=== PATIENT | female | born 1945 | race Caucasian/White ===

== ENCOUNTER 2020-12-16 13:05 | Outpatient (REF) | payer MEDICARE, SELFPAY ==
--- NOTE | ~2020-12-16 | XR_ITS ---
EXAMINATION: XR RIBS, RIGHT CLINICAL INFORMATION: Pleurodynia COMPARISON: Previous chest x-ray May 2019 TECHNIQUE: 3 views of the right ribs and one view of the chest were obtained. FINDINGS: The cardiac and mediastinal contours are stable. There is a large esophageal hernia. There are bilateral pulmonary nodules that are stable. The largest measures 1 cm in the left upper lobe. The lungs are otherwise clear. There is no pleural effusion or pneumothorax. There are right second through 10th rib fractures. These do not appear acute. There are degenerative changes of the spine. There is curvature of the thoracic spine to the right. There multiple thoracic compression fractures and post vertebroplasty changes. XR/XR ribs RT min 3V w CXR1V IMPRESSION: Multiple old-appearing right-sided rib fractures. No acute fracture seen.
== END 2020-12-16 13:06 | disposition home or self-care (01) ==
LOC: HO.HMGCX 13:05
PROVIDERS: PCP Hospitalist; Visit Provider Hospitalist
DX: R07.81 Pleurodynia (principal)
CPT/HCPCS: 71101

== ENCOUNTER 2021-01-04 11:48 | Outpatient (REF) | payer MEDICARE, SELFPAY ==
--- NOTE | ~2021-01-04 | XR_ITS ---
EXAMINATION: XR RIBS, RIGHT CLINICAL INFORMATION: Pleurodynia COMPARISON: Previous chest and right rib x-rays 12/16/2020 TECHNIQUE: 3 views of the right ribs were obtained. FINDINGS: There are multiple old-appearing right rib fractures. There are acute-appearing right seventh and eighth rib fractures. There are new patchy nodular opacities seen in the right lung worrisome for pneumonia. The cardiac and mediastinal contours are stable. There is a large esophageal hernia. There are multiple left lung nodules that are stable, largest measuring 1 cm. There is no pleural effusion or pneumothorax. There is scoliosis and degenerative changes of the thoracic spine. There are multiple old thoracic vertebral body compression fractures. There are post vertebroplasty changes. XR/XR ribs RT min 3V w CXR1V IMPRESSION: Multiple old right rib fractures. Acute-appearing right seventh and eighth rib fractures. New patchy opacities in the right lung worrisome for pneumonia.
== END 2021-01-04 11:49 | disposition home or self-care (01) ==
LOC: HO.HMGCX 11:48
PROVIDERS: PCP Hospitalist; Visit Provider Nurse Practitioner Family
DX: R07.81 Pleurodynia (principal); R06.02 Shortness of breath
CPT/HCPCS: 71101

== ENCOUNTER 2021-03-03 12:06 | Outpatient (REF) | payer MEDICARE, SELFPAY ==
--- NOTE | ~2021-03-03 | XR_ITS ---
EXAMINATION: XR CHEST CLINICAL INFORMATION: Shortness of breath COMPARISON: Rib radiographs from 01/04/2021, chest radiograph from 06/02/2019 TECHNIQUE: 2 views of the chest were obtained. FINDINGS: Multiple lung nodules the largest in the left upper lobe, stable in size measuring approximately 1.0 cm. Slightly increased patchy opacities in the right mid and lower lung field. Chronic interstitial lung markings. Biapical pleural parenchymal scarring. No pneumothorax. Trachea is midline. Large hiatal hernia. Cardiomediastinal silhouette is stable. No large pleural effusions. Osteopenia. Exaggeration of the thoracic kyphosis. Multilevel thoracolumbar vertebral augmentation. Soft tissues are unremarkable. XR/XR chest 2V IMPRESSION: 1. Multiple lung nodules the largest in the left upper lobe, stable in size measuring approximately 1.0 cm. 2. Slightly increased patchy opacities in the right mid and lower lung field. Developing infiltrate not excluded. 3. Chronic interstitial lung markings. 4. Biapical pleural parenchymal scarring. 5. Large hiatal hernia.
== END 2021-03-03 12:07 | disposition home or self-care (01) ==
LOC: HO.HMGCX 12:06
PROVIDERS: PCP Hospitalist; Visit Provider Hospitalist
DX: Z13.89 Encounter for screening for other disorder (principal)
CPT/HCPCS: 71046

== ENCOUNTER 2021-03-23 10:00 | Emergency (ER) | payer MEDICARE, SELFPAY ==
--- NOTE | ~2021-03-23 | CT_ITS ---
EXAMINATION: CT ANGIOGRAM OF THE CHEST WITH AND WITHOUT CONTRAST (CT PULMONARY ANGIOGRAM FOR PE) CLINICAL INFORMATION: Reason for Exam SOB, chest pain, hx PE, right rib pain s/p fall COMPARISON: Previous chest x-rays most recent from earlier the same day TECHNIQUE: Prior to contrast administration, noncontrast localization images were obtained. Subsequently, multidetector volumetric imaging was performed from the thoracic inlet to below the diaphragms following the administration 65 mL Omnipaque 350 intravenous contrast. No contrast reaction reported Sagittal, coronal, and MIP oblique sagittal reformatted images were obtained on the CT workstation, uploaded to PACS, and reviewed. This CT examination was performed using dose optimization techniques as appropriate, variously including the following: *Automated exposure control *Adjustment of mA and/or kV according to patient size (this includes techniques or standardized protocols for targeted exams where dose is matched to indication/reason for exam; i.e. extremities or head) *Use of iterative reconstruction technique Total exam dose-length product 215 mGy-cm FINDINGS: QUALITY OF STUDY/CONTRAST BOLUS: Satisfactory. PULMONARY ARTERIES: No central or segmental pulmonary emboli. THORACIC AORTA: No aneurysm or dissection. LUNG: There is evidence of severe emphysema. There are innumerable calcified pulmonary nodules suggestive of old granulomatous disease. The largest measures 1.1 x 1.5 cm in the left upper lobe axial image 11 series 5. There several central noncalcified nodules in the right middle lobe measuring 7 mm axial image 26 series 5, 5 mm axial image 29 series 5 and 7 mm axial image 30 series 5. There are several central noncalcified right lower lobe nodules as well 29 and 30 series 5. These probably represent extension of hilar adenopathy or intrapulmonary lymph nodes. There are increased interstitial markings and increased attenuation seen in the right lower lobe questionable for pneumonia or contusion.. PLEURA: No pleural effusion or pneumothorax. MEDIASTINUM: There is a large esophageal hernia or intrathoracic stomach. Heart does not appear enlarged. The thoracic aorta is tortuous. Pulmonary arteries are normal in size. There is diffuse mediastinal and bilateral hilar lymphadenopathy. No evidence of septal bowing or right heart strain. CHEST WALL/AXILLA: No axillary or internal mammary lymphadenopathy. OSSEOUS STRUCTURES: There are acute right posterior lateral ninth and 10th rib fractures. There is increased sclerosis of the right anterior third fourth and fifth ribs suggestive of older healing fractures. There are recent appearing left anterior second through fifth rib fractures. There are old healed left posterior 11th and 12th rib fractures. There are T 9 and T12 vertebral body compression fractures and post kyphoplasty changes. There are old-appearing T8 and T11 vertebral body compression fractures. There are T4 and T6 vertebral body compression fractures that may be recent. There is increased kyphosis. UPPER ABDOMEN: Unremarkable. No reflux of contrast into the hepatic veins to suggest elevated right heart pressures. CT/CT angio chest PE protocol IMPRESSION: No evidence of pulmonary embolism. Severe emphysema. Multiple calcified pulmonary nodules. Question small pneumonia or contusion in the right lower lobe. Multiple bilateral rib fractures of varying ages. There are right posterior lateral ninth and 10th rib fractures that appear acute. Increased thoracic kyphosis and multiple compression fractures. There are T4 and T6 compression fractures that may be recent. Large esophageal hernia. Mediastinal and hilar lymphadenopathy. VTE: negative
--- NOTE | ~2021-03-23 | XR_ITS ---
EXAMINATION: XR CHEST CLINICAL INFORMATION: Fall, trauma COMPARISON: Chest radiographs 03/03/2021, 01/04/2021, 12/16/2020, 07/08/2018 TECHNIQUE: 2 views of the chest were obtained. FINDINGS: Chest appears stable from recent exam 03/03/2021. Again, there is coarsening and possible superimposed basilar infiltrate right middle and lower zone without interval change. No interval new airspace opacity or pneumothorax, pleural reaction, or effusion. The costophrenic sulci are clear. There is a chronic probable calcified nodule left upper lobe stable from 2019. There is a stable moderate to large hiatal hernia. The heart is normal in size. The vascularity is normal. The hilar contours are normal. Bony structures again show accentuated thoracic kyphosis with stable mid to lower thoracic vertebral compressions and prior vertebral augmentation 2 location lower thoracic spine and upper lumbar spine. XR/XR chest 2V IMPRESSION: No acute abnormality from recent exam 03/03/2021.
[2021-03-23 10:07] VITALS: BP 97/68; PULSE 103; RESP 28; TEMP 36.9; O2SAT 91; BMI 23.4
--- NOTE | 2021-03-23 11:35 | ECG_ITS ---
Test Reason : FALL Blood Pressure : / mmHG Vent. Rate : 086 BPM Atrial Rate : 086 BPM P-R Int : 150 ms QRS Dur : 078 ms QT Int : 374 ms P-R-T Axes : 024 -09 057 degrees QTc Int : 447 ms Normal sinus rhythm Normal ECG When compared with ECG of 02-JUN-2019 19:21, Borderline criteria for Anterolateral infarct are no longer Present Referred By: Tianna Johnson Electronically Signed By:SURJIT BEY
--- NOTE | 2021-03-23 11:44 | ED_ITS ---
HPI - Fall General Chief Complaint: Fall Stated Complaint: FALL DIFF BREATHING Time Seen by Provider: 03/23/21 11:35 Source: patient and family Mode of arrival: ambulatory Limitations: no limitations History of Present Illness HPI Narrative: 75-year-old female with a history of chronic hypoxic respiratory failure on 3L NC, rheumatoid arthritis, history of lower extremity DVT no longer on anticoagulation, multiple rib fractures on the right side due to falling who presents to the ER with left-sided rib pain and shortness of breath after she fell yesterday patient reports she was at home sitting on the couch when she stood up she immediately fell and landed on the coffee table. She did not hit her head or lose consciousness. She reports ongoing left-sided rib pain and shortness of breath since then. She has no chest pain. She ride to the ER without her oxygen, and was very short of breath. She was tachypneic to 28, with oxygen saturation of 90%. Once she was placed on oxygen she felt much better. MD complaint: fall Onset (ago): day(s) (1) Fall from: standing Fall witnessed: no Place fall occurred: home Loss of consciousness: none Prolonged down time: no Symptoms prior to fall: none Location of injury: chest Severity: moderate Severity scale (1-10): 6 Quality: aching Associated symptoms (after fall): shortness of breath Related Data Home Medications Medication Instructions Recorded Confirmed albuterol sulfate 2.5 mg INHALATION Q6H PRN 08/06/20 12/16/20 amitriptyline 25 mg tablet 25 mg PO BEDTIME 08/06/20 12/16/20 calcium carbonate 600 mg (1,500 0 tab PO 08/06/20 12/16/20 mg)-vitamin D3 200 unit tablet clonazepam 1 mg tablet 1 mg PO BEDTIME 08/06/20 12/16/20 cyanocobalamin (vitamin B-12) 1,000 mcg PO DAILY 08/06/20 12/16/20 1,000 mcg tablet docusate sodium 100 mg capsule 100 mg PO BID 08/06/20 12/16/20 folic acid 1 mg tablet 2 mg PO DAILY 08/06/20 12/16/20 linaclotide 145 mcg capsule 145 mcg PO DAILY PRN 08/06/20 12/16/20 omeprazole 40 mg capsule,delayed 40 mg PO DAILY 08/06/20 12/16/20 release albuterol sulfate 90 mcg/actuation 2 puff INHALATION Q4H PRN 12/16/20 12/16/20 aerosol inhaler ferrous gluconate 324 mg (38 mg 324 mg PO BEDTIME 12/16/20 12/16/20 iron) tablet Previous Rx's Medication Instructions Recorded gabapentin 100 mg capsule 200 mg PO BEDTIME 14 Days #28 cap 03/17/21 Allergies Allergy/AdvReac Type Severity Reaction Status Date / Time loratadine [From CLARITIN] Allergy Unknown MOUTH SORE Verified 03/23/21 10:07 Review of Systems Review of Systems: Constitutional: No Fever, No Chills ENT/Mouth: No sore throat, No Rhinorrhea, No Swallowing Difficulty Cardiovascular: No Chest Pain, + SOB, No Orthopnea, No Edema Respiratory: No Cough, No Sputum, + Wheezing,+ dyspnea Gastrointestinal: No Nausea, No Vomiting, No Diarrhea, No abdominal Pain Genitourinary: No Dysuria, No Urinary Frequency, No Hematuria Musculoskeletal: + joint pain, + Myalgias Skin: No Skin Lesions, No rash Neuro: No Weakness, No Numbness, No Dizziness, No Headache Psych: No Anxiety/Panic, No Depression Heme/Lymph: No Bruising, No Lymphadenopathy Endocrine: No Polyuria, No Polydipsia PMFSH Past Medical History Medical History Compression fracture of T9 vertebra History of diverticulitis History of treatment for tuberculosis Left rib fracture Opioid abuse Surgical History H/O colonoscopy H/O esophagogastroduodenoscopy Social History Social History Advance Directives: Yes Advance Directives Information Provided: Yes Advance Directives on File: No Physical Exam Vital Signs: Vital Signs: Last Vital Signs Temp 98.1 F 03/23/21 11:57 Pulse 97 03/23/21 11:57 Resp 24 H 03/23/21 11:57 BP 141/77 H 03/23/21 11:57 Pulse Ox 92 03/23/21 11:57 Oxygen Flow Rate 3 03/23/21 10:07 Body Mass Index 23.4 Appearance: Alert. Oriented X3. No acute distress. Eyes: Pupils equal, round and reactive to light. ENT: Pharynx normal. Neck: Normal inspection. Neck supple. CVS: Normal heart rate and rhythm. Pulses normal. Respiratory: Mild respiratory distress. Breath sounds coarse throughout. Left lateral ribs with significant tenderness, ecchymosis noted to left lateral chest and left shoulder. Abdomen: Soft and nontender. +BS x4 Skin: Skin warm and dry. Normal skin color. Normal skin turgor. No rashes. Extremities: No lower extremity edema. normal ROM of the left shoulder. Neuro: Oriented X 3. No motor deficit. No sensory deficit. Course Course Course Narrative: 75-year-old female with a history of O2 dependent COPD, history of lower extremity blood clot no longer on anticoagulation presents to the ER with left-sided rib pain and shortness of breath status post fall yesterday. Unclear events surrounding the fall, does not appear to be mechanical. Will need to rule out PE. She most likely fractured ribs on the left side. Will get a CT scan with contrast to assess for both rib fractures, possible blood clot, possible pulmonary contusion. Her respiratory status is improved with supplemental oxygen. She is currently satting 92%, respiratory rate is improved to low 20s. Reevaluation(s) Reevaluation #1: Sign Margi ESPINOZA who will assume care. Patient is here with her clinical advisor who reports she fell twice yesterday and again this morning. She is concerned about her safety at home if CTA is negative for PE and she does not require admission, will plan for physical therapy evaluation and possible placem ent to short-term rehab. MDM - Fall Medical Records Attestation: I reviewed the patient's medical records. Lab Data Attestation: I reviewed the patient's lab results. Result diagrams: 03/23/21 11:55 03/23/21 11:55 Labs: Lab Results 03/23/21 03/23/21 03/23/21 Range/Units 11:55 11:55 11:55 WBC 10.0 (4.8-10.8) X10*3/uL RBC 5.64 H (4.20-5.50) X10*6/uL Hgb 13.0 (12.0-16.0) g/dl Hct 45.1 (37-47) % MCV 80.0 (80-98) fL MCH 23.0 L (27.0-33.0) pg MCHC 28.8 L (31.0-35.0) g/dl RDW 24.2 H (11.0-16.0) % Plt Count 371 (160-400) X10*3/uL MPV 9.6 (9.4-12.3) fL Immature Gran % (Auto) 0.3 (0.0-0.4) % Neut % (Auto) 81.0 H (45-73) % Lymph % (Auto) 10.9 L (20-40) % Aurora % (Auto) 6.6 (2-11) % Eos % (Auto) 0.8 (0-4) % Baso % (Auto) 0.4 (0-2) % Lymph # (Auto) 1.1 L (1.2-4.9) X10*3/uL Aurora # (Auto) 0.7 (0.1-1.2) X10*3/uL Eos # (Auto) 0.1 (0.0-0.4) X10*3/uL Baso # (Auto) 0.0 (0.0-0.2) X10*3/uL Abs Immat Gran (auto) 0.03 (0.00-0.03) X10*3/uL Absolute Neuts (auto) 8.1 (2.0-8.3) X10*3/uL Absolute Nucleated RBC 0.000 (0.0-0.012) X10*3/uL Nucleated RBC % (auto) 0.0 (0.0-0.2) /100WBC Sodium 139 (135-145) mmol/L Potassium 4.0 (3.3-5.1) mmol/L Chloride 106 (96-108) mmol/L Carbon Dioxide 26 (22-29) mmol/L Anion Gap 11 L (12-20) BUN 9 (9-16) mg/dL Creatinine 0.74 (0.5-1.4) mg/dL Estim Creat Clear Calc 48.6 Estimated GFR > 60 Random Glucose 107 (60-115) mg/dL Calcium 10.1 (8.4-10.2) mg/dL Magnesium 2.4 (1.6-2.6) mg/dL Troponin I High Sens 7.3 (<3.5-17.0) ng/L ECG Data Attestation: I personally reviewed and interpreted this ECG as follows: ECG interpretation date: 03/23/21 Interpretation: Normal sinus rhythm, heart rate 86 beats per minute, FL interval normal 150 MS, normal QTC, no ST segment elevations or depressions. Discharge Plan Discharge Clinical Impression: Rib pain on left side Prescriptions: No Action ferrous gluconate 324 mg (38 mg iron) tablet 324 mg PO BEDTIME RF: 0 albuterol sulfate 90 mcg/actuation HFA aerosol inhaler 2 puff inhalation Q4H PRN (Reason: wheezing) RF: 0 docusate sodium 100 mg capsule 100 mg PO BID RF: 0 clonazepam 1 mg tablet 1 mg PO BEDTIME RF: 0 calcium carbonate-vitamin D3 600 mg(1,500mg) -200 unit tablet 0 tab PO RF: 0 Linzess 145 mcg capsule 145 mcg PO DAILY PRN (Reason: constipation) RF: 0 folic acid 1 mg tablet 2 mg PO DAILY RF: 0 cyanocobalamin (vitamin B-12) 1,000 mcg tablet 1,000 mcg PO DAILY RF: 0 amitriptyline 25 mg tablet 25 mg PO BEDTIME RF: 0 albuterol sulfate 2.5 mg /3 mL (0.083 %) solution for nebulization 2.5 mg inhalation Q6H PRN (Reason: wheezing) RF: 0 omeprazole 40 mg capsule,delayed release(DR/EC) 40 mg PO DAILY RF: 0 gabapentin 100 mg capsule 200 mg PO BEDTIME 14 Days Qty: 28 RF: 0
[2021-03-23 11:57] VITALS: BP 141/77; PULSE 97; RESP 24; TEMP 36.7; O2SAT 92
[2021-03-23 12:00] LABS: MANUAL DIFF FLAG NO
[2021-03-23 12:06] LABS: Basophils Percent Auto 0.4 % (0-2); Eosinophils Absolute Auto 0.1 X10*3/uL (0.0-0.4); Eosinophils Percent Auto 0.8 % (0-4); Hematocrit 45.1 % (37-47); Imm Gran Abs Auto 0.03 X10*3/uL (0.00-0.03); Imm Gran Pct Auto 0.3 % (0.0-0.4); Lymphocytes Absolute Auto 1.1 X10*3/uL (1.2-4.9); Lymphocytes Percent Auto 10.9 % (20-40); Mean Corpuscular HGB Conc 28.8 g/dl (31.0-35.0); Mean Platelet Volume 9.6 fL (9.4-12.3); Monocytes Absolute Auto 0.7 X10*3/uL (0.1-1.2); Monocytes Percent Auto 6.6 % (2-11); Neutrophils Absolute Auto 8.1 X10*3/uL (2.0-8.3); Platelet Count 371 X10*3/uL (160-400); Red Blood Count 5.64 X10*6/uL (4.20-5.50); Red Cell Distribution Width 24.2 % (11.0-16.0)
[2021-03-23 12:17] LABS: Anion Gap 11 (12-20); Blood Urea Nitrogen 9 mg/dL (9-16); Calcium 10.1 mg/dL (8.4-10.2); Carbon Dioxide 26 mmol/L (22-29); Chloride 106 mmol/L (96-108); Creatinine Clr Calc Pharmacy 48.6; Estimated Glomerular Filt Rate > 60; Glucose Random 107 mg/dL (60-115); Magnesium 2.4 mg/dL (1.6-2.6); Sodium 139 mmol/L (135-145)
[2021-03-23 12:21] LABS: Troponin-I High Sensitivity 7.3 ng/L (<3.5-17.0)
[2021-03-23] MEDS: Lidocaine 4 % Patch ADH..PATCH 1 PATCH TRANSDERMA (12:36)
[2021-03-23] MEDS: iohexoL 350 MG/ML 100 ML INFUS..BTL IV (13:14)
== END 2021-03-23 13:26 | disposition left against medical advice (07) ==
PROVIDERS: Physician Assistant; Emergency Provider Emergency Medicine; PCP Hospitalist
DX: R07.81 Pleurodynia (principal); J44.9 Chronic obstructive pulmonary disease, unspecified; J96.11 Chronic respiratory failure with hypoxia; R29.6 Repeated falls; Z86.718 Personal history of other venous thrombosis and embolism; Z99.81 Dependence on supplemental oxygen
CPT/HCPCS: 36415; 71046; 71275; 80048; 83735; 84484; 85025; 93005; 99284; 99285; Q9967

== ENCOUNTER 2021-03-30 11:04 | Outpatient (REF) | payer MEDICARE, SELFPAY ==
--- NOTE | ~2021-03-30 | US_ITS ---
EXAMINATION: US VENOUS ULTRASOUND WITH DOPPLER LOWER EXTREMITY, LEFT CLINICAL INFORMATION: Left leg pain and swelling. History of PE. COMPARISON: Previous left lower extremity venous ultrasound October 2018 TECHNIQUE: Ultrasound of the deep veins is performed from the hip to the calf with compression sonography and color and pulse Doppler assessment. Spectral analysis with color-flow imaging is performed. FINDINGS: The left common femoral, profunda and superficial femoral veins are patent. There is occlusive thrombus seen in the popliteal vein and the visualized posterior tibial and peroneal veins in the calf. US/US venous duplex LE LT IMPRESSION: Left popliteal, peroneal and posterior tibial vein DVT.
== END 2021-03-30 11:05 | disposition home or self-care (01) ==
LOC: HO.HMGCX 11:04
PROVIDERS: PCP Hospitalist; Visit Provider Physician Assistant Medical
DX: I82.432 Acute embolism and thrombosis of left popliteal vein (principal); I82.452 Acute embolism and thrombosis of left peroneal vein; I82.442 Acute embolism and thrombosis of left tibial vein
CPT/HCPCS: 93971

== ENCOUNTER 2021-03-30 23:07 | Inpatient (IN) | payer MEDICARE, SELFPAY ==
--- NOTE | ~2021-03-30 | CT_ITS ---
EXAMINATION: CT ANGIOGRAM OF THE CHEST WITH AND WITHOUT CONTRAST (CT PULMONARY ANGIOGRAM FOR PE) CLINICAL INFORMATION: Reason for Exam tachycardia, dyspnea COMPARISON: 03/23/2021 TECHNIQUE: Prior to contrast administration, noncontrast localization images were obtained. Subsequently, multidetector volumetric imaging was performed from the thoracic inlet to below the diaphragms following the administration of 65 mL Omnipaque 350 intravenous contrast. No contrast reaction reported Sagittal, coronal, and MIP oblique sagittal reformatted images were obtained on the CT workstation, uploaded to PACS, and reviewed. This CT examination was performed using dose optimization techniques as appropriate, variously including the following: *Automated exposure control *Adjustment of mA and/or kV according to patient size (this includes techniques or standardized protocols for targeted exams where dose is matched to indication/reason for exam; i.e. extremities or head) *Use of iterative reconstruction technique Total exam dose-length product 253 mGy-cm FINDINGS: QUALITY OF STUDY/CONTRAST BOLUS: Satisfactory. PULMONARY ARTERIES: No central or segmental pulmonary emboli. THORACIC AORTA: No aneurysm or dissection. LUNG: Severe emphysema. Bilateral lower lobe subsegmental atelectasis. There is mild bronchial wall thickening within the right lower lobe with some mild tree in bud nodularity, decreased in conspicuity from prior. Scattered calcified granulomata and pulmonary nodules redemonstrated. PLEURA: No pleural effusion or pneumothorax. MEDIASTINUM: Large hiatal hernia. Normal heart size. No pericardial effusion. No hilar or mediastinal lymphadenopathy. No evidence of septal bowing or right heart strain. No reflux of contrast into the hepatic veins to suggest elevated right heart pressures. CHEST WALL/AXILLA: No axillary or internal mammary lymphadenopathy. OSSEOUS STRUCTURES: Multiple compression fractures redemonstrated throughout the thoracic spine, including the T4 and T6 vertebral bodies, T8 and T11 vertebral bodies. Previous kyphoplasty is at T9 T12 and L2. Subacute fractures noted involving the right posterior ninth and 10th ribs. UPPER ABDOMEN: Unremarkable. CT/CT angio chest PE protocol IMPRESSION: * No pulmonary embolism. * No aortic aneurysm or dissection. * Severe emphysema. * Improved aeration within right lower lobe, with mild persistent bronchial wall thickening in the right lower lobe and scattered endobronchial secretions/tree in bud nodularity peripherally. * Mild lower lung subsegmental atelectasis. * Large hiatal hernia. VTE: negative
--- NOTE | ~2021-03-30 | CT_ITS ---
EXAMINATION: CT ABDOMEN AND PELVIS WITH CONTRAST CLINICAL INFORMATION: Abdominal pain COMPARISON: 10/02/2017 TECHNIQUE: Multidetector volumetric images were obtained from the superior aspect of the liver through the pubic symphysis following administration 65 mL of Omnipaque 350 intravenous contrast. Sagittal and coronal reformatted images were obtained on the technologist's workstation. Oral contrast: No This CT examination was performed using dose optimization techniques as appropriate, variously including the following: *Automated exposure control *Adjustment of mA and/or kV according to patient size (this includes techniques or standardized protocols for targeted exams where dose is matched to indication/reason for exam; i.e. extremities or head) *Use of iterative reconstruction technique DLP: 386 mGy-cm FINDINGS: LUNG BASES: Severe emphysema. Bibasilar subsegmental atelectasis. Large hiatal hernia. LIVER, GALLBLADDER, AND BILIARY TREE: The liver is normal in size, shape, and attenuation. No focal hepatic lesion or biliary ductal dilatation is present. Gallbladder unremarkable. PANCREAS: Unremarkable. SPLEEN: Unremarkable. ADRENAL GLANDS: Stable 1.4 cm nodule within the left adrenal gland is 2018. This is benign and requires no specific follow-up. Normal right adrenal gland. KIDNEYS AND URETERS: The kidneys are normal in size, shape, and attenuation. Bilateral subcentimeter renal cysts redemonstrated. These are benign and require no further follow-up. No hydronephrosis, hydroureter, or calculi seen. No perinephric stranding. BLADDER: Unremarkable. GASTROINTESTINAL TRACT: Pancolonic diverticulosis, most concentrated within the sigmoid colon. No evidence of diverticulitis. Normal appendix. No evidence of obstruction. ABDOMINAL WALL: No significant hernia is appreciated. LYMPH NODES: Normal. VASCULAR: Aorta is atherosclerotic, without aneurysmal dilatation. Mild aneurysmal dilatation of the right common iliac artery measuring 2.0 cm. 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 PELVIC VISCERA: Unremarkable. OSSEOUS STRUCTURES: No acute or suspicious osseous abnormalities. Previous kyphoplasty is redemonstrated at T12 and L2. Stable compression fracture at T11. CT/CT abdomen pelvis w con IMPRESSION: No acute findings within the abdomen or pelvis to explain the patient's symptomatology. Chronic findings as above.
[2021-03-30 23:17] VITALS: BP 106/83; BP 113/68; PULSE 115; RESP 22; TEMP 37.1; O2SAT 90; O2SAT 96; BMI 23.3
--- NOTE | 2021-03-30 23:24 | ECG_ITS ---
Test Reason : ABD PAIN Blood Pressure : / mmHG Vent. Rate : 114 BPM Atrial Rate : 114 BPM P-R Int : 152 ms QRS Dur : 076 ms QT Int : 338 ms P-R-T Axes : 051 -27 050 degrees QTc Int : 465 ms Sinus tachycardia Left axis deviation Nonspecific T wave abnormality Abnormal ECG Heart rate has increased Nonspecific T wave abnormality is new Referred By: Breann Prieto Electronically Signed By:MAUDE WARD MD
--- NOTE | 2021-03-30 23:35 | ED.GENADULT ---
HPI - General Adult General Chief complaint: General Medical Stated complaint: LEFT LEG PAIN, LEFT AMA TODAY Time Seen by Provider: 03/30/21 23:21 Source: patient, EMS and old records reviewed Mode of arrival: EMS Limitations: other (poor historian) History of Present Illness HPI narrative: 75 yo female with home O2 COPD 3L NC, DVT hx reports she was on eliquis up until a week or so ago - her DVT from today showed occlusive thrombus in popliteal, posterior, tibial vein - she reports she has too much pain now and wants treatment. Of note on 03/23 she was being worked up for a PE and left AMA prior to CTA. She did not comply with recommendations to go to ED today. MD complaint: has known left leg DVT here with increased pain Onset (ago): day(s) (3) Location: left and lower extremity Severity: moderate Quality: aching and constant Pain Consistency: constant Relieving factors: none Exacerbating factors: movement Associated symptoms: loss of appetite Treatments prior to arrival: none Related Data Home Medications Medication Instructions Recorded Confirmed calcium carbonate 600 mg (1,500 1 tab PO DAILY 03/31/21 mg)-vitamin D3 200 unit tablet clonazepam 1 mg tablet 1 mg PO BEDTIME PRN 03/31/21 03/31/21 cyanocobalamin (vitamin B-12) 1,000 mcg PO DAILY 03/31/21 03/31/21 1,000 mcg tablet docusate sodium 100 mg capsule 100 mg PO BID 03/31/21 03/31/21 ferrous sulfate 325 mg (65 mg 325 mg PO BID 03/31/21 03/31/21 iron) tablet,delayed release folic acid 1 mg tablet 1 mg PO BID 03/31/21 03/31/21 gabapentin 100 mg capsule 100 mg PO 03/31/21 ipratropium 20 mcg-albuterol 100 1 puff INHALATION Q6H 03/31/21 03/31/21 mcg/actuation mist for inhalation (Combivent Respimat) linaclotide 145 mcg capsule 145 mcg PO DAILY 03/31/21 03/31/21 (Linzess) methotrexate sodium 2.5 mg tablet 2.5 mg PO 03/31/21 omeprazole 40 mg capsule,delayed 40 mg PO DAILY 03/31/21 03/31/21 release oxycodone 5 mg tablet 5 mg PO TID PRN 03/31/21 03/31/21 umeclidinium 62.5 mcg-vilanterol 1 inh INHALATION DAILY 03/31/21 03/31/21 25 mcg/actuation powdr for inhalation (Anoro Ellipta) Allergies Allergy/AdvReac Type Severity Reaction Status Date / Time loratadine [From CLARITIN] Allergy Unknown MOUTH SORE Verified 03/30/21 10:53 Review of Systems Review of Systems: Constitutional :No Fever, No Chills, No Fatigue, pos Malaise ENT/Mouth : No sore throat, No Rhinorrhea Eyes: No Eye Pain, No Swelling, No Redness Cardiovascular : No Chest Pain, pos SOB, No Dyspnea on Exertion, No Orthopnea, pos Edema, No Palpitations Respiratory : pos Cough, No Sputum, No Wheezing Gastrointestinal : No Nausea, No Vomiting, No Diarrhea, No Constipation, No abdominal Pain, No Hematochezia, No Melena Genitourinary : No Dysuria, No Urinary Frequency, No Hematuria, Musculoskeletal : pos joint pain, No Myalgias, no Joint Swelling Skin : No Skin Lesions, No rash Neuro : No Weakness, No Numbness, No Dizziness, No Headache Psych : No Anxiety/Panic, No Depression Heme/Lymph: No Bruising, No Bleeding,No Lymphadenopathy Endocrine : No Polyuria, No Polydipsia All other systems reviewed and are negative [facility] Past Medical History Attestation statement: The following information was validated with the patient. Medical History (Updated 03/31/21 @ 01:45 by Breann Prieto DO) Compression fracture of T9 vertebra DVT (deep venous thrombosis) History of diverticulitis History of treatment for tuberculosis Left rib fracture Opioid abuse Surgical History H/O colonoscopy H/O esophagogastroduodenoscopy Social History Social History (Updated 03/30/21 @ 23:46 by Breann Prieto DO) Patient Tobacco Use Status: Current everyday Tobacco user Use of substances other than those prescribed or required for medical reasons: No Advance Directives: No Advance Directives Information Provided: No Physical Exam Vital Signs: Vital Signs: Last Vital Signs Temp 98.7 F 03/30/21 23:17 Pulse 110 H 03/31/21 01:49 Resp 26 H 03/31/21 01:40 BP 134/77 03/31/21 01:40 Pulse Ox 90 L 03/31/21 01:40 Oxygen Flow Rate 3 03/30/21 23:17 Body Mass Index 19.5 Appearance: Alert. Oriented X3. No acute distress. Eyes: Pupils equal, round and reactive to light. ENT: Pharynx normal. Neck: Normal inspection. Neck supple. CVS: tachycardic heart rate and rhythm. Pulses normal. Respiratory: No respiratory distress. Breath sounds decreased throughout Abdomen: Soft and non-tender. Skin: Skin warm and dry. Normal skin color. Normal skin turgor. Extremities: L left pitting 1+ edema, erythema to medial aspect ttp along calf good distal pulses Neuro: Oriented X 3. No motor deficit. No sensory deficit. Course Course Course Narrative: added on cultures and lactic acid for WBC count, unsure if this is also underlying COPD - will start on antibiotics troponin likely due to demand hypoxia vs strain from PE dosed with lovenox already repeat neb ordered, she notes her O2 is normally low in 80s sometimes 70s at home. She is repeatedly asking for pain medications for restless leg much improved 90% on venti Fi O2 40%, feels better, signed out pending CTA for possible PE Medical Decision Making MDM Narrative Medical decision making narrative: 75 yo female with chronic abdominal pain, O2 dependent COPD, bipolar, known DVT not on AC therapy comes in with pain and tachycardia. At this time will obtain labs, CTA for PE, EKG, anticoagulate with lovenox until CTA back - he has left AMA x 2 this month in her course and treatment of DVT/possible PE. Lab Data Result diagrams: 03/30/21 23:29 03/30/21 23:29 Labs: Lab Results 03/30/21 03/30/21 03/30/21 Range/Units 23:29 23:29 23:29 WBC 16.2 H (4.8-10.8) X10*3/uL RBC 5.25 (4.20-5.50) X10*6/uL Hgb 11.9 L (12.0-16.0) g/dl Hct 40.3 (37-47) % MCV 76.8 L (80-98) fL MCH 22.7 L (27.0-33.0) pg MCHC 29.5 L (31.0-35.0) g/dl RDW 23.1 H (11.0-16.0) % Plt Count 302 (160-400) X10*3/uL MPV 9.9 (9.4-12.3) fL Immature Gran % (Auto) 0.6 H (0.0-0.4) % Neut % (Auto) 83.3 H (45-73) % Lymph % (Auto) 5.1 L (20-40) % [place] % (Auto) 10.1 (2-11) % Eos % (Auto) 0.5 (0-4) % Baso % (Auto) 0.4 (0-2) % Lymph # (Auto) 0.8 L (1.2-4.9) X10*3/uL [place] # (Auto) 1.6 H (0.1-1.2) X10*3/uL Eos # (Auto) 0.1 (0.0-0.4) X10*3/uL Baso # (Auto) 0.1 (0.0-0.2) X10*3/uL Abs Immat Gran (auto) 0.10 H (0.00-0.03) X10*3/uL Absolute Neuts (auto) 13.5 H (2.0-8.3) X10*3/uL Absolute Nucleated RBC 0.000 (0.0-0.012) X10*3/uL Nucleated RBC % (auto) 0.0 (0.0-0.2) /100WBC Smear Tech's Comments VERIFIED PT (9.9-13.0) SEC INR (0.9-1.1) APTT (24.1-38.0) SEC VBG pH (7.32-7.43) VBG pCO2 mmHg VBG pO2 mmHg VBG HCO3 (22-26) mmol/L VBG O2 Saturation % VBG Base Excess mmol/L Sodium 137 (135-145) mmol/L Potassium 3.5 (3.3-5.1) mmol/L Chloride 102 (96-108) mmol/L Carbon Dioxide 23 (22-29) mmol/L Anion Gap 16 (12-20) BUN 9 (9-16) mg/dL Creatinine 0.70 (0.5-1.4) mg/dL Estim Creat Clear Calc 62.1 Estimated GFR > 60 Random Glucose 121 H (60-115) mg/dL Lactic Acid (0.5-2.0) mmol/L Calcium 9.7 (8.4-10.2) mg/dL Magnesium 2.0 (1.6-2.6) mg/dL Total Bilirubin 1.0 (0.0-1.0) mg/dL Direct Bilirubin 0.3 (0.0-0.5) mg/dL AST 15 (5-31) U/L ALT 9 (0-31) U/L Alkaline Phosphatase 129 H (39-117) U/L Troponin I High Sens 182.5 H* D (<3.5-17.0) ng/L B-Natriuretic Peptide 100 (<100) pg/mL Total Protein 6.6 (6.5-8.0) g/dL Albumin 3.7 (3.5-5.0) g/dL COVID-19 (LAURENT) (Negative) COVID-19 Clin Com 03/30/21 03/30/21 03/31/21 Range/Units 23:29 23:29 00:18 WBC (4.8-10.8) X10*3/uL RBC (4.20-5.50) X10*6/uL Hgb (12.0-16.0) g/dl Hct (37-47) % MCV (80-98) fL MCH (27.0-33.0) pg MCHC (31.0-35.0) g/dl RDW (11.0-16.0) % Plt Count (160-400) X10*3/uL MPV (9.4-12.3) fL Immature Gran % (Auto) (0.0-0.4) % Neut % (Auto) (45-73) % Lymph % (Auto) (20-40) % [place] % (Auto) (2-11) % Eos % (Auto) (0-4) % Baso % (Auto) (0-2) % Lymph # (Auto) (1.2-4.9) X10*3/uL [place] # (Auto) (0.1-1.2) X10*3/uL Eos # (Auto) (0.0-0.4) X10*3/uL Baso # (Auto) (0.0-0.2) X10*3/uL Abs Immat Gran (auto) (0.00-0.03) X10*3/uL Absolute Neuts (auto) (2.0-8.3) X10*3/uL Absolute Nucleated RBC (0.0-0.012) X10*3/uL Nucleated RBC % (auto) (0.0-0.2) /100WBC Smear Tech's Comments PT 15.9 H (9.9-13.0) SEC INR 1.4 H (0.9-1.1) APTT 30.2 (24.1-38.0) SEC VBG pH (7.32-7.43) VBG pCO2 mmHg VBG pO2 mmHg VBG HCO3 (22-26) mmol/L VBG O2 Saturation % VBG Base Excess mmol/L Sodium (135-145) mmol/L Potassium (3.3-5.1) mmol/L Chloride (96-108) mmol/L Carbon Dioxide (22-29) mmol/L Anion Gap (12-20) BUN (9-16) mg/dL Creatinine (0.5-1.4) mg/dL Estim Creat Clear Calc Estimated GFR Random Glucose (60-115) mg/dL Lactic Acid 1.4 (0.5-2.0) mmol/L Calcium (8.4-10.2) mg/dL Magnesium (1.6-2.6) mg/dL Total Bilirubin (0.0-1.0) mg/dL Direct Bilirubin (0.0-0.5) mg/dL AST (5-31) U/L ALT (0-31) U/L Alkaline Phosphatase (39-117) U/L Troponin I High Sens (<3.5-17.0) ng/L B-Natriuretic Peptide (<100) pg/mL Total Protein (6.5-8.0) g/dL Albumin (3.5-5.0) g/dL COVID-19 (LAURENT) Negative (Negative) COVID-19 Clin Com See Note 03/31/21 Range/Units 00:22 WBC (4.8-10.8) X10*3/uL RBC (4.20-5.50) X10*6/uL Hgb (12.0-16.0) g/dl Hct (37-47) % MCV (80-98) fL MCH (27.0-33.0) pg MCHC (31.0-35.0) g/dl RDW (11.0-16.0) % Plt Count (160-400) X10*3/uL MPV (9.4-12.3) fL Immature Gran % (Auto) (0.0-0.4) % Neut % (Auto) (45-73) % Lymph % (Auto) (20-40) % [place] % (Auto) (2-11) % Eos % (Auto) (0-4) % Baso % (Auto) (0-2) % Lymph # (Auto) (1.2-4.9) X10*3/uL [place] # (Auto) (0.1-1.2) X10*3/uL Eos # (Auto) (0.0-0.4) X10*3/uL Baso # (Auto) (0.0-0.2) X10*3/uL Abs Immat Gran (auto) (0.00-0.03) X10*3/uL Absolute Neuts (auto) (2.0-8.3) X10*3/uL Absolute Nucleated RBC (0.0-0.012) X10*3/uL Nucleated RBC % (auto) (0.0-0.2) /100WBC Smear Tech's Comments PT (9.9-13.0) SEC INR (0.9-1.1) APTT (24.1-38.0) SEC VBG pH 7.56 H (7.32-7.43) VBG pCO2 25 mmHg VBG pO2 55 mmHg VBG HCO3 22 (22-26) mmol/L VBG O2 Saturation 88.0 % VBG Base Excess 2.4 mmol/L Sodium (135-145) mmol/L Potassium (3.3-5.1) mmol/L Chloride (96-108) mmol/L Carbon Dioxide (22-29) mmol/L Anion Gap (12-20) BUN (9-16) mg/dL Creatinine (0.5-1.4) mg/dL Estim Creat Clear Calc Estimated GFR Random Glucose (60-115) mg/dL Lactic Acid (0.5-2.0) mmol/L Calcium (8.4-10.2) mg/dL Magnesium (1.6-2.6) mg/dL Total Bilirubin (0.0-1.0) mg/dL Direct Bilirubin (0.0-0.5) mg/dL AST (5-31) U/L ALT (0-31) U/L Alkaline Phosphatase (39-117) U/L Troponin I High Sens (<3.5-17.0) ng/L B-Natriuretic Peptide (<100) pg/mL Total Protein (6.5-8.0) g/dL Albumin (3.5-5.0) g/dL COVID-19 (LAURENT) (Negative) COVID-19 Clin Com ECG Data Attestation: I personally reviewed and interpreted this ECG as follows: Interpretation: Rate: 114 Rhythm: sinus tachycardia [place]: left Normal P waves. Normal DONNA. Normal QRS complex. ST T wave : nonspecific, no TAM qTC: normal prior studies: no acute ischemia The study has been interpreted contemporaneously by me. . Critical Care Time Critical Care Time Critical Care Time: Yes Total Critical Care Time: 45 Attestation: review of records, assessment of O2, repeat nebs, frequent bedside assessments I attest to this time spent taking care of the patient Discharge Plan Discharge Clinical Impression: Elevated troponin DVT (deep venous thrombosis) Qualifiers: DVT location: lower extremity Affected thrombotic vein of extremity: popliteal Chronicity: acute Laterality: left Qualified Code(s): I82.432 - Acute embolism and thrombosis of left popliteal vein COPD (chronic obstructive pulmonary disease) Qualifiers: COPD type: COPD with acute exacerbation Qualified Code(s): J44.1 - Chronic obstructive pulmonary disease with (acute) exacerbation Leukocytosis Qualifiers: Leukocytosis type: unspecified Qualified Code(s): D72.829 - Elevated white blood cell count, unspecified Prescriptions: No Action clonazepam 1 mg tablet 1 mg PO BEDTIME PRN (Reason: Insomnia) RF: 0 cyanocobalamin (vitamin B-12) 1,000 mcg tablet 1,000 mcg PO DAILY RF: 0 calcium carbonate-vitamin D3 600 mg(1,500mg) -200 unit tablet 1 tab PO DAILY RF: 0 omeprazole 40 mg capsule,delayed release(DR/EC) 40 mg PO DAILY RF: 0 methotrexate sodium 2.5 mg tablet 2.5 mg PO RF: 0 docusate sodium 100 mg capsule 100 mg PO BID RF: 0 folic acid 1 mg tablet 1 mg PO BID RF: 0 gabapentin 100 mg capsule 100 mg PO RF: 0 ferrous sulfate 325 mg (65 mg iron) tablet,delayed release (DR/EC) 325 mg PO BID RF: 0 oxycodone 5 mg tablet 5 mg PO TID PRN (Reason: Pain) RF: 0 Linzess 145 mcg capsule 145 mcg PO DAILY RF: 0 Anoro Ellipta 62.5-25 mcg/actuation Blister With Device 1 inh INHALATION DAILY RF: 0 Combivent Respimat 20-100 mcg/actuation Mist 1 puff INHALATION Q6H RF: 0
[2021-03-30] MEDS: oxyCODONE HCl Immed Release 5 MG TABLET PO (23:49)
[2021-03-30 23:58] LABS: Basophils Absolute Auto 0.1 X10*3/uL (0.0-0.2); Basophils Percent Auto 0.4 % (0-2); Eosinophils Absolute Auto 0.1 X10*3/uL (0.0-0.4); Eosinophils Percent Auto 0.5 % (0-4); Hematocrit 40.3 % (37-47); Hemoglobin 11.9 g/dl (12.0-16.0); Imm Gran Pct Auto 0.6 % (0.0-0.4); Lymphocytes Absolute Auto 0.8 X10*3/uL (1.2-4.9); Lymphocytes Percent Auto 5.1 % (20-40); MANUAL DIFF FLAG SCAN; Mean Corpuscular HGB Conc 29.5 g/dl (31.0-35.0); Mean Corpuscular Hemoglobin 22.7 pg (27.0-33.0); Mean Corpuscular Volume 76.8 fL (80-98); Mean Platelet Volume 9.9 fL (9.4-12.3); Monocytes Absolute Auto 1.6 X10*3/uL (0.1-1.2); Monocytes Percent Auto 10.1 % (2-11); Neutrophils Absolute Auto 13.5 X10*3/uL (2.0-8.3); Neutrophils Percent Auto 83.3 % (45-73); Platelet Count 302 X10*3/uL (160-400); Red Blood Count 5.25 X10*6/uL (4.20-5.50); Red Cell Distribution Width 23.1 % (11.0-16.0); SCAN SMEAR FLAG 1; White Blood Count 16.2 X10*3/uL (4.8-10.8)
[2021-03-31] VITALS (18 sets, daily range): BP systolic 97–159; BP diastolic 50–97; PULSE 87–116; RESP 16–32; TEMP 36.6–37.2; O2SAT 78–99; BMI 19.5
--- NOTE | 2021-03-31 | ECG_ITS ---
Test Reason : REPEAT Blood Pressure : / mmHG Vent. Rate : 109 BPM Atrial Rate : 109 BPM P-R Int : 150 ms QRS Dur : 082 ms QT Int : 354 ms P-R-T Axes : 061 -03 083 degrees QTc Int : 476 ms Sinus tachycardia Nonspecific T wave abnormality Lateral leads Abnormal ECG T wave amplitude has decreased in Lateral leads Referred By: Alireza Ramirez Electronically Signed By:MAUDE WARD MD
[2021-03-31] MEDS: methylPREDNISolone Sod Succ 125 MG/2 ML VIAL IVPUSH (00:05)
[2021-03-31 00:12] LABS: Alanine Aminotransferase 9 U/L (0-31); Albumin Level 3.7 g/dL (3.5-5.0); Alkaline Phosphatase 129 U/L (39-117); Anion Gap 16 (12-20); Aspartate Amino Transferase 15 U/L (5-31); Bilirubin Direct 0.3 mg/dL (0.0-0.5); Blood Urea Nitrogen 9 mg/dL (9-16); Calcium 9.7 mg/dL (8.4-10.2); Carbon Dioxide 23 mmol/L (22-29); Chloride 102 mmol/L (96-108); Creatinine Clr Calc Pharmacy 62.1; Estimated Glomerular Filt Rate > 60; Glucose Random 121 mg/dL (60-115); Potassium 3.5 mmol/L (3.3-5.1); Sodium 137 mmol/L (135-145); Total Protein 6.6 g/dL (6.5-8.0)
[2021-03-31 00:16] LABS: INTERNATIONAL NORM RATIO 1.4 (0.9-1.1); Prothrombin Time 15.9 SEC (9.9-13.0)
[2021-03-31 00:17] LABS: SLIDE REVIEW VERIFIED
[2021-03-31 00:19] LABS: Partial Thromboplastin Time 30.2 SEC (24.1-38.0)
[2021-03-31] MEDS: Albuterol Sulfate (0.083%) 2.5 MG/3 ML VIAL.NEB INHALE ×2 (00:20→01:49)
[2021-03-31] MEDS: cefTRIAXone sodium 1 GM in 0.9 % Sodium Chloride 50 ML IV (00:26)
[2021-03-31] MEDS: Enoxaparin Sodium 60 MG/0.6 ML SYRINGE 55 MG SUBCUT ×2 (00:26→09:18)
[2021-03-31 00:27] LABS: VBG Base Excess 2.4 mmol/L; VBG HCO3 22 mmol/L (22-26); VBG pCO2 25 mmHg; VBG pH 7.56 (7.32-7.43); VBG pO2 55 mmHg
[2021-03-31 00:27] LABS: Venous Blood Gas Refer to POC result
--- NOTE | 2021-03-31 00:28 | PC.NURSE ---
Pt medicated per AUG with Rocephin and Lovenox. Lovenox 55 mg ordered but not stocked within pyxis. 100 mg/ml of Lovenox pulled from pyxis, 55 mg given per AUG. Two RNs at bedside for confirmation.
[2021-03-31 00:36] LABS: Lactic Acid 1.4 mmol/L (0.5-2.0)
[2021-03-31] MEDS: oxyCODONE HCl Immed Release 5 MG TABLET PO ×3 (00:39→20:11)
[2021-03-31 00:44] LABS: B Type Natriuretic Peptide 100 pg/mL (<100); Troponin-I High Sensitivity 182.5 ng/L (<3.5-17.0)
--- NOTE | 2021-03-31 00:51 | PC.NURSE ---
PT O2 decreasing to 77% on 2 L/min. Oxygen increased to 6 L/min, O2 increased to 88%. PT able to stand and pivot to transfer self to bed side commode.
--- NOTE | 2021-03-31 01:01 | PC.NURSE ---
Med Rec completed to the best of this nurses ability given a vague list by pt and most recent refills. Pt unable to assist, unsure what medications she is/isn't taking and/or dosages.
[2021-03-31 01:05] LABS: COVID-19 Test Negative (Negative)
--- NOTE | 2021-03-31 01:08 | PC.NURSE ---
Pt thrashing in in bed, unable to get comfortable, yelling please god help me, I can't take this anymore. Pt unable to be repositioned into a POC, pt provided with pillows and warm blankets but this RN unable to assist pt into a POC. Pt initially satting @ 78% on 2 lpm, increased to 6 lpm while waiting for RT to place pt on UPD. MD at bedside for reeval, pt medicated with Oxycodone PO x 2. Plan for IV Fentanyl due to severe pain. Awaiting CT.
[2021-03-31] MEDS: fentaNYL citrate/PF 100 MCG/2 ML VIAL 50 MCG IVPUSH (01:13)
--- NOTE | 2021-03-31 01:15 | PC.NURSE ---
Pt repeatedly hitting herself in the legs, yelling you don't understand, I'm in so much pain!! Pt medicated for pain with Fentanyl per AUG.
--- NOTE | 2021-03-31 01:25 | PC.NURSE ---
Pt assisted OOB, sitting on edge of bed with legs dangling over side for comfort per request. O2 sat noted to increase to 88-90%. MD aware. Awaiting RT for additional UPD.
--- NOTE | 2021-03-31 01:39 | PC.NURSE ---
RT called for second UPD. Pt constantly desatting into low 80s. Venti mask increased to 8/40 per MD request. O2 sat 90% at this time.
--- NOTE | 2021-03-31 01:43 | PC.NURSE ---
Pt pain free at this time. RT at bedside for second UPD.
--- NOTE | 2021-03-31 02:43 | PC.NURSE ---
Pt off to CT on hospital bed.
--- NOTE | 2021-03-31 02:51 | PC.NURSE ---
Pt returns from CT at this time.
[2021-03-31] MEDS: iohexoL 350 MG/ML 100 ML INFUS..BTL 65 ML IV ×2 (02:56→05:48)
[2021-03-31 03:10] LABS: Troponin-I High Sensitivity 142.4 ng/L (<3.5-17.0)
--- NOTE | 2021-03-31 03:42 | PC.NURSE ---
MD requested that PT be switched to nasal cannula on 4 L/min instead on venturi mask on . PT O2 decreased to 86% on nasal cannula. PT switched back to venturi mask on 10-14. PT O2 is currently at 87%. made aware.
[2021-03-31 04:08] LABS: Appearance Urine CLEAR; Color Urine YELLOW; Glucose Urine UA NEG (NEG); Leukocyte Esterase Urine NEG (NEG); Nitrite Urine NEG (NEG); UACC Culture Trigger NO; Urine Blood TRACE (NEG); Urine Ketones 15 MG/DL (NEG); Urine Protein TRACE MG/DL (NEG-TRACE)
--- NOTE | 2021-03-31 04:08 | PC.NURSE ---
Venturi Mask setting increasing to 8-40. PT O2 at 89% at this time.
--- NOTE | 2021-03-31 04:09 | PC.NURSE ---
Pain is complaining of 10/10 pain in her legs due to restless legs.
[2021-03-31 04:19] LABS: Bacteria Urine 1+ /LPF; Squamous Epithelial Cell Urine 1+ /LPF
--- NOTE | 2021-03-31 05:25 | PC.NURSE ---
PT needs to to be transported to CT. PT requesting pain medication in order to tolerate the procedure. Provider made aware.
[2021-03-31] MEDS: fentaNYL citrate/PF 100 MCG/2 ML VIAL 25 MCG IVPUSH (05:41)
--- NOTE | 2021-03-31 05:50 | PC.NURSE ---
Pt found standing in room OOB, pulling venti mask off face. Pt redirected multiple times to remain in bed and on O2. Pt medicated for pain with Fentanyl, states youre killing me!!!!!!! I want to leave right now!! notified that pt is requesting discharge despite hypoxia without oxygen.
--- NOTE | 2021-03-31 06:24 | PC.NURSE ---
Pt continues requesting to leave. Pt standing in room, looking for her cell phone to call for a ride. aware. Per MD, to contact [facility] to see what her insurance covers, Eliquis or Xarelto. This RN calling [facility] on [facility] in [place] but the pharmacy was closed. This RN calling [facility] on [facility] in [place]. Per pharmacist, You need to send in a RX, then we contact the insurance for coverage. I can't just call them to see what's covered, I'm the only pharmacist here. aware.
--- NOTE | 2021-03-31 06:50 | PC.NURSE ---
Pt refusing to wear venti mask. Pt agreeable to NC @ 4 lpm. Pt immediately desatting to low 80s. O2 increased to 5 lpm, sat increased to 86%.
[2021-03-31] MEDS: oxyCODONE HCl Immed Release 5 MG TABLET 10 MG PO (09:07)
--- NOTE | 2021-03-31 09:14 | PC.NURSE ---
PT IS UNABLE TO STAY STILL, KEEPS JUMPING UP FROM THE BED TO THE FLOOR, KEEPS TAKING HER OXYGEN CANNUAL OUT FROM HER NOSE, SATING AT 89-90% ON 5L. PT IS ALERT AND ORIENTED AND INSISTS ON GOING HOME, DOES NOT WANT TO SAY TO BE ADMITTED.
--- NOTE | 2021-03-31 11:25 | PHA.MEDREC ---
Pharmacy Consult ? Medication Reconciliation Pharmacy has completed the medication reconciliation. Patient was able to verify pills however she was not sure of which inhalers she is on. She reported she has a lot. She thinks she is taking trelgy but only Anoro and Combivent are her claim history. Patient was too worried about leaving. Lakeisha Lindsey, PharmD
--- NOTE | 2021-03-31 12:50 | ED_ITS ---
HPI - General Adult General Chief complaint: General Medical Stated complaint: LEFT LEG PAIN, LEFT AMA TODAY Time Seen by Provider: 03/30/21 23:21 Source: patient, EMS and old records reviewed Mode of arrival: EMS Limitations: other (poor historian) History of Present Illness Location: left and lower extremity Quality: aching and constant Relieving factors: none Exacerbating factors: movement Associated symptoms: loss of appetite Treatments prior to arrival: none Related Data Home Medications Medication Instructions Recorded Confirmed albuterol sulfate 90 mcg/actuation 2 puff INHALATION Q4H PRN 03/31/21 03/31/21 aerosol inhaler (Ventolin HFA) calcium carbonate 600 mg (1,500 1 tab PO DAILY 03/31/21 03/31/21 mg)-vitamin D3 200 unit tablet clonazepam 1 mg tablet 1 mg PO BEDTIME PRN 03/31/21 03/31/21 cyanocobalamin (vitamin B-12) 1,000 mcg PO DAILY 03/31/21 03/31/21 1,000 mcg tablet docusate sodium 100 mg capsule 100 mg PO BID 03/31/21 03/31/21 ferrous sulfate 325 mg (65 mg 325 mg PO BID 03/31/21 03/31/21 iron) tablet,delayed release folic acid 1 mg tablet 1 mg PO BID 03/31/21 03/31/21 gabapentin 100 mg capsule 200 mg PO BEDTIME 03/31/21 03/31/21 ipratropium 20 mcg-albuterol 100 1 puff INHALATION Q6H PRN 03/31/21 03/31/21 mcg/actuation mist for inhalation (Combivent Respimat) linaclotide 145 mcg capsule 145 mcg PO DAILY 03/31/21 03/31/21 (Linzess) methotrexate sodium 2.5 mg tablet 10 mg PO SA 03/31/21 03/31/21 omeprazole 40 mg capsule,delayed 40 mg PO DAILY 03/31/21 03/31/21 release oxycodone 5 mg tablet 5 mg PO TID PRN 03/31/21 03/31/21 umeclidinium 62.5 mcg-vilanterol 1 inh INHALATION DAILY 03/31/21 03/31/21 25 mcg/actuation powdr for inhalation (Anoro Ellipta) Allergies Allergy/AdvReac Type Severity Reaction Status Date / Time loratadine [From CLARITIN] Allergy Unknown MOUTH SORE Verified 03/30/21 10:53 [facility] Past Medical History Medical History (Updated 03/31/21 @ 01:45 by Breann Prieto DO) Compression fracture of T9 vertebra DVT (deep venous thrombosis) History of diverticulitis History of treatment for tuberculosis Left rib fracture Opioid abuse Surgical History H/O colonoscopy H/O esophagogastroduodenoscopy Social History Social History (Updated 03/30/21 @ 23:46 by Breann Prieto DO) Patient Tobacco Use Status: Current everyday Tobacco user Use of substances other than those prescribed or required for medical reasons: No Advance Directives: No Advance Directives Information Provided: No Physical Exam Vital Signs: Vital Signs: Last Vital Signs Temp 97.9 F 03/31/21 02:19 Pulse 108 H 03/31/21 09:09 Resp 16 03/31/21 12:48 BP 133/50 L 03/31/21 12:48 Pulse Ox 89 L 03/31/21 09:09 Oxygen Flow Rate 3 03/30/21 23:17 Body Mass Index 19.5 Course Course Course Narrative: Please refer to previous note for full details. Adding addendum was not available. I received sign-out from Dr. Sexton. Patient's friend refuses to excelsior picker patient's medication from the pharmacy and refuses to give her a ride home. Patient accepted to be admitted to the hospital. Patient received 1 dose of Lovenox this morning. Patient also being treated for COPD exacerbation. Given ceftriaxone, Solu- Medrol, multiple doses of albuterol. Patient uses usually 3 L at home, patient is now on 5 L saturating at 88-90% It is possible that patient may try to leave against medical advice. The patient states that she is willing to stay until tomorrow. I discussed the above-mentioned with Dr. Hay. Medical Decision Making Lab Data Result diagrams: 03/30/21 23:29 03/30/21 23:29 Labs: Lab Results 03/30/21 03/30/21 03/30/21 Range/Units 23:29 23:29 23:29 WBC 16.2 H (4.8-10.8) X10*3/uL RBC 5.25 (4.20-5.50) X10*6/uL Hgb 11.9 L (12.0-16.0) g/dl Hct 40.3 (37-47) % MCV 76.8 L (80-98) fL MCH 22.7 L (27.0-33.0) pg MCHC 29.5 L (31.0-35.0) g/dl RDW 23.1 H (11.0-16.0) % Plt Count 302 (160-400) X10*3/uL MPV 9.9 (9.4-12.3) fL Immature Gran % (Auto) 0.6 H (0.0-0.4) % Neut % (Auto) 83.3 H (45-73) % Lymph % (Auto) 5.1 L (20-40) % [place] % (Auto) 10.1 (2-11) % Eos % (Auto) 0.5 (0-4) % Baso % (Auto) 0.4 (0-2) % Lymph # (Auto) 0.8 L (1.2-4.9) X10*3/uL [place] # (Auto) 1.6 H (0.1-1.2) X10*3/uL Eos # (Auto) 0.1 (0.0-0.4) X10*3/uL Baso # (Auto) 0.1 (0.0-0.2) X10*3/uL Abs Immat Gran (auto) 0.10 H (0.00-0.03) X10*3/uL Absolute Neuts (auto) 13.5 H (2.0-8.3) X10*3/uL Absolute Nucleated RBC 0.000 (0.0-0.012) X10*3/uL Nucleated RBC % (auto) 0.0 (0.0-0.2) /100WBC Smear Tech's Comments VERIFIED PT (9.9-13.0) SEC INR (0.9-1.1) APTT (24.1-38.0) SEC VBG pH (7.32-7.43) VBG pCO2 mmHg VBG pO2 mmHg VBG HCO3 (22-26) mmol/L VBG O2 Saturation % VBG Base Excess mmol/L Sodium 137 (135-145) mmol/L Potassium 3.5 (3.3-5.1) mmol/L Chloride 102 (96-108) mmol/L Carbon Dioxide 23 (22-29) mmol/L Anion Gap 16 (12-20) BUN 9 (9-16) mg/dL Creatinine 0.70 (0.5-1.4) mg/dL Estim Creat Clear Calc 62.1 Estimated GFR > 60 Random Glucose 121 H (60-115) mg/dL Lactic Acid (0.5-2.0) mmol/L Calcium 9.7 (8.4-10.2) mg/dL Magnesium 2.0 (1.6-2.6) mg/dL Total Bilirubin 1.0 (0.0-1.0) mg/dL Direct Bilirubin 0.3 (0.0-0.5) mg/dL AST 15 (5-31) U/L ALT 9 (0-31) U/L Alkaline Phosphatase 129 H (39-117) U/L Troponin I High Sens 182.5 H* D (<3.5-17.0) ng/L B-Natriuretic Peptide 100 (<100) pg/mL Total Protein 6.6 (6.5-8.0) g/dL Albumin 3.7 (3.5-5.0) g/dL Urine Color Urine Appearance Urine pH (5.0-8.0) Ur Specific [place] (1.005-1.025) Urine Protein (NEG-TRACE) MG/DL Urine Glucose (UA) (NEG) MG/DL Urine Ketones (NEG) MG/DL Urine Blood (NEG) Urine Nitrite (NEG) Ur Leukocyte Esterase (NEG) Urine RBC (0) /HPF Urine WBC (0-4) /HPF Ur Squamous Epith Cells /LPF Urine Bacteria /LPF COVID-19 ([facility]) (Negative) COVID-19 Clin Com 03/30/21 03/30/21 03/31/21 Range/Units 23:29 23:29 00:18 WBC (4.8-10.8) X10*3/uL RBC (4.20-5.50) X10*6/uL Hgb (12.0-16.0) g/dl Hct (37-47) % MCV (80-98) fL MCH (27.0-33.0) pg MCHC (31.0-35.0) g/dl RDW (11.0-16.0) % Plt Count (160-400) X10*3/uL MPV (9.4-12.3) fL Immature Gran % (Auto) (0.0-0.4) % Neut % (Auto) (45-73) % Lymph % (Auto) (20-40) % [place] % (Auto) (2-11) % Eos % (Auto) (0-4) % Baso % (Auto) (0-2) % Lymph # (Auto) (1.2-4.9) X10*3/uL [place] # (Auto) (0.1-1.2) X10*3/uL Eos # (Auto) (0.0-0.4) X10*3/uL Baso # (Auto) (0.0-0.2) X10*3/uL Abs Immat Gran (auto) (0.00-0.03) X10*3/uL Absolute Neuts (auto) (2.0-8.3) X10*3/uL Absolute Nucleated RBC (0.0-0.012) X10*3/uL Nucleated RBC % (auto) (0.0-0.2) /100WBC Smear Tech's Comments PT 15.9 H (9.9-13.0) SEC INR 1.4 H (0.9-1.1) APTT 30.2 (24.1-38.0) SEC VBG pH (7.32-7.43) VBG pCO2 mmHg VBG pO2 mmHg VBG HCO3 (22-26) mmol/L VBG O2 Saturation % VBG Base Excess mmol/L Sodium (135-145) mmol/L Potassium (3.3-5.1) mmol/L Chloride (96-108) mmol/L Carbon Dioxide (22-29) mmol/L Anion Gap (12-20) BUN (9-16) mg/dL Creatinine (0.5-1.4) mg/dL Estim Creat Clear Calc Estimated GFR Random Glucose (60-115) mg/dL Lactic Acid 1.4 (0.5-2.0) mmol/L Calcium (8.4-10.2) mg/dL Magnesium (1.6-2.6) mg/dL Total Bilirubin (0.0-1.0) mg/dL Direct Bilirubin (0.0-0.5) mg/dL AST (5-31) U/L ALT (0-31) U/L Alkaline Phosphatase (39-117) U/L Troponin I High Sens (<3.5-17.0) ng/L B-Natriuretic Peptide (<100) pg/mL Total Protein (6.5-8.0) g/dL Albumin (3.5-5.0) g/dL Urine Color Urine Appearance Urine pH (5.0-8.0) Ur Specific [place] (1.005-1.025) Urine Protein (NEG-TRACE) MG/DL Urine Glucose (UA) (NEG) MG/DL Urine Ketones (NEG) MG/DL Urine Blood (NEG) Urine Nitrite (NEG) Ur Leukocyte Esterase (NEG) Urine RBC (0) /HPF Urine WBC (0-4) /HPF Ur Squamous Epith Cells /LPF Urine Bacteria /LPF COVID-19 ([facility]) Negative (Negative) COVID-19 Clin Com See Note 03/31/21 03/31/21 03/31/21 Range/Units 00:22 02:29 04:02 WBC (4.8-10.8) X10*3/uL RBC (4.20-5.50) X10*6/uL Hgb (12.0-16.0) g/dl Hct (37-47) % MCV (80-98) fL MCH (27.0-33.0) pg MCHC (31.0-35.0) g/dl RDW (11.0-16.0) % Plt Count (160-400) X10*3/uL MPV (9.4-12.3) fL Immature Gran % (Auto) (0.0-0.4) % Neut % (Auto) (45-73) % Lymph % (Auto) (20-40) % [place] % (Auto) (2-11) % Eos % (Auto) (0-4) % Baso % (Auto) (0-2) % Lymph # (Auto) (1.2-4.9) X10*3/uL [place] # (Auto) (0.1-1.2) X10*3/uL Eos # (Auto) (0.0-0.4) X10*3/uL Baso # (Auto) (0.0-0.2) X10*3/uL Abs Immat Gran (auto) (0.00-0.03) X10*3/uL Absolute Neuts (auto) (2.0-8.3) X10*3/uL Absolute Nucleated RBC (0.0-0.012) X10*3/uL Nucleated RBC % (auto) (0.0-0.2) /100WBC Smear Tech's Comments PT (9.9-13.0) SEC INR (0.9-1.1) APTT (24.1-38.0) SEC VBG pH 7.56 H (7.32-7.43) VBG pCO2 25 mmHg VBG pO2 55 mmHg VBG HCO3 22 (22-26) mmol/L VBG O2 Saturation 88.0 % VBG Base Excess 2.4 mmol/L Sodium (135-145) mmol/L Potassium (3.3-5.1) mmol/L Chloride (96-108) mmol/L Carbon Dioxide (22-29) mmol/L Anion Gap (12-20) BUN (9-16) mg/dL Creatinine (0.5-1.4) mg/dL Estim Creat Clear Calc Estimated GFR Random Glucose (60-115) mg/dL Lactic Acid (0.5-2.0) mmol/L Calcium (8.4-10.2) mg/dL Magnesium (1.6-2.6) mg/dL Total Bilirubin (0.0-1.0) mg/dL Direct Bilirubin (0.0-0.5) mg/dL AST (5-31) U/L ALT (0-31) U/L Alkaline Phosphatase (39-117) U/L Troponin I High Sens 142.4 H* (<3.5-17.0) ng/L B-Natriuretic Peptide (<100) pg/mL Total Protein (6.5-8.0) g/dL Albumin (3.5-5.0) g/dL Urine Color YELLOW Urine Appearance CLEAR Urine pH 6.0 (5.0-8.0) Ur Specific [place] 1.010 (1.005-1.025) Urine Protein TRACE (NEG-TRACE) MG/DL Urine Glucose (UA) NEG (NEG) MG/DL Urine Ketones 15 (NEG) MG/DL Urine Blood TRACE (NEG) Urine Nitrite NEG (NEG) Ur Leukocyte Esterase NEG (NEG) Urine RBC 1-4 (0) /HPF Urine WBC 1-4 (0-4) /HPF Ur Squamous Epith Cells 1+ /LPF Urine Bacteria 1+ /LPF COVID-19 ([facility]) (Negative) COVID-19 Clin Com Discharge Plan Discharge Clinical Impression: DVT (deep venous thrombosis), COPD (chronic obstructive pulmonary disease), Leukocytosis, Elevated troponin Patient Disposition: Admitted As Inpatient Instructions: Apixaban (By mouth), Deep Vein Thrombosis (ED), COPD (Chronic Obstructive Pulmonary Disease) (ED), Deep Vein Thrombosis Prevention (ED) Additional Instructions: 1. Resume all home medications as prescribed. 2. Follow-up with your primary care provider today for re-evaluation and further outpatient management. 3. The remaining medication that you need for the clot in your left leg has been sent to the pharmacy and is already known to be approved by your insurance. You will need to follow-up with your primary care provider so that you can get the remaining course of blood thinners for the clot in your leg. Prescriptions: No Action clonazepam 1 mg tablet 1 mg PO BEDTIME PRN (Reason: Insomnia) RF: 0 cyanocobalamin (vitamin B-12) 1,000 mcg tablet 1,000 mcg PO DAILY RF: 0 calcium carbonate-vitamin D3 600 mg(1,500mg) -200 unit tablet 1 tab PO DAILY RF: 0 omeprazole 40 mg capsule,delayed release(DR/EC) 40 mg PO DAILY RF: 0 methotrexate sodium 2.5 mg tablet 10 mg PO SA RF: 0 docusate sodium 100 mg capsule 100 mg PO BID RF: 0 folic acid 1 mg tablet 1 mg PO BID RF: 0 gabapentin 100 mg capsule 200 mg PO BEDTIME RF: 0 ferrous sulfate 325 mg (65 mg iron) tablet,delayed release (DR/EC) 325 mg PO BID RF: 0 oxycodone 5 mg tablet 5 mg PO TID PRN (Reason: Pain) RF: 0 Linzess 145 mcg capsule 145 mcg PO DAILY RF: 0 Anoro Ellipta 62.5-25 mcg/actuation Blister With Device 1 inh INHALATION DAILY RF: 0 Combivent Respimat 20-100 mcg/actuation Mist 1 puff INHALATION Q6H PRN (Reason: Wheezing) RF: 0 albuterol sulfate [Ventolin HFA] 90 mcg/actuation HFA aerosol inhaler 2 puff inhalation Q4H PRN (Reason: Wheezing) RF: 0 Stand Alone Forms: Against Medical Advice
--- NOTE | 2021-03-31 12:50 | PC.NURSE ---
pt up walking around in her room, reports feeling much better, denies pain at this time pt is agreeing to stay at the hospital
--- NOTE | 2021-03-31 14:00 | PM.IMHP ---
History of Present Illness Date of Service: 03/31/21 Chief Complaint: leg pain This is a 75-year-old female with a past medical history of prior DVT on Eliquis which was discontinued about a week ago, COPD and chronic respiratory failure with hypoxia on 3 L at baseline,, chronic back pain for which she is on oxycodone who presents to the hospital for the 2nd time in the last 2 weeks. She reports that she presented to the hospital because she has ?a clot in her left leg. She reports that she was diagnosed with a DVT in the same leg earlier this year and was treated with Eliquis for several months but about 1 week prior to she was taken off the Eliquis. She also reports chronic shortness of breath and thinks maybe her breathing is slightly worse than her baseline. Patients CT chest showed RLL findings. When questioned about dysphgia, she reports that she was told in the past that she may have aspirated (by per PCP) In the ED she found to have a LLE DVT. PE was ruled out with a negative CTA but this did show severe emphysema and a right lower lobe infiltrate. She was given multiple rounds of up updrafts and systemic steroids. She was given a dose of Lovenox for her DVT she was given antibiotics for possible pneumonia. Initially the patient was going to sign out against medical advice but ultimately decided to stay for treatment. Review of Systems Review of Systems: General - denies fevers or chills, denies weakness or fatigue HEENT -denies blurred vision, denies headache, denies sore throat Cardiovascular - denies chest pain or palpitations, denies edema, Respiratory - +cough, slightly worse from baseline, SOB slightly worse from baseline Gastrointestinal - denies abdominal pain, nausea, vomiting, diarrhea - denies flank pain, denies dysuria, denies frequency or urgency Musculoskeletal - denies back pain, denies hip pain, denies knee pain, denies shoulder pain; LLE pain Neurological - denies any focal weakness or numbness; Skin, denies any bruising or redness Psychiatric - denies any suicidal ideation, hallucinations, homicidal ideation Endocrinology - denies intolerance to hot / cold temperatures [facility] Medical History (Updated 03/31/21 @ 14:32 by Alireza Ramirez MD) Chronic respiratory failure with hypoxia Compression fracture of T9 vertebra DVT (deep venous thrombosis) Hiatal hernia History of diverticulitis History of treatment for tuberculosis Left rib fracture Opioid abuse Rash Rib pain on left side Rib pain on right side Pertinent family history: Patient does not know Surgical History H/O colonoscopy H/O esophagogastroduodenoscopy Social History (Updated 03/31/21 @ 14:16 by Alireza Ramirez MD) Alcohol intake: former Year quit: 1989 Patient Tobacco Use Status: Current everyday Tobacco user Cigarettes Per Day: 2 Use of substances other than those prescribed or required for medical reasons: No Advance Directives: No Advance Directives Information Provided: No Meds Allergies Allergy/AdvReac Type Severity Reaction Status Date / Time loratadine [From CLARITIN] Allergy Unknown MOUTH SORE Verified 03/30/21 10:53 Active Medications: Current Medications Acetaminophen (Acetaminophen 325 Mg Tablet) 650 mg PO Q6H PRN PRN Reason: Pain, Mild (Pain Scale 1-3) Albuterol/Ipratropium (Albuterol/Iprat 2.5/0.5mg 3 Ml Ampul.Neb) 3 ml INHALE RQ4H WHILE AWAKE [facility] Albuterol/Ipratropium (Albuterol/Iprat 2.5/0.5mg 3 Ml Ampul.Neb) 3 ml INHALE RQ4H PRN PRN Reason: Shortness of Breath/Wheezing Apixaban (Apixaban 5 Mg Tablet) 10 mg PO BID LACEY Stop: 04/07/21 09:01 Clonazepam (Clonazepam 1 Mg Tablet) 1 mg PO BEDTIME PRN PRN Reason: Insomnia Ampicillin Sodium/Sulbactam (Sodium 1.5 gm/ Sodium Chloride) 100 mls @ 200 mls/hr IV Q6H [facility] Methylprednisolone Sodium Succinate (Methylprednisolone Sod Succ 40 Mg/Ml Vial) 40 mg IVPUSH Q12H [facility] Ondansetron HCl (Ondansetron Hcl 4 Mg/2 Ml Vial) 4 mg IVPUSH Q8H PRN PRN Reason: Nausea and Vomiting Pharmacy Consult (Consult Rx Perform Med Rec) 1 each MISCELLANE ONCE PRN PRN Reason: Consult order Sodium Chloride (0.9 % Sodium Chloride Flush 3 Ml Syringe) 3 ml IVFLUSH QSHIFT [facility] Home Medications Medication Instructions Recorded Confirmed Last Taken Type albuterol sulfate 90 mcg/actuation 2 puff INHALATION Q4H PRN 03/31/21 03/31/21 Unknown History aerosol inhaler (Ventolin HFA) calcium carbonate 600 mg (1,500 1 tab PO DAILY 03/31/21 03/31/21 03/30/21 History mg)-vitamin D3 200 unit tablet clonazepam 1 mg tablet 1 mg PO BEDTIME PRN 03/31/21 03/31/21 Unknown History cyanocobalamin (vitamin B-12) 1,000 mcg PO DAILY 03/31/21 03/31/21 03/30/21 History 1,000 mcg tablet docusate sodium 100 mg capsule 100 mg PO BID 03/31/21 03/31/21 03/30/21 History ferrous sulfate 325 mg (65 mg 325 mg PO BID 03/31/21 03/31/21 03/30/21 History iron) tablet,delayed release folic acid 1 mg tablet 1 mg PO BID 03/31/21 03/31/21 03/30/21 History gabapentin 100 mg capsule 200 mg PO BEDTIME 03/31/21 03/31/21 03/30/21 History ipratropium 20 mcg-albuterol 100 1 puff INHALATION Q6H PRN 03/31/21 03/31/21 Unknown History mcg/actuation mist for inhalation (Combivent Respimat) linaclotide 145 mcg capsule 145 mcg PO DAILY 03/31/21 03/31/21 03/30/21 History (Linzess) methotrexate sodium 2.5 mg tablet 10 mg PO SA 03/31/21 03/31/21 03/30/21 History omeprazole 40 mg capsule,delayed 40 mg PO DAILY 03/31/21 03/31/21 03/30/21 History release oxycodone 5 mg tablet 5 mg PO TID PRN 03/31/21 03/31/21 03/30/21 History umeclidinium 62.5 mcg-vilanterol 1 inh INHALATION DAILY 03/31/21 03/31/21 03/30/21 History 25 mcg/actuation powdr for inhalation (Anoro Ellipta) Physical Exam Vital Signs and Narrative: Vital Signs: Last Vital Signs Temp 97.9 F 03/31/21 02:19 Pulse 108 H 03/31/21 09:09 Resp 16 03/31/21 12:48 BP 133/50 L 03/31/21 12:48 Pulse Ox 90 L 03/31/21 12:52 Oxygen Flow Rate 3 03/30/21 23:17 Body Mass Index 19.5 Const: Other: Constitutional - Awake and Alert, In distress with minimal exertion Eyes - PERRLA, EOMI Cardiovascular - S1S2, Tachycardic around 105 Respiratory - Rales at R base, scattered rhonchi, saturations 88-90% on 5L Gastrointestinal - NT / ND; +BS; No rebound or guarding - No CVA tenderness Extremities - LLE swelling and erythema; Musculoskeletal - Normal inspection, normal ROM Skin - Warm/Dry Neurological - Alert & oriented x3, No focal deficit Psychological - Appropriate affect Results Labs CBC and Chem 7: 03/30/21 23:29 03/30/21 23:29 Labs: Laboratory Results - last 24 hr 03/30/21 03/30/21 03/30/21 23:29 23:29 23:29 MCV 76.8 L MCH 22.7 L MCHC 29.5 L RDW 23.1 H Plt Count 302 MPV 9.9 Immature Gran % (Auto) 0.6 H Neut % (Auto) 83.3 H Lymph % (Auto) 5.1 L [place] % (Auto) 10.1 Eos % (Auto) 0.5 Baso % (Auto) 0.4 Lymph # (Auto) 0.8 L [place] # (Auto) 1.6 H Eos # (Auto) 0.1 Baso # (Auto) 0.1 Abs Immat Gran (auto) 0.10 H Absolute Neuts (auto) 13.5 H Absolute Nucleated RBC 0.000 Nucleated RBC % (auto) 0.0 Smear Tech's Comments VERIFIED PT INR APTT VBG pH VBG pCO2 VBG pO2 VBG HCO3 VBG O2 Saturation VBG Base Excess Anion Gap 16 Estim Creat Clear Calc 62.1 Estimated GFR > 60 Random Glucose 121 H Lactic Acid Calcium 9.7 Magnesium 2.0 Total Bilirubin 1.0 Direct Bilirubin 0.3 AST 15 ALT 9 Alkaline Phosphatase 129 H Troponin I High Sens 182.5 H* D B-Natriuretic Peptide 100 Total Protein 6.6 Albumin 3.7 Urine Color Urine Appearance Urine pH Ur Specific [place] Urine Protein Urine Glucose (UA) Urine Ketones Urine Blood Urine Nitrite Ur Leukocyte Esterase Urine RBC Urine WBC Ur Squamous Epith Cells Urine Bacteria COVID-19 ([facility]) COVID-19 Clin Com 03/30/21 03/30/21 03/31/21 23:29 23:29 00:18 MCV MCH MCHC RDW Plt Count MPV Immature Gran % (Auto) Neut % (Auto) Lymph % (Auto) [place] % (Auto) Eos % (Auto) Baso % (Auto) Lymph # (Auto) [place] # (Auto) Eos # (Auto) Baso # (Auto) Abs Immat Gran (auto) Absolute Neuts (auto) Absolute Nucleated RBC Nucleated RBC % (auto) Smear Tech's Comments PT 15.9 H INR 1.4 H APTT 30.2 VBG pH VBG pCO2 VBG pO2 VBG HCO3 VBG O2 Saturation VBG Base Excess Anion Gap Estim Creat Clear Calc Estimated GFR Random Glucose Lactic Acid 1.4 Calcium Magnesium Total Bilirubin Direct Bilirubin AST ALT Alkaline Phosphatase Troponin I High Sens B-Natriuretic Peptide Total Protein Albumin Urine Color Urine Appearance Urine pH Ur Specific [place] Urine Protein Urine Glucose (UA) Urine Ketones Urine Blood Urine Nitrite Ur Leukocyte Esterase Urine RBC Urine WBC Ur Squamous Epith Cells Urine Bacteria COVID-19 ([facility]) Negative COVID-19 Clin Com See Note 03/31/21 03/31/21 03/31/21 00:22 02:29 04:02 MCV MCH MCHC RDW Plt Count MPV Immature Gran % (Auto) Neut % (Auto) Lymph % (Auto) [place] % (Auto) Eos % (Auto) Baso % (Auto) Lymph # (Auto) [place] # (Auto) Eos # (Auto) Baso # (Auto) Abs Immat Gran (auto) Absolute Neuts (auto) Absolute Nucleated RBC Nucleated RBC % (auto) Smear Tech's Comments PT INR APTT VBG pH 7.56 H VBG pCO2 25 VBG pO2 55 VBG HCO3 22 VBG O2 Saturation 88.0 VBG Base Excess 2.4 Anion Gap Estim Creat Clear Calc Estimated GFR Random Glucose Lactic Acid Calcium Magnesium Total Bilirubin Direct Bilirubin AST ALT Alkaline Phosphatase Troponin I High Sens 142.4 H* B-Natriuretic Peptide Total Protein Albumin Urine Color YELLOW Urine Appearance CLEAR Urine pH 6.0 Ur Specific [place] 1.010 Urine Protein TRACE Urine Glucose (UA) NEG Urine Ketones 15 Urine Blood TRACE Urine Nitrite NEG Ur Leukocyte Esterase NEG Urine RBC 1-4 Urine WBC 1-4 Ur Squamous Epith Cells 1+ Urine Bacteria 1+ COVID-19 ([facility]) COVID-19 Clin Com Imaging Radiologist's Impressions: Impressions Chest CTA 03/31/21 00:02 IMPRESSION: * No pulmonary embolism. * No aortic aneurysm or dissection. * Severe emphysema. * Improved aeration within right lower lobe, with mild persistent bronchial wall thickening in the right lower lobe and scattered endobronchial secretions/tree in bud nodularity peripherally. * Mild lower lung subsegmental atelectasis. * Large hiatal hernia. VTE: negative Abdomen/Pelvis CT 03/31/21 04:56 IMPRESSION: No acute findings within the abdomen or pelvis to explain the patient's symptomatology. Chronic findings as above. Assessment and Plan (1) Sepsis: Status: Acute This is a 75-year-old female with a past medical history of prior DVT on anticoagulation which was discontinued recently and now she presents with complaints of left lower extremity pain. She has been diagnosed with a DVT of the lower extremity. She was also found to be in respiratory distress with hypoxia on her baseline 3 L. she is negative for a PE but does have severe emphysema as well as likely right lower lobe pneumonia from aspiration. 1. Acute on chronic respiratory failure with hypoxia Multifactorial, see details below Saturations as low as 78 in the emergency room while on oxygen. Required a Ventimask but now has been transitioned to 5 L nasal cannula and is saturating 88-90. Titrate oxygen to keep saturation 88-92. Do not over oxygenate. 2. COPD exacerbation IV Solu-Medrol Scheduled+ PRN DuoNebs Patient reports he continues to smoke 1-2 cigarettes daily. She has been encouraged complete cessation. 3. Sepsis (no severe features) due to Right lower lobe pneumonia Suspected due to aspiration Will start IV Unasyn Follow cultures Meets sepsis criteria with Tachycardia, tachypnea, leukocytosis and bandemia. 4. LLE DVT, unprovked Given Lovenox ED x 2 in the ED will restart Eliquis -- will need loading again given shes been off >1 week. 10mg bid x7 days, then 5mg bid. Given second DVT -- likely needs life long anticoagulation. 5. Hiatial hernia / GERD PPI 6. Chronic back pain Continue her oxycodone / gabapentin 7. Elevated HS Trop-I downtrending likely demand ischemia from hypoxia / sepsis will repeat EKG She does not have any chest pain Full Code DVT pptx -- On Eliquis for treatment Reports her friend Vicky is HCP Quality Stroke Does the patient have a stroke diagnosis?: No VTE Prior VTE?: No VTE Risk Level:: Medical - moderate - high VTE Device Contraindication: Treatment Not Indicated VTE Drug Contraindication: Treatment Not Indicated
[2021-03-31] MEDS: Ampicillin Sodium/Sulbactam Na 1.5 GM in 0.9 % Sodium Chloride 100 ML IV ×2 (15:35→21:58)
[2021-03-31] MEDS: Albuterol/Iprat 2.5/0.5MG 3 ML AMPUL.NEB INHALE ×2 (15:42→19:38)
[2021-03-31] MEDS: 0.9 % Sodium Chloride Flush 3 ML SYRINGE IVFLUSH (15:44)
--- NOTE | 2021-03-31 18:44 | PC.NURSE ---
patient standing at side of bed c/o 10/10 leg pain. A+ox4. Asked to sit down. SpO2 6L NC t 80%. and BP 88/53. Placed on 10L nonrebreather. spO2 93%
--- NOTE | 2021-03-31 18:50 | PC.NURSE ---
patient refusing to keep nonrebreather on and is wearing 6L NC and only wants to wear that. Refusing all other o2 methods. Provider made aware.
[2021-03-31] MEDS: Apixaban 5 MG TABLET 10 MG PO (20:10)
[2021-03-31] MEDS: Gabapentin 100 MG CAPSULE 200 MG PO (20:10)
[2021-03-31] MEDS: methylPREDNISolone Sod Succ 40 MG/ML VIAL IVPUSH (20:10)
[2021-03-31] MEDS: Folic Acid 1 MG TABLET PO (20:11)
[2021-03-31] MEDS: clonazePAM 1 MG TABLET PO (20:11)
[2021-03-31] MEDS: Docusate Sodium 100 MG CAPSULE PO (20:11)
[2021-03-31] MEDS: Ferrous Sulfate 324 MG TABLET.DR PO (20:11)
[2021-04-01] VITALS (8 sets, daily range): BP systolic 88–130; BP diastolic 45–72; PULSE 77–96; RESP 19–27; TEMP 36.7; O2SAT 90–94
[2021-04-01] MEDS: Ampicillin Sodium/Sulbactam Na 1.5 GM in 0.9 % Sodium Chloride 100 ML IV ×2 (01:06→08:10)
[2021-04-01] MEDS: oxyCODONE HCl Immed Release 5 MG TABLET PO (04:57)
[2021-04-01] MEDS: methylPREDNISolone Sod Succ 40 MG/ML VIAL IVPUSH (04:57)
[2021-04-01 06:22] LABS: MANUAL DIFF FLAG NO
[2021-04-01 06:25] LABS: Basophils Percent Auto 0.3 % (0-2); Eosinophils Absolute Auto 0.1 X10*3/uL (0.0-0.4); Hematocrit 32.8 % (37-47); Hemoglobin 9.6 g/dl (12.0-16.0); Imm Gran Abs Auto 0.06 X10*3/uL (0.00-0.03); Imm Gran Pct Auto 0.5 % (0.0-0.4); Lymphocytes Absolute Auto 0.8 X10*3/uL (1.2-4.9); Lymphocytes Percent Auto 6.8 % (20-40); Mean Corpuscular HGB Conc 29.3 g/dl (31.0-35.0); Mean Corpuscular Hemoglobin 22.5 pg (27.0-33.0); Mean Platelet Volume 10.3 fL (9.4-12.3); Monocytes Absolute Auto 1.4 X10*3/uL (0.1-1.2); Neutrophils Absolute Auto 9.9 X10*3/uL (2.0-8.3); Neutrophils Percent Auto 80.4 % (45-73); Platelet Count 364 X10*3/uL (160-400); Red Blood Count 4.26 X10*6/uL (4.20-5.50); Red Cell Distribution Width 22.6 % (11.0-16.0); White Blood Count 12.4 X10*3/uL (4.8-10.8)
[2021-04-01 07:00] LABS: Anion Gap 14 (12-20); Blood Urea Nitrogen 11 mg/dL (9-16); Calcium 8.7 mg/dL (8.4-10.2); Carbon Dioxide 24 mmol/L (22-29); Chloride 106 mmol/L (96-108); Creatinine Clr Calc Pharmacy 66.6; Estimated Glomerular Filt Rate > 60; Glucose Random 70 mg/dL (60-115); Potassium 3.2 mmol/L (3.3-5.1); Sodium 141 mmol/L (135-145)
[2021-04-01] MEDS: Albuterol/Iprat 2.5/0.5MG 3 ML AMPUL.NEB INHALE ×2 (07:35→11:15)
--- NOTE | 2021-04-01 07:35 | PC.NURSE ---
Assumed care of patient. Pt is sitting up on the edge of the bed, eating breakfast and is tolerating PO intake well. Pt is on oxygen via NC at 12lpm. Respiratory is now at the bedside for scheduled neb treatment.
[2021-04-01] MEDS: Folic Acid 1 MG TABLET PO (08:11)
[2021-04-01] MEDS: Cyanocobalamin (Vitamin B-12) 1,000 MCG TABLET 1000 MCG PO (08:11)
[2021-04-01] MEDS: Ferrous Sulfate 324 MG TABLET.DR PO (08:11)
[2021-04-01] MEDS: Omeprazole 40 MG CAPSULE.DR PO (08:11)
[2021-04-01] MEDS: Docusate Sodium 100 MG CAPSULE PO (08:11)
[2021-04-01] MEDS: Apixaban 5 MG TABLET 10 MG PO (10:39)
[2021-04-01] MEDS: Potassium Chloride ER 20 MEQ TAB.ER.PRT 40 MEQ PO (10:39)
--- NOTE | 2021-04-01 12:56 | PC.NURSE ---
call placed for report, rn to call back
--- NOTE | 2021-04-01 13:25 | PC.NURSE ---
Pt states that she wants to go home and is adamant about not being admitted. Provider made aware and pt will be discharged and case management ot book ambulance ride home. Pt is on oxygen via NC at 6lpm at this time.
--- NOTE | 2021-04-01 13:28 | P.DS_ITS ---
DS: Providers Provider Date of Service: 04/01/21 <Jovanna Correa NP - Last Filed: 04/01/21 13:41> Date of admission: 03/31/21 13:38 <Jovanna Correa NP - Last Filed: 04/01/21 13:41> Primary care physician: Unknown Physician <Jovanna Correa NP - Last Filed: 04/01/21 13:41> Attending physician on discharge: Akira Mlapah <Jovanna Correa NP - Last Filed: 04/01/21 13:41> Discharging clinician: Jovanna Correa <Jovanna Correa NP - Last Filed: 04/01/21 13:41> DS: Diagnosis Discharge Diagnosis (1) Sepsis: Status: Resolved <Jovanna Correa NP - Last Filed: 04/01/21 13:41> (2) Aspiration pneumonia: Status: Acute <Jovanna Correa NP - Last Filed: 04/01/21 13:41> (3) DVT (deep venous thrombosis): Status: Acute <Jovanna Correa NP - Last Filed: 04/01/21 13:41> DS: Summary Hospital Course Hospital Course: HP as per admitting provider This is a 75-year-old female with a past medical history of prior DVT on Eliquis which was discontinued about a week ago, COPD and chronic respiratory failure with hypoxia on 3 L at baseline,, chronic back pain for which she is on oxycodone who presents to the hospital for the 2nd time in the last 2 weeks.? She reports that she presented to the hospital because she has ?a clot in her left leg.? She reports that she was diagnosed with a DVT in the same leg earlier this year and was treated with Eliquis for several months but about 1 week prior to she was taken off the Eliquis.? She also reports chronic shortness of breath and thinks maybe her breathing is slightly worse than her baseline. Patients CT chest showed RLL findings. When questioned about dysphgia, she? reports that she was told in the past that she may have aspirated (by per PCP) In the ED she found to have a LLE DVT. PE was ruled out with a negative CTA but this did show severe emphysema and a right lower lobe infiltrate.? She was given multiple rounds of up updrafts and systemic steroids.? She was given a dose of Lovenox for her DVT she was given antibiotics for possible pneumonia.? Initially the patient was going to sign out against medical advice but ultimately decided to stay for treatment . 1. Acute on chronic respiratory failure with hypoxia secondary to COPD and aspiration Saturations as low as 78 in the emergency room while on oxygen.? Required a Ventimask but now has been transitioned to 5 L nasal cannula and is saturating 88-90. Titrate oxygen to keep saturation 88-92.?She will return home with her usual home oxygen dose. 2. COPD exacerbation Treated with IV Solu-Medrol Scheduled+ PRN DuoNebs Patient reports she continues to smoke 1-2 cigarettes daily.? She has been encouraged complete cessation. Short taper of prednisone 3. Sepsis (no severe features) due to Right lower lobe pneumonia Suspected due to aspiration Treated with Unasyn while inpatient blood cx negative after 24 hours 4. LLE DVT, unprovked. Given Lovenox ED x 2 in the ED. Restarted Eliquis, will need loading again given shes been off >1 week. 10mg bid x7 days, then 5mg bid. Given second DVT -- likely needs life long anticoagulation. <Jovanna Correa NP - Last Filed: 04/01/21 13:41> Time Spent with Patient Time attestation: Total time spent providing and/or coordinating discharge services: <Jovanna Correa NP - Last Filed: 04/01/21 13:41> Discharge coordination time: Greater than 30 minutes <Jovanna Correa NP - Last Filed: 04/01/21 13:41> Quality: Stroke Does the patient have a stroke diagnosis?: No <Jovanna Correa NP - Last Filed: 04/01/21 13:41> Physical Exam Vital Signs: Vital Signs: Last Vital Signs Temp 98.1 F 04/01/21 13:19 Pulse 96 04/01/21 13:19 Resp 22 H 04/01/21 13:19 BP 130/64 04/01/21 13:19 Pulse Ox 90 L 04/01/21 13:19 Oxygen Flow Rate 3 03/30/21 23:17 Body Mass Index 19.5 <Jovanna Correa NP - Last Filed: 04/01/21 13:41> Appearing in no acute distress head is normocephalic atraumatic eyes pupils are PERRLA sclera is anicteric mouth throat mucous membranes are intact and moist neck is supple no lymphadenopathy, no JVD noted lung sounds are clear to auscultation heart regular rate rhythm, clear S1, S2 positive bowel sounds, abdomen is soft, nontender neuro patient is alert x3, no focal deficits <Jovanna Correa NP - Last Filed: 04/01/21 13:41> DS: Data Data Completed and Pending Labs on day of discharge: Laboratory Results - last 24 hr 04/01/21 04/01/21 05:48 05:48 WBC 12.4 H RBC 4.26 Hgb 9.6 L Hct 32.8 L MCV 77.0 L MCH 22.5 L MCHC 29.3 L RDW 22.6 H Plt Count 364 MPV 10.3 Immature Gran % (Auto) 0.5 H Neut % (Auto) 80.4 H Lymph % (Auto) 6.8 L [place] % (Auto) 11.0 Eos % (Auto) 1.0 Baso % (Auto) 0.3 Lymph # (Auto) 0.8 L [place] # (Auto) 1.4 H Eos # (Auto) 0.1 Baso # (Auto) 0.0 Abs Immat Gran (auto) 0.06 H Absolute Neuts (auto) 9.9 H Absolute Nucleated RBC 0.000 Nucleated RBC % (auto) 0.0 Sodium 141 Potassium 3.2 L Chloride 106 Carbon Dioxide 24 Anion Gap 14 BUN 11 Creatinine 0.63 Estim Creat Clear Calc 66.6 Estimated GFR > 60 Random Glucose 70 Calcium 8.7 D Preliminary micro results at discharge 03/31/21 00:24 Blood Culture - Preliminary Blood - Venous No growth after 24 hours. 03/31/21 00:18 Blood Culture - Preliminary Blood - Venous No growth after 24 hours. <Jovanna Correa NP - Last Filed: 04/01/21 13:41> Discharge Plan Discharge Anticipated Discharge Date/Time: 04/01/21 13:15 <Jovanna Correa NP - Last Filed: 04/01/21 13:41> Patient Disposition: Left Against Medical Advice <Jovanna Correa NP - Last Filed: 04/01/21 13:41> Discharge Diagnosis: Aspiration pneumonia DVT <Jovanna Correa NP - Last Filed: 04/01/21 13:41> Aspiration pneumonia DVT <Akira James MD - Last Filed: 04/10/21 16:07> Referrals: Carlos Alberto Rodriges [Primary Care Provider] - 1 Week <Jovanna Correa NP - Last Filed: 04/01/21 13:41> Discharge Medications: New amoxicillin-pot clavulanate [Augmentin] 875-125 mg tablet 1 tab PO Q12H Qty: 16 RF: 0 prednisone 10 mg tablet 40 mg PO DAILY Qty: 16 RF: 0 Eliquis 5 mg Tablet 5 mg PO BID Qty: 72 RF: 0 Continued clonazepam 1 mg tablet 1 mg PO BEDTIME PRN (Reason: Insomnia) RF: 0 cyanocobalamin (vitamin B-12) 1,000 mcg tablet 1,000 mcg PO DAILY RF: 0 calcium carbonate-vitamin D3 600 mg(1,500mg) -200 unit tablet 1 tab PO DAILY RF: 0 omeprazole 40 mg capsule,delayed release(DR/EC) 40 mg PO DAILY RF: 0 methotrexate sodium 2.5 mg tablet 10 mg PO SA RF: 0 docusate sodium 100 mg capsule 100 mg PO BID RF: 0 folic acid 1 mg tablet 1 mg PO BID RF: 0 gabapentin 100 mg capsule 200 mg PO BEDTIME RF: 0 ferrous sulfate 325 mg (65 mg iron) tablet,delayed release (DR/EC) 325 mg PO BID RF: 0 oxycodone 5 mg tablet 5 mg PO TID PRN (Reason: Pain) RF: 0 Linzess 145 mcg capsule 145 mcg PO DAILY RF: 0 Anoro Ellipta 62.5-25 mcg/actuation Blister With Device 1 inh INHALATION DAILY RF: 0 Combivent Respimat 20-100 mcg/actuation Mist 1 puff INHALATION Q6H PRN (Reason: Wheezing) RF: 0 albuterol sulfate [Ventolin HFA] 90 mcg/actuation HFA aerosol inhaler 2 puff inhalation Q4H PRN (Reason: Wheezing) RF: 0 <Jovanna Correa NP - Last Filed: 04/01/21 13:41> Discharge Orders: Discharge Order (Routine); Ordered 04/01/21 Ordered By: Jovanna Correa <Jovanna Correa NP - Last Filed: 04/01/21 13:41> Diet: advance to usual diet <Jovanna Correa NP - Last Filed: 04/01/21 13:41> advance to usual diet <Akira James MD - Last Filed: 04/10/21 16:07> Activity on Discharge: As tolerated <Jovanna Correa NP - Last Filed: 04/01/21 13:41> As tolerated <Akira James MD - Last Filed: 04/10/21 16:07> Stand Alone Forms: Patient Portal Discharge page, Against Medical Advice <Jovanna Correa NP - Last Filed: 04/01/21 13:41> Care Plan Goals: Take medications as prescribed <Jovanna Correa NP - Last Filed: 04/01/21 13:41> Health Concerns: Aspiration pneumonia DVT <Jovanna Correa NP - Last Filed: 04/01/21 13:41> Plan of Treatment: 1. Resume all home medications as prescribed. 2. Follow-up with your primary care provider today for re-evaluation and further outpatient management. 3. The remaining medication that you need for the clot in your left leg has been sent to the pharmacy and is already known to be approved by your insurance. You will need to follow-up with your primary care provider so that you can get the remaining course of blood thinners for the clot in your leg. <Jovanna Correa NP - Last Filed: 04/01/21 13:41> Assessment: See discharge summary I saw and examine patient and discussed physical finding, labs, medication and studies with MARKET DEVELOPMENT DIRECTOR and I agree with plan and disposition as above. --Gena James MD <Jovanna Correa NP - Last Filed: 04/01/21 13:41> Patient Instructions: Apixaban (By mouth), Deep Vein Thrombosis (ED), COPD (Chronic Obstructive Pulmonary Disease) (ED), Deep Vein Thrombosis Prevention (ED) <Jovanna Correa NP - Last Filed: 04/01/21 13:41> Discharge Date/Time: 04/01/21 15:07 <Jovanna Correa NP - Last Filed: 04/01/21 13:41>
--- NOTE | 2021-04-01 13:47 | MHC.CM.PN ---
Met with patient in regardes to d/c planning. Patient lives alone, ambulates with a cane, has a [employer] through [facility] and has oxygen. Patient does not know the name of her oxygen company. Patient's PCP is Dr Rodriges. Patient received 2 Covid vaccines. IMM explained and signed. Patient has a HCP and will attempt to obtain a copy. [facility] with oxygen will be needed when patient is medically stable. Continue to monitor for d/c needs.
== END 2021-04-01 15:07 | disposition left against medical advice (07) | DRG 871 ==
LOC: HO.ED 03-31 12:55 → HO.EDOVER 03-31 14:04 → HO.IMC 04-01 12:34 → HO.EDOVER 04-01 13:21
PROVIDERS: Emergency Medicine; Student in an Organized Health Care Education/Training Program; Admitting Provider Family Medicine; Emergency Provider Emergency Medicine; PCP Hospitalist; Visit Provider Nurse Practitioner Acute Care
DX: A41.9 Sepsis, unspecified organism (principal); J96.21 Acute and chronic respiratory failure with hypoxia; J69.0 Pneumonitis due to inhalation of food and vomit; I82.432 Acute embolism and thrombosis of left popliteal vein; J44.1 Chronic obstructive pulmonary disease with (acute) exacerbation; G89.29 Other chronic pain; F17.210 Nicotine dependence, cigarettes, uncomplicated; K21.9 Gastro-esophageal reflux disease without esophagitis; K44.9 Diaphragmatic hernia without obstruction or gangrene; D72.829 Elevated white blood cell count, unspecified; Z71.6 Tobacco abuse counseling; Z20.822 Contact with and (suspected) exposure to COVID-19; Z79.01 Long term (current) use of anticoagulants; Z79.891 Long term (current) use of opiate analgesic; Z79.899 Other long term (current) drug therapy
CPT/HCPCS: 36415; 71275; 74177; 80048; 80076; 81001; 82803; 83605; 83735; 83880; 84484; 85025; 85610; 85730; 87040; 87635; 93005; 94640; 99285; J0295; J0696; J1650; J2920; J2930; J3010; Q9967

== ENCOUNTER → 2021-04-11 14:29 | Outpatient (BNVA) | payer MEDICARE, SELFPAY | PROVIDERS: PCP Hospitalist; Referring Provider Hospitalist; Visit Provider Nurse Practitioner | DX: K59.04 Chronic idiopathic constipation (principal) | CPT/HCPCS: 99202 ==

== ENCOUNTER → 2021-05-05 14:43 | Outpatient (BNVA) | payer MEDICARE, SELFPAY | PROVIDERS: PCP Hospitalist; Referring Provider Hospitalist; Visit Provider Nurse Practitioner | DX: K59.04 Chronic idiopathic constipation (principal); K62.3 Rectal prolapse | CPT/HCPCS: 99212 ==

== ENCOUNTER 2021-05-18 06:59 | Inpatient (IN) | payer MEDICARE, SELFPAY ==
[2021-05-18] VITALS (11 sets, daily range): BP systolic 105–134; BP diastolic 60–102; PULSE 65–104; RESP 14–22; TEMP 36.8; O2SAT 76–100; BMI 25.4; BMI 24.5
--- NOTE | ~2021-05-18 | XR_ITS ---
EXAMINATION: XR CHEST CLINICAL INFORMATION: COPD/pneumonia/hypoxia COMPARISON: Chest radiograph 05/18/2021 TECHNIQUE: Frontal view of the chest was obtained. FINDINGS: There are increasing bibasilar airspace opacities, right greater than left, and probable small amount of pleural fluid on the right. Calcified nodules and interstitial prominence are similar to the prior study with regions of probable airways inflammation bilaterally. The cardiomediastinal contours are similar to the prior and note is again made of a large hiatal hernia. Structures of the chest wall are unchanged. XR/XR chest 1V IMPRESSION: Increasing bibasilar opacities, right greater than left, with probable small amount of pleural fluid, and regions of bilateral airways inflammation.
--- NOTE | ~2021-05-18 | XR_ITS ---
EXAMINATION: XR CHEST CLINICAL INFORMATION: SOB COMPARISON: CT a chest 03/31/2021 TECHNIQUE: Frontal view of the chest was obtained. FINDINGS: There is centrilobular emphysema with a calcified nodule left upper lobe. There are several calcified nodules as well as the left upper lobe. Increased interstitial markings are seen in both lung bases and right middle lobe. There is moderate to large hiatal hernia. Pulmonary vascularity is normal. There are acute compression fractures T4 and T6 vertebra with loss of superior endplate height by 20%. There are old compression fractures with cement augmentation T9, T12 and L2 vertebra. Old deformities of T8 and T11 vertebra are stable. XR/XR chest 1V IMPRESSION: Calcified nodule left upper lobe with smaller nodular calcifications in the left upper lobe. Increased reticular interstitial changes in both lower lobes and right midlung. There is a moderate to large hiatal hernia. Acute compression fractures T4 and T6 vertebra. Further treatment with kyphoplasty can be performed if clinically deemed necessary. There are old compression fractures T8, T9 T11, T12 and L2 vertebra with cement augmentation at T9, T12 and L2 vertebra.
[2021-05-18] MEDS: Albuterol/Iprat 2.5/0.5MG 3 ML AMPUL.NEB INHALE ×4 (07:18→20:10)
--- NOTE | 2021-05-18 07:28 | ECG_ITS ---
Test Reason : DYSPNEA Blood Pressure : / mmHG Vent. Rate : 090 BPM Atrial Rate : 090 BPM P-R Int : 154 ms QRS Dur : 074 ms QT Int : 372 ms P-R-T Axes : 059 -07 043 degrees QTc Int : 455 ms Artifact in tracing Normal sinus rhythm Normal ECG When compared with ECG of 31-MAR-2021 18:56, No significant changes seen Referred By: Simone Serrato Electronically Signed By:TITUS CERVANTES
--- NOTE | 2021-05-18 07:32 | ED_ITS ---
HPI - SOB/Dyspnea General Chief Complaint: Dyspnea Stated Complaint: sob Time Seen by Provider: 05/18/21 07:12 Source: patient and EMS Mode of arrival: EMS Limitations: no limitations History of Present Illness HPI Narrative: 76-year-old female history of COPD currently smoker use supplemental oxygen 3 L at home patient also with history of DVT on Eliquis. Patient's symptoms started this morning on EMS arrival patient initially was hypoxic in the 70s oxygen went up with supplemental oxygen. Related Data Home Medications Medication Instructions Recorded Confirmed calcium carbonate 600 mg (1,500 1 tab PO DAILY 03/31/21 05/18/21 mg)-vitamin D3 200 unit tablet clonazepam 1 mg tablet 1 mg PO BEDTIME PRN 03/31/21 05/18/21 cyanocobalamin (vitamin B-12) 1,000 mcg PO BEDTIME 03/31/21 05/18/21 1,000 mcg tablet docusate sodium 100 mg capsule 100 mg PO BID 03/31/21 05/18/21 folic acid 1 mg tablet 1 mg PO BID 03/31/21 05/18/21 gabapentin 100 mg capsule 200 mg PO BEDTIME 03/31/21 05/18/21 ipratropium 20 mcg-albuterol 100 1 puff INHALATION Q6H PRN 03/31/21 05/18/21 mcg/actuation mist for inhalation (Combivent Respimat) methotrexate sodium 2.5 mg tablet 10 mg PO SA 03/31/21 05/18/21 omeprazole 40 mg capsule,delayed 40 mg PO DAILY 03/31/21 05/18/21 release oxycodone 5 mg tablet 5 mg PO TID PRN 03/31/21 05/18/21 umeclidinium 62.5 mcg-vilanterol 1 inh INHALATION DAILY 03/31/21 05/18/21 25 mcg/actuation powdr for inhalation (Anoro Ellipta) linaclotide 290 mcg capsule 290 mcg PO BEDTIME 05/18/21 05/18/21 (Linzess) pregabalin 150 mg capsule 1 cap PO BID 05/18/21 05/18/21 risedronate 150 mg tablet 1 tab PO QMONTH 05/18/21 05/18/21 zolpidem 5 mg tablet 1 tab PO BEDTIME PRN 05/18/21 05/18/21 Previous Rx's Medication Instructions Recorded apixaban 5 mg tablet (Eliquis) 5 mg PO BID #72 tab 04/01/21 bisacodyl 5 mg tablet,delayed 10 mg PO BEDTIME 30 Days #60 tab 05/15/21 release (Dulcolax (bisacodyl)) Allergies Allergy/AdvReac Type Severity Reaction Status Date / Time loratadine [From CLARITIN] Allergy Unknown MOUTH SORE Verified 05/18/21 07:14 Review of Systems Review of Systems: All other systems are reviewed and are negative Constitutional: Reports as per HPI and Reports no additional constitutional complaints Eyes: Reports as per HPI and Reports no additional eye complaints Reports system reviewed and no additional complaints, except as documented Cardiovascular: Reports as per HPI and Reports no additional cardiovascular complaints Respiratory: Reports as per HPI and Reports no additional respiratory complaints Gastrointestinal: Reports as per HPI and Reports no additional gastrointestinal complaints Genitourinary: Reports no additional female genitourinary complaints Musculoskeletal: Reports no additional musculoskeletal complaints Skin/Breast: Reports system reviewed and no additional complaints, except as docu Psychiatric: Reports no additional psychiatric complaints Endocrine: Reports no additional endocrine complaints Hematologic/Lymphatic: Reports no additional hematologic/lymphatic complaints Allergic/Immunologic: Reports no additional allergic/immunologic complaints Reports system reviewed and no additional complaints, except as documented and Reports Abnormal speech present [facility] Past Medical History Medical History Chronic respiratory failure with hypoxia Compression fracture of T9 vertebra COPD (chronic obstructive pulmonary disease) DVT (deep venous thrombosis) Hiatal hernia History of diverticulitis History of treatment for tuberculosis Left rib fracture Opioid abuse Rash Rib pain on left side Rib pain on right side Surgical History H/O colonoscopy H/O esophagogastroduodenoscopy Social History Social History Alcohol intake: never Patient Tobacco Use Status: Current everyday Tobacco user Cigarettes Per Day: 2 Use of substances other than those prescribed or required for medical reasons: No Advance Directives: No Advance Directives Information Provided: Yes service: No Current occupational status: retired Physical Exam Vital Signs: Vital Signs: Last Vital Signs Temp 98.3 F 05/18/21 07:14 Pulse 96 05/18/21 09:22 Resp 20 12/02/21 09:22 BP 134/102 H 05/18/21 09:22 Pulse Ox 83 L 05/18/21 09:22 Oxygen Flow Rate 3 05/18/21 07:14 BMI result Body Mass Index 25.4 Vital signs have been reviewed as appeared to be correct. Blood pressure normal. Heart rate normal. Respiration rate elevated. Temperature normal. Oxygen saturation low Appearance: Alert. Cachectic Head: Normal external exam. Normocephalic. Atraumatic. No Valle signs noted. No raccoon eyes noted Eyes: PERRLA. EOMI. Conjunctiva and sclera normal. Eyelids normal. ENT: TM's Normal. Pharynx normal. Uvula midline. Moist mucous membranes. No trismus noted. No drooling noted. No muffled voice noted. Neck: Normal inspection. Neck supple. FROM. No adenopathy. Thyroid Normal. No meningeal signs. No neck mass noted. CVS: Normal heart rate and rhythm. Heart sound normal. No murmurs noted. Pulses normal throughout. Respiratory: No respiratory distress. Painless inspiration. Breath sounds normal. Diffuse expiratory wheezing with prolonged expiration diminished air movement bilaterally, Chest nontender. No accessory muscle usage noted. Abdomen: Soft and nontender. Bowel sounds normal in all 4 quadrants. No distention noted. No organomegaly noted. No visible injury noted. Back: No CVA tenderness. Full range of motion noted. Skin: Skin warm and dry. Normal skin color. Normal skin turgor. No ra shes/lesions/lacerations noted. Extremities: No lower extremity edema. Extremities exhibit normal range of motion. Extremities nontender. Neuro: Oriented X 3. Cranial nerve exam: II-XII are grossly intact No motor deficit. No sensory deficit. Reflexes normal. Course Course Course Narrative: Assessment and plan. 76-year-old female actively smoker history of COPD on 3 L of supplemental oxygen at home, came in with COPD exacerbation with hypoxia, patient was given DuoNeb with Solu-Medrol with magnesium feels better with improvement of her hypoxia. Multiple vertebral compression fracture patient has no back pain at the moment. Chronic left lower extremity pain that improved with 1 oxycodone. Patient is already on Eliquis. MDM - SOB/Dyspnea Medical Records Attestation: I reviewed the patient's medical records. Lab Data Attestation: I reviewed the patient's lab results. Result diagrams: 05/18/21 08:20 05/18/21 08:20 Labs: Lab Results 05/18/21 05/18/21 05/18/21 Range/Units 08:10 08:20 08:20 WBC 11.4 H (4.8-10.8) X10*3/uL RBC 4.26 (4.20-5.50) X10*6/uL Hgb 8.4 L (12.0-16.0) g/dl Hct 30.3 L (37.0-47.0) % MCV 71.1 L (80.0-98.0) fL MCH 19.7 L (27.0-33.0) pg MCHC 27.7 L (31.0-35.0) g/dl RDW 22.8 H (11.0-16.0) % Plt Count 610 H (160-400) X10*3/uL MPV 9.6 (9.4-12.3) fL Immature Gran % (Auto) 0.4 (0.0-0.4) % Neut % (Auto) 76.4 H (45-73) % Lymph % (Auto) 11.5 L (20-40) % [place] % (Auto) 11.0 (2-11) % Eos % (Auto) 0.4 (0-4) % Baso % (Auto) 0.3 (0-2) % Lymph # (Auto) 1.3 (1.2-4.9) X10*3/uL [place] # (Auto) 1.3 H (0.1-1.2) X10*3/uL Eos # (Auto) 0.0 (0.0-0.4) X10*3/uL Baso # (Auto) 0.0 (0.0-0.2) X10*3/uL Abs Immat Gran (auto) 0.05 H (0.00-0.03) X10*3/uL Absolute Neuts (auto) 8.7 H (2.0-8.3) x10*3/uL Absolute Nucleated RBC 0.000 (0.0-0.012) X10*3/uL Nucleated RBC % (auto) 0.0 (0.0-0.2) /100WBC O2 Saturation 84.0 % ABG pH at Pt Temp 7.44 (7.35-7.45) ABG pH (Temp Correct) 7.44 (7.35-7.45) ABG pCO2 at Pt Temp 40 (32-45) mmHg ABG pCO2 (Temp Corrct 40 (32-45) mmHg ABG pO2 at Pt Temp 57 L (83-108) mmHg ABG pO2 (Temp Correct 56 L (83-108) ABG HCO3 28 H (22-26) mmol/L ABG Base Excess (Actual) 3.7 mmol/L Sodium 141 (135-145) mmol/L Potassium 3.7 (3.3-5.1) mmol/L Chloride 107 (96-108) mmol/L Carbon Dioxide 28 (22-29) mmol/L Anion Gap 10 L (12-20) BUN 10 (9-16) mg/dL Creatinine 0.68 (0.5-1.4) mg/dL Estim Creat Clear Calc 58.2 Estimated GFR > 60 Random Glucose 108 (60-115) mg/dL Lactic Acid (0.5-2.0) mmol/L Calcium 9.4 D (8.4-10.2) mg/dL Total Bilirubin 0.6 (0.0-1.0) mg/dL Direct Bilirubin 0.3 (0.0-0.5) mg/dL AST 14 (5-31) U/L ALT 10 (0-31) U/L Alkaline Phosphatase 125 H (39-117) U/L Troponin I High Sens (<3.5-17.0) ng/L B-Natriuretic Peptide (<100) pg/mL Total Protein 6.6 (6.5-8.0) g/dL Albumin 3.5 (3.5-5.0) g/dL Lipase 11 (8-78) U/L Urine Color Urine Appearance Urine pH (5.0-8.0) Ur Specific [place] (1.005-1.025) Urine Protein (NEG-TRACE) MG/DL Urine Glucose (UA) (NEG) MG/DL Urine Ketones (NEG) MG/DL Urine Blood (NEG) Urine Nitrite (NEG) Ur Leukocyte Esterase (NEG) Urine RBC (0) /HPF Urine WBC (0-4) /HPF Ur Squamous Epith Cells /LPF Urine Bacteria /LPF Influenza Type A (PCR) (Negative) Influenza Type B (PCR) (Negative) RSV RNA Qual (PCR) (Negative) SARS-CoV-2 RNA (RT-PCR) (Negative) 05/18/21 05/18/21 05/18/21 Range/Units 08:20 08:20 08:20 WBC (4.8-10.8) X10*3/uL RBC (4.20-5.50) X10*6/uL Hgb (12.0-16.0) g/dl Hct (37.0-47.0) % MCV (80.0-98.0) fL MCH (27.0-33.0) pg MCHC (31.0-35.0) g/dl RDW (11.0-16.0) % Plt Count (160-400) X10*3/uL MPV (9.4-12.3) fL Immature Gran % (Auto) (0.0-0.4) % Neut % (Auto) (45-73) % Lymph % (Auto) (20-40) % [place] % (Auto) (2-11) % Eos % (Auto) (0-4) % Baso % (Auto) (0-2) % Lymph # (Auto) (1.2-4.9) X10*3/uL [place] # (Auto) (0.1-1.2) X10*3/uL Eos # (Auto) (0.0-0.4) X10*3/uL Baso # (Auto) (0.0-0.2) X10*3/uL Abs Immat Gran (auto) (0.00-0.03) X10*3/uL Absolute Neuts (auto) (2.0-8.3) x10*3/uL Absolute Nucleated RBC (0.0-0.012) X10*3/uL Nucleated RBC % (auto) (0.0-0.2) /100WBC O2 Saturation % ABG pH at Pt Temp (7.35-7.45) ABG pH (Temp Correct) (7.35-7.45) ABG pCO2 at Pt Temp (32-45) mmHg ABG pCO2 (Temp Corrct (32-45) mmHg ABG pO2 at Pt Temp (83-108) mmHg ABG pO2 (Temp Correct (83-108) ABG HCO3 (22-26) mmol/L ABG Base Excess (Actual) mmol/L Sodium (135-145) mmol/L Potassium (3.3-5.1) mmol/L Chloride (96-108) mmol/L Carbon Dioxide (22-29) mmol/L Anion Gap (12-20) BUN (9-16) mg/dL Creatinine (0.5-1.4) mg/dL Estim Creat Clear Calc Estimated GFR Random Glucose (60-115) mg/dL Lactic Acid 1.5 (0.5-2.0) mmol/L Calcium (8.4-10.2) mg/dL Total Bilirubin (0.0-1.0) mg/dL Direct Bilirubin (0.0-0.5) mg/dL AST (5-31) U/L ALT (0-31) U/L Alkaline Phosphatase (39-117) U/L Troponin I High Sens 7.0 (<3.5-17.0) ng/L B-Natriuretic Peptide 182 H (<100) pg/mL Total Protein (6.5-8.0) g/dL Albumin (3.5-5.0) g/dL Lipase (8-78) U/L Urine Color Urine Appearance Urine pH (5.0-8.0) Ur Specific [place] (1.005-1.025) Urine Protein (NEG-TRACE) MG/DL Urine Glucose (UA) (NEG) MG/DL Urine Ketones (NEG) MG/DL Urine Blood (NEG) Urine Nitrite (NEG) Ur Leukocyte Esterase (NEG) Urine RBC (0) /HPF Urine WBC (0-4) /HPF Ur Squamous Epith Cells /LPF Urine Bacteria /LPF Influenza Type A (PCR) NEGATIVE (Negative) Influenza Type B (PCR) NEGATIVE (Negative) RSV RNA Qual (PCR) NEGATIVE (Negative) SARS-CoV-2 RNA (RT-PCR) NEGATIVE (Negative) 05/18/21 Range/Units 08:20 WBC (4.8-10.8) X10*3/uL RBC (4.20-5.50) X10*6/uL Hgb (12.0-16.0) g/dl Hct (37.0-47.0) % MCV (80.0-98.0) fL MCH (27.0-33.0) pg MCHC (31.0-35.0) g/dl RDW (11.0-16.0) % Plt Count (160-400) X10*3/uL MPV (9.4-12.3) fL Immature Gran % (Auto) (0.0-0.4) % Neut % (Auto) (45-73) % Lymph % (Auto) (20-40) % [place] % (Auto) (2-11) % Eos % (Auto) (0-4) % Baso % (Auto) (0-2) % Lymph # (Auto) (1.2-4.9) X10*3/uL [place] # (Auto) (0.1-1.2) X10*3/uL Eos # (Auto) (0.0-0.4) X10*3/uL Baso # (Auto) (0.0-0.2) X10*3/uL Abs Immat Gran (auto) (0.00-0.03) X10*3/uL Absolute Neuts (auto) (2.0-8.3) x10*3/uL Absolute Nucleated RBC (0.0-0.012) X10*3/uL Nucleated RBC % (auto) (0.0-0.2) /100WBC O2 Saturation % ABG pH at Pt Temp (7.35-7.45) ABG pH (Temp Correct) (7.35-7.45) ABG pCO2 at Pt Temp (32-45) mmHg ABG pCO2 (Temp Corrct (32-45) mmHg ABG pO2 at Pt Temp (83-108) mmHg ABG pO2 (Temp Correct (83-108) ABG HCO3 (22-26) mmol/L ABG Base Excess (Actual) mmol/L Sodium (135-145) mmol/L Potassium (3.3-5.1) mmol/L Chloride (96-108) mmol/L Carbon Dioxide (22-29) mmol/L Anion Gap (12-20) BUN (9-16) mg/dL Creatinine (0.5-1.4) mg/dL Estim Creat Clear Calc Estimated GFR Random Glucose (60-115) mg/dL Lactic Acid (0.5-2.0) mmol/L Calcium (8.4-10.2) mg/dL Total Bilirubin (0.0-1.0) mg/dL Direct Bilirubin (0.0-0.5) mg/dL AST (5-31) U/L ALT (0-31) U/L Alkaline Phosphatase (39-117) U/L Troponin I High Sens (<3.5-17.0) ng/L B-Natriuretic Peptide (<100) pg/mL Total Protein (6.5-8.0) g/dL Albumin (3.5-5.0) g/dL Lipase (8-78) U/L Urine Color YELLOW Urine Appearance CLEAR Urine pH 6.5 (5.0-8.0) Ur Specific [place] <= 1.005 (1.005-1.025) Urine Protein NEG (NEG-TRACE) MG/DL Urine Glucose (UA) NEG (NEG) MG/DL Urine Ketones NEG (NEG) MG/DL Urine Blood NEG (NEG) Urine Nitrite NEG (NEG) Ur Leukocyte Esterase 3+ H (NEG) Urine RBC 0 (0) /HPF Urine WBC 5-9 H (0-4) /HPF Ur Squamous Epith Cells TRACE /LPF Urine Bacteria TRACE /LPF Influenza Type A (PCR) (Negative) Influenza Type B (PCR) (Negative) RSV RNA Qual (PCR) (Negative) SARS-CoV-2 RNA (RT-PCR) (Negative) Imaging Data Chest x-ray: Radiologist's impression: Calcified nodule left upper lobe with smaller nodular calcifications in the left upper lobe. Increased reticular interstitial changes in both lower lobes and right midlung. There is a moderate to large hiatal hernia. ? Acute compression fractures T4 and T6 vertebra. Further treatment with kyphoplasty can be performed if clinically deemed necessary. There are old compression fractures T8, T9 T11, T12 and L2 vertebra with cement augmentation at T9, T12 and L2 vertebra. ? ECG Data Interpretation: Normal sinus rhythm at 90 beats per minute, normal intervals, J point elevation just in V2. Discharge Plan Discharge Clinical Impression: COPD exacerbation Patient Disposition: Admitted As Inpatient
[2021-05-18] MEDS: oxyCODONE HCl Immed Release 5 MG TABLET 10 MG PO (08:08)
[2021-05-18 08:18] LABS: ABG Base Excess 3.7 mmol/L; ABG HCO3 28 mmol/L (22-26); ABG pCO2 40 mmHg (32-45); ABG pCO2 TC 40 mmHg (32-45); ABG pH 7.44 (7.35-7.45); ABG pH TC 7.44 (7.35-7.45); ABG pO2 57 mmHg (83-108); ABG pO2 TC 56 (83-108)
[2021-05-18] MEDS: methylPREDNISolone Sod Succ 125 MG/2 ML VIAL IVPUSH (08:22)
[2021-05-18] MEDS: Magnesium Sulfate/H2O 2 GM/50 ML PIGGYBACK IV (08:22)
[2021-05-18 08:29] LABS: MANUAL DIFF FLAG NO
[2021-05-18 08:30] LABS: Basophils Percent Auto 0.3 % (0-2); Eosinophils Percent Auto 0.4 % (0-4); Hematocrit 30.3 % (37.0-47.0); Hemoglobin 8.4 g/dl (12.0-16.0); Imm Gran Abs Auto 0.05 X10*3/uL (0.00-0.03); Imm Gran Pct Auto 0.4 % (0.0-0.4); Lymphocytes Absolute Auto 1.3 X10*3/uL (1.2-4.9); Lymphocytes Percent Auto 11.5 % (20-40); Mean Corpuscular HGB Conc 27.7 g/dl (31.0-35.0); Mean Corpuscular Hemoglobin 19.7 pg (27.0-33.0); Mean Corpuscular Volume 71.1 fL (80.0-98.0); Mean Platelet Volume 9.6 fL (9.4-12.3); Monocytes Absolute Auto 1.3 X10*3/uL (0.1-1.2); Neutrophils Absolute Auto 8.7 x10*3/uL (2.0-8.3); Neutrophils Percent Auto 76.4 % (45-73); Platelet Count 610 X10*3/uL (160-400); Red Blood Count 4.26 X10*6/uL (4.20-5.50); Red Cell Distribution Width 22.8 % (11.0-16.0); White Blood Count 11.4 X10*3/uL (4.8-10.8)
[2021-05-18 08:33] LABS: Appearance Urine CLEAR; Color Urine YELLOW; Glucose Urine UA NEG (NEG); Leukocyte Esterase Urine 3+ (NEG); Nitrite Urine NEG (NEG); PH 6.5 (5.0-8.0); Specific Gravity - Urine <= 1.005 (1.005-1.025); UACC Culture Trigger YES; Urine Blood NEG (NEG); Urine Ketones NEG (NEG); Urine Protein NEG (NEG-TRACE)
--- NOTE | 2021-05-18 08:40 | PHA.MEDREC ---
Pharmacy Consult ? Medication Reconciliation Pharmacy has completed the medication reconciliation. Patient has an outdated list with her. Patient reports taking clonezapam every night, but per PDMP patient has not filled it since 2020. She also has no filled Combivent in [place]. Lakeisha Lindsey, PharmD
[2021-05-18 08:42] LABS: Lactic Acid 1.5 mmol/L (0.5-2.0)
[2021-05-18 08:48] LABS: Alanine Aminotransferase 10 U/L (0-31); Albumin Level 3.5 g/dL (3.5-5.0); Alkaline Phosphatase 125 U/L (39-117); Anion Gap 10 (12-20); Aspartate Amino Transferase 14 U/L (5-31); Bilirubin Direct 0.3 mg/dL (0.0-0.5); Bilirubin Total 0.6 mg/dL (0.0-1.0); Blood Urea Nitrogen 10 mg/dL (9-16); Calcium 9.4 mg/dL (8.4-10.2); Carbon Dioxide 28 mmol/L (22-29); Chloride 107 mmol/L (96-108); Creatinine Clr Calc Pharmacy 58.2; Estimated Glomerular Filt Rate > 60; Glucose Random 108 mg/dL (60-115); Lipase 11 U/L (8-78); Potassium 3.7 mmol/L (3.3-5.1); Sodium 141 mmol/L (135-145); Total Protein 6.6 g/dL (6.5-8.0)
[2021-05-18 08:50] LABS: B Type Natriuretic Peptide 182 pg/mL (<100)
[2021-05-18 08:52] LABS: Bacteria Urine TRACE /LPF; RBC Urine 0 /HPF (0); Squamous Epithelial Cell Urine TRACE /LPF
[2021-05-18 09:12] LABS: Influenza A PCR NEGATIVE (Negative); Influenza B PCR NEGATIVE (Negative); Resp Syncy Virus RNA Qual PCR NEGATIVE (Negative); SARS COV2 PCR INHOUSE NEGATIVE (Negative)
--- NOTE | 2021-05-18 11:45 | PC.NURSE ---
Pt sleeping at this time. skin pwd. caregiver and patient aware of plan for admission.
[2021-05-18 12:01] LABS: ABG Refer to POC result
--- NOTE | 2021-05-18 13:11 | P.HPHOSP_ITS ---
History of Present Illness Date of Service: 05/18/21 Attending physician on admission: Tu Henderson Chief Complaint: Shortness of breath 76-year-old female patient with past medical history significant for COPD and chronic respiratory failure on 3 L of oxygen at baseline, history of left lower extremity DVT on Eliquis, chronic back pain due to multiple vertebral fractures presented to [facility] due to acute onset of shortness of breath without associated fever, chills, in the emergency room patient was noticed to have significant hypoxia with finger oximetry in low 80s , chest x-ray showed worsening bilateral reticular interstitial changes in both lower lobes and right mid lung, WBC mildly elevated, ABGs showed normal CO2 and hypoxia, chest x-ray also showed acute T4 and T6 vertebral fractures, in the emergency room patient treated with IV steroids, updraft treatment and 10 mg of oxycodone since then she became somnolent, arousable but falls back to sleep, complaining of fall couple weeks ago with coccyx pain, denies chest pain, denies recent travel or sick contacts, admits that she lives alone, smokes few cigarettes,take 2 puffs only. Patient is being admitted to [facility] to acute on chronic hypoxic respiratory failure, COPD exacerbation and fall. Review of Systems Review of Systems: General no headache, no dizziness, no fever chills. CVS no chest pain, no palpitation. Respiratory shortness of breath, cough Gastrointestinal no nausea , no vomiting, no abdominal pain Musculoskeletal coccyx pain Yes all other systems are reviewed and are negative PMFSH Medical History Chronic respiratory failure with hypoxia Compression fracture of T9 vertebra COPD (chronic obstructive pulmonary disease) DVT (deep venous thrombosis) Hiatal hernia History of diverticulitis History of treatment for tuberculosis Left rib fracture Opioid abuse Rash Rib pain on left side Rib pain on right side Pertinent family history: Patient somnolent unable to provide family history Surgical History H/O colonoscopy H/O esophagogastroduodenoscopy Social History Alcohol intake: never Patient Tobacco Use Status: Current everyday Tobacco user Cigarettes Per Day: 2 Use of substances other than those prescribed or required for medical reasons: No Advance Directives: No Advance Directives Information Provided: Yes service: No Current occupational status: retired Meds Allergies Allergy/AdvReac Type Severity Reaction Status Date / Time loratadine [From CLARITIN] Allergy Unknown MOUTH SORE Verified 05/18/21 07:14 Active Medications: Current Medications Acetaminophen (Acetaminophen 325 Mg Tablet) 650 mg PO Q6H PRN PRN Reason: Pain, Mild (Pain Scale 1-3) Albuterol/Ipratropium (Albuterol/Iprat 2.5/0.5mg 3 Ml Ampul.Neb) 3 ml INHALE QID LACEY Albuterol/Ipratropium (Albuterol/Iprat 2.5/0.5mg 3 Ml Ampul.Neb) 3 ml INHALE Q2H PRN PRN Reason: sob Apixaban (Apixaban 5 Mg Tablet) 5 mg PO BID LACEY Bisacodyl (Bisacodyl 5 Mg Tablet.) 10 mg PO BEDTIME LACEY Calcium Carbonate/Cholecalciferol (Calcium + Vitamin D 250 Mg Tablet) 500 mg PO DAILY LACEY Clonazepam (Clonazepam 0.5 Mg Tablet) 0.5 mg PO BEDTIME PRN PRN Reason: insomnia Cyanocobalamin (Cyanocobalamin (Vitamin B-12) 1,000 Mcg Tablet) 1,000 mcg PO BEDTIME LACEY Docusate Sodium (Docusate Sodium 100 Mg Capsule) 100 mg PO BID LACEY Folic Acid (Folic Acid 1 Mg Tablet) 1 mg PO DAILY LACEY Furosemide (Furosemide 20 Mg/2 Ml Vial) 20 mg IVPUSH ONCE ONE; Protocol Stop: 05/18/21 13:08 Gabapentin (Gabapentin 100 Mg Capsule) 200 mg PO BEDTIME LACEY Methylprednisolone Sodium Succinate (Methylprednisolone Sod Succ 40 Mg/Ml Vial) 40 mg IVPUSH BID ONE Stop: 05/18/21 13:01 Non-Formulary Medication (Umeclidinium-Vilanterol [Anoro Ellipta]) 1 inhalation INHALE DAILY LACEY Omeprazole (Omeprazole 40 Mg Capsule.) 40 mg PO DAILY LACEY Ondansetron HCl (Ondansetron Hcl 4 Mg/2 Ml Vial) 4 mg IVPUSH Q8H PRN PRN Reason: Nausea and Vomiting Oxycodone HCl (Oxycodone Hcl Immed Release 5 Mg Tablet) 5 mg PO Q6H PRN PRN Reason: Pain, Severe (Pain Scale 7-10) Pharmacy Consult (Consult Rx Perform Med Rec) 1 each MISCELLANE ONCE PRN PRN Reason: Consult order Pregabalin (Pregabalin 150 Mg Capsule) 150 mg PO BID LACEY Sodium Chloride (0.9 % Sodium Chloride Flush 3 Ml Syringe) 3 ml IVFLUSH QSHIFT LACEY Zolpidem Tartrate (Zolpidem Tartrate 5 Mg Tablet) 5 mg PO BEDTIME PRN PRN Reason: Insomnia Home Medications Medication Instructions Recorded Confirmed Last Taken Type calcium carbonate 600 mg (1,500 1 tab PO DAILY 03/31/21 05/18/21 05/17/21 History mg)-vitamin D3 200 unit tablet clonazepam 1 mg tablet 1 mg PO BEDTIME PRN 03/31/21 05/18/21 05/17/21 History cyanocobalamin (vitamin B-12) 1,000 mcg PO BEDTIME 03/31/21 05/18/21 05/17/21 History 1,000 mcg tablet docusate sodium 100 mg capsule 100 mg PO BID 03/31/21 05/18/21 05/17/21 History folic acid 1 mg tablet 1 mg PO BID 03/31/21 05/18/21 05/17/21 History gabapentin 100 mg capsule 200 mg PO BEDTIME 03/31/21 05/18/21 05/17/21 History ipratropium 20 mcg-albuterol 100 1 puff INHALATION Q6H PRN 03/31/21 05/18/21 Unknown History mcg/actuation mist for inhalation (Combivent Respimat) methotrexate sodium 2.5 mg tablet 10 mg PO SA 03/31/21 05/18/21 05/13/21 History omeprazole 40 mg capsule,delayed 40 mg PO DAILY 03/31/21 05/18/21 05/17/21 History release oxycodone 5 mg tablet 5 mg PO TID PRN 03/31/21 05/18/21 03/30/21 History umeclidinium 62.5 mcg-vilanterol 1 inh INHALATION DAILY 03/31/21 05/18/21 05/17/21 History 25 mcg/actuation powdr for inhalation (Anoro Ellipta) linaclotide 290 mcg capsule 290 mcg PO BEDTIME 05/18/21 05/18/21 05/17/21 History (Linzess) pregabalin 150 mg capsule 1 cap PO BID 05/18/21 05/18/21 05/17/21 History risedronate 150 mg tablet 1 tab PO QMONTH 05/18/21 05/18/21 05/15/21 History zolpidem 5 mg tablet 1 tab PO BEDTIME PRN 05/18/21 05/18/21 Unknown History Physical Exam Vital Signs and Narrative: Vital Signs: Last Vital Signs Temp 98.3 F 05/18/21 07:14 Pulse 87 05/18/21 11:47 Resp 14 05/18/21 11:47 BP 126/62 05/18/21 11:47 Pulse Ox 100 05/18/21 11:47 Oxygen Flow Rate 3 05/18/21 07:14 BMI result Body Mass Index 25.4 General somnolent but arousable, no acute distress, answers question approp riately Neck supple no JVD. CVS regular rate rhythm, Respiratory lungs bilateral rhonchi, no respiratory distress, no use of accessory muscles Gastrointestinal abdomen soft, nontender, bowel sounds audible Extremities no edema. Neuro somnolent but arousable moving all 4 extremity speech clear Skin multiple dry lesions at back, few bruises upper extremity Musculoskeletal no deformity Results Labs CBC and Chem 7: 05/18/21 08:20 05/18/21 08:20 Labs: Laboratory Results - last 24 hr 05/18/21 05/18/21 05/18/21 08:10 08:20 08:20 MCV 71.1 L MCH 19.7 L MCHC 27.7 L RDW 22.8 H Plt Count 610 H MPV 9.6 Immature Gran % (Auto) 0.4 Neut % (Auto) 76.4 H Lymph % (Auto) 11.5 L [place] % (Auto) 11.0 Eos % (Auto) 0.4 Baso % (Auto) 0.3 Lymph # (Auto) 1.3 [place] # (Auto) 1.3 H Eos # (Auto) 0.0 Baso # (Auto) 0.0 Abs Immat Gran (auto) 0.05 H Absolute Neuts (auto) 8.7 H Absolute Nucleated RBC 0.000 Nucleated RBC % (auto) 0.0 O2 Saturation 84.0 ABG pH at Pt Temp 7.44 ABG pH (Temp Correct) 7.44 ABG pCO2 at Pt Temp 40 ABG pCO2 (Temp Corrct 40 ABG pO2 at Pt Temp 57 L ABG pO2 (Temp Correct 56 L ABG HCO3 28 H ABG Base Excess (Actual) 3.7 Anion Gap 10 L Estim Creat Clear Calc 58.2 Estimated GFR > 60 Random Glucose 108 Lactic Acid Calcium 9.4 D Total Bilirubin 0.6 Direct Bilirubin 0.3 AST 14 ALT 10 Alkaline Phosphatase 125 H Troponin I High Sens B-Natriuretic Peptide Total Protein 6.6 Albumin 3.5 Lipase 11 Urine Color Urine Appearance Urine pH Ur Specific [place] Urine Protein Urine Glucose (UA) Urine Ketones Urine Blood Urine Nitrite Ur Leukocyte Esterase Urine RBC Urine WBC Ur Squamous Epith Cells Urine Bacteria Influenza Type A (PCR) Influenza Type B (PCR) RSV RNA Qual (PCR) SARS-CoV-2 RNA (RT-PCR) 05/18/21 05/18/21 05/18/21 08:20 08:20 08:20 MCV MCH MCHC RDW Plt Count MPV Immature Gran % (Auto) Neut % (Auto) Lymph % (Auto) [place] % (Auto) Eos % (Auto) Baso % (Auto) Lymph # (Auto) [place] # (Auto) Eos # (Auto) Baso # (Auto) Abs Immat Gran (auto) Absolute Neuts (auto) Absolute Nucleated RBC Nucleated RBC % (auto) O2 Saturation ABG pH at Pt Temp ABG pH (Temp Correct) ABG pCO2 at Pt Temp ABG pCO2 (Temp Corrct ABG pO2 at Pt Temp ABG pO2 (Temp Correct ABG HCO3 ABG Base Excess (Actual) Anion Gap Estim Creat Clear Calc Estimated GFR Random Glucose Lactic Acid 1.5 Calcium Total Bilirubin Direct Bilirubin AST ALT Alkaline Phosphatase Troponin I High Sens 7.0 B-Natriuretic Peptide 182 H Total Protein Albumin Lipase Urine Color Urine Appearance Urine pH Ur Specific [place] Urine Protein Urine Glucose (UA) Urine Ketones Urine Blood Urine Nitrite Ur Leukocyte Esterase Urine RBC Urine WBC Ur Squamous Epith Cells Urine Bacteria Influenza Type A (PCR) NEGATIVE Influenza Type B (PCR) NEGATIVE RSV RNA Qual (PCR) NEGATIVE SARS-CoV-2 RNA (RT-PCR) NEGATIVE 05/18/21 08:20 MCV MCH MCHC RDW Plt Count MPV Immature Gran % (Auto) Neut % (Auto) Lymph % (Auto) [place] % (Auto) Eos % (Auto) Baso % (Auto) Lymph # (Auto) [place] # (Auto) Eos # (Auto) Baso # (Auto) Abs Immat Gran (auto) Absolute Neuts (auto) Absolute Nucleated RBC Nucleated RBC % (auto) O2 Saturation ABG pH at Pt Temp ABG pH (Temp Correct) ABG pCO2 at Pt Temp ABG pCO2 (Temp Corrct ABG pO2 at Pt Temp ABG pO2 (Temp Correct ABG HCO3 ABG Base Excess (Actual) Anion Gap Estim Creat Clear Calc Estimated GFR Random Glucose Lactic Acid Calcium Total Bilirubin Direct Bilirubin AST ALT Alkaline Phosphatase Troponin I High Sens B-Natriuretic Peptide Total Protein Albumin Lipase Urine Color YELLOW Urine Appearance CLEAR Urine pH 6.5 Ur Specific [place] <= 1.005 Urine Protein NEG Urine Glucose (UA) NEG Urine Ketones NEG Urine Blood NEG Urine Nitrite NEG Ur Leukocyte Esterase 3+ H Urine RBC 0 Urine WBC 5-9 H Ur Squamous Epith Cells TRACE Urine Bacteria TRACE Influenza Type A (PCR) Influenza Type B (PCR) RSV RNA Qual (PCR) SARS-CoV-2 RNA (RT-PCR) Imaging Radiologist's Impressions: Impressions Chest X-Ray 05/18/21 09:04 IMPRESSION: Calcified nodule left upper lobe with smaller nodular calcifications in the left upper lobe. Increased reticular interstitial changes in both lower lobes and right midlung. There is a moderate to large hiatal hernia. Acute compression fractures T4 and T6 vertebra. Further treatment with kyphoplasty can be performed if clinically deemed necessary. There are old compression fractures T8, T9 T11, T12 and L2 vertebra with cement augmentation at T9, T12 and L2 vertebra. Assessment and Plan (1) COPD exacerbation: Status: Acute (2) Chronic idiopathic constipation: Status: Acute (3) DVT (deep venous thrombosis): Qualifiers: Affected thrombotic vein of extremity: popliteal Chronicity: acute DVT location: lower extremity Laterality: left Qualified Code(s): I82.432 - Acute embolism and thrombosis of left popliteal vein Status: Acute (4) Rheumatoid arthritis: Status: Acute (5) Bipolar disorder: Status: Acute 75-year-old female with a past medical history of prior DVT on anticoagulation, history of chronic respiratory failure on 3 L of oxygen p resented to [place] [facility] with acute onset of shortness of breath and noted to be in on chronic respiratory failure and COPD exacerbation , chest x-ray showed acute T4 and T6 vertebral fracture and increase in reticular interstitial changes in both lower lobes. Acute on chronic respiratory failure with hypoxia Multifactorial, due to COPD exacerbation and pneumonitis Saturations in low 80s in the emergency room while on oxygen.? Now improved to 89-90 % on 6L Continue oxygen support, treat with IV steroids, scheduled and as needed updraft treatment, cough medication, and IV antibiotic Somnolence resolved no acute encephalopathy was likely related to oxycodone patient later became more awake. Tobacco use disorder Patient reports he continues to smoke 2 cigarettes daily.? She has been encour aged complete cessation. Elevated BNP likely due to COPD No history of prior CHF, will give IV Lasix due to leg edema, follow clinical course Acute on chronic anemia Low MCV iron studies consistent with iron deficiency anemia check stool guaiac since on Eliquis, will consult Gastroenterology Chronic LLE DVT Continue Eliquis, significant left lower extremity edema, keep leg elevated Acute on Chronic back pain Status post fall 2 weeks ago now with acute coccyx pain Chronic pain due to multiple vertebral fractures s/p vertebroplasty T9-T12 and L2, now with acute T4 and T6 fractures Will add Miacalcin, continue Tylenol, Neurontin, pregabalin and oxycodone Will obtain PT eval once more stable Hiatial hernia / GERD continue PPI History of rheumatoid arthritis with Raynaud's disease will hold methotrexate Full Code DVT pptx -- On Eliquis Quality Stroke Does the patient have a stroke diagnosis?: No VTE Prior VTE?: No VTE Risk Level:: Medical - moderate - high VTE Device Contraindication: N/A - Device Ordered VTE Drug Contraindication: N/A - Med Ordered
[2021-05-18 14:02] LABS: Iron 12 mcg/dL (30-160); Percent Iron Saturation 3 % (15-50); Total Iron Binding Capacity 431 mcg/dL (228-428); Unsaturated Iron Binding 419 ug/dL
[2021-05-18] MEDS: Furosemide 20 MG/2 ML VIAL IVPUSH (14:19)
--- NOTE | 2021-05-18 14:20 | PC.NURSE ---
for last hour or two patient has been sleeping. at this time pt was difficult to arouse from sleep, requiriing sternal rub. did wake then falls asleep quickly. pupils 4-5mm and equal. doc kj aware. pt states, once awake, i sleep all the time .
--- NOTE | 2021-05-18 14:46 | PC.NURSE ---
up to br, skin pwd. no confusion. natural void for 500ml
[2021-05-18] MEDS: guaiFENesin DM 200/20/10 ML 10 ML SYRUP PO ×2 (15:45→20:57)
[2021-05-18] MEDS: Calcitonin,Salmon,Synth Nasal 3.7 ML BOTTLE 1 SPRAY NOSTRILALT (15:45)
[2021-05-18] MEDS: methylPREDNISolone Sod Succ 40 MG/ML VIAL IVPUSH (17:35)
--- NOTE | 2021-05-18 17:36 | PC.NURSE ---
continues to complain of leg pain. aware that oxycodone is now 5mg not 10mg.
[2021-05-18] MEDS: oxyCODONE HCl Immed Release 5 MG TABLET PO ×2 (17:41→23:12)
--- NOTE | 2021-05-18 19:20 | PC.NURSE ---
PT satting at 80% on 4 L/min of O2 with pulse oximeter reader on the left ear. Pulse ox switched to forehead monitor and PT is resting comfortably in bed. PT is currently satting at 86% on 4 L/min. PT denies any CP or SOB. This nurse to call RT to administer updraft due at 20:00.
[2021-05-18] MEDS: Gabapentin 100 MG CAPSULE 200 MG PO (20:57)
[2021-05-18] MEDS: Pregabalin 150 MG CAPSULE PO (20:57)
[2021-05-18] MEDS: bisacodyL 5 MG TABLET.DR 10 MG PO (20:58)
[2021-05-18] MEDS: Apixaban 5 MG TABLET PO (20:58)
[2021-05-18] MEDS: Docusate Sodium 100 MG CAPSULE PO (20:58)
[2021-05-18] MEDS: Cyanocobalamin (Vitamin B-12) 1,000 MCG TABLET 1000 MCG PO (20:58)
[2021-05-18] MEDS: Doxycycline Hyclate 100 MG in 0.9 % Sodium Chloride 250 ML 166.67 MG IV (21:00)
--- NOTE | 2021-05-18 21:39 | MHC.CM.PN ---
CM met with admitted pt. A&Ox3. Pt looks older than her stated age. IMM reviewed and signed per protocol 05/18/21@[id number]. No HCP on file. Declines to complete one at this time. States her [employer], Mely ([phone]) is her HCP. Pt does not seem to understand HCP vs [employer]. States Mely provides 8 hours/week of [employer]. States employed by [employer]. Uses [employer]. Had MOW in past, but states she cooks herself and keeps losing the [employer] telephone number. Pt states she feels safe at home. Pt lives alone. Uses a cane and home oxygen. Pt unsure of oxygen company. Pt is refusing STR. Pt will consider home PT. Pt is fully vaccinated for Covid with [employer]. D/C plan is home with existing services. States [employer] Mely will provide transportation home. CM to follow for d/c needs.
--- NOTE | 2021-05-18 21:46 | PC.NURSE ---
PT increased to 12 L/min via NC with [place] humidifier. PT is satting between 86-90% with O2, drops down to 70% when she dislodges NC while moving around in bed. PT continues to occlude IV catheter infusion. This RN has to continuously check on the PT and IV pump, reminding PT to keep her arm straight so antibiotics will infuse.
[2021-05-18] MEDS: Zolpidem Tartrate 5 MG TABLET PO (23:12)
--- NOTE | 2021-05-18 23:22 | PC.NURSE ---
PT report given to RN on med surg floor.
[2021-05-19] VITALS (9 sets, daily range): BP systolic 105–134; BP diastolic 59–83; PULSE 68–110; RESP 16–22; TEMP 36.1–36.6; O2SAT 68–99
[2021-05-19] MEDS: 0.9 % Sodium Chloride Flush 3 ML SYRINGE IVFLUSH ×3 (00:36→21:28)
[2021-05-19] MEDS: methylPREDNISolone Sod Succ 40 MG/ML VIAL IVPUSH ×3 (00:37→16:00)
[2021-05-19 05:48] LABS: Hematocrit 27.6 % (37.0-47.0); Hemoglobin 7.7 g/dl (12.0-16.0); Mean Corpuscular HGB Conc 27.9 g/dl (31.0-35.0); Mean Corpuscular Hemoglobin 19.6 pg (27.0-33.0); Mean Corpuscular Volume 70.4 fL (80.0-98.0); Mean Platelet Volume 9.8 fL (9.4-12.3); NRBC Pct Auto 0.2 /100WBC (0.0-0.2); Platelet Count 513 X10*3/uL (160-400); Red Blood Count 3.92 X10*6/uL (4.20-5.50); Red Cell Distribution Width 22.4 % (11.0-16.0); White Blood Count 10.6 X10*3/uL (4.8-10.8)
[2021-05-19 06:04] LABS: Anion Gap 9 (12-20); Blood Urea Nitrogen 13 mg/dL (9-16); Calcium 9.1 mg/dL (8.4-10.2); Carbon Dioxide 29 mmol/L (22-29); Chloride 107 mmol/L (96-108); Creatinine Clr Calc Pharmacy 59.9; Estimated Glomerular Filt Rate > 60; Glucose Random 168 mg/dL (60-115); Potassium 4.4 mmol/L (3.3-5.1); Sodium 141 mmol/L (135-145)
--- NOTE | 2021-05-19 07:40 | P.CNGI_ITS ---
History of Present Illness Data of Consult Service Date: 05/19/21 Requesting physician: Tu Henderson Primary Care Provider: Carlos Alberto Rodriges HPI Reason for consult: anemia, GIB 76 YF with COPD and chronic respiratory failure on 3 L of oxygen at baseline, history of left lower extremity DVT on Eliquis, chronic back pain due to multiple vertebral fractures presented to [facility] ED on 05/18/21 with acute onset of shortness of breath without associated fever, chills: Patient is followed in the GI clinic by Malena Pina NP. HPI Narrative: 76-year-old female history of COPD currently smoker use supp lemental oxygen 3 L at home patient also with history of DVT on Eliquis.? Patient's symptoms started this morning on EMS arrival patient initially was hypoxic in the 70s oxygen went up with supplemental oxygen . Pt noted to have significant hypoxia with 02 saturations in the low 80s , WBC mildly elevated, ABGs showed normal CO2 and hypoxia. In the ED, Pt was treated with IV steroids, updraft treatment and 10 mg of oxycodone since then she became somnolent, arousable but falls back to sleep, complaining of fall couple weeks ago with coccyx pain, denies chest pain, denies recent travel or sick contacts, admits that she lives alone, smokes few cigarettes,take 2 puffs only.? Pt admitted to [facility] with acute on chronic hypoxic respiratory failure, COPD exacerbation and fall. Labs revealed H &H of 8.4 & 30.3 (decreased from 9.6 & 32.8 in 04/06) Repeat H &H 7.7 & 27.6 today Patient denies symptoms of heartburn, dysphagia, nausea, vomiting, change in appetite or weight. Denies recent change in bowel habits, constipation, diarrhea, black stools or rectal bleeding. Has a BM once a week. 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 Patient denies known family history of colon polyps, colon cancer or other GI malignancies. IMAGING STUDIES: chest x-ray showed worsening bilateral reticular interstitial changes in both lower lobes and right mid lung and acute T4 and T6 vertebral fractures, 09/[address] SCAN SHOWED: Large hiatal hernia with relatively small intra-abdominal stomach. Diverticulosis throughout the large bowel most prominent in the descending and sigmoid colon. 1.4 cms suspected left adrenal adenoma ENDOSCOPIC STUDIES: 03/2006 EGD AND COLONOSCOPY WERE PERFORMED BY DR SAUNDERS: EGD showed moderate sized hiatal hernia and irregular Z line Esophgeal biopsies showed chronic GERD and no Perry's Colonoscopy showed sigmoid diverticulosis and a 2 mm flat polyp was removed - bx showed normal colon mucosa. Review of Systems Cardiovascular: Cardiovascular: Reports dyspnea and Reports dyspnea on exertion Respiratory: Respiratory: Reports dyspnea and Reports dyspnea on exertion [facility] Past Medical History Medical History Chronic respiratory failure with hypoxia Compression fracture of T9 vertebra COPD (chronic obstructive pulmonary disease) DVT (deep venous thrombosis) Hiatal hernia History of diverticulitis History of treatment for tuberculosis Left rib fracture Opioid abuse Rash Rib pain on left side Rib pain on right side Surgical History Surgical History H/O colonoscopy H/O esophagogastroduodenoscopy Social History Social History Household Members: None Housing: House Do you presently have visiting nurse or other home services: No (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 If so, by whom?: No Do you feel safe in your current relationship?: No Current Relationship Is there a partner from a previous relationship who is making you feel unsafe n ow?: No Are you made to feel afraid or neglected: No Advance Directives: No Advance Directives Information Provided: Yes Do you have thoughts of harming others: None Do you have a plan to hurt others: No Plan Recently lost weight without trying: No How much weight loss: 14-23 pounds Eating poorly because of decreased appetite: No Nutrition screen score: 2 Nutrition Risks: No Nutritional Risk Patient : No : No Poor oral hygiene: No service: No Current occupational status: retired Meds Allergies Allergy/AdvReac Type Severity Reaction Status Date / Time loratadine [From CLARITIN] Allergy Unknown MOUTH SORE Verified 05/18/21 07:14 Active Medications: Current Medications Acetaminophen (Acetaminophen 325 Mg Tablet) 650 mg PO Q6H PRN PRN Reason: Pain, Mild (Pain Scale 1-3) Albuterol/Ipratropium (Albuterol/Iprat 2.5/0.5mg 3 Ml Ampul.Neb) 3 ml INHALE Q2H PRN PRN Reason: sob Albuterol/Ipratropium (Albuterol/Iprat 2.5/0.5mg 3 Ml Ampul.Neb) 3 ml INHALE RQ4H WHILE AWAKE [facility] Last Admin: 05/18/21 20:10 Dose: 3 ml Documented by: Apixaban (Apixaban 5 Mg Tablet) 5 mg PO BID [facility] Last Admin: 05/18/21 20:58 Dose: 5 mg Documented by: Bisacodyl (Bisacodyl 5 Mg Tablet.Dr) 10 mg PO BEDTIME [facility] Last Admin: 05/18/21 20:58 Dose: 10 mg Documented by: Calcitonin [place] (Calcitonin,[place],Synth Nasal 3.7 Ml Bottle) 1 spray NOSTR ILALT DAILY [facility] Last Admin: 05/18/21 15:45 Dose: 1 spray Documented by: Calcium Carbonate/Cholecalciferol (Calcium + Vitamin D 250 Mg Tablet) 500 mg PO DAILY [facility] Clonazepam (Clonazepam 0.5 Mg Tablet) 0.5 mg PO BEDTIME PRN PRN Reason: insomnia Cyanocobalamin (Cyanocobalamin (Vitamin B-12) 1,000 Mcg Tablet) 1,000 mcg PO BEDTIME [facility] Last Admin: 05/18/21 20:58 Dose: 1,000 mcg Documented by: Docusate Sodium (Docusate Sodium 100 Mg Capsule) 100 mg PO BID [facility] Last Admin: 05/18/21 20:58 Dose: 100 mg Documented by: Folic Acid (Folic Acid 1 Mg Tablet) 1 mg PO DAILY LACEY Gabapentin (Gabapentin 100 Mg Capsule) 200 mg PO BEDTIME [facility] Last Admin: 05/18/21 20:57 Dose: 200 mg Documented by: Guaifenesin/Dextromethorphan (Guaifenesin Dm 200/20/10 Ml 10 Ml Syrup) 10 ml PO TID [facility] Last Admin: 05/18/21 20:57 Dose: 10 ml Documented by: Doxycycline Hyclate 100 mg/ (Sodium Chloride) 250 mls @ 166.67 mls/hr IV BID [facility] Last Infusion: 05/19/21 00:38 Dose: Infused Documented by: Methylprednisolone Sodium Succinate (Methylprednisolone Sod Succ 40 Mg/Ml Vial) 40 mg IVPUSH Q8H [facility] Last Admin: 05/19/21 00:37 Dose: 40 mg Documented by: Non-Formulary Medication (Umeclidinium-Vilanterol [Anoro Ellipta]) 1 inhalation INHALE DAILY [facility] Omeprazole (Omeprazole 40 Mg Capsule.Dr) 40 mg PO DAILY [facility] Ondansetron HCl (Ondansetron Hcl 4 Mg/2 Ml Vial) 4 mg IVPUSH Q8H PRN PRN Reason: Nausea and Vomiting Oxycodone HCl (Oxycodone Hcl Immed Release 5 Mg Tablet) 5 mg PO Q6H PRN PRN Reason: Pain, Severe (Pain Scale 7-10) Last Admin: 05/18/21 23:12 Dose: 5 mg Documented by: Pharmacy Consult (Consult Rx Perform Med Rec) 1 each MISCELLANE ONCE PRN PRN Reason: Consult order Pregabalin (Pregabalin 150 Mg Capsule) 150 mg PO BID [facility] Last Admin: 05/18/21 20:57 Dose: 150 mg Documented by: Sodium Chloride (0.9 % Sodium Chloride Flush 3 Ml Syringe) 3 ml IVFLUSH QSHIFT [facility] Last Admin: 05/19/21 00:36 Dose: 3 ml Documented by: Zolpidem Tartrate (Zolpidem Tartrate 5 Mg Tablet) 5 mg PO BEDTIME PRN PRN Reason: Insomnia Last Admin: 05/18/21 23:12 Dose: 5 mg Documented by: Home Medications Medication Instructions Recorded Confirmed Last Taken Type calcium carbonate 600 mg (1,500 1 tab PO DAILY 03/31/21 05/18/21 05/17/21 History mg)-vitamin D3 200 unit tablet clonazepam 1 mg tablet 1 mg PO BEDTIME PRN 03/31/21 05/18/21 05/17/21 History cyanocobalamin (vitamin B-12) 1,000 mcg PO BEDTIME 03/31/21 05/18/21 05/17/21 History 1,000 mcg tablet docusate sodium 100 mg capsule 100 mg PO BID 03/31/21 05/18/21 05/17/21 History folic acid 1 mg tablet 1 mg PO BID 03/31/21 05/18/21 05/17/21 History gabapentin 100 mg capsule 200 mg PO BEDTIME 03/31/21 05/18/21 05/17/21 History ipratropium 20 mcg-albuterol 100 1 puff INHALATION Q6H PRN 03/31/21 05/18/21 Unknown History mcg/actuation mist for inhalation (Combivent Respimat) methotrexate sodium 2.5 mg tablet 10 mg PO SA 03/31/21 05/18/21 05/13/21 History omeprazole 40 mg capsule,delayed 40 mg PO DAILY 03/31/21 05/18/21 05/17/21 History release oxycodone 5 mg tablet 5 mg PO TID PRN 03/31/21 05/18/21 03/30/21 History umeclidinium 62.5 mcg-vilanterol 1 inh INHALATION DAILY 03/31/21 05/18/21 05/17/21 History 25 mcg/actuation powdr for inhalation (Anoro Ellipta) linaclotide 290 mcg capsule 290 mcg PO BEDTIME 05/18/21 05/18/21 05/17/21 History (Linzess) pregabalin 150 mg capsule 1 cap PO BID 05/18/21 05/18/21 05/17/21 History risedronate 150 mg tablet 1 tab PO QMONTH 05/18/21 05/18/21 05/15/21 History zolpidem 5 mg tablet 1 tab PO BEDTIME PRN 05/18/21 05/18/21 Unknown History Physical Exam Vital Signs: Vital Signs: Last Vital Signs Temp 96.9 F 05/19/21 04:00 Pulse 74 05/19/21 04:00 Resp 16 05/19/21 04:00 BP 133/63 05/19/21 04:00 Pulse Ox 99 05/19/21 04:00 Oxygen Flow Rate 3 05/18/21 07:14 BMI result Body Mass Index 24.5 Const: General: no acute distress and ill appearing Nutritional Appearance: average body habitus Orientation/consciousness: patient oriented x3 Limitations: no limitations HENMT: Head: Yes normal to inspection Ears: hearing grossly normal bilaterally Mouth: Normal oral and palatal mucosa present Eyes: Sclerae: sclerae normal Pupils: Equal, round and reactive pupils present Neck: Neck: Yes normal visual inspection Chest: Chest palpation & inspection: normal inspection of the chest Resp: Effort & Inspection: normal respiratory effort and labored Auscultation: rhonchi (bilateral) Cardio: Palpation: normal PMI Rate: regular rate Rhythm: regular rhythm Heart sounds: S1 normal heart sound present, S2 normal heart sound present and no murmurs GI: Palpation (GI): Soft to palpation, nontender and No hepatosplenomegaly present Auscultation: normal bowel sounds Rectal Exam - Female: deferred Skin: General skin exam: no rashes or lesions noted and other (Skin multiple dry lesions at back, few bruises upper extremity) Neuro: General: patient oriented x3, gait normal and moves all extremities Cranial nerves: Yes Equal, round and reactive pupils present Psych: Appearance: grossly normal Mental Status: mental status grossly normal Results Labs CBC & Chem 7: 05/19/21 05:26 05/19/21 05:26 Labs: Short CBC 05/18/21 05/19/21 Range/Units 08:20 05:26 WBC 11.4 H 10.6 (4.8-10.8) X10*3/uL Hgb 8.4 L 7.7 L (12.0-16.0) g/dl Hct 30.3 L 27.6 L (37.0-47.0) % Plt Count 610 H 513 H (160-400) X10*3/uL [facility] 05/18/21 05/19/21 08:20 05:26 Sodium 141 141 Potassium 3.7 4.4 Chloride 107 107 Carbon Dioxide 28 29 BUN 10 13 Creatinine 0.68 0.65 Calcium 9.4 D 9.1 Liver Function 05/18/21 Range/Units 08:20 Total Bilirubin 0.6 (0.0-1.0) mg/dL Direct Bilirubin 0.3 (0.0-0.5) mg/dL AST 14 (5-31) U/L ALT 10 (0-31) U/L Alkaline Phosphatase 125 H (39-117) U/L Albumin 3.5 (3.5-5.0) g/dL Urine 12/02/21 Range/Units 08:20 Urine Color YELLOW Urine Appearance CLEAR Urine pH 6.5 (5.0-8.0) Ur Specific Ronda <= 1.005 (1.005-1.025) Urine Protein NEG (NEG-TRACE) MG/DL Urine Glucose (UA) NEG (NEG) MG/DL Assessment and Plan (1) Chronic idiopathic constipation: Status: Acute (2) Iron deficiency anemia: Status: Acute (3) Hiatal hernia: Status: Acute 76 YF with COPD and chronic respiratory failure on 3 L of oxygen at baseline, history of left lower extremity DVT on Eliquis, chronic back pain due to multiple vertebral fractures presented to [facility] ED on 05/18/21 with acute onset of shortness of breath without associated fever, chills. Pt noted to have microcytic hypochromic anemia with elevated RDW, studies cw [facility] [address] scan showed a large hiatal hernia with relatively small intra- abdominal stomach and east diverticulosis. Anemia is most likely related to occult UGI blood loss from erosive esophagitis/Gab's ulcers associated with large hiatal hernia. Other possibilities include peptic ulcer disease or less likely a lower GI source. RECOMMENDATIONS: 1. Follow CBC daily 2. UGI to evaluate for GERD and FU on hiatal hernia oncerespiratory status is more stable. 3. Patient is not a candidate for endoscopic studies given advanced COPD. 4. IV iron infusion for anemia and discharge on oral iron - ferrous sulfate once daily. 5. Pt also needs Miralax 1-2 times daily for chronic constipation (likely to get worse with oral iron). Pt has a FU appt in the GI clinic on 06/02/21 with Malena Pina NP Procedures Date of Service Date of Service: 05/19/21
[2021-05-19] MEDS: oxyCODONE HCl Immed Release 5 MG TABLET PO ×3 (07:47→18:15)
[2021-05-19] MEDS: Calcium + Vitamin D 250 MG TABLET 500 MG PO ×2 (07:48→07:49)
[2021-05-19] MEDS: guaiFENesin DM 200/20/10 ML 10 ML SYRUP PO ×3 (07:48→21:27)
[2021-05-19] MEDS: Folic Acid 1 MG TABLET PO (07:48)
[2021-05-19] MEDS: Omeprazole 40 MG CAPSULE.DR PO (07:48)
[2021-05-19] MEDS: Pregabalin 150 MG CAPSULE PO ×2 (07:48→21:27)
[2021-05-19] MEDS: Apixaban 5 MG TABLET PO ×2 (07:48→21:27)
[2021-05-19] MEDS: Docusate Sodium 100 MG CAPSULE PO ×2 (07:49→21:27)
[2021-05-19] MEDS: Albuterol/Iprat 2.5/0.5MG 3 ML AMPUL.NEB INHALE ×2 (08:04→15:08)
[2021-05-19] MEDS: Doxycycline Hyclate 100 MG in 0.9 % Sodium Chloride 250 ML 166.67 MG IV ×2 (08:50→21:29)
--- NOTE | 2021-05-19 10:35 | P.CDIC_ITS ---
CDI Concurrent Query Documentation Clarification: PHYSICIAN'S DOCUMENTATION REQUEST Date of Query: 05/19/21 1036 Patient Name: Elmira Bingham Admit Date: 05/18/21 Dear Doctor, A review of the medical record indicates additional documentation may be needed. Please review below and update the documentation accordingly. Clinical Indicators: Documentation in the record indicates the patient was admitted with a fracture. Risk Factors/Clinical Indicators/Treatments Acute on chronic back pain, fell a couple of weeks ago, coccyx pain. Rheumatoid Arthritis. Old compression fractures T8, T9, T11, T12, L2 vertebra. CXR - acute T4 - T6 vertebral fractures. Neurontin, Pregabalint, Oxycodone, Mi[place], Yylenol Please provide the following additional clarification regarding the fracture: FRACTURE: compression Etiology: * Traumatic * Non-traumatic * Pathologic fracture * Pathologic due to osteoporosis * Pathologic due to other disease: * Unable to determine Encounter: * Initial encounter * Subsequent encounter for routine healing * Subsequent encounter for delayed healing * Subsequent encounter for sequela * Other complication (please specify) * Unable to determine Use of terms such as suspected, likely, concern for, or probable (associated with a specific diagnosis that is being evaluated, monitored, or treated as if it exists) are acceptable and can be coded in the inpatient setting, when documented at the time of discharge. Thank you, Iqra Smith [facility], CDIS Extension: [phone] Please use your independent medical judgment in providing your response. THIS QUERY IS PART OF THE PERMANENT MEDICAL RECORD Provider Response: Other Other Diagnosis: acute and chronic compression fractures, etiology unknonw
--- NOTE | 2021-05-19 11:24 | PC.NURSE ---
Skin assessment completed today. Patient has blanchable redness to bilateral buttocks. Scabs to bilateral arms and legs. No other skin issues or open areas noted at this time.
--- NOTE | 2021-05-19 11:33 | MHC.CLN ---
NUTRITION CONSULT CONSULT FOR RECENT WEIGHT LOSS. PATIENT REPORTED THAT WAS AT REHAB FACILITY AND WEIGHT WAS 109# ONE MONTH AGO. REVIEW OF WEIGHT HX SHOWS TWO WEIGHTS TAKEN 05/18 WITH AVERAGE=57.93 KG. WEIGHTS ON 03/30 AND 03/31 SHOW 10 KG DIFFERENCE AND UNABLE TO VERIFY WEIGHT. OVERALL WEIGHT LOSS X 10 MONTHS=7.9%. WEIGHT LOSS DOES NOT APPEAR SIGNIFICANT. NO KNOWN CAUSAL OF WEIGHT LOSS. PATIENT APPEARED ANXIOUS AT VISIT. ASKED FOR SANDWICH AND ALERTED AID. STATED, I USUALLY EAT A LOT . DOES NOT WANT ENSURE SUPPLEMENT. DIET=REGULAR. PROVIDE FOOD PREFERENCES ABLE. NO ADDITIONAL NUTRITION INTERVENTIONS AT THIS TIME.
--- NOTE | 2021-05-19 12:00 | CA_ITS ---
Transthoracic Echocardiogram Patient (Last, First, Middle): Elmira Bingham A Gender: Female Date of : 1945 Age: 76 Procedure Date: 05/19/2021 Procedure Type: Transthoracic Echocardiogram Location: S3E Height: 152.4 cm Weight: 56.7 kg BSA: 1.53 m2 Heart Rate: bpm BP: 134 / 62 mmHg Pill Coater: Referring MD: Anselmo Hay MD Symptoms: edeam /ro hf Study Quality: Good ECG Rhythm: Sinus Conclusions: - The left ventricular systolic function is normal. The calculated ejection fraction is 56% by biplane method. - The left atrium is severely dilated. - There is moderate tricuspid valve regurgitation. - Moderate pulmonary hypertension is present. Findings Left Ventricle Normal left ventricular cavity size. There is normal left ventricular wall thickness. The left ventricular systolic function is normal. The calculated ejection fraction is 56% by biplane method. There is no evidence of regional wall motion abnormalities. E/E prime ratio is between 8 and 15 consistent with indeterminate filling pressures. Evidence suggests grade I (mild) diastolic dysfunction. Right Ventricle Mildly increased right ventricular cavity size. There is normal right ventricular systolic function. Atria The left atrium is severely dilated. The right atrium is normal in size. Aortic Valve There is a normal trileaflet aortic valve. There is no aortic valve stenosis. There is no aortic valve regurgitation. Mitral Valve The mitral valve appears normal. There is trace mitral valve regurgitation. There is no mitral valve stenosis. Pulmonic Valve The pulmonic valve was not well visualized. Tricuspid Valve Normal tricuspid valve structure. There is moderate tricuspid valve regurgitation. The right ventricular systolic pressure is 54 mmHg. Moderate pulmonary hypertension is present. Great Vessels The aortic annulus and asc aorta are normal in size. Venous The inferior vena cava is normal in size and collapses greater than 50% with inspiration. Pericardium/Pleural There is no evidence of pericardial effusion. Measurements 2D Linear Measurements IVSd: 0.84 0.6-0.9/0.6-1.0 cm LVIDd: 4.75 3.9-5.3/4.2-5.9 cm LVIDd Index: 3.10 2.4-3.2/2.2-3.1 cm/m2 LVIDs: 3.32 2.0-3.6 cm LVPWd: 0.88 0.7-1.1 cm Ao Root: 3.00 2.1-3.5 cm LA Diam: 3.90 2.7-3.8/3.0-4.0 cm LAIDs Index: 2.55 1.5-2.3 cm/m2 LV Mass: 170.48 67-162/88-224 g LV Mass Index: 111.42 43-95/49-115 g/m2 LVOT Diam: 2.20 3.0+(-)1.3 cm 2D Systolic Function EF 4C: 54.10 >55% EF 2C: 62.10 >55% EF BiP: 56.40 >55% Mitral Valve MV Pk E: 0.88 MV PK A: 1.15 MV Decel Time: 222.00 E/A: 0.80 E'Lateral: 9.57 E'Medial: 6.85 E/E' Med: 12.80 E/E' Lat: 9.20 PHT: 65.00 MVA PHT: 3.38 Decel Buchanan: 3.96 Aortic Valve AoV Pk Rashad: 1.64 AoV Mn Rashad: 0.99 AoV VTI: 0.41 AoV Pk Grad: 11.00 Aov Mn Grad: 5.00 TESSIE Cont.VTI: 2.14 LVOT LVOT Pk Rashad: 1.01 LVOT Mn Rashad: 0.66 LVOT VTI: 0.23 LVOT Pk Grad: 4.00 LVOT Mn Grad: 2.00 LVOT Diam: 2.20 LVOT Area: 3.80 Diastolic Function MV Pk E: 0.88 MV Pk A: 1.15 E/A: 0.80 E'Medial: 6.85 E/E' Med: 12.80 E' Laterial: 9.57 E/E' Lat: 9.20 Right Ventricle TAPSE (mm): 24.00 Tricuspid Valve TR Pk Rashad: 3.56 TR Pk Grad: 51.00 RA Press: 3.00 RVSP: 54.00 Great Vessels Aorta Ao Root-2D: 3.00 2.0-3.7 cm Ao Asc: 3.30 2.1-3.4 cm Pulmonary Valve PV Pk Rashad: 1.03 Peak PV Grad: 4.00 Updated in Other Vendor System with Status of Final iTn Jacome MD electronically signed on 05/19/2021 1:57:38 PM with status of Final
--- NOTE | 2021-05-19 15:13 | HO.PM.IMPN ---
Subjective Subjective Date of Service: 05/19/21 Interval History: Hypoxic overnight; placed on NRB Dyspneic; no sputum production; no fever Most of back pain is in tailbone Review of Systems Review of Systems: Yes all other systems are reviewed and are negative Physical Exam Vital Signs: Vital Signs: Last Vital Signs Temp 97.6 F 05/19/21 12:00 Pulse 77 05/19/21 12:00 Resp 16 05/19/21 12:00 BP 126/68 05/19/21 12:00 Pulse Ox 96 05/19/21 12:00 Oxygen Flow Rate 3 05/18/21 07:14 BMI result Body Mass Index 24.5 Gen: dyspneic HEENT: sclera anicteric, moist mucus membranes Neck: supple Lungs: diminished bilaterally Heart: regular rate and rhythm, no murmurs Abd: soft, non-tender, non-distended Ext: no edema Skin: warm/well-perfused Neuro: alert and oriented x3, no focal findings Psych: appropriate affect Objective Data Active Medications Acetaminophen (Acetaminophen 325 Mg Tablet) 650 mg PO Q6H PRN PRN Reason: Pain, Mild (Pain Scale 1-3) Albuterol/Ipratropium (Albuterol/Iprat 2.5/0.5mg 3 Ml Ampul.Neb) 3 ml INHALE Q2H PRN PRN Reason: sob Albuterol/Ipratropium (Albuterol/Iprat 2.5/0.5mg 3 Ml Ampul.Neb) 3 ml INHALE RQ4H WHILE AWAKE [facility] Last Admin: 05/19/21 15:08 Dose: 3 ml Documented by: ALEXANDER Apixaban (Apixaban 5 Mg Tablet) 5 mg PO BID [facility] Last Admin: 05/19/21 07:48 Dose: 5 mg Documented by: NELLY Bisacodyl (Bisacodyl 5 Mg Tablet.) 10 mg PO BEDTIME [facility] Last Admin: 05/18/21 20:58 Dose: 10 mg Documented by: FRANCISCA Calcitonin [place] (Calcitonin,[place],Synth Nasal 3.7 Ml Bottle) 1 spray NOSTRILALT DAILY [facility] Last Admin: 05/19/21 09:56 Dose: Not Given Documented by: ELIZABET Non-Admin Reason: Patient Refused Calcium Carbonate/Cholecalciferol (Calcium + Vitamin D 250 Mg Tablet) 500 mg PO DAILY [facility] Last Admin: 05/19/21 07:49 Dose: 500 mg Documented by: NELLY Clonazepam (Clonazepam 0.5 Mg Tablet) 0.5 mg PO BEDTIME PRN PRN Reason: insomnia Cyanocobalamin (Cyanocobalamin (Vitamin B-12) 1,000 Mcg Tablet) 1,000 mcg PO BEDTIME [facility] Last Admin: 05/18/21 20:58 Dose: 1,000 mcg Documented by: FRANCISCA Docusate Sodium (Docusate Sodium 100 Mg Capsule) 100 mg PO BID [facility] Last Admin: 05/19/21 07:49 Dose: 100 mg Documented by: NELLY Folic Acid (Folic Acid 1 Mg Tablet) 1 mg PO DAILY [facility] Last Admin: 05/19/21 07:48 Dose: 1 mg Documented by: NELLY Gabapentin (Gabapentin 100 Mg Capsule) 200 mg PO BEDTIME [facility] Last Admin: 05/18/21 20:57 Dose: 200 mg Documented by: FRANCISCA Guaifenesin/Dextromethorphan (Guaifenesin Dm 200/20/10 Ml 10 Ml Syrup) 10 ml PO TID [facility] Last Admin: 05/19/21 14:00 Dose: 10 ml Documented by: NELLY Doxycycline Hyclate 100 mg/ (Sodium Chloride) 250 mls @ 166.67 mls/hr IV BID [facility] Last Infusion: 05/19/21 11:50 Dose: 0 mls/hr Documented by: ELIZABET Methylprednisolone Sodium Succinate (Methylprednisolone Sod Succ 40 Mg/Ml Vial) 40 mg IVPUSH Q8H [facility] Last Admin: 05/19/21 07:47 Dose: 40 mg Documented by: NELLY Non-Formulary Medication (Umeclidinium-Vilanterol [Anoro Ellipta]) 1 inhalation INHALE DAILY [facility] Ondansetron HCl (Ondansetron Hcl 4 Mg/2 Ml Vial) 4 mg IVPUSH Q8H PRN PRN Reason: Nausea and Vomiting Oxycodone HCl (Oxycodone Hcl Immed Release 5 Mg Tablet) 5 mg PO Q6H PRN PRN Reason: Pain, Severe (Pain Scale 7-10) Last Admin: 05/19/21 14:01 Dose: 5 mg Documented by: NELLY Pantoprazole Sodium (Pantoprazole Sodium 40 Mg/10 Ml Vial) 40 mg IVPUSH BID@0630,1630 [facility] Pharmacy Consult (Consult Rx Perform Med Rec) 1 each MISCELLANE ONCE PRN PRN Reason: Consult order Pregabalin (Pregabalin 150 Mg Capsule) 150 mg PO BID [facility] Last Admin: 05/19/21 07:48 Dose: 150 mg Documented by: NELLY Sodium Chloride (0.9 % Sodium Chloride Flush 3 Ml Syringe) 3 ml IVFLUSH QSHIFT [facility] Last Admin: 05/19/21 07:49 Dose: Not Given Documented by: NELLY Non-Admin Reason: IV Running Zolpidem Tartrate (Zolpidem Tartrate 5 Mg Tablet) 5 mg PO BEDTIME PRN PRN Reason: Insomnia Last Admin: 05/18/21 23:12 Dose: 5 mg Documented by: FRANCISCA Labs CBC & Chem 7: 05/19/21 05:26 05/19/21 05:26 Labs: Laboratory Results - last 24 hr 05/19/21 05/19/21 05:26 05:26 MCV 70.4 L MCH 19.6 L MCHC 27.9 L RDW 22.4 H Plt Count 513 H MPV 9.8 Absolute Nucleated RBC 0.020 H Nucleated RBC % (auto) 0.2 Anion Gap 9 L Estim Creat Clear Calc 59.9 Estimated GFR > 60 Random Glucose 168 H Calcium 9.1 Microbiology Microbiology Results: Microbiology 05/18/21 Unknown Urine Culture - Preliminary Urine clean catch - Urine castaneda top Gram negative kely 05/18/21 08:50 Blood Culture - Preliminary Blood - Venous No growth after 24 hours. 05/18/21 08:20 Blood Culture - Preliminary Blood - Venous No growth after 24 hours. Assessment and Plan (1) COPD exacerbation: Status: Acute Assessment and Plan: hospital d#2 76yo F with COPD, chronic hypoxic respiratory failure on 3L hO2, prior DVT on apixaban presented with acute dyspnea, admitted for acute/chronic hypoxia + COPD exacerbation also found to have iron deficiency anemia, UTI, and acute T4 + T6 vertebral compression fractures # acute/chronic hypoxic respiratory failure # COPD exacerbation - O2 support- try HFNC, Pulmonology consultation, IV glucocorticoids, scheduled/prn nebulizers, doxycycline d#2 - respiratory virus panel ordered # elevated BNP - TTE pending, got 1 dose furosemide in ED for leg edema [resolved] # UTI - UCx growing GNRs, start ceftriaxone d#1 # iron deficiency anemia - T+S, transfuse if Hb <7 - FOBT ordered - GI consulted. not currently stable for EGD. hx large hiatal hernia. will change to IV PPI, give IV iron, obtain upper GI on 05/22, consult GENERAL PARTNER # acute T4+T6 vertebral compression fractures - complicated by chronic pain due to multiple vertebral fractures s/p vertebroplasty T9-T12 and L2 - calcitonin, APAP, pregabalin, oxycodone 5 mg # somnolence - related to oxycodone 10mg given in ED, resolved. also d/c gabapentin since she is on pregabalin [therapeutic duplication] # chronic LLE DVT - continue apixaban # tobacco abuse - smoking cessation encouraged # rheumatoid arthritis - MTX # VTE ppx - apixaban Quality Stroke Does the patient have a stroke diagnosis?: No VTE Prior VTE?: No VTE Risk Level:: Medical - moderate - high VTE Device Contraindication: N/A - Device Ordered VTE Drug Contraindication: N/A - Med Ordered
--- NOTE | 2021-05-19 15:42 | MHC.CM.PN ---
case management nurse electronic medical record reviewed along with case discussed with jayne nurse and on multiple disciplinary rounds declines to complete health care proxy, lives alone and uses a cane for ambulation and on home oxygen discharge plan 1. [facility] provides 8 hours /week of home health aide hours employed by [facility] uses [facility] declines any short term rehab facility
[2021-05-19 16:00] LABS: Procalcitonin 0.04 ng/mL
[2021-05-19] MEDS: Pantoprazole Sodium 40 MG/10 ML VIAL IVPUSH (16:00)
[2021-05-19] MEDS: cefTRIAXone sodium 1 GM in 0.9 % Sodium Chloride 50 ML IV (16:00)
--- NOTE | 2021-05-19 18:31 | MHC.SL.SWA ---
Speech Pathologist Impression: Risk of Aspiration Oralpharyngeal Dysphagia Risk of Aspiration Due to: History of Pneumonia Dysphasia Diet Status: Downgrade Liquid Consistency and Strategies for Safe Swallow: Liquid Intake Recommendation: Honey Thick Liquid Intake Strategies: Small Sips No Straws Solid Food Consistency: Dietary Recommendations: Pureed (NDD1) Additional Modifications to Solid Foods: Recommend PUREED (NDD1) solids and HONEY THICK liquids, with pills WHOLE or CRUSHED in PUREE. Patient is able to feed herself, but is recommended total 1:1 supervision during PO intake to monitor tolerance and to provide cues/reminders for aspiration precautions. WOOD BARREL RECONDITIONER will continue to follow. Oral Medication Intake: Whole with Puree Compensatory Strategies and Precautions to be Taken for Safe Swallow: Sitting Upright (90 deg) No Straw Small Bites and Sips Rate of Ingestion Change Supervision While Eating and Drinking for Safe Swallow: Total Supervision (1:1) Swallowing Recommended Treatments: Compens. Strategy Educat. Recommendation for Speech: Inpatient Speech Therapy Painter Mirror Clinican/Clinical Fellow: No Supervisory Statement: I have reviewed and agree with the student/clinical fellow's documentation: N/A Speech Language Pathologist: Anna Silver M.A., CCC-WOOD BARREL RECONDITIONER
[2021-05-19] MEDS: Acetaminophen 325 MG TABLET 650 MG PO (21:26)
[2021-05-19] MEDS: bisacodyL 5 MG TABLET.DR 10 MG PO (21:27)
[2021-05-19] MEDS: Cyanocobalamin (Vitamin B-12) 1,000 MCG TABLET 1000 MCG PO (21:27)
[2021-05-19] MEDS: Zolpidem Tartrate 5 MG TABLET PO (21:34)
[2021-05-20] VITALS (16 sets, daily range): BP systolic 101–163; BP diastolic 64–90; PULSE 69–103; RESP 18–24; TEMP 36.1–37.1; O2SAT 83–100
[2021-05-20] MEDS: methylPREDNISolone Sod Succ 40 MG/ML VIAL IVPUSH ×4 (01:37→23:01)
[2021-05-20] MEDS: oxyCODONE HCl Immed Release 5 MG TABLET PO ×4 (04:20→20:32)
--- NOTE | 2021-05-20 04:49 | PC.NURSE ---
Addendum entered by Brooke Pringle RN 05/20/21 04:50: no effect from the oxycodone as of 0450. MD notified that pain continues and is becoming agitated. Due to her agitation she isn't breathing through her nose. Currently on 15L [place] and satting 85-89%. Continuously redirected to breathe through nose. MD ordered morphine for pain. Original Note: pt c/o 8/10 pain to her middle back. Given 5mg prn oxycodone at 0420. Pt complaining of pain in her back and in her leg and will continuously switch between the two when asked where the pain is.
[2021-05-20] MEDS: Pantoprazole Sodium 40 MG/10 ML VIAL IVPUSH ×2 (05:04→16:28)
[2021-05-20] MEDS: Morphine Sulfate 4 MG/ML CARTRIDGE IVPUSH (05:04)
--- NOTE | 2021-05-20 05:43 | PC.NURSE ---
pt satting 80% on 15L [facility]. Respiratory notified and on their way to the bedside. Placed on NRB, o2 sat came up to 100% but did not tolerate mask - became very anxious and teary eyed. Placed back on 15L. Respiratory placing on high flow o2. Pt is very anxious - hyperfocusing on her leg pain, then her back, then demanding ice chips all in the same breath. Morphine and oxycodone to no effect yet. notified.
[2021-05-20] MEDS: clonazePAM 0.5 MG TABLET PO ×2 (06:05→20:33)
--- NOTE | 2021-05-20 06:16 | PC.NURSE ---
pt continuing to be anxious and attempting to jump out of bed multiple times. notified - told this RN to give Klonopin now regardless of it being ordered for insomnia. Pending effect currently. Nursing property supervisor notified - will need 1:1 sitter during the day.
[2021-05-20 07:48] LABS: Hematocrit 27.4 % (37.0-47.0); Hemoglobin 7.6 g/dl (12.0-16.0); Mean Corpuscular HGB Conc 27.7 g/dl (31.0-35.0); Mean Corpuscular Hemoglobin 19.9 pg (27.0-33.0); Mean Corpuscular Volume 71.9 fL (80.0-98.0); Mean Platelet Volume 9.7 fL (9.4-12.3); Platelet Count 490 X10*3/uL (160-400); Red Blood Count 3.81 X10*6/uL (4.20-5.50); Red Cell Distribution Width 22.5 % (11.0-16.0)
[2021-05-20] MEDS: Albuterol/Iprat 2.5/0.5MG 3 ML AMPUL.NEB INHALE ×4 (07:48→20:34)
[2021-05-20 07:49] LABS: VBG Base Excess 7.9 mmol/L; VBG HCO3 34 mmol/L (22-26); VBG pCO2 56 mmHg; VBG pH 7.39 (7.32-7.43); VBG pO2 82 mmHg
[2021-05-20 08:00] LABS: Anion Gap 10 (12-20); Blood Urea Nitrogen 17 mg/dL (9-16); Carbon Dioxide 29 mmol/L (22-29); Chloride 107 mmol/L (96-108); Creatinine Clr Calc Pharmacy 59.9; Estimated Glomerular Filt Rate > 60; Glucose Random 128 mg/dL (60-115); Potassium 4.5 mmol/L (3.3-5.1); Sodium 141 mmol/L (135-145)
[2021-05-20 08:05] LABS: Venous Blood Gas Refer to POC result
[2021-05-20 08:23] LABS: B Type Natriuretic Peptide 343 pg/mL (<100)
[2021-05-20] MEDS: Doxycycline Hyclate 100 MG in 0.9 % Sodium Chloride 250 ML 166.67 MG IV (08:27)
[2021-05-20] MEDS: 0.9 % Sodium Chloride Flush 3 ML SYRINGE IVFLUSH ×3 (08:32→20:33)
[2021-05-20] MEDS: metHOTREXate sodium 2.5 MG TABLET 10 MG PO (10:09)
[2021-05-20] MEDS: Apixaban 5 MG TABLET PO ×2 (10:09→20:32)
[2021-05-20] MEDS: Calcitonin,Salmon,Synth Nasal 3.7 ML BOTTLE 1 SPRAY NOSTRILALT (10:09)
[2021-05-20] MEDS: Calcium + Vitamin D 250 MG TABLET 500 MG PO (10:09)
[2021-05-20] MEDS: Docusate Sodium 100 MG CAPSULE PO ×2 (10:09→20:32)
[2021-05-20] MEDS: Folic Acid 1 MG TABLET PO (10:10)
[2021-05-20] MEDS: guaiFENesin DM 200/20/10 ML 10 ML SYRUP PO ×2 (10:10→20:33)
[2021-05-20] MEDS: polyethylene glycoL 3350 17 GM POWD.PACK PO (10:10)
[2021-05-20] MEDS: Pregabalin 150 MG CAPSULE PO ×2 (10:10→20:32)
--- NOTE | 2021-05-20 10:20 | P.CONPL_ITS ---
History of Present Illness History of Present Illness Consult date: 05/20/21 Requesting physician: Anselmo Hay Reason for consult: dyspnea, cough and hypoxemia Chief complaint: SOB Narrative: I saw this patient this morning for pulmonary consultation. She has been hospitalized since yesterday with a few days history of increased shortness of breath and cough. No fever chills or chest pain. Patient has O2 3 L/minute at home but still get ting short of breath. This patient is known case of bipolar disorder, with chronic pain due to compr ession fractures of the spine and is on narcotic meds. She is not very conversant, so most of the information I have collected from the medical records. Apparently recently she has been admitted it at [facility] then placed at the rehab place, and then discharged home. While at [facility] and in the rehab facility there were events of difficulty in swallowing . A honey thickened diet recommended but at home patient started eating a regular diet. Her modified barium swallow has been abnormal. Patient also smokes a few cigarettes per day. She uses O2 3 L/minute at home. She is mostly in the chair or bed at home denies any recent falls. Past medical history, reviewed from the medical records, and includes the problem of advanced chronic obstructive pulmonary disease, chronic compression fractures of the spine with chronic back pain, peripheral vascular disease and also history of DVT in left lower extremity, now on chronic anticoagulation. Patient also has peripheral neuropathy with impaired gait. Multiple other comorbidities. Review of Systems Review of Systems: Yes Unobtainable due to mental condition (Patient is not very conversant) COUNTS INCLUDE 234 BEDS AT THE [facility] Past Medical History Medical History (Updated 05/20/21 @ 10:33 by Crys Camp MD) Chronic respiratory failure with hypoxia Compression fracture of T9 vertebra COPD (chronic obstructive pulmonary disease) DVT (deep venous thrombosis) Hiatal hernia History of diverticulitis History of treatment for tuberculosis Interstitial lung disease Left rib fracture Opioid abuse Rash Rib pain on left side Rib pain on right side Surgical History Surgical History H/O colonoscopy H/O esophagogastroduodenoscopy Social History Social History Household Members: None Housing: House Do you presently have visiting nurse or other home services: No (blending coordinator daily) Alcohol intake: never Patient Tobacco Use Status: Current everyday Tobacco user Tobacco use type: Cigarette Cigarettes Per Day: 2 Use of substances other than those prescribed or required for medical reasons: No Currently Displaying Signs/Symptoms of Drug Intoxication Withdrawal: No Have you been hit, kicked, punched, or otherwise hurt by someone within the past year? If so, by whom?: No Do you feel safe in your current relationship?: No Current Relationship Is there a partner from a previous relationship who is making you feel unsafe now?: No Are you made to feel afraid or neglected: No Advance Directives: No Advance Directives Information Provided: Yes Do you have thoughts of harming others: None Do you have a plan to hurt others: No Plan Recently lost weight without trying: No How much weight loss: 14-23 pounds Eating poorly because of decreased appetite: No Nutrition screen score: 2 Nutrition Risks: No Nutritional Risk Patient : No : No Poor oral hygiene: No service: No Current occupational status: retired [employer] Allergies Allergy/AdvReac Type Severity Reaction Status Date / Time loratadine [From CLARITIN] Allergy Unknown MOUTH SORE Verified 05/18/21 07:14 Active Medications: Current Medications Acetaminophen (Acetaminophen 325 Mg Tablet) 650 mg PO Q6H PRN PRN Reason: Pain, Mild (Pain Scale 1-3) Last Admin: 05/19/21 21:26 Dose: 650 mg Documented by: Albuterol/Ipratropium (Albuterol/Iprat 2.5/0.5mg 3 Ml Ampul.Neb) 3 ml INHALE Q2H PRN PRN Reason: sob Albuterol/Ipratropium (Albuterol/Iprat 2.5/0.5mg 3 Ml Ampul.Neb) 3 ml INHALE RQ4H WHILE AWAKE [facility] Last Admin: 05/20/21 07:48 Dose: 3 ml Documented by: Apixaban (Apixaban 5 Mg Tablet) 5 mg PO BID [facility] Last Admin: 05/19/21 21:27 Dose: 5 mg Documented by: Bisacodyl (Bisacodyl 5 Mg Tablet.) 10 mg PO BEDTIME [facility] Last Admin: 05/19/21 21:27 Dose: 10 mg Documented by: Calcitonin [place] (Calcitonin,[place],Synth Nasal 3.7 Ml Bottle) 1 spray NOSTRILALT DAILY [facility] Last Admin: 05/19/21 09:56 Dose: Not Given Documented by: Calcium Carbonate/Cholecalciferol (Calcium + Vitamin D 250 Mg Tablet) 500 mg PO DAILY [facility] Last Admin: 05/19/21 07:49 Dose: 500 mg Documented by: Clonazepam (Clonazepam 0.5 Mg Tablet) 0.5 mg PO BEDTIME PRN PRN Reason: insomnia Last Admin: 05/20/21 06:05 Dose: 0.5 mg Documented by: Cyanocobalamin (Cyanocobalamin (Vitamin B-12) 1,000 Mcg Tablet) 1,000 mcg PO BEDTIME [facility] Last Admin: 05/19/21 21:27 Dose: 1,000 mcg Documented by: Docusate Sodium (Docusate Sodium 100 Mg Capsule) 100 mg PO BID [facility] Last Admin: 05/19/21 21:27 Dose: 100 mg Documented by: Folic Acid (Folic Acid 1 Mg Tablet) 1 mg PO DAILY [facility] Last Admin: 05/19/21 07:48 Dose: 1 mg Documented by: Guaifenesin/Dextromethorphan (Guaifenesin Dm 200/20/10 Ml 10 Ml Syrup) 10 ml PO TID [facility] Last Admin: 05/19/21 21:27 Dose: 10 ml Documented by: Doxycycline Hyclate 100 mg/ (Sodium Chloride) 250 mls @ 166.67 mls/hr IV BID [facility] Last Admin: 05/20/21 08:27 Dose: 166.67 mls/hr Documented by: Ferric Sodium Gluconate Complex 125 mg/ Sodium Chloride 110 mls @ 100 mls/hr IV DAILY [facility] Stop: 05/22/21 10:05 Ceftriaxone Sodium 1 gm/ (Sodium Chloride) 50 mls @ 100 mls/hr IV Q24H [facility] Last Infusion: 05/19/21 17:05 Dose: Infused Documented by: Methotrexate (Methotrexate Sodium 2.5 Mg Tablet) 10 mg PO Sa@0900 [facility] Methylprednisolone Sodium Succinate (Methylprednisolone Sod Succ 40 Mg/Ml Vial) 40 mg IVPUSH Q8H [facility] Last Admin: 05/20/21 08:27 Dose: 40 mg Documented by: Non-Formulary Medication (Umeclidinium-Vilanterol [Anoro Ellipta]) 1 inhalation INHALE DAILY [facility] Ondansetron HCl (Ondansetron Hcl 4 Mg/2 Ml Vial) 4 mg IVPUSH Q8H PRN PRN Reason: Nausea and Vomiting Oxycodone HCl (Oxycodone Hcl Immed Release 5 Mg Tablet) 5 mg PO Q6H PRN PRN Reason: Pain, Severe (Pain Scale 7-10) Last Admin: 05/20/21 04:20 Dose: 5 mg Documented by: Pantoprazole Sodium (Pantoprazole Sodium 40 Mg/10 Ml Vial) 40 mg IVPUSH BID@0 630,1630 [facility] Last Admin: 05/20/21 05:04 Dose: 40 mg Documented by: Pharmacy Consult (Consult Rx Perform Med Rec) 1 each MISCELLANE ONCE PRN PRN Reason: Consult order Polyethylene Glycol (Polyethylene Glycol 3350 17 Gm Powd.Pack) 17 gm PO DAILY [facility] Pregabalin (Pregabalin 150 Mg Capsule) 150 mg PO BID [facility] Last Admin: 05/19/21 21:27 Dose: 150 mg Documented by: Sodium Chloride (0.9 % Sodium Chloride Flush 3 Ml Syringe) 3 ml IVFLUSH [facility] Last Admin: 05/20/21 08:32 Dose: 3 ml Documented by: Zolpidem Tartrate (Zolpidem Tartrate 5 Mg Tablet) 5 mg PO BEDTIME PRN PRN Reason: Insomnia Last Admin: 05/19/21 21:34 Dose: 5 mg Documented by: Home Medications Medication Instructions Recorded Confirmed Last Taken Type calcium carbonate 600 mg (1,500 1 tab PO DAILY 03/31/21 05/18/21 05/17/21 History mg)-vitamin D3 200 unit tablet clonazepam 1 mg tablet 1 mg PO BEDTIME PRN 03/31/21 05/18/21 05/17/21 History cyanocobalamin (vitamin B-12) 1,000 mcg PO BEDTIME 03/31/21 05/18/21 05/17/21 History 1,000 mcg tablet docusate sodium 100 mg capsule 100 mg PO BID 03/31/21 05/18/21 05/17/21 History folic acid 1 mg tablet 1 mg PO BID 03/31/21 05/18/21 05/17/21 History gabapentin 100 mg capsule 200 mg PO BEDTIME 03/31/21 05/18/21 05/17/21 History ipratropium 20 mcg-albuterol 100 1 puff INHALATION Q6H PRN 03/31/21 05/18/21 Unknown History mcg/actuation mist for inhalation (Combivent Respimat) methotrexate sodium 2.5 mg tablet 10 mg PO SA 03/31/21 05/18/21 05/13/21 History omeprazole 40 mg capsule,delayed 40 mg PO DAILY 03/31/21 05/18/21 05/17/21 History release oxycodone 5 mg tablet 5 mg PO TID PRN 03/31/21 05/18/21 03/30/21 History umeclidinium 62.5 mcg-vilanterol 1 inh INHALATION DAILY 03/31/21 05/18/21 05/17/21 History 25 mcg/actuation powdr for inhalation (Anoro Ellipta) linaclotide 290 mcg capsule 290 mcg PO BEDTIME 05/18/21 05/18/21 05/17/21 History (Linzess) pregabalin 150 mg capsule 1 cap PO BID 05/18/21 05/18/21 05/17/21 History risedronate 150 mg tablet 1 tab PO QMONTH 05/18/21 05/18/21 05/15/21 History zolpidem 5 mg tablet 1 tab PO BEDTIME PRN 05/18/21 05/18/21 Unknown History Physical Exam Vital Signs: Vital Signs: Last Vital Signs Temp 97.0 F 05/20/21 07:46 Pulse 69 05/20/21 07:46 Resp 18 05/20/21 07:48 BP 136/76 05/20/21 07:46 Pulse Ox 97 05/20/21 07:46 Oxygen Flow Rate 3 05/18/21 07:14 BMI result Body Mass Index 24.5 Patient is currently on high-flow oxygen, does not seem to be in any acute distress Const: General: comfortable, no acute distress, alert and awake HENMT: Head: Yes normal to inspection General nose exam: No nasal polyps present and No nasal discharge present Face and sinus: Yes sinuses nontender Mouth: oropharynx normal Throat: Yes posterior oropharynx normal Eyes: General: appearance normal, both eyes and all related structures Neck: Neck: Yes normal visual inspection, Yes no lymphadenopathy, Yes trachea midline and Yes no JVD Thyroid: Thyroid normal Chest: Chest palpation & inspection: normal inspection of the chest, normal palpation of entire chest wall and no tenderness Resp: Other: Breath sounds distant with prolonged expiratory phase. Inspiratory crackles heard on both sides especially over the lower lobe areas. No wheezing. Cardio: Palpation: normal PMI Rate: regular rate Rhythm: regular rhythm Heart sounds: no gallops and no murmurs GI: Palpation (GI): Soft to palpation, nontender, No hepatosplenomegaly present and no masses Auscultation: normal bowel sounds Back/Spine/Pelvis: Other: [place] lumbar spine, somewhat stiff, range of motion cannot be determined. There is a superficial also her over the thoraco lumbar area. Neuro: Other: Could not be assessed Extrem: General: Yes normal to inspection, Yes no clubbing, cyanosis or edema and Yes no calf tenderness Psych: Other: Patient id is alert but does not converse much at this time Appearance: grossly normal Results Laboratory Findings CBC and BMP: 05/20/21 07:24 05/20/21 07:24 Abnormal lab findings: Abnormal Labs 05/18/21 05/18/21 05/18/21 08:10 08:20 08:20 WBC 11.4 H RBC Hgb 8.4 L Hct 30.3 L MCV 71.1 L MCH 19.7 L MCHC 27.7 L RDW 22.8 H Plt Count 610 H Neut % (Auto) 76.4 H Lymph % (Auto) 11.5 L [place] # (Auto) 1.3 H Abs Immat Gran (auto) 0.05 H Absolute Neuts (auto) 8.7 H Absolute Nucleated RBC ABG pO2 at Pt Temp 57 L ABG pO2 (Temp Correct 56 L ABG HCO3 28 H VBG HCO3 Anion Gap 10 L BUN Random Glucose Iron 12 L TIBC 431 H % Saturation 3 L Alkaline Phosphatase 125 H B-Natriuretic Peptide Ur Leukocyte Esterase Urine WBC 05/18/21 05/18/21 05/19/21 08:20 08:20 05:26 WBC RBC 3.92 L Hgb 7.7 L Hct 27.6 L MCV 70.4 L MCH 19.6 L MCHC 27.9 L RDW 22.4 H Plt Count 513 H Neut % (Auto) Lymph % (Auto) [place] # (Auto) Abs Immat Gran (auto) Absolute Neuts (auto) Absolute Nucleated RBC 0.020 H ABG pO2 at Pt Temp ABG pO2 (Temp Correct ABG HCO3 VBG HCO3 Anion Gap BUN Random Glucose Iron TIBC % Saturation Alkaline Phosphatase B-Natriuretic Peptide 182 H Ur Leukocyte Esterase 3+ H Urine WBC 5-9 H 05/19/21 05/20/21 05/20/21 05:26 07:24 07:24 WBC 14.0 H RBC 3.81 L Hgb 7.6 L Hct 27.4 L MCV 71.9 L MCH 19.9 L MCHC 27.7 L RDW 22.5 H Plt Count 490 H Neut % (Auto) Lymph % (Auto) [place] # (Auto) Abs Immat Gran (auto) Absolute Neuts (auto) Absolute Nucleated RBC ABG pO2 at Pt Temp ABG pO2 (Temp Correct ABG HCO3 VBG HCO3 Anion Gap 9 L 10 L BUN 17 H Random Glucose 168 H 128 H Iron TIBC % Saturation Alkaline Phosphatase B-Natriuretic Peptide Ur Leukocyte Esterase Urine WBC 05/20/21 05/20/21 07:24 07:42 WBC RBC Hgb Hct MCV MCH MCHC RDW Plt Count Neut % (Auto) Lymph % (Auto) [place] # (Auto) Abs Immat Gran (auto) Absolute Neuts (auto) Absolute Nucleated RBC ABG pO2 at Pt Temp ABG pO2 (Temp Correct ABG HCO3 VBG HCO3 34 H Anion Gap BUN Random Glucose Iron TIBC % Saturation Alkaline Phosphatase B-Natriuretic Peptide 343 H Ur Leukocyte Esterase Urine WBC Microbiology: Microbiology 05/18/21 Unknown Urine clean catch - Urine castaneda top Urine Culture - Final Pseudomonas aeruginosa 05/18/21 08:50 Blood - Venous Blood Culture - Preliminary No growth after 24 hours. 05/18/21 08:20 Blood - Venous Blood Culture - Preliminary No growth after 24 hours. Diagnostic Findings Chest x-ray: report reviewed and image reviewed CT scan - chest: report reviewed and image reviewed Assessment and Plan (1) COPD exacerbation: Status: Acute This patient to has been a long-time smoker, with chronic hypoxemia, clinically does have advanced chronic obstructive pulmonary disease. At present she has an acute exacerbation, may be due to acute pneumonia . TX: Agree with the current treatment, with IV Solu-Medrol for a few days then change to oral prednisone, DuoNeb updraft Q is 4-6 hours while awake and p.r.n.. O2 by high-flow and then downgrade to Ventimask or nasal cannula , as tolerated. (2) Aspiration pneumonia: Status: Acute Patient does have documented diagnosis of impaired swallowing. She is a high risk case for pulmonary aspirations. Current increased interstitial disease may be due to recent pulmonary aspiration. Treatment with IV steroids, DuoNeb updrafts, oxygen and course of doxycycline plus ceftriaxone is fine. Aspiration precautions to be continued. (3) Interstitial lung disease: Status: Acute Patient has picture of chronic reticulo-nodular pulmonary disease, in left upper lobe and right mid and lower lobes. Radiologic picture is somewhat worsened in the right lower lobe and right middle lung. Again this is probably due to recurrent micro aspirations, and long-time smoking. Current treatment with IV Solu-Medrol followed by E a short course of oral prednisone will be fine. Procedures Date of Service Date of Service: 05/20/21
[2021-05-20] MEDS: Sodium Ferric Gluconat/Sucrose 125 MG in 0.9 % Sodium Chloride 100 ML 100 MG IV (10:31)
[2021-05-20 10:38] LABS: Adenovirus PCR Not Detected (Not Detect.); Bordetella parapertussis PCR Not Detected (Not Detect.); Bordetella pertussis PCR Not Detected (Not Detect.); Chlamydia pneumoniae PCR Not Detected (Not Detect.); Coronavirus 229E PCR Not Detected (Not Detect.); Coronavirus HKU1 PCR Not Detected (Not Detect.); Coronavirus NL63 PCR Not Detected (Not Detect.); Coronavirus OC43 PCR Not Detected (Not Detect.); Human metapneumovirus PCR Not Detected (Not Detect.); Influenza A PCR Not Detected (Not Detect.); Influenza B PCR Not Detected (Not Detect.); Mycoplasma pneumoniae PCR Not Detected (Not Detect.); Parainfluenza 1 PCR Not Detected (Not Detect.); Parainfluenza 2 PCR Not Detected (Not Detect.); Parainfluenza 3 PCR Not Detected (Not Detect.); Parainfluenza 4 PCR Not Detected (Not Detect.); RSV PCR Not Detected (Not Detect.); Rhino/Enterovirus PCR Not Detected (Not Detect.); SARS-CoV-2 PCR Not Detected (Not Detect.)
--- NOTE | 2021-05-20 11:21 | HO.PM.IMPN ---
Subjective Subjective Date of Service: 05/20/21 Interval History: stepped up [place] [facility] [place] dyspnea improved non-adherent with aspiration precautions per [employer]OM [employer] no fever no chest pain Review of Systems Review of Systems: Yes all other systems are reviewed and are negative Physical Exam Vital Signs: Vital Signs: Last Vital Signs Temp 97.0 F 05/20/21 07:46 Pulse 69 05/20/21 07:46 Resp 24 H 05/20/21 11:08 BP 136/76 05/20/21 07:46 Pulse Ox 97 05/20/21 07:46 Oxygen Flow Rate 3 05/18/21 07:14 BMI result Body Mass Index 24.5 Gen: NAD, on HFNC at 50Lpm 68% fiO2 HEENT: sclera anicteric, moist mucus membranes Neck: supple Lungs: diminished bilaterally, scattered expiratory wheezes and inspiratory crackles Heart: regular rate and rhythm, no murmurs Abd: soft, non-tender, non-distended Ext: no edema Skin: warm/well-perfused Neuro: alert and oriented x3, no focal findings Psych: appropriate affect Objective Data Active Medications Acetaminophen (Acetaminophen 325 Mg Tablet) 650 mg PO Q6H PRN PRN Reason: Pain, Mild (Pain Scale 1-3) Last Admin: 05/19/21 21:26 Dose: 650 mg Documented by: JACKY Albuterol/Ipratropium (Albuterol/Iprat 2.5/0.5mg 3 Ml Ampul.Neb) 3 ml INHALE Q2H PRN PRN Reason: sob Albuterol/Ipratropium (Albuterol/Iprat 2.5/0.5mg 3 Ml Ampul.Neb) 3 ml INHALE RQ4H WHILE AWAKE [facility] Last Admin: 05/20/21 11:07 Dose: 3 ml Documented by: HEATHER Apixaban (Apixaban 5 Mg Tablet) 5 mg PO BID [facility] Last Admin: 05/20/21 10:09 Dose: 5 mg Documented by: DONTE Bisacodyl (Bisacodyl 5 Mg Tablet.) 10 mg PO BEDTIME [facility] Last Admin: 05/19/21 21:27 Dose: 10 mg Documented by: JACKY Calcitonin [place] (Calcitonin,[place],Synth Nasal 3.7 Ml Bottle) 1 spray NOSTRILALT DAILY [facility] Last Admin: 05/20/21 10:09 Dose: 1 spray Documented by: DONTE Calcium Carbonate/Cholecalciferol (Calcium + Vitamin D 250 Mg Tablet) 500 mg PO DAILY [facility] Last Admin: 05/20/21 10:09 Dose: 500 mg Documented by: DONTE Clonazepam (Clonazepam 0.5 Mg Tablet) 0.5 mg PO BEDTIME PRN PRN Reason: insomnia Last Admin: 05/20/21 06:05 Dose: 0.5 mg Documented by: JACKY Cyanocobalamin (Cyanocobalamin (Vitamin B-12) 1,000 Mcg Tablet) 1,000 mcg PO BEDTIME [facility] Last Admin: 05/19/21 21:27 Dose: 1,000 mcg Documented by: JACKY Docusate Sodium (Docusate Sodium 100 Mg Capsule) 100 mg PO BID [facility] Last Admin: 05/20/21 10:09 Dose: 100 mg Documented by: DONTE Folic Acid (Folic Acid 1 Mg Tablet) 1 mg PO DAILY [facility] Last Admin: 05/20/21 10:10 Dose: 1 mg Documented by: DONTE Guaifenesin/Dextromethorphan (Guaifenesin Dm 200/20/10 Ml 10 Ml Syrup) 10 ml PO TID [facility] Last Admin: 05/20/21 10:10 Dose: 10 ml Documented by: DONTE Doxycycline Hyclate 100 mg/ (Sodium Chloride) 250 mls @ 166.67 mls/hr IV BID [facility] Last Infusion: 05/20/21 10:37 Dose: 0 mls/hr Documented by: DONTE Ferric Sodium Gluconate Complex 125 mg/ Sodium Chloride 110 mls @ 100 mls/hr IV DAILY [facility] Stop: 05/22/21 10:05 Last Admin: 05/20/21 10:31 Dose: 100 mls/hr Documented by: DONTE Ceftriaxone Sodium 1 gm/ (Sodium Chloride) 50 mls @ 100 mls/hr IV Q24H [facility] Last Infusion: 05/19/21 17:05 Dose: 0 mls/hr Documented by: ELIZABET Methotrexate (Methotrexate Sodium 2.5 Mg Tablet) 10 mg PO Sa@0900 [facility] Last Admin: 05/20/21 10:09 Dose: 10 mg Documented by: DONTE Methylprednisolone Sodium Succinate (Methylprednisolone Sod Succ 40 Mg/Ml Vial) 40 mg IVPUSH Q8H [facility] Last Admin: 05/20/21 08:27 Dose: 40 mg Documented by: DONTE Non-Formulary Medication (Umeclidinium-Vilanterol [Anoro Ellipta]) 1 inhalation INHALE DAILY [facility] Ondansetron HCl (Ondansetron Hcl 4 Mg/2 Ml Vial) 4 mg IVPUSH Q8H PRN PRN Reason: Nausea and Vomiting Oxycodone HCl (Oxycodone Hcl Immed Release 5 Mg Tablet) 5 mg PO Q6H PRN PRN Reason: Pain, Severe (Pain Scale 7-10) Last Admin: 05/20/21 10:25 Dose: 5 mg Documented by: DONTE Pantoprazole Sodium (Pantoprazole Sodium 40 Mg/10 Ml Vial) 40 mg IVPUSH BID@0630,1630 [facility] Last Admin: 05/20/21 05:04 Dose: 40 mg Documented by: AJCKY Pharmacy Consult (Consult Rx Perform Med Rec) 1 each MISCELLANE ONCE PRN PRN Reason: Consult order Polyethylene Glycol (Polyethylene Glycol 3350 17 Gm Powd.Pack) 17 gm PO DAILY [facility] Last Admin: 05/20/21 10:10 Dose: 17 gm Documented by: DONTE Pregabalin (Pregabalin 150 Mg Capsule) 150 mg PO BID [facility] Last Admin: 05/20/21 10:10 Dose: 150 mg Documented by: DONTE Sodium Chloride (0.9 % Sodium Chloride Flush 3 Ml Syringe) 3 ml IVFLUSH QSHIFT [facility] Last Admin: 05/20/21 08:32 Dose: 3 ml Documented by: DONTE Zolpidem Tartrate (Zolpidem Tartrate 5 Mg Tablet) 5 mg PO BEDTIME PRN PRN Reason: Insomnia Last Admin: 05/19/21 21:34 Dose: 5 mg Documented by: JACKY Labs CBC & Chem 7: 05/20/21 07:24 05/20/21 07:24 Labs: Laboratory Results - last 24 hr 05/19/21 05/20/21 05/20/21 05:43 07:24 07:24 MCV 71.9 L MCH 19.9 L MCHC 27.7 L RDW 22.5 H Plt Count 490 H MPV 9.7 Absolute Nucleated RBC 0.000 Nucleated RBC % (auto) 0.0 VBG pH VBG pCO2 VBG pO2 VBG HCO3 VBG O2 Saturation VBG Base Excess Anion Gap 10 L Estim Creat Clear Calc 59.9 Estimated GFR > 60 Random Glucose 128 H Calcium 9.0 B-Natriuretic Peptide Procalcitonin 0.04 Blood Type Antibody Screen 05/20/21 05/20/21 05/20/21 07:24 07:24 07:42 MCV MCH MCHC RDW Plt Count MPV Absolute Nucleated RBC Nucleated RBC % (auto) VBG pH 7.39 VBG pCO2 56 VBG pO2 82 VBG HCO3 34 H VBG O2 Saturation 96.0 VBG Base Excess 7.9 Anion Gap Estim Creat Clear Calc Estimated GFR Random Glucose Calcium B-Natriuretic Peptide 343 H Procalcitonin Blood Type A Positive Antibody Screen NEGATIVE Microbiology Microbiology Results: Microbiology 05/18/21 08:50 Blood Culture - Preliminary Blood - Venous No growth after 48 hours. 05/18/21 08:20 Blood Culture - Preliminary Blood - Venous No growth after 48 hours. 05/18/21 Unknown Urine Culture - Final Urine clean catch - Urine castaneda top Pseudomonas aeruginosa Assessment and Plan (1) COPD exacerbation: Status: Acute Assessment and Plan: hospital d#3 76yo F with COPD, chronic hypoxic respiratory failure on 3L hO2, prior DVT on apixaban presented with acute dyspnea, admitted for acute/chronic hypoxia + COPD exacerbation also found to have iron deficiency anemia, UTI, and acute T4 + T6 vertebral compression fractures # acute/chronic hypoxic respiratory failure # COPD exacerbation # ILD - Pulmonology consultated, wean off HFNC as tolerated, continue IV glucocorticoids, scheduled/prn nebulizers, doxycycline d#3 -> change to levofloxacin for UTI treatment - likely recurrent microaspiration; see below - respiratory virus panel ordered # elevated BNP - TTE pending, got 1 dose furosemide in ED for leg edema [resolved] # UTI - UCx growing Pseudomonas aeruginosa, change ceftriaxone d#2 to levofloxacin # iron deficiency anemia - T+S, transfuse if Hb <7 - FOBT ordered- pending - GI consulted. not stable for EGD. hx large hiatal hernia. continue IV PPI, IV iron, obtain upper GI on 05/22 # chronic aspiration - per [employer]OM [employer]ER: Per MD note, patient has history of PNA and dysphagia. She had MBSS at [facility] February 2021 which showed aspiration with thin liquid, deep penetration with nectar thick liquid, no aspiration or penetration with honey thick liquid, flash penetration with applesauce/pudding. Patient was placed on a pureed diet, which patient had continued at rehab facility after discharge. Per MD note, patient resumed consumption of regular solids and liquids after discharge from rehab despite recc for pureed food. She was therefore referred for outpatient services here with us but did not show up and is now hospitalized here. Patient is telling me, I only choked because the chicken was dry at that place. Patient denies difficulty swallowing, but acknowledges that she was previously on thickened liquids, stating, I hate this stuff. Patient seems to display an aversion to thickened liquids and limited insight to her dysphagia. I explained the observations made from MBSS 02/2021 at [facility]. Patient then stated several times that she understood. However, compliance to these recommendations is very questionable going forward, as patient has not been compliant after her discharge from rehab. Recommend she continue recommendations made after her MBSS. PUREED (NDD1) solids and HONEY THICK liquids, with pills WHOLE or CRUSHED in PUREE. Patient is able to feed herself, but is recommended total 1:1 supervision during PO intake to monitor tolerance and to provide cues/reminders for aspiration precautions. [employer]ER will continue to follow. # acute T4+T6 vertebral compression fractures - complicated by chronic pain due to multiple vertebral fractures s/p vertebroplasty T9-T12 and L2 - calcitonin, APAP, pregabalin, oxycodone 5 mg # somnolence - related to oxycodone 10mg given in ED, resolved. also d/c gabapentin since she is on pregabalin [therapeutic duplication] # chronic LLE DVT - continue apixaban # tobacco abuse - smoking cessation encouraged # rheumatoid arthritis - MTX # VTE ppx - apixaban # dispo -PT eval Quality Stroke Does the patient have a stroke diagnosis?: No VTE Prior VTE?: No VTE Risk Level:: Medical - moderate - high VTE Device Contraindication: N/A - Device Ordered VTE Drug Contraindication: N/A - Med Ordered
[2021-05-20] MEDS: bisacodyL 5 MG TABLET.DR 10 MG PO (20:32)
[2021-05-20] MEDS: Cyanocobalamin (Vitamin B-12) 1,000 MCG TABLET 1000 MCG PO (20:33)
[2021-05-20] MEDS: Zolpidem Tartrate 5 MG TABLET PO (23:01)
[2021-05-21] VITALS (13 sets, daily range): BP systolic 106–147; BP diastolic 53–89; PULSE 71–100; RESP 18–22; TEMP 36.1–37.2; O2SAT 81–99
[2021-05-21] MEDS: oxyCODONE HCl Immed Release 5 MG TABLET PO ×3 (04:46→20:10)
[2021-05-21] MEDS: Pantoprazole Sodium 40 MG/10 ML VIAL IVPUSH ×2 (04:46→16:56)
[2021-05-21 06:47] LABS: Hematocrit 28.5 % (37.0-47.0); Hemoglobin 7.9 g/dl (12.0-16.0); Mean Corpuscular HGB Conc 27.7 g/dl (31.0-35.0); Mean Corpuscular Hemoglobin 19.4 pg (27.0-33.0); Mean Platelet Volume 9.8 fL (9.4-12.3); NRBC Pct Auto 0.2 /100WBC (0.0-0.2); Platelet Count 482 X10*3/uL (160-400); Red Blood Count 4.07 X10*6/uL (4.20-5.50); Red Cell Distribution Width 22.5 % (11.0-16.0); Venous Blood Gas Refer to POC result; White Blood Count 19.1 X10*3/uL (4.8-10.8)
[2021-05-21 06:48] LABS: VBG Base Excess 7.7 mmol/L; VBG HCO3 31 mmol/L (22-26); VBG pCO2 42 mmHg; VBG pH 7.48 (7.32-7.43); VBG pO2 188 mmHg
[2021-05-21 07:07] LABS: Anion Gap 10 (12-20); Blood Urea Nitrogen 14 mg/dL (9-16); Calcium 9.3 mg/dL (8.4-10.2); Carbon Dioxide 29 mmol/L (22-29); Chloride 106 mmol/L (96-108); Creatinine Clr Calc Pharmacy 69.6; Estimated Glomerular Filt Rate > 60; Glucose Random 88 mg/dL (60-115); Potassium 4.5 mmol/L (3.3-5.1); Sodium 140 mmol/L (135-145)
[2021-05-21 07:51] LABS: Procalcitonin 0.03 ng/mL
[2021-05-21] MEDS: Albuterol/Iprat 2.5/0.5MG 3 ML AMPUL.NEB INHALE ×4 (08:01→18:58)
[2021-05-21] MEDS: levoFLOXacin/D5W 750 MG/150 ML PIGGYBACK 100 MG IV (08:30)
[2021-05-21] MEDS: guaiFENesin DM 200/20/10 ML 10 ML SYRUP PO ×2 (08:33→22:33)
[2021-05-21] MEDS: Acetaminophen 325 MG TABLET 650 MG PO (08:33)
[2021-05-21] MEDS: Docusate Sodium 100 MG CAPSULE PO ×2 (08:33→22:32)
[2021-05-21] MEDS: Folic Acid 1 MG TABLET PO (08:33)
[2021-05-21] MEDS: Calcium + Vitamin D 250 MG TABLET 500 MG PO (08:33)
[2021-05-21] MEDS: Pregabalin 150 MG CAPSULE PO ×2 (08:33→22:32)
[2021-05-21] MEDS: Apixaban 5 MG TABLET PO ×2 (08:33→22:32)
[2021-05-21] MEDS: methylPREDNISolone Sod Succ 40 MG/ML VIAL IVPUSH ×2 (08:34→16:56)
[2021-05-21] MEDS: 0.9 % Sodium Chloride Flush 3 ML SYRINGE IVFLUSH ×2 (08:34→16:57)
[2021-05-21] MEDS: polyethylene glycoL 3350 17 GM POWD.PACK PO (08:34)
[2021-05-21] MEDS: Calcitonin,Salmon,Synth Nasal 3.7 ML BOTTLE 1 SPRAY NOSTRILALT (11:28)
[2021-05-21] MEDS: Sodium Ferric Gluconat/Sucrose 125 MG in 0.9 % Sodium Chloride 100 ML 100 MG IV (11:53)
--- NOTE | 2021-05-21 14:14 | P.PNIM_ITS ---
Subjective Subjective Date of Service: 05/21/21 Interval History: C/o rib pain Cough improved but still short of breath No fever Review of Systems Review of Systems: Yes all other systems are reviewed and are negative Physical Exam Vital Signs: Vital Signs: Last Vital Signs Temp 98.2 F 05/21/21 12:00 Pulse 92 05/21/21 12:00 Resp 22 H 05/21/21 12:00 BP 122/66 05/21/21 12:00 Pulse Ox 91 L 05/21/21 12:00 Oxygen Flow Rate 3 05/18/21 07:14 BMI result Body Mass Index 24.5 Gen: mildly tachypneic, on HFNC at 50Lpm 70% fiO2 HEENT: sclera anicteric, moist mucus membranes Neck: supple Lungs: diminished bilaterally, scattered expiratory wheezes and inspiratory crackles Heart: regular rate and rhythm, no murmurs Abd: soft, non-tender, non-distended Ext: no edema Skin: warm/well-perfused Neuro: alert and oriented x3, no focal findings Psych: appropriate affect Objective Data Active Medications Acetaminophen (Acetaminophen 325 Mg Tablet) 650 mg PO Q6H PRN PRN Reason: Pain, Mild (Pain Scale 1-3) Last Admin: 05/21/21 08:33 Dose: 650 mg Documented by: MICKEY Albuterol/Ipratropium (Albuterol/Iprat 2.5/0.5mg 3 Ml Ampul.Neb) 3 ml INHALE Q2H PRN PRN Reason: sob Albuterol/Ipratropium (Albuterol/Iprat 2.5/0.5mg 3 Ml Ampul.Neb) 3 ml INHALE RQ4H WHILE AWAKE [facility] Last Admin: 05/21/21 11:32 Dose: 3 ml Documented by: JOSE Apixaban (Apixaban 5 Mg Tablet) 5 mg PO BID [facility] Last Admin: 05/21/21 08:33 Dose: 5 mg Documented by: MICKEY Bisacodyl (Bisacodyl 5 Mg Tablet.) 10 mg PO BEDTIME [facility] Last Admin: 05/20/21 20:32 Dose: 10 mg Documented by: RONALD Calcitonin [place] (Calcitonin,[place],Synth Nasal 3.7 Ml Bottle) 1 spray NOSTRILALT DAILY [facility] Last Admin: 05/21/21 11:28 Dose: 1 spray Documented by: MICKEY Calcium Carbonate/Cholecalciferol (Calcium + Vitamin D 250 Mg Tablet) 500 mg PO DAILY [facility] Last Admin: 05/21/21 08:33 Dose: 500 mg Documented by: MICKEY Clonazepam (Clonazepam 0.5 Mg Tablet) 0.5 mg PO BEDTIME PRN PRN Reason: insomnia Last Admin: 05/20/21 20:33 Dose: 0.5 mg Documented by: ANTTONY Cyanocobalamin (Cyanocobalamin (Vitamin B-12) 1,000 Mcg Tablet) 1,000 mcg PO BEDTIME [facility] Last Admin: 05/20/21 20:33 Dose: 1,000 mcg Documented by: ANTTONY Docusate Sodium (Docusate Sodium 100 Mg Capsule) 100 mg PO BID [facility] Last Admin: 05/21/21 08:33 Dose: 100 mg Documented by: MICKEY Ferrous Sulfate (Ferrous Sulfate 324 Mg Tablet.Dr) 324 mg PO BIDWM [facility] Folic Acid (Folic Acid 1 Mg Tablet) 1 mg PO DAILY [facility] Last Admin: 05/21/21 08:33 Dose: 1 mg Documented by: MICKEY Guaifenesin/Dextromethorphan (Guaifenesin Dm 200/20/10 Ml 10 Ml Syrup) 10 ml PO TID [facility] Last Admin: 05/21/21 08:33 Dose: 10 ml Documented by: MICKEY Ferric Sodium Gluconate Complex 125 mg/ Sodium Chloride 110 mls @ 100 mls/hr IV DAILY [facility] Stop: 05/22/21 10:05 Last Infusion: 05/21/21 13:04 Dose: 0 mls/hr Documented by: MICKEY Levofloxacin (Levaquin) 750 mg in 150 mls @ 100 mls/hr IV Q24H [facility] Last Infusion: 05/21/21 11:30 Dose: 0 mls/hr Documented by: MICKEY Methotrexate (Methotrexate Sodium 2.5 Mg Tablet) 10 mg PO Sa@0900 [facility] Last Admin: 05/20/21 10:09 Dose: 10 mg Documented by: DONTE Methylprednisolone Sodium Succinate (Methylprednisolone Sod Succ 40 Mg/Ml Vial) 40 mg IVPUSH Q8H [facility] Last Admin: 05/21/21 08:34 Dose: 40 mg Documented by: MICKEY Morphine Sulfate (Morphine Sulfate 2 Mg/Ml Cartridge) 2 mg IVPUSH Q4H PRN; Protocol PRN Reason: Pain, Severe (Pain Scale 7-10) Non-Formulary Medication (Umeclidinium-Vilanterol [Anoro Ellipta]) 1 inhalation INHALE DAILY [facility] Ondansetron HCl (Ondansetron Hcl 4 Mg/2 Ml Vial) 4 mg IVPUSH Q8H PRN PRN Reason: Nausea and Vomiting Oxycodone HCl (Oxycodone Hcl Immed Release 5 Mg Tablet) 5 mg PO Q6H PRN PRN Reason: Pain, Severe (Pain Scale 7-10) Last Admin: 05/21/21 11:25 Dose: 5 mg Documented by: MICKEY Pantoprazole Sodium (Pantoprazole Sodium 40 Mg/10 Ml Vial) 40 mg IVPUSH BID@0630,1630 [facility] Last Admin: 05/21/21 04:46 Dose: 40 mg Documented by: RONALD Pharmacy Consult (Consult Rx Perform Med Rec) 1 each MISCELLANE ONCE PRN PRN Reason: Consult order Polyethylene Glycol (Polyethylene Glycol 3350 17 Gm Powd.Pack) 17 gm PO DAILY [facility] Last Admin: 05/21/21 08:34 Dose: 17 gm Documented by: MICKEY Pregabalin (Pregabalin 150 Mg Capsule) 150 mg PO BID [facility] Last Admin: 05/21/21 08:33 Dose: 150 mg Documented by: MICKEY Sodium Chloride (0.9 % Sodium Chloride Flush 3 Ml Syringe) 3 ml IVFLUSH QSHIFT [facility] Last Admin: 05/21/21 08:34 Dose: 3 ml Documented by: MICKEY Zolpidem Tartrate (Zolpidem Tartrate 5 Mg Tablet) 5 mg PO BEDTIME PRN PRN Reason: Insomnia Last Admin: 05/20/21 23:01 Dose: 5 mg Documented by: RONALD Labs CBC & Chem 7: 05/21/21 06:30 05/21/21 06:30 Labs: Laboratory Results - last 24 hr 05/21/21 05/21/21 05/21/21 06:30 06:30 06:30 MCV 70.0 L MCH 19.4 L MCHC 27.7 L RDW 22.5 H Plt Count 482 H MPV 9.8 Absolute Nucleated RBC 0.030 H Nucleated RBC % (auto) 0.2 VBG pH VBG pCO2 VBG pO2 VBG HCO3 VBG O2 Saturation VBG Base Excess Anion Gap 10 L Estim Creat Clear Calc 69.6 Estimated GFR > 60 Random Glucose 88 Calcium 9.3 Procalcitonin 0.03 05/21/21 06:41 MCV MCH MCHC RDW Plt Count MPV Absolute Nucleated RBC Nucleated RBC % (auto) VBG pH 7.48 H VBG pCO2 42 VBG pO2 188 VBG HCO3 31 H VBG O2 Saturation 99.0 VBG Base Excess 7.7 Anion Gap Estim Creat Clear Calc Estimated GFR Random Glucose Calcium Procalcitonin Impressions Chest X-Ray 05/21/21 08:50 IMPRESSION: Increasing bibasilar opacities, right greater than left, with probable small amount of pleural fluid, and regions of bilateral airways inflammation. Microbiology Microbiology Results: Microbiology 05/18/21 08:50 Blood Culture - Preliminary Blood - Venous No growth after 48 hours. 05/18/21 08:20 Blood Culture - Preliminary Blood - Venous No growth after 48 hours. Echocardiogram Echocardiogram Results: TTE 05/19/21 - The left ventricular systolic function is normal.? The ? calculated ejection fraction is 56% by biplane method. ? - The left atrium is severely dilated. ? - There is moderate tricuspid valve regurgitation. ? - Moderate pulmonary hypertension is present.? Assessment and Plan (1) COPD exacerbation: Status: Acute Assessment and Plan: hospital d#4 76yo F with COPD, chronic hypoxic respiratory failure on 3L hO2, prior DVT on apixaban presented with acute dyspnea, admitted for acute/chronic hypoxia + COPD exacerbation also found to have iron deficiency anemia, UTI, and acute T4 + T6 vertebral compression fractures # acute/chronic hypoxic respiratory failure # COPD exacerbation # ILD # PNA - Pulmonology consulted, wean off HFNC as tolerated, continue IV glucocorticoids, scheduled/prn nebulizers, levofloxacin d#1 [was on doxycycline x3d] - likely recurrent microaspiration; see below - respiratory virus panel negative - PCT low, BCx negative at 48 hr - check Legionella + pneumococcal UAGs - ID consult for worsening PNA # acute/chronic HFpEF - got 1 dose of furosemide in ED. recheck BNP in am but does not appear overtly fluid overloaded # UTI - UCx growing Pseudomonas aeruginosa, levofloxacin d#1 # iron deficiency anemia - T+S, transfuse if Hb <7 - FOBT ordered- pending - GI consulted. not stable for EGD. hx large hiatal hernia. continue IV PPI, IV iron, obtain upper GI on 05/22 # chronic aspiration - per [employer]: Per MD note, patient has history of PNA and dysphagia. She had MBSS at [facility] February 2021 which showed aspiration with thin liquid, deep penetration with nectar thick liquid, no aspiration or penetration with honey thick liquid, flash penetration with applesauce/pudding. Patient was placed on a pureed diet, which patient had continued at rehab facility after discharge. Per MD note, patient resumed consumption of regular solids and liquids after discharge from rehab despite recc for pureed food. She was therefore referred for outpatient services here with us but did not show up and is now hospitalized here. Patient is telling me, I only choked because the chicken was dry at that place. Patient denies difficulty swallowing, but acknowledges that she was previously on thickened liquids, stating, I hate this stuff. Patient seems to display an aversion to thickened liquids and limited insight to her dysphagia. I explained the observations made from MBSS 02/2021 at [facility]. Patient then stat ed several times that she understood. However, compliance to these recommendations is very questionable going forward, as patient has not been compliant after her discharge from rehab. Recommend she continue recommendations made after her MBSS. PUREED (NDD1) solids and HONEY THICK liquids, with pills WHOLE or CRUSHED in PUREE. Patient is able to feed herself, but is recommended total 1:1 supervision during PO intake to monitor tolerance and to provide cues/reminders for aspiration precautions. [employer] will continue to follow. # acute T4+T6 vertebral compression fractures - complicated by chronic pain due to multiple vertebral fractures s/p vertebroplasty T9-T12 and L2 - calcitonin, APAP, pregabalin, oxycodone, prn morphine # somnolence - related to oxycodone 10mg given in ED, resolved. also d/c gabapentin since she is on pregabalin [therapeutic duplication] # chronic LLE DVT - continue apixaban # tobacco abuse - smoking cessation encouraged # rheumatoid arthritis - MTX # VTE ppx - apixaban # dispo -PT eval Quality Stroke Does the patient have a stroke diagnosis?: No VTE Prior VTE?: No VTE Risk Level:: Medical - moderate - high VTE Device Contraindication: N/A - Device Ordered VTE Drug Contraindication: N/A - Med Ordered
[2021-05-21] MEDS: Morphine Sulfate 2 MG/ML CARTRIDGE IVPUSH (16:56)
[2021-05-21] MEDS: Cyanocobalamin (Vitamin B-12) 1,000 MCG TABLET 1000 MCG PO (22:32)
[2021-05-21] MEDS: clonazePAM 0.5 MG TABLET PO (22:32)
[2021-05-21] MEDS: Zolpidem Tartrate 5 MG TABLET PO (22:32)
[2021-05-21] MEDS: bisacodyL 5 MG TABLET.DR 10 MG PO (22:32)
[2021-05-22] VITALS (19 sets, daily range): BP systolic 104–145; BP diastolic 51–72; PULSE 73–94; RESP 18–20; TEMP 36.3–37.2; O2SAT 90–100
[2021-05-22] MEDS: methylPREDNISolone Sod Succ 40 MG/ML VIAL IVPUSH ×2 (02:05→08:54)
[2021-05-22] MEDS: 0.9 % Sodium Chloride Flush 3 ML SYRINGE IVFLUSH ×4 (02:05→22:45)
[2021-05-22] MEDS: Morphine Sulfate 2 MG/ML CARTRIDGE IVPUSH ×3 (02:13→16:15)
[2021-05-22] MEDS: oxyCODONE HCl Immed Release 5 MG TABLET PO ×3 (03:38→22:39)
[2021-05-22 05:38] LABS: Hematocrit 28.5 % (37.0-47.0); Mean Corpuscular HGB Conc 28.1 g/dl (31.0-35.0); Mean Corpuscular Hemoglobin 19.4 pg (27.0-33.0); Mean Platelet Volume 10.2 fL (9.4-12.3); NRBC Pct Auto 0.1 /100WBC (0.0-0.2); Platelet Count 449 X10*3/uL (160-400); Red Blood Count 4.13 X10*6/uL (4.20-5.50); White Blood Count 20.4 X10*3/uL (4.8-10.8)
[2021-05-22 05:54] LABS: Anion Gap 10 (12-20); Blood Urea Nitrogen 12 mg/dL (9-16); Calcium 9.5 mg/dL (8.4-10.2); Carbon Dioxide 31 mmol/L (22-29); Chloride 104 mmol/L (96-108); Creatinine Clr Calc Pharmacy 70.9; Estimated Glomerular Filt Rate > 60; Glucose Random 116 mg/dL (60-115); Potassium 4.6 mmol/L (3.3-5.1); Sodium 140 mmol/L (135-145)
[2021-05-22 05:57] LABS: B Type Natriuretic Peptide 154 pg/mL (<100)
[2021-05-22] MEDS: Pantoprazole Sodium 40 MG/10 ML VIAL IVPUSH ×2 (06:33→15:27)
[2021-05-22] MEDS: Albuterol/Iprat 2.5/0.5MG 3 ML AMPUL.NEB INHALE ×4 (08:42→19:41)
[2021-05-22] MEDS: Apixaban 5 MG TABLET PO ×2 (08:54→22:45)
[2021-05-22] MEDS: Docusate Sodium 100 MG CAPSULE PO ×2 (08:54→22:44)
[2021-05-22] MEDS: Folic Acid 1 MG TABLET PO (08:54)
[2021-05-22] MEDS: Pregabalin 150 MG CAPSULE PO ×2 (08:54→22:44)
[2021-05-22] MEDS: guaiFENesin DM 200/20/10 ML 10 ML SYRUP PO ×3 (08:54→22:43)
[2021-05-22] MEDS: Calcium + Vitamin D 250 MG TABLET 500 MG PO (08:54)
[2021-05-22] MEDS: levoFLOXacin/D5W 750 MG/150 ML PIGGYBACK 100 MG IV (08:55)
[2021-05-22] MEDS: Sodium Ferric Gluconat/Sucrose 125 MG in 0.9 % Sodium Chloride 100 ML 100 MG IV (10:46)
--- NOTE | 2021-05-22 11:03 | PC.NURSE ---
Skin/wound assessment completed. Patient has scattrered scabs and scratch abbott on arms and legs. Also has blanchable redness to buttocks. 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
--- NOTE | 2021-05-22 13:50 | MHC.CM.PN ---
per rounds pt has increased pain no dc date planned at this time
--- NOTE | 2021-05-22 16:10 | HO.PM.IMPN ---
Subjective Subjective Date of Service: 05/23/21 Interval History: Complaining of right-sided mid back pain, uncomfortable in sitting position received IV morphine and oxycodone still complaining of pain, denies fever, chills, denies shortness of breath. Review of Systems General no headache, no dizziness, no fever chills.? CVS no chest pain, no palpitation.? Respiratory no shortness of breath,mild cough Gastrointestinal no nausea , no vomiting, no abdominal pain Yes all other systems are reviewed and are negative Physical Exam Vital Signs: Vital Signs: Last Vital Signs Temp 97.8 F 05/22/21 15:02 Pulse 77 05/22/21 15:20 Resp 18 05/22/21 15:21 BP 104/51 L 05/22/21 15:02 Pulse Ox 90 L 05/22/21 15:02 Oxygen Flow Rate 3 05/18/21 07:14 BMI result Body Mass Index 24.5 General: In mild distress due to pain,on HFNC at 50Lpm 70% fiO2 Neck: supple, no JVD Lungs: diminished bilaterally, scattered expiratory wheezes and inspiratory crackles Heart: regular rate and rhythm, no murmurs Abd: soft, non-tender, non-distended Ext: no edema Skin: warm/well-perfused Neuro: alert and oriented x3, no focal findings Psych: appropriate affect Objective Data Active Medications Acetaminophen (Acetaminophen 325 Mg Tablet) 650 mg PO Q6H PRN PRN Reason: Pain, Mild (Pain Scale 1-3) Last Admin: 05/21/21 08:33 Dose: 650 mg Documented by: MICKEY Albuterol/Ipratropium (Albuterol/Iprat 2.5/0.5mg 3 Ml Ampul.Neb) 3 ml INHALE Q2H PRN PRN Reason: sob Albuterol/Ipratropium (Albuterol/Iprat 2.5/0.5mg 3 Ml Ampul.Neb) 3 ml INHALE RQ4H WHILE AWAKE [facility] Last Admin: 05/22/21 15:20 Dose: 3 ml Documented by: ALEXANDER Apixaban (Apixaban 5 Mg Tablet) 5 mg PO BID [facility] Last Admin: 05/22/21 08:54 Dose: 5 mg Documented by: CRISTIANA Bisacodyl (Bisacodyl 5 Mg Tablet.) 10 mg PO BEDTIME [facility] Last Admin: 05/21/21 22:32 Dose: 10 mg Documented by: ANTHONY Calcitonin [place] (Calcitonin,[place],Synth Nasal 3.7 Ml Bottle) 1 spray NOSTRILALT DAILY [facility] Last Admin: 05/22/21 09:03 Dose: Not Given Documented by: CRISTIANA Non-Admin Reason: Patient Refused Calcium Carbonate/Cholecalciferol (Calcium + Vitamin D 250 Mg Tablet) 500 mg PO DAILY [facility] Last Admin: 05/22/21 08:54 Dose: 500 mg Documented by: CRISTIANA Clonazepam (Clonazepam 0.5 Mg Tablet) 0.5 mg PO BEDTIME PRN PRN Reason: insomnia Last Admin: 05/21/21 22:32 Dose: 0.5 mg Documented by: ANTHONY Cyanocobalamin (Cyanocobalamin (Vitamin B-12) 1,000 Mcg Tablet) 1,000 mcg PO BEDTIME [facility] Last Admin: 05/21/21 22:32 Dose: 1,000 mcg Documented by: ANTHONY Docusate Sodium (Docusate Sodium 100 Mg Capsule) 100 mg PO BID [facility] Last Admin: 05/22/21 08:54 Dose: 100 mg Documented by: CRISTIANA Ferrous Sulfate (Ferrous Sulfate 324 Mg Tablet.) 324 mg PO BIDWM [facility] Folic Acid (Folic Acid 1 Mg Tablet) 1 mg PO DAILY [facility] Last Admin: 05/22/21 08:54 Dose: 1 mg Documented by: CRISTIANA Guaifenesin/Dextromethorphan (Guaifenesin Dm 200/20/10 Ml 10 Ml Syrup) 10 ml PO TID [facility] Last Admin: 05/22/21 15:26 Dose: 10 ml Documented by: VJ Levofloxacin (Levaquin) 750 mg in 150 mls @ 100 mls/hr IV Q24H [facility] Last Infusion: 05/22/21 10:30 Dose: 0 mls/hr Documented by: CRISTIANA Lidocaine (Lidocaine 4 % Patch Adh..Patch) 1 patch TRANSDERMA DAILY [facility]; Protocol Methotrexate (Methotrexate Sodium 2.5 Mg Tablet) 10 mg PO Sa@0900 [facility] Last Admin: 05/20/21 10:09 Dose: 10 mg Documented by: HO.IGLESM Methylprednisolone Sodium Succinate (Methylprednisolone Sod Succ 40 Mg/Ml Vial) 40 mg IVPUSH Q8H [facility] Last Admin: 05/22/21 08:54 Dose: 40 mg Documented by: CRISTIANA Morphine Sulfate (Morphine Sulfate 2 Mg/Ml Cartridge) 2 mg IVPUSH Q4H PRN; Protocol PRN Reason: Pain, Severe (Pain Scale 7-10) Last Admin: 05/22/21 08:01 Dose: 2 mg Documented by: CRISTIANA Non-Formulary Medication (Umeclidinium-Vilanterol [Anoro Ellipta]) 1 inhalation INHALE DAILY [facility] Ondansetron HCl (Ondansetron Hcl 4 Mg/2 Ml Vial) 4 mg IVPUSH Q8H PRN PRN Reason: Nausea and Vomiting Oxycodone HCl (Oxycodone Hcl Immed Release 5 Mg Tablet) 5 mg PO Q6H PRN PRN Reason: Pain, Severe (Pain Scale 7-10) Last Admin: 05/22/21 09:38 Dose: 5 mg Documented by: NELLY Pantoprazole Sodium (Pantoprazole Sodium 40 Mg/10 Ml Vial) 40 mg IVPUSH BID@0630,1630 [facility] Last Admin: 05/22/21 15:27 Dose: 40 mg Documented by: VJ Pharmacy Consult (Consult Rx Perform Med Rec) 1 each MISCELLANE ONCE PRN PRN Reason: Consult order Polyethylene Glycol (Polyethylene Glycol 3350 17 Gm Powd.Pack) 17 gm PO DAILY [facility] Last Admin: 05/22/21 09:12 Dose: Not Given Documented by: CRISTIANA Non-Admin Reason: Patient Refused Pregabalin (Pregabalin 150 Mg Capsule) 150 mg PO BID [facility] Last Admin: 05/22/21 08:54 Dose: 150 mg Documented by: CRISTIANA Sodium Chloride (0.9 % Sodium Chloride Flush 3 Ml Syringe) 3 ml IVFLUSH QSHIFT [facility] Last Admin: 05/22/21 15:32 Dose: 3 ml Documented by: VJ Zolpidem Tartrate (Zolpidem Tartrate 5 Mg Tablet) 5 mg PO BEDTIME PRN PRN Reason: Insomnia Last Admin: 05/21/21 22:32 Dose: 5 mg Documented by: ANTHONY Labs CBC & Chem 7: 05/22/21 05:10 05/22/21 05:10 Labs: Laboratory Results - last 24 hr 05/22/21 05/22/21 05/22/21 05:10 05:10 05:10 MCV 69.0 L MCH 19.4 L MCHC 28.1 L RDW 23.0 H Plt Count 449 H MPV 10.2 Absolute Nucleated RBC 0.020 H Nucleated RBC % (auto) 0.1 Anion Gap 10 L Estim Creat Clear Calc 70.9 Estimated GFR > 60 Random Glucose 116 H Calcium 9.5 B-Natriuretic Peptide 154 H Assessment and Plan (1) Interstitial lung disease: Status: Acute (2) Hiatal hernia: Status: Acute (3) Iron deficiency anemia: Status: Acute (4) COPD exacerbation: Status: Acute (5) Chronic idiopathic constipation: Status: Acute Assessment and Plan: 76yo F with COPD, chronic hypoxic respiratory failure on 3L hO2, prior DVT on apixaban presented with acute dyspnea, admitted for acute/chronic hypoxia + COPD exacerbation,also found to have iron deficiency anemia, UTI, and acute T4 + T6 vertebral compression fractures #acute/chronic hypoxic respiratory failure due to COPD exacerbation, ILD and PNA Persistent hypoxia, patient restless due to back pain but denies shortness of breath On HFNC will wean gradually,continue IV glucocorticoids, scheduled/prn nebulizers, levofloxacin d#2 [was on doxycycline x3d] - likely recurrent microaspiration since does not follow aspiration precaution - respiratory virus panel negative - PCT low, BCx negative at 48 hr - urine Legionella pending, pneumococcal UAGs not detected - seen by ID she recommend to treat with Levaquin for total 10 days for left base pneumonia. # acute/chronic HFpEF - appears euvolemic, got 1 dose of furosemide in ED.? BNP improved from 343 to 154 # UTI - UCx growing Pseudomonas aeruginosa, levofloxacin d#2 # Iron deficiency anemia - hematocrit stable around 28 , will transfuse if Hb <7 - FOBT ordered - seen by GI,not stable for EGD.? hx large hiatal hernia, since on high-flow oxygen cannot undergo upper GI series, will change to by mouth PPI, on IV iron, follow clinical course # chronic aspiration - being followed by speech therapy they continue to recommend pureed solids and honey thick liquids with close supervision and aspiration precautions # acute T4+T6 vertebral compression fractures - complicated by chronic pain due to multiple vertebral fractures s/p vertebroplasty T9-T12 and L2 - continue calcitonin, APAP, pregabalin, oxycodone, prn morphine will add lidocaine patch # somnolence - related to oxycodone 10mg given in ED, resolved.? gabapentin discontinued, since she is on pregabalin [therapeutic duplication] # chronic LLE DVT - continue apixaban # tobacco abuse - smoking cessation encouraged # rheumatoid arthritis - MTX # VTE ppx - apixaban # dispo -PT eval Quality Stroke Does the patient have a stroke diagnosis?: No VTE Prior VTE?: No VTE Risk Level:: Medical - moderate - high VTE Device Contraindication: N/A - Device Ordered VTE Drug Contraindication: N/A - Med Ordered
--- NOTE | 2021-05-22 17:32 | MHC.SL.SWA ---
Speech Pathologist Impression: Risk of Aspiration Oralpharyngeal Dysphagia Risk of Aspiration Due to: History of Pneumonia Dysphasia Diet Status: No Change Liquid Consistency and Strategies for Safe Swallow: Liquid Intake Recommendation: Honey Thick Liquid Intake Strategies: No Straws Solid Food Consistency: Dietary Recommendations: Pureed (NDD1) Patient has poor compliance to recommendations for diet modification. RN reports that patient was more motivated to eat modified textures this morning, and reported to RN that she had made a deal that she may have ice chips if she agrees to eat the food and liquid on her tray (pureed/honey thick). When LAN/WAN ENGINEER arrived, patient expressed these same wishes, and stated, Look I ate all the food on my tray. Patient stated that she is very upset that her ice chips were taken away, and appeared very distraught, in tears. LAN/WAN ENGINEER provided extensive education to patient and her friend, who is reported to be caring for her. LAN/WAN ENGINEER explained results of MBSS from [facility], risks of aspiration, rationale for recommended pureed/honey thick diet. Patient stated that she now understands and wishes someone had explained this to her before taking things away from her. Patient describes a significant aversion to the modified consistencies, but stated that she would eat pureed food and honey thick liquid (juices & other drinks) only if she is able to have her ice chips. Patient had eaten >75% of food and drink items on her tray. Her orange juice appeared to be pudding thick consistency. Patient stated, I am not able to drink this. LAN/WAN ENGINEER explained that liquids are prepared correctly as ordered in the kitchen. However, thickened liquids will continue to thicken over time as food is transported to the patient's room and throughout the meal. LAN/WAN ENGINEER mixed thickener packet with juice and demonstrated that the teaspoon should remain upright in cup when liquid is honey thick, and liquid should not create viscous bolus on teaspoon, but rather slip off spoon like honey. Patient tolerated small bites of pudding and drank honey thick liquid by cup with no overt s/s of aspiration. She stated, This is much better...I can drink this. LAN/WAN ENGINEER typically recommends having cup of water at bedside to mix with juice as it thickens to achieve desired honey thick consistency. Recommend patient have 1:1 assistance and supervision with this accommodation. Recommend ice chips by request with TOTAL SUPERVISION and strict oral care beforehand. LAN/WAN ENGINEER reiterated to patient that she will likely aspirate on water from ice. Patient verbalized understanding. When asked what might happen when patient has ice chips, she stated, I know I will aspirate. She stated that she was willing to take the risk of aspiration. To reduce risk of pneumonia, recommend oral care before presentation of ice chips each time that they are requested. Patient's friend located patient's mouthwash, toothbrush, and swabs. MD and RN notified. Additional Modifications to Solid Foods: LAN/WAN ENGINEER continues to provide extensive education RE: results of MBSS from [facility], risks of aspiration, and rationale for recommended PUREED (NDD1) solids and HONEY THICK liquids (crushed pills). Patient describes aversion to recommended consistencies, but will agree to modified meals as long as she can have ice chips. Ice chips by request. Patient must have proper oral care prior to presentation of ice chips and total supervision with all PO intake, including ice chips. Oral Medication Intake: Whole or Crushed with Puree Compensatory Strategies and Precautions to be Taken for Safe Swallow: Sitting Upright (90 deg) No Straw Small Bites and Sips Rate of Ingestion Change Supervision While Eating and Drinking for Safe Swallow: Total Supervision (1:1) Swallowing Recommended Treatments: Compens. Strategy Educat. Recommendation for Speech: Inpatient Speech Therapy Comment: Patient is admitted for COPD exacerbation with hypoxia also found to have iron deficiency anemia, UTI, and acute T4 and T6 vertebral compression fractures. Patient's history is significant for COPD, DVT, chronic respiratory failure with hypoxia, compression fracture of T9 vertebra, hiatal hernia, diverticulitis, tx for tuberculosis, left rib fracture, opioid abuse, rash, rib pain. LAN/WAN ENGINEER reviewed documentation [facility]. Per MD note, patient has history of PNA and dysphagia. She had MBSS at [facility] February 2021 which showed aspiration with thin liquid, deep penetration with nectar thick liquid, no aspiration or penetration with honey thick liquid, flash penetration with applesauce/pudding. Patient was placed on a pureed diet, which patient had continued at rehab facility after discharge. Per MD note, patient resumed consumption of regular solids and liquids after discharge from rehab. She was therefore referred for outpatient services here at [facility] Patient was scheduled for outpatient [facility] this [facility], but did not show up due to this hospitalization. Club Former Clinican/Clinical Fellow: No Supervisory Statement: I have reviewed and agree with the student/clinical fellow's documentation: N/A Speech Language Pathologist: Anna Silver M.A., CCC-LAN/WAN ENGINEER
--- NOTE | 2021-05-22 21:54 | W.PM.IDCN ---
History of Present Illness Data of Consult Service Date: 05/22/21 Requesting physician: Tu Henderson Primary Care Provider: Carlos Alberto PINON Reason for consult: shortness of breath She presents with shortness of breath and cough. She has COPD and on 3 liters oxygen She is on high flow oximizer. She is on honey thick diet Review of Systems Review of Systems: Yes all other systems are reviewed and are negative PMFSH Past Medical History Medical History Chronic respiratory failure with hypoxia Compression fracture of T9 vertebra COPD (chronic obstructive pulmonary disease) DVT (deep venous thrombosis) Hiatal hernia History of diverticulitis History of treatment for tuberculosis Interstitial lung disease Left rib fracture Opioid abuse Rash Rib pain on left side Rib pain on right side Surgical History Surgical History H/O colonoscopy H/O esophagogastroduodenoscopy Social History Social History Household Members: None Housing: House Do you presently have visiting nurse or other home services: No (belt changer daily) Alcohol intake: never Patient Tobacco Use Status: Current everyday Tobacco user Tobacco use type: Cigarette Cigarettes Per Day: 2 Use of substances other than those prescribed or required for medical reasons: No Currently Displaying Signs/Symptoms of Drug Intoxication Withdrawal: No Have you been hit, kicked, punched, or otherwise hurt by someone within the past year? If so, by whom?: No Do you feel safe in your current relationship?: No Current Relationship Is there a partner from a previous relationship who is making you feel unsafe now?: No Are you made to feel afraid or neglected: No Advance Directives: No Advance Directives Information Provided: Yes Do you have thoughts of harming others: None Do you have a plan to hurt others: No Plan Recently lost weight without trying: No How much weight loss: 14-23 pounds Eating poorly because of decreased appetite: No Nutrition screen score: 2 Nutrition Risks: No Nutritional Risk Patient : No : No Poor oral hygiene: No service: No Current occupational status: retired Meds Allergies Allergy/AdvReac Type Severity Reaction Status Date / Time loratadine [From CLARITIN] Allergy Unknown MOUTH SORE Verified 05/18/21 07:14 Active Medications: Current Medications Acetaminophen (Acetaminophen 325 Mg Tablet) 650 mg PO Q6H PRN PRN Reason: Pain, Mild (Pain Scale 1-3) Last Admin: 05/21/21 08:33 Dose: 650 mg Documented by: Albuterol/Ipratropium (Albuterol/Iprat 2.5/0.5mg 3 Ml Ampul.Neb) 3 ml INHALE Q2H PRN PRN Reason: sob Albuterol/Ipratropium (Albuterol/Iprat 2.5/0.5mg 3 Ml Ampul.Neb) 3 ml INHALE RQ4H WHILE [facility]WAKE [facility] Last Admin: 05/22/21 19:41 Dose: 3 ml Documented by: Apixaban (Apixaban 5 Mg Tablet) 5 mg PO BID [facility] Last Admin: 05/22/21 08:54 Dose: 5 mg Documented by: Bisacodyl (Bisacodyl 5 Mg Tablet.) 10 mg PO BEDTIME [facility] Last Admin: 05/21/21 22:32 Dose: 10 mg Documented by: Calcitonin [place] (Calcitonin,[place],Synth Nasal 3.7 Ml Bottle) 1 spray NOSTRILALT DAILY [facility] Last Admin: 05/22/21 09:03 Dose: Not Given Documented by: Calcium Carbonate/Cholecalciferol (Calcium + Vitamin D 250 Mg Tablet) 500 mg PO DAILY [facility] Last Admin: 05/22/21 08:54 Dose: 500 mg Documented by: Clonazepam (Clonazepam 0.5 Mg Tablet) 0.5 mg PO BEDTIME PRN PRN Reason: insomnia Last Admin: 05/21/21 22:32 Dose: 0.5 mg Documented by: Cyanocobalamin (Cyanocobalamin (Vitamin B-12) 1,000 Mcg Tablet) 1,000 mcg PO BEDTIME [facility] Last Admin: 05/21/21 22:32 Dose: 1,000 mcg Documented by: Docusate Sodium (Docusate Sodium 100 Mg Capsule) 100 mg PO BID [facility] Last Admin: 05/22/21 08:54 Dose: 100 mg Documented by: Ferrous Sulfate (Ferrous Sulfate 324 Mg Tablet.) 324 mg PO BIDWM [facility] Folic Acid (Folic Acid 1 Mg Tablet) 1 mg PO DAILY [facility] Last Admin: 05/22/21 08:54 Dose: 1 mg Documented by: Gabapentin (Gabapentin 100 Mg Capsule) 200 mg PO BEDTIME [facility] Guaifenesin/Dextromethorphan (Guaifenesin Dm 200/20/10 Ml 10 Ml Syrup) 10 ml PO TID [facility] Last Admin: 05/22/21 15:26 Dose: 10 ml Documented by: Levofloxacin (Levaquin) 750 mg in 150 mls @ 100 mls/hr IV Q24H [facility] Last Infusion: 05/22/21 10:30 Dose: Infused Documented by: Lidocaine (Lidocaine 4 % Patch Adh..Patch) 1 patch TRANSDERMA DAILY [facility]; Protocol Methotrexate (Methotrexate Sodium 2.5 Mg Tablet) 10 mg PO Sa@0900 [facility] Last Admin: 05/20/21 10:09 Dose: 10 mg Documented by: Morphine Sulfate (Morphine Sulfate 2 Mg/Ml Cartridge) 2 mg IVPUSH Q4H PRN; Protocol PRN Reason: Pain, Severe (Pain Scale 7-10) Last Admin: 05/22/21 16:15 Dose: 2 mg Documented by: Non-Formulary Medication (Umeclidinium-Vilanterol [Anoro Ellipta]) 1 inhalation INHALE DAILY [facility] Omeprazole (Omeprazole 20 Mg Capsule.Dr) 20 mg PO BID@0630,1630 [facility] Ondansetron HCl (Ondansetron Hcl 4 Mg/2 Ml Vial) 4 mg IVPUSH Q8H PRN PRN Reason: Nausea and Vomiting Oxycodone HCl (Oxycodone Hcl Immed Release 5 Mg Tablet) 5 mg PO Q6H PRN PRN Reason: Pain, Severe (Pain Scale 7-10) Last Admin: 05/22/21 09:38 Dose: 5 mg Documented by: Pharmacy Consult (Consult Rx Perform Med Rec) 1 each MISCELLANE ONCE PRN PRN Reason: Consult order Polyethylene Glycol (Polyethylene Glycol 3350 17 Gm Powd.Pack) 17 gm PO DAILY [facility] Last Admin: 05/22/21 09:12 Dose: Not Given Documented by: Prednisone (Prednisone 5 Mg Tablet) 15 mg PO DAILY [facility] Pregabalin (Pregabalin 150 Mg Capsule) 150 mg PO BID [facility] Last Admin: 05/22/21 08:54 Dose: 150 mg Documented by: Sodium Chloride (0.9 % Sodium Chloride Flush 3 Ml Syringe) 3 ml IVFLUSH QSHIFT [facility] Last Admin: 05/22/21 15:32 Dose: 3 ml Documented by: Sucralfate (Sucralfate Oral Suspension 1 Gm/10 Ml Oral.Susp) 1 gm PO QIDACHS [facility] Zolpidem Tartrate (Zolpidem Tartrate 5 Mg Tablet) 5 mg PO BEDTIME PRN PRN Reason: Insomnia Last Admin: 05/21/21 22:32 Dose: 5 mg Documented by: Home Medications Medication Instructions Recorded Confirmed Last Taken Type calcium carbonate 600 mg (1,500 1 tab PO DAILY 03/31/21 05/18/21 05/17/21 History mg)-vitamin D3 200 unit tablet clonazepam 1 mg tablet 1 mg PO BEDTIME PRN 03/31/21 05/18/21 05/17/21 History cyanocobalamin (vitamin B-12) 1,000 mcg PO BEDTIME 03/31/21 05/18/21 05/17/21 History 1,000 mcg tablet docusate sodium 100 mg capsule 100 mg PO BID 03/31/21 05/18/21 05/17/21 History folic acid 1 mg tablet 1 mg PO BID 03/31/21 05/18/21 05/17/21 History gabapentin 100 mg capsule 200 mg PO BEDTIME 03/31/21 05/18/21 05/17/21 History ipratropium 20 mcg-albuterol 100 1 puff INHALATION Q6H PRN 03/31/21 05/18/21 Unknown History mcg/actuation mist for inhalation (Combivent Respimat) methotrexate sodium 2.5 mg tablet 10 mg PO SA 03/31/21 05/18/21 05/13/21 History omeprazole 40 mg capsule,delayed 40 mg PO DAILY 03/31/21 05/18/21 05/17/21 History release oxycodone 5 mg tablet 5 mg PO TID PRN 03/31/21 05/18/21 03/30/21 History umeclidinium 62.5 mcg-vilanterol 1 inh INHALATION DAILY 03/31/21 05/18/21 05/17/21 History 25 mcg/actuation powdr for inhalation (Anoro Ellipta) linaclotide 290 mcg capsule 290 mcg PO BEDTIME 05/18/21 05/18/21 05/17/21 History (Linzess) pregabalin 150 mg capsule 1 cap PO BID 05/18/21 05/18/21 05/17/21 History risedronate 150 mg tablet 1 tab PO QMONTH 05/18/21 05/18/21 05/15/21 History zolpidem 5 mg tablet 1 tab PO BEDTIME PRN 05/18/21 05/18/21 Unknown History Physical Exam Vital Signs: Vital Signs: Last Vital Signs Temp 98.5 F 05/22/21 19:02 Pulse 77 05/22/21 19:40 Resp 18 05/22/21 19:38 BP 109/72 05/22/21 19:02 Pulse Ox 95 05/22/21 19:02 Oxygen Flow Rate 3 05/18/21 07:14 BMI result Body Mass Index 24.5 Const: General: cooperative Eyes: General: appearance normal, both eyes and all related structures Resp: Effort & Inspection: decreased respiratory effort Cardio: Rate: regular rate Rhythm: regular rhythm GI: Palpation (GI): Soft to palpation and nontender Skin: General skin exam: no rashes or lesions noted Extrem: General: Yes normal to inspection Results Labs CBC & Chem 7: 05/22/21 05:10 05/22/21 05:10 Labs: Short CBC 05/22/21 Range/Units 05:10 WBC 20.4 H (4.8-10.8) X10*3/uL Hgb 8.0 L (12.0-16.0) g/dl Hct 28.5 L (37.0-47.0) % Plt Count 449 H (160-400) X10*3/uL BMP 05/22/21 05:10 Sodium 140 Potassium 4.6 Chloride 104 Carbon Dioxide 31 H BUN 12 Creatinine 0.55 Calcium 9.5 Microbiology Microbiology Results: Microbiology 05/18/21 08:50 Blood - Venous Blood Culture - Preliminary No growth after 48 hours. 05/18/21 08:20 Blood - Venous Blood Culture - Preliminary No growth after 48 hours. 05/18/21 Unknown Urine clean catch - Urine castaneda top Urine Culture - Final Pseudomonas aeruginosa Assessment and Plan (1) Interstitial lung disease: Status: Acute (2) COPD exacerbation: Status: Acute She has some left pneumonia She wants to leave Change to Levaquin for 10 d total outpatient. Minimize aspiration
[2021-05-22] MEDS: bisacodyL 5 MG TABLET.DR 10 MG PO (22:40)
[2021-05-22] MEDS: Cyanocobalamin (Vitamin B-12) 1,000 MCG TABLET 1000 MCG PO (22:41)
[2021-05-22] MEDS: clonazePAM 0.5 MG TABLET PO (22:41)
[2021-05-22] MEDS: Zolpidem Tartrate 5 MG TABLET PO (22:42)
[2021-05-22] MEDS: Gabapentin 100 MG CAPSULE 200 MG PO (22:44)
[2021-05-23] VITALS (14 sets, daily range): BP systolic 98–131; BP diastolic 53–70; PULSE 73–118; RESP 16–22; TEMP 35.9–37.7; O2SAT 88–97
[2021-05-23] MEDS: Morphine Sulfate 2 MG/ML CARTRIDGE IVPUSH ×2 (01:56→08:01)
[2021-05-23] MEDS: oxyCODONE HCl Immed Release 5 MG TABLET PO ×3 (04:38→22:43)
[2021-05-23] MEDS: Omeprazole 20 MG CAPSULE.DR PO ×2 (05:12→15:35)
--- NOTE | 2021-05-23 07:01 | HE.PHANOTE ---
Shamir Mckeon RN to ask the patients family to bring in the non-form inhaler. Will follow up.
[2021-05-23] MEDS: Lidocaine 4 % Patch ADH..PATCH 1 PATCH TRANSDERMA (08:01)
[2021-05-23] MEDS: guaiFENesin DM 200/20/10 ML 10 ML SYRUP PO ×3 (08:01→22:44)
[2021-05-23] MEDS: Sucralfate Oral Suspension 1 GM/10 ML ORAL.SUSP PO ×3 (08:01→22:44)
[2021-05-23] MEDS: 0.9 % Sodium Chloride Flush 3 ML SYRINGE IVFLUSH ×3 (08:02→22:44)
[2021-05-23] MEDS: Calcium + Vitamin D 250 MG TABLET 500 MG PO (08:02)
[2021-05-23] MEDS: Docusate Sodium 100 MG CAPSULE PO ×2 (08:02→22:44)
[2021-05-23] MEDS: levoFLOXacin/D5W 750 MG/150 ML PIGGYBACK 100 MG IV (08:02)
[2021-05-23] MEDS: predniSONE 5 MG TABLET 15 MG PO (08:02)
[2021-05-23] MEDS: Pregabalin 150 MG CAPSULE PO ×2 (08:03→22:43)
[2021-05-23] MEDS: Apixaban 5 MG TABLET PO ×2 (08:03→22:44)
[2021-05-23] MEDS: Folic Acid 1 MG TABLET PO (08:03)
[2021-05-23] MEDS: Ferrous Sulfate 324 MG TABLET.DR PO ×2 (08:03→15:35)
[2021-05-23] MEDS: Albuterol/Iprat 2.5/0.5MG 3 ML AMPUL.NEB INHALE ×4 (08:05→20:24)
--- NOTE | 2021-05-23 12:37 | MHC.SL.SWA ---
Speech Pathologist Impression: Risk of Aspiration Oralpharyngeal Dysphagia Risk of Aspiration Due to: History of Pneumonia Dysphasia Diet Status: Downgrade Liquid Consistency and Strategies for Safe Swallow: Liquid Intake Recommendation: Honey Thick Liquid Intake Strategies: Small Sips No Straws Solid Food Consistency: Dietary Recommendations: Pureed (NDD1) Additional Modifications to Solid Foods: Recommend PUREED (NDD1) solids and HONEY THICK liquids, with pills WHOLE or CRUSHED in PUREE. Patient is able to feed herself, but is recommended total 1:1 supervision during PO intake to monitor tolerance and to provide cues/reminders for aspiration precautions. PARA PROFESSIONAL will continue to follow. Oral Medication Intake: Whole with Puree Compensatory Strategies and Precautions to be Taken for Safe Swallow: Sitting Upright (90 deg) No Straw Small Bites and Sips Rate of Ingestion Change Supervision While Eating and Drinking for Safe Swallow: Total Supervision (1:1) Foods to Avoid: Swallowing Recommended Treatments: Compens. Strategy Educat. Recommendation for Speech: Inpatient Speech Therapy Comment: Objective: Pt was agitated this morning, complaining of pain, asking for pain medication, c/o mistreatment by an Aid, though clear this is a perseverative thought and may not be accurate, asking to be discharged. Pt c/o breakfast, ate very little, disliked things in cups. Did recall education given by PARA PROFESSIONAL yesterday, re: Honey thick liquid, her aspiration risks. Pt currently on high flow cannula. Treatment: Pt took small amounts of honey thick liquid and puree by spoon. On both consistencies, she has a mild delay of swallow and reduced laryngeal elevation on swallow w/ no s/s aspiration observed. Pt asked for ice chips. Pt was given oral care, followed by small amounts of ice chips by spoon. No s/s of aspiration noted on small amounts of ice chips given. However, Pt repeatedly asked for the cup, and wanting more ice. Cup was removed at the end of the session. Pt required continued reminders and education about her aspiration risk and need for diet consistencies, along with clear limitations and close monitoring for not accessing inappropriate foods. Frequency/Duration: Date Range for Service Req: Timeline to reassess: Accounting Machine Mechanic Clinican/Clinical Fellow: No Supervisory Statement: I have reviewed and agree with the student/clinical fellow's documentation: N/A Speech Language Pathologist: Carisa Irizarry M.A., CCC-PARA PROFESSIONAL
--- NOTE | 2021-05-23 15:25 | P.PNIM_ITS ---
Subjective Subjective Date of Service: 05/23/21 Interval History: Being followed for back pain and pneumonia, no acute overnight issues still requiring high-flow oxygen, back and right-sided chest pain has improved, denies shortness of breath, no fevers, no chills Able to sit up better in bed. Review of Systems General no headache, no dizziness, no fever chills. CVS no chest pain, no palpitation. Respiratory no cough, no sob Gastrointestinal no nausea, no vomiting, no abdominal pain Review of Systems: Yes all other systems are reviewed and are negative Physical Exam Vital Signs: Vital Signs: Last Vital Signs Temp 96.7 F L 05/23/21 15:16 Pulse 89 05/23/21 15:16 Resp 20 05/23/21 15:16 BP 100/53 L 05/23/21 15:16 Pulse Ox 90 L 05/23/21 15:16 Oxygen Flow Rate 3 05/18/21 07:14 BMI result Body Mass Index 24.5 General:? No acute distress, awake alert, HFNC at 45L pm 70% fiO2 Neck: supple, no JVD Lungs: diminished bilaterally, no wheezes ,no crackles Heart: regular rate and rhythm, no murmurs Abd: soft, non-tender, non-distended Ext: no edema Skin: warm/well-perfused chronic depigmentation upper back Neuro: alert and oriented x3, no focal findings Psych: appropriate affect Objective Data Active Medications Acetaminophen (Acetaminophen 325 Mg Tablet) 650 mg PO Q6H PRN PRN Reason: Pain, Mild (Pain Scale 1-3) Last Admin: 05/21/21 08:33 Dose: 650 mg Documented by: MICKEY Albuterol/Ipratropium (Albuterol/Iprat 2.5/0.5mg 3 Ml Ampul.Neb) 3 ml INHALE Q2H PRN PRN Reason: sob Albuterol/Ipratropium (Albuterol/Iprat 2.5/0.5mg 3 Ml Ampul.Neb) 3 ml INHALE RQ4H WHILE AWAKE [facility] Last Admin: 05/23/21 15:16 Dose: 3 ml Documented by: HUMPHREY Apixaban (Apixaban 5 Mg Tablet) 5 mg PO BID [facility] Last Admin: 05/23/21 08:03 Dose: 5 mg Documented by: CRISTIANA Bisacodyl (Bisacodyl 5 Mg Tablet.) 10 mg PO BEDTIME [facility] Last Admin: 05/22/21 22:40 Dose: 10 mg Documented by: ANTHONY Calcitonin [place] (Calcitonin,[place],Synth Nasal 3.7 Ml Bottle) 1 spray NOSTRILALT DAILY [facility] Last Admin: 05/23/21 08:16 Dose: Not Given Documented by: CRISTIANA Non-Admin Reason: Patient Refused Calcium Carbonate/Cholecalciferol (Calcium + Vitamin D 250 Mg Tablet) 500 mg PO DAILY [facility] Last Admin: 05/23/21 08:02 Dose: 500 mg Documented by: CRISTIANA Clonazepam (Clonazepam 0.5 Mg Tablet) 0.5 mg PO BEDTIME PRN PRN Reason: insomnia Last Admin: 05/22/21 22:41 Dose: 0.5 mg Documented by: ANTHONY Cyanocobalamin (Cyanocobalamin (Vitamin B-12) 1,000 Mcg Tablet) 1,000 mcg PO BEDTIME [facility] Last Admin: 05/22/21 22:41 Dose: 1,000 mcg Documented by: ANTHONY Docusate Sodium (Docusate Sodium 100 Mg Capsule) 100 mg PO BID [facility] Last Admin: 05/23/21 08:02 Dose: 100 mg Documented by: CRISTIANA Ferrous Sulfate (Ferrous Sulfate 324 Mg Tablet.) 324 mg PO BIDWM [facility] Last Admin: 05/23/21 08:03 Dose: 324 mg Documented by: CRISTIANA Folic Acid (Folic Acid 1 Mg Tablet) 1 mg PO DAILY [facility] Last Admin: 05/23/21 08:03 Dose: 1 mg Documented by: CRISTIANA Gabapentin (Gabapentin 100 Mg Capsule) 200 mg PO BEDTIME [facility] Last Admin: 05/22/21 22:44 Dose: 200 mg Documented by: ANTHONY Guaifenesin/Dextromethorphan (Guaifenesin Dm 200/20/10 Ml 10 Ml Syrup) 10 ml PO TID [facility] Last Admin: 05/23/21 08:01 Dose: 10 ml Documented by: CRISTIANA Levofloxacin (Levaquin) 750 mg in 150 mls @ 100 mls/hr IV Q24H [facility] Last Infusion: 05/23/21 09:50 Dose: 0 mls/hr Documented by: CRISTIANA Lidocaine (Lidocaine 4 % Patch Adh..Patch) 1 patch TRANSDERMA DAILY [facility]; Protocol Last Admin: 05/23/21 08:01 Dose: 1 patch Documented by: CRISTIANA Methotrexate (Methotrexate Sodium 2.5 Mg Tablet) 10 mg PO Sa@0900 [facility] Last Admin: 05/20/21 10:09 Dose: 10 mg Documented by: BRODYESLucho Morphine Sulfate (Morphine Sulfate 2 Mg/Ml Cartridge) 2 mg IVPUSH Q4H PRN; Protocol PRN Reason: Pain, Severe (Pain Scale 7-10) Last Admin: 05/23/21 08:01 Dose: 2 mg Documented by: CRISTIANA Non-Formulary Medication (Umeclidinium-Vilanterol [Anoro Ellipta]) 1 inhalation INHALE DAILY [facility] Omeprazole (Omeprazole 20 Mg Capsule.Dr) 20 mg PO BID@0630,1630 [facility] Last Admin: 05/23/21 05:12 Dose: 20 mg Documented by: ANTHONY Ondansetron HCl (Ondansetron Hcl 4 Mg/2 Ml Vial) 4 mg IVPUSH Q8H PRN PRN Reason: Nausea and Vomiting Oxycodone HCl (Oxycodone Hcl Immed Release 5 Mg Tablet) 5 mg PO Q6H PRN PRN Reason: Pain, Severe (Pain Scale 7-10) Last Admin: 05/23/21 04:38 Dose: 5 mg Documented by: ANTHONY Pharmacy Consult (Consult Rx Perform Med Rec) 1 each MISCELLANE ONCE PRN PRN Reason: Consult order Polyethylene Glycol (Polyethylene Glycol 3350 17 Gm Powd.Pack) 17 gm PO DAILY [facility] Last Admin: 05/23/21 08:17 Dose: Not Given Documented by: CRISTIANA Non-Admin Reason: Patient Refused Prednisone (Prednisone 5 Mg Tablet) 15 mg PO DAILY [facility] Last Admin: 05/23/21 08:02 Dose: 15 mg Documented by: CRISTIANA Pregabalin (Pregabalin 150 Mg Capsule) 150 mg PO BID [facility] Last Admin: 05/23/21 08:03 Dose: 150 mg Documented by: CRISTIANA Sodium Chloride (0.9 % Sodium Chloride Flush 3 Ml Syringe) 3 ml IVFLUSH QSHIFT [facility] Last Admin: 05/23/21 08:02 Dose: 3 ml Documented by: CRISTIANA Sucralfate (Sucralfate Oral Suspension 1 Gm/10 Ml Oral.Susp) 1 gm PO QIDACHS [facility] Last Admin: 05/23/21 15:02 Dose: Not Given Documented by: CRISTIANA Non-Admin Reason: Patient Refused Zolpidem Tartrate (Zolpidem Tartrate 5 Mg Tablet) 5 mg PO BEDTIME PRN PRN Reason: Insomnia Last Admin: 05/22/21 22:42 Dose: 5 mg Documented by: ANTHONY Labs CBC & Chem 7: 05/22/21 05:10 05/22/21 05:10 Microbiology Microbiology Results: Microbiology 05/18/21 08:50 Blood Culture - Final Blood - Venous No growth after 5 days. 05/18/21 08:20 Blood Culture - Final Blood - Venous No growth after 5 days. Assessment and Plan (1) Interstitial lung disease: Status: Acute (2) Hiatal hernia: Status: Acute (3) Iron deficiency anemia: Status: Acute (4) COPD exacerbation: Status: Acute (5) Peripheral neuropathy: Status: Acute Assessment and Plan: 76yo F with COPD, chronic hypoxic respiratory failure on 3L hO2, prior DVT on apixaban presented with acute dyspnea, admitted for acute/chronic hypoxia + COPD exacerbation,also found to have iron deficiency anemia, UTI, and acute T4 + T6 vertebral compression fractures #acute/chronic hypoxic respiratory failure due to COPD exacerbation, ILD and PNA Clinically seems better, talking in full sentences, no respiratory distress ? Persistent hypoxia, On HFNC will wean gradually,continue IV glucocorticoids, scheduled/prn nebulizers, levofloxacin d#3 [was on doxycycline x3d] - likely recurrent microaspiration since does not follow aspiration precaution Repeat chest x-ray 05/21 showed increased bibasilar opacities, right greater than left with probable small amount of pleural fluid - respiratory virus panel negative - PCT low, BCx negative at 48 hr - urine Legionella pending, pneumococcal UAGs not detected - seen by ID she recommend to treat with Levaquin for total 10 days for left base pneumonia. # acute/chronic HFpEF - appears euvolemic, got 1 dose of furosemide in ED.? BNP improved from 343 to 154 # UTI - UCx growing Pseudomonas aeruginosa, levofloxacin d#3 # Iron deficiency anemia - hematocrit stable around 28 , will transfuse if Hb <7 - seen by GI,not stable for EGD.? hx large hiatal hernia, since on high-flow oxygen cannot undergo imaging studies, cont. by mouth PPI, s/p IV iron, follow clinical course # chronic aspiration - being followed by speech therapy they continue to recommend pureed solids and honey thick liquids with close supervision and aspiration precautions # acute T4+T6 vertebral compression fractures - complicated by chronic pain due to multiple vertebral fractures s/p vertebroplasty T9-T12 and L2 - continue calcitonin, APAP, pregabalin, oxycodone, prn morphine and lidocaine patch, will resume gabapentin since patient is insisting, explained it is Therapeutic duplication since already on pregabalin ? # somnolence - related to oxycodone 10mg given in ED, resolved.? # chronic LLE DVT - continue apixaban # tobacco abuse - smoking cessation encouraged # rheumatoid arthritis - MTX # VTE ppx - apixaban # dispo being followed by PT Quality Stroke Does the patient have a stroke diagnosis?: No VTE Prior VTE?: No VTE Risk Level:: Medical - moderate - high VTE Device Contraindication: N/A - Device Ordered VTE Drug Contraindication: N/A - Med Ordered
[2021-05-23] MEDS: Gabapentin 100 MG CAPSULE 200 MG PO (22:43)
[2021-05-23] MEDS: bisacodyL 5 MG TABLET.DR 10 MG PO (22:44)
[2021-05-23] MEDS: Cyanocobalamin (Vitamin B-12) 1,000 MCG TABLET 1000 MCG PO (22:44)
[2021-05-24] VITALS (16 sets, daily range): BP systolic 98–128; BP diastolic 54–74; PULSE 61–112; RESP 15–88; TEMP 36.4–37.2; O2SAT 55–96
[2021-05-24] MEDS: oxyCODONE HCl Immed Release 5 MG TABLET PO ×3 (05:35→22:25)
[2021-05-24] MEDS: Omeprazole 20 MG CAPSULE.DR PO ×2 (05:35→17:05)
[2021-05-24] MEDS: Albuterol/Iprat 2.5/0.5MG 3 ML AMPUL.NEB INHALE ×4 (08:06→19:45)
[2021-05-24] MEDS: Lidocaine 4 % Patch ADH..PATCH 1 PATCH TRANSDERMA (09:59)
[2021-05-24] MEDS: levoFLOXacin/D5W 750 MG/150 ML PIGGYBACK 100 MG IV (10:07)
[2021-05-24] MEDS: Calcitonin,Salmon,Synth Nasal 3.7 ML BOTTLE 1 SPRAY NOSTRILALT (10:10)
[2021-05-24] MEDS: Folic Acid 1 MG TABLET PO (10:11)
[2021-05-24] MEDS: Calcium + Vitamin D 250 MG TABLET 500 MG PO (10:11)
[2021-05-24] MEDS: Ferrous Sulfate 324 MG TABLET.DR PO ×2 (10:11→17:05)
[2021-05-24] MEDS: guaiFENesin DM 200/20/10 ML 10 ML SYRUP PO ×2 (10:11→22:24)
[2021-05-24] MEDS: Docusate Sodium 100 MG CAPSULE PO ×2 (10:11→22:24)
[2021-05-24] MEDS: predniSONE 5 MG TABLET 15 MG PO (10:11)
[2021-05-24] MEDS: Apixaban 5 MG TABLET PO ×2 (10:11→22:25)
[2021-05-24] MEDS: Pregabalin 150 MG CAPSULE PO ×2 (10:11→22:24)
[2021-05-24] MEDS: Morphine Sulfate 2 MG/ML CARTRIDGE IVPUSH (10:22)
[2021-05-24] MEDS: polyethylene glycoL 3350 17 GM POWD.PACK PO (10:23)
[2021-05-24] MEDS: 0.9 % Sodium Chloride Flush 3 ML SYRINGE IVFLUSH ×3 (10:23→22:25)
--- NOTE | 2021-05-24 10:47 | MHC.SL.SWA ---
Speech Pathologist Impression: Risk of Aspiration Oralpharyngeal Dysphagia Risk of Aspiration Due to: History of Pneumonia Dysphasia Diet Status: NO CHANGE Liquid Consistency and Strategies for Safe Swallow: Liquid Intake Recommendation: Honey Thick Liquid Intake Strategies: Small Sips No Straws Solid Food Consistency: Dietary Recommendations: Pureed (NDD1) Additional Modifications to Solid Foods: Recommend PUREED (NDD1) solids and HONEY THICK liquids, with pills WHOLE or CRUSHED in PUREE. Ice chips ok by request only and with proper oral care before presentation of ice chips. Patient is able to feed herself, but is recommended assistance with tray set up/ food preparation, and total 1:1 supervision during PO intake to monitor tolerance and to provide cues/reminders for aspiration precautions. DIVERSIONAL THERAPIST will continue to follow. Oral Medication Intake: Whole with Puree Compensatory Strategies and Precautions to be Taken for Safe Swallow: Sitting Upright (90 deg) No Straw Small Bites and Sips Rate of Ingestion Change Supervision While Eating and Drinking for Safe Swallow: Total Supervision (1:1) Swallowing Recommended Treatments: Compens. Strategy Educat. Recommendation for Speech: Inpatient Speech Therapy Comment: Patient is admitted for COPD exacerbation with hypoxia also found to have iron deficiency anemia, UTI, and acute T4 and T6 vertebral compression fractures. Patient's history is significant for COPD, DVT, chronic respiratory failure with hypoxia, compression fracture of T9 vertebra, hiatal hernia, diverticulitis, tx for tuberculosis, left rib fracture, opioid abuse, rash, rib pain. DIVERSIONAL THERAPIST reviewed documentation from [facility]. Per MD note, patient has history of PNA and dysphagia. She had MBSS at [facility] February 2021 which showed aspiration with thin liquid, deep penetration with nectar thick liquid, no aspiration or penetration with honey thick liquid, flash penetration with applesauce/pudding. Patient was placed on a pureed diet, which patient had continued at rehab facility after discharge. Per MD note, patient resumed consumption of regular solids and liquids after discharge from rehab. She was therefore referred for outpatient services here at [facility]. Patient was scheduled for outpatient [facility] evaluation [facility] this [facility], but did not show up due to this hospitalization. Lead Tank Mechanic Clinican/Clinical Fellow: No Supervisory Statement: I have reviewed and agree with the student/clinical fellow's documentation: N/A Speech Language Pathologist: Anna Silver M.A., [facility]-DIVERSIONAL THERAPIST
[2021-05-24] MEDS: Sucralfate Oral Suspension 1 GM/10 ML ORAL.SUSP PO ×3 (12:21→22:24)
--- NOTE | 2021-05-24 14:39 | HO.PM.IMPN ---
Subjective Subjective Date of Service: 05/24/21 Interval History: Feeling better this morning denies shortness of breath wants to go home, able to get up in bed and feed herself, able to talk in full sentences, outpatient care provider at bedside. Review of Systems General no headache, no dizziness, no fever chills.? CVS no chest pain, no palpitation.? Respiratory no cough, no sob Gastrointestinal no nausea, no vomiting, no abdominal pain Review of Systems: Yes all other systems are reviewed and are negative Physical Exam Vital Signs: Vital Signs: Last Vital Signs Temp 97.9 F 05/24/21 11:13 Pulse 97 05/24/21 11:32 Resp 88 H 05/24/21 11:32 BP 100/58 L 05/24/21 11:13 Pulse Ox 90 L 05/24/21 11:13 Oxygen Flow Rate 3 05/18/21 07:14 BMI result Body Mass Index 24.5 General:? No acute distress, awake alert,? HFNC at 41L pm finger oximetry 90% Neck: supple, no JVD Lungs: diminished bilaterally, no wheezes ,no crackles Heart: regular rate and rhythm, no murmurs Abd: soft, non-tender, non-distended, bowel sounds audible Significant kyphosis Ext: no edema Skin: warm/well-perfused chronic depigmentation upper back Neuro: alert and oriented x3, no focal findings Psych: appropriate affect Objective Data Active Medications Acetaminophen (Acetaminophen 325 Mg Tablet) 650 mg PO Q6H PRN PRN Reason: Pain, Mild (Pain Scale 1-3) Last Admin: 05/21/21 08:33 Dose: 650 mg Documented by: MICKEY Albuterol/Ipratropium (Albuterol/Iprat 2.5/0.5mg 3 Ml Ampul.Neb) 3 ml INHALE Q2H PRN PRN Reason: sob Albuterol/Ipratropium (Albuterol/Iprat 2.5/0.5mg 3 Ml Ampul.Neb) 3 ml INHALE RQ4H WHILE AWAKE [facility] Last Admin: 05/24/21 11:32 Dose: 3 ml Documented by: HEATHER Apixaban (Apixaban 5 Mg Tablet) 5 mg PO BID [facility] Last Admin: 05/24/21 10:11 Dose: 5 mg Documented by: WES Bisacodyl (Bisacodyl 5 Mg Tablet.) 10 mg PO BEDTIME [facility] Last Admin: 05/23/21 22:44 Dose: 10 mg Documented by: RONALD Calcitonin [place] (Calcitonin,[place],Synth Nasal 3.7 Ml Bottle) 1 spray NOSTRILALT DAILY [facility] Last Admin: 05/24/21 10:10 Dose: 1 spray Documented by: WES Calcium Carbonate/Cholecalciferol (Calcium + Vitamin D 250 Mg Tablet) 500 mg PO DAILY [facility] Last Admin: 05/24/21 10:11 Dose: 500 mg Documented by: WES Clonazepam (Clonazepam 0.5 Mg Tablet) 0.5 mg PO BEDTIME PRN PRN Reason: insomnia Last Admin: 05/22/21 22:41 Dose: 0.5 mg Documented by: ANTHONY Cyanocobalamin (Cyanocobalamin (Vitamin B-12) 1,000 Mcg Tablet) 1,000 mcg PO BEDTIME [facility] Last Admin: 05/23/21 22:44 Dose: 1,000 mcg Documented by: RONALD Docusate Sodium (Docusate Sodium 100 Mg Capsule) 100 mg PO BID [facility] Last Admin: 05/24/21 10:11 Dose: 100 mg Documented by: WES Ferrous Sulfate (Ferrous Sulfate 324 Mg Tablet.) 324 mg PO BIDWM [facility] Last Admin: 05/24/21 10:11 Dose: 324 mg Documented by: WES Folic Acid (Folic Acid 1 Mg Tablet) 1 mg PO DAILY [facility] Last Admin: 05/24/21 10:11 Dose: 1 mg Documented by: WES Gabapentin (Gabapentin 100 Mg Capsule) 200 mg PO BEDTIME [facility] Last Admin: 05/23/21 22:43 Dose: 200 mg Documented by: RONALD Guaifenesin/Dextromethorphan (Guaifenesin Dm 200/20/10 Ml 10 Ml Syrup) 10 ml PO TID [facility] Last Admin: 05/24/21 10:11 Dose: 10 ml Documented by: WES Levofloxacin (Levaquin) 750 mg in 150 mls @ 100 mls/hr IV Q24H [facility] Last Infusion: 05/24/21 13:01 Dose: 0 mls/hr Documented by: WES Lidocaine (Lidocaine 4 % Patch Adh..Patch) 1 patch TRANSDERMA DAILY [facility]; Protocol Last Admin: 05/24/21 09:59 Dose: 1 patch Documented by: WES Methotrexate (Methotrexate Sodium 2.5 Mg Tablet) 10 mg PO Sa@0900 [facility] Last Admin: 05/20/21 10:09 Dose: 10 mg Documented by: IGLESLucho Morphine Sulfate (Morphine Sulfate 2 Mg/Ml Cartridge) 2 mg IVPUSH Q4H PRN; Protocol PRN Reason: Pain, Severe (Pain Scale 7-10) Last Admin: 05/24/21 10:22 Dose: 2 mg Documented by: WES Omeprazole (Omeprazole 20 Mg Capsule.) 20 mg PO BID@0630,1630 [facility] Last Admin: 05/24/21 05:35 Dose: 20 mg Documented by: RONALD Ondansetron HCl (Ondansetron Hcl 4 Mg/2 Ml Vial) 4 mg IVPUSH Q8H PRN PRN Reason: Nausea and Vomiting Oxycodone HCl (Oxycodone Hcl Immed Release 5 Mg Tablet) 5 mg PO Q6H PRN PRN Reason: Pain, Severe (Pain Scale 7-10) Last Admin: 05/24/21 05:35 Dose: 5 mg Documented by: RONALD Pharmacy Consult (Consult Rx Perform Med Rec) 1 each MISCELLANE ONCE PRN PRN Reason: Consult order Polyethylene Glycol (Polyethylene Glycol 3350 17 Gm Powd.Pack) 17 gm PO DAILY [facility] Last Admin: 05/24/21 10:23 Dose: 17 gm Documented by: WES Prednisone (Prednisone 5 Mg Tablet) 15 mg PO DAILY [facility] Last Admin: 05/24/21 10:11 Dose: 15 mg Documented by: WES Pregabalin (Pregabalin 150 Mg Capsule) 150 mg PO BID [facility] Last Admin: 05/24/21 10:11 Dose: 150 mg Documented by: WES Sodium Chloride (0.9 % Sodium Chloride Flush 3 Ml Syringe) 3 ml IVFLUSH QSHIFT [facility] Last Admin: 05/24/21 10:23 Dose: 3 ml Documented by: WES Sucralfate (Sucralfate Oral Suspension 1 Gm/10 Ml Oral.Susp) 1 gm PO QIDACHS [facility] Last Admin: 05/24/21 12:21 Dose: 1 gm Documented by: JUN Zolpidem Tartrate (Zolpidem Tartrate 5 Mg Tablet) 5 mg PO BEDTIME PRN PRN Reason: Insomnia Last Admin: 05/22/21 22:42 Dose: 5 mg Documented by: ANTHONY Labs CBC & Chem 7: 05/22/21 05:10 05/22/21 05:10 Microbiology Microbiology Results: Microbiology 05/18/21 08:50 Blood Culture - Final Blood - Venous No growth after 5 days. 05/18/21 08:20 Blood Culture - Final Blood - Venous No growth after 5 days. Assessment and Plan (1) Interstitial lung disease: Status: Acute (2) Hiatal hernia: Status: Acute (3) Iron deficiency anemia: Status: Acute (4) COPD exacerbation: Status: Acute (5) Aspiration pneumonia: Status: Acute (6) DVT (deep venous thrombosis): Status: Acute (7) Peripheral neuropathy: Status: Acute Assessment and Plan: 76yo F with COPD, chronic hypoxic respiratory failure on 3L hO2, prior DVT on apixaban presented with acute dyspnea, admitted for acute/chronic hypoxia + COPD exacerbation,also found to have iron deficiency anemia, UTI, and acute T4 + T6 vertebral compression fractures #acute/chronic hypoxic respiratory failure due to COPD exacerbation, ILD and PNA ? Feels better, no respiratory distress ? Persistent hypoxia, On HFNC slowly wean since oxygenation dropped to 70, when patient take off nasal cannula Transition to by mouth steroid, continue scheduled/prn nebulizers, levofloxacin d# 4 [was on doxycycline x3d] likely recurrent microaspiration since does not follow aspiration precaution ? Repeat chest x-ray 05/21 showed increased bibasilar opacities, right greater than left with probable small amount of pleural fluid - respiratory virus panel negative - PCT low, BCx negative at 48 hr - urine Legionella remains pending, pneumococcal UAGs not detected - seen by ID she recommend to treat with Levaquin for total 10 days for left base pneumonia. Will add IV Zosyn due to persistent hypoxia and worsening chest x-ray. # acute/chronic HFpEF - appears euvolemic, got 1 dose of furosemide in ED.? BNP improved from 343 to 154 # UTI - UCx growing Pseudomonas aeruginosa, levofloxacin d#4 # leukocytosis likely due to steroids and infection will follow CBC # Iron deficiency anemia - hematocrit stable around 28 , will transfuse if Hb <7 - seen by GI,not stable for EGD.? hx large hiatal hernia, since on high-flow oxygen cannot undergo imaging studies, cont. by mouth PPI, s/p IV iron, follow clinical course # chronic aspiration - being followed by speech therapy they continue to recommend pureed solids and honey thick liquids with close supervision and aspiration precautions # acute T4+T6 vertebral compression fractures - complicated by chronic pain due to multiple vertebral fractures s/p vertebroplasty T9-T12 and L2 - continue calcitonin, APAP, pregabalin, oxycodone, gabapentin, prn morphine and lidocaine patch ? # chronic LLE DVT - continue apixaban # tobacco abuse - smoking cessation encouraged # rheumatoid arthritis - MTX # VTE ppx - apixaban # dispo to be determined by PT Quality Stroke Does the patient have a stroke diagnosis?: No VTE Prior VTE?: No VTE Risk Level:: Medical - moderate - high VTE Device Contraindication: N/A - Device Ordered VTE Drug Contraindication: N/A - Med Ordered
[2021-05-24] MEDS: Piperacillin Sodium/Tazobactam 3.375 GM in 0.9 % Sodium Chloride 50 ML IV ×2 (15:51→22:25)
[2021-05-24] MEDS: bisacodyL 5 MG TABLET.DR 10 MG PO (22:24)
[2021-05-24] MEDS: Gabapentin 100 MG CAPSULE 200 MG PO (22:24)
[2021-05-24] MEDS: clonazePAM 0.5 MG TABLET PO (22:25)
[2021-05-24] MEDS: Cyanocobalamin (Vitamin B-12) 1,000 MCG TABLET 1000 MCG PO (22:25)
[2021-05-25] MEDS: Piperacillin Sodium/Tazobactam 3.375 GM in 0.9 % Sodium Chloride 50 ML IV ×2 (03:09→10:50)
[2021-05-25 03:58] VITALS: BP 102/62; PULSE 88; RESP 19; TEMP 37; O2SAT 89
[2021-05-25] MEDS: Omeprazole 20 MG CAPSULE.DR PO (06:05)
[2021-05-25 06:20] LABS: MANUAL DIFF FLAG NO
[2021-05-25 06:26] LABS: Basophils Percent Auto 0.1 % (0-2); Eosinophils Absolute Auto 0.3 X10*3/uL (0.0-0.4); Eosinophils Percent Auto 2.2 % (0-4); Hematocrit 29.3 % (37.0-47.0); Hemoglobin 8.1 g/dl (12.0-16.0); Imm Gran Abs Auto 0.12 X10*3/uL (0.00-0.03); Imm Gran Pct Auto 0.8 % (0.0-0.4); Lymphocytes Absolute Auto 1.1 X10*3/uL (1.2-4.9); Lymphocytes Percent Auto 7.4 % (20-40); Mean Corpuscular HGB Conc 27.6 g/dl (31.0-35.0); Mean Corpuscular Hemoglobin 19.4 pg (27.0-33.0); Mean Corpuscular Volume 70.3 fL (80.0-98.0); Mean Platelet Volume 10.2 fL (9.4-12.3); Monocytes Absolute Auto 1.4 X10*3/uL (0.1-1.2); Monocytes Percent Auto 9.6 % (2-11); NRBC Pct Auto 0.2 /100WBC (0.0-0.2); Neutrophils Absolute Auto 11.3 x10*3/uL (2.0-8.3); Neutrophils Percent Auto 79.9 % (45-73); Platelet Count 425 X10*3/uL (160-400); Red Blood Count 4.17 X10*6/uL (4.20-5.50); Red Cell Distribution Width 24.1 % (11.0-16.0); White Blood Count 14.1 X10*3/uL (4.8-10.8)
[2021-05-25 06:47] LABS: Anion Gap 8 (12-20); Blood Urea Nitrogen 13 mg/dL (9-16); Calcium 9.4 mg/dL (8.4-10.2); Carbon Dioxide 32 mmol/L (22-29); Chloride 103 mmol/L (96-108); Creatinine Clr Calc Pharmacy 59.9; Estimated Glomerular Filt Rate > 60; Glucose Random 144 mg/dL (60-115); Potassium 4.3 mmol/L (3.3-5.1); Sodium 139 mmol/L (135-145)
[2021-05-25 07:49] VITALS: BP 150/67; PULSE 97; RESP 18; TEMP 36.2; O2SAT 90
[2021-05-25] MEDS: levoFLOXacin/D5W 750 MG/150 ML PIGGYBACK 100 MG IV (08:10)
[2021-05-25] MEDS: Sucralfate Oral Suspension 1 GM/10 ML ORAL.SUSP PO ×2 (08:17→12:09)
[2021-05-25] MEDS: guaiFENesin DM 200/20/10 ML 10 ML SYRUP PO (08:17)
[2021-05-25] MEDS: Ferrous Sulfate 324 MG TABLET.DR PO (08:20)
[2021-05-25] MEDS: Pregabalin 150 MG CAPSULE PO (08:20)
[2021-05-25] MEDS: Docusate Sodium 100 MG CAPSULE PO (08:20)
[2021-05-25] MEDS: oxyCODONE HCl Immed Release 5 MG TABLET PO (08:20)
[2021-05-25] MEDS: Folic Acid 1 MG TABLET PO (08:20)
[2021-05-25] MEDS: Lidocaine 4 % Patch ADH..PATCH 1 PATCH TRANSDERMA (08:20)
[2021-05-25] MEDS: predniSONE 5 MG TABLET 15 MG PO (08:20)
[2021-05-25] MEDS: Apixaban 5 MG TABLET PO (08:20)
[2021-05-25] MEDS: 0.9 % Sodium Chloride Flush 3 ML SYRINGE IVFLUSH (08:30)
[2021-05-25] MEDS: Calcitonin,Salmon,Synth Nasal 3.7 ML BOTTLE 1 SPRAY NOSTRILALT (08:30)
--- NOTE | 2021-05-25 10:28 | MHC.CLN ---
RE: WT LOSS FROM NURSING ADMISSION ASSESSMENT PT'S PREVIOUS WT HX REVEALS 56.8KG (12/16/20) CURRENT WT 56.9KG PT WITHOUT SIGNIFICANT WT LOSS AT THIS TIME CONTINUE CURRENT CARE PLAN
[2021-05-25 10:46] VITALS: O2SAT 84
[2021-05-25 10:47] VITALS: O2SAT 87
[2021-05-25 11:08] VITALS: RESP 18; O2SAT 92
[2021-05-25] MEDS: Albuterol/Iprat 2.5/0.5MG 3 ML AMPUL.NEB INHALE ×2 (11:08→14:54)
--- NOTE | 2021-05-25 11:29 | MHC.SL.SWA ---
Speech Pathologist Impression: Risk of Aspiration Oralpharyngeal Dysphagia Risk of Aspiration Due to: History of Pneumonia Dysphasia Diet Status: Downgrade Liquid Consistency and Strategies for Safe Swallow: Liquid Intake Recommendation: Honey Thick Liquid Intake Strategies: Small Sips No Straws Solid Food Consistency: Dietary Recommendations: Pureed (NDD1) Additional Modifications to Solid Foods: Recommend PUREED (NDD1) solids and HONEY THICK liquids, with pills WHOLE or CRUSHED in PUREE. Patient is able to feed herself, but is recommended total 1:1 supervision during PO intake to monitor tolerance and to provide cues/reminders for aspiration precautions. PARTS PERSON will continue to follow. Oral Medication Intake: Whole with Puree Compensatory Strategies and Precautions to be Taken for Safe Swallow: Sitting Upright (90 deg) No Straw Small Bites and Sips Rate of Ingestion Change Supervision While Eating and Drinking for Safe Swallow: Total Supervision (1:1) Foods to Avoid: Swallowing Recommended Treatments: Compens. Strategy Educat. Recommendation for Speech: Inpatient Speech Therapy Comment: Patient is admitted for COPD exacerbation with hypoxia also found to have iron deficiency anemia, UTI, and acute T4 and T6 vertebral compression fractures. Patient's history is significant for COPD, DVT, chronic respiratory failure with hypoxia, compression fracture of T9 vertebra, hiatal hernia, diverticulitis, tx for tuberculosis, left rib fracture, opioid abuse, rash, rib pain. PARTS PERSON reviewed documentation from [facility]. Per MD note, patient has history of PNA and dysphagia. She had MBSS at [facility] February 2021 which showed aspiration with thin liquid, deep penetration with nectar thick liquid, no aspiration or penetration with honey thick liquid, flash penetration with applesauce/pudding. Patient was placed on a pureed diet, which patient had continued at rehab facility after discharge. Per MD note, patient resumed consumption of regular solids and liquids after discharge from rehab. She was therefore referred for outpatient services here at [facility]. Patient was scheduled for outpatient [facility] evaluation [facility] this [facility], but did not show up due to this hospitalization. During this hospital stay, Pt has repeatedly been given education regarding safe diet consistencies and her aspiration risk, which was again emphasized today during treatment (05/25). Pt is tolerating diet of HONEY THICK liquid and PUREED (NDD1) well, but continues to protest at times about having thick liquids, and express a plan to eat like I normally do when she returns home. Level of insight regarding her aspiration risk continues to be a challenge. Frequency/Duration: Date Range for Service Req: Timeline to reassess: Business Analyst Project Manager Clinican/Clinical Fellow: No Supervisory Statement: I have reviewed and agree with the student/clinical fellow's documentation: N/A Speech Language Pathologist: Carisa Irizarry M.A., CCC-PARTS PERSON
[2021-05-25 12:00] VITALS: BP 110/62; PULSE 80; RESP 18; TEMP 36.4; O2SAT 90
--- NOTE | 2021-05-25 13:09 | HO.PM.IMPN ---
Subjective Subjective Date of Service: 05/25/21 Interval History: Requesting to be discharged home, lives alone, does laundry cooking and has a cat, denies chest pain, denies shortness of breath, denies cough, no other acute issues overnight, no complain of pain. Review of Systems General no headache, no dizziness, no fever chills.? CVS no chest pain, no palpitation.? Respiratory no cough, no sob Gastrointestinal no nausea, no vomiting, no abdominal pain Review of Systems: Yes all other systems are reviewed and are negative Physical Exam Vital Signs: Vital Signs: Last Vital Signs Temp 97.6 F 05/25/21 12:00 Pulse 80 05/25/21 12:00 Resp 18 05/25/21 12:00 BP 110/62 05/25/21 12:00 Pulse Ox 90 L 05/25/21 12:00 Oxygen Flow Rate 3 05/18/21 07:14 BMI result Body Mass Index 24.5 General:? No acute distress, awake alert,? HFNC at 41L pm finger oximetry 90% Neck: supple, no JVD Lungs: diminished bilaterally, no wheezes ,no crackles Heart: regular rate and rhythm, no murmurs Abd: soft, non-tender, non-distended, bowel sounds audible Significant kyphosis Ext: no edema Skin: warm/well-perfused chronic depigmentation upper back Neuro: alert and oriented x3, no focal findings Psych: appropriate affect Objective Data Active Medications Acetaminophen (Acetaminophen 325 Mg Tablet) 650 mg PO Q6H PRN PRN Reason: Pain, Mild (Pain Scale 1-3) Last Admin: 05/21/21 08:33 Dose: 650 mg Documented by: MICKEY Albuterol/Ipratropium (Albuterol/Iprat 2.5/0.5mg 3 Ml Ampul.Neb) 3 ml INHALE RQ4H WHILE AWAKE [facility] Last Admin: 05/25/21 11:08 Dose: 3 ml Documented by: HEATHER Apixaban (Apixaban 5 Mg Tablet) 5 mg PO BID [facility] Last Admin: 05/25/21 08:20 Dose: 5 mg Documented by: WES Bisacodyl (Bisacodyl 5 Mg Tablet.) 10 mg PO BEDTIME [facility] Last Admin: 05/24/21 22:24 Dose: 10 mg Documented by: RONALD Calcitonin [place] (Calcitonin,[place],Synth Nasal 3.7 Ml Bottle) 1 spray NOSTRILALT DAILY [facility] Last Admin: 05/25/21 08:30 Dose: 1 spray Documented by: WES Calcium Carbonate/Cholecalciferol (Calcium + Vitamin D 250 Mg Tablet) 500 mg PO DAILY [facility] Last Admin: 05/24/21 10:11 Dose: 500 mg Documented by: WES Clonazepam (Clonazepam 0.5 Mg Tablet) 0.5 mg PO BEDTIME PRN PRN Reason: insomnia Last Admin: 05/24/21 22:25 Dose: 0.5 mg Documented by: RONALD Cyanocobalamin (Cyanocobalamin (Vitamin B-12) 1,000 Mcg Tablet) 1,000 mcg PO BEDTIME [facility] Last Admin: 05/24/21 22:25 Dose: 1,000 mcg Documented by: RONLAD Docusate Sodium (Docusate Sodium 100 Mg Capsule) 100 mg PO BID [facility] Last Admin: 05/25/21 08:20 Dose: 100 mg Documented by: WES Ferrous Sulfate (Ferrous Sulfate 324 Mg Tablet.Dr) 324 mg PO BIDWM [facility] Last Admin: 05/25/21 08:20 Dose: 324 mg Documented by: WES Folic Acid (Folic Acid 1 Mg Tablet) 1 mg PO DAILY [facility] Last Admin: 05/25/21 08:20 Dose: 1 mg Documented by: WES Gabapentin (Gabapentin 100 Mg Capsule) 200 mg PO BEDTIME [facility] Last Admin: 05/24/21 22:24 Dose: 200 mg Documented by: RONALD Guaifenesin/Dextromethorphan (Guaifenesin Dm 200/20/10 Ml 10 Ml Syrup) 10 ml PO TID [facility] Last Admin: 05/25/21 08:17 Dose: 10 ml Documented by: WES Levofloxacin (Levaquin) 750 mg in 150 mls @ 100 mls/hr IV Q24H [facility] Last Infusion: 05/25/21 11:16 Dose: 0 mls/hr Documented by: WES Piperacillin Sod/Tazobactam (Sod 3.375 gm/ Sodium Chloride) 50 mls @ 100 mls/hr IV Q6H [facility] Last Infusion: 05/25/21 11:53 Dose: 0 mls/hr Documented by: WES Lidocaine (Lidocaine 4 % Patch Adh..Patch) 1 patch TRANSDERMA DAILY [facility]; Protocol Last Admin: 05/25/21 08:20 Dose: 1 patch Documented by: WES Methotrexate (Methotrexate Sodium 2.5 Mg Tablet) 10 mg PO Sa@0900 [facility] Last Admin: 05/20/21 10:09 Dose: 10 mg Documented by: IGLESM Morphine Sulfate (Morphine Sulfate 2 Mg/Ml Cartridge) 2 mg IVPUSH Q4H PRN; Protocol PRN Reason: Pain, Severe (Pain Scale 7-10) Last Admin: 05/24/21 10:22 Dose: 2 mg Documented by: WES Omeprazole (Omeprazole 20 Mg Capsule.Dr) 20 mg PO BID@0630,1630 [facility] Last Admin: 05/25/21 06:05 Dose: 20 mg Documented by: ANTTONY Ondansetron HCl (Ondansetron Hcl 4 Mg/2 Ml Vial) 4 mg IVPUSH Q8H PRN PRN Reason: Nausea and Vomiting Oxycodone HCl (Oxycodone Hcl Immed Release 5 Mg Tablet) 5 mg PO Q6H PRN PRN Reason: Pain, Severe (Pain Scale 7-10) Last Admin: 05/25/21 08:20 Dose: 5 mg Documented by: WES Pharmacy Consult (Consult Rx Perform Med Rec) 1 each MISCELLANE ONCE PRN PRN Reason: Consult order Polyethylene Glycol (Polyethylene Glycol 3350 17 Gm Powd.Pack) 17 gm PO DAILY [facility] Last Admin: 05/25/21 10:57 Dose: Not Given Documented by: WES Non-Admin Reason: Patient Refused Prednisone (Prednisone 5 Mg Tablet) 15 mg PO DAILY [facility] Last Admin: 05/25/21 08:20 Dose: 15 mg Documented by: WES Pregabalin (Pregabalin 150 Mg Capsule) 150 mg PO BID [facility] Last Admin: 05/25/21 08:20 Dose: 150 mg Documented by: WES Sodium Chloride (0.9 % Sodium Chloride Flush 3 Ml Syringe) 3 ml IVFLUSH QSHIFT [facility] Last Admin: 05/25/21 08:30 Dose: 3 ml Documented by: WES Sucralfate (Sucralfate Oral Suspension 1 Gm/10 Ml Oral.Susp) 1 gm PO QIDACHS LACEY Last Admin: 05/25/21 12:09 Dose: 1 gm Documented by: WES Zolpidem Tartrate (Zolpidem Tartrate 5 Mg Tablet) 5 mg PO BEDTIME PRN PRN Reason: Insomnia Last Admin: 05/22/21 22:42 Dose: 5 mg Documented by: ANTHONY Labs CBC & Chem 7: 05/25/21 05:58 05/25/21 05:58 Labs: Laboratory Results - last 24 hr 05/25/21 05/25/21 05:58 05:58 MCV 70.3 L MCH 19.4 L MCHC 27.6 L RDW 24.1 H Plt Count 425 H MPV 10.2 Immature Gran % (Auto) 0.8 H Neut % (Auto) 79.9 H Lymph % (Auto) 7.4 L [place] % (Auto) 9.6 Eos % (Auto) 2.2 Baso % (Auto) 0.1 Lymph # (Auto) 1.1 L [place] # (Auto) 1.4 H Eos # (Auto) 0.3 Baso # (Auto) 0.0 Abs Immat Gran (auto) 0.12 H Absolute Neuts (auto) 11.3 H Absolute Nucleated RBC 0.030 H Nucleated RBC % (auto) 0.2 Anion Gap 8 L Estim Creat Clear Calc 59.9 Estimated GFR > 60 Random Glucose 144 H Calcium 9.4 Assessment and Plan (1) Interstitial lung disease: Status: Acute (2) Hiatal hernia: Status: Acute (3) Iron deficiency anemia: Status: Acute (4) COPD exacerbation: Status: Acute (5) Chronic idiopathic constipation: Status: Acute (6) Aspiration pneumonia: Status: Acute Assessment and Plan: 76yo F with COPD, chronic hypoxic respiratory failure on 3L hO2, prior DVT on apixaban presented with acute dyspnea, admitted for acute/chronic hypoxia + COPD exacerbation,also found to have iron deficiency anemia, UTI, and acute T4 + T6 vertebral compression fractures #acute/chronic hypoxic respiratory failure due to COPD exacerbation, ILD and PNA ? Feels better, no respiratory distress ? hypoxia, improved now on 5 L of nasal cannula, requesting to be discharged home ? Continue by mouth prednisone day 2,continue scheduled/prn nebulizers, continue levofloxacin d# 5/IV Zosyn day 2 [was on doxycycline x3d] ? likely recurrent microaspiration since does not follow aspiration precaution ? Repeat chest x-ray 05/21 showed increased bibasilar opacities, right greater than left with probable small amount of pleural fluid - respiratory virus panel negative - PCT low, BCx negative at 48 hr - urine Legionella remains pending, pneumococcal UAGs not detected # acute/chronic HFpEF - appears euvolemic, got 1 dose of furosemide in ED.? BNP improved from 343 to 154 # UTI - UCx growing Pseudomonas aeruginosa, levofloxacin d#5 # leukocytosis likely due to steroids and infection , stable # Iron deficiency anemia - hematocrit stable around 28 , will transfuse if Hb <7 - seen by GI,not stable for EGD.? hx large hiatal hernia, since on high-flow oxygen cannot undergo imaging studies, cont. by mouth PPI, s/p IV iron, follow clinical course # chronic aspiration - being followed by speech therapy they continue to recommend pureed solids and honey thick liquids with close supervision and aspiration precautions # acute T4+T6 vertebral compression fractures - complicated by chronic pain due to multiple vertebral fractures s/p vertebroplasty T9-T12 and L2 - good pain control continue calcitonin, APAP, pregabalin, oxycodone, gabapentin, and lidocaine patch, DC IV morphine ? # chronic LLE DVT - continue apixaban # tobacco abuse - smoking cessation encouraged # rheumatoid arthritis - MTX # VTE ppx - apixaban # dispo seen by Physical therapy and they are recommending pulmonary rehab since oxygenation dropped to 70s on 4 L Quality Stroke Does the patient have a stroke diagnosis?: No VTE Prior VTE?: No VTE Risk Level:: Medical - moderate - high VTE Device Contraindication: N/A - Device Ordered VTE Drug Contraindication: N/A - Med Ordered
--- NOTE | 2021-05-25 15:25 | MHC.CM.PN ---
CM INFORMED PT STATING SHE WANTS TO LEAVE. SHE REPORTS BEING AWARE THE MD IS NOT GOING TO DC HER SHE IS UNSAFE TO GO HOME ALONE. SHE REPORTS SHE IS LEAVING ON HER OWN AND REQUESTS ASSISTANCE CALLING HER NEPHEW. SHE WAS PROVIDED WITH A WORKING TELEPHONE. INFORMED BY PTS NURSE.
--- NOTE | 2021-05-25 16:10 | P.DS_ITS ---
DS: Providers Provider Date of Service: 05/25/21 Date of admission: 05/18/21 12:50 Primary care physician: Carlos Alberto Rodriges Consults: 05/18/21 16:54 Consult to Gastroenterology Routine Consulting Provider: Pérez Banda Reason for consultation: iron deficiency anemia on eliquis Has provider been notified: No 05/19/21 15:11 Consult to Pulmonology Routine Consulting Provider: [facility] Reason for consultation: copd 05/21/21 14:16 Consult to Infectious Diseases Routine Consulting Provider: Marina Goodson Reason for consultation: worsening pna DS: Diagnosis Discharge Diagnosis (1) Interstitial lung disease: Status: Acute (2) Hiatal hernia: Status: Acute (3) Iron deficiency anemia: Status: Acute (4) COPD exacerbation: Status: Acute (5) Chronic idiopathic constipation: Status: Acute (6) Aspiration pneumonia: Status: Acute DS: Summary Hospital Course Hospital Course: Chief Complaint: Shortness of breath 76-year-old female patient with past medical history significant for COPD and chronic respiratory failure on 3 L of oxygen at baseline, history of left lower extremity DVT on Eliquis, chronic back pain due to multiple vertebral fractures presented to [facility] due to acute onset of shortness of breath without associated fever, chills, in the emergency room patient was noticed to have significant hypoxia with finger oximetry in low 80s , chest x-ray showed worsening bilateral reticular interstitial changes in both lower lobes and right mid lung, WBC mildly elevated, ABGs showed normal CO2 and hypoxia, chest x-ray also showed acute T4 and T6 vertebral fractures, in the emergency room patient treated with IV steroids, updraft treatment and 10 mg of oxycodone since then she became somnolent, arousable but falls back to sleep, complaining of fall couple weeks ago with coccyx pain, denies chest pain, denies recent travel or sick contacts, admits that she lives alone, smokes few cigarettes,take 2 puffs only.? Patient is being admitted to [facility] to acute on chronic hypoxic respiratory failure, COPD exacerbation and fall. Hospital course 76yo F with COPD, chronic hypoxic respiratory failure on 3L hO2, prior DVT on apixaban presented with acute dyspnea, admitted for acute/chronic hypoxia + COPD exacerbation,also found to have iron deficiency anemia, UTI, and acute T4 + T6 vertebral compression fractures #acute/chronic hypoxic respiratory failure due to COPD exacerbation, ILD and PNA patient treated with high-flow oxygen, IV steroids and IV antibiotic she is gradually improving currently on 4-6 L of oxygen but oxygenation dropped significantly with ambulation, repeat chest x-ray was showing worsening bibasilar opacities right greater than left with probable small amount of pleural fluid felt to be related to microaspiration since patient does not follow aspiration precaution, patient seen by Physical therapy and was recommended pulmonary rehab but patient is adamant that she wants to be discharged home, patient awake alert and understand the consequences of going home with significant hypoxia, patient is on 2 L of home oxygen recommended to use 4 L of oxygen will discharge her on by mouth Levaquin and Augmentin respiratory virus panel negative, procalcitonin low, BCx negative at 48 hr, urine Legionella remains pending, pneumococcal UAGs not detected. # acute/chronic HFpEF, appears euvolemic, got 1 dose of furosemide in ED, BNP improved from 343 to 154 # UTI UCx grew Pseudomonas aeruginosa, will discharge on Levaquin for total 10 days as per ID recommendation # leukocytosis likely due to steroids and infection , stable # Iron deficiency anemia hematocrit stable around 28 , seen by GI,not stable for EGD.? hx large hiatal hernia, did not undergo imaging studies, due to ongoing hypoxia recommend to continue PPI and by mouth iron Received iron infusion # chronic aspiration seen by speech therapy and recommended to continue pureed solids and honey thick liquid # acute T4+T6 vertebral compression fractures, back pain significantly improved continue home medication # chronic LLE DVT continue apixaban # tobacco abuse smoking cessation encouraged, patient declined nicotine replacement # rheumatoid arthritis continue methotrexate Time Spent with Patient Time attestation: Total time spent providing and/or coordinating discharge services: Discharge coordination time: Greater than 30 minutes Quality: Stroke Does the patient have a stroke diagnosis?: No Physical Exam Vital Signs: Vital Signs: Last Vital Signs Temp 97.6 F 05/25/21 12:00 Pulse 80 05/25/21 12:00 Resp 18 05/25/21 12:00 BP 110/62 05/25/21 12:00 Pulse Ox 90 L 05/25/21 12:00 Oxygen Flow Rate 3 05/18/21 07:14 BMI result Body Mass Index 24.5 General:awake alert, talking in full sentences Neck: supple, no JVD Lungs: diminished bilaterally, no wheezes ,no crackles Heart: regular rate and rhythm, no murmurs Abd: soft, non-tender, non-distended, bowel sounds audible Significant kyphosis Ext: no edema Skin: warm/well-perfused chronic depigmentation upper back Neuro: alert and oriented x3, no focal findings Psych: appropriate affect DS: Data Data Completed and Pending Labs on day of discharge: Laboratory Results - last 24 hr 05/25/21 05/25/21 05:58 05:58 WBC 14.1 H RBC 4.17 L Hgb 8.1 L Hct 29.3 L MCV 70.3 L MCH 19.4 L MCHC 27.6 L RDW 24.1 H Plt Count 425 H MPV 10.2 Immature Gran % (Auto) 0.8 H Neut % (Auto) 79.9 H Lymph % (Auto) 7.4 L [place] % (Auto) 9.6 Eos % (Auto) 2.2 Baso % (Auto) 0.1 Lymph # (Auto) 1.1 L [place] # (Auto) 1.4 H Eos # (Auto) 0.3 Baso # (Auto) 0.0 Abs Immat Gran (auto) 0.12 H Absolute Neuts (auto) 11.3 H Absolute Nucleated RBC 0.030 H Nucleated RBC % (auto) 0.2 Sodium 139 Potassium 4.3 Chloride 103 Carbon Dioxide 32 H Anion Gap 8 L BUN 13 Creatinine 0.65 Estim Creat Clear Calc 59.9 Estimated GFR > 60 Random Glucose 144 H Calcium 9.4 Discharge Plan Discharge Patient Disposition: Left Against Medical Advice Discharge Diagnosis: Acute on chronic hypoxic respiratory failure Aspiration pneumonia Iron deficiency anemia Hiatal hernia Referrals: Carlos Alberto Rodriges [Primary Care Provider] - 1 Week Discharge Medications: New levofloxacin 500 mg tablet 500 mg PO DAILY 5 Days Qty: 5 RF: 0 amoxicillin-pot clavulanate [Augmentin] 875-125 mg tablet 1 tab PO BID Qty: 10 RF: 0 prednisone 20 mg tablet 20 mg PO DAILY Qty: 5 RF: 0 Continued bisacodyl [Dulcolax (bisacodyl)] 5 mg tablet,delayed release (DR/EC) 10 mg PO BEDTIME 30 Days Qty: 60 RF: 3 zolpidem 5 mg tablet 1 tab PO BEDTIME PRN (Reason: Insomnia) RF: 0 pregabalin 150 mg capsule 1 cap PO BID RF: 0 risedronate 150 mg tablet 1 tab PO QMONTH RF: 0 Linzess 290 mcg capsule 290 mcg PO BEDTIME RF: 0 clonazepam 1 mg tablet 1 mg PO BEDTIME PRN (Reason: Insomnia) RF: 0 cyanocobalamin (vitamin B-12) 1,000 mcg tablet 1,000 mcg PO BEDTIME RF: 0 calcium carbonate-vitamin D3 600 mg(1,500mg) -200 unit tablet 1 tab PO DAILY RF: 0 omeprazole 40 mg capsule,delayed release(DR/EC) 40 mg PO DAILY RF: 0 methotrexate sodium 2.5 mg tablet 10 mg PO SA RF: 0 docusate sodium 100 mg capsule 100 mg PO BID RF: 0 folic acid 1 mg tablet 1 mg PO BID RF: 0 gabapentin 100 mg capsule 200 mg PO BEDTIME RF: 0 oxycodone 5 mg tablet 5 mg PO TID PRN (Reason: Pain) RF: 0 Anoro Ellipta 62.5-25 mcg/actuation Blister With Device 1 inh INHALATION DAILY RF: 0 Combivent Respimat 20-100 mcg/actuation Mist 1 puff INHALATION Q6H PRN (Reason: Wheezing) RF: 0 Eliquis 5 mg Tablet 5 mg PO BID Qty: 72 RF: 0 Discharge Orders: Discharge Order (Routine); Ordered 05/25/21 Ordered By: Tu Henderson Diet: low fat, low cholesterol Activity on Discharge: As tolerated Care Plan Goals: Acute on chronic hypoxic respiratory failure persistent hypoxia worse with ambulation patient recommended to be discharged to pulmonary rehab however she is adamant to leave Hospital against medical advice patient is aware of risk of profound hypoxia syncope and , informed patient to return to check with any worsening symptoms of shortness of breath lightheadedness dizziness. Health Concerns: Take on above medications as before strongly recommend to abstain from smoking continue oxygen 4 L at home Plan of Treatment: Follow-up with primary care physician in next 5-7 days. Out patient follow-up with gastroenterology and pulmonology in next 1-2 weeks Assessment: As above
[2021-05-25 20:11] LABS: Legionella Ag Urine Not Detected (Not Detected)
[2021-05-29 00:26] LABS: Strep Pneumo Ag urine Not Detected (Not Detected)
== END 2021-05-25 16:47 | disposition left against medical advice (07) | DRG 177 ==
LOC: HO.ED 10:39 → HO.EDOVER 20:26 → HO.S3 23:01 → HO.IMC 05-19 18:28
PROVIDERS: Family Medicine; Admitting Provider Hospitalist; Emergency Provider Emergency Medicine; PCP Hospitalist; Visit Provider Hospitalist
DX: J69.0 Pneumonitis due to inhalation of food and vomit (principal); J96.21 Acute and chronic respiratory failure with hypoxia; I50.33 Acute on chronic diastolic (congestive) heart failure; J44.1 Chronic obstructive pulmonary disease with (acute) exacerbation; N39.0 Urinary tract infection, site not specified; I82.502 Chronic embolism and thrombosis of unspecified deep veins of left lower extremity; M48.54XA Collapsed vertebra, not elsewhere classified, thoracic region, initial encounter for fracture; K59.04 Chronic idiopathic constipation; Z20.822 Contact with and (suspected) exposure to COVID-19; M06.9 Rheumatoid arthritis, unspecified; F31.9 Bipolar disorder, unspecified; G89.29 Other chronic pain; I73.00 Raynaud's syndrome without gangrene; D50.9 Iron deficiency anemia, unspecified; K21.9 Gastro-esophageal reflux disease without esophagitis; B96.5 Pseudomonas (aeruginosa) (mallei) (pseudomallei) as the cause of diseases classified elsewhere; D72.829 Elevated white blood cell count, unspecified; G62.9 Polyneuropathy, unspecified; K44.9 Diaphragmatic hernia without obstruction or gangrene; F17.210 Nicotine dependence, cigarettes, uncomplicated; Z91.19 Patient's noncompliance with other medical treatment and regimen; Z71.6 Tobacco abuse counseling; Z99.81 Dependence on supplemental oxygen; Z79.01 Long term (current) use of anticoagulants; Z79.899 Other long term (current) drug therapy
CPT/HCPCS: 0241U; 36415; 71045; 80048; 80076; 81001; 82803; 83540; 83605; 83690; 83880; 84145; 84484; 85025; 85027; 86850; 86900; 86901; 87040; 87086; 87088; 87186; 87449; 87633; 87899; 92610; 93005; 93306; 94640; 96365; 96366; 96375; 97116; 97163; 97530; 99285; J0696; J1940; J1956; J2270; J2543; J2916; J2920; J2930; J3475

== ENCOUNTER 2021-06-01 12:44 | Emergency (ER) | payer MEDICARE, SELFPAY ==
--- NOTE | ~2021-06-01 | XR_ITS ---
EXAMINATION: XR CHEST CLINICAL INFORMATION: Shortness of breath COMPARISON: Chest radiographs 05/21/2021, 05/18/2021, CTA chest 03/31/2021 TECHNIQUE: Sitting AP and lateral views of the chest are obtained. FINDINGS: There are chronic changes again seen with coarsening interstitial markings and lobulated calcified nodule left apex. The bibasilar airspace opacities and small effusions are decreased from prior exam 05/21/2021. Suspect scattered new groundglass opacities mid right lung zone. No lobar or segmental airspace consolidation. The heart is normal in size. The vascularity is normal. There is no pneumothorax. Large hiatal hernia is again seen. No acute bony abnormality. Multilevel degenerative changes with accentuated thoracic kyphosis and prior vertebral augmentation lower thoracic and lumbar spine again noted. XR/XR chest 2V IMPRESSION: 1. Scattered new groundglass opacities right mid lung zone since 05/21/2021. 2. Bibasilar airspace opacities and small effusions decreased.
[2021-06-01 12:55] VITALS: BP 106/67; BP 114/82; PULSE 82; RESP 18; TEMP 36.6; O2SAT 97; O2SAT 98; BMI 21.6
--- NOTE | 2021-06-01 12:59 | ECG_ITS ---
Test Reason : DYSPNEA Blood Pressure : / mmHG Vent. Rate : 087 BPM Atrial Rate : 087 BPM P-R Int : 144 ms QRS Dur : 078 ms QT Int : 360 ms P-R-T Axes : 033 -22 035 degrees QTc Int : 433 ms Normal sinus rhythm Normal ECG When compared with ECG of 18-MAY-2021 07:51, No significant change was found Referred By: Ankita Munoz Electronically Signed By:YESSY JUNG MD
--- NOTE | 2021-06-01 13:14 | ED_ITS ---
HPI - SOB/Dyspnea General Chief Complaint: Dyspnea Stated Complaint: SOB [facility], ON HOME O2 Time Seen by Provider: 06/01/21 12:55 Source: patient Mode of arrival: ambulatory Limitations: no limitations History of Present Illness HPI Narrative: 76-year-old female patient with past medical history significant for COPD and chronic respiratory failure on 3 L of oxygen at baseline, history of left lower extremity DVT on Eliquis, chronic back pain due to multiple vertebral fractures your with reports of shortness of breath. Per report from EMS the patient without a doctor's appointment when she was noted to be short of breath by her EXECUTIVE [employer] and the ambulance was called. The patient tells me that her breathing is at baseline. She has not had any increasing oxygen requirements. She denies any associated cough, fevers, chills, chest pain, lower extremity swelling, weight gain. No vomiting or diarrhea or abdominal pain. She does have chronic back pain. Patient tells me she was admitted to this facility and discharged on May 25 for aspiration pneumonia discharged on Levaquin and Augmentin, COPD exacerbation, acute on chronic heart failure, UTI, acute T4 and T6 vertebral compression fractures. Patient tells me she has been doing well at home and taking her medications as prescribed Related Data Home Medications Medication Instructions Recorded Confirmed calcium carbonate 600 mg-vitamin 1 tab PO DAILY 03/31/21 05/18/21 D3 5 mcg (200 unit) tablet clonazepam 1 mg tablet 1 mg PO BEDTIME PRN 03/31/21 05/18/21 cyanocobalamin (vitamin B-12) 1,000 mcg PO BEDTIME 03/31/21 05/18/21 1,000 mcg tablet docusate sodium 100 mg capsule 100 mg PO BID 03/31/21 05/18/21 folic acid 1 mg tablet 1 mg PO BID 03/31/21 05/18/21 gabapentin 100 mg capsule 200 mg PO BEDTIME 03/31/21 05/18/21 ipratropium 20 mcg-albuterol 100 1 puff INHALATION Q6H PRN 03/31/21 05/18/21 mcg/actuation mist for inhalation (Combivent Respimat) methotrexate sodium 2.5 mg tablet 10 mg PO SA 03/31/21 05/18/21 omeprazole 40 mg capsule,delayed 40 mg PO DAILY 03/31/21 05/18/21 release oxycodone 5 mg tablet 5 mg PO TID PRN 03/31/21 05/18/21 umeclidinium 62.5 mcg-vilanterol 1 inh INHALATION DAILY 03/31/21 05/18/21 25 mcg/actuation powdr for inhalation (Anoro Ellipta) linaclotide 290 mcg capsule 290 mcg PO BEDTIME 05/18/21 05/18/21 (Linzess) pregabalin 150 mg capsule 1 cap PO BID 05/18/21 05/18/21 risedronate 150 mg tablet 1 tab PO QMONTH 05/18/21 05/18/21 zolpidem 5 mg tablet 1 tab PO BEDTIME PRN 05/18/21 05/18/21 Previous Rx's Medication Instructions Recorded apixaban 5 mg tablet (Eliquis) 5 mg PO BID #72 tab 04/01/21 bisacodyl 5 mg tablet,delayed 10 mg PO BEDTIME 30 Days #60 tab 05/15/21 release (Dulcolax (bisacodyl)) amoxicillin 875 mg-potassium 1 tab PO BID #10 tab 05/25/21 clavulanate 125 mg tablet (Augmentin) levofloxacin 500 mg tablet 500 mg PO DAILY 5 Days #5 tab 05/25/21 prednisone 20 mg tablet 20 mg PO DAILY #5 tab 05/25/21 amoxicillin 875 mg-potassium 1 tab PO BID #14 tab 06/01/21 clavulanate 125 mg tablet (Augmentin) Allergies Allergy/AdvReac Type Severity Reaction Status Date / Time loratadine [From CLARITIN] Allergy Unknown MOUTH SORE Verified 05/18/21 07:14 Review of Systems Review of Systems: Yes all other systems are reviewed and are negative Constitutional: Constitutional: Reports no additional constitutional complaints, Denies body ache(s), Denies chills, Denies fever(s), Denies headache(s) and Denies weakness Eyes: Eyes: Reports no additional eye complaints and Denies change in vision ENT: Reports system reviewed and no additional complaints, except as documented, Denies dizziness, Denies headache(s), Denies nasal congestion, Denies nasal discharge and Denies neck pain Cardiovascular: Cardiovascular: Reports no additional cardiovascular complaints, Denies chest pain, Denies leg edema and Reports dyspnea Respiratory: Respiratory: Reports no additional respiratory complaints, Denies cough and Reports dyspnea Gastrointestinal: Gastrointestinal: Reports no additional gastrointestinal complaints, Denies abdominal pain, Denies diarrhea, Denies nausea and Denies vomiting Genitourinary: Genitourinary: Reports no additional female genitourinary complaints and Denies urinary incontinence Musculoskeletal: Musculoskeletal: Reports no additional musculoskeletal complaints, Denies back pain, Denies arthralgias, Denies joint swelling, Denies neck pain, Denies numbness and Denies tingling Integumentary/Breasts: Skin/Breast: Reports system reviewed and no additional complaints, except as docu and Denies rash Neurologic: Reports system reviewed and no additional complaints, except as documented, Denies Abnormal speech present, Denies dizziness, Denies headache(s), Denies numbness, Denies tingling and Denies weakness PMFSH Past Medical History Attestation statement: The following information was validated with the patient. Source: old records reviewed and nursing notes reviewed Medical History Chronic respiratory failure with hypoxia Compression fracture of T9 vertebra COPD (chronic obstructive pulmonary disease) DVT (deep venous thrombosis) Hiatal hernia History of diverticulitis History of treatment for tuberculosis Interstitial lung disease Left rib fracture Opioid abuse Rash Rib pain on left side Rib pain on right side Surgical History H/O colonoscopy H/O esophagogastroduodenoscopy Social History Social History Household Members: None Housing: House Do you presently have visiting nurse or other home services: No (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) Alcohol intake: unknown Patient Tobacco Use Status: Current everyday Tobacco user Tobacco use type: Cigarette Cigarettes Per Day: 2 Use of substances other than those prescribed or required for medical reasons: Unknown Advance Directives: No Advance Directives Information Provided: No service: No Current occupational status: retired Physical Exam Vital Signs: Vital Signs: Last Vital Signs Temp 97.8 F 06/01/21 15:58 Pulse 85 06/01/21 15:58 Resp 18 06/01/21 15:58 BP 118/74 06/01/21 15:58 Pulse Ox 88 L 06/01/21 15:58 Oxygen Flow Rate 3 12/16/21 12:55 BMI result Body Mass Index 21.6 Const: Other: Disheveled General: cooperative and alert Orientation/consciousness: patient oriented x3 Limitations: no limitations HENMT: Head: Yes normal to inspection Ears: hearing grossly normal bilaterally General nose exam: Normal external nose present Face and sinus: Yes normal facial exam Mouth: Normal oral and palatal mucosa present Throat: Yes posterior oropharynx normal Eyes: General: appearance normal, both eyes and all related structures Pupils: Equal, round and reactive pupils present Neck: Neck: Yes normal visual inspection Chest: Chest palpation & inspection: normal inspection of the chest Resp: Effort & Inspection: normal respiratory effort Auscultation: clear to auscultation bilaterally Cardio: Rate: regular rate Rhythm: regular rhythm Peripheral pulses: Peripheral pulses 2+ throughout GI: Inspection: Yes normal to inspection Palpation (GI): Soft to palpation and nontender Auscultation: normal bowel sounds Back/Spine/Pelvis: Other: Tenderness over the vertebral spine with no step-of fs or deformities. Thoracic/Lumbar Spine: thoracic and lumbar spine normal to inspection Skin: General skin exam: no rashes or lesions noted Neuro: General: patient oriented x3, no focal motor deficits and normal sensation to monofilament Cranial nerves: Yes Equal, round and reactive pupils present Cognition (Neuro): normal cognition Speech: No Abnormal speech present Gait exam (Neuro): Normal gait present Motor exam (neuro): 5/5 motor strength present throughout Extrem: General: Yes normal to inspection, Yes no pedal edema and Yes no calf tenderness Course Course Course Narrative: 76-year-old female here with reports of shortness of breath. Patient was at doctor's office for follow-up when she was noted to be short of breath by staff and an ambulance was called. Patient denies any shortness of breath. She tells me that she always has some mild shortness of breath secondary to underlying COPD but has had no increase increase in oxygen requirements, no chest pain, no fevers, no cough. She is currently being treated for aspiration pneumonia on Augmentin and Levaquin after leaving AMA from this hospital 05/25. She tells me she has been compliant with his ar dications. On arrival the patient appears well. There is no tachypnea. Her vitals are stable. She does have some mid back pain over the vertebral spine has known compression fractures. No new injury or trauma. Will check labs, COVID screen, EKG and chest x-ray. Patient wants to go home so anticipate dispo home 1745-chest x-ray shows persistent pneumonia. The patient is still hypoxic 88% o n her home oxygen of 3 L. She denies any tachypnea and she feels well. Her labs are all unremarkable. Her EKG shows no new changes. I recommend the patient be admitted due to her persistent pneumonia and hypoxia despite her home oxygen. However she is refusing to stay. She is aware that she may continue to decline at home. She did complete her antibiotics and so I will start a new course of 7 days of Augmentin. Recommended patient return at any time for admission. MDM - SOB/Dyspnea Medical Records Attestation: I reviewed the patient's medical records. Lab Data Attestation: I reviewed the patient's lab results. Result diagrams: 06/01/21 17:07 06/01/21 17:06 Labs: Lab Results 06/01/21 06/01/21 06/01/21 Range/Units 17:06 17:06 17:07 WBC 16.2 H (4.8-10.8) X10*3/uL RBC 5.01 D (4.20-5.50) X10*6/uL Hgb 10.2 L D (12.0-16.0) g/dl Hct 35.8 L D (37.0-47.0) % MCV 71.5 L (80.0-98.0) fL MCH 20.4 L (27.0-33.0) pg MCHC 28.5 L (31.0-35.0) g/dl RDW 27.7 H (11.0-16.0) % Plt Count 451 H (160-400) X10*3/uL MPV 9.8 (9.4-12.3) fL Immature Gran % (Auto) 0.5 H (0.0-0.4) % Neut % (Auto) 88.3 H (45-73) % Lymph % (Auto) 5.9 L (20-40) % [place] % (Auto) 4.9 (2-11) % Eos % (Auto) 0.3 (0-4) % Baso % (Auto) 0.1 (0-2) % Lymph # (Auto) 1.0 L (1.2-4.9) X10*3/uL [place] # (Auto) 0.8 (0.1-1.2) X10*3/uL Eos # (Auto) 0.1 (0.0-0.4) X10*3/uL Baso # (Auto) 0.0 (0.0-0.2) X10*3/uL Abs Immat Gran (auto) 0.08 H (0.00-0.03) X10*3/uL Absolute Neuts (auto) 14.3 H (2.0-8.3) x10*3/uL Absolute Nucleated RBC 0.000 (0.0-0.012) X10*3/uL Nucleated RBC % (auto) 0.0 (0.0-0.2) /100WBC Sodium 141 (135-145) mmol/L Potassium 3.9 (3.3-5.1) mmol/L Chloride 108 (96-108) mmol/L Carbon Dioxide 27 (22-29) mmol/L Anion Gap 10 L (12-20) BUN 8 L (9-16) mg/dL Creatinine 0.74 (0.5-1.4) mg/dL Estim Creat Clear Calc 60.0 Estimated GFR > 60 Random Glucose 171 H (60-115) mg/dL Calcium 9.6 (8.4-10.2) mg/dL Total Bilirubin 0.7 (0.0-1.0) mg/dL Direct Bilirubin 0.3 (0.0-0.5) mg/dL AST 12 (5-31) U/L ALT 15 (0-31) U/L Alkaline Phosphatase 116 (39-117) U/L Troponin I High Sens < 3.5 D (<3.5-17.0) ng/L B-Natriuretic Peptide 92 (<100) pg/mL Total Protein 6.0 L (6.5-8.0) g/dL Albumin 3.4 L (3.5-5.0) g/dL COVID-19 ([facility]) (Negative) COVID-19 Clin Com 06/01/21 Range/Units 17:07 WBC (4.8-10.8) X10*3/uL RBC (4.20-5.50) X10*6/uL Hgb (12.0-16.0) g/dl Hct (37.0-47.0) % MCV (80.0-98.0) fL MCH (27.0-33.0) pg MCHC (31.0-35.0) g/dl RDW (11.0-16.0) % Plt Count (160-400) X10*3/uL MPV (9.4-12.3) fL Immature Gran % (Auto) (0.0-0.4) % Neut % (Auto) (45-73) % Lymph % (Auto) (20-40) % [place] % (Auto) (2-11) % Eos % (Auto) (0-4) % Baso % (Auto) (0-2) % Lymph # (Auto) (1.2-4.9) X10*3/uL [place] # (Auto) (0.1-1.2) X10*3/uL Eos # (Auto) (0.0-0.4) X10*3/uL Baso # (Auto) (0.0-0.2) X10*3/uL Abs Immat Gran (auto) (0.00-0.03) X10*3/uL Absolute Neuts (auto) (2.0-8.3) x10*3/uL Absolute Nucleated RBC (0.0-0.012) X10*3/uL Nucleated RBC % (auto) (0.0-0.2) /100WBC Sodium (135-145) mmol/L Potassium (3.3-5.1) mmol/L Chloride (96-108) mmol/L Carbon Dioxide (22-29) mmol/L Anion Gap (12-20) BUN (9-16) mg/dL Creatinine (0.5-1.4) mg/dL Estim Creat Clear Calc Estimated GFR Random Glucose (60-115) mg/dL Calcium (8.4-10.2) mg/dL Total Bilirubin (0.0-1.0) mg/dL Direct Bilirubin (0.0-0.5) mg/dL AST (5-31) U/L ALT (0-31) U/L Alkaline Phosphatase (39-117) U/L Troponin I High Sens (<3.5-17.0) ng/L B-Natriuretic Peptide (<100) pg/mL Total Protein (6.5-8.0) g/dL Albumin (3.5-5.0) g/dL COVID-19 ([facility]) Negative (Negative) COVID-19 Clin Com See Note Imaging Data Chest x-ray: Attestation: I personally reviewed and interpreted this imaging study as amanda nelson: Radiologist's impression: FINDINGS: There are chronic changes again seen with coarsening interstitial markings and lobulated calcified nodule left apex. The bibasilar airspace opacities and small effusions are decreased from prior exam 05/21/2021. Suspect scattered new groundglass opacities mid right lung zone. No lobar or segmental airspace consolidation. The heart is normal in size. The vascularity is normal. There is no pneumothorax. Large hiatal hernia is again seen. No acute bony abnormality. Multilevel degenerative changes with accentuated thoracic kyphosis and prior vertebral augmentation lower thoracic and lumbar spine again noted. XR/XR chest 2V IMPRESSION: ? 1. Scattered new groundglass opacities right mid lung zone since 05/21/2021. 2. Bibasilar airspace opacities and small effusions decreased. ? ECG Data Attestation: I personally reviewed and interpreted this ECG as follows: ECG interpretation date: 06/01/21 ECG interpretation time: 15:26 Interpretation: Normal sinus rhythm with a rate 87, normal RI, normal QRS, normal QT. ST changes in V1 and V2 which are not new when compared to previous EKG Discharge Plan Discharge Clinical Impression: Pneumonia Patient Disposition: Left Against Medical Advice Instructions: Aspiration Pneumonia (DC), Against Medical Advice (ED) Additional Instructions: It was recommended that you be admitted to the hospital due to your oxygen levels and your pneumonia which is still showing up on x-ray even though you took your course of antibiotics. However you declined this. You are welcome to return at any time Prescriptions: New amoxicillin-pot clavulanate [Augmentin] 875-125 mg tablet 1 tab PO BID Qty: 14 RF: 0 No Action bisacodyl [Dulcolax (bisacodyl)] 5 mg tablet,delayed release (DR/EC) 10 mg PO BEDTIME 30 Days Qty: 60 RF: 3 zolpidem 5 mg tablet 1 tab PO BEDTIME PRN (Reason: Insomnia) RF: 0 pregabalin 150 mg capsule 1 cap PO BID RF: 0 risedronate 150 mg tablet 1 tab PO QMONTH RF: 0 Linzess 290 mcg capsule 290 mcg PO BEDTIME RF: 0 levofloxacin 500 mg tablet 500 mg PO DAILY 5 Days Qty: 5 RF: 0 amoxicillin-pot clavulanate [Augmentin] 875-125 mg tablet 1 tab PO BID Qty: 10 RF: 0 prednisone 20 mg tablet 20 mg PO DAILY Qty: 5 RF: 0 clonazepam 1 mg tablet 1 mg PO BEDTIME PRN (Reason: Insomnia) RF: 0 cyanocobalamin (vitamin B-12) 1,000 mcg tablet 1,000 mcg PO BEDTIME RF: 0 calcium carbonate-vitamin D3 600 mg(1,500mg) -200 unit tablet 1 tab PO DAILY RF: 0 omeprazole 40 mg capsule,delayed release(DR/EC) 40 mg PO DAILY RF: 0 methotrexate sodium 2.5 mg tablet 10 mg PO SA RF: 0 docusate sodium 100 mg capsule 100 mg PO BID RF: 0 folic acid 1 mg tablet 1 mg PO BID RF: 0 gabapentin 100 mg capsule 200 mg PO BEDTIME RF: 0 oxycodone 5 mg tablet 5 mg PO TID PRN (Reason: Pain) RF: 0 Anoro Ellipta 62.5-25 mcg/actuation Blister With Device 1 inh INHALATION DAILY RF: 0 Combivent Respimat 20-100 mcg/actuation Mist 1 puff INHALATION Q6H PRN (Reason: Wheezing) RF: 0 Eliquis 5 mg Tablet 5 mg PO BID Qty: 72 RF: 0 Referrals: Carlos Alberto Rodriges [Primary Care Provider] - 2 days Stand Alone Forms: Against Medical Advice
--- NOTE | 2021-06-01 15:14 | PC.NURSE ---
pt is a difficult stick
[2021-06-01 15:58] VITALS: BP 118/74; PULSE 85; RESP 18; TEMP 36.6; O2SAT 88
--- NOTE | 2021-06-01 15:59 | PC.NURSE ---
pt can't explain exactly why she is here, states i think it's cause of my back . awaits phlebotomy.
[2021-06-01 17:12] LABS: MANUAL DIFF FLAG NO
[2021-06-01 17:14] LABS: Basophils Percent Auto 0.1 % (0-2); Eosinophils Absolute Auto 0.1 X10*3/uL (0.0-0.4); Eosinophils Percent Auto 0.3 % (0-4); Hematocrit 35.8 % (37.0-47.0); Hemoglobin 10.2 g/dl (12.0-16.0); Imm Gran Abs Auto 0.08 X10*3/uL (0.00-0.03); Imm Gran Pct Auto 0.5 % (0.0-0.4); Lymphocytes Percent Auto 5.9 % (20-40); Mean Corpuscular HGB Conc 28.5 g/dl (31.0-35.0); Mean Corpuscular Hemoglobin 20.4 pg (27.0-33.0); Mean Corpuscular Volume 71.5 fL (80.0-98.0); Mean Platelet Volume 9.8 fL (9.4-12.3); Monocytes Absolute Auto 0.8 X10*3/uL (0.1-1.2); Monocytes Percent Auto 4.9 % (2-11); Neutrophils Absolute Auto 14.3 x10*3/uL (2.0-8.3); Neutrophils Percent Auto 88.3 % (45-73); Platelet Count 451 X10*3/uL (160-400); Red Blood Count 5.01 X10*6/uL (4.20-5.50); Red Cell Distribution Width 27.7 % (11.0-16.0); White Blood Count 16.2 X10*3/uL (4.8-10.8)
[2021-06-01 17:33] LABS: COVID-19 Test Negative (Negative)
[2021-06-01 17:33] LABS: Alanine Aminotransferase 15 U/L (0-31); Albumin Level 3.4 g/dL (3.5-5.0); Alkaline Phosphatase 116 U/L (39-117); Anion Gap 10 (12-20); Aspartate Amino Transferase 12 U/L (5-31); Bilirubin Direct 0.3 mg/dL (0.0-0.5); Bilirubin Total 0.7 mg/dL (0.0-1.0); Blood Urea Nitrogen 8 mg/dL (9-16); Calcium 9.6 mg/dL (8.4-10.2); Carbon Dioxide 27 mmol/L (22-29); Chloride 108 mmol/L (96-108); Estimated Glomerular Filt Rate > 60; Glucose Random 171 mg/dL (60-115); Potassium 3.9 mmol/L (3.3-5.1); Sodium 141 mmol/L (135-145)
[2021-06-01 17:39] LABS: B Type Natriuretic Peptide 92 pg/mL (<100); Troponin-I High Sensitivity < 3.5 ng/L (<3.5-17.0)
== END 2021-06-01 18:20 | disposition left against medical advice (07) ==
PROVIDERS: Nurse Practitioner Family; Emergency Provider Emergency Medicine; PCP Hospitalist
DX: J18.9 Pneumonia, unspecified organism (principal); R06.02 Shortness of breath; Z20.822 Contact with and (suspected) exposure to COVID-19; J44.9 Chronic obstructive pulmonary disease, unspecified; F17.200 Nicotine dependence, unspecified, uncomplicated; Z86.718 Personal history of other venous thrombosis and embolism; Z99.81 Dependence on supplemental oxygen; Z79.01 Long term (current) use of anticoagulants
CPT/HCPCS: 36415; 71046; 80048; 80076; 83880; 84484; 85025; 87635; 93005; 99283; 99284

== ENCOUNTER 2021-06-10 17:53 | Inpatient (IN) | payer MEDICARE, SELFPAY ==
--- NOTE | ~2021-06-10 | CT_ITS ---
EXAMINATION: CT ANGIOGRAM OF THE CHEST WITH AND WITHOUT CONTRAST (CT PULMONARY ANGIOGRAM FOR PE) CLINICAL INFORMATION: Reason for Exam PE? Pneumonia? SOB COMPARISON: CT angiogram chest 03/31/2021 TECHNIQUE: Prior to contrast administration, noncontrast localization images were obtained. Subsequently, multidetector volumetric imaging was performed from the thoracic inlet to below the diaphragms following the administration of 60 mL Omnipaque 350 intravenous contrast. No contrast reaction reported Sagittal, coronal, and MIP oblique sagittal reformatted images were obtained on the CT workstation, uploaded to PACS, and reviewed. This CT examination was performed using dose optimization techniques as appropriate, variously including the following: *Automated exposure control *Adjustment of mA and/or kV according to patient size (this includes techniques or standardized protocols for targeted exams where dose is matched to indication/reason for exam; i.e. extremities or head) *Use of iterative reconstruction technique Total exam dose-length product 197 mGy-cm FINDINGS: QUALITY OF STUDY/CONTRAST BOLUS: Satisfactory. PULMONARY ARTERIES: No central or segmental pulmonary emboli. THORACIC AORTA: No aneurysm or dissection. Of note, a stenosis was present of the proximal left subclavian artery previously which appears slightly progressed and now there is acute thrombus present within the left subclavian artery beginning 1 cm after its origin from the thoracic aorta. It is free floating measuring 4 mm in diameter and nearly 2 cm in length. The proximal portion is adherent to the wall at the site of the stenosis. No other thrombi or great vessel emboli are seen. LUNG: Again seen are changes of severe emphysema throughout the lungs. Calcified granulomas noted in the left upper lobe. Bronchial wall thickening is again noted in the right lower lobe. There is new atelectasis/collapse/consolidation in the right middle lobe and left lower lobe abutting the major fissures. PLEURA: No pleural effusion or pneumothorax. MEDIASTINUM: Normal heart size. No pericardial effusion. No hilar or mediastinal lymphadenopathy. No evidence of septal bowing or right heart strain. CHEST WALL/AXILLA: No axillary or internal mammary lymphadenopathy. OSSEOUS STRUCTURES: Marked kyphosis with multiple compression fractures along with kyphoplasty changes similar to the study from 03/31/2021 UPPER ABDOMEN: A large hiatal hernia is again seen there is partial visualization of a mildly dilated abdominal aorta 2.7 cm with eccentric plaque. No reflux of contrast into the hepatic veins to suggest elevated right heart pressures. CT/CT angio chest PE protocol IMPRESSION: 1. No evidence of pulmonary emboli 2. Interval development of new free-floating thrombus in the left subclavian artery with a single attachment to the wall inferiorly. 3. New right middle lobe and left lower lobe atelectasis/consolidation. 4. Other incidental findings as described above VTE: negative This critical result was discussed with SURENDRA De Leon at 10:15 PM on the day of the exam and it was ascertained that the content and urgency of the report was understood at the time of direct communication.
--- NOTE | ~2021-06-10 | XR_ITS ---
EXAMINATION: XR CHEST CLINICAL INFORMATION: Pneumonia COMPARISON: 06/01/2021 as well as the oldest chest x-rays which date back to 07/08/2018, just under 2 years ago TECHNIQUE: Frontal view of the chest was obtained. FINDINGS: Heart size normal. Pulmonary vascularity is normal and there is no evidence of CHF. Again seen is a large hiatal hernia and vertebroplasty changes. Calcified granulomas are present in the left upper lobe. Compared with the prior study, has been improvement in appearances of the groundglass opacities predominantly in the right middle lobe, but considerable abnormality still persists. There is probably some interval improvement in findings that may have been present at the left lung base as well. When one compares the current study with the old this exam, it is apparent that some of the changes are chronic in nature. XR/XR chest 1V IMPRESSION: Some improvement in appearances of groundglass opacities but considerable abnormality still persists, some of which is chronic.
--- NOTE | ~2021-06-10 | XR_ITS ---
EXAMINATION: XR CHEST CLINICAL INFORMATION: COPD exacerbation. COMPARISON: CTA of the chest dated from 06/10/2021. Chest radiograph dated from 06/10/2025. TECHNIQUE: AP view of the chest was obtained. FINDINGS: Multifocal airspace opacities predominantly within the right middle lobe and left lower lobe are not significantly changed. A large calcified granuloma in the left upper lobe is redemonstrated. Unchanged prominence of the cardiomediastinal silhouette with a large hiatal hernia. Kyphoplasty changes similar to prior. XR/XR chest 1V IMPRESSION: No significantly changed since 06/10/2021.
[2021-06-10 18:03] VITALS: BP 125/69; PULSE 120; O2SAT 90
--- NOTE | 2021-06-10 18:19 | ECG_ITS ---
Test Reason : SOB Blood Pressure : / mmHG Vent. Rate : 109 BPM Atrial Rate : 109 BPM P-R Int : 140 ms QRS Dur : 074 ms QT Int : 360 ms P-R-T Axes : 055 -23 038 degrees QTc Int : 484 ms Sinus tachycardia Otherwise normal ECG When compared with ECG of 01-JUN-2021 15:26, QT has lengthened Referred By: Marcin Melo Electronically Signed By:Cruzito Dozier
[2021-06-10 18:25] VITALS: PULSE 119; PULSE 120; RESP 24; RESP 31; O2SAT 88; O2SAT 90; BMI 21.2
[2021-06-10] MEDS: Albuterol/Iprat 2.5/0.5MG 3 ML AMPUL.NEB INHALE (18:25)
--- NOTE | 2021-06-10 18:26 | ED.FALL ---
HPI - Fall General Chief Complaint: Upper Respiratory Symptoms Stated Complaint: SOB Time Seen by Provider: 06/10/21 18:04 Source: patient Mode of arrival: ambulatory Limitations: no limitations History of Present Illness HPI Narrative: 76-year-old with past medical history of COPD presents to the ED for shortness of breath for the past 2 days. Patient recently admitted for pneumonia. Patient denies any leg swelling, calf pain, coughing up blood. Patient also complains of chronic back pain exacerbation Related Data Home Medications Medication Instructions Recorded Confirmed calcium carbonate 600 mg-vitamin 1 tab PO DAILY 03/31/21 06/11/21 D3 5 mcg (200 unit) tablet cyanocobalamin (vitamin B-12) 1,000 mcg PO BEDTIME 03/31/21 05/18/21 1,000 mcg tablet docusate sodium 100 mg capsule 100 mg PO BID 03/31/21 05/18/21 folic acid 1 mg tablet 1 mg PO BID 03/31/21 05/18/21 methotrexate sodium 2.5 mg tablet 10 mg PO SA 03/31/21 05/18/21 omeprazole 40 mg capsule,delayed 40 mg PO DAILY 03/31/21 06/11/21 release oxycodone 5 mg tablet 5 mg PO TID PRN 03/31/21 06/11/21 umeclidinium 62.5 mcg-vilanterol 1 inh INHALATION DAILY 03/31/21 06/11/21 25 mcg/actuation powdr for inhalation (Anoro Ellipta) linaclotide 290 mcg capsule 290 mcg PO BEDTIME 05/18/21 06/11/21 (Linzess) pregabalin 150 mg capsule 1 cap PO BID 05/18/21 05/18/21 risedronate 150 mg tablet 1 tab PO QMONTH 05/18/21 06/11/21 zolpidem 5 mg tablet 1 tab PO BEDTIME PRN 05/18/21 06/11/21 prednisone 20 mg tablet 10 mg PO DAILY 06/11/21 06/11/21 Previous Rx's Medication Instructions Recorded apixaban 5 mg tablet (Eliquis) 5 mg PO BID #72 tab 04/01/21 bisacodyl 5 mg tablet,delayed 10 mg PO BEDTIME 30 Days #60 tab 05/15/21 release (Dulcolax (bisacodyl)) Allergies Allergy/AdvReac Type Severity Reaction Status Date / Time loratadine [From CLARITIN] Allergy Unknown MOUTH SORE Verified 05/18/21 07:14 Review of Systems Review of Systems: Yes all other systems are reviewed and are negative Constitutional: Constitutional: Reports as per HPI and Reports no additional constitutional complaints Eyes: Eyes: Reports as per HPI and Reports no additional eye complaints ENT: Reports system reviewed and no additional complaints, except as documented and Reports as per HPI Cardiovascular: Cardiovascular: Reports as per HPI, Reports no additional cardiovascular complaints and Reports dyspnea Respiratory: Respiratory: Reports as per HPI, Reports no additional respiratory complaints, Reports dyspnea and Reports wheezing Gastrointestinal: Gastrointestinal: Reports as per HPI and Reports no additional gastrointestinal complaints Genitourinary: Genitourinary: Reports no additional female genitourinary complaints and Reports as per HPI Musculoskeletal: Musculoskeletal: Reports no additional musculoskeletal complaints, Reports as per HPI and Reports back pain Integumentary/Breasts: Skin/Breast: Reports system reviewed and no additional complaints, except as docu and Reports as per HPI Neurologic: Reports system reviewed and no additional complaints, except as documented and Reports as per HPI Psychiatric: Psychiatric: Reports no additional psychiatric complaints and Reports as per HPI Allergic/Immunologic: Allergic/Immunologic: Reports wheezing PMFSH Past Medical History Medical History Chronic respiratory failure with hypoxia Compression fracture of T9 vertebra COPD (chronic obstructive pulmonary disease) DVT (deep venous thrombosis) Hiatal hernia History of diverticulitis History of treatment for tuberculosis Interstitial lung disease Left rib fracture Opioid abuse Rash Rib pain on left side Rib pain on right side Surgical History H/O colonoscopy H/O esophagogastroduodenoscopy Social History Social History Household Members: None Housing: House Do you presently have visiting nurse or other home services: No (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) Alcohol intake: unknown Patient Tobacco Use Status: Current everyday Tobacco user Tobacco use type: Cigarette Cigarettes Per Day: 2 Advance Directives: No Advance Directives Information Provided: Yes service: No Current occupational status: retired Physical Exam Vital Signs: Vital Signs: Last Vital Signs Temp 98.5 F 06/10/21 23:21 Pulse 109 H 06/10/21 23:21 Resp 16 06/10/21 23:21 BP 122/74 06/10/21 23:21 Pulse Ox 93 06/10/21 23:21 Oxygen Flow Rate 3 06/10/21 18:25 BMI result Body Mass Index 21.2 Const: General: cooperative, healthy appearing, comfortable, no acute distress, well developed, alert, awake and Physically active Orientation/consciousness: patient oriented x3 HENMT: Head: Yes normal to inspection, Yes No palpable skull fracture present, Yes normocephalic, Yes atraumatic and No abrasion Eyes: General: appearance normal, both eyes and all related structures Neck: Neck: Yes normal visual inspection, Yes full ROM, Yes no lymphadenopathy, Yes no meningeal signs, Yes trachea midline, Yes supple, No anterior neck swelling and No tender Chest: Chest palpation & inspection: normal inspection of the chest and normal palpation of entire chest wall Resp: Effort & Inspection: normal respiratory effort and able to speak in complete sentences Auscultation: clear to auscultation bilaterally and wheezes (Tight) expiratory wheezes GI: Inspection: Yes normal to inspection and No abdominal wall ecchymosis Palpation (GI): Soft to palpation, not firm, nontender, no guarding and not rigid Back/Spine/Pelvis: Other: Extreme kyphosis Skin: General skin exam: no rashes or lesions noted and elasticity normal Neuro: General: patient oriented x3, gait normal, no meningeal signs and CN's II-XI intact bilaterally Cranial nerves: Yes CN's II-XII intact bilaterally Extrem: Other: Lower extremities negative for swelling, pitting edema, or calf tenderness General: Yes normal to inspection and Yes full ROM Psych: Appearance: grossly normal, well kempt and not disheveled Course Course Course Narrative: Recent pneumonia. Will do repeat labs including EKG troponin BNP. Will do chest x-ray. Will give albuterol, steroid, and magnesium. Reevaluation(s) Reevaluation #1: After pain medication O2 saturation 94% 9 L perwhile receiving treatment. Time: 19:08 Reevaluation #2: Oxygen on 4 L which is her baseline and now O2 saturation 91%. Because patient tachycardic so she was was sent for chest CT to rule out PE although very unlikely. Patient already received Levaquin antibiotic for pneumonia on x-ray. Lactate 2.3 COPD exacerbation. Time: 21:32 Reevaluation #3: Case Discussed with Dr. Ibrahim of vascular surgery and he was informed of patient's history physical exam and chest CT reading of left subclavian thrombus artery. Recommended transfer of patient for endovascular intervention. [facility] and [facility] refuse transfer. Spoke With [facility] vascular surgeon Dr. Varghese and he was informed of patient's history, physical exam and CT reading. He states since patient has good pulses in the extremity and is warm patient could be admitted at [facility] with IV heparin. He was aware of patien being on eliquis and he stated patient can still be given heparin. Patient has not taken eliquis since saturday He states if patient's extremity become ischemic and [place] should be called back for transfer. Supervising Attendant Dr. Serrato spoke with Dr. Ibrahim who than agreed patient could be admitted at [facility]. Patient to be admitted for COPD exacerbation and subclavian thrombus. Left upper extremity normal temperature with palpable pulses. Left upper extremity motor/neuro/vascular exam intact Time: 00:17 MDM - Fall MDM Narrative Medical decision making narrative: COPD pneumonia. Thrombus is subclavian artery Lab Data Result diagrams: 06/10/21 20:08 06/10/21 20:08 Labs: Lab Results 06/10/21 06/10/21 06/10/21 Range/Units 19:37 20:04 20:08 WBC 12.4 H (4.8-10.8) X10*3/uL RBC 5.63 H (4.20-5.50) X10*6/uL Hgb 11.6 L (12.0-16.0) g/dl Hct 41.0 (37.0-47.0) % MCV 72.8 L (80.0-98.0) fL MCH 20.6 L (27.0-33.0) pg MCHC 28.3 L (31.0-35.0) g/dl RDW 28.8 H (11.0-16.0) % Plt Count 425 H (160-400) X10*3/uL MPV 10.1 (9.4-12.3) fL Immature Gran % (Auto) 0.6 H (0.0-0.4) % Neut % (Auto) 92.1 H (45-73) % Lymph % (Auto) 3.5 L (20-40) % [place] % (Auto) 3.6 (2-11) % Eos % (Auto) 0.0 (0-4) % Baso % (Auto) 0.2 (0-2) % Lymph # (Auto) 0.4 L (1.2-4.9) X10*3/uL [place] # (Auto) 0.4 (0.1-1.2) X10*3/uL Eos # (Auto) 0.0 (0.0-0.4) X10*3/uL Baso # (Auto) 0.0 (0.0-0.2) X10*3/uL Abs Immat Gran (auto) 0.07 H (0.00-0.03) X10*3/uL Absolute Neuts (auto) 11.4 H (2.0-8.3) x10*3/uL Absolute Nucleated RBC 0.000 (0.0-0.012) X10*3/uL Nucleated RBC % (auto) 0.0 (0.0-0.2) /100WBC Smear Tech's Comments VERIFIED PT (9.9-13.0) SEC INR (0.9-1.1) APTT (24.1-38.0) SEC VBG pH 7.47 H (7.32-7.43) VBG pCO2 28 mmHg VBG pO2 61 mmHg VBG HCO3 21 L (22-26) mmol/L VBG O2 Saturation 88.0 % VBG Base Excess -0.8 mmol/L Sodium (135-145) mmol/L Potassium (3.3-5.1) mmol/L Chloride (96-108) mmol/L Carbon Dioxide (22-29) mmol/L Anion Gap (12-20) BUN (9-16) mg/dL Creatinine (0.5-1.4) mg/dL Estim Creat Clear Calc Estimated GFR Random Glucose (60-115) mg/dL Lactic Acid (0.5-2.0) mmol/L Lactic Acid F/U @ 2Hr (0.5-2.0) mmol/L Calcium (8.4-10.2) mg/dL Total Bilirubin (0.0-1.0) mg/dL AST (5-31) U/L ALT (0-31) U/L Alkaline Phosphatase (39-117) U/L Troponin I High Sens (<3.5-17.0) ng/L B-Natriuretic Peptide (<100) pg/mL Total Protein (6.5-8.0) g/dL Albumin (3.5-5.0) g/dL Influenza Type A (PCR) NEGATIVE (Negative) Influenza Type B (PCR) NEGATIVE (Negative) RSV RNA Qual (PCR) NEGATIVE (Negative) SARS-CoV-2 RNA (RT-PCR) NEGATIVE (Negative) 06/10/21 06/10/21 06/10/21 Range/Units 20:08 20:08 20:08 WBC (4.8-10.8) X10*3/uL RBC (4.20-5.50) X10*6/uL Hgb (12.0-16.0) g/dl Hct (37.0-47.0) % MCV (80.0-98.0) fL MCH (27.0-33.0) pg MCHC (31.0-35.0) g/dl RDW (11.0-16.0) % Plt Count (160-400) X10*3/uL MPV (9.4-12.3) fL Immature Gran % (Auto) (0.0-0.4) % Neut % (Auto) (45-73) % Lymph % (Auto) (20-40) % [place] % (Auto) (2-11) % Eos % (Auto) (0-4) % Baso % (Auto) (0-2) % Lymph # (Auto) (1.2-4.9) X10*3/uL [place] # (Auto) (0.1-1.2) X10*3/uL Eos # (Auto) (0.0-0.4) X10*3/uL Baso # (Auto) (0.0-0.2) X10*3/uL Abs Immat Gran (auto) (0.00-0.03) X10*3/uL Absolute Neuts (auto) (2.0-8.3) x10*3/uL Absolute Nucleated RBC (0.0-0.012) X10*3/uL Nucleated RBC % (auto) (0.0-0.2) /100WBC Smear Tech's Comments PT 13.5 H (9.9-13.0) SEC INR 1.2 H (0.9-1.1) APTT 28.0 (24.1-38.0) SEC VBG pH (7.32-7.43) VBG pCO2 mmHg VBG pO2 mmHg VBG HCO3 (22-26) mmol/L VBG O2 Saturation % VBG Base Excess mmol/L Sodium 141 (135-145) mmol/L Potassium 4.1 (3.3-5.1) mmol/L Chloride 107 (96-108) mmol/L Carbon Dioxide 20 L (22-29) mmol/L Anion Gap 18 (12-20) BUN 11 (9-16) mg/dL Creatinine 0.72 (0.5-1.4) mg/dL Estim Creat Clear Calc 49.2 Estimated GFR > 60 Random Glucose 115 (60-115) mg/dL Lactic Acid (0.5-2.0) mmol/L Lactic Acid F/U @ 2Hr (0.5-2.0) mmol/L Calcium 9.3 (8.4-10.2) mg/dL Total Bilirubin 1.0 (0.0-1.0) mg/dL AST 19 D (5-31) U/L ALT 16 (0-31) U/L Alkaline Phosphatase 131 H (39-117) U/L Troponin I High Sens 7.3 D (<3.5-17.0) ng/L B-Natriuretic Peptide 26 (<100) pg/mL Total Protein 6.3 L (6.5-8.0) g/dL Albumin 3.6 (3.5-5.0) g/dL Influenza Type A (PCR) (Negative) Influenza Type B (PCR) (Negative) RSV RNA Qual (PCR) (Negative) SARS-CoV-2 RNA (RT-PCR) (Negative) 06/10/21 06/11/21 Range/Units 20:08 00:28 WBC (4.8-10.8) X10*3/uL RBC (4.20-5.50) X10*6/uL Hgb (12.0-16.0) g/dl Hct (37.0-47.0) % MCV (80.0-98.0) fL MCH (27.0-33.0) pg MCHC (31.0-35.0) g/dl RDW (11.0-16.0) % Plt Count (160-400) X10*3/uL MPV (9.4-12.3) fL Immature Gran % (Auto) (0.0-0.4) % Neut % (Auto) (45-73) % Lymph % (Auto) (20-40) % [place] % (Auto) (2-11) % Eos % (Auto) (0-4) % Baso % (Auto) (0-2) % Lymph # (Auto) (1.2-4.9) X10*3/uL [place] # (Auto) (0.1-1.2) X10*3/uL Eos # (Auto) (0.0-0.4) X10*3/uL Baso # (Auto) (0.0-0.2) X10*3/uL Abs Immat Gran (auto) (0.00-0.03) X10*3/uL Absolute Neuts (auto) (2.0-8.3) x10*3/uL Absolute Nucleated RBC (0.0-0.012) X10*3/uL Nucleated RBC % (auto) (0.0-0.2) /100WBC Smear Tech's Comments PT (9.9-13.0) SEC INR (0.9-1.1) APTT (24.1-38.0) SEC VBG pH (7.32-7.43) VBG pCO2 mmHg VBG pO2 mmHg VBG HCO3 (22-26) mmol/L VBG O2 Saturation % VBG Base Excess mmol/L Sodium (135-145) mmol/L Potassium (3.3-5.1) mmol/L Chloride (96-108) mmol/L Carbon Dioxide (22-29) mmol/L Anion Gap (12-20) BUN (9-16) mg/dL Creatinine (0.5-1.4) mg/dL Estim Creat Clear Calc Estimated GFR Random Glucose (60-115) mg/dL Lactic Acid 2.3 H* (0.5-2.0) mmol/L Lactic Acid F/U @ 2Hr 2.2 H* (0.5-2.0) mmol/L Calcium (8.4-10.2) mg/dL Total Bilirubin (0.0-1.0) mg/dL AST (5-31) U/L ALT (0-31) U/L Alkaline Phosphatase (39-117) U/L Troponin I High Sens (<3.5-17.0) ng/L B-Natriuretic Peptide (<100) pg/mL Total Protein (6.5-8.0) g/dL Albumin (3.5-5.0) g/dL Influenza Type A (PCR) (Negative) Influenza Type B (PCR) (Negative) RSV RNA Qual (PCR) (Negative) SARS-CoV-2 RNA (RT-PCR) (Negative) ECG Data Interpretation: Sinus tachycardia. Ventricular rate 109. Pred-G 140. Care is 74 per QTC 484. Negative STEMI Discharge Plan Discharge Clinical Impression: COPD exacerbation, Pneumonia, Acute thrombosis of subclavian vein Patient Disposition: Admitted As Inpatient
[2021-06-10] MEDS: methylPREDNISolone Sod Succ 125 MG/2 ML VIAL IVPUSH (18:35)
[2021-06-10] MEDS: Magnesium Sulfate/H2O 2 GM/50 ML PIGGYBACK IV (18:36)
[2021-06-10 18:57] VITALS: RESP 16
[2021-06-10] MEDS: Morphine Sulfate 2 MG/ML CARTRIDGE IVPUSH (18:57)
[2021-06-10 20:15] LABS: Basophils Percent Auto 0.2 % (0-2); Hemoglobin 11.6 g/dl (12.0-16.0); Imm Gran Abs Auto 0.07 X10*3/uL (0.00-0.03); Imm Gran Pct Auto 0.6 % (0.0-0.4); Lymphocytes Absolute Auto 0.4 X10*3/uL (1.2-4.9); Lymphocytes Percent Auto 3.5 % (20-40); MANUAL DIFF FLAG SCAN; Mean Corpuscular HGB Conc 28.3 g/dl (31.0-35.0); Mean Corpuscular Hemoglobin 20.6 pg (27.0-33.0); Mean Corpuscular Volume 72.8 fL (80.0-98.0); Mean Platelet Volume 10.1 fL (9.4-12.3); Monocytes Absolute Auto 0.4 X10*3/uL (0.1-1.2); Monocytes Percent Auto 3.6 % (2-11); Neutrophils Absolute Auto 11.4 x10*3/uL (2.0-8.3); Neutrophils Percent Auto 92.1 % (45-73); Platelet Count 425 X10*3/uL (160-400); Red Blood Count 5.63 X10*6/uL (4.20-5.50); Red Cell Distribution Width 28.8 % (11.0-16.0); SCAN SMEAR FLAG 1; White Blood Count 12.4 X10*3/uL (4.8-10.8)
[2021-06-10 20:19] LABS: Influenza A PCR NEGATIVE (Negative); Influenza B PCR NEGATIVE (Negative); Resp Syncy Virus RNA Qual PCR NEGATIVE (Negative); SARS COV2 PCR INHOUSE NEGATIVE (Negative)
[2021-06-10 20:23] VITALS: RESP 16
[2021-06-10] MEDS: Morphine Sulfate 4 MG/ML CARTRIDGE IVPUSH (20:23)
[2021-06-10] MEDS: levoFLOXacin/D5W 750 MG/150 ML PIGGYBACK 100 MG IV (20:27)
[2021-06-10 20:28] LABS: VBG Base Excess -0.8 mmol/L; VBG HCO3 21 mmol/L (22-26); VBG pCO2 28 mmHg; VBG pH 7.47 (7.32-7.43); VBG pO2 61 mmHg
[2021-06-10 20:34] LABS: Lactic Acid 2.3 mmol/L (0.5-2.0)
[2021-06-10 20:37] LABS: Venous Blood Gas Refer to POC result
[2021-06-10 20:38] LABS: B Type Natriuretic Peptide 26 pg/mL (<100); Troponin-I High Sensitivity 7.3 ng/L (<3.5-17.0)
[2021-06-10 20:42] LABS: Alanine Aminotransferase 16 U/L (0-31); Albumin Level 3.6 g/dL (3.5-5.0); Alkaline Phosphatase 131 U/L (39-117); Anion Gap 18 (12-20); Aspartate Amino Transferase 19 U/L (5-31); Blood Urea Nitrogen 11 mg/dL (9-16); Calcium 9.3 mg/dL (8.4-10.2); Carbon Dioxide 20 mmol/L (22-29); Chloride 107 mmol/L (96-108); Creatinine Clr Calc Pharmacy 49.2; Estimated Glomerular Filt Rate > 60; Glucose Random 115 mg/dL (60-115); Potassium 4.1 mmol/L (3.3-5.1); Sodium 141 mmol/L (135-145); Total Protein 6.3 g/dL (6.5-8.0)
[2021-06-10 20:49] LABS: SLIDE REVIEW VERIFIED
[2021-06-10 21:19] LABS: INTERNATIONAL NORM RATIO 1.2 (0.9-1.1); Prothrombin Time 13.5 SEC (9.9-13.0)
[2021-06-10] MEDS: iohexoL 350 MG/ML 100 ML INFUS..BTL IV (21:22)
[2021-06-10 22:11] LABS: Reflex Lactate? Lactic Acid Added
--- NOTE | 2021-06-10 22:47 | P.HPHOSP_ITS ---
History of Present Illness Date of Service: 06/10/21 Chief Complaint: SOB [facility] Medical History Chronic respiratory failure with hypoxia Compression fracture of T9 vertebra COPD (chronic obstructive pulmonary disease) DVT (deep venous thrombosis) Hiatal hernia History of diverticulitis History of treatment for tuberculosis Interstitial lung disease Left rib fracture Opioid abuse Rash Rib pain on left side Rib pain on right side Pertinent family history: as above Surgical History H/O colonoscopy H/O esophagogastroduodenoscopy Social History Household Members: None Housing: House Do you presently have visiting nurse or other home services: No (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083%) 2.5 Mg/3 Ml Vial.Neb) 2.5 mg INHALE Q2H PRN PRN Reason: Shortness of Breath/Wheezing Albuterol/Ipratropium (Albuterol/Iprat 2.5/0.5mg 3 Ml Ampul.Neb) 3 ml INHALE RQ4H WHILE AWAKE [facility] Vancomycin HCl 1,000 mg/ (Sodium Chloride) 270 mls @ 270 mls/hr IV Q12H [facility] Piperacillin Sod/Tazobactam (Sod 3.375 gm/ Sodium Chloride) 50 mls @ 100 mls/hr IV Q6H [facility] Melatonin (Melatonin 3 Mg Tablet) 6 mg PO BEDTIME PRN PRN Reason: Insomnia Methylprednisolone Sodium Succinate (Methylprednisolone Sod Succ 40 Mg/Ml Vial) 40 mg IVPUSH Q6H [facility] Pharmacy Consult (Consult Rx Vancomycin Dosing) 1 each MISCELLANE DAILY PRN PRN Reason: Consult order Senna (Sennosides 8.6 Mg Tablet) 17.2 mg PO BEDTIME PRN PRN Reason: Constipation Sodium Chloride (0.9 % Sodium Chloride Flush 3 Ml Syringe) 3 ml IVFLUSH QSHIFT [facility] Home Medications Medication Instructions Recorded Confirmed Last Taken Type calcium carbonate 600 mg-vitamin 1 tab PO DAILY 03/31/21 05/18/21 05/17/21 History D3 5 mcg (200 unit) tablet clonazepam 1 mg tablet 1 mg PO BEDTIME PRN 03/31/21 05/18/21 05/17/21 History cyanocobalamin (vitamin B-12) 1,000 mcg PO BEDTIME 03/31/21 05/18/21 05/17/21 History 1,000 mcg tablet docusate sodium 100 mg capsule 100 mg PO BID 03/31/21 05/18/21 05/17/21 History folic acid 1 mg tablet 1 mg PO BID 03/31/21 05/18/21 05/17/21 History gabapentin 100 mg capsule 200 mg PO BEDTIME 03/31/21 05/18/21 05/17/21 History ipratropium 20 mcg-albuterol 100 1 puff INHALATION Q6H PRN 03/31/21 05/18/21 Unknown History mcg/actuation mist for inhalation (Combivent Respimat) methotrexate sodium 2.5 mg tablet 10 mg PO SA 03/31/21 05/18/21 05/13/21 History omeprazole 40 mg capsule,delayed 40 mg PO DAILY 03/31/21 05/18/21 05/17/21 History release oxycodone 5 mg tablet 5 mg PO TID PRN 03/31/21 05/18/21 03/30/21 History umeclidinium 62.5 mcg-vilanterol 1 inh INHALATION DAILY 03/31/21 05/18/21 05/17/21 History 25 mcg/actuation powdr for inhalation (Anoro Ellipta) linaclotide 290 mcg capsule 290 mcg PO BEDTIME 05/18/21 05/18/21 05/17/21 History (Linzess) pregabalin 150 mg capsule 1 cap PO BID 05/18/21 05/18/21 05/17/21 History risedronate 150 mg tablet 1 tab PO QMONTH 05/18/21 05/18/21 05/15/21 History zolpidem 5 mg tablet 1 tab PO BEDTIME PRN 05/18/21 05/18/21 Unknown History Physical Exam Vital Signs and Narrative: Vital Signs: Last Vital Signs Pulse 120 H 06/10/21 18:25 Resp 16 06/10/21 20:23 Pulse Ox 88 L 06/10/21 18:25 Oxygen Flow Rate 3 06/10/21 18:25 BMI result Body Mass Index 21.2 Gen: Appears be in no acute distress. On supplemental oxygen. Speaks in full sentences HEENT: NCAT, Moist mucosa. Pulmonary: Coarse breath sounds, bilateral wheezing present, rales at the bases CVS: Normal S1-S2 Abdomen: BS+, Soft, Nontender Extremities: Warm well perfused Neuro: Alert and awake. Results Labs CBC and Chem 7: 06/10/21 20:08 06/10/21 20:08 Labs: Laboratory Results - last 24 hr 06/10/21 06/10/21 06/10/21 19:37 20:04 20:08 MCV 72.8 L MCH 20.6 L MCHC 28.3 L RDW 28.8 H Plt Count 425 H MPV 10.1 Immature Gran % (Auto) 0.6 H Neut % (Auto) 92.1 H Lymph % (Auto) 3.5 L [place] % (Auto) 3.6 Eos % (Auto) 0.0 Baso % (Auto) 0.2 Lymph # (Auto) 0.4 L [place] # (Auto) 0.4 Eos # (Auto) 0.0 Baso # (Auto) 0.0 Abs Immat Gran (auto) 0.07 H Absolute Neuts (auto) 11.4 H Absolute Nucleated RBC 0.000 Nucleated RBC % (auto) 0.0 Smear Tech's Comments VERIFIED PT INR APTT VBG pH 7.47 H VBG pCO2 28 VBG pO2 61 VBG HCO3 21 L VBG O2 Saturation 88.0 VBG Base Excess -0.8 Anion Gap Estim Creat Clear Calc Estimated GFR Random Glucose Lactic Acid Calcium Total Bilirubin AST ALT Alkaline Phosphatase Troponin I High Sens B-Natriuretic Peptide Total Protein Albumin Influenza Type A (PCR) NEGATIVE Influenza Type B (PCR) NEGATIVE RSV RNA Qual (PCR) NEGATIVE SARS-CoV-2 RNA (RT-PCR) NEGATIVE 06/10/21 06/10/21 06/10/21 20:08 20:08 20:08 MCV MCH MCHC RDW Plt Count MPV Immature Gran % (Auto) Neut % (Auto) Lymph % (Auto) [place] % (Auto) Eos % (Auto) Baso % (Auto) Lymph # (Auto) [place] # (Auto) Eos # (Auto) Baso # (Auto) Abs Immat Gran (auto) Absolute Neuts (auto) Absolute Nucleated RBC Nucleated RBC % (auto) Smear Tech's Comments PT 13.5 H INR 1.2 H APTT 28.0 VBG pH VBG pCO2 VBG pO2 VBG HCO3 VBG O2 Saturation VBG Base Excess Anion Gap 18 Estim Creat Clear Calc 49.2 Estimated GFR > 60 Random Glucose 115 Lactic Acid Calcium 9.3 Total Bilirubin 1.0 AST 19 D ALT 16 Alkaline Phosphatase 131 H Troponin I High Sens 7.3 D B-Natriuretic Peptide 26 Total Protein 6.3 L Albumin 3.6 Influenza Type A (PCR) Influenza Type B (PCR) RSV RNA Qual (PCR) SARS-CoV-2 RNA (RT-PCR) 06/10/21 20:08 MCV MCH MCHC RDW Plt Count MPV Immature Gran % (Auto) Neut % (Auto) Lymph % (Auto) [place] % (Auto) Eos % (Auto) Baso % (Auto) Lymph # (Auto) [place] # (Auto) Eos # (Auto) Baso # (Auto) Abs Immat Gran (auto) Absolute Neuts (auto) Absolute Nucleated RBC Nucleated RBC % (auto) Smear Tech's Comments PT INR APTT VBG pH VBG pCO2 VBG pO2 VBG HCO3 VBG O2 Saturation VBG Base Excess Anion Gap Estim Creat Clear Calc Estimated GFR Random Glucose Lactic Acid 2.3 H* Calcium Total Bilirubin AST ALT Alkaline Phosphatase Troponin I High Sens B-Natriuretic Peptide Total Protein Albumin Influenza Type A (PCR) Influenza Type B (PCR) RSV RNA Qual (PCR) SARS-CoV-2 RNA (RT-PCR) Imaging Radiologist's Impressions: Impressions Chest X-Ray 06/10/21 18:36 IMPRESSION: Some improvement in appearances of groundglass opacities but considerable abnormality still persists, some of which is chronic. Chest CTA 06/10/21 21:30 IMPRESSION: 1. No evidence of pulmonary emboli 2. Interval development of new free-floating thrombus in the left subclavian artery with a single attachment to the wall inferiorly. 3. New right middle lobe and left lower lobe atelectasis/consolidation. 4. Other incidental findings as described above VTE: negative This critical result was discussed with SURENDRA De Leon at 10:15 PM on the day of the exam and it was ascertained that the content and urgency of the report was understood at the time of direct communication. Assessment and Plan (1) COPD exacerbation: Status: Acute (2) Aspiration pneumonia: Status: Acute (3) Subclavian artery thrombosis: Status: Acute Quality Stroke Does the patient have a stroke diagnosis?: No VTE Prior VTE?: No VTE Risk Level:: Medical - moderate - high VTE Device Contraindication: Treatment Not Indicated VTE Drug Contraindication: N/A - Med Ordered
[2021-06-10 23:21] VITALS: BP 122/74; PULSE 109; RESP 16; TEMP 36.9; O2SAT 93
[2021-06-10] MEDS: methylPREDNISolone Sod Succ 40 MG/ML VIAL IVPUSH (23:28)
[2021-06-10] MEDS: Piperacillin Sodium/Tazobactam 3.375 GM in 0.9 % Sodium Chloride 50 ML IV (23:30)
[2021-06-10] MEDS: fentaNYL citrate/PF 100 MCG/2 ML VIAL 25 MCG IVPUSH (23:40)
[2021-06-11] VITALS (11 sets, daily range): BP systolic 95–142; BP diastolic 54–79; PULSE 91–105; RESP 16–24; TEMP 36.1–36.8; O2SAT 89–93
[2021-06-11] MEDS: vancomycin HCL 1,000 MG in 0.9 % Sodium Chloride 250 ML 270 MG IV
[2021-06-11 00:53] LABS: ~Lactic Acid-LAB USE ONLY 2.2 mmol/L (0.5-2.0)
[2021-06-11] MEDS: Morphine Sulfate 2 MG/ML CARTRIDGE 1 MG IVPUSH ×4 (01:34→21:46)
[2021-06-11 02:31] LABS: Reflex Lactate? 2 Y
--- NOTE | 2021-06-11 03:40 | P.HPHOSP_ITS ---
History of Present Illness Date of Service: 06/10/21 Chief Complaint: SOB 76-year-old female with a past medical history of rheumatoid arthritis, tobacco dependence, vertebral compression fracture, chronic back pain, iron deficiency anemia, history of recurrent UTIs, history of diastolic heart failure, COPD, ILD, chronic respiratory failure on 4 L of home oxygen, history of left lower extremity DVT on Eliquis; presented to the hospital with a chief complaint of shortness of breath. Patient reported that over the past 3-4 days she has been having shortness of breath more on exertion; assist with dry cough; denies any fevers. Denies any nausea vomiting abdominal pain, urinary symptoms. Denies any chest pain or palpitations. Patient mentioned that she has been complaint with her home medications inc luding Eliquis-mentions she last took Eliquis on Saturday. Review of all other systems is negative except mentioned above ER course: Per ER team patient on presentation noted to be wheezing; patient has been continued on supplemental oxygen; noted to be saturating in high 80s-low 90s. Not in respiratory distress. Speaks in full sentences. Given nebulizers and steroids; imaging noted to have possible aspiration pneumonia. Given Levaquin. CT chest showed no evidence of pulmonary embolism; but noted to have free- floating subclavian artery thrombus. ER team discussed with Dr. Ibrahim-who suggested transfer to the tertiary center for endovascular evaluation; patient was started on the heparin drip. ER team mentioned that he try to transfer the patient to the [facility], [facility]-unsuccessful, declined/unable to take the transfer. ER team followed by spoke to Dr. Ibrahim-> who suggested admission to the [facility] and to continue heparin drip to be re-evaluated in the morning. ER team also mentioned that [facility] mention that they will consider to take the patient if the patient develops any symptoms-limb ischemia/decreased pulses. Currently patient is asymptomatic. Extremities abdominal perfused. Pulses palpable. 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) Alcohol intake: unknown Patient Tobacco Use Status: Current everyday Tobacco user Tobacco use type: Cigarette Cigarettes Per Day: 2 Advance Directives: No Advance Directives Information Provided: Yes service: No Current occupational status: retired Meds Allergies Allergy/AdvReac Type Severity Reaction Status Date / Time loratadine [From CLARITIN] Allergy Unknown MOUTH SORE Verified 05/18/21 07:14 Active Medications: Current Medications Acetaminophen (Acetaminophen 325 Mg Tablet) 650 mg PO Q6H PRN PRN Reason: Pain, Mild (Pain Scale 1-3) Albuterol Sulfate (Albuterol Sulfate (0.083%) 2.5 Mg/3 Ml Vial.Neb) 2.5 mg INHALE Q2H PRN PRN Reason: Shortness of Breath/Wheezing Albuterol/Ipratropium (Albuterol/Iprat 2.5/0.5mg 3 Ml Ampul.Neb) 3 ml INHALE RQ4H WHILE AWAKE LACEY Apixaban (Apixaban 5 Mg Tablet) 5 mg PO BID LACEY Bisacodyl (Bisacodyl 5 Mg Tablet.Dr) 10 mg PO BEDTIME [facility]ACEY Cyanocobalamin (Cyanocobalamin (Vitamin B-12) 1,000 Mcg Tablet) 1,000 mcg PO BEDTIME LACEY Docusate Sodium (Docusate Sodium 100 Mg Capsule) 100 mg PO BID LACEY Folic Acid (Folic Acid 1 Mg Tablet) 1 mg PO BID LACEY Vancomycin HCl 1,000 mg/ (Sodium Chloride) 270 mls @ 270 mls/hr IV Q24H [facility]ACEY Last Infusion: 06/11/21 01:00 Dose: Infused Documented by: Piperacillin Sod/Tazobactam (Sod 3.375 gm/ Sodium Chloride) 50 mls @ 100 mls/hr IV Q6H LACEY Last Infusion: 06/11/21 00:00 Dose: Infused Documented by: Heparin Sodium/Sodium Chloride () 25,000 unit in 250 mls @ 0 mls/hr IVCONT .Q0M [facility]; Protocol Melatonin (Melatonin 3 Mg Tablet) 6 mg PO BEDTIME PRN PRN Reason: Insomnia Methotrexate (Methotrexate Sodium 2.5 Mg Tablet) 10 mg PO SA [facility] Methylprednisolone Sodium Succinate (Methylprednisolone Sod Succ 40 Mg/Ml Vial) 40 mg IVPUSH Q6H [facility] Last Admin: 06/10/21 23:28 Dose: 40 mg Documented by: Non-Formulary Medication (Calcium Carbonate-Vitamin D3) 1 tab PO DAILY [facility] Non-Formulary Medication (Linaclotide [Linzess]) 290 mcg PO BEDTIME [facility] Non-Formulary Medication (Risedronate) 1 tab PO QMONTH [facility] Non-Formulary Medication (Umeclidinium-Vilanterol [Anoro Ellipta]) 1 inhalation INHALE DAILY [facility] Omeprazole (Omeprazole 40 Mg Capsule.Dr) 40 mg PO DAILY [facility] Pharmacy Consult (Consult Rx Vancomycin Dosing) 1 each MISCELLANE DAILY PRN PRN Reason: Consult order Pregabalin (Pregabalin 150 Mg Capsule) 150 mg PO BID [facility] Senna (Sennosides 8.6 Mg Tablet) 17.2 mg PO BEDTIME PRN PRN Reason: Constipation Sodium Chloride (0.9 % Sodium Chloride Flush 3 Ml Syringe) 3 ml IVFLUSH [facility] Last Admin: 06/11/21 00:00 Dose: Not Given Documented by: Sodium Chloride (0.9 % Sodium Chloride Flush 3 Ml Syringe) 3 ml IVFLUSH [facility] Zolpidem Tartrate (Zolpidem Tartrate 5 Mg Tablet) 5 mg PO BEDTIME PRN PRN Reason: Insomnia Home Medications Medication Instructions Recorded Confirmed Last Taken Type calcium carbonate 600 mg-vitamin 1 tab PO DAILY 03/31/21 06/11/21 05/17/21 History D3 5 mcg (200 unit) tablet cyanocobalamin (vitamin B-12) 1,000 mcg PO BEDTIME 03/31/21 06/11/21 05/17/21 History 1,000 mcg tablet docusate sodium 100 mg capsule 100 mg PO BID 03/31/21 06/11/21 05/17/21 History folic acid 1 mg tablet 1 mg PO BID 03/31/21 06/11/21 05/17/21 History methotrexate sodium 2.5 mg tablet 10 mg PO SA 03/31/21 06/11/21 05/13/21 History omeprazole 40 mg capsule,delayed 40 mg PO DAILY 03/31/21 06/11/21 05/17/21 History release oxycodone 5 mg tablet 5 mg PO TID PRN 03/31/21 06/11/21 03/30/21 History umeclidinium 62.5 mcg-vilanterol 1 inh INHALATION DAILY 03/31/21 06/11/21 1 07/18/20 History 25 mcg/actuation powdr for inhalation (Anoro Ellipta) linaclotide 290 mcg capsule 290 mcg PO BEDTIME 05/18/21 06/11/21 05/17/21 History (Linzess) pregabalin 150 mg capsule 1 cap PO BID 05/18/21 06/11/21 05/17/21 History risedronate 150 mg tablet 1 tab PO QMONTH 05/18/21 06/11/21 05/15/21 History zolpidem 5 mg tablet 1 tab PO BEDTIME PRN 05/18/21 06/11/21 Unknown History prednisone 20 mg tablet 10 mg PO DAILY 06/11/21 06/11/21 Unknown History Physical Exam Vital Signs and Narrative: Vital Signs: Last Vital Signs Temp 98.5 F 06/10/21 23:21 Pulse 94 06/11/21 03:23 Resp 16 06/11/21 03:23 BP 104/54 L 06/11/21 03:23 Pulse Ox 93 06/11/21 03:23 Oxygen Flow Rate 3 06/10/21 18:25 BMI result Body Mass Index 21.2 Gen: Appears be in no acute distress . Speaks in full sentences. On supplemental oxygen. HEENT: NCAT, Moist mucosa. Pulmonary: Bilateral expiratory wheezing CVS: Normal S1-S2 Abdomen: BS+, Soft, Nontender Extremities: Warm well perfused Neuro: Alert and awake. Moves all extremities equally. Results Labs CBC and Chem 7: 06/10/21 20:08 06/10/21 20:08 Labs: Laboratory Results - last 24 hr 06/10/21 06/10/21 06/10/21 19:37 20:04 20:08 MCV 72.8 L MCH 20.6 L MCHC 28.3 L RDW 28.8 H Plt Count 425 H MPV 10.1 Immature Gran % (Auto) 0.6 H Neut % (Auto) 92.1 H Lymph % (Auto) 3.5 L Hand % (Auto) 3.6 Eos % (Auto) 0.0 Baso % (Auto) 0.2 Lymph # (Auto) 0.4 L Hand # (Auto) 0.4 Eos # (Auto) 0.0 Baso # (Auto) 0.0 Abs Immat Gran (auto) 0.07 H Absolute Neuts (auto) 11.4 H Absolute Nucleated RBC 0.000 Nucleated RBC % (auto) 0.0 Smear Tech's Comments VERIFIED PT INR APTT VBG pH 7.47 H VBG pCO2 28 VBG pO2 61 VBG HCO3 21 L VBG O2 Saturation 88.0 VBG Base Excess -0.8 Anion Gap Estim Creat Clear Calc Estimated GFR Random Glucose Lactic Acid Lactic Acid F/U @ 2Hr Calcium Total Bilirubin AST ALT Alkaline Phosphatase Troponin I High Sens B-Natriuretic Peptide Total Protein Albumin Influenza Type A (PCR) NEGATIVE Influenza Type B (PCR) NEGATIVE RSV RNA Qual (PCR) NEGATIVE SARS-CoV-2 RNA (RT-PCR) NEGATIVE 06/10/21 06/10/21 06/10/21 20:08 20:08 20:08 MCV MCH MCHC RDW Plt Count MPV Immature Gran % (Auto) Neut % (Auto) Lymph % (Auto) Hand % (Auto) Eos % (Auto) Baso % (Auto) Lymph # (Auto) Hand # (Auto) Eos # (Auto) Baso # (Auto) Abs Immat Gran (auto) Absolute Neuts (auto) Absolute Nucleated RBC Nucleated RBC % (auto) Smear Tech's Comments PT 13.5 H INR 1.2 H APTT 28.0 VBG pH VBG pCO2 VBG pO2 VBG HCO3 VBG O2 Saturation VBG Base Excess Anion Gap 18 Estim Creat Clear Calc 49.2 Estimated GFR > 60 Random Glucose 115 Lactic Acid Lactic Acid F/U @ 2Hr Calcium 9.3 Total Bilirubin 1.0 AST 19 D ALT 16 Alkaline Phosphatase 131 H Troponin I High Sens 7.3 D B-Natriuretic Peptide 26 Total Protein 6.3 L Albumin 3.6 Influenza Type A (PCR) Influenza Type B (PCR) RSV RNA Qual (PCR) SARS-CoV-2 RNA (RT-PCR) 06/10/21 06/11/21 20:08 00:28 MCV MCH MCHC RDW Plt Count MPV Immature Gran % (Auto) Neut % (Auto) Lymph % (Auto) Hand % (Auto) Eos % (Auto) Baso % (Auto) Lymph # (Auto) Hand # (Auto) Eos # (Auto) Baso # (Auto) Abs Immat Gran (auto) Absolute Neuts (auto) Absolute Nucleated RBC Nucleated RBC % (auto) Smear Tech's Comments PT INR APTT VBG pH VBG pCO2 VBG pO2 VBG HCO3 VBG O2 Saturation VBG Base Excess Anion Gap Estim Creat Clear Calc Estimated GFR Random Glucose Lactic Acid 2.3 H* Lactic Acid F/U @ 2Hr 2.2 H* Calcium Total Bilirubin AST ALT Alkaline Phosphatase Troponin I High Sens B-Natriuretic Peptide Total Protein Albumin Influenza Type A (PCR) Influenza Type B (PCR) RSV RNA Qual (PCR) SARS-CoV-2 RNA (RT-PCR) Imaging Radiologist's Impressions: Impressions Chest X-Ray 06/10/21 18:36 IMPRESSION: Some improvement in appearances of groundglass opacities but considerable abnormality still persists, some of which is chronic. Chest CTA 06/10/21 21:30 IMPRESSION: 1. No evidence of pulmonary emboli 2. Interval development of new free-floating thrombus in the left subclavian artery with a single attachment to the wall inferiorly. 3. New right middle lobe and left lower lobe atelectasis/consolidation. 4. Other incidental findings as described above VTE: negative This critical result was discussed with SURENDRA De Leon at 10:15 PM on the day of the exam and it was ascertained that the content and urgency of the report was understood at the time of direct communication. Assessment and Plan (1) Subclavian artery thrombosis: Status: Acute (2) COPD exacerbation: Status: Acute (3) Aspiration pneumonia: Status: Acute 76-year-old female with a past medical history of rheumatoid arthritis, tobacco dependence, vertebral compression fracture, chronic back pain, iron deficiency anemia, history of recurrent UTIs, history of diastolic heart failure, COPD, ILD, chronic respiratory failure on 4 L of home oxygen, history of left lower extremity DVT on Eliquis; presented to the hospital with a chief complaint of shortness of breath. Acute hypoxic respiratory failure: In the setting of COPD exacerbation /aspiration pneumonia. Patient on supplemental oxygen at 4-6 L. Not in respiratory distress currently. Aspiration pneumonia: CT chest showed New right middle lobe and left lower lobe atelectasis/consolidation. Continue IV vanc and Zosyn. COPD exacerbation: Continue nebulizations standing and p.r.n.. Solu-Medrol. Hold home prednisone. Left Subclavian artery thrombus: Currently left upper extremities warm well- perfused, pulses palpable CT chest showed Interval development of new free-floating thrombus in the left subclavian artery with a single attachment to the wall inferiorly. Patient continued on heparin drip. Dr. Ibrahim aware of the patient Will also consult Hematology for further inputs History of rheumatoid arthritis: Continue home medications. History of chronic back pain/vertebral compression fractures: Pain control. History of DVT: Patient currently on heparin drip. Home Eliquis held. History of dysphagia: Patient was on pureed diet. Will consult speech and swallow. Code status: Full code Quality Stroke Does the patient have a stroke diagnosis?: No VTE Prior VTE?: Yes VTE Risk Level:: Medical - moderate - high VTE Device Contraindication: Treatment Not Indicated VTE Drug Contraindication: N/A - Med Ordered
[2021-06-11] MEDS: Zolpidem Tartrate 5 MG TABLET PO (04:16)
[2021-06-11] MEDS: Heparin Sodium,Porcine/1/2NS 25,000 UNIT/250 ML IV.SOLN 6.92 UNIT IVCONT (04:17)
[2021-06-11 04:31] LABS: ~Lactic Acid-LAB USE ONLY 3.1 mmol/L (0.5-2.0)
[2021-06-11 04:35] LABS: Hemoglobin 10.8 g/dl (12.0-16.0); Mean Platelet Volume 10.2 fL (9.4-12.3); Neutrophils Percent Auto 93.3 % (45-73); PLT ABN DIST 1; SCAN SMEAR FLAG 1
[2021-06-11 04:37] LABS: Basophils Percent Auto 0.1 % (0-2); Hematocrit 38.9 % (37.0-47.0); Imm Gran Abs Auto 0.03 X10*3/uL (0.00-0.03); Imm Gran Pct Auto 0.4 % (0.0-0.4); Lymphocytes Absolute Auto 0.3 X10*3/uL (1.2-4.9); Lymphocytes Percent Auto 4.6 % (20-40); MANUAL DIFF FLAG SCAN; Mean Corpuscular HGB Conc 27.8 g/dl (31.0-35.0); Mean Corpuscular Hemoglobin 20.3 pg (27.0-33.0); Mean Corpuscular Volume 73.3 fL (80.0-98.0); Monocytes Absolute Auto 0.1 X10*3/uL (0.1-1.2); Monocytes Percent Auto 1.6 % (2-11); Neutrophils Absolute Auto 6.2 x10*3/uL (2.0-8.3); Platelet Count 380 X10*3/uL (160-400); Red Blood Count 5.31 X10*6/uL (4.20-5.50); Red Cell Distribution Width 28.3 % (11.0-16.0); White Blood Count 6.7 X10*3/uL (4.8-10.8)
[2021-06-11 04:53] LABS: Anion Gap 14 (12-20); Blood Urea Nitrogen 11 mg/dL (9-16); Calcium 8.8 mg/dL (8.4-10.2); Carbon Dioxide 22 mmol/L (22-29); Chloride 105 mmol/L (96-108); Creatinine Clr Calc Pharmacy 47.9; Estimated Glomerular Filt Rate > 60; Glucose Random 202 mg/dL (60-115); Potassium 4.4 mmol/L (3.3-5.1); Sodium 137 mmol/L (135-145)
[2021-06-11] MEDS: methylPREDNISolone Sod Succ 40 MG/ML VIAL IVPUSH ×3 (05:56→21:46)
[2021-06-11] MEDS: Piperacillin Sodium/Tazobactam 3.375 GM in 0.9 % Sodium Chloride 50 ML IV ×4 (05:59→23:57)
[2021-06-11] MEDS: Albuterol/Iprat 2.5/0.5MG 3 ML AMPUL.NEB INHALE ×4 (08:57→20:16)
--- NOTE | 2021-06-11 09:12 | PHA.MEDREC ---
Addendum entered by Naa Pike [facility] 06/11/21 09:58: Patient takes her risendrontate on the 30 of each month. Hailee Larson will be bringing in her linzess, risendronate and anoro ellipta. Original Note: Pharmacy Consult ? Medication Reconciliation Pharmacy has completed the medication reconciliation. Spoke with patient in ED who had a list of medications with her. She is unsure when she last took her medication
[2021-06-11] MEDS: Omeprazole 40 MG CAPSULE.DR PO (10:27)
[2021-06-11] MEDS: Docusate Sodium 100 MG CAPSULE PO ×2 (10:28→19:50)
[2021-06-11] MEDS: Folic Acid 1 MG TABLET PO ×2 (10:28→19:50)
[2021-06-11] MEDS: Pregabalin 150 MG CAPSULE PO ×2 (10:28→19:50)
[2021-06-11] MEDS: Calcium + Vitamin D 250 MG TABLET 500 MG PO (10:28)
--- NOTE | 2021-06-11 12:10 | P.CNHO_ITS ---
Subjective - Subjective Chief complaint: arterial thrombosis Patient: new to practice Consult date: 06/11/21 Primary Care Provider: Carlos Alberto Rodriges HPI - Consult Narrative Reason for consult: arterial thrombosis Narrative: Elmira Bingham is a 76 year old female patient of Dr. Rodriges who presents with dyspnea. She is on apixaban for multiple DVT's. A CT-angiogram of the chest showed no pulmonary emboli bud did reveal a stenosis in the left subclavian artery with a new free-floating thrombus. Her apixaban was stopped and she is appropriately on infusional heparin. Review of Systems - Constitutional Reports weakness - Cardiovascular Reports fast heart rate, Reports shortness of breath - Respiratory Reports dyspnea on exertion - Gastrointestinal Reports other - Genitourinary Reports absent period - Musculoskeletal Reports joint pain - Integumentary/Breasts Skin/Breast: Reports other - Neurologic Reports system reviewed and no additional complaints, except as documented PMFSH Medical History: Medical History (Last Reviewed 06/01/21 @ 13:16 by Ankita Munoz NP) Bipolar disorder Chronic idiopathic constipation Chronic respiratory failure with hypoxia Compression fracture of T9 vertebra COPD (chronic obstructive pulmonary disease) DVT (deep venous thrombosis) DVT (deep venous thrombosis) Hiatal hernia Hiatal hernia History of diverticulitis History of treatment for tuberculosis Interstitial lung disease Iron deficiency anemia Left rib fracture Opioid abuse Peripheral neuropathy Rash Rheumatoid arthritis Rib pain on left side Rib pain on right side Surgical History: Surgical History (Last Reviewed 06/01/21 @ 13:16 by Ankita Munoz NP) H/O colonoscopy H/O esophagogastroduodenoscopy Social History: Social History (Last Reviewed 06/01/21 @ 13:16 by Ankita Munoz NP) Living Situation History: Household Members: None Housing: House Do you presently have visiting nurse or other home services: No Do you presently have visiting nurse or other home services comment: 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 Alcohol History: Alcohol intake: unknown Alcohol History Quit Date: Year quit: 1989 Alcohol History Details: Alcohol intake frequency: does not drink Tobacco History: Patient Tobacco Use Status: Current everyday Tobacco Tobacco use type: Cigarette Cigarettes Per Day: 2 Advance Directives: Advance Directives: No Advance Directives Information Provided: Yes Occupation Assessmet: service: No Current occupational status: retired Home Medications and Allergies Current Medications: Current Medications Acetaminophen (Acetaminophen 325 Mg Tablet) 650 mg PO Q6H PRN PRN Reason: Pain, Mild (Pain Scale 1-3) Albuterol Sulfate (Albuterol Sulfate (0.083%) 2.5 Mg/3 Ml Vial.Neb) 2.5 mg INHALE Q2H PRN PRN Reason: Shortness of Breath/Wheezing Albuterol/Ipratropium (Albuterol/Iprat 2.5/0.5mg 3 Ml Ampul.Neb) 3 ml INHALE RQ4H WHILE AWAKE [facility] Last Admin: 06/11/21 08:57 Dose: 3 ml Documented by: Bisacodyl (Bisacodyl 5 Mg Tablet.Dr) 10 mg PO BEDTIME [facility] Calcium Carbonate/Cholecalciferol (Calcium + Vitamin D 250 Mg Tablet) 500 mg PO DAILY [facility] Last Admin: 06/11/21 10:28 Dose: 500 mg Documented by: Cyanocobalamin (Cyanocobalamin (Vitamin B-12) 1,000 Mcg Tablet) 1,000 mcg PO BEDTIME [facility] Docusate Sodium (Docusate Sodium 100 Mg Capsule) 100 mg PO BID [facility] Last Admin: 06/11/21 10:28 Dose: 100 mg Documented by: Folic Acid (Folic Acid 1 Mg Tablet) 1 mg PO BID [facility] Last Admin: 06/11/21 10:28 Dose: 1 mg Documented by: Vancomycin HCl 1,000 mg/ (Sodium Chloride) 270 mls @ 270 mls/hr IV Q24H [facility] Last Infusion: 06/11/21 01:00 Dose: Infused Documented by: Piperacillin Sod/Tazobactam (Sod 3.375 gm/ Sodium Chloride) 50 mls @ 100 mls/hr IV Q6H [facility] Last Admin: 06/11/21 10:28 Dose: 100 mls/hr Documented by: Heparin Sodium/Sodium Chloride () 25,000 unit in 250 mls @ 0 mls/hr IVCONT .Q0M [facility]; Protocol Last Admin: 06/11/21 04:17 Dose: 14 units/kg/hr, 6.92 mls/hr Documented by: Melatonin (Melatonin 3 Mg Tablet) 6 mg PO BEDTIME PRN PRN Reason: Insomnia Methotrexate (Methotrexate Sodium 2.5 Mg Tablet) 10 mg PO SA [facility] Methylprednisolone Sodium Succinate (Methylprednisolone Sod Succ 40 Mg/Ml Vial) 40 mg IVPUSH Q8H [facility] Last Admin: 06/11/21 05:56 Dose: 40 mg Documented by: Morphine Sulfate (Morphine Sulfate 2 Mg/Ml Cartridge) 1 mg IVPUSH Q4H PRN; Protocol PRN Reason: pain/SOB Last Admin: 06/11/21 04:16 Dose: 1 mg Documented by: Non-Formulary Medication (Linaclotide [Linzess]) 290 mcg PO BEDTIME [facility] Non-Formulary Medication (Risedronate) 1 tab PO Q30D [facility] Non-Formulary Medication (Umeclidinium-Vilanterol [Anoro Ellipta]) 1 inhalation INHALE DAILY [facility] Omeprazole (Omeprazole 40 Mg Capsule.Dr) 40 mg PO DAILY [facility] Last Admin: 06/11/21 10:27 Dose: 40 mg Documented by: Pharmacy Consult (Consult Rx Vancomycin Dosing) 1 each MISCELLANE DAILY PRN PRN Reason: Consult order Pregabalin (Pregabalin 150 Mg Capsule) 150 mg PO BID [facility] Last Admin: 06/11/21 10:28 Dose: 150 mg Documented by: Senna (Sennosides 8.6 Mg Tablet) 17.2 mg PO BEDTIME PRN PRN Reason: Constipation Sodium Chloride (0.9 % Sodium Chloride Flush 3 Ml Syringe) 3 ml IVFLUSH [facility] Last Admin: 06/11/21 10:51 Dose: Not Given Documented by: Sodium Chloride (0.9 % Sodium Chloride Flush 3 Ml Syringe) 3 ml IVFLUSH [facility] Last Admin: 06/11/21 10:51 Dose: Not Given Documented by: Zolpidem Tartrate (Zolpidem Tartrate 5 Mg Tablet) 5 mg PO BEDTIME PRN PRN Reason: Insomnia Last Admin: 06/11/21 04:16 Dose: 5 mg Documented by: Home Medications Medication Instructions Recorded Confirmed Type cyanocobalamin (vitamin B-12) 1,000 mcg PO BEDTIME 03/31/21 06/11/21 History 1,000 mcg tablet docusate sodium 100 mg capsule 100 mg PO BID 03/31/21 06/11/21 History folic acid 1 mg tablet 1 mg PO BID 03/31/21 06/11/21 History methotrexate sodium 2.5 mg tablet 10 mg PO SA@0900 03/31/21 06/11/21 History omeprazole 40 mg capsule,delayed 40 mg PO DAILY@0630 03/31/21 06/11/21 History release oxycodone 5 mg tablet 5 mg PO TID PRN 03/31/21 06/11/21 History umeclidinium 62.5 mcg-vilanterol 1 inh INHALATION DAILY 03/31/21 06/11/21 History 25 mcg/actuation powdr for inhalation (Anoro Ellipta) linaclotide 290 mcg capsule 290 mcg PO BEDTIME 05/18/21 06/11/21 History (Linzess) pregabalin 150 mg capsule 1 cap PO TID 05/18/21 06/11/21 History risedronate 150 mg tablet 1 tab PO QMONTH 05/18/21 06/11/21 History zolpidem 5 mg tablet 1 tab PO BEDTIME PRN 05/18/21 06/11/21 History lorazepam 1 mg tablet 1 tab PO DAILY PRN 06/11/21 06/11/21 History prednisone 20 mg tablet 10 mg PO DAILY 06/11/21 06/11/21 History Allergies Allergy/AdvReac Type Severity Reaction Status Date / Time loratadine [From CLARITIN] Allergy Unknown MOUTH SORE Verified 05/18/21 07:14 Physical Exam Vital signs: Vital Signs Temp 98.5 F 06/10/21 23:21 Pulse 97 06/11/21 09:01 Resp 24 H 06/11/21 09:01 BP 104/54 L 06/11/21 03:23 Pulse Ox 93 06/11/21 03:23 Intake & Output 06/10/21 06/11/21 06/11/21 18:59 06:59 18:59 Intake Total 570 / 570 Balance 570 / 570 Intake: Intake, IV Amount 570 / 570 Magnesium Sulfate/H2O 2 gm In 50 / 50 50 ml @ 25 mls/hr IV ONCE ONE Rx#:[id number] Piperacillin Sodium/Tazobactam 100 / 100 3.375 gm In 0.9 % Sodium Chloride 50 ml @ 100 mls/hr IV Q6H [facility] Rx#:[id number] levoFLOXacin/D5W 750 mg In 150 150 / 150 ml @ 100 mls/hr IV ONCE ONE Rx# :[id number] vancomycin HCL 1,000 mg In 0.9 270 / 270 % Sodium Chloride 250 ml @ 270 mls/hr IV Q24H [facility] Rx#: [id number] Other: Weight 49.442 kg Weight 49.442 kg - Constitutional Present: no acute distress - Routine HEENT Exam Head: Present: atraumatic - Routine Neck Exam Present: supple, full ROM - Routine Respiratory Exam Present: prolonged expiratory phase, wheezes - Routine Cardiovascular Exam Cardiovascular: Present: RRR - Routine Abdominal Exam Present: diminished bowel sounds - Routine Extremities Exam Present: joint swelling Hem/Onc Consult Result - Labs CBC & Chem 7: 06/11/21 04:02 06/11/21 04:02 Labs: Short CBC 06/10/21 06/11/21 Range/Units 20:08 04:02 WBC 12.4 H 6.7 (4.8-10.8) X10*3/uL Hgb 11.6 L 10.8 L (12.0-16.0) g/dl Hct 41.0 38.9 (37.0-47.0) % Plt Count 425 H 380 (160-400) X10*3/uL BMP 06/10/21 06/11/21 20:08 04:02 Sodium 141 137 Potassium 4.1 4.4 Chloride 107 105 Carbon Dioxide 20 L 22 BUN 11 11 Creatinine 0.72 0.74 Calcium 9.3 8.8 Liver Function 06/10/21 Range/Units 20:08 Total Bilirubin 1.0 (0.0-1.0) mg/dL AST 19 D (5-31) U/L ALT 16 (0-31) U/L Alkaline Phosphatase 131 H (39-117) U/L Albumin 3.6 (3.5-5.0) g/dL Assessment and Plan Patient Active problem list reviewed?: Yes (1) Subclavian artery thrombosis Status: Acute Assessment and plan: I agree with heparin infusion. I would recommend an antiplatelet drug such as aspirin or clopidogrel but would check with Dr. Ibrahim before ordering. Recommend hematology consultation tomorrow. - Time Spent With Patient Time Spent with Patient (in minutes): 20
[2021-06-11 13:29] LABS: PTT Heparin Drip 43.7 SEC (53-77.9)
--- NOTE | 2021-06-11 14:21 | P.PNIM_ITS ---
Subjective Subjective Date of Service: 06/12/21 Interval History: f/u on subclavian clot, no new issues, no sob. On heparin drip Review of Systems no fever no sob Physical Exam Vital Signs: Vital Signs: Last Vital Signs Temp 98.5 F 06/10/21 23:21 Pulse 92 06/11/21 13:21 Resp 16 06/11/21 13:21 BP 104/54 L 06/11/21 03:23 Pulse Ox 93 06/11/21 03:23 Oxygen Flow Rate 3 06/10/21 18:25 BMI result Body Mass Index 21.2 Const: Other: General: AO X 3, no acute distress Resp: CTA bilateral CVS: S1,S2,RRR GI: +BS, NT, no distention Skin: No rash Neuro: motor grossly intact Psych: appropriate affect Objective Data Active Medications Acetaminophen (Acetaminophen 325 Mg Tablet) 650 mg PO Q6H PRN PRN Reason: Pain, Mild (Pain Scale 1-3) Albuterol Sulfate (Albuterol Sulfate (0.083%) 2.5 Mg/3 Ml Vial.Neb) 2.5 mg INHALE Q2H PRN PRN Reason: Shortness of Breath/Wheezing Albuterol/Ipratropium (Albuterol/Iprat 2.5/0.5mg 3 Ml Ampul.Neb) 3 ml INHALE RQ4H WHILE AWAKE [facility] Last Admin: 06/11/21 13:18 Dose: 3 ml Documented by: ALEXANDER Bisacodyl (Bisacodyl 5 Mg Tablet.Dr) 10 mg PO BEDTIME [facility] Calcium Carbonate/Cholecalciferol (Calcium + Vitamin D 250 Mg Tablet) 500 mg PO DAILY [facility] Last Admin: 06/11/21 10:28 Dose: 500 mg Documented by: JADEN Cyanocobalamin (Cyanocobalamin (Vitamin B-12) 1,000 Mcg Tablet) 1,000 mcg PO BEDTIME [facility] Docusate Sodium (Docusate Sodium 100 Mg Capsule) 100 mg PO BID [facility] Last Admin: 06/11/21 10:28 Dose: 100 mg Documented by: JADEN Folic Acid (Folic Acid 1 Mg Tablet) 1 mg PO BID [facility] Last Admin: 06/11/21 10:28 Dose: 1 mg Documented by: JADEN Vancomycin HCl 1,000 mg/ (Sodium Chloride) 270 mls @ 270 mls/hr IV Q24H [facility] Last Infusion: 06/11/21 01:00 Dose: 0 mls/hr Documented by: LILI Piperacillin Sod/Tazobactam (Sod 3.375 gm/ Sodium Chloride) 50 mls @ 100 mls/hr IV Q6H [facility] Last Admin: 06/11/21 10:28 Dose: 100 mls/hr Documented by: JADEN Heparin Sodium/Sodium Chloride () 25,000 unit in 250 mls @ 0 mls/hr IVCONT .Q0M [facility]; Protocol Last Admin: 06/11/21 04:17 Dose: 14 units/kg/hr, 6.92 mls/hr Documented by: LILI Cosigned by: GEO Melatonin (Melatonin 3 Mg Tablet) 6 mg PO BEDTIME PRN PRN Reason: Insomnia Methotrexate (Methotrexate Sodium 2.5 Mg Tablet) 10 mg PO SA [facility] Methylprednisolone Sodium Succinate (Methylprednisolone Sod Succ 40 Mg/Ml Vial) 40 mg IVPUSH Q8H [facility] Last Admin: 06/11/21 05:56 Dose: 40 mg Documented by: LILI Morphine Sulfate (Morphine Sulfate 2 Mg/Ml Cartridge) 1 mg IVPUSH Q4H PRN; P rotocol PRN Reason: pain/SOB Last Admin: 06/11/21 04:16 Dose: 1 mg Documented by: LILI Non-Formulary Medication (Linaclotide [Linzess]) 290 mcg PO BEDTIME [facility] Non-Formulary Medication (Risedronate) 1 tab PO Q30D [facility] Non-Formulary Medication (Umeclidinium-Vilanterol [Anoro Ellipta]) 1 inhalation INHALE DAILY [facility] Omeprazole (Omeprazole 40 Mg Capsule.) 40 mg PO DAILY [facility] Last Admin: 06/11/21 10:27 Dose: 40 mg Documented by: JADEN Pharmacy Consult (Consult Rx Vancomycin Dosing) 1 each MISCELLANE DAILY PRN PRN Reason: Consult order Pregabalin (Pregabalin 150 Mg Capsule) 150 mg PO BID [facility] Last Admin: 06/11/21 10:28 Dose: 150 mg Documented by: JADEN Senna (Sennosides 8.6 Mg Tablet) 17.2 mg PO BEDTIME PRN PRN Reason: Constipation Sodium Chloride (0.9 % Sodium Chloride Flush 3 Ml Syringe) 3 ml IVFLUSH [facility] Last Admin: 06/11/21 10:51 Dose: Not Given Documented by: JADEN Non-Admin Reason: IV Running Sodium Chloride (0.9 % Sodium Chloride Flush 3 Ml Syringe) 3 ml IVFLUSH [facility] Last Admin: 06/11/21 10:51 Dose: Not Given Documented by: JADEN Non-Admin Reason: IV Running Zolpidem Tartrate (Zolpidem Tartrate 5 Mg Tablet) 5 mg PO BEDTIME PRN PRN Reason: Insomnia Last Admin: 06/11/21 04:16 Dose: 5 mg Documented by: LILI Labs CBC & Chem 7: 06/11/21 04:02 06/12/21 09:33 Labs: Laboratory Results - last 24 hr 06/10/21 06/10/21 06/10/21 19:37 20:04 20:08 MCV 72.8 L MCH 20.6 L MCHC 28.3 L RDW 28.8 H Plt Count 425 H MPV 10.1 Immature Gran % (Auto) 0.6 H Neut % (Auto) 92.1 H Lymph % (Auto) 3.5 L [place] % (Auto) 3.6 Eos % (Auto) 0.0 Baso % (Auto) 0.2 Lymph # (Auto) 0.4 L [place] # (Auto) 0.4 Eos # (Auto) 0.0 Baso # (Auto) 0.0 Abs Immat Gran (auto) 0.07 H Absolute Neuts (auto) 11.4 H Absolute Nucleated RBC 0.000 Nucleated RBC % (auto) 0.0 Smear Tech's Comments VERIFIED PT INR APTT PTT (Heparin Protocol) VBG pH 7.47 H VBG pCO2 28 VBG pO2 61 VBG HCO3 21 L VBG O2 Saturation 88.0 VBG Base Excess -0.8 Anion Gap Estim Creat Clear Calc Estimated GFR Random Glucose Lactic Acid Lactic Acid F/U @ 2Hr Lactic Acid F/U @ 4Hr Calcium Total Bilirubin AST ALT Alkaline Phosphatase Troponin I High Sens B-Natriuretic Peptide Total Protein Albumin Influenza Type A (PCR) NEGATIVE Influenza Type B (PCR) NEGATIVE RSV RNA Qual (PCR) NEGATIVE SARS-CoV-2 RNA (RT-PCR) NEGATIVE 06/10/21 06/10/2121 20:08 20:08 20:08 MCV MCH MCHC RDW Plt Count MPV Immature Gran % (Auto) Neut % (Auto) Lymph % (Auto) [place] % (Auto) Eos % (Auto) Baso % (Auto) Lymph # (Auto) [place] # (Auto) Eos # (Auto) Baso # (Auto) Abs Immat Gran (auto) Absolute Neuts (auto) Absolute Nucleated RBC Nucleated RBC % (auto) Smear Tech's Comments PT 13.5 H INR 1.2 H APTT 28.0 PTT (Heparin Protocol) VBG pH VBG pCO2 VBG pO2 VBG HCO3 VBG O2 Saturation VBG Base Excess Anion Gap 18 Estim Creat Clear Calc 49.2 Estimated GFR > 60 Random Glucose 115 Lactic Acid Lactic Acid F/U @ 2Hr Lactic Acid F/U @ 4Hr Calcium 9.3 Total Bilirubin 1.0 AST 19 D ALT 16 Alkaline Phosphatase 131 H Troponin I High Sens 7.3 D B-Natriuretic Peptide 26 Total Protein 6.3 L Albumin 3.6 Influenza Type A (PCR) Influenza Type B (PCR) RSV RNA Qual (PCR) SARS-CoV-2 RNA (RT-PCR) 06/10/21 06/11/21 06/11/21 20:08 00:28 04:02 MCV 73.3 L MCH 20.3 L MCHC 27.8 L RDW 28.3 H Plt Count 380 MPV 10.2 Immature Gran % (Auto) 0.4 Neut % (Auto) 93.3 H Lymph % (Auto) 4.6 L [place] % (Auto) 1.6 L Eos % (Auto) 0.0 Baso % (Auto) 0.1 Lymph # (Auto) 0.3 L [place] # (Auto) 0.1 Eos # (Auto) 0.0 Baso # (Auto) 0.0 Abs Immat Gran (auto) 0.03 Absolute Neuts (auto) 6.2 Absolute Nucleated RBC 0.000 Nucleated RBC % (auto) 0.0 Smear Tech's Comments PT INR APTT PTT (Heparin Protocol) VBG pH VBG pCO2 VBG pO2 VBG HCO3 VBG O2 Saturation VBG Base Excess Anion Gap Estim Creat Clear Calc Estimated GFR Random Glucose Lactic Acid 2.3 H* Lactic Acid F/U @ 2Hr 2.2 H* Lactic Acid F/U @ 4Hr Calcium Total Bilirubin AST ALT Alkaline Phosphatase Troponin I High Sens B-Natriuretic Peptide Total Protein Albumin Influenza Type A (PCR) Influenza Type B (PCR) RSV RNA Qual (PCR) SARS-CoV-2 RNA (RT-PCR) 06/11/21 06/11/21 06/11/21 04:02 04:02 13:12 MCV MCH MCHC RDW Plt Count MPV Immature Gran % (Auto) Neut % (Auto) Lymph % (Auto) [place] % (Auto) Eos % (Auto) Baso % (Auto) Lymph # (Auto) [place] # (Auto) Eos # (Auto) Baso # (Auto) Abs Immat Gran (auto) Absolute Neuts (auto) Absolute Nucleated RBC Nucleated RBC % (auto) Smear Tech's Comments PT INR APTT PTT (Heparin Protocol) 43.7 L VBG pH VBG pCO2 VBG pO2 VBG HCO3 VBG O2 Saturation VBG Base Excess Anion Gap 14 Estim Creat Clear Calc 47.9 Estimated GFR > 60 Random Glucose 202 H Lactic Acid Lactic Acid F/U @ 2Hr Lactic Acid F/U @ 4Hr 3.1 H* Calcium 8.8 Total Bilirubin AST ALT Alkaline Phosphatase Troponin I High Sens B-Natriuretic Peptide Total Protein Albumin Influenza Type A (PCR) Influenza Type B (PCR) RSV RNA Qual (PCR) SARS-CoV-2 RNA (RT-PCR) Assessment and Plan (1) Acute thrombosis of subclavian vein: Status: Acute (2) Pneumonia: Status: Acute (3) COPD exacerbation: Status: Acute (4) Subclavian artery thrombosis: Status: Acute Assessment and Plan: 76-year-old female with a past medical history of rheumatoid arthritis, tobacco dependence, vertebral compression fracture, chronic back pain, iron deficiency anemia, history of recurrent UTIs, history of diastolic heart failure, COPD, ILD, chronic respiratory failure on 4 L of home oxygen, history of left lower extremity DVT on Eliquis; presented to the hospital with a chief complaint of shortness of breath.? Acute hypoxic respiratory failure:?In the setting of COPD exa cerbation/aspiration pneumonia.? Patient on supplemental oxygen at 4-6 L. Treat underlying COPD exacerbation with Neb, steroid Aspiration pneumonia:? CT chest showed??New right middle lobe and left lower lobe atelectasis/consolidation.?Continue IV vanc and Zosyn D2 Left Subclavian artery thrombus:??Currently left upper extremities warm well-perfused, pulses palpable ?CT chest showed?Interval development of new free-floating thrombus in the left subclavian artery with a single attachment to the wall inferiorly. Patient continued on heparin drip.? Dr. Ibrahim? aware of the patieny, add ASA Will also consult Hematology for further inputs History of rheumatoid arthritis: Methotreaxate History of chronic back pain/vertebral compression fractures:? Pain control. History of DVT: Patient currently on heparin drip.? Home Eliquis held. History of dysphagia: Patient was on pureed diet.? Will consult speech and swallow. Quality Stroke Does the patient have a stroke diagnosis?: No VTE Prior VTE?: Yes VTE Risk Level:: Medical - moderate - high VTE Device Contraindication: Treatment Not Indicated VTE Drug Contraindication: N/A - Med Ordered
[2021-06-11] MEDS: 0.9 % Sodium Chloride Flush 3 ML SYRINGE IVFLUSH ×2 (15:14→18:05)
[2021-06-11] MEDS: metHOTREXate sodium 2.5 MG TABLET 10 MG PO (15:14)
--- NOTE | 2021-06-11 15:35 | PC.NURSE ---
PT HAS BEEN GETTING OOB TO COMMODE INDEPENDENTLY. REMAINS ON 6L O2. TOLERATING PO. CURRENTLY ON HEP GTT DUE TO SUBCLAVIAN ART THROMBOSIS, MEDS GIVEN ORDERED NEEDS BEING MET. REPORT GIVEN TO ASHLI EDGAR ON S3
[2021-06-11] MEDS: Cyanocobalamin (Vitamin B-12) 1,000 MCG TABLET 1000 MCG PO (19:50)
[2021-06-11] MEDS: Aspirin 81 MG TAB.CHEW PO (19:50)
[2021-06-11] MEDS: bisacodyL 5 MG TABLET.DR 10 MG PO (19:50)
[2021-06-11 19:57] LABS: PTT Heparin Drip 41.8 SEC (53-77.9)
[2021-06-11] MEDS: Heparin Sodium,Porcine 5,000 UNIT/ML VIAL 2000 UNIT IVPUSH (21:44)
[2021-06-12] VITALS (9 sets, daily range): BP systolic 116–148; BP diastolic 60–80; PULSE 78–112; RESP 18–22; TEMP 36.3–36.6; O2SAT 87–94
[2021-06-12] MEDS: vancomycin HCL 1,000 MG in 0.9 % Sodium Chloride 250 ML 270 MG IV (00:43)
[2021-06-12 02:26] LABS: PTT Heparin Drip 77.5 SEC (53-77.9)
--- NOTE | 2021-06-12 05:12 | PC.NURSE ---
PATIENT ON HEPARIN DRIP, CURRENTLY 18UNITS/KG/HR WITH A RATE OF 8.89ML/HR. PTT-HD DRAWN AT 0200 ORDERED, RESULTS 77.5, THEREFORE, PER PROTOCOL, NO BOLUS AND NO RATE CHANGE NEEDED. NEXT PTT-HD ORDERED FOR 6 HOURS FROM RESULTS AND ENTERED FOR 0830 LAB DRAW. PT OFFERS NO COMPLAINTS, NO S/SX ACTIVE BLEEDING OR BRUISING. SECOND IV SITE ESTABLISHED TO LEFT FOREARM, #22 ANGIO TO SUPPORT IV ABX'S. PATIENT ALERT, CALM, AND CO-OP, HAD SNACK, VOIDED, AND RESTING WELL. WILL CONTINUE TO MONITOR CLOSELY, HOWARD'S AND AMBULATING WITH CLOSE SUPERVISION.
[2021-06-12] MEDS: methylPREDNISolone Sod Succ 40 MG/ML VIAL IVPUSH ×3 (05:38→21:28)
[2021-06-12] MEDS: Piperacillin Sodium/Tazobactam 3.375 GM in 0.9 % Sodium Chloride 50 ML IV ×3 (05:39→19:33)
[2021-06-12] MEDS: Docusate Sodium 100 MG CAPSULE PO ×2 (08:03→19:24)
[2021-06-12] MEDS: Omeprazole 40 MG CAPSULE.DR PO (08:03)
[2021-06-12] MEDS: Aspirin 81 MG TAB.CHEW PO (08:03)
[2021-06-12] MEDS: Calcium + Vitamin D 250 MG TABLET 500 MG PO (08:03)
[2021-06-12] MEDS: Folic Acid 1 MG TABLET PO ×2 (08:04→19:25)
[2021-06-12] MEDS: 0.9 % Sodium Chloride Flush 3 ML SYRINGE IVFLUSH ×3 (08:05→19:27)
[2021-06-12] MEDS: Pregabalin 150 MG CAPSULE PO ×2 (08:05→19:25)
[2021-06-12] MEDS: Morphine Sulfate 2 MG/ML CARTRIDGE 1 MG IVPUSH ×3 (08:16→19:24)
[2021-06-12] MEDS: Albuterol/Iprat 2.5/0.5MG 3 ML AMPUL.NEB INHALE ×4 (08:39→20:50)
[2021-06-12 09:53] LABS: PTT Heparin Drip 78.2 SEC (53-77.9)
[2021-06-12 10:19] LABS: Creatinine Clr Calc Pharmacy 46.6; Estimated Glomerular Filt Rate > 60
--- NOTE | 2021-06-12 11:06 | P.PNIM_ITS ---
Subjective Subjective Date of Service: 07/22/21 Interval History: f/u on subclavian clot, copd, pneumonia, breathing is comfortable. Review of Systems no fever no sob Physical Exam Verdana 4l Vital Signs: Verdana 4d Verdana 4d Vital Signs: Verdana 4d Verdana 4Bd Last Vital Signs Verdana 4d Soybean Grower New 4d Soybean Grower New 4d Temp 97.8 F 06/12/21 07:53 Soybean Grower New 4d Pulse 78 06/12/21 08:42 Soybean Grower New 4d Resp 18 06/12/21 08:42 BP 148/74 H 06/12/21 07:53 Pulse Ox 92 06/12/21 07:53 Oxygen Flow Rate 3 06/10/21 18:25 BMI result Body Mass Index 21.2 Const: Other: General: AO X 3, no acute distress Resp: CTA bilateral CVS: S1,S2,RRR GI: +BS, NT, no distention Skin: No rash Neuro: motor grossly intact Psych: appropriate affect Objective Data Active Medications Acetaminophen (Acetaminophen 325 Mg Tablet) 650 mg PO Q6H PRN PRN Reason: Pain, Mild (Pain Scale 1-3) Albuterol Sulfate (Albuterol Sulfate (0.083%) 2.5 Mg/3 Ml Vial.Neb) 2.5 mg INHALE Q2H PRN PRN Reason: Shortness of Breath/Wheezing Albuterol/Ipratropium (Albuterol/Iprat 2.5/0.5mg 3 Ml Ampul.Neb) 3 ml INHALE RQ4H WHILE AWAKE [facility] Last Admin: 06/12/21 08:39 Dose: 3 ml Documented by: SANDIE Aspirin (Aspirin 81 Mg Tab.Chew) 81 mg PO DAILY [facility] Last Admin: 06/12/21 08:03 Dose: 81 mg Documented by: JOCELINE Bisacodyl (Bisacodyl 5 Mg Tablet.Dr) 10 mg PO BEDTIME [facility] Last Admin: 06/11/21 19:50 Dose: 10 mg Documented by: DONTE Calcium Carbonate/Cholecalciferol (Calcium + Vitamin D 250 Mg Tablet) 500 mg PO DAILY [facility] Last Admin: 06/12/21 08:03 Dose: 500 mg Documented by: JOCELINE Cyanocobalamin (Cyanocobalamin (Vitamin B-12) 1,000 Mcg Tablet) 1,000 mcg PO BEDTIME [facility] Last Admin: 06/11/21 19:50 Dose: 1,000 mcg Documented by: DONTE Docusate Sodium (Docusate Sodium 100 Mg Capsule) 100 mg PO BID [facility] Last Admin: 06/12/21 08:03 Dose: 100 mg Documented by: JOCELINE Folic Acid (Folic Acid 1 Mg Tablet) 1 mg PO BID [facility] Last Admin: 06/12/21 08:04 Dose: 1 mg Documented by: JOCELINE Heparin Sodium (Porcine) (Heparin Sodium,Porcine 5,000 Unit/Ml Vial) 2,000 unit 40 unit/kg (2000 unit) IVPUSH PROTOCOL BOLUS PRN PRN Reason: 40 unit/kg - Heparin Protocol Last Admin: 06/11/21 21:44 Dose: 2,000 unit Documented by: DONTE Heparin Sodium (Porcine) (Heparin Sodium,Porcine 5,000 Unit/Ml Vial) 4,000 unit 80 unit/kg (4000 unit) IVPUSH PROTOCOL BOLUS PRN PRN Reason: 80 unit/kg - Heparin Protocol Vancomycin HCl 1,000 mg/ (Sodium Chloride) 270 mls @ 270 mls/hr IV Q24H [facility] Last Infusion: 06/12/21 02:06 Dose: 0 mls/hr Documented by: CONCHIS Piperacillin Sod/Tazobactam (Sod 3.375 gm/ Sodium Chloride) 50 mls @ 100 mls/hr IV Q6H [facility] Last Admin: 06/12/21 10:31 Dose: 100 mls/hr Documented by: JOCELINE Heparin Sodium/Sodium Chloride () 25,000 unit in 250 mls @ 0 mls/hr IVCONT .Q0M [facility]; Protocol Last Titration: 06/12/21 10:18 Dose: 16 units/kg/hr, 7.91 mls/hr Documented by: JOCELINE Cosigned by: COTDIRK Lorazepam (Lorazepam 1 Mg Tablet) 1 mg PO DAILY PRN PRN Reason: Anxiety Melatonin (Melatonin 3 Mg Tablet) 6 mg PO BEDTIME PRN PRN Reason: Insomnia Methotrexate (Methotrexate Sodium 2.5 Mg Tablet) 10 mg PO [facility] Methylprednisolone Sodium Succinate (Methylprednisolone Sod Succ 40 Mg/Ml Vial) 40 mg IVPUSH Q8H [facility] Last Admin: 06/12/21 05:38 Dose: 40 mg Documented by: CONCHIS Morphine Sulfate (Morphine Sulfate 2 Mg/Ml Cartridge) 1 mg IVPUSH Q4H PRN; Protocol PRN Reason: pain/SOB Last Admin: 06/12/21 08:16 Dose: 1 mg Documented by: JOCELINE Patient Own Medication (Linzess 145 Mcg Capsule) 2 each PO BEDTIME [facility] Last Admin: 06/11/21 19:50 Dose: 2 each Documented by: DONTE Non-Formulary Medication (Risedronate) 1 tab PO Q30D [facility] Patient Own Medication ( Anoro Ellipta 62.5-25 Mcg Inhaler) 1 each INHALE RDAILY [facility] Last Admin: 06/12/21 09:48 Dose: 1 each Documented by: JOCELINE Omeprazole (Omeprazole 40 Mg Capsule.Dr) 40 mg PO DAILY [facility] Last Admin: 06/12/21 08:03 Dose: 40 mg Documented by: JOCELINE Pharmacy Consult (Consult Rx Vancomycin Dosing) 1 each MISCELLANE DAILY PRN PRN Reason: Consult order Pregabalin (Pregabalin 150 Mg Capsule) 150 mg PO BID [facility] Last Admin: 06/12/21 08:05 Dose: 150 mg Documented by: JOCELINE Senna (Sennosides 8.6 Mg Tablet) 17.2 mg PO BEDTIME PRN PRN Reason: Constipation Sodium Chloride (0.9 % Sodium Chloride Flush 3 Ml Syringe) 3 ml IVFLUSH [facility] Last Admin: 06/12/21 09:33 Dose: Not Given Documented by: JOCELINE Non-Admin Reason: IV Running Sodium Chloride (0.9 % Sodium Chloride Flush 3 Ml Syringe) [facility] Last Admin: 06/12/21 08:05 Dose: 3 ml Documented by: JOCELINE Zolpidem Tartrate (Zolpidem Tartrate 5 Mg Tablet) 5 mg PO BEDTIME PRN PRN Reason: Insomnia Last Admin: 06/11/21 04:16 Dose: 5 mg Documented by: LILI Labs CBC & Chem 7: 06/14/21 06:23 06/16/21 06:02 Labs: Laboratory Results - last 24 hr 06/11/21 06/11/21 06/12/21 13:12 19:41 02:09 PTT (Heparin Protocol) 43.7 L 41.8 L 77.5 D Estim Creat Clear Calc Estimated GFR 06/12/21 06/12/21 09:33 09:33 PTT (Heparin Protocol) 78.2 H Estim Creat Clear Calc 46.6 Estimated GFR > 60 Microbiology Microbiology Results: Microbiology 06/10/21 20:09 Blood Culture - Preliminary Blood - Venous No growth after 24 hours. 06/10/21 19:33 Blood Culture - Preliminary Blood - Venous No growth after 24 hours. Assessment and Plan (1) Acute thrombosis of subclavian vein: Status: Acute (2) Subclavian artery thrombosis: Status: Acute (3) COPD exacerbation: Status: Acute Plan 76-year-old female with a past medical history of rheumatoid arthritis, tobacco dependence, vertebral compression fracture, chronic back pain, iron deficiency anemia, history of recurrent UTIs, history of diastolic heart failure, COPD, ILD, chronic respiratory failure on 4 L of home oxygen, history of left lower extremity DVT on Eliquis; presented to the hospital with a chief complaint of shortness of breath.? Acute hypoxic respiratory failure:?In the setting of COPD exacerbation/aspiration pneumonia.? -continue suplemental oxygen L. Treat underlying COPD exacerbation with Neb, steroid Aspiration pneumonia as evident on CT, has been on Vanco and [facility], [place] Vanco. 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 Attempted to transfered to [facility] hospitals but none will take. -continue Heparin, ASA, Dr. Ibrahim will do angiogram tomorrow History of rheumatoid arthritis: Methotreaxate History of chronic back pain/vertebral compression fractures:? Pain control. History of DVT: Patient currently on heparin drip.? Home Eliquis held. History of dysphagia: Patient was on pureed diet.? speech eval. Quality Stroke Does the patient have a stroke diagnosis?: No VTE Prior VTE?: Yes VTE Risk Level:: Medical - moderate - high VTE Device Contraindication: Treatment Not Indicated VTE Drug Contraindication: N/A - Med Ordered
[2021-06-12] MEDS: Heparin Sodium,Porcine/1/2NS 25,000 UNIT/250 ML IV.SOLN 7.91 UNIT IVCONT (11:12)
--- NOTE | 2021-06-12 13:18 | PM.CNGS ---
History of Present Illness Consult details Consult date: 06/12/21 Reason for consult: other (Left subclavian for free-floating thrombus) Narrative: Very pleasant 76-year-old female originally presented to the hospital on for exacerbation of Congestive heart failure. She had a CT angiogram performed to rule out a PE. At that time she was discovered to have this free-floating thrombus within the left subclavian. Her this has been unknown. She has been relatively comfortable. She has had no interval issues. She now presents to us for vascular evaluation. Of note at the time admission it was discussed with the emergency room team that there was no toe endovascular treatment available due to staffing issues on nights and weekends. They made an attempt to transfer to [facility] which was refused. Review of Systems Review of Systems: Yes all other systems are reviewed and are negative Constitutional: Constitutional: Reports no additional constitutional complaints ENT: Reports Normal hearing present Cardiovascular: Cardiovascular: Denies chest pain, Denies chest pain at rest, Denies chest pain with activity, Denies pedal edema and Reports dyspnea Respiratory: Respiratory: Reports cough, Reports excessive phlegm production and Reports dyspnea Gastrointestinal: Gastrointestinal: Denies abdominal pain Musculoskeletal: Musculoskeletal: Denies abnormal gait, Denies muscle cramps and Denies radiating pain into limb Integumentary/Breasts: Skin/Breast: Denies skin ulcer and Denies wounds Neurologic: Reports Normal hearing present and Denies abnormal gait Psychiatric: Psychiatric: Reports no additional psychiatric complaints [facility] Past Medical History Medical History Chronic respiratory failure with hypoxia Compression fracture of T9 vertebra COPD (chronic obstructive pulmonary disease) DVT (deep venous thrombosis) Hiatal hernia History of diverticulitis History of treatment for tuberculosis Interstitial lung disease Left rib fracture Opioid abuse Rash Rib pain on left side Rib pain on right side Surgical History Surgical History H/O colonoscopy H/O esophagogastroduodenoscopy Social History Social History Household Members: None Housing: House Do you presently have visiting nurse or other home services: No Alcohol intake: unknown Patient Tobacco Use Status: Current everyday Tobacco user Tobacco use type: Cigarette Use of substances other than those prescribed or required for medical reasons: No Currently Displaying Signs/Symptoms of Drug Intoxication Withdrawal: No Have you been hit, kicked, punched, or otherwise hurt by someone within the past year? If so, by whom?: No Do you feel safe in your current relationship?: No Current Relationship Is there a partner from a previous relationship who is making you feel unsafe now?: No Are you made to feel afraid or neglected: No Advance Directives: No Advance Directives Information Provided: Yes Do you have thoughts of harming others: None Do you have a plan to hurt others: No Plan Recently lost weight without trying: No Nutrition Risks: No Nutritional Risk Patient : No : No Poor oral hygiene: No service: No Current occupational status: retired [employer] Allergies Allergy/AdvReac Type Severity Reaction Status Date / Time loratadine [From CLARITIN] Allergy Unknown MOUTH SORE Verified 05/18/21 07:14 Active Medications: Current Medications Acetaminophen (Acetaminophen 325 Mg Tablet) 650 mg PO Q6H PRN PRN Reason: Pain, Mild (Pain Scale 1-3) Albuterol Sulfate (Albuterol Sulfate (0.083%) 2.5 Mg/3 Ml Vial.Neb) 2.5 mg INHALE Q2H PRN PRN Reason: Shortness of Breath/Wheezing Albuterol/Ipratropium (Albuterol/Iprat 2.5/0.5mg 3 Ml Ampul.Neb) 3 ml INHALE RQ4H WHILE AWAKE [facility] Last Admin: 06/12/21 12:11 Dose: 3 ml Documented by: Aspirin (Aspirin 81 Mg Tab.Chew) 81 mg PO DAILY [facility] Last Admin: 06/12/21 08:03 Dose: 81 mg Documented by: Bisacodyl (Bisacodyl 5 Mg Tablet.Dr) 10 mg PO BEDTIME [facility] Last Admin: 06/11/21 19:50 Dose: 10 mg Documented by: Calcium Carbonate/Cholecalciferol (Calcium + Vitamin D 250 Mg Tablet) 500 mg PO DAILY [facility] Last Admin: 06/12/21 08:03 Dose: 500 mg Documented by: Cyanocobalamin (Cyanocobalamin (Vitamin B-12) 1,000 Mcg Tablet) 1,000 mcg PO BEDTIME [facility] Last Admin: 06/11/21 19:50 Dose: 1,000 mcg Documented by: Docusate Sodium (Docusate Sodium 100 Mg Capsule) 100 mg PO BID [facility] Last Admin: 06/12/21 08:03 Dose: 100 mg Documented by: Folic Acid (Folic Acid 1 Mg Tablet) 1 mg PO BID [facility] Last Admin: 06/12/21 08:04 Dose: 1 mg Documented by: Heparin Sodium (Porcine) (Heparin Sodium,Porcine 5,000 Unit/Ml Vial) 2,000 unit 40 unit/kg (2000 unit) IVPUSH PROTOCOL BOLUS PRN PRN Reason: 40 unit/kg - Heparin Protocol Last Admin: 06/11/21 21:44 Dose: 2,000 unit Documented by: Heparin Sodium (Porcine) (Heparin Sodium,Porcine 5,000 Unit/Ml Vial) 4,000 unit 80 unit/kg (4000 unit) IVPUSH PROTOCOL BOLUS PRN PRN Reason: 80 unit/kg - Heparin Protocol Piperacillin Sod/Tazobactam (Sod 3.375 gm/ Sodium Chloride) 50 mls @ 100 mls/hr IV Q6H [facility] Last Infusion: 06/12/21 11:42 Dose: Infused Documented by: Heparin Sodium/Sodium Chloride () 25,000 unit in 250 mls @ 0 mls/hr IVCONT .Q0M [facility]; Protocol Last Admin: 06/12/21 11:12 Dose: 16 units/kg/hr, 7.91 mls/hr Documented by: Lorazepam (Lorazepam 1 Mg Tablet) 1 mg PO DAILY PRN PRN Reason: Anxiety Melatonin (Melatonin 3 Mg Tablet) 6 mg PO BEDTIME PRN PRN Reason: Insomnia Methotrexate (Methotrexate Sodium 2.5 Mg Tablet) 10 mg PO [facility] Methylprednisolone Sodium Succinate (Methylprednisolone Sod Succ 40 Mg/Ml Vial) 40 mg IVPUSH Q8H [facility] Last Admin: 06/12/21 05:38 Dose: 40 mg Documented by: Morphine Sulfate (Morphine Sulfate 2 Mg/Ml Cartridge) 1 mg IVPUSH Q4H PRN; Protocol PRN Reason: pain/SOB Last Admin: 06/12/21 08:16 Dose: 1 mg Documented by: Patient Own Medication (Linzess 145 Mcg Capsule) 2 each PO BEDTIME [facility] Last Admin: 06/11/21 19:50 Dose: 2 each Documented by: Non-Formulary Medication (Risedronate) 1 tab PO Q30D [facility] Patient Own Medication ( Anoro Ellipta 62.5-25 Mcg Inhaler) 1 each INHALE RDAILY [facility] Last Admin: 06/12/21 09:48 Dose: 1 each Documented by: Omeprazole (Omeprazole 40 Mg Capsule.) 40 mg PO DAILY [facility] Last Admin: 06/12/21 08:03 Dose: 40 mg Documented by: Pregabalin (Pregabalin 150 Mg Capsule) 150 mg PO BID [facility] Last Admin: 06/12/21 08:05 Dose: 150 mg Documented by: Senna (Sennosides 8.6 Mg Tablet) 17.2 mg PO BEDTIME PRN PRN Reason: Constipation Sodium Chloride (0.9 % Sodium Chloride Flush 3 Ml Syringe) 3 ml IVFLUSH [facility] Last Admin: 06/12/21 09:33 Dose: Not Given Documented by: Sodium Chloride (0.9 % Sodium Chloride Flush 3 Ml Syringe) 3 ml IVFLUSH [facility] Last Admin: 06/12/21 08:05 Dose: 3 ml Documented by: Zolpidem Tartrate (Zolpidem Tartrate 5 Mg Tablet) 5 mg PO BEDTIME PRN PRN Reason: Insomnia Last Admin: 06/11/21 04:16 Dose: 5 mg Documented by: Home Medications Medication Instructions Recorded Confirmed Last Taken Type cyanocobalamin (vitamin B-12) 1,000 mcg PO BEDTIME 03/31/21 06/11/21 05/17/21 History 1,000 mcg tablet docusate sodium 100 mg capsule 100 mg PO BID 03/31/21 06/11/21 05/17/21 History folic acid 1 mg tablet 1 mg PO BID 03/31/21 06/11/21 05/17/21 History methotrexate sodium 2.5 mg tablet 10 mg PO SA@0900 03/31/21 06/11/21 05/13/21 History omeprazole 40 mg capsule,delayed 40 mg PO DAILY@0630 03/31/21 06/11/21 05/17/21 History release oxycodone 5 mg tablet 5 mg PO TID PRN 03/31/21 06/11/21 03/30/21 History umeclidinium 62.5 mcg-vilanterol 1 inh INHALATION DAILY 03/31/21 06/11/21 05/17/21 History 25 mcg/actuation powdr for inhalation (Anoro Ellipta) linaclotide 290 mcg capsule 290 mcg PO BEDTIME 05/18/21 06/11/21 05/17/21 History (Linzess) pregabalin 150 mg capsule 1 cap PO TID 05/18/21 06/11/21 05/17/21 History risedronate 150 mg tablet 1 tab PO QMONTH 05/18/21 06/11/21 05/15/21 History zolpidem 5 mg tablet 1 tab PO BEDTIME PRN 05/18/21 06/11/21 Unknown History lorazepam 1 mg tablet 1 tab PO DAILY PRN 06/11/21 06/11/21 Unknown History prednisone 20 mg tablet 10 mg PO DAILY 06/11/21 06/11/21 Unknown History Physical Exam Vital Signs: Vital Signs: Last Vital Signs Temp 97.4 F 06/12/21 11:28 Pulse 82 06/12/21 12:12 Resp 22 H 06/12/21 12:12 BP 120/60 06/12/21 11:28 Pulse Ox 87 L 06/12/21 11:28 Oxygen Flow Rate 3 06/10/21 18:25 BMI result Body Mass Index 21.2 Const: General: cooperative, healthy appearing and comfortable Orientation/consciousness: oriented to person, oriented to place and oriented to time HENMT: Head: Yes normal to inspection Neck: Neck: Yes normal visual inspection Carotids: no bruits Chest: Chest palpation & inspection: normal inspection of the chest Resp: Effort & Inspection: normal respiratory effort and able to speak in complete sentences Auscultation: clear to auscultation bilaterally, no crackles, no rales, no rhonchi and no wheezes Cardio: Rate: regular rate Rhythm: regular rhythm Heart sounds: S1 normal heart sound present and S2 normal heart sound present Bruits: no carotid bruits Peripheral pulses: brachial pulses present, radial pulses present and ulnar radial pulses present GI: Inspection: Yes normal to inspection Skin: Wounds: no wounds Hair: normal Neuro: General: oriented to person, oriented to place and oriented to time Cranial nerves: Yes CN's II-XII intact bilaterally and Yes Normal hearing present Cognition (Neuro): normal cognition Motor exam (neuro): 5/5 motor strength present throughout Extrem: Other: venous exam: No significant superficial varicosities or spider telangiectasias, minimal edema General: No clubbing, No cyanosis and No edema Psych: Appearance: grossly normal Mental Status: mental status grossly normal Speech and movement: Normal speech and movement present Results Labs Result diagrams: 06/11/21 04:02 06/12/21 09:33 Labs: Abnormal lab results 06/11/21 06/11/21 06/12/21 Range/Units 13:12 19:41 09:33 PTT (Heparin Protocol) 43.7 L 41.8 L 78.2 H (53-77.9) SEC BMP 06/12/21 09:33 Creatinine 0.76 All other labs normal. Assessment and Plan (1) Subclavian artery thrombosis: Status: Acute Patient notes left subclavian thrombus. This is a new finding and it appears to be a free-floating thrombus which was noted on CT scan. I have discussed the pathophysiology of peripheral vascular disease with the patient. I have also discussed risk factor modification. I have reviewed the patient's arterial testing which reveals left subclavian thrombus within the origin. the patient would benefit from a left subclavian endovascular peripheral angiogram with possible angioplasty, stent, and/or atherectomy. This has been discussed in detail with the patient along with risks, benefits, and complications. This includes but is not limited to bleeding, infection, heart attack, need for emergent surgical repair, limb ischemia, blood vessel damage, bleeding, puncture, kidney injury, bruising, allergic reaction, and skin reaction. The patient demonstrates a clear understanding. In addition this was discussed with the patient's brother Jose by telephone as well. We will schedule for tomorrow. Thank you for allowing us to assist in this patient's care. Procedures Date of Service Date of Service: 06/12/21
[2021-06-12] MEDS: Cyanocobalamin (Vitamin B-12) 1,000 MCG TABLET 1000 MCG PO (19:25)
[2021-06-12] MEDS: bisacodyL 5 MG TABLET.DR 10 MG PO (19:25)
[2021-06-12 21:27] LABS: Vancomycin Trough 5.5 mcg/mL (10.0-20.0)
[2021-06-12] MEDS: LORazepam 1 MG TABLET PO (21:29)
[2021-06-12] MEDS: Zolpidem Tartrate 5 MG TABLET PO (21:29)
[2021-06-13] VITALS (9 sets, daily range): BP systolic 135–156; BP diastolic 65–92; PULSE 86–101; RESP 18–21; TEMP 36.3–37.1; O2SAT 91–94
[2021-06-13] MEDS: 0.9 % Sodium Chloride Flush 3 ML SYRINGE IVFLUSH ×4 (00:06→17:27)
[2021-06-13] MEDS: Piperacillin Sodium/Tazobactam 3.375 GM in 0.9 % Sodium Chloride 50 ML IV ×4 (00:06→16:37)
[2021-06-13] MEDS: methylPREDNISolone Sod Succ 40 MG/ML VIAL IVPUSH ×3 (04:24→20:37)
[2021-06-13] MEDS: Morphine Sulfate 2 MG/ML CARTRIDGE 1 MG IVPUSH ×3 (04:25→20:31)
[2021-06-13 07:33] LABS: Creatinine Clr Calc Pharmacy 48.5; Estimated Glomerular Filt Rate > 60
--- NOTE | 2021-06-13 08:56 | MHC.CDI.CONC ---
CDI Concurrent Query Documentation Clarification: PHYSICIAN'S DOCUMENTATION REQUEST Date of Query: 06/13/21 0857 Patient Name: Elmira Bingham Admit Date: 06/11/21 Dear Doctor, A review of the medical record indicates additional documentation may be needed. Please review below and update the documentation accordingly. Risk Factors/Clinical Indicators/Treatments Compression Fracture of T9 vertebra. Chronic back pain, osteoporosis, Rheumatoid Arthritis. Pain control. Please provide the following additional clarification regarding the fracture: Etiology: Traumatic compression fracture Pathologic due to osteoporosis Pathologic due to other disease (please specify) Nontraumatic compression fracture Unable to determine Use of terms such as suspected, likely, concern for, or probable (associated with a specific diagnosis that is being evaluated, monitored, or treated as if it exists) are acceptable and can be coded in the inpatient setting, when documented at the time of discharge. Thank you, Iqra Smith [facility], [facility] Extension: [phone] Please use your independent medical judgment in providing your response. THIS QUERY IS PART OF THE PERMANENT MEDICAL RECORD Provider Response: Other Other Diagnosis: compression fracture chronic -unclear etiology
[2021-06-13 09:00] LABS: Hematocrit 37.1 % (37.0-47.0); Hemoglobin 10.2 g/dl (12.0-16.0); Mean Corpuscular HGB Conc 27.5 g/dl (31.0-35.0); Mean Corpuscular Hemoglobin 20.7 pg (27.0-33.0); Mean Corpuscular Volume 75.3 fL (80.0-98.0); Mean Platelet Volume 10.8 fL (9.4-12.3); Platelet Count 337 X10*3/uL (160-400); Red Blood Count 4.93 X10*6/uL (4.20-5.50); Red Cell Distribution Width 28.5 % (11.0-16.0)
--- NOTE | 2021-06-13 10:11 | W.PM.OPN ---
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 Ultrasound-guided right common femoral access 2. Aortogram of aortic arch 3. Selective cannulation left common carotid 4. Selective cannulation of left subclavian artery 5. Stent placement of left subclavian at origin Surgeon:Saji Ibrahim M.D., FACS, RPVI Environmental Resource Specialist:None Anesthesia: Local with moderate conscious sedation. Total intraservice moderate sedation time was 76 minutes. I monitored the patient's level of consciousness and physiologic status continuously throughout the procedure. Specimens:none Drains:none Estimated blood loss: Less than 10 ml Implant: [place] [id number] [id number] Indications: 76-year-old female who presented to the emergency room with shortness of breath. Upon workup and evaluation with CT angiogram for PE protocol was found to have free-floating left subclavian thrombus. The patient has signed the informed consent after reviewing risks, complications, benefits, and alternatives previously discussed with the patient. The patient was given the opportunity to ask any additional questions or voice any concerns. All questions were answered to the patient's satisfaction. Procedure in detail: Patient was brought to the angiography suite prior to which a time-out was called for patient identification and site verification. Bilateral groins were prepped and draped in the standard surgical fashion. Under ultrasound guidance right common femoral was punctured with micro puncture needle and wire. Subsequently a precision 5 Swedish sheath was then placed. Bentson wire was advanced to the level of the aorta. 5 Swedish Flush catheter was brought up and parked at the level of aortic arch Aortogram was then undertaken. Catheter was brought down to the level of the iliac bifurcation. Iliacs were subsequently imaged. Catheter was then brought in up into the aortic arch once again. And at this time 4000 units of systemic heparin was administered. After 5 minutes of circulation time we exchanged out for a 7 Swedish sheath and then advanced a 100 cm angled glide catheter. We selectively cannulated the left common carotid which demonstrated no significant disease. We were then able to selectively cannulate the left subclavian artery. Multiple orthogonal views of this area was then undertaken. We were able to identify the mammary and vertebral artery. At this time we brought in a [place] VBX balloon expandable stent which was 7 x 19. We placed it at the origin of the left subclavian just entering into the aortic arch. Once this was deployed completion angiogram demonstrated good result. Catheter and wire were removed, and via the 7 Swedish sheath iliacs were imaged. StarClose closure device was deployed. Patient tolerated the procedure well. Returned to recovery with stable vitals. Interpretation of films: 1. Ultrasound demonstrates appropriate femoral puncture. Image of which was saved. 2. Aortogram demonstrates appropriate caliber aorta. Minimal disease. Appropriate take-off of the renals. 3. Iliac images demonstrate normal caliber with no significant disease. 4. Aortic arch demonstrated a type 3 arch. There was some calcific disease at the origin of the great vessels. 5. Left common carotid and internal carotid demonstrate no significant disease 6. Left subclavian demonstrated significant disease with good flow noted after stent placement. We did see a flow differential where there was this free-floating thrombus which appeared to be tacked down after the stent placement. Conclusion: 1. Successful placement of left subclavian stent 2. Anticoagulation status: Maintained on Eliquis This note is constructed using voice recognition software. While every effort has been made to ensure accuracy, business applications analyst errors may have been included. Thank you for allowing me to participate in the care of your patient. Yours sincerely, Saji Ibrahim MD, FACS, R.P.V.I.
[2021-06-13 12:19] LABS: Prothrombin Time 11.4 SEC (9.9-13.0)
[2021-06-13 12:22] LABS: PTT Heparin Drip 28.9 SEC (53-77.9)
--- NOTE | 2021-06-13 13:30 | P.PNIM_ITS ---
Subjective Subjective Date of Service: 06/13/21 Interval History: f/u on subclavian clot, copd, pneumonia, Review of Systems denies any chest pain or shortness of breath or no fever Physical Exam Vital Signs: Vital Signs: Last Vital Signs Temp 97.8 F 06/13/21 11:33 Pulse 92 06/13/21 11:33 Resp 21 H 06/13/21 11:33 BP 135/65 06/13/21 11:33 Pulse Ox 92 06/13/21 11:33 Oxygen Flow Rate 3 06/10/21 18:25 BMI result Body Mass Index 21.2 General: AO X 3, no acute distress Resp:? CTA bilateral CVS: S1,S2,RRR GI: +BS, NT, no distention Skin: No rash Neuro:? motor grossly intact Psych: appropriate affect ? Objective Data Active Medications Acetaminophen (Acetaminophen 325 Mg Tablet) 650 mg PO Q6H PRN PRN Reason: Pain, Mild (Pain Scale 1-3) Albuterol Sulfate (Albuterol Sulfate (0.083%) 2.5 Mg/3 Ml Vial.Neb) 2.5 mg INHALE Q2H PRN PRN Reason: Shortness of Breath/Wheezing Albuterol/Ipratropium (Albuterol/Iprat 2.5/0.5mg 3 Ml Ampul.Neb) 3 ml INHALE RQ4H WHILE AWAKE [facility] Last Admin: 06/13/21 12:29 Dose: Not Given Documented by: JOSE Non-Admin Reason: Off Unit: Surgery Apixaban (Apixaban 5 Mg Tablet) 5 mg PO BID [facility] Aspirin (Aspirin 81 Mg Tab.Chew) 81 mg PO DAILY [facility] Last Admin: 06/13/21 10:43 Dose: Not Given Documented by: ALIZE Non-Admin Reason: Off Unit: Surgery Bisacodyl (Bisacodyl 5 Mg Tablet.) 10 mg PO BEDTIME [facility] Last Admin: 06/12/21 19:25 Dose: 10 mg Documented by: RAFA Calcium Carbonate/Cholecalciferol (Calcium + Vitamin D 250 Mg Tablet) 500 mg PO DAILY [facility] Last Admin: 06/13/21 10:43 Dose: Not Given Documented by: ALIZE Non-Admin Reason: Off Unit: Surgery Cyanocobalamin (Cyanocobalamin (Vitamin B-12) 1,000 Mcg Tablet) 1,000 mcg PO BEDTIME [facility] Last Admin: 06/12/21 19:25 Dose: 1,000 mcg Documented by: RAFA Docusate Sodium (Docusate Sodium 100 Mg Capsule) 100 mg PO BID [facility] Last Admin: 06/13/21 10:45 Dose: Not Given Documented by: ALIZE Non-Admin Reason: Off Unit: Surgery Folic Acid (Folic Acid 1 Mg Tablet) 1 mg PO BID [facility] Last Admin: 06/13/21 10:45 Dose: Not Given Documented by: ALIZE Non-Admin Reason: Off Unit: Surgery Piperacillin Sod/Tazobactam (Sod 3.375 gm/ Sodium Chloride) 50 mls @ 100 mls/hr IV Q6H [facility] Last Admin: 06/13/21 12:03 Dose: 100 mls/hr Documented by: ALIZE Lorazepam (Lorazepam 1 Mg Tablet) 1 mg PO DAILY PRN PRN Reason: Anxiety Last Admin: 06/12/21 21:29 Dose: 1 mg Documented by: RAFA Melatonin (Melatonin 3 Mg Tablet) 6 mg PO BEDTIME PRN PRN Reason: Insomnia Methotrexate (Methotrexate Sodium 2.5 Mg Tablet) 10 mg PO [facility] Methylprednisolone Sodium Succinate (Methylprednisolone Sod Succ 40 Mg/Ml Vial) 40 mg IVPUSH Q8H [facility] Last Admin: 06/13/21 04:24 Dose: 40 mg Documented by: RAFA Morphine Sulfate (Morphine Sulfate 2 Mg/Ml Cartridge) 1 mg IVPUSH Q4H PRN; Protocol PRN Reason: pain/SOB Last Admin: 06/13/21 10:32 Dose: 1 mg Documented by: JORGE L Patient Own Medication (Linzess 145 Mcg Capsule) 2 each PO BEDTIME [facility] Last Admin: 06/12/21 19:26 Dose: 2 each Documented by: RAFA Non-Formulary Medication (Risedronate) 1 tab PO Q30D [facility] Patient Own Medication ( Anoro Ellipta 62.5-25 Mcg Inhaler) 1 each INHALE RDAILY [facility] Last Admin: 06/13/21 10:43 Dose: Not Given Documented by: ALIZE Non-Admin Reason: Off Unit: Surgery Omeprazole (Omeprazole 40 Mg Capsule.) 40 mg PO DAILY [facility] Last Admin: 06/13/21 10:45 Dose: Not Given Documented by: ALIZE Non-Admin Reason: Off Unit: Surgery Pregabalin (Pregabalin 150 Mg Capsule) 150 mg PO BID [facility] Last Admin: 06/13/21 10:45 Dose: Not Given Documented by: ALIZE Non-Lzi Reason: Off Unit: Surgery Senna (Sennosides 8.6 Mg Tablet) 17.2 mg PO BEDTIME PRN PRN Reason: Constipation Sodium Chloride (0.9 % Sodium Chloride Flush 3 Ml Syringe) 3 ml IVFLUSH [facility] Last Admin: 06/13/21 10:43 Dose: Not Given Documented by: ALIZE Non-Admin Reason: Off Unit: Surgery Sodium Chloride (0.9 % Sodium Chloride Flush 3 Ml Syringe) 3 ml IVFLUSH [facility] Last Admin: 06/13/21 10:43 Dose: Not Given Documented by: ALIZE Non-Admin Reason: Off Unit: Surgery Zolpidem Tartrate (Zolpidem Tartrate 5 Mg Tablet) 5 mg PO BEDTIME PRN PRN Reason: Insomnia Last Admin: 06/12/21 21:29 Dose: 5 mg Documented by: RAFA Labs CBC & Chem 7: 06/13/21 05:59 06/13/21 05:59 Labs: Laboratory Results - last 24 hr 06/12/21 06/12/21 06/13/21 18:05 21:00 05:59 MCV MCH MCHC RDW Plt Count MPV Absolute Nucleated RBC Nucleated RBC % (auto) PT INR PTT (Heparin Protocol) 24.0 L D Estim Creat Clear Calc 48.5 Estimated GFR > 60 Vancomycin Trough 5.5 L 06/13/21 06/13/21 05:59 12:08 MCV 75.3 L MCH 20.7 L MCHC 27.5 L RDW 28.5 H Plt Count 337 MPV 10.8 Absolute Nucleated RBC 0.000 Nucleated RBC % (auto) 0.0 PT 11.4 INR 1.0 PTT (Heparin Protocol) 28.9 L D Estim Creat Clear Calc Estimated GFR Vancomycin Trough Microbiology Microbiology Results: Microbiology 06/10/21 20:09 Blood Culture - Preliminary Blood - Venous No growth after 48 hours. 06/10/21 19:33 Blood Culture - Preliminary Blood - Venous No growth after 48 hours. Assessment and Plan (1) Pneumonia: Status: Acute (2) Acute thrombosis of subclavian vein: Status: Acute (3) COPD exacerbation: Status: Acute Assessment and Plan: 76-year-old female with a past medical history of rheumatoid arthritis, tobacco dependence, vertebral compression fracture, chronic back pain, iron deficiency anemia, history of recurrent UTIs, history of diastolic heart failure, COPD, ILD, chronic respiratory failure on 4 L of home oxygen, history of left lower extremity DVT on Eliquis; presented to the hospital with a chief complaint of shortness of breath.? 1.Acute hypoxic respiratory failure:?In the setting of COPD exacerbation/aspiration pneumonia.? -continue suplemental oxygen, Neb, steroid 2.Aspiration pneumonia as evident on CT, has been on Vanco and Zosyn, DC Vanco. Left Subclavian artery thrombus while on eliquis:??Currently left upper e xtremities warm well-perfused, pulses palpable. Attempted to transfered to [facility] hospitals but none will take. continue asa , going for angiogram , vascular recommended to hold off IV heparin, if angiogram seems fine then patient is to be started on p.o. Eliquis. 3.History of rheumatoid arthritis: Methotreaxate. 4.History of chronic back pain/vertebral compression fractures:? Pain control. 5.History of DVT: as above in Subclavian artery thrombus section. 6.History of dysphagia: Patient was on pureed diet.? speech eval. Quality Stroke Does the patient have a stroke diagnosis?: No VTE Prior VTE?: Yes VTE Risk Level:: Medical - moderate - high VTE Device Contraindication: Treatment Not Indicated VTE Drug Contraindication: N/A - Med Ordered
--- NOTE | 2021-06-13 14:43 | MHC.CM.PN ---
NURSE BRINE TANK SEPARATOR OPERATOR NOTE LATE ENTRY FROM 06/12/21 MET WITH PATIENT VERY PLEASANT , [facility] CONTACT , REPORTED SHE LIVES ALONE WITH HER CATS (NEIGHBOR [employer] CARING AND FEEDING THEM) SHE HAS [facility] INSURANCE WITH VISIT SPARINGLY NO OTHER VNA SERVICES IN THE HOME , HAS [id number] , home oxygen 4liters cont, (DOES NOT REMBER NAME OF CO,)independent in adls and mobility with cane , has a COMMODE, OPEN TO HAVING VNA IN THE HOME hx BIPOLAR . 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 SHE REPORTED SHE WOULD TYALK WITH THEM
[2021-06-13] MEDS: Acetaminophen 325 MG TABLET 650 MG PO (16:38)
--- NOTE | 2021-06-13 18:43 | MHC.SL.SWA ---
Speech Pathologist Impression: Oralpharyngeal Dysphagia Risk of Aspiration Due to: History of Pneumonia Reduced Cognition Dysphasia Diet Status: Downgrade Liquid Consistency and Strategies for Safe Swallow: Liquid Intake Recommendation: Honey Thick Liquid Intake Strategies: No Straws Liquids by Teaspoon Only Solid Food Consistency: Dietary Recommendations: Pureed (NDD1) Additional Modifications to Solid Foods: Oral Medication Intake: Crushed with Puree Compensatory Strategies and Precautions to be Taken for Safe Swallow: Supervision While Eating and Drinking for Safe Swallow: Total Supervision (1:1) Foods to Avoid: Please do not give straw or thin liquids to pt Swallowing Recommended Treatments: Compens. Strategy Educat. Recommendation for Speech: Inpatient Speech Therapy Comment: Pt with significant HX oralpharyngeal dysphagia well documented by [facility] at [facility] [place]. Pt likely silently aspirates, although on thin liquid presents with wet voice after swallow (on straw sip). Aspiration on thin and nectar thick liquids were demonstrated on previous MBSS with toleration of HONEY thick liquids, PUREED consistency foods. On MBS, Pt tolerated these consistencies well, with mild delay initiating swallow on Puree, no clinical s/s aspiration. Recommend Pt Diet be DOWNGRADED to PUREED (NDD1) w/ HONEY thick liquids, pills CRUSHED in PUREE. Pt will need 1-1 Supervision during meals, w/strict aspiration precautions, and close monitor that she is not accessing inappropriate foods/liquids. Diet Recommendation sent by secure text to MD, Directional Survey Drafter and discussed with nursing. RESEARCH ANIMAL ATTENDANT will enter downgrade in diet orders. Frequency/Duration: RESEARCH ANIMAL ATTENDANT will follow Pt while admitted, re-assess swallow, adjust diet consistencies if needed. Date Range for Service Req: M-F Timeline to reassess: Process Worker Clinican/Clinical Fellow: No Supervisory Statement: I have reviewed and agree with the student/clinical fellow's documentation: N/A Speech Language Pathologist: Carisa Irizarry M.A., CCC-RESEARCH ANIMAL ATTENDANT
[2021-06-13] MEDS: Albuterol/Iprat 2.5/0.5MG 3 ML AMPUL.NEB INHALE (19:04)
--- NOTE | 2021-06-13 19:40 | PC.NURSE ---
Pt alert and oriented x3 but hs periods of forgetful and agitation and anxiety. Pt is s/O subclavian thrombus repair with a and incision to the right groin area. Incision is intact, and no S/Sx of bleeding.
[2021-06-13] MEDS: Apixaban 5 MG TABLET PO (20:34)
[2021-06-13] MEDS: Pregabalin 150 MG CAPSULE PO (20:34)
[2021-06-13] MEDS: bisacodyL 5 MG TABLET.DR 10 MG PO (20:34)
[2021-06-13] MEDS: Cyanocobalamin (Vitamin B-12) 1,000 MCG TABLET 1000 MCG PO (20:34)
[2021-06-13] MEDS: Folic Acid 1 MG TABLET PO (20:34)
[2021-06-13] MEDS: Docusate Sodium 100 MG CAPSULE PO (20:34)
[2021-06-14] VITALS (8 sets, daily range): BP systolic 101–152; BP diastolic 79–90; PULSE 73–129; RESP 15–24; TEMP 36.1–37; O2SAT 89–94
[2021-06-14] MEDS: Piperacillin Sodium/Tazobactam 3.375 GM in 0.9 % Sodium Chloride 50 ML IV ×4 (00:13→17:03)
[2021-06-14] MEDS: Morphine Sulfate 2 MG/ML CARTRIDGE 1 MG IVPUSH ×4 (00:15→17:03)
[2021-06-14] MEDS: 0.9 % Sodium Chloride Flush 3 ML SYRINGE IVFLUSH ×5 (00:16→17:02)
--- NOTE | 2021-06-14 01:32 | MHC.PIE ---
p; monitor shows 3 beat v tach. note; pt denies chest pain or dizziness, but is c/o back pain i; dr hansen notified. prn morphine given e; will cont to monitor
--- NOTE | 2021-06-14 01:46 | MHC.PIE ---
late entry;06/13 2100 p; pt agitated anxious yelling out for pain med. note; when this blog writer went into room, pt accusatory reporting i been calling for hours no fredrick came in all day and I didn't see the dr all day etc. pt started to cry that her nephew called and her sister needs her help and need to get out of hosp but don't want to sign out. note; when pt educate on leaving ama is signing out, pt became angry and accusatory threatening to just walk out. pt was offered ama paper to sign but refused to leave. where then as this blog writer left the room, pt called furnace charging machine operator numerous times making accusatory statements on all the staff on the unit, complaining about food, drinks, dr's, missing her cats and ect. i; pt redirected multiple times, pt educated in how pt had angiogram this am and have spoken with md in pre op and the importance of staying in hosp till at least am till she can get a ride multiple times. prn morphine given. e; pt became apologetic at the same time pretending that she don't remember the things the she have said and done being manipulative. will cont to monitor
[2021-06-14] MEDS: methylPREDNISolone Sod Succ 40 MG/ML VIAL IVPUSH ×3 (05:41→20:33)
[2021-06-14 06:47] LABS: Hematocrit 38.2 % (37.0-47.0); Hemoglobin 10.5 g/dl (12.0-16.0); Mean Corpuscular HGB Conc 27.5 g/dl (31.0-35.0); Mean Corpuscular Hemoglobin 20.6 pg (27.0-33.0); Mean Platelet Volume 10.1 fL (9.4-12.3); Platelet Count 309 X10*3/uL (160-400); Red Blood Count 5.09 X10*6/uL (4.20-5.50); Red Cell Distribution Width 28.5 % (11.0-16.0); White Blood Count 15.8 X10*3/uL (4.8-10.8)
[2021-06-14 07:01] LABS: Creatinine Clr Calc Pharmacy 57.1; Estimated Glomerular Filt Rate > 60
[2021-06-14 07:07] LABS: INTERNATIONAL NORM RATIO 1.1 (0.9-1.1); Prothrombin Time 12.9 SEC (9.9-13.0)
[2021-06-14] MEDS: Albuterol/Iprat 2.5/0.5MG 3 ML AMPUL.NEB INHALE ×3 (08:33→20:17)
[2021-06-14] MEDS: Apixaban 5 MG TABLET PO ×2 (09:39→20:35)
[2021-06-14] MEDS: Calcium + Vitamin D 250 MG TABLET 500 MG PO (09:39)
[2021-06-14] MEDS: Pregabalin 150 MG CAPSULE PO ×2 (09:39→20:35)
[2021-06-14] MEDS: Folic Acid 1 MG TABLET PO ×2 (09:39→20:35)
[2021-06-14] MEDS: Aspirin 81 MG TAB.CHEW PO (09:39)
[2021-06-14] MEDS: Docusate Sodium 100 MG CAPSULE PO ×2 (09:39→20:35)
[2021-06-14] MEDS: LORazepam 1 MG TABLET PO ×2 (11:21→18:25)
--- NOTE | 2021-06-14 13:08 | HO.PM.IMPN ---
Subjective Subjective Date of Service: 06/14/21 Interval History: copd excerebatio/asp pneumonia Review of Systems Still short of breath, oxygen demand is going up denies any chest pain or abdominal pain or cough or phlegm. Physical Exam Vital Signs: Vital Signs: Last Vital Signs Temp 97.7 F 06/14/21 11:34 Pulse 80 06/14/21 11:34 Resp 18 06/14/21 08:37 BP 101/80 06/14/21 11:34 Pulse Ox 93 06/14/21 11:58 Oxygen Flow Rate 3 06/10/21 18:25 BMI result Body Mass Index 21.2 General: AO X 3, no acute distress Resp:?has b/l wheezin CVS: S1,S2,RRR GI: +BS, NT, no distention Skin: No rash Neuro:? motor grossly intact Psych: appropriate affect ? Objective Data Active Medications Acetaminophen (Acetaminophen 325 Mg Tablet) 650 mg PO Q6H PRN PRN Reason: Pain, Mild (Pain Scale 1-3) Last Admin: 06/13/21 16:38 Dose: 650 mg Documented by: ALIZE Albuterol Sulfate (Albuterol Sulfate (0.083%) 2.5 Mg/3 Ml Vial.Neb) 2.5 mg INHALE Q2H PRN PRN Reason: Shortness of Breath/Wheezing Albuterol/Ipratropium (Albuterol/Iprat 2.5/0.5mg 3 Ml Ampul.Neb) 3 ml INHALE RQ4H WHILE AWAKE [facility] Last Admin: 06/14/21 12:37 Dose: Not Given Documented by: HEATHER Non-Admin Reason: pt eating Apixaban (Apixaban 5 Mg Tablet) 5 mg PO BID [facility] Last Admin: 06/14/21 09:39 Dose: 5 mg Documented by: NELLY Aspirin (Aspirin 81 Mg Tab.Chew) 81 mg PO DAILY [facility] Last Admin: 06/14/21 09:39 Dose: 81 mg Documented by: NELLY Bisacodyl (Bisacodyl 5 Mg Tablet.Dr) 10 mg PO BEDTIME [facility] Last Admin: 06/13/21 20:34 Dose: 10 mg Documented by: RAFA Calcium Carbonate/Cholecalciferol (Calcium + Vitamin D 250 Mg Tablet) 500 mg PO DAILY [facility] Last Admin: 06/14/21 09:39 Dose: 500 mg Documented by: NELLY Cyanocobalamin (Cyanocobalamin (Vitamin B-12) 1,000 Mcg Tablet) 1,000 mcg PO BEDTIME [facility] Last Admin: 06/13/21 20:34 Dose: 1,000 mcg Documented by: RAFA Docusate Sodium (Docusate Sodium 100 Mg Capsule) 100 mg PO BID [facility] Last Admin: 06/14/21 09:39 Dose: 100 mg Documented by: NELLY Folic Acid (Folic Acid 1 Mg Tablet) 1 mg PO BID [facility] Last Admin: 06/14/21 09:39 Dose: 1 mg Documented by: NELLY Piperacillin Sod/Tazobactam (Sod 3.375 gm/ Sodium Chloride) 50 mls @ 100 mls/hr IV Q6H [facility] Last Infusion: 06/14/21 11:48 Dose: 0 mls/hr Documented by: JOCELINE Lorazepam (Lorazepam 1 Mg Tablet) 1 mg PO DAILY PRN PRN Reason: Anxiety Last Admin: 06/14/21 11:21 Dose: 1 mg Documented by: JOCELINE Melatonin (Melatonin 3 Mg Tablet) 6 mg PO BEDTIME PRN PRN Reason: Insomnia Methotrexate (Methotrexate Sodium 2.5 Mg Tablet) 10 mg PO SA [facility] Methylprednisolone Sodium Succinate (Methylprednisolone Sod Succ 40 Mg/Ml Vial) 40 mg IVPUSH Q8H [facility] Last Admin: 06/14/21 05:41 Dose: 40 mg Documented by: RAFA Morphine Sulfate (Morphine Sulfate 2 Mg/Ml Cartridge) 1 mg IVPUSH Q4H PRN; Protocol PRN Reason: pain/SOB Last Admin: 06/14/21 11:22 Dose: 1 mg Documented by: JOCELINE Patient Own Medication (Linzess 145 Mcg Capsule) 2 each PO BEDTIME [facility] Last Admin: 06/13/21 20:36 Dose: 2 each Documented by: RAFA Patient Own Medication ( Anoro Ellipta 62.5-25 Mcg Inhaler) 1 each INHALE RDAILY [facility] Last Admin: 06/14/21 10:42 Dose: 1 each Documented by: JOCELINE Omeprazole (Omeprazole 40 Mg Capsule.Dr) 40 mg PO BIDWM [facility] Pregabalin (Pregabalin 150 Mg Capsule) 150 mg PO BID [facility] Last Admin: 06/14/21 09:39 Dose: 150 mg Documented by: NELLY Senna (Sennosides 8.6 Mg Tablet) 17.2 mg PO BEDTIME PRN PRN Reason: Constipation Sodium Chloride (0.9 % Sodium Chloride Flush 3 Ml Syringe) 3 ml IVFLUSH QSHIFT [facility] Last Admin: 06/14/21 09:38 Dose: 3 ml Documented by: NELLY Sodium Chloride (0.9 % Sodium Chloride Flush 3 Ml Syringe) [facility] Last Admin: 06/14/21 09:39 Dose: 3 ml Documented by: NELLY Zolpidem Tartrate (Zolpidem Tartrate 5 Mg Tablet) 5 mg PO BEDTIME PRN PRN Reason: Insomnia Last Admin: 06/12/21 21:29 Dose: 5 mg Documented by: RAFA Labs CBC & Chem 7: 06/14/21 06:23 06/14/21 06:23 Labs: Laboratory Results - last 24 hr 06/14/21 06/14/21 06/14/21 06:23 06:23 06:23 MCV 75.0 L MCH 20.6 L MCHC 27.5 L RDW 28.5 H Plt Count 309 MPV 10.1 Absolute Nucleated RBC 0.000 Nucleated RBC % (auto) 0.0 PT 12.9 INR 1.1 Estim Creat Clear Calc 57.1 Estimated GFR > 60 Assessment and Plan (1) Pneumonia: Status: Acute (2) COPD exacerbation: Status: Acute Assessment and Plan: 76-year-old female with a past medical history of rheumatoid arthritis, tobacco dependence, vertebral compression fracture, chronic back pain, iron deficiency anemia, history of recurrent UTIs, history of diastolic heart failure, COPD, ILD, chronic respiratory failure on 4 L of home oxygen, history of left lower extremity DVT on Eliquis; presented to the hospital with a chief complaint of shortness of breath.? 1.Acute hypoxic respiratory failure:?In the setting of COPD exacerbation/aspiration pneumonia.? still Wheezing and oxygen demand going up, added chest x-ray and VBG -continue suplemental oxygen, Neb, steroid 2.Aspiration pneumonia as evident on CT, has been on Vanco and Danielle, GRECIA Vanco. 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 Attempted to transfered to [facility] but none will take. continue asa , going for angiogram , vascular recommended to hold off IV heparin, if angiogram seems fine then patient is to be started on p.o. Eliquis. 3.History of rheumatoid arthritis: Methotreaxate. 4.History of chronic back pain/vertebral compression fractures:? Pain control. 5.History of DVT: as above in Subclavian artery thrombus? section. 6.History of dysphagia: Patient was on pureed diet.? speech eval-Diet be DOWNGRADED to PUREED (NDD1) w/ HONEY thick liquids, pills CRUSHED in PUREE. Quality Stroke Does the patient have a stroke diagnosis?: No VTE Prior VTE?: Yes VTE Risk Level:: Medical - moderate - high VTE Device Contraindication: Treatment Not Indicated VTE Drug Contraindication: N/A - Med Ordered
--- NOTE | 2021-06-14 13:23 | P.PNVS_ITS ---
Subjective Subjective Date of Service: 06/14/21 Patient reports: no new complaints and feels better Interval history: 76-year-old postop day 1 status post endovascular intervention with left subclavian stenting. She appears to be doing extremely well postprocedure. She states her hand feels warmer and the pain has significantly decreased. She continues to have an ulcer in the digits. In no issues with her groin. She is now for postprocedure follow-up. Physical Exam Vital Signs: Vital Signs: Last Vital Signs Temp 97.7 F 06/14/21 11:34 Pulse 80 06/14/21 11:34 Resp 18 06/14/21 08:37 BP 101/80 06/14/21 11:34 Pulse Ox 93 06/14/21 11:58 Oxygen Flow Rate 3 06/10/21 18:25 BMI result Body Mass Index 21.2 Const: General: cooperative, healthy appearing and comfortable Gurjit entation/consciousness: oriented to person, oriented to place and oriented to time HENMT: Head: Yes normal to inspection Neck: Neck: Yes normal visual inspection Carotids: no bruits Chest: Chest palpation & inspection: normal inspection of the chest Resp: Effort & Inspection: normal respiratory effort and able to speak in complete sentences Auscultation: clear to auscultation bilaterally, no crackles, no rales, no rhonchi and no wheezes Cardio: Rate: regular rate Rhythm: regular rhythm Heart sounds: S1 no rmal heart sound present and S2 normal heart sound present Bruits: no carotid bruits Peripheral pulses: Peripheral pulses 2+ throughout GI: Inspection: Yes normal to inspection Skin: Other: Wounds: wounds noted Hair: normal Neuro: General: oriented to person, oriented to place and oriented to time Cranial nerves: Yes CN's II-XII intact bilaterally and Yes Normal hearing present Cognition (Neuro): normal cognition Motor exam (neuro): 5/5 motor strength present throughout Extrem: Other: venous exam: No significant superficial varicosities or spider telangiectasias, minimal edema General: No clubbing, No cyanosis and No edema Psych: Appearance: grossly normal Mental Status: mental status grossly normal Speech and movement: Normal speech and movement present Progress Note: A&P Assessment and plan (1) Subclavian artery thrombosis: Status: Acute Assessment and Plan: In short patient is status post endovascular stent. She is doing well postprocedure. She is stable from my perspective for discharge. She is being maintained on anticoagulation of Eliquis due to her DVT. She can remain on that. No medication changes from my perspective. Upon discharge she can follow up with me in approximately 2 weeks duration. Thank you for allowing us to assist in her care. If there are any questions or concerns please do not hesitate to contact us. Fall Risk Details Current Medications: Current Medications Acetaminophen (Acetaminophen 325 Mg Tablet) 650 mg PO Q6H PRN PRN Reason: Pain, Mild (Pain Scale 1-3) Last Admin: 06/13/21 16:38 Dose: 650 mg Documented by: Albuterol Sulfate (Albuterol Sulfate (0.083%) 2.5 Mg/3 Ml Vial.Neb) 2.5 mg IN [place] Q2H PRN PRN Reason: Shortness of Breath/Wheezing Albuterol/Ipratropium (Albuterol/Iprat 2.5/0.5mg 3 Ml Ampul.Neb) 3 ml INHALE RQ4H WHILE AWAKE [facility] Last Admin: 06/14/21 12:37 Dose: Not Given Documented by: Apixaban (Apixaban 5 Mg Tablet) 5 mg PO BID [facility] Last Admin: 06/14/21 09:39 Dose: 5 mg Documented by: Aspirin (Aspirin 81 Mg Tab.Chew) 81 mg PO DAILY [facility] Last Admin: 06/14/21 09:39 Dose: 81 mg Documented by: Bisacodyl (Bisacodyl 5 Mg Tablet.Dr) 10 mg PO BEDTIME [facility] Last Admin: 06/13/21 20:34 Dose: 10 mg Documented by: Calcium Carbonate/Cholecalciferol (Calcium + Vitamin D 250 Mg Tablet) 500 mg PO DAILY [facility] Last Admin: 06/14/21 09:39 Dose: 500 mg Documented by: Cyanocobalamin (Cyanocobalamin (Vitamin B-12) 1,000 Mcg Tablet) 1,000 mcg PO BEDTIME [facility] Last Admin: 06/13/21 20:34 Dose: 1,000 mcg Documented by: Docusate Sodium (Docusate Sodium 100 Mg Capsule) 100 mg PO BID [facility] Last Admin: 06/14/21 09:39 Dose: 100 mg Documented by: Folic Acid (Folic Acid 1 Mg Tablet) 1 mg PO BID [facility] Last Admin: 06/14/21 09:39 Dose: 1 mg Documented by: Piperacillin Sod/Tazobactam (Sod 3.375 gm/ Sodium Chloride) 50 mls @ 100 mls/hr IV Q6H [facility] Last Infusion: 06/14/21 11:48 Dose: Infused Documented by: Lorazepam (Lorazepam 1 Mg Tablet) 1 mg PO DAILY PRN PRN Reason: Anxiety Last Admin: 06/14/21 11:21 Dose: 1 mg Documented by: Melatonin (Melatonin 3 Mg Tablet) 6 mg PO BEDTIME PRN PRN Reason: Insomnia Methotrexate (Methotrexate Sodium 2.5 Mg Tablet) 10 mg PO SA [facility] Methylprednisolone Sodium Succinate (Methylprednisolone Sod Succ 40 Mg/Ml Vial) 40 mg IVPUSH Q8H [facility] Last Admin: 06/14/21 05:41 Dose: 40 mg Documented by: Morphine Sulfate (Morphine Sulfate 2 Mg/Ml Cartridge) 1 mg IVPUSH Q4H PRN; Protocol PRN Reason: pain/SOB Last Admin: 06/14/21 11:22 Dose: 1 mg Documented by: Patient Own Medication (Linzess 145 Mcg Capsule) 2 each PO BEDTIME [facility] Last Admin: 06/13/21 20:36 Dose: 2 each Documented by: Patient Own Medication ( Anoro Ellipta 62.5-25 Mcg Inhaler) 1 each INHALE RDAILY [facility] Last Admin: 06/14/21 10:42 Dose: 1 each Documented by: Omeprazole (Omeprazole 40 Mg Capsule.Dr) 40 mg PO BIDWM [facility] Pregabalin (Pregabalin 150 Mg Capsule) 150 mg PO BID [facility] Last Admin: 06/14/21 09:39 Dose: 150 mg Documented by: Senna (Sennosides 8.6 Mg Tablet) 17.2 mg PO BEDTIME PRN PRN Reason: Constipation Sodium Chloride (0.9 % Sodium Chloride Flush 3 Ml Syringe) 3 ml IVFLUSH QSHIFT [facility] Last Admin: 06/14/21 09:38 Dose: 3 ml Documented by: Sodium Chloride (0.9 % Sodium Chloride Flush 3 Ml Syringe) [facility] Last Admin: 06/14/21 09:39 Dose: 3 ml Documented by: Zolpidem Tartrate (Zolpidem Tartrate 5 Mg Tablet) 5 mg PO BEDTIME PRN PRN Reason: Insomnia Last Admin: 06/12/21 21:29 Dose: 5 mg Documented by: Time Spent With Patient Time: Total time spent is greater than 50% in coordination of care (as documented) at patient's floor/unit and/or counseling patient: Time with patient: 15 - 24 minutes Procedures Date of Service Date of Service: 06/14/21 Quality Stroke Does the patient have a stroke diagnosis?: No VTE Prior VTE?: Yes VTE Risk Level:: Medical - moderate - high VTE Device Contraindication: Treatment Not Indicated VTE Drug Contraindication: N/A - Med Ordered
[2021-06-14 13:47] LABS: VBG Base Excess 6.8 mmol/L; VBG HCO3 34 mmol/L (22-26); VBG pCO2 60 mmHg; VBG pH 7.35 (7.32-7.43); VBG pO2 42 mmHg
[2021-06-14 13:47] LABS: Venous Blood Gas Refer to POC result
--- NOTE | 2021-06-14 15:52 | MHC.CM.PN ---
EMR REVIEWED, PT ASKING TO D/C TO [facility] TODAY AT 11AM HOWEVER PT WAS STILL ON 8L OC VIA NC AND NOT STABLE FOR D/C, PT EVAL WILL BE COMPLETED AND PLAN FOR STR ONCE CLEARED FOR D/C.
[2021-06-14] MEDS: Omeprazole 40 MG CAPSULE.DR PO (17:02)
--- NOTE | 2021-06-14 18:05 | PM.IMHP ---
History of Present Illness Date of Service: 06/14/21 Attending physician on admission: Rolando Diaz Chief Complaint: CVA [facility] Medical History Chronic respiratory failure with hypoxia Compression fracture of T9 vertebra COPD (chronic obstructive pulmonary disease) DVT (deep venous thrombosis) Hiatal hernia History of diverticulitis History of treatment for tuberculosis Interstitial lung disease Left rib fracture Opioid abuse Rash Rib pain on left side Rib pain on right side Surgical History H/O colonoscopy H/O esophagogastroduodenoscopy Social History Household Members: None Housing: House Do you presently have visiting nurse or other home services: No Alcohol intake: unknown Patient Tobacco Use Status: Current everyday Tobacco user Tobacco use type: Cigarette Use of substances other than those prescribed or required for medical reasons: No Currently Displaying Signs/Symptoms of Drug Intoxication Withdrawal: No Have you been hit, kicked, punched, or otherwise hurt by someone within the past year? If so, by whom?: No Do you feel safe in your current relationship?: No Current Relationship Is there a partner from a previous relationship who is making you feel unsafe now?: No Are you made to feel afraid or neglected: No Advance Directives: No Advance Directives Information Provided: Yes Do you have thoughts of harming others: None Do you have a plan to hurt others: No Plan Recently lost weight without trying: No Nutrition Risks: No Nutritional Risk Patient : No : No Poor oral hygiene: No service: No Current occupational status: retired [employer] Allergies Allergy/AdvReac Type Severity Reaction Status Date / Time loratadine [From CLARITIN] Allergy Unknown MOUTH SORE Verified 06/13/21 07:09 Active Medications: Current Medications Acetaminophen (Acetaminophen 325 Mg Tablet) 650 mg PO Q6H PRN PRN Reason: Pain, Mild (Pain Scale 1-3) Last Admin: 06/13/21 16:38 Dose: 650 mg Documented by: Albuterol Sulfate (Albuterol Sulfate (0.083%) 2.5 Mg/3 Ml Vial.Neb) 2.5 mg INHALE Q2H PRN PRN Reason: Shortness of Breath/Wheezing Albuterol/Ipratropium (Albuterol/Iprat 2.5/0.5mg 3 Ml Ampul.Neb) 3 ml INHALE RQ4H WHILE AWAKE [facility] Last Admin: 06/14/21 15:40 Dose: 3 ml Documented by: Apixaban (Apixaban 5 Mg Tablet) 5 mg PO BID [facility] Last Admin: 06/14/21 09:39 Dose: 5 mg Documented by: Aspirin (Aspirin 81 Mg Tab.Chew) 81 mg PO DAILY [facility] Last Admin: 06/14/21 09:39 Dose: 81 mg Documented by: Bisacodyl (Bisacodyl 5 Mg Tablet.Dr) 10 mg PO BEDTIME [facility] Last Admin: 06/13/21 20:34 Dose: 10 mg Documented by: Calcium Carbonate/Cholecalciferol (Calcium + Vitamin D 250 Mg Tablet) 500 mg PO DAILY [facility] Last Admin: 06/14/21 09:39 Dose: 500 mg Documented by: Cyanocobalamin (Cyanocobalamin (Vitamin B-12) 1,000 Mcg Tablet) 1,000 mcg PO BEDTIME [facility] Last Admin: 06/13/21 20:34 Dose: 1,000 mcg Documented by: Docusate Sodium (Docusate Sodium 100 Mg Capsule) 100 mg PO BID [facility] Last Admin: 06/14/21 09:39 Dose: 100 mg Documented by: Folic Acid (Folic Acid 1 Mg Tablet) 1 mg PO BID [facility] Last Admin: 06/14/21 09:39 Dose: 1 mg Documented by: Piperacillin Sod/Tazobactam (Sod 3.375 gm/ Sodium Chloride) 50 mls @ 100 mls/hr IV Q6H [facility] Last Infusion: 06/14/21 17:34 Dose: Infused Documented by: Lorazepam (Lorazepam 1 Mg Tablet) 1 mg PO DAILY PRN PRN Reason: Anxiety Last Admin: 06/14/21 11:21 Dose: 1 mg Documented by: Melatonin (Melatonin 3 Mg Tablet) 6 mg PO BEDTIME PRN PRN Reason: Insomnia Methotrexate (Methotrexate Sodium 2.5 Mg Tablet) 10 mg PO SA [facility] Methylprednisolone Sodium Succinate (Methylprednisolone Sod Succ 40 Mg/Ml Vial) 40 mg IVPUSH Q6H [facility] Morphine Sulfate (Morphine Sulfate 2 Mg/Ml Cartridge) 1 mg IVPUSH Q4H PRN; Protocol PRN Reason: pain/SOB Last Admin: 06/14/21 17:03 Dose: 1 mg Documented by: Patient Own Medication (Linzess 145 Mcg Capsule) 2 each PO BEDTIME [facility] Last Admin: 06/13/21 20:36 Dose: 2 each Documented by: Patient Own Medication ( Anoro Ellipta 62.5-25 Mcg Inhaler) 1 each INHALE RDAILY [facility] Last Admin: 06/14/21 10:42 Dose: 1 each Documented by: Omeprazole (Omeprazole 40 Mg Capsule.) 40 mg PO BIDWM [facility] Last Admin: 06/14/21 17:02 Dose: 40 mg Documented by: Pregabalin (Pregabalin 150 Mg Capsule) 150 mg PO BID [facility] Last Admin: 06/14/21 09:39 Dose: 150 mg Documented by: Senna (Sennosides 8.6 Mg Tablet) 17.2 mg PO BEDTIME PRN PRN Reason: Constipation Sodium Chloride (0.9 % Sodium Chloride Flush 3 Ml Syringe) 3 ml IVFLUSH QSMNFT [facility] Last Admin: 06/14/21 17:02 Dose: 3 ml Documented by: Sodium Chloride (0.9 % Sodium Chloride Flush 3 Ml Syringe) 3 ml IVFLUSH [facility] Last Admin: 06/14/21 17:03 Dose: Not Given Documented by: Zolpidem Tartrate (Zolpidem Tartrate 5 Mg Tablet) 5 mg PO BEDTIME PRN PRN Reason: Insomnia Last Admin: 06/12/21 21:29 Dose: 5 mg Documented by: Home Medications Medication Instructions Recorded Confirmed Last Taken Type cyanocobalamin (vitamin B-12) 1,000 mcg PO BEDTIME 03/31/21 06/11/21 05/17/21 History 1,000 mcg tablet docusate sodium 100 mg capsule 100 mg PO BID 03/31/21 06/11/21 05/17/21 History folic acid 1 mg tablet 1 mg PO BID 03/31/21 06/11/21 05/17/21 History methotrexate sodium 2.5 mg tablet 10 mg PO SA@0900 03/31/21 06/11/21 05/13/21 History omeprazole 40 mg capsule,delayed 40 mg PO DAILY@0630 03/31/21 06/11/21 05/17/21 History release oxycodone 5 mg tablet 5 mg PO TID PRN 03/31/21 06/11/21 03/30/21 History umeclidinium 62.5 mcg-vilanterol 1 inh INHALATION DAILY 03/31/21 06/11/21 05/17/21 History 25 mcg/actuation powdr for inhalation (Anoro Ellipta) linaclotide 290 mcg capsule 290 mcg PO BEDTIME 05/18/21 06/11/21 05/17/21 History (Linzess) pregabalin 150 mg capsule 1 cap PO TID 05/18/21 06/11/21 05/17/21 History risedronate 150 mg tablet 1 tab PO QMONTH 05/18/21 06/11/21 05/15/21 History zolpidem 5 mg tablet 1 tab PO BEDTIME PRN 05/18/21 06/11/21 Unknown History lorazepam 1 mg tablet 1 tab PO DAILY PRN 06/11/21 06/11/21 Unknown History prednisone 20 mg tablet 10 mg PO DAILY 06/11/21 06/11/21 Unknown History Physical Exam Vital Signs and Narrative: Vital Signs: Last Vital Signs Temp 98.6 F 06/14/21 15:39 Pulse 102 H 06/14/21 15:41 Resp 20 06/14/21 15:41 BP 128/79 06/14/21 15:39 Pulse Ox 90 L 06/14/21 15:39 Oxygen Flow Rate 3 06/10/21 18:25 BMI result Body Mass Index 21.2 Results Labs CBC and Chem 7: 06/14/21 06:23 06/14/21 06:23 Labs: Laboratory Results - last 24 hr 06/14/21 06/14/21 06/14/21 06:23 06:23 06:23 MCV 75.0 L MCH 20.6 L MCHC 27.5 L RDW 28.5 H Plt Count 309 MPV 10.1 Absolute Nucleated RBC 0.000 Nucleated RBC % (auto) 0.0 PT 12.9 INR 1.1 VBG pH VBG pCO2 VBG pO2 VBG HCO3 VBG O2 Saturation VBG Base Excess Estim Creat Clear Calc 57.1 Estimated GFR > 60 06/14/21 13:40 MCV MCH MCHC RDW Plt Count MPV Absolute Nucleated RBC Nucleated RBC % (auto) PT INR VBG pH 7.35 VBG pCO2 60 VBG pO2 42 VBG HCO3 34 H VBG O2 Saturation 61.0 VBG Base Excess 6.8 Estim Creat Clear Calc Estimated GFR Imaging Radiologist's Impressions: Impressions Chest X-Ray 06/14/21 14:39 IMPRESSION: No significantly changed since 06/10/2021. Quality Stroke Does the patient have a stroke diagnosis?: No VTE Prior VTE?: Yes VTE Risk Level:: Medical - moderate - high VTE Device Contraindication: Treatment Not Indicated VTE Drug Contraindication: N/A - Med Ordered
--- NOTE | 2021-06-14 18:10 | MHC.SL.SWA ---
Speech Pathologist Impression: Oralpharyngeal Dysphagia Risk of Aspiration Due to: History of Pneumonia Reduced Cognition Dysphasia Diet Status: No Change Liquid Consistency and Strategies for Safe Swallow: Liquid Intake Recommendation: Honey Thick Liquid Intake Strategies: No Straws Liquids by Teaspoon Only Solid Food Consistency: Dietary Recommendations: Pureed (NDD1) Additional Modifications to Solid Foods: Patient was recommended by TUBE WRAPPER to continue PUREED (NDD1) solids and HONEY THICK liquids per MBSS recommendations. Patient displays very limited insight to her dysphagia despite extensive education RE: MBSS results, rationale for these recommendations, and risks of aspiration.. She expresses significant aversion to these consistencies and refuses to eat/drink them. Diet order has not been changed by TUBE WRAPPER as patient refuses to eat modified consistencies. Message sent to MD, RN, RD informing of patient's refusal to comply to these recommendations. Recommend rigorous oral care routine (at least, before each meal) and elevate head of bed at least 30 degrees to reduce risk of microaspiration. TUBE WRAPPER will continue to follow. Oral Medication Intake: Crushed with Puree Compensatory Strategies and Precautions to be Taken for Safe Swallow: Sitting Upright (90 deg) No Straw Small Bites and Sips Alternate Liquids/Solids Rate of Ingestion Change Supervision While Eating and Drinking for Safe Swallow: Total Supervision (1:1) Swallowing Recommended Treatments: Compens. Strategy Educat. Recommendation for Speech: Inpatient Speech Therapy Internist Clinican/Clinical Fellow: No Supervisory Statement: I have reviewed and agree with the student/clinical fellow's documentation: N/A Speech Language Pathologist: Anna Silver M.A., CCC-TUBE WRAPPER
--- NOTE | 2021-06-14 20:32 | MHC.CARE ---
Addendum entered by Sandra Rocha [facility] 06/14/21 20:35: CARE Team feels pt could benefit from a psych consult for her anxiety. Original Note: CARE Team met with pt to provide pt with resources for her anxiety. Pt was interested in referral to a therapist. CARE Team referred pt to [facility].
[2021-06-14] MEDS: Magnesium Sulfate/D5W 1 GM/100 ML PIGGYBACK IV (20:33)
[2021-06-14] MEDS: bisacodyL 5 MG TABLET.DR 10 MG PO (20:35)
[2021-06-14] MEDS: Cyanocobalamin (Vitamin B-12) 1,000 MCG TABLET 1000 MCG PO (20:36)
--- NOTE | 2021-06-14 20:54 | PM.EVENT ---
Event Note Date of Service: 06/14/21 Event Note: evaluated by care team, recommend psych consult for med eval. psych consult placed
[2021-06-15] VITALS (9 sets, daily range): BP systolic 132–142; BP diastolic 65–85; PULSE 88–119; RESP 16–20; TEMP 36.6–36.9; O2SAT 84–96
[2021-06-15] MEDS: Morphine Sulfate 2 MG/ML CARTRIDGE 1 MG IVPUSH ×3 (00:09→23:35)
[2021-06-15] MEDS: Piperacillin Sodium/Tazobactam 3.375 GM in 0.9 % Sodium Chloride 50 ML IV ×3 (00:10→13:57)
[2021-06-15] MEDS: Melatonin 3 MG TABLET 6 MG PO (00:10)
[2021-06-15] MEDS: 0.9 % Sodium Chloride Flush 3 ML SYRINGE IVFLUSH ×8 (00:20→23:41)
[2021-06-15] MEDS: methylPREDNISolone Sod Succ 40 MG/ML VIAL IVPUSH ×4 (02:57→19:58)
[2021-06-15 07:05] LABS: Creatinine Clr Calc Pharmacy 51.3; Estimated Glomerular Filt Rate > 60
[2021-06-15] MEDS: Omeprazole 40 MG CAPSULE.DR PO ×2 (07:45→17:41)
[2021-06-15] MEDS: Calcium + Vitamin D 250 MG TABLET 500 MG PO (07:45)
[2021-06-15] MEDS: Folic Acid 1 MG TABLET PO ×2 (07:45→19:59)
[2021-06-15] MEDS: Apixaban 5 MG TABLET PO ×2 (07:45→19:59)
[2021-06-15] MEDS: Pregabalin 150 MG CAPSULE PO ×2 (07:45→19:58)
[2021-06-15] MEDS: Docusate Sodium 100 MG CAPSULE PO ×2 (07:45→19:58)
[2021-06-15] MEDS: Aspirin 81 MG TAB.CHEW PO (07:45)
[2021-06-15] MEDS: LORazepam 1 MG TABLET PO (07:46)
[2021-06-15] MEDS: Albuterol/Iprat 2.5/0.5MG 3 ML AMPUL.NEB INHALE ×4 (07:57→20:13)
[2021-06-15 08:43] LABS: Venous Blood Gas Refer to POC result
[2021-06-15 08:44] LABS: VBG Base Excess 8.5 mmol/L; VBG HCO3 33 mmol/L (22-26); VBG pCO2 44 mmHg; VBG pH 7.47 (7.32-7.43); VBG pO2 64 mmHg
--- NOTE | 2021-06-15 12:59 | HO.PM.IMPN ---
Subjective Subjective Date of Service: 06/15/21 Interval History: copd excerebation, pna Review of Systems short of breath, oxygen demand still 6-7 liters ?denies any chest pain or abdominal pain or cough or phlegm. Physical Exam Vital Signs: Vital Signs: Last Vital Signs Temp 97.8 F 06/15/21 11:29 Pulse 116 H 06/15/21 11:29 Resp 18 06/15/21 11:29 BP 132/76 06/15/21 11:29 Pulse Ox 84 L 06/15/21 11:29 Oxygen Flow Rate 3 06/10/21 18:25 BMI result Body Mass Index 21.2 General: AO X 3, no acute distress Resp:?has b/l wheezin CVS: S1,S2,RRR GI: +BS, NT, no distention Skin: No rash Neuro:? motor grossly intact Psych: appropriate affect ? Objective Data Active Medications Acetaminophen (Acetaminophen 325 Mg Tablet) 650 mg PO Q6H PRN PRN Reason: Pain, Mild (Pain Scale 1-3) Last Admin: 06/13/21 16:38 Dose: 650 mg Documented by: ALIZE Albuterol Sulfate (Albuterol Sulfate (0.083%) 2.5 Mg/3 Ml Vial.Neb) 2.5 mg INHALE Q2H PRN PRN Reason: Shortness of Breath/Wheezing Albuterol/Ipratropium (Albuterol/Iprat 2.5/0.5mg 3 Ml Ampul.Neb) 3 ml INHALE RQ4H WHILE AWAKE [facility] Last Admin: 06/15/21 11:11 Dose: 3 ml Documented by: ALEXANDER Apixaban (Apixaban 5 Mg Tablet) 5 mg PO BID [facility] Last Admin: 06/15/21 07:45 Dose: 5 mg Documented by: RODRIGO Aspirin (Aspirin 81 Mg Tab.Chew) 81 mg PO DAILY [facility] Last Admin: 06/15/21 07:45 Dose: 81 mg Documented by: RODRIGO Bisacodyl (Bisacodyl 5 Mg Tablet.Dr) 10 mg PO BEDTIME [facility] Last Admin: 06/14/21 20:35 Dose: 10 mg Documented by: RODRIGO Calcium Carbonate/Cholecalciferol (Calcium + Vitamin D 250 Mg Tablet) 500 mg PO DAILY [facility] Last Admin: 06/15/21 07:45 Dose: 500 mg Documented by: RODRIGO Cyanocobalamin (Cyanocobalamin (Vitamin B-12) 1,000 Mcg Tablet) 1,000 mcg PO BEDTIME [facility] Last Admin: 06/14/21 20:36 Dose: 1,000 mcg Documented by: RODRIGO Docusate Sodium (Docusate Sodium 100 Mg Capsule) 100 mg PO BID [facility] Last Admin: 06/15/21 07:45 Dose: 100 mg Documented by: RODRIGO Fluticasone Propionate (Fluticasone Propionate Nasal 16 Gm [place]) 1 spray NOSTRIL-B DAILY [facility] Folic Acid (Folic Acid 1 Mg Tablet) 1 mg PO BID [facility] Last Admin: 06/15/21 07:45 Dose: 1 mg Documented by: RODRIGO Piperacillin Sod/Tazobactam (Sod 3.375 gm/ Sodium Chloride) 50 mls @ 100 mls/hr IV Q6H [facility] Last Infusion: 06/15/21 05:46 Dose: 100 mls/hr Documented by: RODRIGO Loratadine (Loratadine 10 Mg Tablet) 10 mg PO DAILY [facility] Lorazepam (Lorazepam 1 Mg Tablet) 1 mg PO BID PRN PRN Reason: Anxiety Melatonin (Melatonin 3 Mg Tablet) 6 mg PO BEDTIME PRN PRN Reason: Insomnia Last Admin: 06/15/21 00:10 Dose: 6 mg Documented by: RODRIGO Methotrexate (Methotrexate Sodium 2.5 Mg Tablet) 10 mg PO SA [facility] Methylprednisolone Sodium Succinate (Methylprednisolone Sod Succ 40 Mg/Ml Vial) 40 mg IVPUSH Q6H [facility] Last Admin: 06/15/21 07:44 Dose: 40 mg Documented by: RODRIGO Morphine Sulfate (Morphine Sulfate 2 Mg/Ml Cartridge) 1 mg IVPUSH Q4H PRN; Protocol PRN Reason: pain/SOB Last Admin: 06/15/21 00:09 Dose: 1 mg Documented by: RODRIGO Patient Own Medication (Linzess 145 Mcg Capsule) 2 each PO BEDTIME [facility] Last Admin: 06/14/21 20:36 Dose: 2 each Documented by: RODRIGO Patient Own Medication ( Anoro Ellipta 62.5-25 Mcg Inhaler) 1 each INHALE RDAILY [facility] Last Admin: 06/14/21 10:42 Dose: 1 each Documented by: JOCELNIE Omeprazole (Omeprazole 40 Mg Capsule.) 40 mg PO BIDWM [facility] Last Admin: 06/15/21 07:45 Dose: 40 mg Documented by: RODRIGO Pregabalin (Pregabalin 150 Mg Capsule) 150 mg PO BID [facility] Last Admin: 06/15/21 07:45 Dose: 150 mg Documented by: RODRIGO Senna (Sennosides 8.6 Mg Tablet) 17.2 mg PO BEDTIME PRN PRN Reason: Constipation Sodium Chloride (0.9 % Sodium Chloride Flush 3 Ml Syringe) 3 ml IVFLUSH [facility] Last Admin: 06/15/21 07:55 Dose: 3 ml Documented by: RODRIGO Sodium Chloride (0.9 % Sodium Chloride Flush 3 Ml Syringe) 3 ml IVFLUSH [facility] Last Admin: 06/15/21 07:13 Dose: 3 ml Documented by: RODRIGO Zolpidem Tartrate (Zolpidem Tartrate 5 Mg Tablet) 5 mg PO BEDTIME PRN PRN Reason: Insomnia Last Admin: 06/12/21 21:29 Dose: 5 mg Documented by: RAFA Labs CBC & Chem 7: 06/14/21 06:23 06/15/21 06:08 Labs: Laboratory Results - last 24 hr 06/14/21 06/15/21 06/15/21 13:40 06:08 08:37 VBG pH 7.35 7.47 H VBG pCO2 60 44 VBG pO2 42 64 VBG HCO3 34 H 33 H VBG O2 Saturation 61.0 91.0 VBG Base Excess 6.8 8.5 Estim Creat Clear Calc 51.3 Estimated GFR > 60 Assessment and Plan (1) Recurrent aspiration pneumonia: Status: Acute (2) Acute and chronic respiratory failure with hypoxia: Status: Acute Assessment and Plan: 76-year-old female with a past medical history of rheumatoid arthritis, tobacco dependence, vertebral compression fracture, chronic back pain, iron deficiency anemia, history of recurrent UTIs, history of diastolic heart failure, COPD, ILD, chronic respiratory failure on 4 L of home oxygen, history of left lower extremity DVT on Eliquis; presented to the hospital with a chief complaint of shortness of breath.? 1.Acute hypoxic respiratory failure:?In the setting of COPD exacerbation/aspiration pneumonia.? still ? 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 Attempted to transfered to [facility] hospitals but none will take. continue asa , going for angiogram , vascular recommended to hold off IV heparin, if angiogram seems fine then patient is to be started on p.o. Eliquis. 3.History of rheumatoid arthritis: Methotreaxate. 4.History of chronic back pain/vertebral compression fractures:? Pain control. 5.History of DVT: as above in Subclavian artery thrombus? section. 6.History of dysphagia: Patient was on pureed diet.? speech eval-Diet be DOWNGRADED to PUREED (NDD1) w/ HONEY thick liquids, pills CRUSHED in PUREE. pt -recomended pulm rehab . Quality Stroke Does the patient have a stroke diagnosis?: No VTE Prior VTE?: Yes VTE Risk Level:: Medical - moderate - high VTE Device Contraindication: Treatment Not Indicated VTE Drug Contraindication: N/A - Med Ordered
[2021-06-15] MEDS: Loratadine 10 MG TABLET PO (13:57)
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
[2021-06-15] MEDS: Fluticasone Propionate Nasal 16 GM SPRAY 1 SPRAY NOSTRIL-B (14:32)
--- NOTE | 2021-06-15 15:53 | PM.CNPUL ---
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 Patient has had CT angiogram the demonstrated no pulmonary emboli, however significant underlying emphysema and large hiatal hernia, also subclavian artery thrombus. Patient has been evaluated by Hematology and vascular surgery. Terms of her pulmonary status she has been treated for COPD exacerbation and aspiration pneumonia. Now she continues to require 5-6 L of continues of supplemental oxygen. She denies cough aspirating production. Patient states that she does not feel dyspnea and is at her baseline. Review of Systems Constitutional: Constitutional: Denies daytime sleepiness, Denies excessive sweating, Denies fatigue, Denies fever(s), Denies lethargy, Denies malaise, Denies night sweats, Denies snoring and Denies weight loss Eyes: Eyes: Denies blurry vision and Denies itchy eyes ENT: Denies nasal congestion, Denies post nasal drip, Denies sinus pain, Denies sinus pressure and Denies other ( Thrush) Cardiovascular: Cardiovascular: Denies chest pain, Denies pedal edema, Denies dyspnea, Denies orthopnea and Denies paroxysmal nocturnal dyspnea Respiratory: Respiratory: Denies cough, Denies hemoptysis, Denies excessive phlegm production, Denies dyspnea, Denies snoring and Denies wheezing Gastrointestinal: Gastrointestinal: Denies abdominal pain and Denies heartburn Musculoskeletal: Musculoskeletal: Denies myalgias, Denies arthralgias and Denies joint swelling Integumentary/Breasts: Skin/Breast: Denies rash Neurologic: Denies memory loss and Denies seizure-like activity Psychiatric: Psychiatric: Denies abnormal sleep pattern, Denies anxiety and Denies memory loss Endocrine: Endocrine: Denies excessive sweating, Denies fatigue and Denies heat intolerance Hematologic/Lymphatic: Hematologic/Lymphatic: Denies easy bruising Allergic/Immunologic: Allergic/Immunologic: Denies itchy eyes, Denies seasonal rhinorrhea and Denies wheezing PMFSH Past Medical History Medical History (Updated 06/15/21 @ 16:00 by Jaret Fraga MD) Bipolar disorder Chronic idiopathic constipation Chronic respiratory failure with hypoxia Compression fracture of T9 vertebra COPD (chronic obstructive pulmonary disease) DVT (deep venous thrombosis) DVT (deep venous thrombosis) Hiatal hernia Hiatal hernia History of diverticulitis History of treatment for tuberculosis Interstitial lung disease Iron deficiency anemia Left rib fracture Opioid abuse Peripheral neuropathy Rash Rheumatoid arthritis Rib pain on left side Rib pain on right side Surgical History Surgical History H/O colonoscopy H/O esophagogastroduodenoscopy Social History Social History Household Members: None Housing: House Do you presently have visiting nurse or other home services: No Alcohol intake: unknown Patient Tobacco Use Status: Current everyday Tobacco user Tobacco use type: Cigarette Use of substances other than those prescribed or required for medical reasons: No Currently Displaying Signs/Symptoms of Drug Intoxication Withdrawal: No Have you been hit, kicked, punched, or otherwise hurt by someone within the past year? If so, by whom?: No Do you feel safe in your current relationship?: No Current Relationship Is there a partner from a previous relationship who is making you feel unsafe now?: No Are you made to feel afraid or neglected: No Advance Directives: No Advance Directives Information Provided: Yes Do you have thoughts of harming others: None Do you have a plan to hurt others: No Plan Recently lost weight without trying: No Nutrition Risks: No Nutritional Risk Patient : No : No Poor oral hygiene: No service: No Current occupational status: retired [employer] Allergies Allergy/AdvReac Type Severity Reaction Status Date / Time loratadine [From CLARITIN] Allergy Unknown MOUTH SORE Verified 06/13/21 07:09 Active Medications: Current Medications Acetaminophen (Acetaminophen 325 Mg Tablet) 650 mg PO Q6H PRN PRN Reason: Pain, Mild (Pain Scale 1-3) Last Admin: 06/13/21 16:38 Dose: 650 mg Documented by: Albuterol Sulfate (Albuterol Sulfate (0.083%) 2.5 Mg/3 Ml Vial.Neb) 2.5 mg INHALE Q2H PRN PRN Reason: Shortness of Breath/Wheezing Albuterol/Ipratropium (Albuterol/Iprat 2.5/0.5mg 3 Ml Ampul.Neb) 3 ml INHALE RQ4H WHILE AWAKE [facility] Last Admin: 06/15/21 15:31 Dose: 3 ml Documented by: Apixaban (Apixaban 5 Mg Tablet) 5 mg PO BID [facility] Last Admin: 06/15/21 07:45 Dose: 5 mg Documented by: Aspirin (Aspirin 81 Mg Tab.Chew) 81 mg PO DAILY [facility] Last Admin: 06/15/21 07:45 Dose: 81 mg Documented by: Bisacodyl (Bisacodyl 5 Mg Tablet.Dr) 10 mg PO BEDTIME [facility] Last Admin: 06/14/21 20:35 Dose: 10 mg Documented by: Calcium Carbonate/Cholecalciferol (Calcium + Vitamin D 250 Mg Tablet) 500 mg PO DAILY [facility] Last Admin: 06/15/21 07:45 Dose: 500 mg Documented by: Cyanocobalamin (Cyanocobalamin (Vitamin B-12) 1,000 Mcg Tablet) 1,000 mcg PO BEDTIME [facility] Last Admin: 06/14/21 20:36 Dose: 1,000 mcg Documented by: Docusate Sodium (Docusate Sodium 100 Mg Capsule) 100 mg PO BID [facility] Last Admin: 06/15/21 07:45 Dose: 100 mg Documented by: Fluticasone Propionate (Fluticasone Propionate Nasal 16 Gm [place]) 1 spray NOSTRIL-B DAILY [facility] Last Admin: 06/15/21 14:32 Dose: 1 spray Documented by: Folic Acid (Folic Acid 1 Mg Tablet) 1 mg PO BID [facility] Last Admin: 06/15/21 07:45 Dose: 1 mg Documented by: Piperacillin Sod/Tazobactam (Sod 3.375 gm/ Sodium Chloride) 50 mls @ 100 mls/hr IV Q6H [facility] Last Infusion: 06/15/21 14:51 Dose: Infused Documented by: Loratadine (Loratadine 10 Mg Tablet) 10 mg PO DAILY [facility] Last Admin: 06/15/21 13:57 Dose: 10 mg Documented by: Lorazepam (Lorazepam 1 Mg Tablet) 1 mg PO BID PRN PRN Reason: Anxiety Melatonin (Melatonin 3 Mg Tablet) 6 mg PO BEDTIME PRN PRN Reason: Insomnia Last Admin: 06/15/21 00:10 Dose: 6 mg Documented by: Methotrexate (Methotrexate Sodium 2.5 Mg Tablet) 10 mg PO [facility] Methylprednisolone Sodium Succinate (Methylprednisolone Sod Succ 40 Mg/Ml Vial) 40 mg IVPUSH Q6H [facility] Last Admin: 06/15/21 13:57 Dose: 40 mg Documented by: Morphine Sulfate (Morphine Sulfate 2 Mg/Ml Cartridge) 1 mg IVPUSH Q4H PRN; Protocol PRN Reason: pain/SOB Last Admin: 06/15/21 00:09 Dose: 1 mg Documented by: Patient Own Medication (Linzess 145 Mcg Capsule) 2 each PO BEDTIME [facility] Last Admin: 06/14/21 20:36 Dose: 2 each Documented by: Patient Own Medication ( Anoro Ellipta 62.5-25 Mcg Inhaler) 1 each INHALE RDAILY [facility] Last Admin: 06/14/21 10:42 Dose: 1 each Documented by: Omeprazole (Omeprazole 40 Mg Capsule.Dr) 40 mg PO BIDWM [facility] Last Admin: 06/15/21 07:45 Dose: 40 mg Documented by: Pregabalin (Pregabalin 150 Mg Capsule) 150 mg PO BID [facility] Last Admin: 06/15/21 07:45 Dose: 150 mg Documented by: Senna (Sennosides 8.6 Mg Tablet) 17.2 mg PO BEDTIME PRN PRN Reason: Constipation Sodium Chloride (0.9 % Sodium Chloride Flush 3 Ml Syringe) 3 ml IVFLUSH [facility] Last Admin: 06/15/21 07:55 Dose: 3 ml Documented by: Sodium Chloride (0.9 % Sodium Chloride Flush 3 Ml Syringe) 3 ml IVFLUSH [facility] Last Admin: 06/15/21 07:13 Dose: 3 ml Documented by: Zolpidem Tartrate (Zolpidem Tartrate 5 Mg Tablet) 5 mg PO BEDTIME PRN PRN Reason: Insomnia Last Admin: 06/12/21 21:29 Dose: 5 mg Documented by: Home Medications Medication Instructions Recorded Confirmed Last Taken Type cyanocobalamin (vitamin B-12) 1,000 mcg PO BEDTIME 03/31/21 06/11/21 05/17/21 History 1,000 mcg tablet docusate sodium 100 mg capsule 100 mg PO BID 03/31/21 06/11/21 05/17/21 History folic acid 1 mg tablet 1 mg PO BID 03/31/21 06/11/21 05/17/21 History methotrexate sodium 2.5 mg tablet 10 mg PO SA@0900 03/31/21 06/11/21 05/13/21 History omeprazole 40 mg capsule,delayed 40 mg PO DAILY@0630 03/31/21 06/11/21 05/17/21 History release oxycodone 5 mg tablet 5 mg PO TID PRN 03/31/21 06/11/21 03/30/21 History umeclidinium 62.5 mcg-vilanterol 1 inh INHALATION DAILY 03/31/21 06/11/21 05/17/21 History 25 mcg/actuation powdr for inhalation (Anoro Ellipta) linaclotide 290 mcg capsule 290 mcg PO BEDTIME 05/18/21 06/11/21 05/17/21 History (Linzess) pregabalin 150 mg capsule 1 cap PO TID 05/18/21 06/11/21 05/17/21 History risedronate 150 mg tablet 1 tab PO QMONTH 05/18/21 06/11/21 05/15/21 History zolpidem 5 mg tablet 1 tab PO BEDTIME PRN 05/18/21 06/11/21 Unknown History lorazepam 1 mg tablet 1 tab PO DAILY PRN 06/11/21 06/11/21 Unknown History prednisone 20 mg tablet 10 mg PO DAILY 06/11/21 06/11/21 Unknown History Physical Exam Vital Signs: Vital Signs: Last Vital Signs Temp 98.3 F 06/15/21 14:54 Pulse 116 H 06/15/21 15:33 Resp 20 06/15/21 15:33 BP 134/85 06/15/21 14:54 Pulse Ox 93 06/15/21 14:54 Oxygen Flow Rate 3 06/10/21 18:25 BMI result Body Mass Index 21.2 Const: General: no acute distress, alert and awake Eyes: Sclerae: sclerae normal EOM: EOMs intact bilaterally Neck: Neck: Yes no lymphadenopathy, Yes trachea midline and Yes supple Resp: Effort & Inspection: normal respiratory effort and no respiratory distress Auscultation: wheezes (Mild bibasilar, expiratory) Cardio: Rate: regular rate Rhythm: regular rhythm Heart sounds: no gallops, no murmurs and no rubs GI: Palpation (GI): Soft to palpation and Other GI palpation findings present ( Nontender) Auscultation: normal bowel sounds Extrem: General: Yes no pedal edema, No clubbing and No cyanosis Results Laboratory Findings CBC and BMP: 06/14/21 06:23 06/15/21 06:08 ABG, PT/INR, D-dimer: PT/INR, D-dimer PT 12.9 SEC (9.9-13.0) 06/14/21 06:23 INR 1.1 (0.9-1.1) 06/14/21 06:23 Abnormal lab findings: Abnormal Labs 06/10/21 06/10/21 06/10/21 20:04 20:08 20:08 WBC 12.4 H RBC 5.63 H Hgb 11.6 L MCV 72.8 L MCH 20.6 L MCHC 28.3 L RDW 28.8 H Plt Count 425 H Immature Gran % (Auto) 0.6 H Neut % (Auto) 92.1 H Lymph % (Auto) 3.5 L [place] % (Auto) Lymph # (Auto) 0.4 L Abs Immat Gran (auto) 0.07 H Absolute Neuts (auto) 11.4 H PT 13.5 H INR 1.2 H PTT (Heparin Protocol) VBG pH 7.47 H VBG HCO3 21 L Carbon Dioxide Random Glucose Lactic Acid Lactic Acid F/U @ 2Hr Lactic Acid F/U @ 4Hr Alkaline Phosphatase Total Protein Vancomycin Trough 06/10/21 06/10/21 06/11/21 20:08 20:08 00:28 WBC RBC Hgb MCV MCH MCHC RDW Plt Count Immature Gran % (Auto) Neut % (Auto) Lymph % (Auto) [place] % (Auto) Lymph # (Auto) Abs Immat Gran (auto) Absolute Neuts (auto) PT INR PTT (Heparin Protocol) VBG pH VBG HCO3 Carbon Dioxide 20 L Random Glucose Lactic Acid 2.3 H* Lactic Acid F/U @ 2Hr 2.2 H* Lactic Acid F/U @ 4Hr Alkaline Phosphatase 131 H Total Protein 6.3 L Vancomycin Trough 06/11/21 06/11/21 06/11/21 04:02 04:02 04:02 WBC RBC Hgb 10.8 L MCV 73.3 L MCH 20.3 L MCHC 27.8 L RDW 28.3 H Plt Count Immature Gran % (Auto) Neut % (Auto) 93.3 H Lymph % (Auto) 4.6 L [place] % (Auto) 1.6 L Lymph # (Auto) 0.3 L Abs Immat Gran (auto) Absolute Neuts (auto) PT INR PTT (Heparin Protocol) VBG pH VBG HCO3 Carbon Dioxide Random Glucose 202 H Lactic Acid Lactic Acid F/U @ 2Hr Lactic Acid F/U @ 4Hr 3.1 H* Alkaline Phosphatase Total Protein Vancomycin Trough 06/11/21 06/11/21 06/12/21 13:12 19:41 09:33 WBC RBC Hgb MCV MCH MCHC RDW Plt Count Immature Gran % (Auto) Neut % (Auto) Lymph % (Auto) [place] % (Auto) Lymph # (Auto) Abs Immat Gran (auto) Absolute Neuts (auto) PT INR PTT (Heparin Protocol) 43.7 L 41.8 L 78.2 H VBG pH VBG HCO3 Carbon Dioxide Random Glucose Lactic Acid Lactic Acid F/U @ 2Hr Lactic Acid F/U @ 4Hr Alkaline Phosphatase Total Protein Vancomycin Trough 06/12/21 06/12/21 06/13/21 18:05 21:00 05:59 WBC 14.0 H RBC Hgb 10.2 L MCV 75.3 L MCH 20.7 L MCHC 27.5 L RDW 28.5 H Plt Count Immature Gran % (Auto) Neut % (Auto) Lymph % (Auto) [place] % (Auto) Lymph # (Auto) Abs Immat Gran (auto) Absolute Neuts (auto) PT INR PTT (Heparin Protocol) 24.0 L D VBG pH VBG HCO3 Carbon Dioxide Random Glucose Lactic Acid Lactic Acid F/U @ 2Hr Lactic Acid F/U @ 4Hr Alkaline Phosphatase Total Protein Vancomycin Trough 5.5 L 06/13/21 06/14/21 06/14/21 12:08 06:23 13:40 WBC 15.8 H RBC Hgb 10.5 L MCV 75.0 L MCH 20.6 L MCHC 27.5 L RDW 28.5 H Plt Count Immature Gran % (Auto) Neut % (Auto) Lymph % (Auto) [place] % (Auto) Lymph # (Auto) Abs Immat Gran (auto) Absolute Neuts (auto) PT INR PTT (Heparin Protocol) 28.9 L D VBG pH VBG HCO3 34 H Carbon Dioxide Random Glucose Lactic Acid Lactic Acid F/U @ 2Hr Lactic Acid F/U @ 4Hr Alkaline Phosphatase Total Protein Vancomycin Trough 06/15/21 08:37 WBC RBC Hgb MCV MCH MCHC RDW Plt Count Immature Gran % (Auto) Neut % (Auto) Lymph % (Auto) [place] % (Auto) Lymph # (Auto) Abs Immat Gran (auto) Absolute Neuts (auto) PT INR PTT (Heparin Protocol) VBG pH 7.47 H VBG HCO3 33 H Carbon Dioxide Random Glucose Lactic Acid Lactic Acid F/U @ 2Hr Lactic Acid F/U @ 4Hr Alkaline Phosphatase Total Protein Vancomycin Trough Microbiology: Microbiology 06/10/21 20:09 Blood - Venous Blood Culture - Preliminary No growth after 48 hours. 06/10/21 19:33 Blood - Venous Blood Culture - Preliminary No growth after [address] scan - chest: report reviewed and image reviewed Assessment and Plan (1) Acute and chronic respiratory failure with hypoxia: Status: Acute (2) Recurrent aspiration pneumonia: Status: Acute (3) Hiatal hernia: Status: Acute (4) COPD exacerbation: Status: Acute Impression: 76-year-old lady with underlying end-stage COPD on 4 L supplemental oxygen, hiatal hernia deemed to be inoperable, and recurrent pulmonary aspirations admitted with worsening dyspnea and treated for exacerbation of underlying COPD and aspiration pneumonia, improving slowly. Recommendation: Agree with current treatment plan of systemic glucocorticoids, nebulized bronchodilators, and antibiotic coverage for aspiration pneumonia, though can consider switching Zosyn to Unasyn. Patient appears to be approaching her baseline pulmonary status. Procedures Date of Service Date of Service: 06/15/21
--- NOTE | 2021-06-15 16:16 | HO.VASCPN ---
Subjective Subjective Date of Service: 06/15/21 Patient reports: no new complaints and feels better Interval history: Patient seen examined. No significant events overnight. Appears to be doing relatively well. Left upper extremity is doing significantly better. She reports that it is warm and she has better motor and sensation with that hand. She has had respiratory issues which continue to hold her in the hospital. Physical Exam Vital Signs: Vital Signs: Last Vital Signs Temp 98.3 F 06/15/21 14:54 Pulse 116 H 06/15/21 15:33 Resp 20 06/15/21 15:33 BP 134/85 06/15/21 14:54 Pulse Ox 93 06/15/21 14:54 Oxygen Flow Rate 3 06/10/21 18:25 BMI result Body Mass Index 21.2 Const: General: cooperative, healthy appearing and no acute distress Orientation/consciousness: oriented to person, oriented to place and oriented to time HENMT: Head: Yes normal to inspection Neck: Carotids: no bruits Chest: Chest palpation & inspection: normal inspection of the chest Resp: Effort & Inspection: normal respiratory effort and able to speak in complete sentences Auscultation: clear to auscultation bilaterally Cardio: Rate: regular rate Heart sounds: S1 normal heart sound present and S2 normal heart sound present Peripheral pulses: brachial pulses present, radial pulses present and ulnar radial pulses present GI: Inspection: Yes normal to inspection Skin: General skin exam: no rashes or lesions noted Wounds: no wounds Neuro: General: oriented to person, oriented to place, oriented to time and CN's II-XI intact bilaterally Extrem: General: Yes normal to inspection, Yes full ROM and Yes no clubbing, cyanosis or edema Psych: Appearance: grossly normal and well kempt Speech and movement: Normal speech and movement present Affect: normal affect Progress Note: A&P Assessment and plan (1) Subclavian artery thrombosis: Status: Acute Assessment and Plan: In short patient appears to have had 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 She is status post endovascular stenting. Left upper extremity appears to be doing significantly better. Will plan for outpatient follow-up. Continue medical management for respiratory issues. She is eager to be discharged. Upon discharge he can follow up with us in approximately 2 weeks time. Thank you for allowing us to assist in her care. If there are any questions or concerns please do not hesitate to contact us. Fall Risk Details Current Medications: Current Medications Acetaminophen (Acetaminophen 325 Mg Tablet) 650 mg PO Q6H PRN PRN Reason: Pain, Mild (Pain Scale 1-3) Last Admin: 06/13/21 16:38 Dose: 650 mg Documented by: Albuterol Sulfate (Albuterol Sulfate (0.083%) 2.5 Mg/3 Ml Vial.Neb) 2.5 mg INHALE Q2H PRN PRN Reason: Shortness of Breath/Wheezing Albuterol/Ipratropium (Albuterol/Iprat 2.5/0.5mg 3 Ml Ampul.Neb) 3 ml INHALE RQ4H WHILE AWAKE [facility] Last Admin: 06/15/21 15:31 Dose: 3 ml Documented by: Apixaban (Apixaban 5 Mg Tablet) 5 mg PO BID [facility] Last Admin: 06/15/21 07:45 Dose: 5 mg Documented by: Aspirin (Aspirin 81 Mg Tab.Chew) 81 mg PO DAILY [facility] Last Admin: 06/15/21 07:45 Dose: 81 mg Documented by: Bisacodyl (Bisacodyl 5 Mg Tablet.Dr) 10 mg PO BEDTIME [facility] Last Admin: 06/14/21 20:35 Dose: 10 mg Documented by: Calcium Carbonate/Cholecalciferol (Calcium + Vitamin D 250 Mg Tablet) 500 mg PO DAILY [facility] Last Admin: 06/15/21 07:45 Dose: 500 mg Documented by: Cyanocobalamin (Cyanocobalamin (Vitamin B-12) 1,000 Mcg Tablet) 1,000 mcg PO BEDTIME [facility] Last Admin: 06/14/21 20:36 Dose: 1,000 mcg Documented by: Docusate Sodium (Docusate Sodium 100 Mg Capsule) 100 mg PO BID [facility] Last Admin: 06/15/21 07:45 Dose: 100 mg Documented by: Fluticasone Propionate (Fluticasone Propionate Nasal 16 Gm [place]) 1 spray NOSTRIL-B DAILY [facility] Last Admin: 06/15/21 14:32 Dose: 1 spray Documented by: Folic Acid (Folic Acid 1 Mg Tablet) 1 mg PO BID [facility] Last Admin: 06/15/21 07:45 Dose: 1 mg Documented by: Piperacillin Sod/Tazobactam (Sod 3.375 gm/ Sodium Chloride) 50 mls @ 100 mls/hr IV Q6H [facility] Last Infusion: 06/15/21 14:51 Dose: Infused Documented by: Loratadine (Loratadine 10 Mg Tablet) 10 mg PO DAILY [facility] Last Admin: 06/15/21 13:57 Dose: 10 mg Documented by: Lorazepam (Lorazepam 1 Mg Tablet) 1 mg PO BID PRN PRN Reason: Anxiety Melatonin (Melatonin 3 Mg Tablet) 6 mg PO BEDTIME PRN PRN Reason: Insomnia Last Admin: 06/15/21 00:10 Dose: 6 mg Documented by: Methotrexate (Methotrexate Sodium 2.5 Mg Tablet) 10 mg PO [facility] Methylprednisolone Sodium Succinate (Methylprednisolone Sod Succ 40 Mg/Ml Vial) 40 mg IVPUSH Q6H [facility] Last Admin: 06/15/21 13:57 Dose: 40 mg Documented by: Morphine Sulfate (Morphine Sulfate 2 Mg/Ml Cartridge) 1 mg IVPUSH Q4H PRN; Protocol PRN Reason: pain/SOB Last Admin: 06/15/21 00:09 Dose: 1 mg Documented by: Patient Own Medication (Linzess 145 Mcg Capsule) 2 each PO BEDTIME [facility] Last Admin: 06/14/21 20:36 Dose: 2 each Documented by: Patient Own Medication ( Anoro Ellipta 62.5-25 Mcg Inhaler) 1 each INHALE RDAILY [facility] Last Admin: 06/14/21 10:42 Dose: 1 each Documented by: Omeprazole (Omeprazole 40 Mg Capsule.) 40 mg PO BIDWM [facility] Last Admin: 06/15/21 07:45 Dose: 40 mg Documented by: Pregabalin (Pregabalin 150 Mg Capsule) 150 mg PO BID [facility] Last Admin: 06/15/21 07:45 Dose: 150 mg Documented by: Senna (Sennosides 8.6 Mg Tablet) 17.2 mg PO BEDTIME PRN PRN Reason: Constipation Sodium Chloride (0.9 % Sodium Chloride Flush 3 Ml Syringe) [facility] Last Admin: 06/15/21 07:55 Dose: 3 ml Documented by: Sodium Chloride (0.9 % Sodium Chloride Flush 3 Ml Syringe) [facility] Last Admin: 06/15/21 07:13 Dose: 3 ml Documented by: Zolpidem Tartrate (Zolpidem Tartrate 5 Mg Tablet) 5 mg PO BEDTIME PRN PRN Reason: Insomnia Last Admin: 06/12/21 21:29 Dose: 5 mg Documented by: Time Spent With Patient Time: Total time spent is greater than 50% in coordination of care (as documented) at patient's floor/unit and/or counseling patient: Time with patient: 15 - 24 minutes Procedures Date of Service Date of Service: 06/15/21 Quality Stroke Does the patient have a stroke diagnosis?: No VTE Prior VTE?: Yes VTE Risk Level:: Medical - moderate - high VTE Device Contraindication: Treatment Not Indicated VTE Drug Contraindication: N/A - Med Ordered
--- NOTE | 2021-06-15 19:17 | PC.NURSE ---
pt complaining of a chest heaviness and difficultly breathing. VSS and o2 sat remaining at [address] Dia notified and in to assess patient.
[2021-06-15] MEDS: guaiFENesin LA 600 MG TAB.ER.12H PO ×2 (19:58→20:49)
[2021-06-15] MEDS: Zolpidem Tartrate 5 MG TABLET PO (19:58)
[2021-06-15] MEDS: Ampicillin Sodium/Sulbactam Na 3 GM in 0.9 % Sodium Chloride 100 ML IV (19:58)
[2021-06-15] MEDS: Cyanocobalamin (Vitamin B-12) 1,000 MCG TABLET 1000 MCG PO (19:59)
[2021-06-15] MEDS: bisacodyL 5 MG TABLET.DR 10 MG PO (19:59)
[2021-06-15] MEDS: Acetylcysteine 10 % 400 MG/4 ML VIAL INHALE (20:14)
[2021-06-16] MEDS: Ampicillin Sodium/Sulbactam Na 3 GM in 0.9 % Sodium Chloride 100 ML IV ×2 (01:32→06:32)
[2021-06-16] MEDS: methylPREDNISolone Sod Succ 40 MG/ML VIAL IVPUSH ×2 (01:32→09:17)
[2021-06-16] MEDS: Melatonin 3 MG TABLET 6 MG PO (01:38)
[2021-06-16 01:51] VITALS: RESP 20
[2021-06-16 04:00] VITALS: BP 136/79; PULSE 110; RESP 19; TEMP 36.7; O2SAT 93
[2021-06-16 06:51] LABS: Creatinine Clr Calc Pharmacy 61.1; Estimated Glomerular Filt Rate > 60
[2021-06-16] MEDS: Albuterol/Iprat 2.5/0.5MG 3 ML AMPUL.NEB INHALE (07:37)
[2021-06-16 07:41] VITALS: PULSE 108; RESP 16; O2SAT 93
[2021-06-16 07:43] VITALS: BP 137/90; PULSE 86; RESP 18; TEMP 36.4; O2SAT 97
--- NOTE | 2021-06-16 09:02 | HO.VASCPN ---
Subjective Subjective Date of Service: 06/16/21 Patient reports: no new complaints and feels better Interval history: patient seen and examined. No significant events overnight. Appears to be doing much better. She appears to be improved from her left upper extremity and respiratory status as well. She is resting comfortably in bed. Physical Exam Vital Signs: Vital Signs: Last Vital Signs Temp 97.6 F 06/16/21 07:43 Pulse 86 06/16/21 07:43 Resp 18 06/16/21 07:43 BP 137/90 H 06/16/21 07:43 Pulse Ox 97 06/16/21 07:43 Oxygen Flow Rate 3 06/10/21 18:25 BMI result Body Mass Index 21.2 Const: General: cooperative, healthy appearing and no acute distress Orientation/consciousness: oriented to person, oriented to place and oriented to time HENMT: Head: Yes normal to inspection Neck: Carotids: no bruits Chest: Chest palpation & inspection: normal inspection of the chest Resp: Effort & Inspection: normal respiratory effort and able to speak in complete sentences Auscultation: clear to auscultation bilaterally Cardio: Rate: regular rate Heart sounds: S1 normal heart sound present and S2 normal heart sound present GI: Inspection: Yes normal to inspection Skin: General skin exam: no rashes or lesions noted Wounds: no wounds Neuro: General: oriented to person, oriented to place, oriented to time and CN's II-XI intact bilaterally Extrem: General: Yes normal to inspection, Yes full ROM and Yes no clubbing, cyanosis or edema Psych: Appearance: grossly normal and well kempt Speech and movement: Normal speech and movement present Affect: normal affect Progress Note: A&P Assessment and plan (1) Subclavian artery thrombosis: Status: Acute Assessment and Plan: In short patient is stable from left subclavian artery stenting. She is being maintained on Eliquis Which is for her DVT. Stable from my perspective for discharge. She can follow up with me as an outpatient in approximately 2 weeks time. Thank you for allowing us to assist in her care. Fall Risk Details Current Medications: Current Medications Acetaminophen (Acetaminophen 325 Mg Tablet) 650 mg PO Q6H PRN PRN Reason: Pain, Mild (Pain Scale 1-3) Last Admin: 06/13/21 16:38 Dose: 650 mg Documented by: Albuterol Sulfate (Albuterol Sulfate (0.083%) 2.5 Mg/3 Ml Vial.Neb) 2.5 mg INHALE Q2H PRN PRN Reason: Shortness of Breath/Wheezing Albuterol/Ipratropium (Albuterol/Iprat 2.5/0.5mg 3 Ml Ampul.Neb) 3 ml INHALE RQ4H WHILE AWAKE [facility] Last Admin: 06/16/21 07:37 Dose: 3 ml Documented by: Apixaban (Apixaban 5 Mg Tablet) 5 mg PO BID [facility] Last Admin: 06/15/21 19:59 Dose: 5 mg Documented by: Aspirin (Aspirin 81 Mg Tab.Chew) 81 mg PO DAILY [facility] Last Admin: 06/15/21 07:45 Dose: 81 mg Documented by: Bisacodyl (Bisacodyl 5 Mg Tablet.) 10 mg PO BEDTIME [facility] Last Admin: 06/15/21 19:59 Dose: 10 mg Documented by: Calcium Carbonate/Cholecalciferol (Calcium + Vitamin D 250 Mg Tablet) 500 mg PO DAILY [facility] Last Admin: 06/15/21 07:45 Dose: 500 mg Documented by: Cyanocobalamin (Cyanocobalamin (Vitamin B-12) 1,000 Mcg Tablet) 1,000 mcg PO BEDTIME [facility] Last Admin: 06/15/21 19:59 Dose: 1,000 mcg Documented by: Docusate Sodium (Docusate Sodium 100 Mg Capsule) 100 mg PO BID [facility] Last Admin: 06/15/21 19:58 Dose: 100 mg Documented by: Fluticasone Propionate (Fluticasone Propionate Nasal 16 Gm Covert) 1 spray NOSTRIL-B DAILY [facility] Last Admin: 06/15/21 14:32 Dose: 1 spray Documented by: Folic Acid (Folic Acid 1 Mg Tablet) 1 mg PO BID [facility] Last Admin: 06/15/21 19:59 Dose: 1 mg Documented by: Guaifenesin (Guaifenesin La 600 Mg Tab.Er.12h) 600 mg PO BID [facility] Last Admin: 06/15/21 20:49 Dose: 600 mg Documented by: Ampicillin Sodium/Sulbactam (Sodium 3 gm/ Sodium Chloride) 100 mls @ 200 mls/hr IV Q6H [facility] Last Infusion: 06/16/21 07:17 Dose: Infused Documented by: Levalbuterol HCl (Levalbuterol Hcl 1.25 Mg/0.5 Ml Vial.Una) 1.25 mg INHALE Q3H PRN PRN Reason: Shortness of Breath/Wheezing Loratadine (Loratadine 10 Mg Tablet) 10 mg PO DAILY [facility] Last Admin: 06/15/21 13:57 Dose: 10 mg Documented by: Lorazepam (Lorazepam 1 Mg Tablet) 1 mg PO BID PRN PRN Reason: Anxiety Melatonin (Melatonin 3 Mg Tablet) 6 mg PO BEDTIME PRN PRN Reason: Insomnia Last Admin: 06/16/21 01:38 Dose: 6 mg Documented by: Methotrexate (Methotrexate Sodium 2.5 Mg Tablet) [address] [facility] Methylprednisolone Sodium Succinate (Methylprednisolone Sod Succ 40 Mg/Ml Vial) 40 mg IVPUSH Q6H [facility] Last Admin: 06/16/21 01:32 Dose: 40 mg Documented by: Morphine Sulfate (Morphine Sulfate 2 Mg/Ml Cartridge) 1 mg IVPUSH Q4H PRN; Protocol PRN Reason: pain/SOB Last Admin: 06/15/21 23:35 Dose: 1 mg Documented by: Patient Own Medication (Linzess 145 Mcg Capsule) 2 each PO BEDTIME [facility] Last Admin: 06/15/21 20:09 Dose: 2 each Documented by: Patient Own Medication ( Anoro Ellipta 62.5-25 Mcg Inhaler) 1 each INHALE RDAILY [facility] Last Admin: 06/16/21 07:16 Dose: Not Given Documented by: Omeprazole (Omeprazole 40 Mg Capsule.) 40 mg PO BIDWM [facility] Last Admin: 06/15/21 17:41 Dose: 40 mg Documented by: Pregabalin (Pregabalin 150 Mg Capsule) 150 mg PO BID [facility] Last Admin: 06/15/21 19:58 Dose: 150 mg Documented by: Senna (Sennosides 8.6 Mg Tablet) 17.2 mg PO BEDTIME PRN PRN Reason: Constipation Sodium Chloride (0.9 % Sodium Chloride Flush 3 Ml Syringe) 3 ml IVFLUSH [facility] Last Admin: 06/15/21 23:35 Dose: 3 ml Documented by: Sodium Chloride (0.9 % Sodium Chloride Flush 3 Ml Syringe) 3 ml IVFLUSH [facility] Last Admin: 06/15/21 23:41 Dose: 3 ml Documented by: Zolpidem Tartrate (Zolpidem Tartrate 5 Mg Tablet) 5 mg PO BEDTIME PRN PRN Reason: Insomnia Last Admin: 06/15/21 19:58 Dose: 5 mg Documented by: Time Spent With Patient Time: Total time spent is greater than 50% in coordination of care (as documented) at patient's floor/unit and/or counseling patient: Time with patient: 15 - 24 minutes Procedures Date of Service Date of Service: 06/16/21 Quality Stroke Does the patient have a stroke diagnosis?: No VTE Prior VTE?: Yes VTE Risk Level:: Medical - moderate - high VTE Device Contraindication: Treatment Not Indicated VTE Drug Contraindication: N/A - Med Ordered
[2021-06-16] MEDS: Fluticasone Propionate Nasal 16 GM SPRAY 1 SPRAY NOSTRIL-B (09:14)
[2021-06-16] MEDS: Omeprazole 40 MG CAPSULE.DR PO (09:17)
[2021-06-16] MEDS: Folic Acid 1 MG TABLET PO (09:17)
[2021-06-16] MEDS: guaiFENesin LA 600 MG TAB.ER.12H PO (09:17)
[2021-06-16] MEDS: Docusate Sodium 100 MG CAPSULE PO (09:17)
[2021-06-16] MEDS: Apixaban 5 MG TABLET PO (09:17)
[2021-06-16] MEDS: Calcium + Vitamin D 250 MG TABLET 500 MG PO (09:17)
[2021-06-16] MEDS: Loratadine 10 MG TABLET PO (09:17)
[2021-06-16] MEDS: Pregabalin 150 MG CAPSULE PO (09:17)
[2021-06-16] MEDS: Aspirin 81 MG TAB.CHEW PO (09:17)
[2021-06-16] MEDS: 0.9 % Sodium Chloride Flush 3 ML SYRINGE IVFLUSH (09:18)
--- NOTE | 2021-06-16 10:29 | HO.PM.IMPN ---
Subjective Subjective Date of Service: 06/16/21 Interval History: copd excerebation, pna Physical Exam Vital Signs: Vital Signs: Last Vital Signs Temp 97.6 F 06/16/21 07:43 Pulse 86 06/16/21 07:43 Resp 18 06/16/21 07:43 BP 137/90 H 06/16/21 07:43 Pulse Ox 97 06/16/21 07:43 Oxygen Flow Rate 3 06/10/21 18:25 BMI result Body Mass Index 21.2 General: AO X 3, no acute distress Resp:?has b/l wheezin CVS: S1,S2,RRR GI: +BS, NT, no distention Skin: No rash Neuro:? motor grossly intact Psych: appropriate affect Objective Data Active Medications Acetaminophen (Acetaminophen 325 Mg Tablet) 650 mg PO Q6H PRN PRN Reason: Pain, Mild (Pain Scale 1-3) Last Admin: 06/13/21 16:38 Dose: 650 mg Documented by: ALIZE Albuterol Sulfate (Albuterol Sulfate (0.083%) 2.5 Mg/3 Ml Vial.Neb) 2.5 mg INHALE Q2H PRN PRN Reason: Shortness of Breath/Wheezing Albuterol/Ipratropium (Albuterol/Iprat 2.5/0.5mg 3 Ml Ampul.Neb) 3 ml INHALE RQ4H WHILE AWAKE [facility] Last Admin: 06/16/21 07:37 Dose: 3 ml Documented by: ALEXANDER Apixaban (Apixaban 5 Mg Tablet) 5 mg PO BID [facility] Last Admin: 06/16/21 09:17 Dose: 5 mg Documented by: FLAKITA Aspirin (Aspirin 81 Mg Tab.Chew) 81 mg PO DAILY [facility] Last Admin: 06/16/21 09:17 Dose: 81 mg Documented by: FLAKITA Bisacodyl (Bisacodyl 5 Mg Tablet.Dr) 10 mg PO BEDTIME [facility] Last Admin: 06/15/21 19:59 Dose: 10 mg Documented by: FLAVIA Calcium Carbonate/Cholecalciferol (Calcium + Vitamin D 250 Mg Tablet) 500 mg PO DAILY [facility] Last Admin: 06/16/21 09:17 Dose: 500 mg Documented by: FLAKITA Cyanocobalamin (Cyanocobalamin (Vitamin B-12) 1,000 Mcg Tablet) 1,000 mcg PO BEDTIME [facility] Last Admin: 06/15/21 19:59 Dose: 1,000 mcg Documented by: FLAVIA Docusate Sodium (Docusate Sodium 100 Mg Capsule) 100 mg PO BID [facility] Last Admin: 06/16/21 09:17 Dose: 100 mg Documented by: FLAKITA Fluticasone Propionate (Fluticasone Propionate Nasal 16 Gm [place]) 1 spray NOSTRIL-B DAILY [facility] Last Admin: 06/16/21 09:14 Dose: 1 spray Documented by: FLAKITA Folic Acid (Folic Acid 1 Mg Tablet) 1 mg PO BID [facility] Last Admin: 06/16/21 09:17 Dose: 1 mg Documented by: FLAKITA Guaifenesin (Guaifenesin La 600 Mg Tab.Er.12h) 600 mg PO BID [facility] Last Admin: 06/16/21 09:17 Dose: 600 mg Documented by: FLAKITA Ampicillin Sodium/Sulbactam (Sodium 3 gm/ Sodium Chloride) 100 mls @ 200 mls/hr IV Q6H [facility] Last Infusion: 06/16/21 07:17 Dose: 0 mls/hr Documented by: FLAKITA Levalbuterol HCl (Levalbuterol Hcl 1.25 Mg/0.5 Ml Vial.Neb) 1.25 mg INHALE Q3H PRN PRN Reason: Shortness of Breath/Wheezing Loratadine (Loratadine 10 Mg Tablet) 10 mg PO DAILY [facility] Last Admin: 06/16/21 09:17 Dose: 10 mg Documented by: FLAKITA Lorazepam (Lorazepam 1 Mg Tablet) 1 mg PO BID PRN PRN Reason: Anxiety Melatonin (Melatonin 3 Mg Tablet) 6 mg PO BEDTIME PRN PRN Reason: Insomnia Last Admin: 06/16/21 01:38 Dose: 6 mg Documented by: FLAVIA Methotrexate (Methotrexate Sodium 2.5 Mg Tablet) 10 mg PO [facility] Methylprednisolone Sodium Succinate (Methylprednisolone Sod Succ 40 Mg/Ml Vial) 40 mg IVPUSH Q6H [facility] Last Admin: 06/16/21 09:17 Dose: 40 mg Documented by: FLAKITA Morphine Sulfate (Morphine Sulfate 2 Mg/Ml Cartridge) 1 mg IVPUSH Q4H PRN; Protocol PRN Reason: pain/SOB Last Admin: 06/15/21 23:35 Dose: 1 mg Documented by: FLAVIA Patient Own Medication (Linzess 145 Mcg Capsule) 2 each PO BEDTIME [facility] Last Admin: 06/15/21 20:09 Dose: 2 each Documented by: FLAVIA Patient Own Medication ( Anoro Ellipta 62.5-25 Mcg Inhaler) 1 each INHALE RDAILY [facility] Last Admin: 06/16/21 09:14 Dose: 1 each Documented by: FLAKITA Omeprazole (Omeprazole 40 Mg Capsule.) 40 mg PO BIDWM [facility] Last Admin: 06/16/21 09:17 Dose: 40 mg Documented by: FLAKITA Pregabalin (Pregabalin 150 Mg Capsule) 150 mg PO BID [facility] Last Admin: 06/16/21 09:17 Dose: 150 mg Documented by: FLAKITA Senna (Sennosides 8.6 Mg Tablet) 17.2 mg PO BEDTIME PRN PRN Reason: Constipation Sodium Chloride (0.9 % Sodium Chloride Flush 3 Ml Syringe) [facility] Last Admin: 06/15/21 23:35 Dose: 3 ml Documented by: FLAVIA Sodium Chloride (0.9 % Sodium Chloride Flush 3 Ml Syringe) 3 [facility] Last Admin: 06/16/21 09:18 Dose: 3 ml Documented by: FLAKITA Zolpidem Tartrate (Zolpidem Tartrate 5 Mg Tablet) 5 mg PO BEDTIME PRN PRN Reason: Insomnia Last Admin: 06/15/21 19:58 Dose: 5 mg Documented by: FLAVIA Labs CBC & Chem 7: 06/14/21 06:23 06/16/21 06:02 Labs: Laboratory Results - last 24 hr 06/16/21 06:02 Estim Creat Clear Calc 61.1 Estimated GFR > 60 Microbiology Microbiology Results: Microbiology 06/10/21 20:09 Blood Culture - Final Blood - Venous No growth after 5 days. 06/10/21 19:33 Blood Culture - Final Blood - Venous No growth after 5 days. Assessment and Plan Assessment and Plan: 76-year-old female with a past medical history of rheumatoid arthritis, tobacco dependence, vertebral compression fracture, chronic back pain, iron deficiency anemia, history of recurrent UTIs, history of diastolic heart failure, COPD, ILD, chronic respiratory failure on 4 L of home oxygen, history of left lower extremity DVT on Eliquis; presented to the hospital with a chief complaint of shortness of breath.? 1.Acute hypoxic respiratory failure:?In the setting of COPD exacerbation/aspiration pneumonia.? still ? 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 Attempted to transfered to [facility] but none will take. continue asa , going for angiogram , vascular recommended to hold off IV heparin, if angiogram seems fine then patient is to be started on p.o. Eliquis. 3.History of rheumatoid arthritis: Methotreaxate. 4.History of chronic back pain/vertebral compression fractures:? Pain control. 5.History of DVT: as above in Subclavian artery thrombus? section. 6.History of dysphagia: Patient was on pureed diet.? speech eval-Diet be DOWNGRADED to PUREED (NDD1) w/ HONEY thick liquids, pills CRUSHED in PUREE. ?pt -recomended pulm rehab . Quality Stroke Does the patient have a stroke diagnosis?: No VTE Prior VTE?: Yes VTE Risk Level:: Medical - moderate - high VTE Device Contraindication: Treatment Not Indicated VTE Drug Contraindication: N/A - Med Ordered
[2021-06-16 10:55] VITALS: O2SAT 89
--- NOTE | 2021-06-16 12:08 | PM.DS ---
DS: Providers Provider Date of Service: 06/16/21 Date of admission: 06/11/21 03:20 Primary care physician: Carlos Alberto Rodriges Consults: 06/10/21 22:35 Consult to Vascular Surgery Routine Consulting Provider: Saji Ibrahim Reason for consultation: Subclavian Thrombus 06/11/21 03:20 Consult to Hematology / Oncology Routine Consulting Provider: Rusty Zabala Reason for consultation: new blood clots while on eliquis. 06/14/21 18:53 Consult to Pulmonology Routine Consulting Provider: Jaret Fraga Reason for consultation: copd excerebation -non urgent consult Has provider been notified: No 06/14/21 18:54 Consult to Care Team Routine Comment: Reason for consultation: anxiety 06/14/21 20:54 Consult to Psychiatry Routine Consulting Provider: Psych Covering Reason for consultation: medication eval-care team rec Has provider been notified: No DS: Diagnosis Discharge Diagnosis (1) Subclavian artery thrombosis: Status: Acute DS: Summary Hospital Course Hospital Course: 76-year-old female with a past medical history of rheumatoid arthritis, tobacco dependence, vertebral compression fracture, chronic back pain, iron deficiency anemia, history of recurrent UTIs, history of diastolic heart failure, COPD, ILD, chronic respiratory failure on 4 L of home oxygen, history of left lower extremity DVT on Eliquis; presented to the hospital with a chief complaint of shortness of breath. Hospital course: Patient came with COPD exacerbation and aspiration pneumonia- started on IV antibiotics, nebs, steroids, seen by speech and Swallow and diet recommendation discussed with patient but patient is reluctant to follow them. In addition COPD exacerbation: Shortness of breath is somewhat improving but still require for oxygen try to taper down to 4.5 L still saturating around 89% as per staff, she decided to leave against medical advice - risks of leaving against medical advice and recurrent aspiration pneumonia and COPD exacerbation and hypoxia discussed with her in detail including but she still wants to leave. she is alert oriented x3. In addition repeat home oxygen evaluation also but she refused categorically. patient was told to go to nearest emergency room her if her shortness of breath worsen or become more hypoxic or sats dropped down below 89-90%. in addition patient was found to have Left Subclavian artery thrombus s/p vascular procedure -?left subclavian artery stenting.? She is being maintained on Eliquis ? Which is for her DVT.? Stable from my perspective for discharge.? She can follow up with me as an outpatient in approximately 2 weeks time.?? above was discussed with patient's brother also. Patient is risk of recurrent admission due to her noncompliance with diet and aspiration as well as not compliant probably with the medication use also. She was encouraged for above issues to be compliant. above was discussed in detail with her and her brother- the both understand and in agreement with the plan, time spent 50 minute. Time Spent with Patient Time attestation: Total time spent providing and/or coordinating discharge services: Discharge coordination time: Greater than 30 minutes Quality: Stroke Does the patient have a stroke diagnosis?: No Physical Exam Vital Signs: Vital Signs: Last Vital Signs Temp 97.6 F 06/16/21 07:43 Pulse 86 06/16/21 07:43 Resp 18 06/16/21 07:43 BP 137/90 H 06/16/21 07:43 Pulse Ox 89 L 06/16/21 10:55 Oxygen Flow Rate 3 06/10/21 18:25 BMI result Body Mass Index 21.2 General: AO X 3, no acute distress Resp:?air entry slightly better than yesterday , still has wheezing CVS: S1,S2,RRR GI: +BS, NT, no distention Skin: No rash Neuro:? motor grossly intact Psych: appropriate affect DS: Data Data Completed and Pending Labs on day of discharge: Laboratory Results - last 24 hr 06/16/21 06:02 Creatinine 0.58 Estim Creat Clear Calc 61.1 Estimated GFR > 60 Additional Comments Additional comments: XR/XR chest 1V IMPRESSION: No significantly changed since 06/10/2021. cta: CT/CT angio chest PE protocol IMPRESSION: 1.? No evidence of pulmonary emboli 2.? Interval development of new free-floating thrombus in the left subclavian artery with a single attachment to the wall inferiorly. 3.? New right middle lobe and left lower lobe atelectasis/consolidation. 4.? Other incidental findings as described above ? VTE: negative Discharge Plan Discharge Patient Disposition: Left Against Medical Advice Discharge Diagnosis: COPD exacerbation, aspiration pneumonia. Referrals: [facility] [Outside] - 1 Week Carlos Alberto Rodriges [Primary Care Provider] - 1 Week Saji Ibrahim MD [Physician] - 2 Weeks (fu outpatiently) Discharge Medications: New amoxicillin-pot clavulanate [Augmentin] 875-125 mg tablet 1 tab PO BID Qty: 6 RF: 0 prednisone 20 mg tablet 40 mg PO DAILY Qty: 6 RF: 0 Continued bisacodyl [Dulcolax (bisacodyl)] 5 mg tablet,delayed release (DR/EC) 10 mg PO BEDTIME 30 Days Qty: 60 RF: 3 zolpidem 5 mg tablet 1 tab PO BEDTIME PRN (Reason: Insomnia) RF: 0 pregabalin 150 mg capsule 1 cap PO TID RF: 0 risedronate 150 mg tablet 1 tab PO QMONTH RF: 0 Linzess 290 mcg capsule 290 mcg PO BEDTIME RF: 0 prednisone 20 mg tablet 10 mg PO DAILY RF: 0 lorazepam 1 mg tablet 1 tab PO DAILY PRN (Reason: Anxiety) RF: 0 cyanocobalamin (vitamin B-12) 1,000 mcg tablet 1,000 mcg PO BEDTIME RF: 0 omeprazole 40 mg capsule,delayed release(DR/EC) 40 mg PO DAILY@0630 RF: 0 methotrexate sodium 2.5 mg tablet 10 mg PO SA@0900 RF: 0 docusate sodium 100 mg capsule 100 mg PO BID RF: 0 folic acid 1 mg tablet 1 mg PO BID RF: 0 oxycodone 5 mg tablet 5 mg PO TID PRN (Reason: Pain) RF: 0 Anoro Ellipta 62.5-25 mcg/actuation Blister With Device 1 inh INHALATION DAILY RF: 0 Eliquis 5 mg Tablet 5 mg PO BID Qty: 72 RF: 0 Discharge Orders: Discharge Order (Routine); Ordered 06/16/21 Ordered By: Rolando Diaz Diet: advance to usual diet Activity on Discharge: As tolerated Stand Alone Forms: Patient Portal Discharge page Care Plan Goals: Patient came with COPD exacerbation and aspiration pneumonia- started on IV antibiotics, nebs, steroids, seen by speech and Swallow and diet recommendation discussed with patient but patient is reluctant to follow them. In addition COPD exacerbation: Shortness of breath is somewhat improving but still require for oxygen try to taper down to 4.5 L still saturating around 89% as per staff, she decided to leave against medical advice - risks of leaving against medical advice and recurrent aspiration pneumonia and COPD exacerbation and hypoxia discussed with her in detail including but she still wants to leave. she is alert oriented x3. in addition patient was found to have Left Subclavian artery thrombus s/p vascular procedure -?left subclavian artery stenting.? She is being maintained on Eliquis ? Which is for her DVT.? Stable from my perspective for discharge.? She can follow up with me as an outpatient in approximately 2 weeks time.?? above was discussed with patient's brother also. Health Concerns: as above. Plan of Treatment: as above. Assessment: as above.
--- NOTE | 2021-06-16 12:56 | P.F2F_ITS ---
Service Date Service Date: 06/16/21 Encounter Date of encounter: 06/16/21 Encounter: copd excerebation, aspirational pneumonia Reasons for Services Signs and symptoms assessed: sob Reason for correction: CV/CP assess and/or care, medication management, medication treatment and teach disease management MD Overseeing Care: Carlos Alberto Rodriges Homebound: Leaving the home is medically contraindicated at this time without the asist of a device and/or another person due th the listed conditions above and below. Homebound supporting statement: Patient will need with COPD, pneumonia and medication management as well as appointments Certification: Based on the above findings, I certify that this patient is confined to the home and needs intermittent correction care, physical therapy and/or speech therapy, or continues to need occupational therapy. The patient is under my care, and I have initiated the establishment of the plan of care. The patient will be followed by a physician who will periodically review the plan of care.
--- NOTE | 2021-06-16 13:26 | PC.NURSE ---
patient alert and oriented,left AMA no specific reason given,verbally abusive to staff for not allowing her to take hospitals o2 tank and return later and her causin had to go to her house 5 min away from the hospital and get her home o2 tank for transportation. home meds returned to patient,sergio hong and natalie. After her person transport returned with home 02 tank patient was brought on down to [facility] in a accompanied by hospital staff.
--- NOTE | 2021-06-16 13:26 | MHC.CM.PN ---
PATIENT'S NEPHEW TRANSPORTED PATIENT HOME WITH HER O2 TANK. HE AND PATIENT MADE AWARE TO [employer] AND TO BUY A PULSE-OX AT THE PHARMACY. PATIENT AND NEPHEW REMINDED ON IMPORTANCE OF MONITORING O2 STATS NEPHEW AND PATIENT VERBALIZED UNDERSTANDING AND IN AGREEMENT IMM 06/15 IN CHART
== END 2021-06-16 13:00 | disposition left against medical advice (07) | DRG 252 ==
LOC: HO.ED 06-11 01:04 → HO.EDOVER 06-11 03:41 → HO.S3 06-11 14:14
PROVIDERS: Internal Medicine; Physician Assistant; Surgery Vascular Surgery; Admitting Provider Hospitalist; Emergency Provider Emergency Medicine; PCP Hospitalist; Visit Provider Internal Medicine
PROC: 037Y3DZ Dilation of Upper Artery with Intraluminal Device, Percutaneous Approach (ICD-10-PCS; principal; 2021-06-13 07:30)
DX: I82.B12 Acute embolism and thrombosis of left subclavian vein (principal); J96.21 Acute and chronic respiratory failure with hypoxia; J69.0 Pneumonitis due to inhalation of food and vomit; J44.1 Chronic obstructive pulmonary disease with (acute) exacerbation; S22.079A Unspecified fracture of T9-T10 vertebra, initial encounter for closed fracture; M48.54XA Collapsed vertebra, not elsewhere classified, thoracic region, initial encounter for fracture; I50.32 Chronic diastolic (congestive) heart failure; M06.9 Rheumatoid arthritis, unspecified; F17.210 Nicotine dependence, cigarettes, uncomplicated; K44.9 Diaphragmatic hernia without obstruction or gangrene; F41.1 Generalized anxiety disorder; Z71.6 Tobacco abuse counseling; Z91.14 Patient's other noncompliance with medication regimen; Z91.11 Patient's noncompliance with dietary regimen; X58.XXXA Exposure to other specified factors, initial encounter; Z86.718 Personal history of other venous thrombosis and embolism; Z20.822 Contact with and (suspected) exposure to COVID-19; Z99.81 Dependence on supplemental oxygen; Z79.01 Long term (current) use of anticoagulants; Z79.899 Other long term (current) drug therapy
CPT/HCPCS: 0241U; 36415; 37236; 71045; 71275; 76937; 80048; 80053; 80202; 82565; 82803; 83605; 83880; 84484; 85025; 85027; 85610; 85730; 87040; 92610; 93005; 94640; 96365; 96366; 96367; 96375; 96376; 97162; 99152; 99153; 99285; C1760; C1769; C1876; C1887; J0295; J1956; J2270; J2543; J2920; J2930; J3010; J3370; J3475; Q9967

== ENCOUNTER 2021-06-17 20:46 | Inpatient (IN) | payer MEDICARE, SELFPAY ==
--- NOTE | ~2021-06-17 | CT_ITS ---
EXAMINATION: CT ANGIOGRAM OF THE CHEST WITH AND WITHOUT CONTRAST (CT PULMONARY ANGIOGRAM FOR PE) CLINICAL INFORMATION: Reason for Exam r/o PE, known L subclavian artery thrombus COMPARISON: 06/10/2021 TECHNIQUE: Prior to contrast administration, noncontrast localization images were obtained. Subsequently, multidetector volumetric imaging was performed from the thoracic inlet to below the diaphragms following the administration of 65 mL Omnipaque 350 intravenous contrast. No contrast reaction reported Sagittal, coronal, and MIP oblique sagittal reformatted images were obtained on the CT workstation, uploaded to PACS, and reviewed. This CT examination was performed using dose optimization techniques as appropriate, variously including the following: *Automated exposure control *Adjustment of mA and/or kV according to patient size (this includes techniques or standardized protocols for targeted exams where dose is matched to indication/reason for exam; i.e. extremities or head) *Use of iterative reconstruction technique Total exam dose-length product 252 mGy-cm FINDINGS: QUALITY OF STUDY/CONTRAST BOLUS: Satisfactory. PULMONARY ARTERIES: Subsegmental pulmonary emboli are noted in the right middle lobe, such as seen on image [id number]. THORACIC AORTA: No aneurysm or dissection. Scattered calcifications are present. Stent is present in the proximal left subclavian artery with redemonstrated central thrombosis seen above this level; vessel beyond this site appears patent. LUNG: There is extensive upper lobe predominant emphysema. Redemonstrated coarse calcification in the left upper lobe; adjacent focal opacity appears somewhat decreased since 06/10/2021. There is been worsening opacification of the basilar left lower lobe compared to prior. There is improved aeration of the lateral right middle lobe compared to prior. There is bronchial wall thickening and partially impacted bilateral lower lobe airways, worsened compared to prior. There is also increasing opacification of the right lower lobe posteriorly. PLEURA: No pleural effusion or pneumothorax. MEDIASTINUM: Visualized thyroid gland appears unremarkable. Redemonstrated large hiatal hernia. No appreciable mediastinal lymphadenopathy. Cardiac size is within normal limits; no pericardial effusion. CHEST WALL/AXILLA: No axillary or internal mammary lymphadenopathy. OSSEOUS STRUCTURES: Degenerative changes are noted in the spine. Multilevel compression deformities are similar to prior, some of which contain augmentation cement. UPPER ABDOMEN: Unremarkable. No reflux of contrast into the hepatic veins to suggest elevated right heart pressures. CT/CT angio chest PE protocol IMPRESSION: 1. Subsegmental right middle lobe pulmonary emboli. 2. Worsening bilateral lower lobe consolidations compared to prior. Impacted airways are also noted in the lower lobes, and findings could be due to aspiration. 3. Extensive upper lobe predominant emphysema. 4. Redemonstrated thrombus in the proximal left subclavian artery. 5. Large hiatal hernia. VTE: negative This critical result was discussed with Dr. Clarissa Serrano on 06/18/2021 1:29 AM, and it was ascertained that the content and urgency of the report was understood at the time of direct communication.
--- NOTE | ~2021-06-17 | XR_ITS ---
EXAMINATION: XR CHEST CLINICAL INFORMATION: Hypoxia. COMPARISON: Most recent chest radiograph done earlier the same day. TECHNIQUE: Frontal view of the chest was obtained. FINDINGS: Interstitial prominence is redemonstrated. Bilateral airspace opacities again noted, most dense within the retrocardiac space. Findings are similar when compared to the prior examination. No pleural effusion or pneumothorax. Stable cardiomediastinal silhouette. Vascular stent redemonstrated within the superior mediastinum. Partially visualized vertebroplasty. XR/XR chest 1V IMPRESSION: Bilateral airspace opacities, most prominent within the retrocardiac space, unchanged.
--- NOTE | ~2021-06-17 | XR_ITS ---
EXAMINATION: XR CHEST CLINICAL INFORMATION: Shortness of breath COMPARISON: 06/14/2021 TECHNIQUE: Frontal view of the chest was obtained. FINDINGS: Large hiatal hernia. Multifocal reticular airspace opacities are present within both lungs, most notable in the region of the right middle lobe, right lower lobe, and left lower lobe, similar to prior. Large calcified granuloma is again seen in the left upper lobe. No pneumothorax or pleural effusion. Cardiac and mediastinal contours are unchanged. Bones are osteopenic. Chronic changes of prior vertebral augmentation. XR/XR chest 1V IMPRESSION: No significant change from prior study. Persistent airspace consolidation in the region of the right middle and bilateral lower lobes.
--- NOTE | ~2021-06-17 | CT_ITS ---
EXAMINATION: CT HEAD WITHOUT CONTRAST CLINICAL INFORMATION: Fall. Bleeding from nose. Anticoagulated. COMPARISON: CT brain dated 02/07/2017. TECHNIQUE: Contiguous axial imaging was performed from the skull base to vertex without intravenous administration of contrast. This CT examination was performed using dose optimization techniques as appropriate, variously including the following: *Automated exposure control *Adjustment of mA and/or kV according to patient size (this includes techniques or standardized protocols for targeted exams where dose is matched to indication/reason for exam; i.e. extremities or head) *Use of iterative reconstruction technique DLP: 610 mGy-cm FINDINGS: There is no evidence of acute intracranial hemorrhage or territorial infarction. No abnormal mass effect or midline shift is seen. Ashley to white matter differentiation is well preserved. No extra-axial fluid collections are identified. Mild prominence of the ventricles and sulci, consistent with mild diffuse atrophy. Mild periventricular white matter hypoattenuation consistent with chronic microvascular ischemic disease. Subcutaneous soft tissue swelling overlying the left frontal calvarium consistent with a soft tissue hematoma. Minimally displaced bilateral nasal bone fractures. Air-fluid levels and mucoperiosteal thickening in the bilateral maxillary sinuses, which could indicate a degree of sinusitis. CT/CT head/brain wo con IMPRESSION: No acute intracranial hemorrhage or mass effect. Mild diffuse cerebral atrophy and chronic microvascular ischemic disease. Minimally displaced bilateral nasal bone fractures. Air-fluid levels within the maxillary sinuses, which could indicate a degree of sinusitis.
--- NOTE | ~2021-06-17 | XR_ITS ---
EXAMINATION: XR CHEST CLINICAL INFORMATION: Shortness of breath COMPARISON: 06/17/2021 TECHNIQUE: Frontal view of the chest was obtained. XR/XR chest 1V FINDINGS/IMPRESSION: Severe emphysema. Diffuse bronchial wall thickening. Patchy and streaky opacities redemonstrated throughout the mid and lower lungs bilaterally, without appreciable change from prior. No pleural effusion or pneumothorax. Moderate hiatal hernia. Stents redemonstrated within the proximal left subclavian artery. No acute or suspicious osseous or maladies.
--- NOTE | 2021-06-17 21:17 | ECG_ITS ---
Test Reason : SOB Blood Pressure : / mmHG Vent. Rate : 109 BPM Atrial Rate : 109 BPM P-R Int : 136 ms QRS Dur : 074 ms QT Int : 344 ms P-R-T Axes : 060 -35 067 degrees QTc Int : 463 ms Sinus tachycardia Left axis deviation Minimal voltage criteria for LVH, may be normal variant ( Jatin product ) Abnormal ECG When compared with ECG of 10-JUN-2021 22:36, No significant change was found Referred By: Clarissa Serrano Electronically Signed By:YESSY JUNG MD
--- NOTE | 2021-06-17 21:22 | ED.GENADULT ---
HPI - General Adult General Chief complaint: Upper Respiratory Symptoms Stated complaint: multiple complaints Time Seen by Provider: 06/17/21 20:57 Source: patient and EMS Mode of arrival: EMS Limitations: no limitations History of Present Illness HPI narrative: Patient returns to the ED via EMS. Patient left against medical advice yesterday from the floor. Patient was admitted for acute respiratory failure, pneumonia, COPD exacerbation, left subclavian artery thrombus. Patient uses 4 L at home. On 4 L patient was saturating in the low 60s. EMS stretcher to a non-rebreather, currently saturating in the low 90s. Patient denies chest pain, only complaining of shortness of breath. Patient states that at home she has been compliant with her blood thinners, Eliquis. However, today she took her last dose does not have any more medication at home. Related Data Home Medications Medication Instructions Recorded Confirmed cyanocobalamin (vitamin B-12) 1,000 mcg PO BEDTIME 03/31/21 06/11/21 1,000 mcg tablet docusate sodium 100 mg capsule 100 mg PO BID 03/31/21 06/11/21 folic acid 1 mg tablet 1 mg PO BID 03/31/21 06/11/21 methotrexate sodium 2.5 mg tablet 10 mg PO SA@0900 03/31/21 06/11/21 omeprazole 40 mg capsule,delayed 40 mg PO DAILY@0630 03/31/21 06/11/21 release oxycodone 5 mg tablet 5 mg PO TID PRN 03/31/21 06/11/21 umeclidinium 62.5 mcg-vilanterol 1 inh INHALATION DAILY 03/31/21 06/11/21 25 mcg/actuation powdr for inhalation (Anoro Ellipta) linaclotide 290 mcg capsule 290 mcg PO BEDTIME 05/18/21 06/11/21 (Linzess) pregabalin 150 mg capsule 1 cap PO TID 05/18/21 06/11/21 risedronate 150 mg tablet 1 tab PO QMONTH 05/18/21 06/11/21 zolpidem 5 mg tablet 1 tab PO BEDTIME PRN 05/18/21 06/11/21 lorazepam 1 mg tablet 1 tab PO DAILY PRN 06/11/21 06/11/21 prednisone 20 mg tablet 10 mg PO DAILY 06/11/21 06/11/21 Previous Rx's Medication Instructions Recorded apixaban 5 mg tablet (Eliquis) 5 mg PO BID #72 tab 04/01/21 bisacodyl 5 mg tablet,delayed 10 mg PO BEDTIME 30 Days #60 tab 05/15/21 release (Dulcolax (bisacodyl)) amoxicillin 875 mg-potassium 1 tab PO BID #6 tab 06/16/21 clavulanate 125 mg tablet (Augmentin) prednisone 20 mg tablet 40 mg PO DAILY #6 tab 06/16/21 Allergies Allergy/AdvReac Type Severity Reaction Status Date / Time loratadine [From CLARITIN] Allergy Unknown MOUTH SORE Verified 06/13/21 07:09 Review of Systems Review of Systems: Constitutional : No Weight loss, No Fever, No Chills, No Night Sweats, complaining of chronic Fatigue, No Malaise ENT/Mouth : No Hearing loss, No Ear Pain, No Nasal Congestion, No Sinus Pain, No Hoarseness, No sore throat, No Rhinorrhea, No Swallowing Difficulty Eyes: No Eye Pain, No Swelling, No Redness, No Foreign Body, No Discharge, No Vision Changes Cardiovascular : No Chest Pain, no lower extremity edema, no palpitations Respiratory : Complaining of chronic cough, sputum production, wheezing, shortness of breath worse with exertion Gastrointestinal : No Nausea, No Vomiting, No Diarrhea, No Constipation, No abdominal Pain, No Hematochezia, No Melena Genitourinary : no irregular bleeding, No Dysuria, No Urinary Frequency, No Hematuria, No Urinary Incontinence, No Urgency, No Flank Pain, No Urinary Flow Changes, No Hesitancy Musculoskeletal : No joint pain, No Myalgias, No Joint Swelling Skin : No Skin Lesions, No rash Neuro : No Weakness, No Numbness, No Paresthesias, No Loss of Consciousness, No Dizziness, No Headache Psych : No Anxiety/Panic, No Depression, No SI/HI/AH/VH, No Social Issues, Heme/Lymph: No Bruising, No Bleeding,No Lymphadenopathy Endocrine : No Polyuria, No Polydipsia, No Temperature Intolerance [facility] Past Medical History Medical History Bipolar disorder Chronic idiopathic constipation Chronic respiratory failure with hypoxia Compression fracture of T9 vertebra COPD (chronic obstructive pulmonary disease) DVT (deep venous thrombosis) DVT (deep venous thrombosis) Hiatal hernia Hiatal hernia History of diverticulitis History of treatment for tuberculosis Interstitial lung disease Iron deficiency anemia Left rib fracture Opioid abuse Peripheral neuropathy Rash Rheumatoid arthritis Rib pain on left side Rib pain on right side Surgical History H/O colonoscopy H/O esophagogastroduodenoscopy Social History Social History Household Members: None Housing: House Do you presently have visiting nurse or other home services: No Alcohol intake: unknown Patient Tobacco Use Status: Current everyday Tobacco user Tobacco use type: Cigarette Use of substances other than those prescribed or required for medical reasons: No Advance Directives: No service: No Current occupational status: retired Physical Exam Vital Signs: Vital Signs: Last Vital Signs Temp 97.9 F 06/18/21 00:58 Pulse 100 06/18/21 00:58 Resp 20 06/18/21 00:58 BP 118/62 06/18/21 00:58 Pulse Ox 94 06/18/21 00:58 BMI result Body Mass Index 24.5 Const: Other: Appearance: Alert. Oriented X3. Mild respiratory distress on a non-rebreather Eyes: Pupils equal, round and reactive to light. ENT: Pharynx normal. Neck: Normal inspection. Neck supple. No lymph nodes noted. No crepitus CVS: Normal heart rate and rhythm. Pulses normal. Normal S1 and S2 Respiratory: Mild respiratory distress on 15 L, bilateral wheezing and decreased breath sounds bilaterally Abdomen: Soft and nontender. No rigidity. No distention. Skin: Skin warm and dry. Normal skin color. Normal skin turgor. Extremities: No lower extremity edema. No lower extremity edema. No Lacerations. No Rash Neuro: Oriented X 3. No motor deficit. No sensory deficit. Moving all extermities. No slurred speech. Course Course Course Narrative: Patient has new no this saw pulmonary embolisms in the right middle lobe which are new from previous imaging. I restarted patient on heparin. Patient was previously being treated with a heparin drip. Patient also received ceftriaxone, azithromycin. Patient is COVID negative Patient's oxygen saturation was above 60% on her usual 4 L. Initially patient was placed on a non-rebreather, we tried weaning her off on a Venti mask, but her oxygen saturation dropped to the low 80s. Patient was switched to a high-flow, oxygen saturation in the low 90s. Patient does not have a fever, lactic acid 0.9, blood pressure stable. Sepsis is not suspected. I discussed the patient with Dr. James, patient being admitted. Medical Decision Making Lab Data Result diagrams: 06/17/21 21:23 06/17/21 21:33 Labs: Lab Results 06/17/21 06/17/21 06/17/21 Range/Units 21:23 21:23 21:33 WBC 23.0 H (4.8-10.8) X10*3/uL RBC 4.77 (4.20-5.50) X10*6/uL Hgb 10.2 L (12.0-16.0) g/dl Hct 35.1 L (37.0-47.0) % MCV 73.6 L (80.0-98.0) fL MCH 21.4 L (27.0-33.0) pg MCHC 29.1 L (31.0-35.0) g/dl RDW 29.3 H (11.0-16.0) % Plt Count 287 (160-400) X10*3/uL MPV Not Reportable Immature Gran % (Auto) 1.0 H (0.0-0.4) % Neut % (Auto) 91.9 H (45-73) % Lymph % (Auto) 2.7 L (20-40) % Ransom % (Auto) 4.2 (2-11) % Eos % (Auto) 0.1 (0-4) % Baso % (Auto) 0.1 (0-2) % Lymph # (Auto) 0.6 L (1.2-4.9) X10*3/uL Ransom # (Auto) 1.0 (0.1-1.2) X10*3/uL Eos # (Auto) 0.0 (0.0-0.4) X10*3/uL Baso # (Auto) 0.0 (0.0-0.2) X10*3/uL Abs Immat Gran (auto) 0.23 H (0.00-0.03) X10*3/uL Absolute Neuts (auto) 21.1 H (2.0-8.3) x10*3/uL Absolute Nucleated RBC 0.020 H (0.0-0.012) X10*3/uL Nucleated RBC % (auto) 0.1 (0.0-0.2) /100WBC Smear Tech's Comments VERIFIED PT 23.1 H (9.9-13.0) SEC INR 2.0 H (0.9-1.1) D-Dimer High Sensitivty 361 NG/ML VBG pH (7.32-7.43) VBG pCO2 mmHg VBG pO2 mmHg VBG HCO3 (22-26) mmol/L VBG O2 Saturation % VBG Base Excess mmol/L Sodium 142 (135-145) mmol/L Potassium 4.0 (3.3-5.1) mmol/L Chloride 105 (96-108) mmol/L Carbon Dioxide 29 (22-29) mmol/L Anion Gap 12 (12-20) BUN 14 (9-16) mg/dL Creatinine 0.58 (0.5-1.4) mg/dL Estim Creat Clear Calc 70.2 Estimated GFR > 60 Random Glucose 74 (60-115) mg/dL Lactic Acid (0.5-2.0) mmol/L Calcium 9.0 (8.4-10.2) mg/dL Total Bilirubin 0.9 (0.0-1.0) mg/dL Direct Bilirubin 0.3 (0.0-0.5) mg/dL AST 17 (5-31) U/L ALT 18 (0-31) U/L Alkaline Phosphatase 124 H (39-117) U/L Troponin I High Sens (<3.5-17.0) ng/L Total Protein 5.6 L (6.5-8.0) g/dL Albumin 3.3 L (3.5-5.0) g/dL 06/17/21 06/17/21 06/17/21 Range/Units 21:33 21:37 21:53 WBC (4.8-10.8) X10*3/uL RBC (4.20-5.50) X10*6/uL Hgb (12.0-16.0) g/dl Hct (37.0-47.0) % MCV (80.0-98.0) fL MCH (27.0-33.0) pg MCHC (31.0-35.0) g/dl RDW (11.0-16.0) % Plt Count (160-400) X10*3/uL MPV Immature Gran % (Auto) (0.0-0.4) % Neut % (Auto) (45-73) % Lymph % (Auto) (20-40) % Ransom % (Auto) (2-11) % Eos % (Auto) (0-4) % Baso % (Auto) (0-2) % Lymph # (Auto) (1.2-4.9) X10*3/uL Ransom # (Auto) (0.1-1.2) X10*3/uL Eos # (Auto) (0.0-0.4) X10*3/uL Baso # (Auto) (0.0-0.2) X10*3/uL Abs Immat Gran (auto) (0.00-0.03) X10*3/uL Absolute Neuts (auto) (2.0-8.3) x10*3/uL Absolute Nucleated RBC (0.0-0.012) X10*3/uL Nucleated RBC % (auto) (0.0-0.2) /100WBC Smear Tech's Comments PT (9.9-13.0) SEC INR (0.9-1.1) D-Dimer High Sensitivty NG/ML VBG pH 7.48 H (7.32-7.43) VBG pCO2 38 mmHg VBG pO2 141 mmHg VBG HCO3 28 H (22-26) mmol/L VBG O2 Saturation 99.0 % VBG Base Excess 5.4 mmol/L Sodium (135-145) mmol/L Potassium (3.3-5.1) mmol/L Chloride (96-108) mmol/L Carbon Dioxide (22-29) mmol/L Anion Gap (12-20) BUN (9-16) mg/dL Creatinine (0.5-1.4) mg/dL Estim Creat Clear Calc Estimated GFR Random Glucose (60-115) mg/dL Lactic Acid 0.9 (0.5-2.0) mmol/L Calcium (8.4-10.2) mg/dL Total Bilirubin (0.0-1.0) mg/dL Direct Bilirubin (0.0-0.5) mg/dL AST (5-31) U/L ALT (0-31) U/L Alkaline Phosphatase (39-117) U/L Troponin I High Sens 11.8 D (<3.5-17.0) ng/L Total Protein (6.5-8.0) g/dL Albumin (3.5-5.0) g/dL Imaging Data CTA for PE: Radiologist's impression: FINDINGS: QUALITY OF STUDY/CONTRAST BOLUS: Satisfactory. PULMONARY ARTERIES: Subsegmental pulmonary emboli are noted in the right middle lobe, such as seen on image [id number].? THORACIC AORTA: No aneurysm or dissection. Scattered calcifications are present. Stent is present in the proximal left subclavian artery with redemonstrated central thrombosis seen above this level; vessel beyond this site appears patent. LUNG: There is extensive upper lobe predominant emphysema. Redemonstrated coarse calcification in the left upper lobe; adjacent focal opacity appears somewhat decreased since 06/10/2021. There is been worsening opacification of the basilar left lower lobe compared to prior. There is improved aeration of the lateral right middle lobe compared to prior. There is bronchial wall thickening and partially impacted bilateral lower lobe airways, worsened compared to prior. There is also increasing opacification of the right lower lobe posteriorly. PLEURA: No pleural effusion or pneumothorax. MEDIASTINUM: Visualized thyroid gland appears unremarkable. Redemonstrated large hiatal hernia. No appreciable mediastinal lymphadenopathy. Cardiac size is within normal limits; no pericardial effusion. CHEST WALL/AXILLA: No axillary or internal mammary lymphadenopathy. OSSEOUS STRUCTURES: Degenerative changes are noted in the spine. Multilevel compression deformities are similar to prior, some of which contain augmentation cement.? UPPER ABDOMEN: Unremarkable. No reflux of contrast into the hepatic veins to suggest elevated right heart pressures. CT/CT angio chest PE protocol IMPRESSION: 1.? Subsegmental right middle lobe pulmonary emboli. 2.? Worsening bilateral lower lobe consolidations compared to prior. Impacted airways are also noted in the lower lobes, and findings could be due to aspiration. 3.? Extensive upper lobe predominant emphysema. 4.? Redemonstrated thrombus in the proximal left subclavian artery. 5.? Large hiatal hernia. Critical Care Time Critical Care Time Critical Care Time: Yes Total Critical Care Time: 60 Attestation: 60 minutes were spent in direct patient care, stabilization. Discharge Plan Discharge Clinical Impression: Pulmonary air embolism, COPD (chronic obstructive pulmonary disease), Respiratory failure Patient Disposition: Admitted As Inpatient Prescriptions: No Action bisacodyl [Dulcolax (bisacodyl)] 5 mg tablet,delayed release (DR/EC) 10 mg PO BEDTIME 30 Days Qty: 60 RF: 3 zolpidem 5 mg tablet 1 tab PO BEDTIME PRN (Reason: Insomnia) RF: 0 pregabalin 150 mg capsule 1 cap PO TID RF: 0 risedronate 150 mg tablet 1 tab PO QMONTH RF: 0 Linzess 290 mcg capsule 290 mcg PO BEDTIME RF: 0 prednisone 20 mg tablet 10 mg PO DAILY RF: 0 lorazepam 1 mg tablet 1 tab PO DAILY PRN (Reason: Anxiety) RF: 0 amoxicillin-pot clavulanate [Augmentin] 875-125 mg tablet 1 tab PO BID Qty: 6 RF: 0 prednisone 20 mg tablet 40 mg PO DAILY Qty: 6 RF: 0 cyanocobalamin (vitamin B-12) 1,000 mcg tablet 1,000 mcg PO BEDTIME RF: 0 omeprazole 40 mg capsule,delayed release(DR/EC) 40 mg PO DAILY@0630 RF: 0 methotrexate sodium 2.5 mg tablet 10 mg PO SA@0900 RF: 0 docusate sodium 100 mg capsule 100 mg PO BID RF: 0 folic acid 1 mg tablet 1 mg PO BID RF: 0 oxycodone 5 mg tablet 5 mg PO TID PRN (Reason: Pain) RF: 0 Anoro Ellipta 62.5-25 mcg/actuation Blister With Device 1 inh INHALATION DAILY RF: 0 Eliquis 5 mg Tablet 5 mg PO BID Qty: 72 RF: 0
[2021-06-17] MEDS: Albuterol Sulfate (0.083%) 2.5 MG/3 ML VIAL.NEB 10 MG INHALE (21:25)
[2021-06-17] MEDS: Albuterol/Iprat 2.5/0.5MG 3 ML AMPUL.NEB INHALE (21:25)
[2021-06-17 21:28] VITALS: PULSE 108; RESP 20; O2SAT 90
[2021-06-17 21:38] VITALS: BP 134/78; BP 168/84; PULSE 112; PULSE 120; RESP 22; TEMP 36.8; O2SAT 92; BMI 24.5
[2021-06-17 21:52] LABS: Basophils Percent Auto 0.1 % (0-2); Eosinophils Percent Auto 0.1 % (0-4); Monocytes Percent Auto 4.2 % (2-11); SCAN SMEAR FLAG 1
[2021-06-17 21:54] LABS: Hematocrit 35.1 % (37.0-47.0); Hemoglobin 10.2 g/dl (12.0-16.0); Imm Gran Abs Auto 0.23 X10*3/uL (0.00-0.03); Lymphocytes Absolute Auto 0.6 X10*3/uL (1.2-4.9); Lymphocytes Percent Auto 2.7 % (20-40); MANUAL DIFF FLAG SCAN; Mean Corpuscular HGB Conc 29.1 g/dl (31.0-35.0); Mean Corpuscular Hemoglobin 21.4 pg (27.0-33.0); Mean Corpuscular Volume 73.6 fL (80.0-98.0); NRBC Pct Auto 0.1 /100WBC (0.0-0.2); Neutrophils Absolute Auto 21.1 x10*3/uL (2.0-8.3); Neutrophils Percent Auto 91.9 % (45-73); Platelet Count 287 X10*3/uL (160-400); Prothrombin Time 23.1 SEC (9.9-13.0); Red Blood Count 4.77 X10*6/uL (4.20-5.50); Red Cell Distribution Width 29.3 % (11.0-16.0)
[2021-06-17 21:55] LABS: PLT ABN DIST 1
[2021-06-17 21:56] LABS: D Dimer High Sensitivity 361 NG/ML
[2021-06-17 22:08] LABS: Alanine Aminotransferase 18 U/L (0-31); Albumin Level 3.3 g/dL (3.5-5.0); Alkaline Phosphatase 124 U/L (39-117); Anion Gap 12 (12-20); Aspartate Amino Transferase 17 U/L (5-31); Bilirubin Direct 0.3 mg/dL (0.0-0.5); Bilirubin Total 0.9 mg/dL (0.0-1.0); Blood Urea Nitrogen 14 mg/dL (9-16); Carbon Dioxide 29 mmol/L (22-29); Chloride 105 mmol/L (96-108); Creatinine Clr Calc Pharmacy 70.2; Estimated Glomerular Filt Rate > 60; Glucose Random 74 mg/dL (60-115); Sodium 142 mmol/L (135-145); Total Protein 5.6 g/dL (6.5-8.0)
[2021-06-17 22:10] LABS: Lactic Acid 0.9 mmol/L (0.5-2.0)
[2021-06-17 22:14] LABS: SLIDE REVIEW VERIFIED
[2021-06-17 22:20] LABS: Troponin-I High Sensitivity 11.8 ng/L (<3.5-17.0)
[2021-06-17] MEDS: traMADoL HCL 50 MG TABLET PO (22:36)
[2021-06-17] MEDS: methylPREDNISolone Sod Succ 125 MG/2 ML VIAL IVPUSH (22:36)
[2021-06-17] MEDS: cefTRIAXone sodium 1 GM in 0.9 % Sodium Chloride 50 ML IV (22:40)
[2021-06-17] MEDS: Azithromycin 500 MG in 0.9 % Sodium Chloride 250 ML 125 MG IV (22:41)
[2021-06-17] MEDS: 0.9 % Sodium Chloride 1,000 ML 999 ML IVCONT ×2 (22:42)
[2021-06-17 22:55] LABS: Venous Blood Gas Refer to POC result
[2021-06-17 22:57] LABS: VBG Base Excess 5.4 mmol/L; VBG HCO3 28 mmol/L (22-26); VBG pCO2 38 mmHg; VBG pH 7.48 (7.32-7.43); VBG pO2 141 mmHg
[2021-06-17] MEDS: Morphine Sulfate 2 MG/ML CARTRIDGE IVPUSH (23:45)
[2021-06-17 23:54] VITALS: BP 111/77; PULSE 104; RESP 22; O2SAT 90; O2SAT 97
[2021-06-17 23:58] VITALS: PULSE 105; RESP 24; O2SAT 93
[2021-06-18] VITALS (11 sets, daily range): BP systolic 98–119; BP diastolic 50–66; PULSE 74–103; RESP 18–23; TEMP 36.2–36.6; O2SAT 70–95
[2021-06-18] MEDS: iohexoL 350 MG/ML 100 ML INFUS..BTL 65 ML IV (01:01)
--- NOTE | 2021-06-18 01:14 | PC.NURSE ---
pt placed on high flow after non-rebreather was unscuessful increasing stats. pt difficult Iv stick, labs collected and medication given per aug. pure wick in place. pt on bedside monitor. Will continue to monitor.
--- NOTE | 2021-06-18 01:30 | PC.NURSE ---
Per Dr. Mejia, pt ok to hace ice chips Explained to pt npo status and needing speech eval Pt frustrated and verbally abusive to staff
--- NOTE | 2021-06-18 01:34 | PC.NURSE ---
pt is sleeping at this time.
[2021-06-18 01:46] LABS: Partial Thromboplastin Time 28.4 SEC (24.1-38.0)
[2021-06-18] MEDS: Heparin Sodium,Porcine/1/2NS 25,000 UNIT/250 ML IV.SOLN 8.26 UNIT IVCONT (02:21)
--- NOTE | 2021-06-18 02:26 | PC.NURSE ---
heparin drip started verifed with HERVE hyman. Repositioned and change pt. pure-wick working and placed correctly at this time.
--- NOTE | 2021-06-18 03:11 | PM.IMHP ---
History of Present Illness Date of Service: 06/18/21 Chief Complaint: shortness of breath and hypoxia 76-year-old female with a past medical history of rheumatoid arthritis, tobacco dependence, vertebral compression fracture, chronic back pain, iron deficiency anemia, history of recurrent UTIs, history of diastolic heart failure, COPD, ILD, chronic respiratory failure on 4 L of home oxygen, history of left lower extremity DVT and had been on Eliquis. 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 She left AMA on 06/16/21 because I was worry about my cat . She comes back today with increasing shortness of breath and found by EMS to be severely hypoxic with oxygen saturation in the 60s on 4 liters. CTA of chest shows Subsegmental right middle lobe pulmonary emboli. 2.? Worsening bilateral lower lobe consolidations compared to prior. She is restarted on IV heparin and given IV abx for presumed aspiration pneumonia. Oxygenation has improved on high flow. Review of Systems Review of Systems: Gen: no fever Resp: + sob, no cough CV: no chest, no OSBORN, no leg edema GI: No n/v, no abd pain Neuro: No confusion Yes all other systems are reviewed and are negative [facility] Medical History Bipolar disorder Chronic idiopathic constipation Chronic respiratory failure with hypoxia Compression fracture of T9 vertebra COPD (chronic obstructive pulmonary disease) DVT (deep venous thrombosis) DVT (deep venous thrombosis) Hiatal hernia Hiatal hernia History of diverticulitis History of treatment for tuberculosis Interstitial lung disease Iron deficiency anemia Left rib fracture Opioid abuse Peripheral neuropathy Rash Rheumatoid arthritis Rib pain on left side Rib pain on right side Pertinent family history: reports no family history of chronic lung illneses Surgical History H/O colonoscopy H/O esophagogastroduodenoscopy Social History Household Members: None Housing: House Do you presently have visiting nurse or other home services: No Alcohol intake: unknown Patient Tobacco Use Status: Current everyday Tobacco user Tobacco use type: Cigarette Use of substances other than those prescribed or required for medical reasons: No Advance Directives: No service: No Current occupational status: retired Meds Allergies Allergy/AdvReac Type Severity Reaction Status Date / Time loratadine [From CLARITIN] Allergy Unknown MOUTH SORE Verified 06/13/21 07:09 Active Medications: Current Medications Heparin Sodium/Sodium Chloride () 25,000 unit in 250 mls @ 0 mls/hr IVCONT .Q0M LACEY; Protocol Last Admin: 06/18/21 02:21 Dose: 14 units/kg/hr, 8.26 mls/hr Documented by: Home Medications Medication Instructions Recorded Confirmed Last Taken Type cyanocobalamin (vitamin B-12) 1,000 mcg PO BEDTIME 03/31/21 06/11/21 05/17/21 History 1,000 mcg tablet docusate sodium 100 mg capsule 100 mg PO BID 03/31/21 06/11/21 05/17/21 History folic acid 1 mg tablet 1 mg PO BID 03/31/21 06/11/21 05/17/21 History methotrexate sodium 2.5 mg tablet 10 mg PO SA@0900 03/31/21 06/11/21 05/13/21 History omeprazole 40 mg capsule,delayed 40 mg PO DAILY@0630 03/31/21 06/11/21 05/17/21 History release oxycodone 5 mg tablet 5 mg PO TID PRN 03/31/21 06/11/21 03/30/21 History umeclidinium 62.5 mcg-vilanterol 1 inh INHALATION DAILY 03/31/21 06/11/21 05/17/21 History 25 mcg/actuation powdr for inhalation (Anoro Ellipta) linaclotide 290 mcg capsule 290 mcg PO BEDTIME 05/18/21 06/11/21 05/17/21 History (Linzess) pregabalin 150 mg capsule 1 cap PO TID 05/18/21 06/11/21 05/17/21 History risedronate 150 mg tablet 1 tab PO QMONTH 05/18/21 06/11/21 05/15/21 History zolpidem 5 mg tablet 1 tab PO BEDTIME PRN 05/18/21 06/11/21 Unknown History lorazepam 1 mg tablet 1 tab PO DAILY PRN 12/26/21 12/26/21 Unknown History prednisone 20 mg tablet 10 mg PO DAILY 06/11/21 06/11/21 Unknown History Physical Exam Vital Signs and Narrative: Vital Signs: Last Vital Signs Temp 97.9 F 06/18/21 00:58 Pulse 100 06/18/21 00:58 Resp 20 06/18/21 00:58 BP 118/62 06/18/21 00:58 Pulse Ox 94 06/18/21 00:58 BMI result Body Mass Index 24.5 Const: Other: Constitutional: Alert, in no distress, cachectic Mental Status: Oriented to person, place and time. Eyes: Pupils are equal, round and reactive to light. Ear, Nose and Throat: Oropharynx clear, mucous membranes moist. Ears and nose without eformities. Trachea midline. Respiratory: tight air movment, rhonchi bilateral Cardiovascular: S1 S2 regular. No murmurs, rubs or gallops. Gastrointestinal: Abdomen soft, non-tender, non-distended. Normal bowel sounds.? Neurologic: Cranial nerves II-XII grossly intact. No focal neurological deficits. Moves all extremities spontaneously.? Skin: No rashes or lesions.? Musculoskeletal: No cyanosis or clubbing. Psychiatric: Normal mood and affect? Results Labs CBC and Chem 7: 06/17/21 21:23 06/17/21 21:33 Labs: Laboratory Results - last 24 hr 06/17/21 06/17/21 06/17/21 21:23 21:23 21:33 MCV 73.6 L MCH 21.4 L MCHC 29.1 L RDW 29.3 H Plt Count 287 MPV Not Reportable Immature Gran % (Auto) 1.0 H Neut % (Auto) 91.9 H Lymph % (Auto) 2.7 L [place] % (Auto) 4.2 Eos % (Auto) 0.1 Baso % (Auto) 0.1 Lymph # (Auto) 0.6 L [place] # (Auto) 1.0 Eos # (Auto) 0.0 Baso # (Auto) 0.0 Abs Immat Gran (auto) 0.23 H Absolute Neuts (auto) 21.1 H Absolute Nucleated RBC 0.020 H Nucleated RBC % (auto) 0.1 Smear Tech's Comments VERIFIED PT 23.1 H INR 2.0 H APTT 28.4 D-Dimer High Sensitivty 361 VBG pH VBG pCO2 VBG pO2 VBG HCO3 VBG O2 Saturation VBG Base Excess Anion Gap 12 Estim Creat Clear Calc 70.2 Estimated GFR > 60 Random Glucose 74 Lactic Acid Calcium 9.0 Total Bilirubin 0.9 Direct Bilirubin 0.3 AST 17 ALT 18 Alkaline Phosphatase 124 H Troponin I High Sens Total Protein 5.6 L Albumin 3.3 L 06/17/21 06/17/21 06/17/21 21:33 21:37 21:53 MCV MCH MCHC RDW Plt Count MPV Immature Gran % (Auto) Neut % (Auto) Lymph % (Auto) [place] % (Auto) Eos % (Auto) Baso % (Auto) Lymph # (Auto) [place] # (Auto) Eos # (Auto) Baso # (Auto) Abs Immat Gran (auto) Absolute Neuts (auto) Absolute Nucleated RBC Nucleated RBC % (auto) Smear Tech's Comments PT INR APTT D-Dimer High Sensitivty VBG pH 7.48 H VBG pCO2 38 VBG pO2 141 VBG HCO3 28 H VBG O2 Saturation 99.0 VBG Base Excess 5.4 Anion Gap Estim Creat Clear Calc Estimated GFR Random Glucose Lactic Acid 0.9 Calcium Total Bilirubin Direct Bilirubin AST ALT Alkaline Phosphatase Troponin I High Sens 11.8 D Total Protein Albumin Imaging Radiologist's Impressions: Impressions Chest X-Ray 06/17/21 22:03 IMPRESSION: No significant change from prior study. Persistent airspace consolidation in the region of the right middle and bilateral lower lobes. Chest CTA 06/18/21 00:56 IMPRESSION: 1. Subsegmental right middle lobe pulmonary emboli. 2. Worsening bilateral lower lobe consolidations compared to prior. Impacted airways are also noted in the lower lobes, and findings could be due to aspiration. 3. Extensive upper lobe predominant emphysema. 4. Redemonstrated thrombus in the proximal left subclavian artery. 5. Large hiatal hernia. VTE: negative This critical result was discussed with Dr. Clarissa Serrano on 06/18/2021 1:29 AM, and it was ascertained that the content and urgency of the report was understood at the time of direct communication. Assessment and Plan (1) Pulmonary air embolism: Status: Acute (2) COPD (chronic obstructive pulmonary disease): Status: Acute (3) Respiratory failure: Status: Acute (4) Pneumonia: Status: Acute (5) Subclavian artery thrombosis: Status: Acute 76-year-old female with a past medical history of rheumatoid arthritis, tobacco dependence, vertebral compression fracture, chronic back pain, iron deficiency anemia, history of recurrent UTIs, history of diastolic heart failure, COPD, ILD, chronic respiratory failure on 4 L of home oxygen, history of left lower extremity DVT and had been on Eliquis. 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 She left AMA on 06/16/21 because I was worry about my cat . She comes back today with increasing shortness of breath and found by EMS to be severely hypoxic with oxygen saturation in the 60s on 4 liters. CTA of chest shows Subsegmental right middle lobe pulmonary emboli. 2.? Worsening bilateral lower lobe consolidations compared to prior. 1/Acute on chronic hypoxic respiratoy failure d/t copd exacerbation, aspiration penumonia and pulmonary embolism -Adress underlying issues as below -O2 to treat hypoxia -repeat covid -Morphine PRN for respiratory distresss 2/Pulmonay embolis, and subclvian artery clot..unclear if she took eliquis upon discharge -Heparin drip as started in ED and ultimately to NOAC of coumadin -consider heme consult 3/ Aspiration pneumonia, meets sepsis criteria (no severe feature--elevated INR d/t anticoagulation -treat angus Santos Augmentin at disscharge. 4/COPD with exacerbation -Bronchodilators by Neb, Solumedrol 5/mild protein calory malnutrition--consider Ensure 6/History of rheumatoid arthritis: Methotreaxate 7/History of chronic back pain/vertebral compression fractures:? Pain control. 8History of DVT: Patient currently on heparin drip.? Home Eliquis held. 9/History of dysphagia: Patient was on pureed diet.? Quality Stroke Does the patient have a stroke diagnosis?: No VTE Prior VTE?: Yes VTE Risk Level:: Medical - moderate - high VTE Device Contraindication: Treatment Not Tolerated VTE Drug Contraindication: N/A - Med Ordered
[2021-06-18] MEDS: LORazepam 2 MG/ML VIAL 1 MG IVPUSH (03:32)
--- NOTE | 2021-06-18 03:51 | PC.NURSE ---
Med Rec completed by pts most recent refills. Pt unable to participate in recollection.
[2021-06-18 04:19] LABS: COVID-19 Test Negative (Negative)
--- NOTE | 2021-06-18 04:37 | PC.NURSE ---
care from rn at 3am. Pt has already received 2 antibiotics IV. Orders for cultures not completed. 3rd antibiotic due now.
[2021-06-18] MEDS: methylPREDNISolone Sod Succ 40 MG/ML VIAL IVPUSH ×4 (05:01→21:20)
[2021-06-18] MEDS: Melatonin 3 MG TABLET 6 MG PO ×2 (05:01→21:54)
[2021-06-18] MEDS: Piperacillin Sodium/Tazobactam 4.5 GM in 0.9 % Sodium Chloride 100 ML IV (05:02)
[2021-06-18] MEDS: Zolpidem Tartrate 5 MG TABLET PO ×2 (05:02→21:54)
--- NOTE | 2021-06-18 05:53 | PC.NURSE ---
assisted pt with bed east x 2. Pt has requested jose c josh and ice water several times. Pt needs to be reminded to keep her nc in nose.
--- NOTE | 2021-06-18 07:15 | PC.NURSE ---
PT HAS BEEN EXPERIENCING ITCHING TO HER NOSE FROM HIGH FLOW FOR THE PAST 60-90 MINUTES. rt CALLED AND AWRE OF THE ISSUE. tHEY INSTRUCTED ME TO TAKE HER OFF HIGH FLOW AND PUT HER ON A NRB MASK, WHICH I DID. RT REPORTS THEY WILL BE TAMMI IN THE NEXT 15-20 MINUTES TO CHECK ON HER, AND SEE IF SHE CAN BE PLACED ON A REGULAR NC.
[2021-06-18] MEDS: Albuterol/Iprat 2.5/0.5MG 3 ML AMPUL.NEB INHALE ×3 (07:43→19:29)
--- NOTE | 2021-06-18 07:57 | PC.NURSE ---
Pt received: Pt Aox4 and very anxious and demanding. Pt constantly pulling off her n/c. RT made aware and pt placed on NRB. Pt still not tolerating. Pt given another chance with n/c in attempt for pt to eat her breakfast. Pt ordered for puree diet. Upon seeing tray, pt refused to eat any of it. MD Diaz aware. Pt NSR with rales and expi wheeze. Pt remains aspiration risk. Pt abd soft and non-tender. 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
[2021-06-18] MEDS: Folic Acid 1 MG TABLET PO ×2 (08:32→21:54)
[2021-06-18] MEDS: Omeprazole 40 MG CAPSULE.DR PO (08:33)
[2021-06-18] MEDS: Pregabalin 150 MG CAPSULE PO ×2 (08:33→21:55)
[2021-06-18 08:54] LABS: PTT Heparin Drip 33.3 SEC (53-77.9)
[2021-06-18] MEDS: Heparin Sodium,Porcine 5,000 UNIT/ML VIAL 4700 UNIT IVPUSH (09:25)
[2021-06-18] MEDS: Ampicillin Sodium/Sulbactam Na 3 GM in 0.9 % Sodium Chloride 100 ML IV ×2 (10:54→16:49)
--- NOTE | 2021-06-18 11:46 | HO.PM.IMPN ---
Subjective Subjective Date of Service: 06/19/21 Interval History: Acute hypoxemic respiratory failure secondary to multiple issues including aspiration pneumonia, PE Review of Systems Somewhat short of breath but could able to speak in full sentences, no accessory muscle use. Somewhat noncompliant with high-flow but when explained again and put her high-flow back staff is aware to check on her intermittently. Has cough, Denies any chest pain or abdominal pain or nausea or vomiting or dizziness or fever or chills. Physical Exam Vital Signs: Vital Signs: Last Vital Signs Temp 97.9 F 06/18/21 00:58 Pulse 77 06/18/21 11:18 Resp 20 06/18/21 11:29 BP 98/50 L 06/18/21 11:18 Pulse Ox 93 06/18/21 11:18 BMI result Body Mass Index 24.5 Physical exam: Appearance: Alert.? Oriented X3.? not in distress.? Eyes: Pupils equal, round and reactive to light.? Sclera nonicteric.?. cvs: rrr, [id number] , no murmur res: air entry slightly improving , still has rhonchi abd: no rebound or guarding ,nt, bs present. ext pulses present , no cyanosis ,Gait well balanced well coordinated. neuro: axo3 , nonfocal. Objective Data Active Medications Acetaminophen (Acetaminophen 325 Mg Tablet) 650 mg PO Q6H PRN PRN Reason: Pain, Mild (Pain Scale 1-3) Al Hydroxide/Mg Hydroxide (Magnesium Hydrox/Alum Hydrox 30 Ml Oral.Susp) 30 ml PO Q4H PRN PRN Reason: Heartburn/Nausea Albuterol Sulfate (Albuterol Sulfate (0.083%) 2.5 Mg/3 Ml Vial.Neb) 2.5 mg INHALE Q2H PRN PRN Reason: Shortness of Breath/Wheezing Albuterol/Ipratropium (Albuterol/Iprat 2.5/0.5mg 3 Ml Ampul.Neb) 3 ml INHALE RQ4H WHILE AWAKE [facility] Last Admin: 06/18/21 11:29 Dose: 3 ml Documented by: HEATHER Bisacodyl (Bisacodyl 5 Mg Tablet.) 10 mg PO BEDTIME LACEY Cyanocobalamin (Cyanocobalamin (Vitamin B-12) 1,000 Mcg Tablet) 1,000 mcg PO BEDTIME LACEY Docusate Sodium (Docusate Sodium 100 Mg Capsule) 100 mg PO BID [facility] Last Admin: 06/18/21 08:21 Dose: Not Given Documented by: LINH Non-Admin Reason: Patient Refused Folic Acid (Folic Acid 1 Mg Tablet) 1 mg PO BID [facility] Last Admin: 06/18/21 08:32 Dose: 1 mg Documented by: LINH Heparin Sodium (Porcine) (Heparin Sodium,Porcine 5,000 Unit/Ml Vial) 2,400 unit 40 unit/kg (2400 unit) IVPUSH PROTOCOL BOLUS PRN; Protocol PRN Reason: 40 unit/kg - Heparin Protocol Heparin Sodium (Porcine) (Heparin Sodium,Porcine 5,000 Unit/Ml Vial) 4,700 unit 80 unit/kg (4700 unit) IVPUSH PROTOCOL BOLUS PRN; Protocol PRN Reason: 80 unit/kg - Heparin Protocol Last Admin: 06/18/21 09:25 Dose: 4,700 unit Documented by: LINH Heparin Sodium/Sodium Chloride () 25,000 unit in 250 mls @ 0 mls/hr IVCONT .Q0M [facility]; Protocol Last Titration: 06/18/21 09:28 Dose: 30.53 units/kg/hr, 18 mls/hr Documented by: LINH Cosigned by: JESUS Ampicillin Sodium/Sulbactam (Sodium 3 gm/ Sodium Chloride) 100 mls @ 200 mls/hr IV Q6H [facility] Last Infusion: 06/18/21 11:22 Dose: 0 mls/hr Documented by: LINH Lorazepam (Lorazepam 1 Mg Tablet) 1 mg PO DAILY PRN PRN Reason: Anxiety Melatonin (Melatonin 3 Mg Tablet) 6 mg PO BEDTIME PRN PRN Reason: Insomnia Last Admin: 06/18/21 05:01 Dose: 6 mg Documented by: KAY Methotrexate (Methotrexate Sodium 2.5 Mg Tablet) 10 mg PO SA@0900 [facility] Methylprednisolone Sodium Succinate (Methylprednisolone Sod Succ 40 Mg/Ml Vial) 40 mg IVPUSH Q6H [facility] Last Admin: 06/18/21 08:33 Dose: 40 mg Documented by: LINH Nicotine (Nicotine 14 Mg Patch.Td24) 14 mg TRANSDERMA DAILY [facility] Last Admin: 06/18/21 08:26 Dose: Not Given Documented by: LINH Non-Admin Reason: Patient Refused Non-Formulary Medication (Linaclotide [Linzess]) 290 mcg PO BEDTIME [facility] Non-Formulary Medication (Risedronate) 1 tab PO .QMONTH [facility] Non-Formulary Medication (Umeclidinium-Vilanterol [Anoro Ellipta]) 1 inhalation INHALE DAILY [facility] Omeprazole (Omeprazole 40 Mg Capsule.Dr) 40 mg PO DAILY@0630 [facility] Last Admin: 06/18/21 08:33 Dose: 40 mg Documented by: LINH Ondansetron HCl (Ondansetron Hcl 4 Mg/2 Ml Vial) 4 mg IVPUSH Q8H PRN PRN Reason: Nausea and Vomiting Pregabalin (Pregabalin 150 Mg Capsule) 150 mg PO TID [facility] Last Admin: 06/18/21 08:33 Dose: 150 mg Documented by: LINH Sodium Chloride (0.9 % Sodium Chloride Flush 3 Ml Syringe) 3 ml IVFLUSH QSHIFT [facility] Last Admin: 06/18/21 07:06 Dose: Not Given Documented by: LINH Non-Admin Reason: Med Not Available Zolpidem Tartrate (Zolpidem Tartrate 5 Mg Tablet) 5 mg PO BEDTIME PRN PRN Reason: Insomnia Last Admin: 06/18/21 05:02 Dose: 5 mg Documented by: KAY Labs CBC & Chem 7: 06/19/21 07:48 06/19/21 07:48 Labs: Laboratory Results - last 24 hr 06/17/21 06/17/21 06/17/21 21:23 21:23 21:33 MCV 73.6 L MCH 21.4 L MCHC 29.1 L RDW 29.3 H Plt Count 287 MPV Not Reportable Immature Gran % (Auto) 1.0 H Neut % (Auto) 91.9 H Lymph % (Auto) 2.7 L [place] % (Auto) 4.2 Eos % (Auto) 0.1 Baso % (Auto) 0.1 Lymph # (Auto) 0.6 L [place] # (Auto) 1.0 Eos # (Auto) 0.0 Baso # (Auto) 0.0 Abs Immat Gran (auto) 0.23 H Absolute Neuts (auto) 21.1 H Absolute Nucleated RBC 0.020 H Nucleated RBC % (auto) 0.1 Smear Tech's Comments VERIFIED PT 23.1 H INR 2.0 H APTT 28.4 PTT (Heparin Protocol) D-Dimer High Sensitivty 361 VBG pH VBG pCO2 VBG pO2 VBG HCO3 VBG O2 Saturation VBG Base Excess Anion Gap 12 Estim Creat Clear Calc 70.2 Estimated GFR > 60 Random Glucose 74 Lactic Acid Calcium 9.0 Total Bilirubin 0.9 Direct Bilirubin 0.3 AST 17 ALT 18 Alkaline Phosphatase 124 H Troponin I High Sens Total Protein 5.6 L Albumin 3.3 L COVID-19 ([facility]) COVID-19 Clin Com 06/17/21 06/17/21 06/17/21 21:33 21:37 21:53 MCV MCH MCHC RDW Plt Count MPV Immature Gran % (Auto) Neut % (Auto) Lymph % (Auto) [place] % (Auto) Eos % (Auto) Baso % (Auto) Lymph # (Auto) [place] # (Auto) Eos # (Auto) Baso # (Auto) Abs Immat Gran (auto) Absolute Neuts (auto) Absolute Nucleated RBC Nucleated RBC % (auto) Smear Tech's Comments PT INR APTT PTT (Heparin Protocol) D-Dimer High Sensitivty VBG pH 7.48 H VBG pCO2 38 VBG pO2 141 VBG HCO3 28 H VBG O2 Saturation 99.0 VBG Base Excess 5.4 Anion Gap Estim Creat Clear Calc Estimated GFR Random Glucose Lactic Acid 0.9 Calcium Total Bilirubin Direct Bilirubin AST ALT Alkaline Phosphatase Troponin I High Sens 11.8 D Total Protein Albumin COVID-19 ([facility]) COVID-19 Clin Com 06/18/21 06/18/21 03:57 08:24 MCV MCH MCHC RDW Plt Count MPV Immature Gran % (Auto) Neut % (Auto) Lymph % (Auto) [place] % (Auto) Eos % (Auto) Baso % (Auto) Lymph # (Auto) [place] # (Auto) Eos # (Auto) Baso # (Auto) Abs Immat Gran (auto) Absolute Neuts (auto) Absolute Nucleated RBC Nucleated RBC % (auto) Smear Tech's Comments PT INR APTT PTT (Heparin Protocol) 33.3 L D-Dimer High Sensitivty VBG pH VBG pCO2 VBG pO2 VBG HCO3 VBG O2 Saturation VBG Base Excess Anion Gap Estim Creat Clear Calc Estimated GFR Random Glucose Lactic Acid Calcium Total Bilirubin Direct Bilirubin AST ALT Alkaline Phosphatase Troponin I High Sens Total Protein Albumin COVID-19 ([facility]URENT) Negative COVID-19 Clin Com See Note Assessment and Plan (1) Pulmonary embolism: Status: Acute (2) COPD (chronic obstructive pulmonary disease): Status: Acute Assessment and Plan: 76-year-old female with a past medical history of rheumatoid arthritis, tobacco dependence, vertebral compression fracture, chronic back pain, iron deficiency anemia, history of recurrent UTIs, history of diastolic heart failure, COPD, ILD, chronic respiratory failure on 4 L of home oxygen, history of left lower extremity DVT? and had been on Eliquis. 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 She left AMA on 06/16/21 because I was worry about my cat . She comes back today with increasing shortness of breath and found by EMS to be severely hypoxic with oxygen saturation in the 60s on 4 liters.? CTA of chest shows?Subsegmental right middle lobe pulmonary emboli. 2.? Worsening bilateral lower lobe consolidations compared to prior. 1/Acute on chronic hypoxic respiratoy failure d/t copd exacerbation, aspiration penumonia and pulmonary embolism -Adress underlying issues as below -O2 to treat hypoxia -repeat covid neg -Morphine PRN for respiratory distresss change to unasyn , AC pulm eval-for pulm embolism/aspirational pneumonia No sepsis-because tachypnea and tachycardia probably related to pulmonary embolism. And lactic acidosis related to nebs use. 2/Pulmonay embolis, and subclvian artery clot..unclear if she took eliquis upon discharge -Heparin drip as started in ED and ultimately to NOAC of coumadin -consider heme consult 3/ Aspiration pneumonia, meets sepsis criteria (no severe feature--elevated INR d/t anticoagulation -treat unasyn, Augmentin at disscharge. 4/COPD with exacerbation -Bronchodilators by Neb, Solumedrol 5/mild protein calory malnutrition--consider Ensure 6/History of rheumatoid arthritis: Methotreaxate 7/History of chronic back pain/vertebral compression fractures:? Pain control. 8History of DVT: Patient currently on heparin drip.? Home Eliquis held. 9/History of dysphagia: Patient was on pureed diet.? Quality Stroke Does the patient have a stroke diagnosis?: No VTE Prior VTE?: Yes VTE Risk Level:: Medical - moderate - high VTE Device Contraindication: Treatment Not Tolerated VTE Drug Contraindication: N/A - Med Ordered
[2021-06-18 14:10] LABS: ABG Base Excess 4.1 mmol/L; ABG HCO3 27 mmol/L (22-26); ABG pCO2 34 mmHg (32-45); ABG pH 7.49 (7.35-7.45); ABG pO2 36 mmHg (83-108)
[2021-06-18 15:06] LABS: MANUAL DIFF FLAG NO
[2021-06-18 15:07] LABS: Basophils Percent Auto 0.1 % (0-2); Red Cell Distribution Width 29.4 % (11.0-16.0); SCAN SMEAR FLAG 1
[2021-06-18 15:09] LABS: Hematocrit 33.6 % (37.0-47.0); Hemoglobin 9.5 g/dl (12.0-16.0); Imm Gran Abs Auto 0.13 X10*3/uL (0.00-0.03); Imm Gran Pct Auto 0.9 % (0.0-0.4); Lymphocytes Absolute Auto 0.5 X10*3/uL (1.2-4.9); Lymphocytes Percent Auto 3.4 % (20-40); Mean Corpuscular HGB Conc 28.3 g/dl (31.0-35.0); Mean Corpuscular Hemoglobin 21.2 pg (27.0-33.0); Mean Platelet Volume 10.3 fL (9.4-12.3); Monocytes Absolute Auto 0.4 X10*3/uL (0.1-1.2); Monocytes Percent Auto 2.6 % (2-11); Neutrophils Absolute Auto 12.7 x10*3/uL (2.0-8.3); Platelet Count 294 X10*3/uL (160-400); Red Blood Count 4.48 X10*6/uL (4.20-5.50); White Blood Count 13.7 X10*3/uL (4.8-10.8)
[2021-06-18 15:10] LABS: Venous Blood Gas Refer to POC result
[2021-06-18 15:10] LABS: VBG HCO3 24 mmol/L (22-26); VBG pCO2 35 mmHg; VBG pH 7.44 (7.32-7.43); VBG pO2 32 mmHg
[2021-06-18 15:12] LABS: ABG Refer to POC result
[2021-06-18 15:12] LABS: PLT ABN DIST 1
--- NOTE | 2021-06-18 15:17 | PC.NURSE ---
Pt noted to be severely hypoxic when checking standard vitals. O2 noted to be 50-60% on high flow. MD Diaz made aware and at bedside. New orders received for ABG and for registered clinical dietitian consult. ABG results showcase similar oxygen situation as pulse ox. [employer] MD Fraga at bedside, requested endotracheal suction N/C, and pt now O2 at 95% on 4L N/L. All other forms of oxygen now D/C. MD Diaz aware of pt status clinically.
[2021-06-18 15:18] LABS: PTT Heparin Drip 77.2 SEC (53-77.9)
[2021-06-18 15:24] LABS: Anion Gap 11 (12-20); Blood Urea Nitrogen 9 mg/dL (9-16); Calcium 8.5 mg/dL (8.4-10.2); Carbon Dioxide 29 mmol/L (22-29); Chloride 107 mmol/L (96-108); Creatinine Clr Calc Pharmacy 65.6; Estimated Glomerular Filt Rate > 60; Glucose Random 185 mg/dL (60-115); Potassium 4.1 mmol/L (3.3-5.1); Sodium 143 mmol/L (135-145)
[2021-06-18 15:26] LABS: Lactic Acid 3.9 mmol/L (0.5-2.0)
--- NOTE | 2021-06-18 15:26 | PM.CNPUL ---
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 Patient has had CT angiogram the demonstrated segmental pulmonary emboli, however significant underlying emphysema and large hiatal hernia, also known subclavian artery thrombus. Patient has been started on empiric broad-spectrum antibiotics. She has episodes of hypoxia for which she recovers with cough and clearing of respiratory secretions. Review of Systems Constitutional: Constitutional: Denies daytime sleepiness, Denies excessive sweating, Denies fatigue, Denies fever(s), Denies lethargy, Denies malaise, Denies night sweats, Denies snoring and Denies weight loss Eyes: Eyes: Denies blurry vision and Denies itchy eyes ENT: Denies nasal congestion, Denies post nasal drip, Denies sinus pain, Denies sinus pressure and Denies other ( Thrush) Cardiovascular: Cardiovascular: Denies chest pain, Denies pedal edema, Reports dyspnea, Denies orthopnea and Denies paroxysmal nocturnal dyspnea Respiratory: Respiratory: Denies cough, Denies hemoptysis, Denies excessive phlegm production, Reports dyspnea, Denies snoring and Denies wheezing Gastrointestinal: Gastrointestinal: Denies abdominal pain and Denies heartburn Musculoskeletal: Musculoskeletal: Denies myalgias, Denies arthralgias and Denies joint swelling Integumentary/Breasts: Skin/Breast: Denies rash Neurologic: Denies memory loss and Denies seizure-like activity Psychiatric: Psychiatric: Denies abnormal sleep pattern, Denies anxiety and Denies memory loss Endocrine: Endocrine: Denies excessive sweating, Denies fatigue and Denies heat intolerance Hematologic/Lymphatic: Hematologic/Lymphatic: Denies easy bruising Allergic/Immunologic: Allergic/Immunologic: Denies itchy eyes, Denies seasonal rhinorrhea and Denies wheezing PMFSH Past Medical History Medical History Bipolar disorder Chronic idiopathic constipation Chronic respiratory failure with hypoxia Compression fracture of T9 vertebra COPD (chronic obstructive pulmonary disease) DVT (deep venous thrombosis) DVT (deep venous thrombosis) Hiatal hernia Hiatal hernia History of diverticulitis History of treatment for tuberculosis Interstitial lung disease Iron deficiency anemia Left rib fracture Opioid abuse Peripheral neuropathy Rash Rheumatoid arthritis Rib pain on left side Rib pain on right side Surgical History Surgical History H/O colonoscopy H/O esophagogastroduodenoscopy Social History Social History Household Members: None Housing: House Do you presently have visiting nurse or other home services: No Alcohol intake: unknown Patient Tobacco Use Status: Current everyday Tobacco user Tobacco use type: Cigarette Use of substances other than those prescribed or required for medical reasons: No Advance Directives: No service: No Current occupational status: retired Meds Allergies Allergy/AdvReac Type Severity Reaction Status Date / Time loratadine [From CLARITIN] Allergy Unknown MOUTH SORE Verified 06/13/21 07:09 Active Medications: Current Medications Acetaminophen (Acetaminophen 325 Mg Tablet) 650 mg PO Q6H PRN PRN Reason: Pain, Mild (Pain Scale 1-3) Al Hydroxide/Mg Hydroxide (Magnesium Hydrox/Alum Hydrox 30 Ml Oral.Susp) 30 ml PO Q4H PRN PRN Reason: Heartburn/Nausea Albuterol Sulfate (Albuterol Sulfate (0.083%) 2.5 Mg/3 Ml Vial.Neb) 2.5 mg INHALE Q2H PRN PRN Reason: Shortness of Breath/Wheezing Albuterol/Ipratropium (Albuterol/Iprat 2.5/0.5mg 3 Ml Ampul.Neb) 3 ml INHALE RQ4H WHILE AWAKE [facility] Last Admin: 06/18/21 11:29 Dose: 3 ml Documented by: Bisacodyl (Bisacodyl 5 Mg Tablet.) 10 mg PO BEDTIME [facility] Cyanocobalamin (Cyanocobalamin (Vitamin B-12) 1,000 Mcg Tablet) 1,000 mcg PO BEDTIME [facility] Docusate Sodium (Docusate Sodium 100 Mg Capsule) 100 mg PO BID [facility] Last Admin: 06/18/21 08:21 Dose: Not Given Documented by: Folic Acid (Folic Acid 1 Mg Tablet) 1 mg PO BID [facility] Last Admin: 06/18/21 08:32 Dose: 1 mg Documented by: Heparin Sodium (Porcine) (Heparin Sodium,Porcine 5,000 Unit/Ml Vial) 2,400 unit 40 unit/kg (2400 unit) IVPUSH PROTOCOL BOLUS PRN; Protocol PRN Reason: 40 unit/kg - Heparin Protocol Heparin Sodium (Porcine) (Heparin Sodium,Porcine 5,000 Unit/Ml Vial) 4,700 unit 80 unit/kg (4700 unit) IVPUSH PROTOCOL BOLUS PRN; Protocol PRN Reason: 80 unit/kg - Heparin Protocol Last Admin: 06/18/21 09:25 Dose: 4,700 unit Documented by: Heparin Sodium/Sodium Chloride () 25,000 unit in 250 mls @ 0 mls/hr IVCONT .Q0M [facility]; Protocol Last Titration: 06/18/21 09:28 Dose: 30.53 units/kg/hr, 18 mls/hr Documented by: Ampicillin Sodium/Sulbactam (Sodium 3 gm/ Sodium Chloride) 100 mls @ 200 mls/hr IV Q6H [facility] Last Infusion: 06/18/21 11:22 Dose: Infused Documented by: Lorazepam (Lorazepam 1 Mg Tablet) 1 mg PO DAILY PRN PRN Reason: Anxiety Melatonin (Melatonin 3 Mg Tablet) 6 mg PO BEDTIME PRN PRN Reason: Insomnia Last Admin: 06/18/21 05:01 Dose: 6 mg Documented by: Methotrexate (Methotrexate Sodium 2.5 Mg Tablet) 10 mg PO SA@0900 [facility] Methylprednisolone Sodium Succinate (Methylprednisolone Sod Succ 40 Mg/Ml Vial) 40 mg IVPUSH Q6H [facility] Last Admin: 06/18/21 08:33 Dose: 40 mg Documented by: Nicotine (Nicotine 14 Mg Patch.Td24) 14 mg TRANSDERMA DAILY [facility] Last Admin: 06/18/21 08:26 Dose: Not Given Documented by: Non-Formulary Medication (Linaclotide [Linzess]) 290 mcg PO BEDTIME [facility] Non-Formulary Medication (Risedronate) 1 tab PO .QMONTH [facility] Non-Formulary Medication (Umeclidinium-Vilanterol [Anoro Ellipta]) 1 inhalation INHALE DAILY [facility] Omeprazole (Omeprazole 40 Mg Capsule.Dr) 40 mg PO DAILY@0630 [facility] Last Admin: 06/18/21 08:33 Dose: 40 mg Documented by: Ondansetron HCl (Ondansetron Hcl 4 Mg/2 Ml Vial) 4 mg IVPUSH Q8H PRN PRN Reason: Nausea and Vomiting Pregabalin (Pregabalin 150 Mg Capsule) 150 mg PO TID [facility] Last Admin: 06/18/21 14:23 Dose: Not Given Documented by: Sodium Chloride (0.9 % Sodium Chloride Flush 3 Ml Syringe) 3 ml IVFLUSH QSHIFT [facility] Last Admin: 06/18/21 07:06 Dose: Not Given Documented by: Zolpidem Tartrate (Zolpidem Tartrate 5 Mg Tablet) 5 mg PO BEDTIME PRN PRN Reason: Insomnia Last Admin: 06/18/21 05:02 Dose: 5 mg Documented by: Home Medications Medication Instructions Recorded Confirmed Last Taken Type cyanocobalamin (vitamin B-12) 1,000 mcg PO BEDTIME 03/31/21 06/18/21 05/17/21 History 1,000 mcg tablet docusate sodium 100 mg capsule 100 mg PO BID 03/31/21 06/18/21 05/17/21 History folic acid 1 mg tablet 1 mg PO BID 03/31/21 06/18/21 05/17/21 History methotrexate sodium 2.5 mg tablet 10 mg PO SA@0900 03/31/21 06/18/21 05/13/21 History omeprazole 40 mg capsule,delayed 40 mg PO DAILY@0630 03/31/21 06/18/21 05/17/21 History release oxycodone 5 mg tablet 5 mg PO TID PRN 03/31/21 06/18/21 03/30/21 History umeclidinium 62.5 mcg-vilanterol 1 inh INHALATION DAILY 03/31/21 06/18/21 05/17/21 History 25 mcg/actuation powdr for inhalation (Anoro Ellipta) linaclotide 290 mcg capsule 290 mcg PO BEDTIME 05/18/21 06/18/21 05/17/21 History (Linzess) pregabalin 150 mg capsule 150 mg PO TID 05/18/21 06/18/21 05/17/21 History risedronate 150 mg tablet 1 tab PO QMONTH 05/18/21 06/18/2121 History zolpidem 5 mg tablet 5 mg PO BEDTIME PRN 05/18/21 06/18/21 Unknown History lorazepam 1 mg tablet 1 mg PO DAILY PRN 06/11/21 06/18/21 Unknown History prednisone 20 mg tablet 10 mg PO DAILY 06/11/21 06/18/21 Unknown History Physical Exam Vital Signs: Vital Signs: Last Vital Signs Temp 97.9 F 06/18/21 00:58 Pulse 77 06/18/21 11:18 Resp 20 06/18/21 11:29 BP 98/50 L 06/18/21 11:18 Pulse Ox 93 06/18/21 11:18 BMI result Body Mass Index 24.5 Const: General: no acute distress, alert and awake Eyes: Sclerae: sclerae normal EOM: EOMs intact bilaterally Neck: Neck: Yes no lymphadenopathy, Yes trachea midline and Yes supple Resp: Effort & Inspection: normal respiratory effort and no respiratory distress Auscultation: crackles (Bibasilar) Cardio: Rate: regular rate Rhythm: regular rhythm Heart sounds: no gallops, no murmurs and no rubs GI: Palpation (GI): Soft to palpation and Other GI palpation findings present ( Nontender) Auscultation: normal bowel sounds Extrem: General: Yes no pedal edema, No clubbing and No cyanosis Results Laboratory Findings CBC and BMP: 06/18/21 15:01 06/18/21 15:01 ABG, PT/INR, D-dimer: PT/INR, D-dimer PT 23.1 SEC (9.9-13.0) H 06/17/21 21:23 INR 2.0 (0.9-1.1) H 06/17/21 21:23 Abnormal lab findings: Abnormal Labs 06/17/21 06/17/21 06/17/21 21:23 21:23 21:33 WBC 23.0 H Hgb 10.2 L Hct 35.1 L MCV 73.6 L MCH 21.4 L MCHC 29.1 L RDW 29.3 H Immature Gran % (Auto) 1.0 H Neut % (Auto) 91.9 H Lymph % (Auto) 2.7 L Lymph # (Auto) 0.6 L Abs Immat Gran (auto) 0.23 H Absolute Neuts (auto) 21.1 H Absolute Nucleated RBC 0.020 H PT 23.1 H INR 2.0 H PTT (Heparin Protocol) ABG pH at Pt Temp ABG pO2 at Pt Temp ABG HCO3 VBG pH VBG HCO3 Anion Gap Random Glucose Alkaline Phosphatase 124 H Total Protein 5.6 L Albumin 3.3 L 06/17/21 06/18/21 06/18/21 21:37 08:24 14:02 WBC Hgb Hct MCV MCH MCHC RDW Immature Gran % (Auto) Neut % (Auto) Lymph % (Auto) Lymph # (Auto) Abs Immat Gran (auto) Absolute Neuts (auto) Absolute Nucleated RBC PT INR PTT (Heparin Protocol) 33.3 L ABG pH at Pt Temp 7.49 H ABG pO2 at Pt Temp 36 L* ABG HCO3 27 H VBG pH 7.48 H VBG HCO3 28 H Anion Gap Random Glucose Alkaline Phosphatase Total Protein Albumin 06/18/21 06/18/21 06/18/21 15:01 15:01 15:05 WBC 13.7 H Hgb 9.5 L Hct 33.6 L MCV 75.0 L MCH 21.2 L MCHC 28.3 L RDW 29.4 H Immature Gran % (Auto) 0.9 H Neut % (Auto) 93.0 H Lymph % (Auto) 3.4 L Lymph # (Auto) 0.5 L Abs Immat Gran (auto) 0.13 H Absolute Neuts (auto) 12.7 H Absolute Nucleated RBC PT INR PTT (Heparin Protocol) ABG pH at Pt Temp ABG pO2 at Pt Temp ABG HCO3 VBG pH 7.44 H VBG HCO3 Anion Gap 11 L Random Glucose 185 H Alkaline Phosphatase Total Protein Albumin Assessment and Plan (1) COPD (chronic obstructive pulmonary disease): Status: Acute (2) Recurrent aspiration pneumonia: Status: Acute (3) Acute and chronic respiratory failure with hypoxia: Status: Acute (4) Pulmonary embolism: Status: Acute Impression: 76-year-old lady with underlying end-stage COPD on 4 L of supplemental O2 at home, also large hiatal hernia with recurrent aspirations non operative per prior thoracic evaluation, ILD readmitted after leaving against medical advice with worsening hypoxia and recurrent aspirations. Recommendations: Agree with nebulized bronchodilators, does not require systemic glucocorticoids. Agree with Unasyn coverage for underlying recurrent at pulmonary aspirations. Requires q.4 hours chest physiotherapy and nasotracheal suctioning and aspiration precautions. Procedures Date of Service Date of Service: 06/18/21
--- NOTE | 2021-06-18 15:40 | PC.NURSE ---
MD Fraga also made aware of pt's recent lactic acid of 3.9. No further orders received.
[2021-06-18 15:44] LABS: Procalcitonin 0.06 ng/mL
[2021-06-18 17:04] LABS: Reflex Lactate? Lactic Acid Added
[2021-06-18] MEDS: Famotidine/PF 20 MG/2 ML VIAL IVPUSH ×2 (17:23→21:20)
[2021-06-18 17:42] LABS: ~Lactic Acid-LAB USE ONLY 2.1 mmol/L (0.5-2.0)
[2021-06-18 19:29] LABS: Reflex Lactate? 2 Y
[2021-06-18 21:01] LABS: PTT Heparin Drip 38.4 SEC (53-77.9)
[2021-06-18 21:03] LABS: ~Lactic Acid-LAB USE ONLY 1.7 mmol/L (0.5-2.0)
[2021-06-18] MEDS: Cyanocobalamin (Vitamin B-12) 1,000 MCG TABLET 1000 MCG PO (21:54)
[2021-06-18] MEDS: bisacodyL 5 MG TABLET.DR 10 MG PO (21:54)
[2021-06-18] MEDS: Docusate Sodium 100 MG CAPSULE PO (21:56)
--- NOTE | 2021-06-18 22:00 | PC.NURSE ---
Per Dr. Mejia, pt ok to have PO meds Pt frustrated over not eating all day. Pt requesting all medications Pt verbally abusive to staff
[2021-06-19] VITALS (8 sets, daily range): BP systolic 114–156; BP diastolic 69–92; PULSE 71–100; RESP 16–29; TEMP 36.9; O2SAT 86–100
[2021-06-19] MEDS: Ampicillin Sodium/Sulbactam Na 3 GM in 0.9 % Sodium Chloride 100 ML IV ×4 (01:12→20:22)
[2021-06-19] MEDS: Heparin Sodium,Porcine/1/2NS 25,000 UNIT/250 ML IV.SOLN 10.61 UNIT IVCONT (01:14)
[2021-06-19] MEDS: Heparin Sodium,Porcine 5,000 UNIT/ML VIAL 2400 UNIT IVPUSH (01:19)
[2021-06-19] MEDS: methylPREDNISolone Sod Succ 40 MG/ML VIAL IVPUSH ×4 (05:50→21:54)
--- NOTE | 2021-06-19 06:49 | PHA.MEDREC ---
Pharmacy Consult ? Medication Reconciliation Pharmacy has reviewed the medication reconciliation completed by RN. Patient left AMA on 06/16/2021 and was in the ED the next day. Nothing has change from previous med rec besides Augmentin and prednisone prescribed by Dr Diaz on discharge.. Lakeisha Lindsey, PharmD
[2021-06-19] MEDS: Albuterol/Iprat 2.5/0.5MG 3 ML AMPUL.NEB INHALE ×4 (07:26→20:24)
[2021-06-19 08:01] LABS: Hematocrit 35.2 % (37.0-47.0); Hemoglobin 9.9 g/dl (12.0-16.0); Mean Corpuscular HGB Conc 28.1 g/dl (31.0-35.0); Mean Corpuscular Hemoglobin 21.3 pg (27.0-33.0); Mean Corpuscular Volume 75.9 fL (80.0-98.0); Mean Platelet Volume 10.1 fL (9.4-12.3); Platelet Count 326 X10*3/uL (160-400); Red Blood Count 4.64 X10*6/uL (4.20-5.50); Red Cell Distribution Width 29.7 % (11.0-16.0); White Blood Count 14.9 X10*3/uL (4.8-10.8)
[2021-06-19 08:13] LABS: PTT Heparin Drip 65.2 SEC (53-77.9)
[2021-06-19] MEDS: Pregabalin 150 MG CAPSULE PO ×3 (08:48→20:18)
[2021-06-19] MEDS: Famotidine/PF 20 MG/2 ML VIAL IVPUSH ×2 (08:48→20:18)
[2021-06-19] MEDS: Folic Acid 1 MG TABLET PO ×2 (08:48→20:18)
[2021-06-19 08:49] LABS: Anion Gap 11 (12-20); Blood Urea Nitrogen 11 mg/dL (9-16); Calcium 9.1 mg/dL (8.4-10.2); Carbon Dioxide 29 mmol/L (22-29); Chloride 108 mmol/L (96-108); Creatinine Clr Calc Pharmacy 70.2; Estimated Glomerular Filt Rate > 60; Glucose Random 105 mg/dL (60-115); Potassium 4.2 mmol/L (3.3-5.1); Sodium 144 mmol/L (135-145)
--- NOTE | 2021-06-19 10:04 | PC.NURSE ---
0800: Pt received from cage shift manager-- Pt remains aoX4 and states she is hungru. Pt remains NPO except ice chips and medication. Pt pending swallow eval. MD Diaz already at bedside for morning rounds. New IV placed in RAC and heparin drip changed to run through this site. NSR rhythm noted on monitor with rales and wheeze ausculated wihtin lungs. Pt on venti mask as per respiratory therapist nahum. Pt abd flat and non-tender. Generalized bruising noted to frequent blood work.
--- NOTE | 2021-06-19 10:07 | PC.NURSE ---
Pt remains on 20U/kg/min heparin drip from artillery or naval gunfire observer. With current PTT with 60's, pt's drip remains unchanged.
--- NOTE | 2021-06-19 11:39 | PC.NURSE ---
Pt noted to have pulled out newly placed RAC 22g from this morning. airline hostess Shanna made and she will attempt to place another IV. RN will continue to monitor. Pt now placed on 10L huddson as per respiratory therapist.
--- NOTE | 2021-06-19 11:53 | PC.NURSE ---
Pending swallow evaluation. Swallow eval called and stated tat they are currently trying to catch up on other admitted pts. Unknown when pt will receive evaluation. MD Diaz made aware.
--- NOTE | 2021-06-19 12:09 | MHC.CDI.CONC ---
CDI Concurrent Query Documentation Clarification: PHYSICIAN'S DOCUMENTATION REQUEST Date of Query: 06/19/21 1209 Patient Name: Elmira Bingham Admit Date: 06/18/21 Dear Doctor, A review of the medical record indicates additional documentation may be needed. Please review below and update the documentation accordingly. Clinical Indicators: Risk Factors/Clinical Indicators/Treatments ED: 1/ - sepsis is not suspected H&P: 1/2 - meets sepsis criteria, no severe features. Zosyn, Albuterol, oxygen for the acute hypoxic respiratory failure. PN: 1/ - Aspiration pneumonia, meets sepsis criteria. WBC 14.9 LA 3.9 RR 24 HR 108 Based on the above, could you clarify in the Progress Notes the appropriate diagnosis, if significant, that supports the above abnormalities and additional evaluation, monitoring, and/or treatment rendered: Sepsis due to an infectious etiology Other (please specify) Unable to determine Use of terms such as suspected, likely, concern for, or probable (associated with a specific diagnosis that is being evaluated, monitored, or treated as if it exists) are acceptable and can be coded in the inpatient setting, when documented at the time of discharge. Thank you, Iqra Smith [facility], CDIS Extension: [phone] Please use your independent medical judgment in providing your response. THIS QUERY IS PART OF THE PERMANENT MEDICAL RECORD Provider Response: Other Other Diagnosis: sepsis not suspected
--- NOTE | 2021-06-19 12:37 | PC.NURSE ---
Speech and swallow eval now at bedside
--- NOTE | 2021-06-19 12:57 | MHC.CM.PN ---
CM MET WITH PT IN ED01 PT LEFT AMA ON 06/16/21 AND REPORTS SHE WAS ONLY HOME A COUPLE HOURS BEFORE SHE HAD TO CALL THE AMBULANCE TO RETURN. PT LIVES ALONE AND HAS A INFECTION CONTROL NURSE DAILY CM DISCUSSED PULMONARY REHAB WITH PT THIS HAS BEEN THE RECOMMENDATION DURING BOTH OF HER RECENT ADMISSIONS. PT REPORTS SHE DOES NOT WANT TO GO STAY ANYWHERE BECAUSE SHE CANNOT CONTINUE TO PAY HER FRIEND $100/WEEK TO FEED HER CATS. CM ENCOURAGED PT TO CONSIDER REHAB FURTHER AND REMINDED HER SHE WOULD NOT BE ABLE TO CARE FOR HER CATS IF SHE CONTINUES TO REQUIRE HOSPITALIZATION. PT REPORTS SHE KNOWS BUT HAS TO MAKE A PLAN FOR HER PET CARE IMM DELIVERED, ORIGINAL GIVEN TO PT, COPY SENT TO MEDICAL RECORDS DC PLAN TBD HOME RESUME INFECTION CONTROL NURSE VS PULMONARY REHAB
--- NOTE | 2021-06-19 13:28 | HO.PM.IMPN ---
Subjective Subjective Date of Service: 06/19/21 Interval History: Acute hypoxemic respiratory failure secondary to aspiration pneumonia, pulmonary embolism, COPD. Review of Systems Shortness of breath is slightly better than yesterday Diet advanced as per speech and Swallow Denies any chest pain or abdominal pain, has dry cough no fever or night. Physical Exam Vital Signs: Vital Signs: Last Vital Signs Temp 98.5 F 06/19/21 09:09 Pulse 75 06/19/21 11:30 Resp 20 06/19/21 11:30 BP 134/70 06/19/21 09:09 Pulse Ox 94 06/19/21 09:09 BMI result Body Mass Index 24.5 Appearance: Alert.? Oriented X3.? not in distress.? Eyes: Pupils equal, round and reactive to light.? Sclera nonicteric.?. cvs: rrr, [id number] , no murmur res: air entry says similar to yesterday, has rhonchi. abd: no rebound or guarding ,nt, bs present. ext pulses present , no cyanosis ,Gait well balanced well coordinated. neuro: axo3 , nonfocal. Objective Data Active Medications Acetaminophen (Acetaminophen 325 Mg Tablet) 650 mg PO Q6H PRN PRN Reason: Pain, Mild (Pain Scale 1-3) Al Hydroxide/Mg Hydroxide (Magnesium Hydrox/Alum Hydrox 30 Ml Oral.Susp) 30 ml PO Q4H PRN PRN Reason: Heartburn/Nausea Albuterol Sulfate (Albuterol Sulfate (0.083%) 2.5 Mg/3 Ml Vial.Neb) 2.5 mg INHALE Q2H PRN PRN Reason: Shortness of Breath/Wheezing Albuterol/Ipratropium (Albuterol/Iprat 2.5/0.5mg 3 Ml Ampul.Neb) 3 ml INHALE RQ4H WHILE AWAKE [facility] Last Admin: 06/19/21 11:27 Dose: 3 ml Documented by: ALEXANDER Bisacodyl (Bisacodyl 5 Mg Tablet.) 10 mg PO BEDTIME [facility] Last Admin: 06/18/21 21:54 Dose: 10 mg Documented by: RADHA Cyanocobalamin (Cyanocobalamin (Vitamin B-12) 1,000 Mcg Tablet) 1,000 mcg PO BEDTIME [facility] Last Admin: 06/18/21 21:54 Dose: 1,000 mcg Documented by: RADHA Docusate Sodium (Docusate Sodium 100 Mg Capsule) 100 mg PO BID [facility] Last Admin: 06/19/21 08:36 Dose: Not Given Documented by: LINH Non-Admin Reason: Patient Refused Famotidine (Famotidine/Pf 20 Mg/2 Ml Vial) 20 mg IVPUSH BID [facility] Last Admin: 06/19/21 08:48 Dose: 20 mg Documented by: LINH Folic Acid (Folic Acid 1 Mg Tablet) 1 mg PO BID [facility] Last Admin: 06/19/21 08:48 Dose: 1 mg Documented by: LINH Heparin Sodium (Porcine) (Heparin Sodium,Porcine 5,000 Unit/Ml Vial) 2,400 unit 40 unit/kg (2400 unit) IVPUSH PROTOCOL BOLUS PRN; Protocol PRN Reason: 40 unit/kg - Heparin Protocol Last Admin: 06/19/21 01:19 Dose: 2,400 unit Documented by: RADHA Heparin Sodium (Porcine) (Heparin Sodium,Porcine 5,000 Unit/Ml Vial) 4,700 unit 80 unit/kg (4700 unit) IVPUSH PROTOCOL BOLUS PRN; Protocol PRN Reason: 80 unit/kg - Heparin Protocol Last Admin: 06/18/21 09:25 Dose: 4,700 unit Documented by: LINH Heparin Sodium/Sodium Chloride () 25,000 unit in 250 mls @ 0 mls/hr IVCONT .Q0M [facility]; Protocol Last Titration: 06/19/21 08:00 Dose: 20 units/kg/hr, 11.79 mls/hr Documented by: LINH Cosigned by: OSMAN Ampicillin Sodium/Sulbactam (Sodium 3 gm/ Sodium Chloride) 100 mls @ 200 mls/hr IV Q6H [facility] Last Infusion: 06/19/21 07:00 Dose: 0 mls/hr Documented by: LINH Lorazepam (Lorazepam 1 Mg Tablet) 1 mg PO DAILY PRN PRN Reason: Anxiety Melatonin (Melatonin 3 Mg Tablet) 6 mg PO BEDTIME PRN PRN Reason: Insomnia Last Admin: 06/18/21 21:54 Dose: 6 mg Documented by: RADHA Methotrexate (Methotrexate Sodium 2.5 Mg Tablet) 10 mg PO SA@0900 [facility] Methylprednisolone Sodium Succinate (Methylprednisolone Sod Succ 40 Mg/Ml Vial) 40 mg IVPUSH Q6H [facility] Last Admin: 06/19/21 08:48 Dose: 40 mg Documented by: LINH Nicotine (Nicotine 14 Mg Patch.Td24) 14 mg TRANSDERMA DAILY [facility] Last Admin: 06/19/21 08:36 Dose: Not Given Documented by: LINH Non-Admin Reason: Patient Refused Non-Formulary Medication (Linaclotide [Linzess]) 290 mcg PO BEDTIME [facility] Non-Formulary Medication (Risedronate) 1 tab PO .QMONTH [facility] Non-Formulary Medication (Umeclidinium-Vilanterol [Anoro Ellipta]) 1 inhalation INHALE DAILY [facility] Omeprazole (Omeprazole 40 Mg Capsule.Dr) 40 mg PO BID@0630,1630 [facility] Last Admin: 06/19/21 06:37 Dose: Not Given Documented by: RADHA Non-Admin Reason: Patient Refused Ondansetron HCl (Ondansetron Hcl 4 Mg/2 Ml Vial) 4 mg IVPUSH Q8H PRN PRN Reason: Nausea and Vomiting Pregabalin (Pregabalin 150 Mg Capsule) 150 mg PO TID [facility] Last Admin: 06/19/21 08:48 Dose: 150 mg Documented by: LINH Sodium Chloride (0.9 % Sodium Chloride Flush 3 Ml Syringe) 3 ml IVFLUSH QSHIFT [facility] Last Admin: 06/19/21 08:38 Dose: Not Given Documented by: LINH Non-Admin Reason: Med Not Available Zolpidem Tartrate (Zolpidem Tartrate 5 Mg Tablet) 5 mg PO BEDTIME PRN PRN Reason: Insomnia Last Admin: 06/18/21 21:54 Dose: 5 mg Documented by: RADHA Labs CBC & Chem 7: 06/19/21 07:48 06/19/21 07:48 Labs: Laboratory Results - last 24 hr 06/18/21 06/18/21 06/18/21 14:02 15:01 15:01 MCV MCH MCHC RDW Plt Count MPV Immature Gran % (Auto) Neut % (Auto) Lymph % (Auto) [place] % (Auto) Eos % (Auto) Baso % (Auto) Lymph # (Auto) [place] # (Auto) Eos # (Auto) Baso # (Auto) Abs Immat Gran (auto) Absolute Neuts (auto) Absolute Nucleated RBC Nucleated RBC % (auto) PTT (Heparin Protocol) 77.2 D O2 Saturation 52.0 ABG pH at Pt Temp 7.49 H ABG pCO2 at Pt Temp 34 ABG pO2 at Pt Temp 36 L* ABG HCO3 27 H ABG Base Excess (Actual) 4.1 VBG pH VBG pCO2 VBG pO2 VBG HCO3 VBG O2 Saturation VBG Base Excess Anion Gap 11 L Estim Creat Clear Calc 65.6 Estimated GFR > 60 Random Glucose 185 H Lactic Acid Lactic Acid F/U @ 2Hr Lactic Acid F/U @ 4Hr Calcium 8.5 Procalcitonin 06/18/21 06/18/21 06/18/21 15:01 15:01 15:01 MCV 75.0 L MCH 21.2 L MCHC 28.3 L RDW 29.4 H Plt Count 294 MPV 10.3 Immature Gran % (Auto) 0.9 H Neut % (Auto) 93.0 H Lymph % (Auto) 3.4 L [place] % (Auto) 2.6 Eos % (Auto) 0.0 Baso % (Auto) 0.1 Lymph # (Auto) 0.5 L [place] # (Auto) 0.4 Eos # (Auto) 0.0 Baso # (Auto) 0.0 Abs Immat Gran (auto) 0.13 H Absolute Neuts (auto) 12.7 H Absolute Nucleated RBC 0.000 Nucleated RBC % (auto) 0.0 PTT (Heparin Protocol) O2 Saturation ABG pH at Pt Temp ABG pCO2 at Pt Temp ABG pO2 at Pt Temp ABG HCO3 ABG Base Excess (Actual) VBG pH VBG pCO2 VBG pO2 VBG HCO3 VBG O2 Saturation VBG Base Excess Anion Gap Estim Creat Clear Calc Estimated GFR Random Glucose Lactic Acid 3.9 H* Lactic Acid F/U @ 2Hr Lactic Acid F/U @ 4Hr Calcium Procalcitonin 0.06 06/18/21 06/18/21 06/18/21 15:05 17:25 20:44 MCV MCH MCHC RDW Plt Count MPV Immature Gran % (Auto) Neut % (Auto) Lymph % (Auto) [place] % (Auto) Eos % (Auto) Baso % (Auto) Lymph # (Auto) [place] # (Auto) Eos # (Auto) Baso # (Auto) Abs Immat Gran (auto) Absolute Neuts (auto) Absolute Nucleated RBC Nucleated RBC % (auto) PTT (Heparin Protocol) 38.4 L D O2 Saturation ABG pH at Pt Temp ABG pCO2 at Pt Temp ABG pO2 at Pt Temp ABG HCO3 ABG Base Excess (Actual) VBG pH 7.44 H VBG pCO2 35 VBG pO2 32 VBG HCO3 24 VBG O2 Saturation 42.0 VBG Base Excess 1.0 Anion Gap Estim Creat Clear Calc Estimated GFR Random Glucose Lactic Acid Lactic Acid F/U @ 2Hr 2.1 H* Lactic Acid F/U @ 4Hr Calcium Procalcitonin 06/18/21 06/19/21 06/19/21 20:44 07:48 07:48 MCV 75.9 L MCH 21.3 L MCHC 28.1 L RDW 29.7 H Plt Count 326 MPV 10.1 Immature Gran % (Auto) Neut % (Auto) Lymph % (Auto) [place] % (Auto) Eos % (Auto) Baso % (Auto) Lymph # (Auto) [place] # (Auto) Eos # (Auto) Baso # (Auto) Abs Immat Gran (auto) Absolute Neuts (auto) Absolute Nucleated RBC 0.000 Nucleated RBC % (auto) 0.0 PTT (Heparin Protocol) O2 Saturation ABG pH at Pt Temp ABG pCO2 at Pt Temp ABG pO2 at Pt Temp ABG HCO3 ABG Base Excess (Actual) VBG pH VBG pCO2 VBG pO2 VBG HCO3 VBG O2 Saturation VBG Base Excess Anion Gap 11 L Estim Creat Clear Calc 70.2 Estimated GFR > 60 Random Glucose 105 Lactic Acid Lactic Acid F/U @ 2Hr Lactic Acid F/U @ 4Hr 1.7 Calcium 9.1 D Procalcitonin 06/19/21 07:48 MCV MCH MCHC RDW Plt Count MPV Immature Gran % (Auto) Neut % (Auto) Lymph % (Auto) [place] % (Auto) Eos % (Auto) Baso % (Auto) Lymph # (Auto) [place] # (Auto) Eos # (Auto) Baso # (Auto) Abs Immat Gran (auto) Absolute Neuts (auto) Absolute Nucleated RBC Nucleated RBC % (auto) PTT (Heparin Protocol) 65.2 D O2 Saturation ABG pH at Pt Temp ABG pCO2 at Pt Temp ABG pO2 at Pt Temp ABG HCO3 ABG Base Excess (Actual) VBG pH VBG pCO2 VBG pO2 VBG HCO3 VBG O2 Saturation VBG Base Excess Anion Gap Estim Creat Clear Calc Estimated GFR Random Glucose Lactic Acid Lactic Acid F/U @ 2Hr Lactic Acid F/U @ 4Hr Calcium Procalcitonin Microbiology Microbiology Results: Microbiology 06/18/21 14:46 Urine Culture - Preliminary Urine Catheterized - Straight Catheter Enterococcus/Streptococcus sp 06/18/21 04:56 Blood Culture - Preliminary Blood - Venous No growth after 24 hours. 06/18/21 04:56 Blood Culture - Preliminary Blood - Venous No growth after 24 hours. Assessment and Plan (1) Pulmonary embolism: Status: Acute Assessment and Plan: 76-year-old female with a past medical history of rheumatoid arthritis, tobacco dependence, vertebral compression fracture, chronic back pain, iron deficiency anemia, history of recurrent UTIs, history of diastolic heart failure, COPD, ILD, chronic respiratory failure on 4 L of home oxygen, history of left lower extremity DVT? and had been on Eliquis. 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 She left AMA on 06/16/21 because I was worry about my cat . She comes back today with increasing shortness of breath and found by EMS to be severely hypoxic with oxygen saturation in the 60s on 4 liters.? CTA of chest shows?Subsegmental right middle lobe pulmonary emboli. 2.? Worsening bilateral lower lobe consolidations compared to prior. 1/Acute on chronic hypoxic respiratoy failure d/t copd exacerbation, aspiration penumonia and pulmonary embolism -Adress underlying issues as below -O2 to treat hypoxia -repeat covid neg -Morphine PRN for respiratory distresss change to unasyn , AC pulm eval-for pulm embolism/aspirational pneumonia No sepsis-because tachypnea and tachycardia probably related to pulmonary embolism.? And lactic acidosis related to nebs use. 2/Pulmonay embolis, and subclvian artery clot..unclear if she took eliquis upon discharge -Heparin drip as started in ED and ultimately to NOAC of coumadin added heme consult 3/ Aspiration pneumonia, meets sepsis criteria (no severe feature--elevated INR d/t anticoagulation -treat unasyn, Augmentin at disscharge. 4/COPD with exacerbation -Bronchodilators by Neb, Solumedrol 5/mild protein calory malnutrition--consider Ensure 6/History of rheumatoid arthritis: Methotreaxate 7/History of chronic back pain/vertebral compression fractures:? Pain control. 8History of DVT: Patient currently on heparin drip.? Home Eliquis held. 9/History of dysphagia: Patient was on pureed diet.? Quality Stroke Does the patient have a stroke diagnosis?: No VTE Prior VTE?: Yes VTE Risk Level:: Medical - moderate - high VTE Device Contraindication: Treatment Not Tolerated VTE Drug Contraindication: N/A - Med Ordered
--- NOTE | 2021-06-19 13:51 | PC.NURSE ---
pt brouught over to ED overflow at 1330 - IV antibiootics scheduled for 11am not given yet, per RN taking report from pt pulled her IV prior to getting the antibiotics administered. that rn was unable to get access again. pt in Overflow, this RN attempted AC access on the pt 2x without siccess. call placed to Main ED to obtain U/S guided IV placement.
--- NOTE | 2021-06-19 14:02 | PC.NURSE ---
call placed to pharmacy regarding late antibiotic and possible need to change time for administration.
--- NOTE | 2021-06-19 14:04 | MHC.SL.SWA ---
Speech Pathologist Impression: Pharyngeal Dysphagia Risk of Aspiration Due to: History of Pneumonia Dysphasia Diet Status: Upgrade Liquid Consistency and Strategies for Safe Swallow: Liquid Intake Recommendation: Honey Thick Liquid Intake Strategies: Solid Food Consistency: Dietary Recommendations: Chopped/Advanced (NDD3) Additional Modifications to Solid Foods: Avoid mixed consistencies of food, e.g. thin liquids with solids (cereals, soups) as well as thin gravies with meals. Oral Medication Intake: Crushed with Puree Compensatory Strategies and Precautions to be Taken for Safe Swallow: Sitting Upright (90 deg) Liquids from Cup Alternate Liquids/Solids Avoid Specific Foods Supervision While Eating and Drinking for Safe Swallow: Total Supervision (1:1) Foods to Avoid: Avoid mixed consistencies of food, e.g. thin liquids with solids (cereals, soups) as well as thin gravies with meals. Swallowing Recommended Treatments: Compens. Strategy Educat. Recommendation for Speech: Inpatient Speech Therapy Comment: Pt has well documented pharyngeal phase dysphagia, with carina aspiration of thin consistencies as demonstrated on previous MBSS. Pt has large hiatal hernia which is likely affecting swallow mechanism. Pt also likely silently aspirates, so she is not aware of material entering her airway. Pt additionally has history of rejecting dietary aspiration precautions and lapsing from precautions after hospital stay. Pt additionally is edentulous, and has difficulty masticating and managing difficult to chew foods. Pt protests wanting a regular diet, and due to refusal to eat any other consistency during last stay, was given regular food w/ nectar thick liquids. Given her aspiration risk, the presence of thin liquids in aspects of a regular diet, her difficulty chewing tough foods, recommend Chopped/Advanced (NDD3) w/ HONEY THICK liquids to start, w/ Pills CRUSHED in PUREE. Pt may protest if food does not look regular. MD, Nursing, Dieticians, and Dietary notified of diet recommendation via secure text. Frequency/Duration: TRANSFER AGENT to follow M-F while inpt Date Range for Service Req: Timeline to reassess: [employer]urb[employer] Machinist Clinican/Clinical Fellow: No Supervisory Statement: I have reviewed and agree with the student/clinical fellow's documentation: N/A Speech Language Pathologist: Carisa Irizarry M.A., CCC-TRANSFER AGENT
--- NOTE | 2021-06-19 14:29 | PM.HEMONCCN ---
Subjective - Subjective Chief complaint: Shortness of breath Patient: new to practice Consult date: 06/19/21 Primary Care Provider: Carlos Alberto Rodriges HPI - Consult Narrative Reason for consult: pulmonary embolism Narrative: Elmira Bingham is a 76 year old female with a past medical history of rheumatoid arthritis, tobacco dependence, vertebral compression fracture, chronic iron deficiency anemia and, history of left lower extremity DVT? and had been on Eliquis and was admitted on 06/10/2021 with a diagnosis of respiratory failure, COPD exacerbation and aspiration pneumonia. 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 She left against medical advice on 06/16/2021. She was on IV heparin during the last hospitalization. Patient states that she was taking at home after she left AMA. She has a history of chronic DVT, she developed recurrent clot in left lower extremity DVT in February 2021 when she was off anticoagulation. She states that her shortness of breath has improved significantly since she got admitted to the hospital. Review of Systems - Constitutional Reports as per HPI - Neurologic Denies memory loss, Denies seizure-like activity [facility] Medical History: Medical History (Last Reviewed 06/18/21 @ 03:24 by Akira James MD) Bipolar disorder Chronic idiopathic constipation Chronic respiratory failure with hypoxia Compression fracture of T9 vertebra COPD (chronic obstructive pulmonary disease) DVT (deep venous thrombosis) DVT (deep venous thrombosis) Hiatal hernia Hiatal hernia History of diverticulitis History of treatment for tuberculosis Interstitial lung disease Iron deficiency anemia Left rib fracture Opioid abuse Peripheral neuropathy Rash Rheumatoid arthritis Rib pain on left side Rib pain on right side Surgical History: Surgical History (Last Reviewed 06/18/21 @ 03:24 by Akira James MD) H/O colonoscopy H/O esophagogastroduodenoscopy Social History: Social History (Last Reviewed 06/18/21 @ 03:24 by Akira James MD) Living Situation History: Household Members: None Housing: House Do you presently have visiting nurse or other home services: No Alcohol History: Alcohol intake: unknown Alcohol History Quit Date: Year quit: 1989 Alcohol History Details: Alcohol intake frequency: does not drink Tobacco History: Patient Tobacco Use Status: Current everyday Tobacco Tobacco use type: Cigarette Substance Use History: Use of substances other than those prescribed or required for medical reasons: No Advance Directives: Advance Directives: No Advance Directives Information Provided: Advance Directives Information Provided comment: declined Occupation Assessmet: service: No Current occupational status: retired Home Medications and Allergies Current Medications: Current Medications Acetaminophen (Acetaminophen 325 Mg Tablet) 650 mg PO Q6H PRN PRN Reason: Pain, Mild (Pain Scale 1-3) Al Hydroxide/Mg Hydroxide (Magnesium Hydrox/Alum Hydrox 30 Ml Oral.Susp) 30 ml PO Q4H PRN PRN Reason: Heartburn/Nausea Albuterol Sulfate (Albuterol Sulfate (0.083%) 2.5 Mg/3 Ml Vial.Neb) 2.5 mg INHALE Q2H PRN PRN Reason: Shortness of Breath/Wheezing Albuterol/Ipratropium (Albuterol/Iprat 2.5/0.5mg 3 Ml Ampul.Neb) 3 ml INHALE RQ4H WHILE AWAKE [facility] Last Admin: 06/19/21 11:27 Dose: 3 ml Documented by: Bisacodyl (Bisacodyl 5 Mg Tablet.) 10 mg PO BEDTIME [facility] Last Admin: 06/18/21 21:54 Dose: 10 mg Documented by: Cyanocobalamin (Cyanocobalamin (Vitamin B-12) 1,000 Mcg Tablet) 1,000 mcg PO BEDTIME [facility] Last Admin: 06/18/21 21:54 Dose: 1,000 mcg Documented by: Docusate Sodium (Docusate Sodium 100 Mg Capsule) 100 mg PO BID [facility] Last Admin: 06/19/21 08:36 Dose: Not Given Documented by: Famotidine (Famotidine/Pf 20 Mg/2 Ml Vial) 20 mg IVPUSH BID [facility] Last Admin: 06/19/21 08:48 Dose: 20 mg Documented by: Folic Acid (Folic Acid 1 Mg Tablet) 1 mg PO BID [facility] Last Admin: 06/19/21 08:48 Dose: 1 mg Documented by: Heparin Sodium (Porcine) (Heparin Sodium,Porcine 5,000 Unit/Ml Vial) 2,400 unit 40 unit/kg (2400 unit) IVPUSH PROTOCOL BOLUS PRN; Protocol PRN Reason: 40 unit/kg - Heparin Protocol Last Admin: 06/19/21 01:19 Dose: 2,400 unit Documented by: Heparin Sodium (Porcine) (Heparin Sodium,Porcine 5,000 Unit/Ml Vial) 4,700 unit 80 unit/kg (4700 unit) IVPUSH PROTOCOL BOLUS PRN; Protocol PRN Reason: 80 unit/kg - Heparin Protocol Last Admin: 06/18/21 09:25 Dose: 4,700 unit Documented by: Heparin Sodium/Sodium Chloride () 25,000 unit in 250 mls @ 0 mls/hr IVCONT .Q0M [facility]; Protocol Last Titration: 06/19/21 08:00 Dose: 20 units/kg/hr, 11.79 mls/hr Documented by: Ampicillin Sodium/Sulbactam (Sodium 3 gm/ Sodium Chloride) 100 mls @ 200 mls/hr IV Q6H [facility] Last Infusion: 06/19/21 07:00 Dose: Infused Documented by: Lorazepam (Lorazepam 1 Mg Tablet) 1 mg PO DAILY PRN PRN Reason: Anxiety Melatonin (Melatonin 3 Mg Tablet) 6 mg PO BEDTIME PRN PRN Reason: Insomnia Last Admin: 06/18/21 21:54 Dose: 6 mg Documented by: Methotrexate (Methotrexate Sodium 2.5 Mg Tablet) 10 mg PO SA@0900 [facility] Methylprednisolone Sodium Succinate (Methylprednisolone Sod Succ 40 Mg/Ml Vial) 40 mg IVPUSH Q6H [facility] Last Admin: 06/19/21 08:48 Dose: 40 mg Documented by: Nicotine (Nicotine 14 Mg Patch.Td24) 14 mg TRANSDERMA DAILY [facility] Last Admin: 06/19/21 08:36 Dose: Not Given Documented by: Non-Formulary Medication (Linaclotide [Linzess]) 290 mcg PO BEDTIME [facility] Non-Formulary Medication (Risedronate) 1 tab PO .QMONTH [facility] Non-Formulary Medication (Umeclidinium-Vilanterol [Anoro Ellipta]) 1 inhalation INHALE DAILY [facility] Omeprazole (Omeprazole 40 Mg Capsule.Dr) 40 mg PO BID@0630,1630 [facility] Last Admin: 06/19/21 06:37 Dose: Not Given Documented by: Ondansetron HCl (Ondansetron Hcl 4 Mg/2 Ml Vial) 4 mg IVPUSH Q8H PRN PRN Reason: Nausea and Vomiting Pregabalin (Pregabalin 150 Mg Capsule) 150 mg PO TID [facility] Last Admin: 06/19/21 08:48 Dose: 150 mg Documented by: Sodium Chloride (0.9 % Sodium Chloride Flush 3 Ml Syringe) 3 ml IVFLUSH QSHIFT [facility] Last Admin: 06/19/21 08:38 Dose: Not Given Documented by: Zolpidem Tartrate (Zolpidem Tartrate 5 Mg Tablet) 5 mg PO BEDTIME PRN PRN Reason: Insomnia Last Admin: 06/18/21 21:54 Dose: 5 mg Documented by: Home Medications Medication Instructions Recorded Confirmed Type cyanocobalamin (vitamin B-12) 1,000 mcg PO BEDTIME 03/31/21 06/18/21 History 1,000 mcg tablet docusate sodium 100 mg capsule 100 mg PO BID 03/31/21 06/18/21 History folic acid 1 mg tablet 1 mg PO BID 03/31/21 06/18/21 History methotrexate sodium 2.5 mg tablet 10 mg PO SA@0900 03/31/21 06/18/21 History omeprazole 40 mg capsule,delayed 40 mg PO DAILY@0630 03/31/21 06/18/21 History release oxycodone 5 mg tablet 5 mg PO TID PRN 03/31/21 06/18/21 History umeclidinium 62.5 mcg-vilanterol 1 inh INHALATION DAILY 03/31/21 06/18/21 History 25 mcg/actuation powdr for inhalation (Anoro Ellipta) linaclotide 290 mcg capsule 290 mcg PO BEDTIME 05/18/21 06/18/21 History (Linzess) pregabalin 150 mg capsule 150 mg PO TID 05/18/21 06/18/21 History risedronate 150 mg tablet 1 tab PO QMONTH 05/18/21 06/18/21 History zolpidem 5 mg tablet 5 mg PO BEDTIME PRN 05/18/21 06/18/21 History lorazepam 1 mg tablet 1 mg PO DAILY PRN 06/11/21 06/18/21 History prednisone 20 mg tablet 10 mg PO DAILY 06/11/21 06/18/21 History Allergies Allergy/AdvReac Type Severity Reaction Status Date / Time loratadine [From CLARITIN] Allergy Unknown MOUTH SORE Verified 06/13/21 07:09 Physical Exam Vital signs: Vital Signs Temp 98.5 F 06/19/21 09:09 Pulse 75 06/19/21 11:30 Resp 20 06/19/21 11:30 BP 134/70 06/19/21 09:09 Pulse Ox 94 06/19/21 09:09 Intake & Output 06/18/21 06/19/21 06/19/21 18:59 06:59 18:59 Intake Total 458.684 / 750.000 191.316 / 750.000 171.794 / 171.794 Balance 458.684 / 750.000 191.316 / 750.000 171.794 / 171.794 Intake: Intake, IV Amount 458.684 / 750.000 191.316 / 750.000 171.794 / 171.794 Ampicillin Sodium/Sulbactam Na 200 / 400 100 / 400 100 / 100 3 gm In 0.9 % Sodium Chloride 100 ml @ 200 mls/hr IV Q6H [facility] Rx#:[id number] Piperacillin Sodium/Tazobactam 100 / 100 4.5 gm In 0.9 % Sodium Chloride 100 ml @ 200 mls/hr IV Q8H [facility] Rx#:[id number] Heparin Sodium,Porcine/1/2NS 25 158.684 / 250.000 91.316 / 250.000 71.794 / 71.794 ,000 unit In 250 ml @ Per Protocol IVCONT .Q0M [facility] Rx#: [id number] Weight 58.967 kg - Constitutional Present: no acute distress - Routine HEENT Exam Eye: Present: EOMI, conjunctivae pale - Routine Neck Exam Absent: lymphadenopathy - Routine Respiratory Exam Absent: accessory muscle use - Routine Cardiovascular Exam Cardiovascular: Present: S1, S2 - Routine Abdominal Exam Present: soft - Routine Extremities Exam Absent: tenderness Hem/Onc Consult Result - Labs CBC & Chem 7: 06/19/21 07:48 06/19/21 07:48 Labs: Short CBC 06/18/21 06/19/21 Range/Units 15:01 07:48 WBC 13.7 H 14.9 H (4.8-10.8) X10*3/uL Hgb 9.5 L 9.9 L (12.0-16.0) g/dl Hct 33.6 L 35.2 L (37.0-47.0) % Plt Count 294 326 (160-400) X10*3/uL BMP 06/18/21 06/19/21 15:01 07:48 Sodium 143 144 Potassium 4.1 4.2 Chloride 107 108 Carbon Dioxide 29 29 BUN 9 11 Creatinine 0.62 0.58 Calcium 8.5 9.1 D Assessment and Plan Patient Active problem list reviewed?: Yes (1) Pulmonary embolism Status: Acute Assessment and plan: 1. This is a pleasant 76-year-old woman with chronic left lower extremity DVT who is on anticoagulation with Eliquis now presenting with subsegmental pulmonary emboli associated with worsening bilateral pneumonia. She was recently diagnosed with left proximal left subclavian arterial thrombus, she had stent placed. Arterial thrombus occurred while she was on Eliquis. She is receiving IV heparin and IV antibiotics. Her symptoms have improved significantly. Submit lupus anticoagulant test as she has had both venous and arterial thrombosis. If she does have lupus anticoagulant, she should be switched to warfarin for long-term anticoagulation. Continue with baby aspirin. I thank you for this consultation. - Time Spent With Patient Time Spent with Patient (in minutes): 20
--- NOTE | 2021-06-19 14:55 | PC.NURSE ---
20G placed in the RAC and wrapped to not dislodge. call to pharmacy to change the time for antibiotic ampicillin, documented as not given in the MAR
[2021-06-19 15:06] LABS: PTT Heparin Drip 55.8 SEC (53-77.9)
--- NOTE | 2021-06-19 15:40 | PC.NURSE ---
1430 PTT HD results 55.8 - no change to be made to Heparin gtt rate
--- NOTE | 2021-06-19 16:24 | PC.NURSE ---
call placed to kitchen staff to bring thickening packets to overflow. awaiting thickening packets to administer medications
--- NOTE | 2021-06-19 17:33 | P.PNPL_ITS ---
Subjective Subjective Date of Service: 06/19/21 Interval history: The patient was seen on exam. She is using a face mask. Patient is asking for food. Objective Data Labs CBC & Chem 7: 06/19/21 07:48 06/19/21 07:48 Labs: Laboratory Results - last 24 hr 06/18/21 06/18/21 06/18/21 17:25 20:44 20:44 WBC RBC Hgb Hct MCV MCH MCHC RDW Plt Count MPV Absolute Nucleated RBC Nucleated RBC % (auto) PTT (Heparin Protocol) 38.4 L D Sodium Potassium Chloride Carbon Dioxide Anion Gap BUN Creatinine Estim Creat Clear Calc Estimated GFR Random Glucose Lactic Acid F/U @ 2Hr 2.1 H* Lactic Acid F/U @ 4Hr 1.7 Calcium 06/19/21 06/19/21 06/19/21 07:48 07:48 07:48 WBC 14.9 H RBC 4.64 Hgb 9.9 L Hct 35.2 L MCV 75.9 L MCH 21.3 L MCHC 28.1 L RDW 29.7 H Plt Count 326 MPV 10.1 Absolute Nucleated RBC 0.000 Nucleated RBC % (auto) 0.0 PTT (Heparin Protocol) 65.2 D Sodium 144 Potassium 4.2 Chloride 108 Carbon Dioxide 29 Anion Gap 11 L BUN 11 Creatinine 0.58 Estim Creat Clear Calc 70.2 Estimated GFR > 60 Random Glucose 105 Lactic Acid F/U @ 2Hr Lactic Acid F/U @ 4Hr Calcium 9.1 D 06/19/21 14:41 WBC RBC Hgb Hct MCV MCH MCHC RDW Plt Count MPV Absolute Nucleated RBC Nucleated RBC % (auto) PTT (Heparin Protocol) 55.8 Sodium Potassium Chloride Carbon Dioxide Anion Gap BUN Creatinine Estim Creat Clear Calc Estimated GFR Random Glucose Lactic Acid F/U @ 2Hr Lactic Acid F/U @ 4Hr Calcium Microbiology Microbiology Results: Microbiology 06/18/21 14:46 Urine Catheterized - Straight Catheter Urine Culture - Preliminary Enterococcus/Streptococcus sp 06/18/21 04:56 Blood - Venous Blood Culture - Preliminary No growth after 24 hours. 06/18/21 04:56 Blood - Venous Blood Culture - Preliminary No growth after 24 hours. Review of Systems Constitutional: Denies daytime sleepiness, Denies excessive sweating, Denies fatigue, Denies fever(s), Denies lethargy, Denies malaise, Denies night sweats, Denies snoring and Denies weight loss Eyes: Denies blurry vision and Denies itchy eyes Denies nasal congestion, Denies post nasal drip, Denies sinus pain, Denies sinus pressure and Denies other ( Thrush) Cardiovascular: Denies chest pain, Denies pedal edema, Reports dyspnea, Denies orthopnea and Denies paroxysmal nocturnal dyspnea Respiratory: Denies cough, Denies hemoptysis, Denies excessive phlegm production, Reports dyspnea, Denies snoring and Denies wheezing Gastrointestinal: Denies abdominal pain and Denies heartburn Musculoskeletal: Denies myalgias, Denies arthralgias and Denies joint swelling Skin/Breast: Denies rash Denies memory loss and Denies seizure-like activity Psychiatric: Denies abnormal sleep pattern, Denies anxiety and Denies memory loss Endocrine: Denies excessive sweating, Denies fatigue and Denies heat intolerance Hematologic/Lymphatic: Denies easy bruising Allergic/Immunologic: Denies itchy eyes, Denies seasonal rhinorrhea and Denies wheezing Physical Exam Vital Signs: Vital Signs: Last Vital Signs Temp 98.5 F 06/19/21 09:09 Pulse 75 06/19/21 16:59 Resp 16 06/19/21 16:59 BP 114/69 06/19/21 16:59 Pulse Ox 96 06/19/21 16:59 BMI result Body Mass Index 24.5 Const: General: alert Neck: Neck: Yes normal visual inspection, Yes full ROM and Yes no lymphadeno enrique Chest: Chest palpation & inspection: normal inspection of the chest Resp: Auscultation: diminished lung sounds Cardio: Rate: regular rate Rhythm: regular rhythm Heart sounds: S1 normal heart sound present and S2 normal heart sound present GI: Palpation (GI): Soft to palpation and nontender Auscultation: normal bowel sounds Skin: General skin exam: rashes and/or lesions noted Procedures Date of Service Date of Service: 06/19/21 Assessment and Plan Assessment and plan (1) Pulmonary embolism: Status: Acute (2) COPD (chronic obstructive pulmonary disease): Status: Acute (3) Recurrent aspiration pneumonia: Status: Acute (4) Acute and chronic respiratory failure with hypoxia: Status: Acute Assessment and Plan: Continue Unazyn Condider adding Vancomycin Continue antigoagulation Would benefit from a modified barium swallow or speech pathology evaluation Respiratory therapy CPT with acapella valve Time Spent With Patient Time: Total time spent is greater than 50% in coordination of care (as documented) at patient's floor/unit and/or counseling patient: Time with patient: 15 - 24 minutes Progress Note: Quality Stroke Does the patient have a stroke diagnosis?: No
[2021-06-19] MEDS: Omeprazole 40 MG CAPSULE.DR PO (18:03)
[2021-06-19] MEDS: Acetaminophen 325 MG TABLET 650 MG PO (18:03)
[2021-06-19] MEDS: 0.9 % Sodium Chloride Flush 3 ML SYRINGE IVFLUSH (18:04)
[2021-06-19] MEDS: Docusate Sodium 100 MG CAPSULE PO (20:18)
[2021-06-19] MEDS: Cyanocobalamin (Vitamin B-12) 1,000 MCG TABLET 1000 MCG PO (20:18)
[2021-06-19] MEDS: bisacodyL 5 MG TABLET.DR 10 MG PO (20:19)
[2021-06-19 20:25] LABS: COVID-19 Test Negative (Negative); IDNOW Serial# 9DD0AD1C
[2021-06-19 21:33] LABS: PTT Heparin Drip 66.3 SEC (53-77.9)
--- NOTE | 2021-06-19 21:45 | PHA.PROG ---
Admission Date/Time: June 18, 2021 03:36 Indication: Respiratory infection Weight in k.967 kg Adjusted body weight in Kg: [place] body weight in Kg: Obesity Dosing Indication % IBW: Serum Creatinine - Last 168 Hours 06/17/21 06/18/21 06/19/21 21:33 15:01 07:48 Creatinine 0.58 0.62 0.58 Estimated CrCl and GFR - Last 168 Hours 06/17/21 06/18/21 06/19/21 21:33 15:01 07:48 Estim Creat Clear Calc 70.2 65.6 70.2 Estimated GFR > 60 > 60 > 60 Vancomycin Loading Dose: 1250 mg Current Vancomycin Dosing Regimen: 1000mg q24h Vancomycin Monitoring using AUC goal of 400 - 600 range with trough as surrogate marker: auc 454, trough 13.5 Date and Time for next Vancomycin Level to be drawn: 06/21/21 @1999 Pharmacist Comments on Vancomycin Plan: Vancomycin dosing will take advantage of MtoV as a clinical decision support tool that uses Bayesian modeling to calculate individual patient's pharmacokinetic parameters and forecast the patient's drug concentration time course with the target goal AUC 24 range of 400 - 600 mg/L/hr.
[2021-06-20] VITALS: BP 115/52; PULSE 73; RESP 15; TEMP 36.7; O2SAT 95
[2021-06-20] MEDS: vancomycin HCL 1,250 MG in 0.9 % Sodium Chloride 250 ML 166.67 MG IV (00:12)
[2021-06-20] MEDS: 0.9 % Sodium Chloride Flush 3 ML SYRINGE IVFLUSH ×3 (00:18→14:33)
[2021-06-20 03:01] LABS: PTT Heparin Drip 90.7 SEC (53-77.9)
[2021-06-20] MEDS: Acetaminophen 325 MG TABLET 650 MG PO (03:14)
[2021-06-20] MEDS: Heparin Sodium,Porcine/1/2NS 25,000 UNIT/250 ML IV.SOLN 10.61 UNIT IVCONT (04:06)
[2021-06-20] MEDS: Ampicillin Sodium/Sulbactam Na 3 GM in 0.9 % Sodium Chloride 100 ML IV ×4 (04:21→20:33)
[2021-06-20] MEDS: methylPREDNISolone Sod Succ 40 MG/ML VIAL IVPUSH ×4 (04:21→23:55)
[2021-06-20] MEDS: Omeprazole 40 MG CAPSULE.DR PO ×2 (07:16→18:40)
[2021-06-20 07:22] LABS: Hematocrit 34.1 % (37.0-47.0); Hemoglobin 9.6 g/dl (12.0-16.0); Mean Corpuscular HGB Conc 28.2 g/dl (31.0-35.0); Mean Corpuscular Hemoglobin 21.5 pg (27.0-33.0); Mean Corpuscular Volume 76.5 fL (80.0-98.0); PLT CLUMP 1; Red Blood Count 4.46 X10*6/uL (4.20-5.50); Red Cell Distribution Width 29.7 % (11.0-16.0)
[2021-06-20 07:28] LABS: PLT ABN DIST 1
[2021-06-20 07:31] LABS: Anion Gap 11 (12-20); Blood Urea Nitrogen 11 mg/dL (9-16); Carbon Dioxide 26 mmol/L (22-29); Chloride 108 mmol/L (96-108); Creatinine Clr Calc Pharmacy 67.8; Estimated Glomerular Filt Rate > 60; Glucose Random 166 mg/dL (60-115); Potassium 4.4 mmol/L (3.3-5.1); Sodium 141 mmol/L (135-145)
[2021-06-20 07:53] LABS: Platelet Count 316 X10*3/uL (160-400); White Blood Count 15.5 X10*3/uL (4.8-10.8)
[2021-06-20 08:06] VITALS: BP 155/65; PULSE 110; RESP 24; O2SAT 91
[2021-06-20] MEDS: Albuterol/Iprat 2.5/0.5MG 3 ML AMPUL.NEB INHALE ×2 (08:30→11:26)
[2021-06-20 08:31] VITALS: PULSE 96; RESP 24; O2SAT 91
[2021-06-20] MEDS: Nicotine 14 MG PATCH.TD24 TRANSDERMA (08:42)
[2021-06-20] MEDS: Famotidine/PF 20 MG/2 ML VIAL IVPUSH ×2 (08:42→20:31)
[2021-06-20] MEDS: Pregabalin 150 MG CAPSULE PO ×3 (08:42→20:30)
[2021-06-20] MEDS: Folic Acid 1 MG TABLET PO ×2 (08:42→20:30)
[2021-06-20] MEDS: Docusate Sodium 100 MG CAPSULE PO ×2 (08:42→20:29)
[2021-06-20] MEDS: LORazepam 1 MG TABLET PO (08:45)
--- NOTE | 2021-06-20 09:17 | MHC.CM.PN ---
CM spoke with Patient's Brother/HCP/Jose @ [phone]. Patient lives alone in a house and uses home O2 (unsure of Supplier) and a cane to assist with mobility. Per Jose, Patient has had recent hospitalizations, where STR was recommended but Patient refused (wants to get home to her 5 cats). Patient has CCA and may benefit from home services if STR continues to be refused. CM has initiated and will follow for dc planning.PCP is DR. Carlos Alberto Rodriges.Patient's Nephew will transport to home.
[2021-06-20 11:27] VITALS: PULSE 77
[2021-06-20 12:08] LABS: PTT Heparin Drip 60.1 SEC (53-77.9)
--- NOTE | 2021-06-20 13:44 | P.PNIM_ITS ---
Subjective Subjective Date of Service: 06/20/21 Interval History: f/u Acute hypoxemic respiratory failure secondary to aspiration pneumonia, pulmonary embolism, COPD. Review of Systems Shortness of breath is better no fever Physical Exam Vital Signs: Vital Signs: Last Vital Signs Temp 98.0 F 06/20/21 00:00 Pulse 77 06/20/21 11:27 Resp 24 H 06/20/21 08:31 BP 155/65 H 06/20/21 08:06 Pulse Ox 91 L 06/20/21 08:06 BMI result Body Mass Index 24.5 Const: Other: Constitutional: Alert, in no distress, cachectic Mental Status: Oriented to person, place and time. Respiratory: tight air movment, rhonchi bilateral Cardiovascular: S1 S2 regular. No murmurs, rubs or gallops. Gastrointestinal: Abdomen soft, non-tender, non-distended. Normal bowel sounds.? Neurologic: Cranial nerves II-XII grossly intact. No focal neurological deficits. Moves all extremities spontaneously.? Skin: No rashes or lesions.? Musculoskeletal: No cyanosis or clubbing. Psychiatric: Normal mood and affect? Objective Data Active Medications Acetaminophen (Acetaminophen 325 Mg Tablet) 650 mg PO Q6H PRN PRN Reason: Pain, Mild (Pain Scale 1-3) Last Admin: 06/20/21 03:14 Dose: 650 mg Documented by: SERGIO Al Hydroxide/Mg Hydroxide (Magnesium Hydrox/Alum Hydrox 30 Ml Oral.Susp) 30 ml PO Q4H PRN PRN Reason: Heartburn/Nausea Albuterol Sulfate (Albuterol Sulfate (0.083%) 2.5 Mg/3 Ml Vial.Neb) 2.5 mg INHALE Q2H PRN PRN Reason: Shortness of Breath/Wheezing Albuterol/Ipratropium (Albuterol/Iprat 2.5/0.5mg 3 Ml Ampul.Neb) 3 ml INHALE RQ4H WHILE AWAKE [facility] Last Admin: 06/20/21 11:26 Dose: 3 ml Documented by: ALEXANDER Bisacodyl (Bisacodyl 5 Mg Tablet.Dr) 10 mg PO BEDTIME [facility] Last Admin: 06/19/21 20:19 Dose: 10 mg Documented by: MCKINLEY Cyanocobalamin (Cyanocobalamin (Vitamin B-12) 1,000 Mcg Tablet) 1,000 mcg PO BEDTIME [facility] Last Admin: 06/19/21 20:18 Dose: 1,000 mcg Documented by: MCKINLEY Docusate Sodium (Docusate Sodium 100 Mg Capsule) 100 mg PO BID [facility] Last Admin: 06/20/21 08:42 Dose: 100 mg Documented by: FLAKITA Famotidine (Famotidine/Pf 20 Mg/2 Ml Vial) 20 mg IVPUSH BID [facility] Last Admin: 06/20/21 08:42 Dose: 20 mg Documented by: FLAKITA Folic Acid (Folic Acid 1 Mg Tablet) 1 mg PO BID [facility] Last Admin: 06/20/21 08:42 Dose: 1 mg Documented by: FLAKITA Heparin Sodium (Porcine) (Heparin Sodium,Porcine 5,000 Unit/Ml Vial) 2,400 unit 40 unit/kg (2400 unit) IVPUSH PROTOCOL BOLUS PRN; Protocol PRN Reason: 40 unit/kg - Heparin Protocol Last Admin: 06/19/21 01:19 Dose: 2,400 unit Documented by: RADHA Heparin Sodium (Porcine) (Heparin Sodium,Porcine 5,000 Unit/Ml Vial) 4,700 unit 80 unit/kg (4700 unit) IVPUSH PROTOCOL BOLUS PRN; Protocol PRN Reason: 80 unit/kg - Heparin Protocol Last Admin: 06/18/21 09:25 Dose: 4,700 unit Documented by: LINH Heparin Sodium/Sodium Chloride () 25,000 unit in 250 mls @ 0 mls/hr IVCONT .Q0M [facility]; Protocol Last Titration: 06/20/21 13:11 Dose: 18 units/kg/hr, 10.61 mls/hr Documented by: FLAKITA Cosigned by: ALEKS Ampicillin Sodium/Sulbactam (Sodium 3 gm/ Sodium Chloride) 100 mls @ 200 mls/hr IV Q6H [facility] Last Infusion: 06/20/21 09:19 Dose: 0 mls/hr Documented by: FLAKITA Vancomycin HCl 1,000 mg/ (Sodium Chloride) 270 mls @ 270 mls/hr IV Q24H [facility] Lorazepam (Lorazepam 1 Mg Tablet) 1 mg PO DAILY PRN PRN Reason: Anxiety Last Admin: 06/20/21 08:45 Dose: 1 mg Documented by: FLAKITA Melatonin (Melatonin 3 Mg Tablet) 6 mg PO BEDTIME PRN PRN Reason: Insomnia Last Admin: 06/18/21 21:54 Dose: 6 mg Documented by: RADHA Methotrexate (Methotrexate Sodium 2.5 Mg Tablet) 10 mg PO SA@0900 [facility] Methylprednisolone Sodium Succinate (Methylprednisolone Sod Succ 40 Mg/Ml Vial) 40 mg IVPUSH Q6H [facility] Last Admin: 06/20/21 08:42 Dose: 40 mg Documented by: FLAKITA Nicotine (Nicotine 14 Mg Patch.Td24) 14 mg TRANSDERMA DAILY [facility] Last Admin: 06/20/21 08:42 Dose: 14 mg Documented by: FLAKITA Non-Formulary Medication (Linaclotide [Linzess]) 290 mcg PO BEDTIME [facility] Non-Formulary Medication (Risedronate) 1 tab PO .QMONTH [facility] Non-Formulary Medication (Umeclidinium-Vilanterol [Anoro Ellipta]) 1 inhalation INHALE DAILY [facility] Omeprazole (Omeprazole 40 Mg Capsule.) 40 mg PO BID@0630,1630 [facility] Last Admin: 06/20/21 07:16 Dose: 40 mg Documented by: SERGIO Ondansetron HCl (Ondansetron Hcl 4 Mg/2 Ml Vial) 4 mg IVPUSH Q8H PRN PRN Reason: Nausea and Vomiting Pharmacy Consult (Consult Rx Vancomycin Dosing) 1 each MISCELLANE DAILY PRN PRN Reason: Consult order Pregabalin (Pregabalin 150 Mg Capsule) 150 mg PO TID [facility] Last Admin: 06/20/21 08:42 Dose: 150 mg Documented by: FLAKITA Sodium Chloride (0.9 % Sodium Chloride Flush 3 Ml Syringe) 3 ml IVFLUSH QSHIFT [facility] Last Admin: 06/20/21 08:43 Dose: 3 ml Documented by: FLAKITA Zolpidem Tartrate (Zolpidem Tartrate 5 Mg Tablet) 5 mg PO BEDTIME PRN PRN Reason: Insomnia Last Admin: 06/18/21 21:54 Dose: 5 mg Documented by: RADHA Labs CBC & Chem 7: 06/20/21 06:56 06/20/21 06:56 Labs: Laboratory Results - last 24 hr 06/19/21 06/19/21 06/19/21 14:41 19:50 21:00 MCV MCH MCHC RDW Plt Count MPV Absolute Nucleated RBC Nucleated RBC % (auto) PTT (Heparin Protocol) 55.8 66.3 Anion Gap Estim Creat Clear Calc Estimated GFR Random Glucose Calcium COVID-19 ([facility]) Negative COVID-19 Clin Com See Note 06/20/21 06/20/21 06/20/21 02:34 06:56 06:56 MCV 76.5 L MCH 21.5 L MCHC 28.2 L RDW 29.7 H Plt Count 316 MPV 10.0 Absolute Nucleated RBC 0.000 Nucleated RBC % (auto) 0.0 PTT (Heparin Protocol) 90.7 H D Anion Gap 11 L Estim Creat Clear Calc 67.8 Estimated GFR > 60 Random Glucose 166 H Calcium 9.0 COVID-19 ([facility]) COVID-19 Clin Com 06/20/21 11:43 MCV MCH MCHC RDW Plt Count MPV Absolute Nucleated RBC Nucleated RBC % (auto) PTT (Heparin Protocol) 60.1 D Anion Gap Estim Creat Clear Calc Estimated GFR Random Glucose Calcium COVID-19 ([facility]) COVID-19 Clin Com Microbiology Microbiology Results: Microbiology 06/18/21 14:46 Urine Culture - Final Urine Catheterized - Straight Catheter Enterococcus faecalis 06/18/21 04:56 Blood Culture - Preliminary Blood - Venous No growth after 48 hours. 06/18/21 04:56 Blood Culture - Preliminary Blood - Venous No growth after 48 hours. Assessment and Plan (1) Pulmonary embolism: Status: Acute Assessment and Plan: 76-year-old female with a past medical history of rheumatoid arthritis, tobacco dependence, vertebral compression fracture, chronic back pain, iron deficiency anemia, history of recurrent UTIs, history of diastolic heart failure, COPD, ILD, chronic respiratory failure on 4 L of home oxygen, history of left lower extremity DVT? and had been on Eliquis. 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 She left AMA on 06/16/21 because I was worry about my cat . She comes back today with increasing shortness of breath and found by EMS to be severely hypoxic with oxygen saturation in the 60s on 4 liters.? CTA of chest shows?Subsegmental right middle lobe pulmonary emboli. 2.? Worsening bilateral lower lobe consolidations compared to prior. 1/Acute on chronic hypoxic respiratoy failure d/t copd exacerbation, aspiration penumonia and pulmonary embolism -Adress underlying issues as below -O2 to treat hypoxia -Morphine PRN for respiratory distresss pulm eval-for pulm embolism/aspirational pneumonia Unassyn for PNA if not improving add Vanco 2/Pulmonay embolis, and subclvian artery clot.. -Heparin drip, Lupus anticoagulant pending if positive will change to coumadin -Heme consult DrCecilia recommend changing to coumadin if lupus anticoagulat positive 3/ Aspiration pneumonia, meets sepsis criteria (no severe feature--elevated INR d/t anticoagulation -treat with unasyn, Augmentin at disscharge. 4/COPD with exacerbation -Bronchodilators by Neb, Solumedrol 5/mild protein calory malnutrition--consider Ensure 6/History of rheumatoid arthritis: Methotreaxate 7/History of chronic back pain/vertebral compression fractures:? Pain control. 8History of DVT: Patient currently on heparin drip.? Home Eliquis held. 9/History of dysphagia: Patient was on pureed diet.? Consider MBS given repeat aspirations. Quality Stroke Does the patient have a stroke diagnosis?: No VTE Prior VTE?: Yes VTE Risk Level:: Medical - moderate - high VTE Device Contraindication: Treatment Not Tolerated VTE Drug Contraindication: N/A - Med Ordered
--- NOTE | 2021-06-20 16:23 | MHC.SL.SWA ---
Speech Pathologist Impression: Pharyngeal Dysphagia Risk of Aspiration Due to: History of Pneumonia Dysphasia Diet Status: Upgrade Liquid Consistency and Strategies for Safe Swallow: Liquid Intake Recommendation: Honey Thick Liquid Intake Strategies: Small Sips No Straws Solid Food Consistency: Dietary Recommendations: Chopped/Advanced (NDD3) Additional Modifications to Solid Foods: Avoid mixed consistencies (liquids w/solids) Oral Medication Intake: Crushed with Puree Compensatory Strategies and Precautions to be Taken for Safe Swallow: Sitting Upright (90 deg) No Straw Liquids from Cup Alternate Liquids/Solids Supervision While Eating and Drinking for Safe Swallow: Total Supervision (1:1) Foods to Avoid: Avoid mixed consistencies of food, e.g. thin liquids with solids (cereals, soups) as well as thin gravies with meals. Swallowing Recommended Treatments: Compens. Strategy Educat. Recommendation for Speech: Inpatient Speech Therapy Comment: Pt has well documented pharyngeal phase dysphagia, with carina aspiration of thin consistencies as demonstrated on previous MBSS. Pt has large hiatal hernia which is likely affecting swallow mechanism. Pt also likely silently aspirates, so she is not aware of material entering her airway. Pt additionally has history of rejecting dietary aspiration precautions and lapsing from precautions after hospital stay. Pt additionally is edentulous, and has difficulty masticating and managing difficult to chew foods. Pt protests wanting a regular diet, and due to refusal to eat any other consistency during last stay, was given regular food w/ nectar thick liquids. Given her aspiration risk, the presence of thin liquids in aspects of a regular diet, her difficulty chewing tough foods, recommend Chopped/Advanced (NDD3) w/ HONEY THICK liquids to start, w/ Pills CRUSHED in PUREE. On 06/20/21 Pt reports tolerating recommended solid food diet w/o complaint. Pt was noted to be NON COMPLIANT w/ liquid recommendation, w/large cup of jose c josh w/ straw at bedside. Nursing advised that Pt habitually obtains foods and liquids that are not recommended and needs close monitor that she does not access during inpatient stay. Recommend CONTINUE on CHOPPED/ADVANCED (NDD3) w/ HONEY THICK liquids, w/ close monitor during meals due to aspiration risk, Pt impulsivity, Pt accessing inappropriate foods and liquids. Frequency/Duration: ALLOCATION ANALYST to follow M-F while inpt Date Range for Service Req: Timeline to reassess: Power Truck Driver Clinican/Clinical Fellow: No Supervisory Statement: I have reviewed and agree with the student/clinical fellow's documentation: N/A Speech Language Pathologist: Carisa Irizarry M.A., CCC-ALLOCATION ANALYST
--- NOTE | 2021-06-20 19:51 | PC.NURSE ---
Assumed care of pt at 1900. Heparin gtt infusing, repeat PTT draw delayed d/t pt being difficult stick. Will adjust pending results. Third warehouse delivery manager at bedside at this time to reattempt lab collection. Pt alert and oriented but intermittently yelling. Call light at hand, attached to tele monitor. Awaiting inpt bed
[2021-06-20 20:10] LABS: PTT Heparin Drip 54.4 SEC (53-77.9)
[2021-06-20] MEDS: Zolpidem Tartrate 5 MG TABLET PO (20:28)
[2021-06-20] MEDS: bisacodyL 5 MG TABLET.DR 10 MG PO (20:29)
[2021-06-20] MEDS: Melatonin 3 MG TABLET 6 MG PO (20:30)
[2021-06-20] MEDS: Cyanocobalamin (Vitamin B-12) 1,000 MCG TABLET 1000 MCG PO (20:30)
[2021-06-20 20:42] VITALS: BP 157/81; PULSE 109; RESP 19; TEMP 36.4; O2SAT 97
[2021-06-20] MEDS: LORazepam 0.5 MG TABLET PO (21:29)
--- NOTE | 2021-06-20 22:01 | PC.NURSE ---
Pt 2000 PTT result 54.4, per protocol no bolus, heparin gtt to remain at 18 units/kg/hr, redraw due 020
--- NOTE | 2021-06-20 23:12 | PC.NURSE ---
Pt heparin gtt running in EJ IV, only other access point R AC. Able to flush R AC PIV but difficult to infuse abx d/t pt bending arm. Pt educated repeatedly on need to keep arm straight but is not able to follow this instruction. For this reason, IV med administration is delayed
[2021-06-21] VITALS (10 sets, daily range): BP systolic 129–162; BP diastolic 72–94; PULSE 65–120; RESP 16–25; TEMP 36.6–37.2; O2SAT 89–93
--- NOTE | 2021-06-21 00:21 | PC.NURSE ---
Medication delay continues as previously noted. MD Coffey made aware. Orders to administer PO augmentin in lieu of IV ampicillin- 2100 dose of ampicillin did not infuse. 2200 dose of vancomycin also not administered for same reason. Per MD Coffey, okay to delay vanco until AM. Will endorse to day shift
[2021-06-21] MEDS: Amoxicillin/Potassium Clav 875 MG TABLET PO (02:15)
[2021-06-21] MEDS: Acetaminophen 325 MG TABLET 650 MG PO (02:15)
[2021-06-21 02:17] LABS: PTT Heparin Drip 68.3 SEC (53-77.9)
[2021-06-21 02:35] LABS: Estimated Glomerular Filt Rate > 60
--- NOTE | 2021-06-21 03:25 | PC.NURSE ---
PTT HD result from 0200 68.3, per protocol no change, heparin gtt remains at 18 units/kg/hr. Next draw 0800
[2021-06-21] MEDS: Omeprazole 40 MG CAPSULE.DR PO ×2 (06:11→16:38)
[2021-06-21] MEDS: methylPREDNISolone Sod Succ 40 MG/ML VIAL IVPUSH ×3 (06:13→17:25)
[2021-06-21] MEDS: Heparin Sodium,Porcine/1/2NS 25,000 UNIT/250 ML IV.SOLN 10.61 UNIT IVCONT (07:09)
[2021-06-21] MEDS: Albuterol/Iprat 2.5/0.5MG 3 ML AMPUL.NEB INHALE ×3 (08:22→20:21)
[2021-06-21 08:26] LABS: Hematocrit 35.4 % (37.0-47.0); Mean Corpuscular HGB Conc 28.2 g/dl (31.0-35.0); Mean Corpuscular Hemoglobin 21.1 pg (27.0-33.0); Mean Corpuscular Volume 74.8 fL (80.0-98.0); Mean Platelet Volume 10.1 fL (9.4-12.3); Platelet Count 365 X10*3/uL (160-400); Red Blood Count 4.73 X10*6/uL (4.20-5.50); Red Cell Distribution Width 29.2 % (11.0-16.0); White Blood Count 18.7 X10*3/uL (4.8-10.8)
[2021-06-21] MEDS: Famotidine/PF 20 MG/2 ML VIAL IVPUSH ×2 (08:40→21:07)
[2021-06-21] MEDS: Pregabalin 150 MG CAPSULE PO ×3 (08:40→21:06)
[2021-06-21] MEDS: Ampicillin Sodium/Sulbactam Na 3 GM in 0.9 % Sodium Chloride 100 ML IV ×3 (08:40→21:07)
[2021-06-21] MEDS: Folic Acid 1 MG TABLET PO ×2 (08:40→21:07)
[2021-06-21 08:44] LABS: PTT Heparin Drip 75.2 SEC (53-77.9)
[2021-06-21 09:04] LABS: Anion Gap 9 (12-20); Blood Urea Nitrogen 9 mg/dL (9-16); Calcium 9.5 mg/dL (8.4-10.2); Carbon Dioxide 32 mmol/L (22-29); Chloride 107 mmol/L (96-108); Creatinine Clr Calc Pharmacy 78.3; Estimated Glomerular Filt Rate > 60; Glucose Random 117 mg/dL (60-115); Sodium 144 mmol/L (135-145)
--- NOTE | 2021-06-21 11:44 | P.PNIM_ITS ---
Subjective Subjective Date of Service: 06/21/21 Interval History: f/u Acute hypoxemic respiratory failure secondary to aspiration pneumonia, pulmonary embolism, COPD.--She continues to improve doing well. No respiratory issues Review of Systems Shortness of breath is better no fever Physical Exam Vital Signs: Vital Signs: Last Vital Signs Temp 98.2 F 06/21/21 10:13 Pulse 76 06/21/21 11:24 Resp 22 H 06/21/21 11:24 BP 129/72 06/21/21 10:13 Pulse Ox 90 L 06/21/21 10:13 BMI result Body Mass Index 24.5 Const: Other: Constitutional: Alert, in no distress, cachectic Mental Status: Oriented to person, place and time. Respiratory: tight air movment, rhonchi bilateral Cardiovascular: S1 S2 regular. No murmurs, rubs or gallops. Gastrointestinal: Abdomen soft, non-tender, non-distended. Normal bowel sounds.? Neurologic: Cranial nerves II-XII grossly intact. No focal neurological deficits. Moves all extremities spontaneously.? Skin: No rashes or lesions.? Musculoskeletal: No cyanosis or clubbing. Psychiatric: Normal mood and affect? Objective Data Active Medications Acetaminophen (Acetaminophen 325 Mg Tablet) 650 mg PO Q6H PRN PRN Reason: Pain, Mild (Pain Scale 1-3) Last Admin: 06/21/21 02:15 Dose: 650 mg Documented by: SILVIO Al Hydroxide/Mg Hydroxide (Magnesium Hydrox/Alum Hydrox 30 Ml Oral.Susp) 30 ml PO Q4H PRN PRN Reason: Heartburn/Nausea Albuterol Sulfate (Albuterol Sulfate (0.083%) 2.5 Mg/3 Ml Vial.Neb) 2.5 mg INHALE Q2H PRN PRN Reason: Shortness of Breath/Wheezing Albuterol/Ipratropium (Albuterol/Iprat 2.5/0.5mg 3 Ml Ampul.Neb) 3 ml INHALE RQ4H WHILE AWAKE [facility] Last Admin: 06/21/21 11:23 Dose: 3 ml Documented by: BLAFELICIA Bisacodyl (Bisacodyl 5 Mg Tablet.Dr) 10 mg PO BEDTIME [facility] Last Admin: 06/20/21 20:29 Dose: 10 mg Documented by: SILVIO Cyanocobalamin (Cyanocobalamin (Vitamin B-12) 1,000 Mcg Tablet) 1,000 mcg PO BEDTIME [facility] Last Admin: 06/20/21 20:30 Dose: 1,000 mcg Documented by: SILVIO Docusate Sodium (Docusate Sodium 100 Mg Capsule) 100 mg PO BID [facility] Last Admin: 06/21/21 08:11 Dose: Not Given Documented by: LINH Non-Admin Reason: Patient Refused Famotidine (Famotidine/Pf 20 Mg/2 Ml Vial) 20 mg IVPUSH BID [facility] Last Admin: 06/21/21 08:40 Dose: 20 mg Documented by: LINH Folic Acid (Folic Acid 1 Mg Tablet) 1 mg PO BID [facility] Last Admin: 06/21/21 08:40 Dose: 1 mg Documented by: LINH Heparin Sodium (Porcine) (Heparin Sodium,Porcine 5,000 Unit/Ml Vial) 2,400 unit 40 unit/kg (2400 unit) IVPUSH PROTOCOL BOLUS PRN; Protocol PRN Reason: 40 unit/kg - Heparin Protocol Last Admin: 06/19/21 01:19 Dose: 2,400 unit Documented by: RADHA Heparin Sodium (Porcine) (Heparin Sodium,Porcine 5,000 Unit/Ml Vial) 4,700 unit 80 unit/kg (4700 unit) IVPUSH PROTOCOL BOLUS PRN; Protocol PRN Reason: 80 unit/kg - Heparin Protocol Last Admin: 06/18/21 09:25 Dose: 4,700 unit Documented by: LINH Heparin Sodium/Sodium Chloride () 25,000 unit in 250 mls @ 0 mls/hr IVCONT .Q0M [facility]; Protocol Last Titration: 06/21/21 09:00 Dose: 18 units/kg/hr, 10.61 mls/hr Documented by: LINH Cosigned by: JEREMY Vancomycin HCl 1,250 mg/ (Sodium Chloride) 250 mls @ 166.667 mls/hr IV Q24H [facility] Ampicillin Sodium/Sulbactam (Sodium 3 gm/ Sodium Chloride) 100 mls @ 200 mls/hr IV Q6H [facility] Last Infusion: 06/21/21 09:21 Dose: 0 mls/hr Documented by: LINH Lorazepam (Lorazepam 1 Mg Tablet) 1 mg PO DAILY PRN PRN Reason: Anxiety Last Admin: 06/20/21 08:45 Dose: 1 mg Documented by: FLAKITA Melatonin (Melatonin 3 Mg Tablet) 6 mg PO BEDTIME PRN PRN Reason: Insomnia Last Admin: 06/20/21 20:30 Dose: 6 mg Documented by: SILVIO Methotrexate (Methotrexate Sodium 2.5 Mg Tablet) 10 mg PO SA@0900 [facility] Methylprednisolone Sodium Succinate (Methylprednisolone Sod Succ 40 Mg/Ml Vial) 40 mg IVPUSH Q6H [facility] Last Admin: 06/21/21 06:13 Dose: 40 mg Documented by: SILVIO Nicotine (Nicotine 14 Mg Patch.Td24) 14 mg TRANSDERMA DAILY [facility] Last Admin: 06/21/21 08:11 Dose: Not Given Documented by: LINH Non-Admin Reason: Patient Refused Non-Formulary Medication (Linaclotide [Linzess]) 290 mcg PO BEDTIME [facility] Non-Formulary Medication (Risedronate) 1 tab PO .QMONTH [facility] Non-Formulary Medication (Umeclidinium-Vilanterol [Anoro Ellipta]) 1 inhalation INHALE DAILY [facility] Omeprazole (Omeprazole 40 Mg Capsule.) 40 mg PO BID@0630,1630 [facility] Last Admin: 06/21/21 06:11 Dose: 40 mg Documented by: SILVIO Ondansetron HCl (Ondansetron Hcl 4 Mg/2 Ml Vial) 4 mg IVPUSH Q8H PRN PRN Reason: Nausea and Vomiting Pharmacy Consult (Consult Rx Vancomycin Dosing) 1 each MISCELLANE DAILY PRN PRN Reason: Consult order Pregabalin (Pregabalin 150 Mg Capsule) 150 mg PO TID [facility] Last Admin: 06/21/21 08:40 Dose: 150 mg Documented by: LINH Sodium Chloride (0.9 % Sodium Chloride Flush 3 Ml Syringe) 3 ml IVFLUSH QSHIFT [facility] Last Admin: 06/21/21 08:10 Dose: Not Given Documented by: LINH Non-Admin Reason: Med Not Available Zolpidem Tartrate (Zolpidem Tartrate 5 Mg Tablet) 5 mg PO BEDTIME PRN PRN Reason: Insomnia Last Admin: 06/20/21 20:28 Dose: 5 mg Documented by: HO.GEARSS Labs CBC & Chem 7: 06/21/21 08:07 06/21/21 08:07 Labs: Laboratory Results - last 24 hr 06/20/21 06/20/21 06/21/21 11:43 19:56 02:01 MCV MCH MCHC RDW Plt Count MPV Absolute Nucleated RBC Nucleated RBC % (auto) PTT (Heparin Protocol) 60.1 D 54.4 Anion Gap Estim Creat Clear Calc 74.0 Estimated GFR > 60 Random Glucose Calcium 06/21/21 06/21/21 06/21/21 02:01 08:07 08:07 MCV 74.8 L MCH 21.1 L MCHC 28.2 L RDW 29.2 H Plt Count 365 MPV 10.1 Absolute Nucleated RBC 0.000 Nucleated RBC % (auto) 0.0 PTT (Heparin Protocol) 68.3 D 75.2 Anion Gap Estim Creat Clear Calc Estimated GFR Random Glucose Calcium 06/21/21 08:07 MCV MCH MCHC RDW Plt Count MPV Absolute Nucleated RBC Nucleated RBC % (auto) PTT (Heparin Protocol) Anion Gap 9 L Estim Creat Clear Calc 78.3 Estimated GFR > 60 Random Glucose 117 H Calcium 9.5 Microbiology Microbiology Results: Microbiology 06/18/21 14:46 Urine Culture - Final Urine Catheterized - Straight Catheter Enterococcus faecalis 06/18/21 04:56 Blood Culture - Preliminary Blood - Venous No growth after 48 hours. 06/18/21 04:56 Blood Culture - Preliminary Blood - Venous No growth after 48 hours. Assessment and Plan (1) Pulmonary embolism: Status: Acute Assessment and Plan: 76-year-old female with a past medical history of rheumatoid arthritis, tobacco dependence, vertebral compression fracture, chronic back pain, iron deficiency anemia, history of recurrent UTIs, history of diastolic heart failure, COPD, ILD, chronic respiratory failure on 4 L of home oxygen, history of left lower extremity DVT? and had been on Eliquis. 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 She left AMA on 06/16/21 because I was worry about my cat . She comes back today with increasing shortness of breath and found by EMS to be severely hypoxic with oxygen saturation in the 60s on 4 liters.? CTA of chest shows?Subsegmental right middle lobe pulmonary emboli. 2.? Worsening bilateral lower lobe consolidations compared to prior. 1/Acute on chronic hypoxic respiratoy failure d/t copd exacerbation, aspiration penumonia and pulmonary embolism -Adress underlying issues as below -O2 to treat hypoxia -Morphine PRN for respiratory distresss pulm folllowing Unassyn for PNA if not improving add Vanco 2/Pulmonay embolis, and subclvian artery clot.. -Heparin drip, Lupus anticoagulant pending if positive will change to coumadin -Heme consult DrCecilia recommend changing to coumadin if lupus anticoagulat positive--still pending 3/ Aspiration pneumonia, meets sepsis criteria (no severe feature--elevated INR d/t anticoagulation -treat with unasyn, Augmentin at disscharge. 4/COPD with exacerbation -Bronchodilators by Neb, Solumedrol--to Prednisone today 5/mild protein calory malnutrition--consider Ensure 6/History of rheumatoid arthritis: Methotreaxate 7/History of chronic back pain/vertebral compression fractures:? Pain control. 8History of DVT: Patient currently on heparin drip.? Home Eliquis held. 9/History of dysphagia: Patient was on pureed diet.? Consider MBS given repeat aspirations. Quality Stroke Does the patient have a stroke diagnosis?: No VTE Prior VTE?: Yes VTE Risk Level:: Medical - moderate - high VTE Device Contraindication: Treatment Not Tolerated VTE Drug Contraindication: N/A - Med Ordered
[2021-06-21] MEDS: vancomycin HCL 1,250 MG in 0.9 % Sodium Chloride 250 ML 166.67 MG IV (11:52)
[2021-06-21 15:27] LABS: PTT Heparin Drip 69.2 SEC (53-77.9)
--- NOTE | 2021-06-21 15:49 | PC.NURSE ---
report given to Namita EDGAR to assume care.
[2021-06-21] MEDS: 0.9 % Sodium Chloride Flush 3 ML SYRINGE IVFLUSH ×2 (16:38→17:25)
[2021-06-21] MEDS: Docusate Sodium 100 MG CAPSULE PO (21:05)
[2021-06-21] MEDS: bisacodyL 5 MG TABLET.DR 10 MG PO (21:06)
[2021-06-21] MEDS: Cyanocobalamin (Vitamin B-12) 1,000 MCG TABLET 1000 MCG PO (21:06)
[2021-06-22] VITALS (9 sets, daily range): BP systolic 114–155; BP diastolic 65–79; PULSE 78–110; RESP 18–22; TEMP 36.1–37; O2SAT 90–95
[2021-06-22] MEDS: methylPREDNISolone Sod Succ 40 MG/ML VIAL IVPUSH ×4 (00:49→17:31)
[2021-06-22] MEDS: Heparin Sodium,Porcine/1/2NS 25,000 UNIT/250 ML IV.SOLN 10.61 UNIT IVCONT (02:08)
[2021-06-22] MEDS: Ampicillin Sodium/Sulbactam Na 3 GM in 0.9 % Sodium Chloride 100 ML IV ×4 (03:49→22:12)
[2021-06-22] MEDS: Omeprazole 40 MG CAPSULE.DR PO ×2 (05:31→15:29)
[2021-06-22 06:33] LABS: Creatinine Clr Calc Pharmacy 59.8; Estimated Glomerular Filt Rate > 60
[2021-06-22 06:37] LABS: PTT Heparin Drip 68.9 SEC (53-77.9)
[2021-06-22] MEDS: Albuterol/Iprat 2.5/0.5MG 3 ML AMPUL.NEB INHALE ×2 (07:47→20:23)
[2021-06-22] MEDS: 0.9 % Sodium Chloride Flush 3 ML SYRINGE IVFLUSH ×2 (09:10→15:30)
[2021-06-22] MEDS: Pregabalin 150 MG CAPSULE PO ×3 (09:10→22:12)
[2021-06-22] MEDS: Folic Acid 1 MG TABLET PO ×2 (09:11→22:12)
[2021-06-22] MEDS: Docusate Sodium 100 MG CAPSULE PO (09:11)
[2021-06-22] MEDS: Famotidine/PF 20 MG/2 ML VIAL IVPUSH ×2 (09:12→22:12)
[2021-06-22] MEDS: Acetaminophen 325 MG TABLET 650 MG PO (09:44)
[2021-06-22] MEDS: LORazepam 1 MG TABLET PO (09:45)
--- NOTE | 2021-06-22 12:21 | P.PNIM_ITS ---
Subjective Subjective Date of Service: 06/23/21 Interval History: f/u Acute hypoxemic respiratory failure secondary to aspiration pneumonia, pulmonary embolism, COPD.--doing well, no new issues, lupus anticoauglant negative. Review of Systems Shortness of breath is better no fever Physical Exam Vital Signs: Vital Signs: Last Vital Signs Temp 97 F 06/22/21 10:52 Pulse 108 H 06/22/21 10:52 Resp 18 06/22/21 10:52 BP 114/65 06/22/21 10:52 Pulse Ox 91 L 06/22/21 10:52 BMI result Body Mass Index 24.5 Const: Other: Constitutional: Alert, in no distress, cachectic Mental Status: Oriented to person, place and time. Respiratory: tight air movment, rhonchi bilateral Cardiovascular: S1 S2 regular. No murmurs, rubs or gallops. Gastrointestinal: Abdomen soft, non-tender, non-distended. Normal bowel sounds.? Neurologic: Cranial nerves II-XII grossly intact. No focal neurological deficits. Moves all extremities spontaneously.? Skin: No rashes or lesions.? Musculoskeletal: No cyanosis or clubbing. Psychiatric: Normal mood and affect? Objective Data Active Medications Acetaminophen (Acetaminophen 325 Mg Tablet) 650 mg PO Q6H PRN PRN Reason: Pain, Mild (Pain Scale 1-3) Last Admin: 06/22/21 09:44 Dose: 650 mg Documented by: BLOSSOM Al Hydroxide/Mg Hydroxide (Magnesium Hydrox/Alum Hydrox 30 Ml Oral.Susp) 30 ml PO Q4H PRN PRN Reason: Heartburn/Nausea Albuterol Sulfate (Albuterol Sulfate (0.083%) 2.5 Mg/3 Ml Vial.Neb) 2.5 mg INHALE Q2H PRN PRN Reason: Shortness of Breath/Wheezing Albuterol/Ipratropium (Albuterol/Iprat 2.5/0.5mg 3 Ml Ampul.Neb) 3 ml INHALE RQ4H WHILE AWAKE [facility] Last Admin: 06/22/21 11:21 Dose: Not Given Documented by: HEATHER Non-Admin Reason: Patient Refused Bisacodyl (Bisacodyl 5 Mg Tablet.) 10 mg PO BEDTIME [facility] Last Admin: 06/21/21 21:06 Dose: 10 mg Documented by: DANIAL Cyanocobalamin (Cyanocobalamin (Vitamin B-12) 1,000 Mcg Tablet) 1,000 mcg PO BEDTIME [facility] Last Admin: 06/21/21 21:06 Dose: 1,000 mcg Documented by: DANIAL Docusate Sodium (Docusate Sodium 100 Mg Capsule) 100 mg PO BID [facility] Last Admin: 06/22/21 09:11 Dose: 100 mg Documented by: BLOSSOM Famotidine (Famotidine/Pf 20 Mg/2 Ml Vial) 20 mg IVPUSH BID [facility] Last Admin: 06/22/21 09:12 Dose: 20 mg Documented by: BLOSSOM Folic Acid (Folic Acid 1 Mg Tablet) 1 mg PO BID [facility] Last Admin: 06/22/21 09:11 Dose: 1 mg Documented by: BLOSSOM Heparin Sodium (Porcine) (Heparin Sodium,Porcine 5,000 Unit/Ml Vial) 2,400 unit 40 unit/kg (2400 unit) IVPUSH PROTOCOL BOLUS PRN; Protocol PRN Reason: 40 unit/kg - Heparin Protocol Last Admin: 06/19/21 01:19 Dose: 2,400 unit Documented by: RADHA Heparin Sodium (Porcine) (Heparin Sodium,Porcine 5,000 Unit/Ml Vial) 4,700 unit 80 unit/kg (4700 unit) IVPUSH PROTOCOL BOLUS PRN; Protocol PRN Reason: 80 unit/kg - Heparin Protocol Last Admin: 06/18/21 09:25 Dose: 4,700 unit Documented by: LINH Heparin Sodium/Sodium Chloride () 25,000 unit in 250 mls @ 0 mls/hr IVCONT .Q0M [facility]; Protocol Last Admin: 06/22/21 02:08 Dose: 18 units/kg/hr, 10.61 mls/hr Documented by: DANIAL Cosigned by: JACKY Ampicillin Sodium/Sulbactam (Sodium 3 gm/ Sodium Chloride) 100 mls @ 200 mls/hr IV Q6H [facility] Last Infusion: 06/22/21 10:28 Dose: 0 mls/hr Documented by: BLOSSOM Vancomycin HCl 1,250 mg/ (Sodium Chloride) 250 mls @ 166.667 mls/hr IV Q24H [facility] Lorazepam (Lorazepam 1 Mg Tablet) 1 mg PO DAILY PRN PRN Reason: Anxiety Last Admin: 06/22/21 09:45 Dose: 1 mg Documented by: BLOSSOM Melatonin (Melatonin 3 Mg Tablet) 6 mg PO BEDTIME PRN PRN Reason: Insomnia Last Admin: 06/20/21 20:30 Dose: 6 mg Documented by: SILVIO Methotrexate (Methotrexate Sodium 2.5 Mg Tablet) 10 mg PO SA@0900 [facility] Methylprednisolone Sodium Succinate (Methylprednisolone Sod Succ 40 Mg/Ml Vial) 40 mg IVPUSH Q6H [facility] Last Admin: 06/22/21 05:34 Dose: 40 mg Documented by: DANIAL Nicotine (Nicotine 14 Mg Patch.Td24) 14 mg TRANSDERMA DAILY [facility] Last Admin: 06/22/21 09:12 Dose: Not Given Documented by: BLOSSOM Non-Admin Reason: Refused Non-Formulary Medication (Linaclotide [Linzess]) 290 mcg PO BEDTIME [facility] Non-Formulary Medication (Risedronate) 1 tab PO .QMONTH [facility] Non-Formulary Medication (Umeclidinium-Vilanterol [Anoro Ellipta]) 1 inhalation INHALE DAILY [facility] Omeprazole (Omeprazole 40 Mg Capsule.Dr) 40 mg PO BID@0630,1630 [facility] Last Admin: 06/22/21 05:31 Dose: 40 mg Documented by: DANIAL Ondansetron HCl (Ondansetron Hcl 4 Mg/2 Ml Vial) 4 mg IVPUSH Q8H PRN PRN Reason: Nausea and Vomiting Pharmacy Consult (Consult Rx Vancomycin Dosing) 1 each MISCELLANE DAILY PRN PRN Reason: Consult order Pregabalin (Pregabalin 150 Mg Capsule) 150 mg PO TID [facility] Last Admin: 06/22/21 09:10 Dose: 150 mg Documented by: BLOSSOM Sodium Chloride (0.9 % Sodium Chloride Flush 3 Ml Syringe) 3 ml IVFLUSH QSHIFT [facility] Last Admin: 06/22/21 09:10 Dose: 3 ml Documented by: BLOSSOM Zolpidem Tartrate (Zolpidem Tartrate 5 Mg Tablet) 5 mg PO BEDTIME PRN PRN Reason: Insomnia Last Admin: 06/20/21 20:28 Dose: 5 mg Documented by: SILVIO Labs CBC & Chem 7: 06/21/21 08:07 06/23/21 06:13 Labs: Laboratory Results - last 24 hr 06/21/21 06/22/21 06/22/21 15:11 06:06 06:06 PTT (Heparin Protocol) 69.2 68.9 Estim Creat Clear Calc 59.8 Estimated GFR > 60 Assessment and Plan (1) Pulmonary embolism: Status: Acute Assessment and Plan: 76-year-old female with a past medical history of rheumatoid arthritis, tobacco dependence, vertebral compression fracture, chronic back pain, iron deficiency anemia, history of recurrent UTIs, history of diastolic heart failure, COPD, ILD, chronic respiratory failure on 4 L of home oxygen, history of left lower extremity DVT? and had been on Eliquis. 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 She left AMA on 06/16/21 because I was worry about my cat . She comes back today with increasing shortness of breath and found by EMS to be severely hypoxic with oxygen saturation in the 60s on 4 liters.? CTA of chest shows?Subsegmental right middle lobe pulmonary emboli. 2.? Worsening bilateral lower lobe consolidations compared to prior. 1/Acute on chronic hypoxic respiratoy failure d/t copd exacerbation, aspiration penumonia and pulmonary embolism -Adress underlying issues as below -O2 to treat hypoxia -Morphine PRN for respiratory distresss pulm folllowing Unassyn for PNA if not improving add Vanco 2/Pulmonay embolis, and subclvian artery clot.. -Heparin drip, Lupus anticoagulant pending if positive will change to coumadin -Heme consult DrCecilia recommend changing to coumadin if lupus anticoagulat positive--still pending 3/ Aspiration pneumonia, meets sepsis criteria (no severe feature--elevated INR d/t anticoagulation -treat with unasyn, Augmentin at disscharge. 4/COPD with exacerbation -Bronchodilators by Neb, Solumedrol--to Prednisone today 5/mild protein calory malnutrition--consider Ensure 6/History of rheumatoid arthritis: Methotreaxate 7/History of chronic back pain/vertebral compression fractures:? Pain control. 8History of DVT: Patient currently on heparin drip.? Home Eliquis held. 9/History of dysphagia: Patient was on pureed diet.? Consider MBS given repeat aspirations. Quality Stroke Does the patient have a stroke diagnosis?: No VTE Prior VTE?: Yes VTE Risk Level:: Medical - moderate - high VTE Device Contraindication: Treatment Not Tolerated VTE Drug Contraindication: N/A - Med Ordered
[2021-06-22] MEDS: vancomycin HCL 1,250 MG in 0.9 % Sodium Chloride 250 ML 166.67 MG IV (12:23)
[2021-06-22 13:50] LABS: Hexagonal Phase Neutralization NEGATIVE (NEGATIVE); PTT (LAC) Screen 62 sec (< OR = 40)
[2021-06-22 14:53] LABS: Prothrombin Time 11.9 SEC (9.9-13.0)
[2021-06-22] MEDS: Warfarin Sodium 5 MG TABLET PO (17:31)
[2021-06-22] MEDS: Cyanocobalamin (Vitamin B-12) 1,000 MCG TABLET 1000 MCG PO (22:12)
[2021-06-22] MEDS: Zolpidem Tartrate 5 MG TABLET PO (23:06)
[2021-06-22] MEDS: Melatonin 3 MG TABLET 6 MG PO (23:06)
[2021-06-23] VITALS (7 sets, daily range): BP systolic 127–149; BP diastolic 65–83; PULSE 48–110; RESP 20; TEMP 36.1–36.6; O2SAT 90–93
[2021-06-23] MEDS: Ampicillin Sodium/Sulbactam Na 3 GM in 0.9 % Sodium Chloride 100 ML IV ×4 (02:12→20:54)
[2021-06-23] MEDS: methylPREDNISolone Sod Succ 40 MG/ML VIAL IVPUSH ×4 (02:12→17:26)
[2021-06-23] MEDS: 0.9 % Sodium Chloride Flush 3 ML SYRINGE IVFLUSH ×4 (02:12→20:55)
[2021-06-23] MEDS: Omeprazole 40 MG CAPSULE.DR PO ×2 (05:08→16:16)
[2021-06-23] MEDS: Acetaminophen 325 MG TABLET 650 MG PO (05:08)
[2021-06-23 06:57] LABS: INTERNATIONAL NORM RATIO 1.3 (0.9-1.1); Prothrombin Time 15.3 SEC (9.9-13.0)
[2021-06-23 07:00] LABS: Creatinine Clr Calc Pharmacy 71.4; Estimated Glomerular Filt Rate > 60
[2021-06-23 07:06] LABS: PTT Heparin Drip 87.7 SEC (53-77.9)
[2021-06-23] MEDS: Folic Acid 1 MG TABLET PO ×2 (08:06→20:55)
[2021-06-23] MEDS: Famotidine/PF 20 MG/2 ML VIAL IVPUSH ×2 (08:06→20:55)
[2021-06-23] MEDS: Docusate Sodium 100 MG CAPSULE PO ×2 (08:07→20:54)
[2021-06-23] MEDS: Pregabalin 150 MG CAPSULE PO ×3 (08:07→20:55)
[2021-06-23] MEDS: Nicotine 14 MG PATCH.TD24 TRANSDERMA (08:07)
[2021-06-23 10:38] LABS: Vancomycin Trough 6.5 mcg/mL (10.0-20.0)
--- NOTE | 2021-06-23 10:49 | PHA.PROG ---
Admission Date/Time: June 18, 2021 03:36 Indication:Resp. Infection Weight in k.967 kg Adjusted body weight in Kg: [place] body weight in Kg: Obesity Dosing Indication % IBW: Serum Creatinine - Last 168 Hours 06/17/21 06/18/21 06/19/21 21:33 15:01 07:48 Creatinine 0.58 0.62 0.58 06/20/21 06/21/21 06/21/21 06:56 02:01 08:07 Creatinine 0.60 0.55 0.52 06/22/21 06/23/21 06:06 06:13 Creatinine 0.68 0.57 Estimated CrCl and GFR - Last 168 Hours 06/17/21 06/18/21 06/19/21 21:33 15:01 07:48 Estim Creat Clear Calc 70.2 65.6 70.2 Estimated GFR > 60 > 60 > 60 06/20/21 06/21/21 06/21/21 06:56 02:01 08:07 Estim Creat Clear Calc 67.8 74.0 78.3 Estimated GFR > 60 > 60 > 60 06/22/21 06/23/21 06:06 06:13 Estim Creat Clear Calc 59.8 71.4 Estimated GFR > 60 > 60 Vancomycin Loading Dose: 1250 mg Current Vancomycin Dosing Regimen: 1250 mg q24h Vancomycin Monitoring using AUC goal of 400 - 600 range with trough as surrogate marker: Predicting a AUC of 425 and trough of 10.7. Patient missed a dose on 06/20, so will give one more dose at current regimen to see where the trough lands tomorrow. Date and Time for next Vancomycin Level to be drawn: 06/24 @ 1000 Vancomycin Trough 6.5 mcg/mL (10.0-20.0) L 06/23/21 10:01 Pharmacist Comments on Vancomycin Plan: Vancomycin dosing will take advantage of Education Everytime as a clinical decision support tool that uses Bayesian modeling to calculate individual patient's pharmacokinetic parameters and forecast the patient's drug concentration time course with the target goal AUC 24 range of 400 - 600 mg/L/hr.
[2021-06-23] MEDS: Albuterol Sulfate (0.083%) 2.5 MG/3 ML VIAL.NEB INHALE (12:29)
[2021-06-23] MEDS: Albuterol/Iprat 2.5/0.5MG 3 ML AMPUL.NEB INHALE (12:46)
--- NOTE | 2021-06-23 13:04 | MHC.CM.PN ---
Per ROUNDS discussion, Patient is not yet medically cleared for dc (IV Ampicillin, IV Heparin, IV Solu Medrol); Home is the goal for dc and CM will follow for possible need to adjust the dc plan.
[2021-06-23] MEDS: vancomycin HCL 1,250 MG in 0.9 % Sodium Chloride 250 ML 166.67 MG IV (13:15)
--- NOTE | 2021-06-23 14:11 | P.PNIM_ITS ---
Subjective Subjective Date of Service: 06/23/21 Interval History: f/u Acute hypoxemic respiratory failure secondary to aspiration pneumonia, pulmonary embolism, COPD.--doing well, no new issues, lupus anticoauglant negative. Physical Exam Vital Signs: Vital Signs: Last Vital Signs Temp 97.4 F 06/23/21 11:32 Pulse 95 06/23/21 12:30 Resp 20 06/23/21 12:30 BP 127/74 06/23/21 11:32 Pulse Ox 90 L 06/23/21 11:32 BMI result Body Mass Index 24.5 Const: Other: Constitutional: Alert, in no distress, cachectic Mental Status: Oriented to person, place and time. Respiratory: tight air movment, rhonchi bilateral Cardiovascular: S1 S2 regular. No murmurs, rubs or gallops. Gastrointestinal: Abdomen soft, non-tender, non-distended. Normal bowel sounds.? Neurologic: Cranial nerves II-XII grossly intact. No focal neurological deficits. Moves all extremities spontaneously.? Skin: No rashes or lesions.? Musculoskeletal: No cyanosis or clubbing. Psychiatric: Normal mood and affect? Objective Data Active Medications Acetaminophen (Acetaminophen 325 Mg Tablet) 650 mg PO Q6H PRN PRN Reason: Pain, Mild (Pain Scale 1-3) Last Admin: 06/23/21 05:08 Dose: 650 mg Documented by: RONALD Al Hydroxide/Mg Hydroxide (Magnesium Hydrox/Alum Hydrox 30 Ml Oral.Susp) 30 ml PO Q4H PRN PRN Reason: Heartburn/Nausea Albuterol Sulfate (Albuterol Sulfate (0.083%) 2.5 Mg/3 Ml Vial.Neb) 2.5 mg INHALE Q2H PRN PRN Reason: Shortness of Breath/Wheezing Last Admin: 06/23/21 12:29 Dose: 2.5 mg Documented by: HUMPHREY Albuterol/Ipratropium (Albuterol/Iprat 2.5/0.5mg 3 Ml Ampul.Neb) 3 ml INHALE RQ4H WHILE AWAKE [facility] Last Admin: 06/23/21 12:46 Dose: 3 ml Documented by: HUMPHREY Bisacodyl (Bisacodyl 5 Mg Tablet.Dr) 10 mg PO BEDTIME [facility] Last Admin: 06/22/21 22:21 Dose: Not Given Documented by: HO.GERONIMO Non-Admin Reason: Patient Refused Cyanocobalamin (Cyanocobalamin (Vitamin B-12) 1,000 Mcg Tablet) 1,000 mcg PO BEDTIME [facility] Last Admin: 06/22/21 22:12 Dose: 1,000 mcg Documented by: DOMO Docusate Sodium (Docusate Sodium 100 Mg Capsule) 100 mg PO BID [facility] Last Admin: 06/23/21 08:07 Dose: 100 mg Documented by: VJ Famotidine (Famotidine/Pf 20 Mg/2 Ml Vial) 20 mg IVPUSH BID [facility] Last Admin: 06/23/21 08:06 Dose: 20 mg Documented by: VJ Folic Acid (Folic Acid 1 Mg Tablet) 1 mg PO BID [facility] Last Admin: 06/23/21 08:06 Dose: 1 mg Documented by: VJ Ampicillin Sodium/Sulbactam (Sodium 3 gm/ Sodium Chloride) 100 mls @ 200 mls/hr IV Q6H [facility] Last Infusion: 06/23/21 08:55 Dose: 200 mls/hr Documented by: VJ Vancomycin HCl 1,250 mg/ (Sodium Chloride) 250 mls @ 166.667 mls/hr IV Q24H [facility] Last Admin: 06/23/21 13:15 Dose: 166.67 mls/hr Documented by: VJ Melatonin (Melatonin 3 Mg Tablet) 6 mg PO BEDTIME PRN PRN Reason: Insomnia Last Admin: 06/22/21 23:06 Dose: 6 mg Documented by: DOMO Methotrexate (Methotrexate Sodium 2.5 Mg Tablet) 10 mg PO SA@0900 [facility] Methylprednisolone Sodium Succinate (Methylprednisolone Sod Succ 40 Mg/Ml Vial) 40 mg IVPUSH Q6H [facility] Last Admin: 06/23/21 13:14 Dose: 40 mg Documented by: VJ Nicotine (Nicotine 14 Mg Patch.Td24) 14 mg TRANSDERMA DAILY [facility] Last Admin: 06/23/21 08:07 Dose: 14 mg Documented by: VJ Non-Formulary Medication (Linaclotide [Linzess]) 290 mcg PO BEDTIME [facility] Non-Formulary Medication (Risedronate) 1 tab PO .QMONTH [facility] Non-Formulary Medication (Umeclidinium-Vilanterol [Anoro Ellipta]) 1 inhalation INHALE DAILY [facility] Omeprazole (Omeprazole 40 Mg Capsule.) 40 mg PO BID@0630,1630 [facility] Last Admin: 06/23/21 05:08 Dose: 40 mg Documented by: RONALD Ondansetron HCl (Ondansetron Hcl 4 Mg/2 Ml Vial) 4 mg IVPUSH Q8H PRN PRN Reason: Nausea and Vomiting Pharmacy Consult (Consult Rx Vancomycin Dosing) 1 each MISCELLANE DAILY PRN PRN Reason: Consult order Pregabalin (Pregabalin 150 Mg Capsule) 150 mg PO TID [facility] Last Admin: 06/23/21 08:07 Dose: 150 mg Documented by: VJ Rivaroxaban (Rivaroxaban 15 Mg Tablet) 15 mg PO BIDWM [facility] Sodium Chloride (0.9 % Sodium Chloride Flush 3 Ml Syringe) 3 ml IVFLUSH QSHIFT [facility] Last Admin: 06/23/21 08:16 Dose: 3 ml Documented by: VJ Labs CBC & Chem 7: 06/21/21 08:07 06/23/21 06:13 Labs: Laboratory Results - last 24 hr 06/22/21 06/22/21 06/23/21 14:30 14:30 06:13 PT Cancelled 11.9 INR Cancelled 1.0 PTT (Heparin Protocol) Estim Creat Clear Calc 71.4 Estimated GFR > 60 Vancomycin Trough 06/23/21 06/23/21 06/23/21 06:13 06:13 10:01 PT 15.3 H INR 1.3 H PTT (Heparin Protocol) 87.7 H D Estim Creat Clear Calc Estimated GFR Vancomycin Trough 6.5 L Microbiology Microbiology Results: Microbiology 06/18/21 04:56 Blood Culture - Final Blood - Venous No growth after 5 days. 06/18/21 04:56 Blood Culture - Final Blood - Venous No growth after 5 days. Assessment and Plan (1) Pulmonary embolism: Status: Acute Assessment and Plan: 76-year-old female with a past medical history of rheumatoid arthritis, tobacco dependence, vertebral compression fracture, chronic back pain, iron deficiency anemia, history of recurrent UTIs, history of diastolic heart failure, COPD, ILD, chronic respiratory failure on 4 L of home oxygen, history of left lower extremity DVT? and had been on Eliquis. 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 She left AMA on 06/16/21 because I was worry about my cat . She comes back today with increasing shortness of breath and found by EMS to be severely hypoxic with oxygen saturation in the 60s on 4 liters.? CTA of chest shows?Subsegmental right middle lobe pulmonary emboli. 2.? Worsening bilateral lower lobe consolidations compared to prior. 1/Acute on chronic hypoxic respiratoy failure d/t copd exacerbation, aspiration penumonia and pulmonary embolism -Adress underlying issues as below -O2 to treat hypoxia -Morphine PRN for respiratory distresss pulm folllowing Unassyn for PNA if not improving add Vanco 2/Pulmonay embolis, and subclvian artery clot.. -Heparin drip, Lupus anticoagulant is negative, change to Xarelto 15 bid, 3/ Aspiration pneumonia, meets sepsis criteria (no severe feature--elevated INR d/t anticoagulation -treat with unasyn, Augmentin at disscharge. 4/COPD with exacerbation -Bronchodilators by Neb, Solumedrol--to Prednisone today 5/mild protein calory malnutrition--consider Ensure 6/History of rheumatoid arthritis: Methotreaxate 7/History of chronic back pain/vertebral compression fractures:? Pain control. 8History of DVT: Xarelto 9/History of dysphagia: Patient was on pureed diet.? Consider MBS given repeat aspirations. PT recommends pulmonary rehab Quality Stroke Does the patient have a stroke diagnosis?: No VTE Prior VTE?: Yes VTE Risk Level:: Medical - moderate - high VTE Device Contraindication: Treatment Not Tolerated VTE Drug Contraindication: N/A - Med Ordered
[2021-06-23 16:10] LABS: PTT Heparin Drip 72.5 SEC (53-77.9)
--- NOTE | 2021-06-23 17:19 | PC.NURSE ---
Heparin drip d/c,verified with HERVE Shay
--- NOTE | 2021-06-23 17:20 | PC.NURSE ---
Verified D/C heparin Drip with Johanne Steele RN. Unable to document in AUG.
[2021-06-23] MEDS: Rivaroxaban 15 MG TABLET PO (17:26)
[2021-06-23] MEDS: Melatonin 3 MG TABLET 6 MG PO (20:54)
[2021-06-23] MEDS: bisacodyL 5 MG TABLET.DR 10 MG PO (20:54)
[2021-06-23] MEDS: Cyanocobalamin (Vitamin B-12) 1,000 MCG TABLET 1000 MCG PO (20:55)
[2021-06-24] VITALS (7 sets, daily range): BP systolic 124–155; BP diastolic 67–88; PULSE 104–121; RESP 16–20; TEMP 36.7–37; O2SAT 89–94
[2021-06-24] MEDS: Acetaminophen 325 MG TABLET 650 MG PO (00:12)
[2021-06-24] MEDS: methylPREDNISolone Sod Succ 40 MG/ML VIAL IVPUSH ×2 (00:12→05:58)
[2021-06-24] MEDS: Ampicillin Sodium/Sulbactam Na 3 GM in 0.9 % Sodium Chloride 100 ML IV ×4 (02:47→20:01)
[2021-06-24] MEDS: LORazepam 0.5 MG TABLET PO (02:47)
[2021-06-24] MEDS: Omeprazole 40 MG CAPSULE.DR PO ×2 (05:58→16:50)
[2021-06-24 07:06] LABS: INTERNATIONAL NORM RATIO 2.7 (0.9-1.1); Prothrombin Time 31.7 SEC (9.9-13.0)
[2021-06-24 07:23] LABS: Creatinine Clr Calc Pharmacy 67.8; Estimated Glomerular Filt Rate > 60
[2021-06-24] MEDS: Docusate Sodium 100 MG CAPSULE PO ×2 (08:41→20:01)
[2021-06-24] MEDS: Pregabalin 150 MG CAPSULE PO ×3 (08:42→20:01)
[2021-06-24] MEDS: Folic Acid 1 MG TABLET PO ×2 (08:42→20:01)
[2021-06-24] MEDS: Rivaroxaban 15 MG TABLET PO ×2 (08:42→16:50)
[2021-06-24] MEDS: metHOTREXate sodium 2.5 MG TABLET 10 MG PO (08:44)
[2021-06-24] MEDS: Famotidine/PF 20 MG/2 ML VIAL IVPUSH ×2 (08:46→20:42)
[2021-06-24] MEDS: 0.9 % Sodium Chloride Flush 3 ML SYRINGE IVFLUSH ×3 (08:56→20:05)
[2021-06-24] MEDS: vancomycin HCL 1,250 MG in 0.9 % Sodium Chloride 250 ML 166.67 MG IV (13:58)
[2021-06-24] MEDS: Albuterol/Iprat 2.5/0.5MG 3 ML AMPUL.NEB INHALE (15:35)
--- NOTE | 2021-06-24 18:10 | HO.PM.IMPN ---
Subjective Subjective Date of Service: 06/25/21 Interval History: F/u Acute hypoxemic respiratory failure secondary to aspiration pneumonia, pulmonary embolism, COPD. She had an unwitnessed fall this morning, she was reportedly trying to get out of bed to get her clothes and leave and before someone can get there she fell and hit her face. A stat CT of head showed no bleed but shows nasal bone fracture and has developed echymosis and hematoma around the left eye and foread. Aparently no report on what happened from [facility] camera. She denied hip pain, Review of Systems Shortness of breath is better no fever no headache no confusion at that time Physical Exam Vital Signs: Vital Signs: Last Vital Signs Temp 98.6 F 06/24/21 10:44 Pulse 121 H 06/24/21 16:29 Resp 20 06/24/21 16:29 BP 124/88 06/24/21 16:29 Pulse Ox 89 L 06/24/21 10:33 BMI result Body Mass Index 24.5 Const: Other: Constitutional: Alert, in no distress, cachetci Mental Status: Oriented to person, place and time. HEENT: she has left left periorbital ecchymosis, overlying hematoma above left eye, no obvious nasal deformity Respiratory: clear lung but diminished Cardiovascular: S1 S2 regular. No murmurs, rubs or gallops. Gastrointestinal: Abdomen soft, non-tender, non-distended. Normal bowel sounds.? Neurologic: Cranial nerves II-XII grossly intact. No focal neurological deficits. Moves all extremities spontaneously.? Skin: No rashes or lesions.? Musculoskeletal: No cyanosis or clubbing. Psychiatric: Normal mood and affect? Objective Data Active Medications Acetaminophen (Acetaminophen 325 Mg Tablet) 650 mg PO Q6H PRN PRN Reason: Pain, Mild (Pain Scale 1-3) Last Admin: 06/24/21 00:12 Dose: 650 mg Documented by: SHAHEEN Al Hydroxide/Mg Hydroxide (Magnesium Hydrox/Alum Hydrox 30 Ml Oral.Susp) 30 ml PO Q4H PRN PRN Reason: Heartburn/Nausea Albuterol Sulfate (Albuterol Sulfate (0.083%) 2.5 Mg/3 Ml Vial.Neb) 2.5 mg INHALE Q2H PRN PRN Reason: Shortness of Breath/Wheezing Last Admin: 06/23/21 12:29 Dose: 2.5 mg Documented by: HUMPHREY Albuterol/Ipratropium (Albuterol/Iprat 2.5/0.5mg 3 Ml Ampul.Neb) 3 ml INHALE RQ4H WHILE AWAKE [facility] Last Admin: 06/24/21 15:35 Dose: 3 ml Documented by: HUMPHREY Bisacodyl (Bisacodyl 5 Mg Tablet.Dr) 10 mg PO BEDTIME [facility] Last Admin: 06/23/21 20:54 Dose: 10 mg Documented by: SHAHEEN Cyanocobalamin (Cyanocobalamin (Vitamin B-12) 1,000 Mcg Tablet) 1,000 mcg PO BEDTIME [facility] Last Admin: 06/23/21 20:55 Dose: 1,000 mcg Documented by: SHAHEEN Docusate Sodium (Docusate Sodium 100 Mg Capsule) 100 mg PO BID [facility] Last Admin: 06/24/21 08:41 Dose: 100 mg Documented by: PERLITA Famotidine (Famotidine/Pf 20 Mg/2 Ml Vial) 20 mg IVPUSH BID [facility] Last Admin: 06/24/21 08:46 Dose: 20 mg Documented by: PERLITA Folic Acid (Folic Acid 1 Mg Tablet) 1 mg PO BID [facility] Last Admin: 06/24/21 08:42 Dose: 1 mg Documented by: PERLITA Ampicillin Sodium/Sulbactam (Sodium 3 gm/ Sodium Chloride) 100 mls @ 200 mls/hr IV Q6H [facility] Last Infusion: 06/24/21 17:48 Dose: 0 mls/hr Documented by: PERLITA Vancomycin HCl 1,250 mg/ (Sodium Chloride) 250 mls @ 166.667 mls/hr IV Q24H [facility] Last Infusion: 06/24/21 15:51 Dose: 0 mls/hr Documented by: PERLITA Lorazepam (Lorazepam 0.5 Mg Tablet) 0.25 mg PO Q6H PRN PRN Reason: Anxiety Melatonin (Melatonin 3 Mg Tablet) 6 mg PO BEDTIME PRN PRN Reason: Insomnia Last Admin: 06/23/21 20:54 Dose: 6 mg Documented by: SHAHEEN Methotrexate (Methotrexate Sodium 2.5 Mg Tablet) 10 mg PO SA@0900 [facility] Last Admin: 06/24/21 08:44 Dose: 10 mg Documented by: PERLITA Nicotine (Nicotine 14 Mg Patch.Td24) 14 mg TRANSDERMA DAILY [facility] Last Admin: 06/24/21 08:57 Dose: Not Given Documented by: PERLITA Non-Admin Reason: Patient Refused Non-Formulary Medication (Linaclotide [Linzess]) 290 mcg PO BEDTIME [facility] Non-Formulary Medication (Risedronate) 1 tab PO .QMONTH [facility] Non-Formulary Medication (Umeclidinium-Vilanterol [Anoro Ellipta]) 1 inhalation INHALE DAILY [facility] Nystatin (Nystatin Oral Susp 500,000 Unit/5 Ml Oral.Susp) 400,000 unit PO QID [facility]; Protocol Omeprazole (Omeprazole 40 Mg Capsule.Dr) 40 mg PO BID@0630,1630 [facility] Last Admin: 06/24/21 16:50 Dose: 40 mg Documented by: PERLITA Ondansetron HCl (Ondansetron Hcl 4 Mg/2 Ml Vial) 4 mg IVPUSH Q8H PRN PRN Reason: Nausea and Vomiting Oxycodone HCl (Oxycodone Hcl Immed Release 5 Mg Tablet) 5 mg PO Q6H PRN PRN Reason: Pain, Severe (Pain Scale 7-10) Pharmacy Consult (Consult Rx Vancomycin Dosing) 1 each MISCELLANE DAILY PRN PRN Reason: Consult order Pregabalin (Pregabalin 150 Mg Capsule) 150 mg PO TID [facility] Last Admin: 06/24/21 16:50 Dose: 150 mg Documented by: PERLITA Rivaroxaban (Rivaroxaban 15 Mg Tablet) 15 mg PO BIDWM [facility] Last Admin: 06/24/21 16:50 Dose: 15 mg Documented by: PERLITA Sodium Chloride (0.9 % Sodium Chloride Flush 3 Ml Syringe) 3 ml IVFLUSH QSHIFT [facility] Last Admin: 06/24/21 16:53 Dose: 3 ml Documented by: PERLITA Labs CBC & Chem 7: 06/24/21 19:45 06/25/21 05:59 Labs: Laboratory Results - last 24 hr 06/24/21 06/24/21 06:18 06:18 PT 31.7 H INR 2.7 H Estim Creat Clear Calc 67.8 Estimated GFR > 60 Assessment and Plan (1) Pulmonary embolism: Status: Acute (2) COPD (chronic obstructive pulmonary disease): Status: Acute Assessment and Plan: 76-year-old female with a past medical history of rheumatoid arthritis, tobacco dependence, vertebral compression fracture, chronic back pain, iron deficiency anemia, history of recurrent UTIs, history of diastolic heart failure, COPD, ILD, chronic respiratory failure on 4 L of home oxygen, history of left lower extremity DVT? and had been on Eliquis. 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 She left AMA on 06/16/21 because I was worry about my cat . She comes back today with increasing shortness of breath and found by EMS to be severely hypoxic with oxygen saturation in the 60s on 4 liters.? CTA of chest shows?Subsegmental right middle lobe pulmonary emboli. 2.? Worsening bilateral lower lobe consolidations compared to prior. 1/Acute on chronic hypoxic respiratoy failure d/t copd exacerbation, aspiration penumonia and pulmonary embolism -Adress underlying issues as below -O2 to treat hypoxia pulm folllowing 2/Pulmonay embolis, and subclvian artery clot.. -Heparin drip, Lupus anticoagulant is negative, changed to Xarelto 15 bid starting 06/23 on hematology advise -INR is high after 1 dose of coumadin but can be seen in with Xarelto--will continue to monitor 3/ Aspiration pneumonia, meets sepsis criteria (no severe feature--elevated INR d/t anticoagulation -treat with unasyn, Augmentin at [facility] [place] [facility]. , DC [facility] 4/COPD with exacerbation -Bronchodilators by Neb, Solumedrol--to Prednisone 5/mild protein calory malnutrition--consider Ensure 6/History of rheumatoid arthritis: Methotreaxate 7/History of chronic back pain/vertebral compression fractures:? Pain control. 8History of DVT: Xarelto 9/History of dysphagia: Patient was on pureed diet.? Consider MBS given repeat aspirations. 10/Chronic pain--Oxycodone 11/Anxieity--Atian PRN 12/ Thrush--Nystatin S&S, 13/ Accidental fall with facial injury, nasal bone fracture. She doesn't appear to be delerious, she is completly redirectable and has using [facility] for help now and with any slight deviation should have sitter PT recommends pulmonary rehab Quality Stroke Does the patient have a stroke diagnosis?: No VTE Prior VTE?: Yes VTE Risk Level:: Medical - moderate - high VTE Device Contraindication: Treatment Not Tolerated VTE Drug Contraindication: N/A - Med Ordered
[2021-06-24 19:38] LABS: Prothrombin Time 82.3 SEC (9.9-13.0)
[2021-06-24 19:51] LABS: INTERNATIONAL NORM RATIO 6.9 (0.9-1.1)
[2021-06-24 19:54] LABS: Hemoglobin 9.8 g/dl (12.0-16.0)
[2021-06-24 19:56] LABS: Hematocrit 33.9 % (37.0-47.0); Mean Corpuscular HGB Conc 28.9 g/dl (31.0-35.0); Mean Corpuscular Hemoglobin 21.6 pg (27.0-33.0); Mean Corpuscular Volume 74.8 fL (80.0-98.0); Mean Platelet Volume 9.8 fL (9.4-12.3); NRBC Pct Auto 0.1 /100WBC (0.0-0.2); Platelet Count 367 X10*3/uL (160-400); Red Blood Count 4.53 X10*6/uL (4.20-5.50); Red Cell Distribution Width 29.1 % (11.0-16.0)
[2021-06-24 19:58] LABS: PLT ABN DIST 1
[2021-06-24] MEDS: bisacodyL 5 MG TABLET.DR 10 MG PO (20:01)
[2021-06-24] MEDS: Nystatin Oral Susp 500,000 UNIT/5 ML ORAL.SUSP 400000 UNIT PO (20:01)
[2021-06-24] MEDS: Cyanocobalamin (Vitamin B-12) 1,000 MCG TABLET 1000 MCG PO (20:01)
[2021-06-24] MEDS: LORazepam 0.5 MG TABLET 0.25 MG PO (20:01)
[2021-06-24 20:02] LABS: White Blood Count 30.3 X10*3/uL (4.8-10.8)
[2021-06-24] MEDS: oxyCODONE HCl Immed Release 5 MG TABLET PO (23:12)
[2021-06-25] VITALS (7 sets, daily range): BP systolic 120–137; BP diastolic 70–85; PULSE 97–114; RESP 18–21; TEMP 36.4–37.3; O2SAT 85–97
[2021-06-25] MEDS: LORazepam 0.5 MG TABLET 0.25 MG PO (02:31)
[2021-06-25] MEDS: Ampicillin Sodium/Sulbactam Na 3 GM in 0.9 % Sodium Chloride 100 ML IV ×4 (02:37→22:56)
--- NOTE | 2021-06-25 02:54 | PC.NURSE ---
Addendum entered by Charisse Watkins RN 06/25/21 05:13: When told cxr shows asp. pna pt denies, states staff is lying to her. insists shes able to drink, pt provided mouth swabs for dry mouth. Addendum entered by Charisse Watkins RN 06/25/21 05:08: made aware that pt still unable to maintain sats on on 15LNC, Nursing patrol supervisor at bedside and Rt at bedside. placed on non rebreather 100% sats up to 94%, new order for morphine and nebs. pt accusatory to staff that staff is taking her meds. second Rn to witness morphine admin. Addendum entered by Charisse Watkins RN 06/25/21 04:12: Rn ? blood gases, no new order at this time Addendum entered by Charisse Watkins RN 06/25/21 03:56: pt placed on continuous o2 monitoring sats 84-86% RT to bedside increased to 15L NC made aware new order for CXR. pt remains requesting thin liquids from all staff stating i don't care if i aspirate right here pt 92% on 15L Original Note: pt O2 sats low 86-88%, pt yelling, tearful and anxious, stating mouth is painful, given nystatin swish and swallow and PRN oxycodone. pt very manipulative of all staff that enters room asking for thin liquids stating her diet order has change from honey thick liquids. o2 increased to 12 liters. pot given PRN ativan and thickened jose c josh. 02 up to 93 % will continue to monitor
[2021-06-25] MEDS: Morphine Sulfate 2 MG/ML CARTRIDGE 1 MG IVPUSH (05:24)
[2021-06-25 06:50] LABS: INTERNATIONAL NORM RATIO 1.8 (0.9-1.1); Prothrombin Time 21.2 SEC (9.9-13.0)
[2021-06-25 06:59] LABS: Creatinine Clr Calc Pharmacy 70.2; Estimated Glomerular Filt Rate > 60
[2021-06-25] MEDS: Folic Acid 1 MG TABLET PO ×2 (07:36→22:56)
[2021-06-25] MEDS: Docusate Sodium 100 MG CAPSULE PO ×2 (07:36→22:56)
[2021-06-25] MEDS: Rivaroxaban 15 MG TABLET PO ×2 (07:37→17:33)
[2021-06-25] MEDS: Pregabalin 150 MG CAPSULE PO ×3 (07:42→22:56)
[2021-06-25] MEDS: Famotidine/PF 20 MG/2 ML VIAL IVPUSH ×2 (07:42→22:57)
[2021-06-25] MEDS: 0.9 % Sodium Chloride Flush 3 ML SYRINGE IVFLUSH ×3 (07:51→22:57)
--- NOTE | 2021-06-25 08:51 | P.PNIM_ITS ---
Subjective Subjective Date of Service: 06/26/21 Interval History: F/u Acute hypoxemic respiratory failure secondary to aspiration pneumonia, pulmonary embolism, COPD. She had an unwitnessed fall 8 morning, she was reportedly trying to get out of bed to get her clothes and leave and before someone can get there she fell and hit her face. A stat CT of head showed no bleed but shows nasal bone fracture and has developed echymosis and hematoma around the left eye and foread. Overnight, oxygen satuation has gone down significantly and for the most part will not put on oxygen, presently on NRB. Stat CXR, ABG requested. WBC has gone up signficantly to 30 Review of Systems Gen: no fever Resp: + sob, no cough CV: no chest, no OSBORN, no leg edema GI: No n/v, no abd pain Neuro: No confusion skin: echymosis of face Physical Exam Vital Signs: Vital Signs: Last Vital Signs Temp 97.9 F 06/25/21 04:00 Pulse 111 H 06/25/21 04:00 Resp 21 H 06/25/21 04:00 BP 123/72 06/25/21 04:00 Pulse Ox 85 L 06/25/21 04:00 BMI result Body Mass Index 24.5 Const: Other: Constitutional: Alert, in no distress, cachetci Mental Status: Oriented to person, place and time. HEENT: she has rasheeda periorbital ecchymosis, overlying hematoma above left eye, no obvious nasal deformity Respiratory: clear lung but diminished Cardiovascular: S1 S2 regular. No murmurs, rubs or gallops. Gastrointestinal: Abdomen soft, non-tender, non-distended. Normal bowel sounds.? Neurologic: Cranial nerves II-XII grossly intact. No focal neurological deficits. Moves all extremities spontaneously.? Skin: No rashes or lesions.? Musculoskeletal: No cyanosis or clubbing. Psychiatric: Normal mood and affect? Objective Data Active Medications Acetaminophen (Acetaminophen 325 Mg Tablet) 650 mg PO Q6H PRN PRN Reason: Pain, Mild (Pain Scale 1-3) Last Admin: 06/24/21 00:12 Dose: 650 mg Documented by: SHAHEEN Al Hydroxide/Mg Hydroxide (Magnesium Hydrox/Alum Hydrox 30 Ml Oral.Susp) 30 ml PO Q4H PRN PRN Reason: Heartburn/Nausea Albuterol/Ipratropium (Albuterol/Iprat 2.5/0.5mg 3 Ml Ampul.Neb) 3 ml INHALE RQ4H PRN PRN Reason: Shortness of Breath/Wheezing Bisacodyl (Bisacodyl 5 Mg Tablet.Dr) 10 mg PO BEDTIME [facility] Last Admin: 06/24/21 20:01 Dose: 10 mg Documented by: SHARAN Cyanocobalamin (Cyanocobalamin (Vitamin B-12) 1,000 Mcg Tablet) 1,000 mcg PO BEDTIME [facility] Last Admin: 06/24/21 20:01 Dose: 1,000 mcg Documented by: SHARAN Docusate Sodium (Docusate Sodium 100 Mg Capsule) 100 mg PO BID [facility] Last Admin: 06/25/21 07:36 Dose: 100 mg Documented by: SHARAN Famotidine (Famotidine/Pf 20 Mg/2 Ml Vial) 20 mg IVPUSH BID [facility] Last Admin: 06/25/21 07:42 Dose: 20 mg Documented by: SHARAN Folic Acid (Folic Acid 1 Mg Tablet) 1 mg PO BID [facility] Last Admin: 06/25/21 07:36 Dose: 1 mg Documented by: SHARAN Ampicillin Sodium/Sulbactam (Sodium 3 gm/ Sodium Chloride) 100 mls @ 200 mls/hr IV Q6H [facility] Last Admin: 06/25/21 07:46 Dose: 200 mls/hr Documented by: SHARAN Lidocaine/Diphenhydr/Alum/Mg/Simeth (Mag&Al/Sim/Diphenhyd/Lidocaine 10 Ml Oral.Susp) 10 ml PO Q4H PRN; Protocol PRN Reason: Mouth Sore Pain Lorazepam (Lorazepam 0.5 Mg Tablet) 0.25 mg PO Q6H PRN PRN Reason: Anxiety Last Admin: 06/25/21 02:31 Dose: 0.25 mg Documented by: SHARAN Melatonin (Melatonin 3 Mg Tablet) 6 mg PO BEDTIME PRN PRN Reason: Insomnia Last Admin: 06/23/21 20:54 Dose: 6 mg Documented by: SHAHEEN Methotrexate (Methotrexate Sodium 2.5 Mg Tablet) 10 mg PO SA@0900 [facility] Last Admin: 06/24/21 08:44 Dose: 10 mg Documented by: PERLITA Methylprednisolone Sodium Succinate (Methylprednisolone Sod Succ 40 Mg/Ml Vial) 30 mg IVPUSH Q6H [facility] Nicotine (Nicotine 14 Mg Patch.Td24) 14 mg TRANSDERMA DAILY [facility] Last Admin: 06/25/21 07:51 Dose: Not Given Documented by: SHARAN Non-Admin Reason: Patient Refused Non-Formulary Medication (Linaclotide [Linzess]) 290 mcg PO BEDTIME [facility] Non-Formulary Medication (Risedronate) 1 tab PO .QMONTH [facility] Non-Formulary Medication (Umeclidinium-Vilanterol [Anoro Ellipta]) 1 inhalation INHALE DAILY [facility] Nystatin (Nystatin Oral Susp 500,000 Unit/5 Ml Oral.Susp) 400,000 unit PO QID [facility]; Protocol Last Admin: 06/24/21 20:01 Dose: 400,000 unit Documented by: SHARAN Omeprazole (Omeprazole 40 Mg Capsule.Dr) 40 mg PO BID@0630,1630 [facility] Last Admin: 06/25/21 05:25 Dose: Not Given Documented by: SHARAN Non-Admin Reason: NPO Ondansetron HCl (Ondansetron Hcl 4 Mg/2 Ml Vial) 4 mg IVPUSH Q8H PRN PRN Reason: Nausea and Vomiting Oxycodone HCl (Oxycodone Hcl Immed Release 5 Mg Tablet) 5 mg PO Q6H PRN PRN Reason: Pain, Severe (Pain Scale 7-10) Last Admin: 06/24/21 23:12 Dose: 5 mg Documented by: SHARAN Pharmacy Consult (Consult Rx Vancomycin Dosing) 1 each MISCELLANE DAILY PRN PRN Reason: Consult order Pregabalin (Pregabalin 150 Mg Capsule) 150 mg PO TID [facility] Last Admin: 06/25/21 07:42 Dose: 150 mg Documented by: SHARAN Rivaroxaban (Rivaroxaban 15 Mg Tablet) 15 mg PO BIDWM [facility] Last Admin: 06/25/21 07:37 Dose: 15 mg Documented by: SHARAN Sodium Chloride (0.9 % Sodium Chloride Flush 3 Ml Syringe) 3 ml IVFLUSH QSHIFT [facility] Last Admin: 06/25/21 07:51 Dose: 3 ml Documented by: HO.FIORIJ Labs CBC & Chem 7: 06/25/21 09:16 06/26/21 08:40 Labs: Laboratory Results - last 24 hr 06/24/21 06/24/21 06/25/21 19:19 19:45 05:59 MCV 74.8 L MCH 21.6 L MCHC 28.9 L RDW 29.1 H Plt Count 367 MPV 9.8 Absolute Nucleated RBC 0.020 H Nucleated RBC % (auto) 0.1 PT 82.3 H INR 6.9 H* D Estim Creat Clear Calc 70.2 Estimated GFR > 60 06/25/21 05:59 MCV MCH MCHC RDW Plt Count MPV Absolute Nucleated RBC Nucleated RBC % (auto) PT 21.2 H INR 1.8 H D Estim Creat Clear Calc Estimated GFR Assessment and Plan (1) Pulmonary embolism: Status: Acute (2) COPD (chronic obstructive pulmonary disease): Status: Acute Assessment and Plan: 76-year-old female with a past medical history of rheumatoid arthritis, tobacco dependence, vertebral compression fracture, chronic back pain, iron deficiency anemia, history of recurrent UTIs, history of diastolic heart failure, COPD, ILD, chronic respiratory failure on 4 L of home oxygen, history of left lower extremity DVT? and had been on Eliquis. 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 She left AMA on 06/16/21 because I was worry about my cat . She comes back today with increasing shortness of breath and found by EMS to be severely hypoxic with oxygen saturation in the 60s on 4 liters.? CTA of chest shows?Subsegmental right middle lobe pulmonary emboli. 2.? Worsening bilateral lower lobe consolidations compared to prior. 1/Acute on chronic hypoxic respiratoy failure d/t copd exacerbation, aspiration penumonia and pulmonary embolism -Adress underlying issues as below -O2 to treat hypoxia pulm folllowing 2/Pulmonay embolis, and subclvian artery clot.. - was pm Heparin drip, Lupus anticoagulant is negative so wwas changed to Xarelto 15 bid starting 06/23 on hematology advise -Continue Xarelto now for watching H/H closely given fall echymosis of face 3/ Aspiration pneumonia, meets sepsis criteria again with high WBC, tachycardia, will check lactic acid, repeat CXR, blood cultures, ID consult. She has been on Unassyn and Vanco was discontinue given no evidence MRSA. Given increasing WBC will restart Vanco, ID consult 4/COPD with exacerbation -Bronchodilators by Neb, Solumedrol- 5/mild protein calory malnutrition--consider Ensure 6/History of rheumatoid arthritis: Methotreaxate 7/History of chronic back pain/vertebral compression fractures:? Pain control. 8/Leukocytosis--possible reactive, sepsis related, rule out c dif 9/History of dysphagia: Patient was on pureed diet.? Consider MBS given repeat aspirations. 10/Chronic pain--Oxycodone 11/Anxieity--Atian PRN 12/ Thrush--Nystatin S&S, 13/ Accidental fall with facial injury, nasal bone fracture. She doesn't appear to be delerious, she is completly redirectable and has using [facility] for help now and with any slight deviation should have sitter PT recommends pulmonary rehab Quality Stroke Does the patient have a stroke diagnosis?: No VTE Prior VTE?: Yes VTE Risk Level:: Medical - moderate - high VTE Device Contraindication: Treatment Not Tolerated VTE Drug Contraindication: N/A - Med Ordered
[2021-06-25 09:16] LABS: ABG Base Excess 3.9 mmol/L; ABG HCO3 28 mmol/L (22-26); ABG pCO2 40 mmHg (32-45); ABG pCO2 TC 39 mmHg (32-45); ABG pH 7.45 (7.35-7.45); ABG pH TC 7.45 (7.35-7.45); ABG pO2 89 mmHg (83-108); ABG pO2 TC 87 (83-108)
[2021-06-25 09:30] LABS: Hematocrit 38.8 % (37.0-47.0); Hemoglobin 10.8 g/dl (12.0-16.0); Mean Corpuscular HGB Conc 27.8 g/dl (31.0-35.0); Mean Corpuscular Hemoglobin 21.3 pg (27.0-33.0); Mean Corpuscular Volume 76.4 fL (80.0-98.0); Mean Platelet Volume 10.2 fL (9.4-12.3); Platelet Count 339 X10*3/uL (160-400); Red Blood Count 5.08 X10*6/uL (4.20-5.50); Red Cell Distribution Width 29.4 % (11.0-16.0); White Blood Count 23.4 X10*3/uL (4.8-10.8)
[2021-06-25 09:39] LABS: Lactic Acid 3.2 mmol/L (0.5-2.0)
[2021-06-25 09:43] LABS: Anion Gap 13 (12-20); Blood Urea Nitrogen 13 mg/dL (9-16); Calcium 8.8 mg/dL (8.4-10.2); Carbon Dioxide 28 mmol/L (22-29); Chloride 106 mmol/L (96-108); Creatinine Clr Calc Pharmacy 63.6; Estimated Glomerular Filt Rate > 60; Glucose Random 132 mg/dL (60-115); Magnesium 2.4 mg/dL (1.6-2.6); Phosphorus 3.2 mg/dL (2.7-4.5); Potassium 3.8 mmol/L (3.3-5.1); Sodium 143 mmol/L (135-145)
[2021-06-25 09:47] LABS: Vancomycin Trough 8.1 mcg/mL (10.0-20.0)
[2021-06-25 10:00] LABS: Procalcitonin 0.14 ng/mL
[2021-06-25 10:54] LABS: ABG Refer to POC result
[2021-06-25 11:24] LABS: Reflex Lactate? Lactic Acid Added
[2021-06-25 11:56] LABS: ~Lactic Acid-LAB USE ONLY 1.2 mmol/L (0.5-2.0)
[2021-06-25] MEDS: Nystatin Oral Susp 500,000 UNIT/5 ML ORAL.SUSP 400000 UNIT PO ×4 (12:58→22:56)
[2021-06-25] MEDS: methylPREDNISolone Sod Succ 40 MG/ML VIAL 30 MG IVPUSH ×3 (12:58→22:57)
[2021-06-25] MEDS: Morphine Sulfate 2 MG/ML CARTRIDGE IVPUSH ×2 (12:59→22:59)
[2021-06-25 15:33] LABS: COVID-19 Test Negative (Negative); IDNOW Serial# 9DD0AD1C
[2021-06-25] MEDS: Omeprazole 40 MG CAPSULE.DR PO (17:33)
[2021-06-25] MEDS: Cyanocobalamin (Vitamin B-12) 1,000 MCG TABLET 1000 MCG PO (22:56)
[2021-06-25] MEDS: bisacodyL 5 MG TABLET.DR 10 MG PO (22:56)
[2021-06-26] VITALS (7 sets, daily range): BP systolic 128–150; BP diastolic 62–76; PULSE 69–100; RESP 18–20; TEMP 36.2–37; O2SAT 90–96
[2021-06-26] MEDS: Ampicillin Sodium/Sulbactam Na 3 GM in 0.9 % Sodium Chloride 100 ML IV ×4 (02:49→20:24)
[2021-06-26] MEDS: Morphine Sulfate 2 MG/ML CARTRIDGE IVPUSH ×3 (02:50→20:16)
[2021-06-26] MEDS: methylPREDNISolone Sod Succ 40 MG/ML VIAL 30 MG IVPUSH ×4 (02:50→20:17)
[2021-06-26] MEDS: Omeprazole 40 MG CAPSULE.DR PO ×2 (06:33→16:21)
[2021-06-26 07:43] LABS: INTERNATIONAL NORM RATIO 1.7 (0.9-1.1); Prothrombin Time 19.1 SEC (9.9-13.0)
[2021-06-26 07:56] LABS: Creatinine Clr Calc Pharmacy 76.8; Estimated Glomerular Filt Rate > 60
[2021-06-26 09:08] LABS: Anion Gap 11 (12-20); Blood Urea Nitrogen 11 mg/dL (9-16); Calcium 8.7 mg/dL (8.4-10.2); Carbon Dioxide 30 mmol/L (22-29); Chloride 102 mmol/L (96-108); Estimated Glomerular Filt Rate > 60; Glucose Random 189 mg/dL (60-115); Potassium 4.8 mmol/L (3.3-5.1); Sodium 138 mmol/L (135-145)
[2021-06-26] MEDS: Nystatin Oral Susp 500,000 UNIT/5 ML ORAL.SUSP 400000 UNIT PO ×4 (09:58→20:15)
[2021-06-26] MEDS: Folic Acid 1 MG TABLET PO ×2 (10:04→20:15)
[2021-06-26] MEDS: Pregabalin 150 MG CAPSULE PO ×3 (10:04→20:15)
[2021-06-26] MEDS: Nicotine 14 MG PATCH.TD24 TRANSDERMA (10:04)
[2021-06-26] MEDS: Docusate Sodium 100 MG CAPSULE PO ×2 (10:04→20:15)
[2021-06-26] MEDS: Rivaroxaban 15 MG TABLET PO ×2 (10:05→16:22)
[2021-06-26] MEDS: Famotidine/PF 20 MG/2 ML VIAL IVPUSH ×2 (10:05→20:16)
[2021-06-26] MEDS: 0.9 % Sodium Chloride Flush 3 ML SYRINGE IVFLUSH ×2 (10:10→16:23)
--- NOTE | 2021-06-26 10:34 | HO.PM.IMPN ---
Subjective Subjective Date of Service: 06/26/21 Interval History: F/u Acute hypoxemic respiratory failure secondary to aspiration pneumonia, pulmonary embolism, COPD. She had an unwitnessed fall /8 morning, she was reportedly trying to get out of bed to get her clothes and leave and before someone can get there she fell and hit her face. A stat CT of head showed no bleed but shows nasal bone fracture and has developed echymosis and hematoma around the left eye and foread. She has been incerasingly more hypoxic presently on 15 liters. Review of Systems Gen: no fever Resp: + sob, no cough CV: no chest, no OSBORN, no leg edema GI: No n/v, no abd pain Neuro: No confusion skin: echymosis of face Physical Exam Vital Signs: Vital Signs: Last Vital Signs Temp 97.2 F 06/26/21 07:08 Pulse 89 06/26/21 07:08 Resp 19 06/26/21 07:08 BP 133/67 06/26/21 07:08 Pulse Ox 90 L 06/26/21 07:08 BMI result Body Mass Index 24.5 Const: Other: Constitutional: Alert, in no distress, cachetci Mental Status: Oriented to person, place and time. HEENT: she has rasheeda periorbital ecchymosis, overlying hematoma above left eye, no obvious nasal deformity Respiratory: clear lung but diminished Cardiovascular: S1 S2 regular. No murmurs, rubs or gallops. Gastrointestinal: Abdomen soft, non-tender, non-distended. Normal bowel sounds.? Neurologic: Cranial nerves II-XII grossly intact. No focal neurological deficits. Moves all extremities spontaneously.? Skin: No rashes or lesions.? Musculoskeletal: No cyanosis or clubbing. Psychiatric: Normal mood and affect? Objective Data Active Medications Acetaminophen (Acetaminophen 325 Mg Tablet) 650 mg PO Q6H PRN PRN Reason: Pain, Mild (Pain Scale 1-3) Last Admin: 06/24/21 00:12 Dose: 650 mg Documented by: SHAHEEN Al Hydroxide/Mg Hydroxide (Magnesium Hydrox/Alum Hydrox 30 Ml Oral.Susp) 30 ml PO Q4H PRN PRN Reason: Heartburn/Nausea Albuterol/Ipratropium (Albuterol/Iprat 2.5/0.5mg 3 Ml Ampul.Neb) 3 ml INHALE RQ4H PRN PRN Reason: Shortness of Breath/Wheezing Bisacodyl (Bisacodyl 5 Mg Tablet.) 10 mg PO BEDTIME [facility] Last Admin: 06/25/21 22:56 Dose: 10 mg Documented by: RONALD Cyanocobalamin (Cyanocobalamin (Vitamin B-12) 1,000 Mcg Tablet) 1,000 mcg PO BEDTIME [facility] Last Admin: 06/25/21 22:56 Dose: 1,000 mcg Documented by: ANTTONY Docusate Sodium (Docusate Sodium 100 Mg Capsule) 100 mg PO BID [facility] Last Admin: 06/26/21 10:04 Dose: 100 mg Documented by: VJ Famotidine (Famotidine/Pf 20 Mg/2 Ml Vial) 20 mg IVPUSH BID [facility] Last Admin: 06/26/21 10:05 Dose: 20 mg Documented by: VJ Folic Acid (Folic Acid 1 Mg Tablet) 1 mg PO BID [facility] Last Admin: 06/26/21 10:04 Dose: 1 mg Documented by: VJ Ampicillin Sodium/Sulbactam (Sodium 3 gm/ Sodium Chloride) 100 mls @ 200 mls/hr IV Q6H [facility] Last Admin: 06/26/21 10:07 Dose: 200 mls/hr Documented by: VJ Lidocaine/Diphenhydr/Alum/Mg/Simeth (Mag&Al/Sim/Diphenhyd/Lidocaine 10 Ml Oral.Susp) 10 ml PO Q4H PRN; Protocol PRN Reason: Mouth Sore Pain Lorazepam (Lorazepam 0.5 Mg Tablet) 0.25 mg PO Q6H PRN PRN Reason: Anxiety Last Admin: 06/25/21 02:31 Dose: 0.25 mg Documented by: SHARAN Melatonin (Melatonin 3 Mg Tablet) 6 mg PO BEDTIME PRN PRN Reason: Insomnia Last Admin: 06/23/21 20:54 Dose: 6 mg Documented by: SHAHEEN Methotrexate (Methotrexate Sodium 2.5 Mg Tablet) 10 mg PO SA@0900 [facility] Last Admin: 06/24/21 08:44 Dose: 10 mg Documented by: PERLITA Methylprednisolone Sodium Succinate (Methylprednisolone Sod Succ 40 Mg/Ml Vial) 30 mg IVPUSH Q6H [facility] Last Admin: 06/26/21 10:00 Dose: 30 mg Documented by: VJ Morphine Sulfate (Morphine Sulfate 2 Mg/Ml Cartridge) 2 mg IVPUSH Q6H PRN; Protocol PRN Reason: Pain and respiratory distress Last Admin: 06/26/21 09:58 Dose: 2 mg Documented by: VJ Nicotine (Nicotine 14 Mg Patch.Td24) 14 mg TRANSDERMA DAILY [facility] Last Admin: 06/26/21 10:04 Dose: 14 mg Documented by: VJ Nystatin (Nystatin Oral Susp 500,000 Unit/5 Ml Oral.Susp) 400,000 unit PO QID [facility]; Protocol Last Admin: 06/26/21 09:58 Dose: 400,000 unit Documented by: VJ Omeprazole (Omeprazole 40 Mg Capsule.Dr) 40 mg PO BID@0630,1630 [facility] Last Admin: 06/26/21 06:33 Dose: 40 mg Documented by: RONALD Ondansetron HCl (Ondansetron Hcl 4 Mg/2 Ml Vial) 4 mg IVPUSH Q8H PRN PRN Reason: Nausea and Vomiting Oxycodone HCl (Oxycodone Hcl Immed Release 5 Mg Tablet) 5 mg PO Q6H PRN PRN Reason: Pain, Severe (Pain Scale 7-10) Last Admin: 06/24/21 23:12 Dose: 5 mg Documented by: SHARAN Pharmacy Consult (Consult Rx Vancomycin Dosing) 1 each MISCELLANE DAILY PRN PRN Reason: Consult order Pregabalin (Pregabalin 150 Mg Capsule) 150 mg PO TID [facility] Last Admin: 06/26/21 10:04 Dose: 150 mg Documented by: VJ Rivaroxaban (Rivaroxaban 15 Mg Tablet) 15 mg PO BIDWM [facility] Last Admin: 06/26/21 10:05 Dose: 15 mg Documented by: VJ Sodium Chloride (0.9 % Sodium Chloride Flush 3 Ml Syringe) 3 ml IVFLUSH QSHIFT [facility] Last Admin: 06/26/21 10:10 Dose: 3 ml Documented by: VJ Labs CBC & Chem 7: 06/25/21 09:16 06/26/21 08:40 Labs: Laboratory Results - last 24 hr 06/19/21 06/25/21 06/25/21 21:00 11:38 14:59 PT INR LA Thrombin Time TNP dRVVT Confirm Interp TNP dRVVT Mixing Study TNP dRVVT Mix Interpret TNP Anion Gap Estim Creat Clear Calc Estimated GFR Random Glucose Lactic Acid F/U @ 2Hr 1.2 Calcium COVID-19 (LAURENT) Negative COVID-19 Clin Com See Note 06/25/21 06/26/21 06/26/21 Unknown 07:17 07:17 PT 19.1 H INR 1.7 H LA Thrombin Time dRVVT Confirm Interp dRVVT Mixing Study dRVVT Mix Interpret Anion Gap Estim Creat Clear Calc 76.8 Estimated GFR > 60 Random Glucose Lactic Acid F/U @ 2Hr Calcium COVID-19 (LAURENT) Cancelled COVID-19 Clin Com Cancelled 06/26/21 08:40 PT INR LA Thrombin Time dRVVT Confirm Interp dRVVT Mixing Study dRVVT Mix Interpret Anion Gap 11 L Estim Creat Clear Calc 74.0 Estimated GFR > 60 Random Glucose 189 H Lactic Acid F/U @ 2Hr Calcium 8.7 COVID-19 ([facility]URENT) COVID-19 Clin Com Assessment and Plan (1) Pulmonary embolism: Status: Acute (2) COPD (chronic obstructive pulmonary disease): Status: Acute Assessment and Plan: 76-year-old female with a past medical history of rheumatoid arthritis, tobacco dependence, vertebral compression fracture, chronic back pain, iron deficiency anemia, history of recurrent UTIs, history of diastolic heart failure, COPD, ILD, chronic respiratory failure on 4 L of home oxygen, history of left lower extremity DVT? and had been on Eliquis. 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 She left AMA on 06/16/21 because I was worry about my cat . She comes back today with increasing shortness of breath and found by EMS to be severely hypoxic with oxygen saturation in the 60s on 4 liters.? CTA of chest shows?Subsegmental right middle lobe pulmonary emboli. 2.? Worsening bilateral lower lobe consolidations compared to prior. 1/Acute on chronic hypoxic respiratoy failure d/t copd exacerbation, aspiration penumonia and pulmonary embolism -Adress underlying issues as below -O2 to treat hypoxia pulm folllowing 2/Pulmonay embolis, and subclvian artery clot.. - was on Heparin drip, Lupus anticoagulant is negative so was changed to Xarelto 15 bid starting 06/23 on hematology advise -Continue Xarelto now but watching H/H closely given fall echymosis of face 3/ Aspiration pneumonia with sepsis, seem to be better today. Continue Unasyn. Pulmonology to reassess 4/COPD with exacerbation -Bronchodilators by Neb, Solumedrol- 5/mild protein calory malnutrition--consider Ensure 6/History of rheumatoid arthritis: Methotreaxate 7/History of chronic back pain/vertebral compression fractures:? Pain control with morphine 8/Leukocytosis--possible reactive, sepsis related, rule out c dif 9/History of dysphagia: Patient was on pureed diet.? Consider MBS given repeat aspirations. 10/Chronic pain--Oxycodone 11/Anxieity--Atian PRN 12/ Thrush--Nystatin S&S, 13/ Accidental fall with facial injury, nasal bone fracture. She doesn't appear to be delerious, she is completly redirectable and has using [facility] for help now and with any slight deviation should have sitter PT recommends pulmonary rehab at [facility] Stroke Does the patient have a stroke diagnosis?: No VTE Prior VTE?: Yes VTE Risk Level:: Medical - moderate - high VTE Device Contraindication: Treatment Not Tolerated VTE Drug Contraindication: N/A - Med Ordered
--- NOTE | 2021-06-26 12:01 | PC.NURSE ---
report given to Lauren to assume care of patient. patient moving to [id number] at this time
[2021-06-26] MEDS: LORazepam 0.5 MG TABLET 0.25 MG PO (12:53)
[2021-06-26] MEDS: oxyCODONE HCl Immed Release 5 MG TABLET PO (12:54)
--- NOTE | 2021-06-26 15:20 | PC.NURSE ---
Pt complaining about honey thick thickener, stating that it is causing the sores in her mouth. MD made aware. Speech consulted. Will continue to monitor and educate.
--- NOTE | 2021-06-26 16:49 | PM.PNPUL ---
Subjective Subjective Date of Service: 06/26/21 Interval history: The patient was seen on exam. The patient continues to be on high levels of oxygen supplementation. She had been on anticoagulation for her DVT and also PE. However, she fell out of bed and now has significant ecchymosis in the face. She continues on the Xarelto. She completed a course of antibiotics. Objective Data Labs CBC & Chem 7: 06/25/21 09:16 06/26/21 08:40 Labs: Laboratory Results - last 24 hr 06/19/21 06/26/21 06/26/21 21:00 07:17 07:17 PT 19.1 H INR 1.7 H LA Thrombin Time TNP dRVVT Confirm Interp TNP dRVVT Mixing Study TNP dRVVT Mix Interpret TNP Sodium Potassium Chloride Carbon Dioxide Anion Gap BUN Creatinine 0.53 Estim Creat Clear Calc 76.8 Estimated GFR > 60 Random Glucose Calcium 06/26/21 08:40 PT INR LA Thrombin Time dRVVT Confirm Interp dRVVT Mixing Study dRVVT Mix Interpret Sodium 138 Potassium 4.8 D Chloride 102 Carbon Dioxide 30 H Anion Gap 11 L BUN 11 Creatinine 0.55 Estim Creat Clear Calc 74.0 Estimated GFR > 60 Random Glucose 189 H Calcium 8.7 Microbiology Microbiology Results: Microbiology 06/18/21 04:56 Blood - Venous Blood Culture - Final No growth after 5 days. 06/18/21 04:56 Blood - Venous Blood Culture - Final No growth after 5 days. 06/18/21 14:46 Urine Catheterized - Straight Catheter Urine Culture - Final Enterococcus faecalis Review of Systems Constitutional: Denies daytime sleepiness, Denies excessive sweating, Denies fatigue, Denies fever(s), Denies lethargy, Denies malaise, Denies night sweats, Denies snoring and Denies weight loss Eyes: Denies blurry vision and Denies itchy eyes Denies nasal congestion, Denies post nasal drip, Denies sinus pain, Denies sinus pressure and Denies other ( Thrush) Cardiovascular: Denies chest pain, Denies pedal edema, Reports dyspnea, Denies orthopnea and Denies paroxysmal nocturnal dyspnea Respiratory: Reports cough, Denies hemoptysis, Denies excessive phlegm production, Reports dyspnea, Denies snoring and Denies wheezing Gastrointestinal: Denies abdominal pain and Denies heartburn Musculoskeletal: Denies myalgias, Denies arthralgias and Denies joint swelling Skin/Breast: Denies rash Denies memory loss and Denies seizure-like activity Psychiatric: Denies abnormal sleep pattern, Denies anxiety and Denies memory loss Endocrine: Denies excessive sweating, Denies fatigue and Denies heat intolerance Hematologic/Lymphatic: Denies easy bruising Allergic/Immunologic: Denies itchy eyes, Denies seasonal rhinorrhea and Denies wheezing Physical Exam Vital Signs: Vital Signs: Last Vital Signs Temp 98.6 F 06/26/21 15:20 Pulse 97 06/26/21 15:20 Resp 18 06/26/21 15:20 BP 128/65 06/26/21 15:20 Pulse Ox 92 06/26/21 15:20 BMI result Body Mass Index 24.5 Const: General: alert HENMT: Head: Yes contusion and Yes raccoon eyes General nose exam: Abnormal external nose present and Nasal discharge present Eyes: Pupils: Equal, round and reactive pupils present Neck: Neck: Yes normal visual inspection, Yes full ROM and Yes no lymphadenopathy Chest: Chest palpation & inspection: normal inspection of the chest Resp: Auscultation: diminished lung sounds Cardio: Rate: regular rate Rhythm: regular rhythm Heart sounds: S1 normal heart sound present and S2 normal heart sound present GI: Palpation (GI): Soft to palpation and nontender Auscultation: normal bowel sounds Neuro: Cranial nerves: Yes Equal, round and reactive pupils present Procedures Date of Service Date of Service: 06/26/21 Assessment and Plan Assessment and plan (1) Pulmonary embolism: Status: Acute (2) COPD (chronic obstructive pulmonary disease): Status: Acute (3) Respiratory failure: Status: Acute (4) Hiatal hernia: Status: Acute (5) Recurrent aspiration pneumonia: Status: Acute (6) Acute and chronic respiratory failure with hypoxia: Status: Acute (7) COPD exacerbation: Status: Acute Assessment and Plan: ISS/OOB to chair with assistance Continue solumedrol Add Breo and Spiriva Duoneb CPT with acapella valve Titrate oxygen to keep pox>88% sleep elevated Time Spent With Patient Time: Total time spent is greater than 50% in coordination of care (as documented) at patient's floor/unit and/or counseling patient: Time with patient: 15 - 24 minutes Progress Note: Quality Stroke Does the patient have a stroke diagnosis?: No
[2021-06-26] MEDS: bisacodyL 5 MG TABLET.DR 10 MG PO (20:15)
[2021-06-26] MEDS: Cyanocobalamin (Vitamin B-12) 1,000 MCG TABLET 1000 MCG PO (20:15)
--- NOTE | 2021-06-26 21:35 | P.CNID_ITS ---
History of Present Illness Data of Consult Service Date: 06/26/21 Requesting physician: Akira James Primary Care Provider: Carlos Alberto PINON Reason for consult: shortness of breath She presents to hospital with shortness of breath for a day She has been previously in hospital with cough and shortness of breath last month There was concern over aspiration and now is day 6 antibiotics (Unasyn ) for aspiration pneumonia. Review of Systems Verdana 4l Review of Systems: Yes all other systems are reviewed and Verdana 4d are negative PMFSH Past Medical History Medical History Bipolar disorder Chronic idiopathic constipation Chronic respiratory failure with hypoxia Compression fracture of T9 vertebra COPD (chronic obstructive pulmonary disease) DVT (deep venous thrombosis) DVT (deep venous thrombosis) Hiatal hernia Hiatal hernia History of diverticulitis History of treatment for tuberculosis Interstitial lung disease Iron deficiency anemia Left rib fracture Opioid abuse Peripheral neuropathy Rash Rheumatoid arthritis Rib pain on left side Rib pain on right side Family History Family history: reviewed and not pertinent Surgical History Surgical History H/O colonoscopy H/O esophagogastroduodenoscopy Social History Social History Household Members: None Housing: House Do you presently have visiting nurse or other home services: Yes (1 week) Alcohol intake: unknown Patient Tobacco Use Status: Former Tobacco user Tobacco use type: Cigarette service: No Current occupational status: retired Meds Allergies Allergy/AdvReac Type Severity Reaction Status Date / Time loratadine [From Allergy Unknown MOUTH SORE Verified 06/13/21 07:09 CLARITIN] Active Medications: Current Medications Acetaminophen (Acetaminophen 325 Mg Tablet) 650 mg PO Q6H PRN PRN Reason: Pain, Mild (Pain Scale 1-3) Last Admin: 06/24/21 00:12 Dose: 650 mg Documented by: Al Hydroxide/Mg Hydroxide (Magnesium Hydrox/Alum Hydrox 30 Ml Oral.Susp) 30 ml PO Q4H PRN PRN Reason: Heartburn/Nausea Albuterol/Ipratropium (Albuterol/Iprat 2.5/0.5mg 3 Ml Ampul.Neb) 3 ml INHALE RQ4H PRN PRN Reason: Shortness of Breath/Wheezing Bisacodyl (Bisacodyl 5 Mg Tablet.Dr) 10 mg PO BEDTIME [facility] Last Admin: 06/26/21 20:15 Dose: 10 mg Documented by: Cyanocobalamin (Cyanocobalamin (Vitamin B-12) 1,000 Mcg Tablet) 1,000 mcg PO BEDTIME [facility] Last Admin: 06/26/21 20:15 Dose: 1,000 mcg Documented by: Docusate Sodium (Docusate Sodium 100 Mg Capsule) 100 mg PO BID [facility] Last Admin: 06/26/21 20:15 Dose: 100 mg Documented by: Famotidine (Famotidine/Pf 20 Mg/2 Ml Vial) 20 mg IVPUSH BID [facility] Last Admin: 06/26/21 20:16 Dose: 20 mg Documented by: Fluticasone/Vilanterol (Fluticasone/Vilanterol 200/25 Blst.W.Dev) 1 puff INHALE RDAILY [facility] Folic Acid (Folic Acid 1 Mg Tablet) 1 mg PO BID [facility] Last Admin: 06/26/21 20:15 Dose: 1 mg Documented by: Ampicillin Sodium/Sulbactam (Sodium 3 gm/ Sodium Chloride) 100 mls @ 200 mls/hr IV Q6H [facility] Last Infusion: 06/26/21 21:08 Dose: Infused Documented by: Lidocaine/Diphenhydr/Alum/Mg/Simeth (Mag&Al/Sim/Diphenhyd/Lidocaine 10 Ml Oral.Susp) 10 ml PO Q4H PRN; Protocol PRN Reason: Mouth Sore Pain Lorazepam (Lorazepam 0.5 Mg Tablet) 0.25 mg PO Q6H PRN PRN Reason: Anxiety Last Admin: 06/26/21 12:53 Dose: 0.25 mg Documented by: Melatonin (Melatonin 3 Mg Tablet) 6 mg PO BEDTIME PRN PRN Reason: Insomnia Last Admin: 06/23/21 20:54 Dose: 6 mg Documented by: Methotrexate (Methotrexate Sodium 2.5 Mg Tablet) 10 mg PO SA@0900 [facility] Last Admin: 06/24/21 08:44 Dose: 10 mg Documented by: Methylprednisolone Sodium Succinate (Methylprednisolone Sod Succ 40 Mg/Ml Vial) 30 mg IVPUSH Q6H [facility] Last Admin: 06/26/21 20:17 Dose: 30 mg Documented by: Morphine Sulfate (Morphine Sulfate 2 Mg/Ml Cartridge) 2 mg IVPUSH Q6H PRN; Protocol PRN Reason: Pain and respiratory distress Last Admin: 06/26/21 20:16 Dose: 2 mg Documented by: Nicotine (Nicotine 14 Mg Patch.Td24) 14 mg TRANSDERMA DAILY [facility] Last Admin: 06/26/21 10:04 Dose: 14 mg Documented by: Nystatin (Nystatin Oral Susp 500,000 Unit/5 Ml Oral.Susp) 400,000 unit PO QID [facility]; Protocol Last Admin: 06/26/21 20:15 Dose: 400,000 unit Documented by: Omeprazole (Omeprazole 40 Mg Capsule.Dr) 40 mg PO BID@0630,1630 [facility] Last Admin: 06/26/21 16:21 Dose: 40 mg Documented by: Ondansetron HCl (Ondansetron Hcl 4 Mg/2 Ml Vial) 4 mg IVPUSH Q8H PRN PRN Reason: Nausea and Vomiting Oxycodone HCl (Oxycodone Hcl Immed Release 5 Mg Tablet) 5 mg PO Q6H PRN PRN Reason: Pain, Severe (Pain Scale 7-10) Last Admin: 06/26/21 12:54 Dose: 5 mg Documented by: Pregabalin (Pregabalin 150 Mg Capsule) 150 mg PO TID [facility] Last Admin: 06/26/21 20:15 Dose: 150 mg Documented by: Rivaroxaban (Rivaroxaban 15 Mg Tablet) 15 mg PO BIDWM [facility] Last Admin: 06/26/21 16:22 Dose: 15 mg Documented by: Sodium Chloride (0.9 % Sodium Chloride Flush 3 Ml Syringe) 3 ml IVFLUSH QSHIFT [facility] Last Admin: 06/26/21 16:23 Dose: 3 ml Documented by: Tiotropium [place] (Tiotropium [place] 18 Mcg Cap.W.Dev) 1 puff INHALE RDAILY [facility] Home Medications Medication Instructions Recorded Confirmed Last Taken Type cyanocobalamin 1,000 mcg PO 03/31/21 06/18/21 05/17/21 History (vitamin B-12) BEDTIME 1,000 mcg tablet docusate sodium 100 mg PO BID 03/31/21 06/18/21 05/17/21 History 100 mg capsule folic acid 1 mg 1 mg PO BID 03/31/21 06/18/21 05/17/21 History tablet methotrexate 10 mg PO SA@0900 03/31/21 06/18/21 05/13/21 History sodium 2.5 mg tablet omeprazole 40 mg 40 mg PO 03/31/21 06/18/21 05/17/21 History capsule,delayed DAILY@0630 release oxycodone 5 mg 5 mg PO TID PRN 03/31/21 06/18/21 03/30/21 History tablet umeclidinium 62.5 1 inh INHALATION 03/31/21 06/18/21 05/17/21 History mcg-vilanterol DAILY 25 mcg/actuation powdr for inhalation (Anoro Ellipta) linaclotide 290 290 mcg PO 05/18/21 06/18/21 05/17/21 History mcg capsule BEDTIME (Linzess) pregabalin 150 mg 150 mg PO TID 05/18/21 06/18/21 05/17/21 History capsule risedronate 150 1 tab PO QMONTH 05/18/21 06/18/21 05/15/21 History mg tablet zolpidem 5 mg 5 mg PO BEDTIME 05/18/21 06/18/21 Unknown History tablet PRN lorazepam 1 mg 1 mg PO DAILY 06/11/21 06/18/21 Unknown History tablet PRN prednisone 20 mg 10 mg PO DAILY 06/11/21 06/18/21 Unknown History tablet Physical Exam Verdana 4l Vital Signs: Verdana 4d Verdana 4d Vital Signs: Verdana 4d Verdana 4Bd Last Vital Signs Verdana 4d Tube Washer New 4d Tube Washer New 4d Temp 97.6 F 06/26/21 19:24 Tube Washer New 4d Pulse 100 06/26/21 19:24 Tube Washer New 4d Resp 18 06/26/21 19:24 BP 134/69 06/26/21 19:24 Pulse Ox 92 06/26/21 19:24 BMI result Body Mass Index 24.5 Const: General: cooperative HENMT: Head: Yes normal to inspection Mouth: Normal oral and palatal mucosa present Resp: Effort & Inspection: normal respiratory effort Cardio: Rate: regular rate Rhythm: regular rhythm GI: Palpation (GI): Soft to palpation and nontender Skin: General skin exam: no rashes or lesions noted Results Labs CBC & Chem 7: 06/29/21 06:09 06/29/21 06:09 Labs: BMP 06/26/21 06/26/21 07:17 08:40 Sodium 138 Potassium 4.8 D Chloride 102 Carbon Dioxide 30 H BUN 11 Creatinine 0.53 0.55 Calcium 8.7 Microbiology Microbiology Results: Microbiology 06/18/21 04:56 Blood - Venous Blood Culture - Final No growth after 5 days. 06/18/21 04:56 Blood - Venous Blood Culture - Final No growth after 5 days. 06/18/21 14:46 Urine Catheterized - Straight Catheter Urine Culture - Final Enterococcus faecalis Assessment and Plan (1) Pulmonary embolism: Status: Acute (2) Recurrent aspiration pneumonia: Status: Acute She is tolerating Unasyn She has probably gram negative and gram positive Plan Would continue Unasyn another two days Treat PE
--- NOTE | 2021-06-26 21:35 | W.PM.IDCN ---
History of Present Illness Data of Consult Service Date: 06/26/21 Requesting physician: Akira James Primary Care Provider: Carlos Alberto PINON Reason for consult: shortness of breath She presents to hospital with shortness of breath for a day She has been previously in hospital with cough and shortness of breath last month There was concern over aspiration and now is day 6 antibiotics (Unasyn ) for aspiration pneumonia. Review of Systems Review of Systems: Yes all other systems are reviewed and are negative PMFSH Past Medical History Medical History Bipolar disorder Chronic idiopathic constipation Chronic respiratory failure with hypoxia Compression fracture of T9 vertebra COPD (chronic obstructive pulmonary disease) DVT (deep venous thrombosis) DVT (deep venous thrombosis) Hiatal hernia Hiatal hernia History of diverticulitis History of treatment for tuberculosis Interstitial lung disease Iron deficiency anemia Left rib fracture Opioid abuse Peripheral neuropathy Rash Rheumatoid arthritis Rib pain on left side Rib pain on right side Family History Family history: reviewed and not pertinent Surgical History Surgical History H/O colonoscopy H/O esophagogastroduodenoscopy Social History Social History Household Members: None Housing: House Do you presently have visiting nurse or other home services: Yes (1 week) Alcohol intake: unknown Patient Tobacco Use Status: Former Tobacco user Tobacco use type: Cigarette service: No Current occupational status: retired Meds Allergies Allergy/AdvReac Type Severity Reaction Status Date / Time loratadine [From CLARITIN] Allergy Unknown MOUTH SORE Verified 06/13/21 07:09 Active Medications: Current Medications Acetaminophen (Acetaminophen 325 Mg Tablet) 650 mg PO Q6H PRN PRN Reason: Pain, Mild (Pain Scale 1-3) Last Admin: 06/24/21 00:12 Dose: 650 mg Documented by: Al Hydroxide/Mg Hydroxide (Magnesium Hydrox/Alum Hydrox 30 Ml Oral.Susp) 30 ml PO Q4H PRN PRN Reason: Heartburn/Nausea Albuterol/Ipratropium (Albuterol/Iprat 2.5/0.5mg 3 Ml Ampul.Neb) 3 ml INHALE RQ4H PRN PRN Reason: Shortness of Breath/Wheezing Bisacodyl (Bisacodyl 5 Mg Tablet.Dr) 10 mg PO BEDTIME [facility] Last Admin: 06/26/21 20:15 Dose: 10 mg Documented by: Cyanocobalamin (Cyanocobalamin (Vitamin B-12) 1,000 Mcg Tablet) 1,000 mcg PO BEDTIME [facility] Last Admin: 06/26/21 20:15 Dose: 1,000 mcg Documented by: Docusate Sodium (Docusate Sodium 100 Mg Capsule) 100 mg PO BID [facility] Last Admin: 06/26/21 20:15 Dose: 100 mg Documented by: Famotidine (Famotidine/Pf 20 Mg/2 Ml Vial) 20 mg IVPUSH BID [facility] Last Admin: 06/26/21 20:16 Dose: 20 mg Documented by: Fluticasone/Vilanterol (Fluticasone/Vilanterol 200/25 Blst.W.Dev) 1 puff INHALE RDAILY [facility] Folic Acid (Folic Acid 1 Mg Tablet) 1 mg PO BID [facility] Last Admin: 06/26/21 20:15 Dose: 1 mg Documented by: Ampicillin Sodium/Sulbactam (Sodium 3 gm/ Sodium Chloride) 100 mls @ 200 mls/hr IV Q6H [facility] Last Infusion: 06/26/21 21:08 Dose: Infused Documented by: Lidocaine/Diphenhydr/Alum/Mg/Simeth (Mag&Al/Sim/Diphenhyd/Lidocaine 10 Ml Oral.Susp) 10 ml PO Q4H PRN; Protocol PRN Reason: Mouth Sore Pain Lorazepam (Lorazepam 0.5 Mg Tablet) 0.25 mg PO Q6H PRN PRN Reason: Anxiety Last Admin: 06/26/21 12:53 Dose: 0.25 mg Documented by: Melatonin (Melatonin 3 Mg Tablet) 6 mg PO BEDTIME PRN PRN Reason: Insomnia Last Admin: 06/23/21 20:54 Dose: 6 mg Documented by: Methotrexate (Methotrexate Sodium 2.5 Mg Tablet) 10 mg PO SA@0900 [facility] Last Admin: 06/24/21 08:44 Dose: 10 mg Documented by: Methylprednisolone Sodium Succinate (Methylprednisolone Sod Succ 40 Mg/Ml Vial) 30 mg IVPUSH Q6H [facility] Last Admin: 06/26/21 20:17 Dose: 30 mg Documented by: Morphine Sulfate (Morphine Sulfate 2 Mg/Ml Cartridge) 2 mg IVPUSH Q6H PRN; Protocol PRN Reason: Pain and respiratory distress Last Admin: 06/26/21 20:16 Dose: 2 mg Documented by: Nicotine (Nicotine 14 Mg Patch.Td24) 14 mg TRANSDERMA DAILY [facility] Last Admin: 06/26/21 10:04 Dose: 14 mg Documented by: Nystatin (Nystatin Oral Susp 500,000 Unit/5 Ml Oral.Susp) 400,000 unit PO QID [facility]; Protocol Last Admin: 06/26/21 20:15 Dose: 400,000 unit Documented by: Omeprazole (Omeprazole 40 Mg Capsule.Dr) 40 mg PO BID@0630,1630 [facility] Last Admin: 06/26/21 16:21 Dose: 40 mg Documented by: Ondansetron HCl (Ondansetron Hcl 4 Mg/2 Ml Vial) 4 mg IVPUSH Q8H PRN PRN Reason: Nausea and Vomiting Oxycodone HCl (Oxycodone Hcl Immed Release 5 Mg Tablet) 5 mg PO Q6H PRN PRN Reason: Pain, Severe (Pain Scale 7-10) Last Admin: 06/26/21 12:54 Dose: 5 mg Documented by: Pregabalin (Pregabalin 150 Mg Capsule) 150 mg PO TID [facility] Last Admin: 06/26/21 20:15 Dose: 150 mg Documented by: Rivaroxaban (Rivaroxaban 15 Mg Tablet) 15 mg PO BIDWM [facility] Last Admin: 06/26/21 16:22 Dose: 15 mg Documented by: Sodium Chloride (0.9 % Sodium Chloride Flush 3 Ml Syringe) 3 ml IVFLUSH QSHIFT [facility] Last Admin: 06/26/21 16:23 Dose: 3 ml Documented by: Tiotropium [place] (Tiotropium [place] 18 Mcg Cap.W.Dev) 1 puff INHALE RDAILY [facility] Home Medications Medication Instructions Recorded Confirmed Last Taken Type cyanocobalamin (vitamin B-12) 1,000 mcg PO BEDTIME 03/31/21 06/18/21 05/17/21 History 1,000 mcg tablet docusate sodium 100 mg capsule 100 mg PO BID 03/31/21 06/18/21 05/17/21 History folic acid 1 mg tablet 1 mg PO BID 03/31/21 06/18/21 05/17/21 History methotrexate sodium 2.5 mg tablet 10 mg PO SA@0900 03/31/21 06/18/21 05/13/21 History omeprazole 40 mg capsule,delayed 40 mg PO DAILY@0630 03/31/21 06/18/21 05/17/21 History release oxycodone 5 mg tablet 5 mg PO TID PRN 03/31/21 06/18/21 03/30/21 History umeclidinium 62.5 mcg-vilanterol 1 inh INHALATION DAILY 03/31/21 06/18/21 05/17/21 History 25 mcg/actuation powdr for inhalation (Anoro Ellipta) linaclotide 290 mcg capsule 290 mcg PO BEDTIME 05/18/21 06/18/21 05/17/21 History (Linzess) pregabalin 150 mg capsule 150 mg PO TID 05/18/21 06/18/21 05/17/21 History risedronate 150 mg tablet 1 tab PO QMONTH 05/18/21 06/18/21 05/15/21 History zolpidem 5 mg tablet 5 mg PO BEDTIME PRN 05/18/21 06/18/21 Unknown History lorazepam 1 mg tablet 1 mg PO DAILY PRN 06/11/21 06/18/21 Unknown History prednisone 20 mg tablet 10 mg PO DAILY 06/11/21 06/18/21 Unknown History Physical Exam Vital Signs: Vital Signs: Last Vital Signs Temp 97.6 F 06/26/21 19:24 Pulse 100 06/26/21 19:24 Resp 18 06/26/21 19:24 BP 134/69 06/26/21 19:24 Pulse Ox 92 06/26/21 19:24 BMI result Body Mass Index 24.5 Const: General: cooperative HENMT: Head: Yes normal to inspection Mouth: Normal oral and palatal mucosa present Resp: Effort & Inspection: normal respiratory effort Cardio: Rate: regular rate Rhythm: regular rhythm GI: Palpation (GI): Soft to palpation and nontender Skin: General skin exam: no rashes or lesions noted Results Labs CBC & Chem 7: 06/29/21 06:09 06/29/21 06:09 Labs: BMP 06/26/21 06/26/21 07:17 08:40 Sodium 138 Potassium 4.8 D Chloride 102 Carbon Dioxide 30 H BUN 11 Creatinine 0.53 0.55 Calcium 8.7 Microbiology Microbiology Results: Microbiology 06/18/21 04:56 Blood - Venous Blood Culture - Final No growth after 5 days. 06/18/21 04:56 Blood - Venous Blood Culture - Final No growth after 5 days. 06/18/21 14:46 Urine Catheterized - Straight Catheter Urine Culture - Final Enterococcus faecalis Assessment and Plan (1) Pulmonary embolism: Status: Acute (2) Recurrent aspiration pneumonia: Status: Acute She is tolerating Unasyn She has probably gram negative and gram positive Plan Would continue Unasyn another two days Treat PE
[2021-06-27] VITALS (10 sets, daily range): BP systolic 126–162; BP diastolic 70–86; PULSE 89–118; RESP 18–21; TEMP 36.3–37.1; O2SAT 85–98
[2021-06-27] MEDS: 0.9 % Sodium Chloride Flush 3 ML SYRINGE IVFLUSH ×4 (00:41→23:43)
[2021-06-27] MEDS: Melatonin 3 MG TABLET 6 MG PO (01:00)
[2021-06-27] MEDS: LORazepam 0.5 MG TABLET 0.25 MG PO ×2 (01:00→11:49)
[2021-06-27] MEDS: Mag&Al/Sim/Diphenhyd/Lidocaine 10 ML ORAL.SUSP PO (01:06)
[2021-06-27] MEDS: methylPREDNISolone Sod Succ 40 MG/ML VIAL 30 MG IVPUSH ×4 (02:48→20:13)
[2021-06-27] MEDS: Ampicillin Sodium/Sulbactam Na 3 GM in 0.9 % Sodium Chloride 100 ML IV ×4 (02:50→20:10)
[2021-06-27] MEDS: Morphine Sulfate 2 MG/ML CARTRIDGE IVPUSH ×3 (04:08→23:44)
[2021-06-27 04:58] LABS: PLT ABN DIST 1; Red Cell Distribution Width 28.9 % (11.0-16.0)
[2021-06-27 05:00] LABS: Hematocrit 35.8 % (37.0-47.0); Hemoglobin 9.9 g/dl (12.0-16.0); Mean Corpuscular HGB Conc 27.7 g/dl (31.0-35.0); Mean Corpuscular Hemoglobin 21.3 pg (27.0-33.0); Mean Corpuscular Volume 77.2 fL (80.0-98.0); PLT CLUMP 1; Red Blood Count 4.64 X10*6/uL (4.20-5.50)
[2021-06-27 05:03] LABS: INTERNATIONAL NORM RATIO 1.5 (0.9-1.1); Prothrombin Time 16.7 SEC (9.9-13.0)
[2021-06-27 05:06] LABS: White Blood Count 13.1 X10*3/uL (4.8-10.8)
[2021-06-27 05:18] LABS: Anion Gap 13 (12-20); Blood Urea Nitrogen 14 mg/dL (9-16); Calcium 8.9 mg/dL (8.4-10.2); Carbon Dioxide 27 mmol/L (22-29); Chloride 103 mmol/L (96-108); Creatinine Clr Calc Pharmacy 72.7; Estimated Glomerular Filt Rate > 60; Glucose Random 179 mg/dL (60-115); Potassium 4.2 mmol/L (3.3-5.1); Sodium 139 mmol/L (135-145)
[2021-06-27 05:25] LABS: Platelet Count 343 X10*3/uL (160-400)
[2021-06-27] MEDS: Omeprazole 40 MG CAPSULE.DR PO ×2 (05:32→15:42)
[2021-06-27] MEDS: Docusate Sodium 100 MG CAPSULE PO ×2 (07:27→20:16)
[2021-06-27] MEDS: Folic Acid 1 MG TABLET PO ×2 (07:27→20:16)
[2021-06-27] MEDS: oxyCODONE HCl Immed Release 5 MG TABLET PO (07:27)
[2021-06-27] MEDS: Nystatin Oral Susp 500,000 UNIT/5 ML ORAL.SUSP 400000 UNIT PO ×4 (07:28→20:14)
[2021-06-27] MEDS: Rivaroxaban 15 MG TABLET PO ×2 (07:28→16:46)
[2021-06-27] MEDS: Famotidine/PF 20 MG/2 ML VIAL IVPUSH ×2 (07:29→20:12)
[2021-06-27] MEDS: Fluticasone/Vilanterol 200/25 BLST.W.DEV 1 PUFF INHALE (08:24)
[2021-06-27] MEDS: Pregabalin 150 MG CAPSULE PO ×3 (08:27→20:15)
--- NOTE | 2021-06-27 10:10 | HO.PM.IMPN ---
Subjective Subjective Date of Service: 06/27/21 Interval History: f/u on respiratory, copd, asp pneumonia, sepsis---overall is making progress Review of Systems Gen: no fever Resp: + sob, no cough CV: no chest, no OSBORN, no leg edema GI: No n/v, no abd pain Neuro: No confusion skin: echymosis of face Physical Exam Vital Signs: Vital Signs: Last Vital Signs Temp 97.3 F 06/27/21 07:49 Pulse 105 H 06/27/21 08:25 Resp 20 06/27/21 08:25 BP 134/72 06/27/21 07:49 Pulse Ox 93 06/27/21 07:49 BMI result Body Mass Index 24.5 Const: Other: Constitutional: Alert, in no distress, cachetci Mental Status: Oriented to person, place and time. HEENT: she has rasheeda periorbital ecchymosis, overlying hematoma above left eye, no obvious nasal deformity Respiratory: clear lung but diminished Cardiovascular: S1 S2 regular. No murmurs, rubs or gallops. Gastrointestinal: Abdomen soft, non-tender, non-distended. Normal bowel sounds.? Neurologic: Cranial nerves II-XII grossly intact. No focal neurological deficits. Moves all extremities spontaneously.? Skin: No rashes or lesions.? Musculoskeletal: No cyanosis or clubbing. Psychiatric: Normal mood and affect? Objective Data Active Medications Acetaminophen (Acetaminophen 325 Mg Tablet) 650 mg PO Q6H PRN PRN Reason: Pain, Mild (Pain Scale 1-3) Last Admin: 06/24/21 00:12 Dose: 650 mg Documented by: SHAHEEN Al Hydroxide/Mg Hydroxide (Magnesium Hydrox/Alum Hydrox 30 Ml Oral.Susp) 30 ml PO Q4H PRN PRN Reason: Heartburn/Nausea Albuterol/Ipratropium (Albuterol/Iprat 2.5/0.5mg 3 Ml Ampul.Neb) 3 ml INHALE RQ4H PRN PRN Reason: Shortness of Breath/Wheezing Bisacodyl (Bisacodyl 5 Mg Tablet.) 10 mg PO BEDTIME [facility] Last Admin: 06/26/21 20:15 Dose: 10 mg Documented by: EFREN Cyanocobalamin (Cyanocobalamin (Vitamin B-12) 1,000 Mcg Tablet) 1,000 mcg PO BEDTIME [facility] Last Admin: 06/26/21 20:15 Dose: 1,000 mcg Documented by: EFREN Docusate Sodium (Docusate Sodium 100 Mg Capsule) 100 mg PO BID [facility] Last Admin: 06/27/21 07:27 Dose: 100 mg Documented by: KARO Famotidine (Famotidine/Pf 20 Mg/2 Ml Vial) 20 mg IVPUSH BID [facility] Last Admin: 06/27/21 07:29 Dose: 20 mg Documented by: KARO Fluticasone/Vilanterol (Fluticasone/Vilanterol 200/25 Blst.W.Dev) 1 puff INHALE RDAILY [facility] Last Admin: 06/27/21 08:24 Dose: 1 puff Documented by: ULRICC Folic Acid (Folic Acid 1 Mg Tablet) 1 mg PO BID [facility] Last Admin: 06/27/21 07:27 Dose: 1 mg Documented by: KARO Ampicillin Sodium/Sulbactam (Sodium 3 gm/ Sodium Chloride) 100 mls @ 200 mls/hr IV Q6H [facility] Last Infusion: 06/27/21 09:45 Dose: 0 mls/hr Documented by: KARO Lidocaine/Diphenhydr/Alum/Mg/Simeth (Mag&Al/Sim/Diphenhyd/Lidocaine 10 Ml Oral.Susp) 10 ml PO Q4H PRN; Protocol PRN Reason: Mouth Sore Pain Last Admin: 06/27/21 01:06 Dose: 10 ml Documented by: EFREN Lorazepam (Lorazepam 0.5 Mg Tablet) 0.25 mg PO Q6H PRN PRN Reason: Anxiety Last Admin: 06/27/21 01:00 Dose: 0.25 mg Documented by: EFREN Melatonin (Melatonin 3 Mg Tablet) 6 mg PO BEDTIME PRN PRN Reason: Insomnia Last Admin: 06/27/21 01:00 Dose: 6 mg Documented by: EFREN Methotrexate (Methotrexate Sodium 2.5 Mg Tablet) 10 mg PO SA@0900 [facility] Last Admin: 06/24/21 08:44 Dose: 10 mg Documented by: PERLITA Methylprednisolone Sodium Succinate (Methylprednisolone Sod Succ 40 Mg/Ml Vial) 30 mg IVPUSH Q6H [facility] Last Admin: 06/27/21 07:27 Dose: 30 mg Documented by: KARO Morphine Sulfate (Morphine Sulfate 2 Mg/Ml Cartridge) 2 mg IVPUSH Q6H PRN; Protocol PRN Reason: Pain and respiratory distress Last Admin: 06/27/21 04:08 Dose: 2 mg Documented by: EFREN Nicotine (Nicotine 14 Mg Patch.Td24) 14 mg TRANSDERMA DAILY [facility] Last Admin: 06/27/21 08:26 Dose: Not Given Documented by: KARO Non-Admin Reason: Patient Refused Nystatin (Nystatin Oral Susp 500,000 Unit/5 Ml Oral.Susp) 400,000 unit PO QID [facility]; Protocol Last Admin: 06/27/21 07:28 Dose: 400,000 unit Documented by: KARO Omeprazole (Omeprazole 40 Mg Capsule.Dr) 40 mg PO BID@0630,1630 [facility] Last Admin: 06/27/21 05:32 Dose: 40 mg Documented by: EFREN Ondansetron HCl (Ondansetron Hcl 4 Mg/2 Ml Vial) 4 mg IVPUSH Q8H PRN PRN Reason: Nausea and Vomiting Oxycodone HCl (Oxycodone Hcl Immed Release 5 Mg Tablet) 5 mg PO Q6H PRN PRN Reason: Pain, Severe (Pain Scale 7-10) Last Admin: 06/27/21 07:27 Dose: 5 mg Documented by: KARO Pregabalin (Pregabalin 150 Mg Capsule) 150 mg PO TID [facility] Last Admin: 06/27/21 08:27 Dose: 150 mg Documented by: KARO Rivaroxaban (Rivaroxaban 15 Mg Tablet) 15 mg PO BIDWM [facility] Last Admin: 06/27/21 07:28 Dose: 15 mg Documented by: KARO Sodium Chloride (0.9 % Sodium Chloride Flush 3 Ml Syringe) 3 ml IVFLUSH QSHIFT [facility] Last Admin: 06/27/21 07:29 Dose: 3 ml Documented by: KARO Tiotropium [place] (Tiotropium [place] 18 Mcg Cap.W.Dev) 1 puff INHALE RDAILY [facility] Last Admin: 06/27/21 08:24 Dose: 1 puff Documented by: ULRICC Labs CBC & Chem 7: 06/27/21 04:26 06/27/21 04:26 Labs: Laboratory Results - last 24 hr 06/27/21 06/27/21 06/27/21 04:26 04:26 04:26 MCV 77.2 L MCH 21.3 L MCHC 27.7 L RDW 28.9 H Plt Count 343 MPV TNP Absolute Nucleated RBC 0.000 Nucleated RBC % (auto) 0.0 PT 16.7 H INR 1.5 H Anion Gap 13 Estim Creat Clear Calc 72.7 Estimated GFR > 60 Random Glucose 179 H Calcium 8.9 Assessment and Plan (1) Pulmonary embolism: Status: Acute (2) COPD (chronic obstructive pulmonary disease): Status: Acute Assessment and Plan: 76-year-old female with a past medical history of rheumatoid arthritis, tobacco dependence, vertebral compression fracture, chronic back pain, iron deficiency anemia, history of recurrent UTIs, history of diastolic heart failure, COPD, ILD, chronic respiratory failure on 4 L of home oxygen, history of left lower extremity DVT? and had been on Eliquis. 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 She left AMA on 06/16/21 because I was worry about my cat . She comes back today with increasing shortness of breath and found by EMS to be severely hypoxic with oxygen saturation in the 60s on 4 liters.? CTA of chest shows?Subsegmental right middle lobe pulmonary emboli. 2.? Worsening bilateral lower lobe consolidations compared to prior. 1/Acute on chronic hypoxic respiratoy failure d/t copd exacerbation, aspiration penumonia and pulmonary embolism -Adress underlying issues as below -O2 to treat hypoxia pulm folllowing 2/Pulmonay embolis, and subclvian artery clot.. - was on Heparin drip, Lupus anticoagulant is negative so was changed to Xarelto 15 bid starting 06/23 on hematology advise -Continue Xarelto now but watching H/H closely given fall echymosis of face 3/ Aspiration pneumonia with sepsis, seem to be better today. Continue Unasyn, change to oral tomorrow. 4/COPD with exacerbation -Bronchodilators by Neb, Solumedrol--> Prednisone 5/mild protein calory malnutrition--consider Ensure 6/History of rheumatoid arthritis: Methotreaxate 7/History of chronic back pain/vertebral compression fractures:? Pain control with morphine 8/Leukocytosis--possible reactive, sepsis related, rule out c dif 9/History of dysphagia: Patient was on pureed diet.? Consider MBS given repeat aspirations. 10/Chronic pain--Oxycodone 11/Anxieity--Atian PRN 12/ Thrush--Nystatin S&S, 13/ Accidental fall with facial injury, nasal bone fracture. She doesn't appear to be delerious, she is completly redirectable and has using [facility] for help now and with any slight deviation should have sitter PT recommends pulmonary rehab at [facility] Stroke Does the patient have a stroke diagnosis?: No VTE Prior VTE?: Yes VTE Risk Level:: Medical - moderate - high VTE Device Contraindication: Treatment Not Tolerated VTE Drug Contraindication: N/A - Med Ordered
--- NOTE | 2021-06-27 13:31 | MHC.SL.SWA ---
Speech Pathologist Impression: Pharyngeal Dysphagia Risk of Aspiration Due to: History of Pneumonia Dysphasia Diet Status: Upgrade Liquid Consistency and Strategies for Safe Swallow: Liquid Intake Recommendation: Honey Thick Liquid Intake Strategies: Small Sips No Straws Solid Food Consistency: Dietary Recommendations: Chopped/Advanced (NDD3) Additional Modifications to Solid Foods: Avoid mixed consistencies (liquids w/solids) Oral Medication Intake: Crushed with Puree Compensatory Strategies and Precautions to be Taken for Safe Swallow: Sitting Upright (90 deg) No Straw Liquids from Cup Alternate Liquids/Solids Supervision While Eating and Drinking for Safe Swallow: Total Supervision (1:1) Foods to Avoid: Avoid mixed consistencies of food, e.g. thin liquids with solids (cereals, soups) as well as thin gravies with meals. Swallowing Recommended Treatments: Compens. Strategy Educat. Recommendation for Speech: Inpatient Speech Therapy Comment: Pt has well documented pharyngeal phase dysphagia, with carina aspiration of thin consistencies as demonstrated on previous MBSS. Pt has large hiatal hernia which is likely affecting swallow mechanism. Pt also likely silently aspirates, so she is not aware of material entering her airway. Pt additionally has history of rejecting dietary aspiration precautions and lapsing from precautions after hospital stay. Pt additionally is edentulous, and has difficulty masticating and managing difficult to chew foods. on 06/27/21 a.m. Pt seen for treatment. Cup w/water and straw present at bedside, removed by txist. Pt was immediately argumentative w/ therapist, complained that she had mouth sores from recommended thickening of liquid. On inspection of oral structures, PT presents w/no evidence of mouth sores. Pt w/ complaints about medical staff and threatened to leave (also threatened to get up and get pitcher of ice for herself). Pt agitated when presented w/honey thick liquid for swallow trial, refused. Pt accepted jello as a swallow trial, but continued agitated, given Jello to self administer. Coughing noted on second swallow of self administered Jello. Pt continued w/multiple c/o and neglected continuing to eat Jello, but also refused when TX offered to take it away. Pt stated that MD had given her pitcher full of ICE, pitcher was present w/small amount of thickened water in it. Pt given water thickened to honey consistency w/Ice visible in Pitcher when presented, but then secured w/ top when left at bedside. Recommend continue on CHOPPED/ADVANCED (NDD3) w/ HONEY THICK liquids ONLY, Pt needs supervision during meals as she is impulsive and at risk for aspiration. Please closely monitor that Pt does not get access to inappropriate liquids and foods. Date Range for Service Req: Timeline to reassess: Epic Professional Clinican/Clinical Fellow: No Supervisory Statement: I have reviewed and agree with the student/clinical fellow's documentation: N/A Speech Language Pathologist: Carisa Irizarry M.A., CCC-AUTOMATION CONTROL TECHNICIAN
--- NOTE | 2021-06-27 16:03 | PC.NURSE ---
Addendum entered by Johanne Steele RN 06/27/21 17:00: patient medicated with Morphine for pain ,sat 94% on 14 l of oxygen via [place] cannula Original Note: P sat 85 % on 12 l of oxygen via [place] cannula I respiratory notified of need for updraft,oxygen increased to 14 as advised,patient repositioned e will monitor
[2021-06-27] MEDS: bisacodyL 5 MG TABLET.DR 10 MG PO (20:15)
[2021-06-27] MEDS: Cyanocobalamin (Vitamin B-12) 1,000 MCG TABLET 1000 MCG PO (20:16)
[2021-06-28] MEDS: Ampicillin Sodium/Sulbactam Na 3 GM in 0.9 % Sodium Chloride 100 ML IV (03:20)
[2021-06-28 03:22] VITALS: BP 140/75; PULSE 103; RESP 18; TEMP 37.2; O2SAT 94
[2021-06-28] MEDS: methylPREDNISolone Sod Succ 40 MG/ML VIAL 30 MG IVPUSH ×4 (03:26→21:54)
[2021-06-28] MEDS: Morphine Sulfate 2 MG/ML CARTRIDGE IVPUSH ×2 (06:39→21:56)
[2021-06-28] MEDS: Omeprazole 40 MG CAPSULE.DR PO ×2 (06:39→18:05)
[2021-06-28 08:00] VITALS: BP 125/72; PULSE 78; RESP 19; TEMP 36.6; O2SAT 93
[2021-06-28] MEDS: 0.9 % Sodium Chloride Flush 3 ML SYRINGE IVFLUSH ×3 (08:11→21:56)
[2021-06-28] MEDS: LORazepam 0.5 MG TABLET 0.25 MG PO ×2 (08:11→21:56)
[2021-06-28] MEDS: oxyCODONE HCl Immed Release 5 MG TABLET PO ×2 (08:11→12:09)
[2021-06-28] MEDS: Docusate Sodium 100 MG CAPSULE PO ×2 (09:16→21:55)
[2021-06-28] MEDS: Rivaroxaban 15 MG TABLET PO ×2 (09:16→18:06)
[2021-06-28] MEDS: Nystatin Oral Susp 500,000 UNIT/5 ML ORAL.SUSP 400000 UNIT PO ×4 (09:16→21:54)
[2021-06-28] MEDS: Folic Acid 1 MG TABLET PO ×2 (09:16→21:55)
[2021-06-28] MEDS: Famotidine/PF 20 MG/2 ML VIAL IVPUSH ×2 (09:17→21:54)
[2021-06-28] MEDS: Nicotine 14 MG PATCH.TD24 TRANSDERMA (09:17)
[2021-06-28] MEDS: Pregabalin 150 MG CAPSULE PO ×3 (09:18→21:55)
--- NOTE | 2021-06-28 09:18 | P.PNPL_ITS ---
Subjective Subjective Date of Service: 06/28/21 Interval history: The patient was seen on exam. The patient is extremely difficult. She has been very upset about the thickened liquids. In the meantime her oxygen requirements are slowly decreasing. I was able to get her an Oxymizer pendant and brought it down to 10 L. I am hopeful that she does use the Oxymizer pendant that we can continue tapering her down to a level that she can tolerate at home. The patient wants to go home. She understands that with the level of oxygen she has she her will from not having of oxygen. The patient acknowledges this and she is okay with that. I did offer hospice. But she states that has been skilled her sister so she does not want. She does have family at home not clear how much support she will have. She is tolerating her blood thinners. She continues to be tachycardic and the possibility of chronic thromboembolic disease is in the differential specially with the additional clot she had. This could result and pulmonary hypertension and worsening hypoxia. Repeating an echocardiogram will be a reasonable option. Objective Data Labs CBC & Chem 7: 06/27/21 04:26 06/27/21 04:26 Microbiology Microbiology Results: Microbiology 06/18/21 04:56 Blood - Venous Blood Culture - Final No growth after 5 days. 06/18/21 04:56 Blood - Venous Blood Culture - Final No growth after 5 days. 06/18/21 14:46 Urine Catheterized - Straight Catheter Urine Culture - Final Enterococcus faecalis Review of Systems Constitutional: Denies daytime sleepiness, Denies excessive sweating, Denies fatigue, Denies fever(s), Denies lethargy, Denies malaise, Denies night sweats, Denies snoring and Denies weight loss Eyes: Denies blurry vision and Denies itchy eyes Denies nasal congestion, Denies post nasal drip, Denies sinus pain, Denies sinus pressure and Denies other ( Thrush) Cardiovascular: Denies chest pain, Denies pedal edema, Reports dyspnea, Denies orthopnea and Denies paroxysmal nocturnal dyspnea Respiratory: Reports cough, Denies hemoptysis, Denies excessive phlegm production, Reports dyspnea, Denies snoring and Denies wheezing Gastrointestinal: Denies abdominal pain and Denies heartburn Musculoskeletal: Denies myalgias, Denies arthralgias and Denies joint swelling Skin/Breast: Denies rash Denies memory loss and Denies seizure-like activity Psychiatric: Denies abnormal sleep pattern, Denies anxiety and Denies memory loss Endocrine: Denies excessive sweating, Denies fatigue and Denies heat intolerance Hematologic/Lymphatic: Denies easy bruising Allergic/Immunologic: Denies itchy eyes, Denies seasonal rhinorrhea and Denies wheezing Physical Exam Vital Signs: Vital Signs: Last Vital Signs Temp 97.8 F 06/28/21 08:00 Pulse 78 06/28/21 08:00 Resp 19 06/28/21 08:00 BP 125/72 06/28/21 08:00 Pulse Ox 93 06/28/21 08:00 BMI result Body Mass Index 24.5 Const: General: alert Neck: Neck: Yes normal visual inspection, Yes full ROM and Yes no lymphadenopathy Chest: Chest palpation & inspection: normal inspection of the chest Resp: Auscultation: diminished lung sounds Cardio: Rate: tachycardic Rhythm: regular rhythm Heart sounds: S1 normal heart sound present and S2 normal heart sound present GI: Palpation (GI): Soft to palpation and nontender Auscultation: normal bowel sounds Skin: General skin exam: rashes and/or lesions noted Procedures Date of Service Date of Service: 06/28/21 Assessment and Plan Assessment and plan (1) Pulmonary embolism: Status: Acute (2) COPD (chronic obstructive pulmonary disease): Status: Acute (3) Hiatal hernia: Status: Acute (4) Recurrent aspiration pneumonia: Status: Acute (5) Acute and chronic respiratory failure with hypoxia: Status: Acute Assessment and Plan: Switch oxygen delivery to Oxymizer pendant 10 L. Titrate to maintain a pulse ox above 88% Continue antibiotics as per ID Continue anticoagulation lifelong Continue with dysphagia diet Consider repeating echocardiogram. If there is any evidence of pulmonary hypertension she may benefit from vasodilator therapy Continue respiratory therapy Goals of care should be discussed with patient and also the family. The patient does have progressive respiratory disease. She is upset about certain medical interventions such as her dysphagia diet. This issues should be discuss and finalize as far as her goals of care. The patient will be a good candidate for palliative care. Time Spent With Patient Time: Total time spent is greater than 50% in coordination of care (as docum ented) at patient's floor/unit and/or counseling patient: Time with patient: 15 - 24 minutes Progress Note: Quality Stroke Does the patient have a stroke diagnosis?: No
[2021-06-28 11:21] LABS: INTERNATIONAL NORM RATIO 1.8 (0.9-1.1)
--- NOTE | 2021-06-28 13:54 | HO.PM.IMPN ---
Subjective Subjective Date of Service: 06/28/21 Interval History: no acute issues overnight; remains agitated Review of Systems denies chest pain Denies shortness of breath Denies nausea vomiting diarrhea Physical Exam Vital Signs: Vital Signs: Last Vital Signs Temp 97.8 F 06/28/21 08:00 Pulse 78 06/28/21 08:00 Resp 19 06/28/21 08:00 BP 125/72 06/28/21 08:00 Pulse Ox 93 06/28/21 08:00 BMI result Body Mass Index 24.5 Const: Other: no acute distress Resp: Other: clear to auscultation bilaterally no rales rhonchi or wheezes Cardio: Other: no S4; positive S1-S2; no S3 murmurs of to gallops GI: Other: soft nontender nondistended with normoactive bowel sounds Extrem: Other: no edema bilaterally Objective Data Active Medications Acetaminophen (Acetaminophen 325 Mg Tablet) 650 mg PO Q6H PRN PRN Reason: Pain, Mild (Pain Scale 1-3) Last Admin: 06/24/21 00:12 Dose: 650 mg Documented by: SHAHEEN Al Hydroxide/Mg Hydroxide (Magnesium Hydrox/Alum Hydrox 30 Ml Oral.Susp) 30 ml PO Q4H PRN PRN Reason: Heartburn/Nausea Albuterol/Ipratropium (Albuterol/Iprat 2.5/0.5mg 3 Ml Ampul.Neb) 3 ml INHALE RQ4H PRN PRN Reason: Shortness of Breath/Wheezing Bisacodyl (Bisacodyl 5 Mg Tablet.) 10 mg PO BEDTIME [facility] Last Admin: 06/27/21 20:15 Dose: 10 mg Documented by: VERITO Cyanocobalamin (Cyanocobalamin (Vitamin B-12) 1,000 Mcg Tablet) 1,000 mcg PO BEDTIME [facility] Last Admin: 06/27/21 20:16 Dose: 1,000 mcg Documented by: VERITO Docusate Sodium (Docusate Sodium 100 Mg Capsule) 100 mg PO BID [facility] Last Admin: 06/28/21 09:16 Dose: 100 mg Documented by: ZACKARY Famotidine (Famotidine/Pf 20 Mg/2 Ml Vial) 20 mg IVPUSH BID [facility] Last Admin: 06/28/21 09:17 Dose: 20 mg Documented by: ZACKARY Fluticasone/Vilanterol (Fluticasone/Vilanterol 200/25 Blst.W.Dev) 1 puff INHALE RDAILY [facility] Last Admin: 06/28/21 08:58 Dose: Not Given Documented by: ALEXANDER Non-Admin Reason: Patient Refused Folic Acid (Folic Acid 1 Mg Tablet) 1 mg PO BID [facility] Last Admin: 06/28/21 09:16 Dose: 1 mg Documented by: ZACKARY Lidocaine/Diphenhydr/Alum/Mg/Simeth (Mag&Al/Sim/Diphenhyd/Lidocaine 10 Ml Oral.Susp) 10 ml PO Q4H PRN; Protocol PRN Reason: Mouth Sore Pain Last Admin: 06/27/21 01:06 Dose: 10 ml Documented by: EFREN Lorazepam (Lorazepam 0.5 Mg Tablet) 0.25 mg PO Q6H PRN PRN Reason: Anxiety Last Admin: 06/28/21 08:11 Dose: 0.25 mg Documented by: NELLY Comments: [id number] Melatonin (Melatonin 3 Mg Tablet) 6 mg PO BEDTIME PRN PRN Reason: Insomnia Last Admin: 06/27/21 01:00 Dose: 6 mg Documented by: EFREN Methotrexate (Methotrexate Sodium 2.5 Mg Tablet) 10 mg PO SA@0900 [facility] Last Admin: 06/24/21 08:44 Dose: 10 mg Documented by: PERLITA Methylprednisolone Sodium Succinate (Methylprednisolone Sod Succ 40 Mg/Ml Vial) 30 mg IVPUSH Q6H [facility] Last Admin: 06/28/21 09:17 Dose: 30 mg Documented by: ZACKARY Morphine Sulfate (Morphine Sulfate 2 Mg/Ml Cartridge) 2 mg IVPUSH Q6H PRN; Protocol PRN Reason: Pain and respiratory distress Last Admin: 06/28/21 06:39 Dose: 2 mg Documented by: CONCHIS Nicotine (Nicotine 14 Mg Patch.Td24) 14 mg TRANSDERMA DAILY [facility] Last Admin: 06/28/21 09:17 Dose: 14 mg Documented by: ZACKARY Nystatin (Nystatin Oral Susp 500,000 Unit/5 Ml Oral.Susp) 400,000 unit PO QID [facility]; Protocol Last Admin: 06/28/21 12:09 Dose: 400,000 unit Documented by: NELLY Omeprazole (Omeprazole 40 Mg Capsule.) 40 mg PO BID@0630,1630 [facility] Last Admin: 06/28/21 06:39 Dose: 40 mg Documented by: CONCHIS Ondansetron HCl (Ondansetron Hcl 4 Mg/2 Ml Vial) 4 mg IVPUSH Q8H PRN PRN Reason: Nausea and Vomiting Oxycodone HCl (Oxycodone Hcl Immed Release 5 Mg Tablet) 5 mg PO Q6H PRN PRN Reason: Pain, Severe (Pain Scale 7-10) Last Admin: 06/28/21 12:09 Dose: 5 mg Documented by: NELLY Pregabalin (Pregabalin 150 Mg Capsule) 150 mg PO TID [facility] Last Admin: 06/28/21 09:18 Dose: 150 mg Documented by: ZACKARY Rivaroxaban (Rivaroxaban 15 Mg Tablet) 15 mg PO BIDWM [facility] Last Admin: 06/28/21 09:16 Dose: 15 mg Documented by: ZACKARY Sodium Chloride (0.9 % Sodium Chloride Flush 3 Ml Syringe) 3 ml IVFLUSH QSHIFT [facility] Last Admin: 06/28/21 08:11 Dose: 3 ml Documented by: NELLY Tiotropium [place] (Tiotropium [place] 18 Mcg Cap.W.Dev) 1 puff INHALE RDAILY [facility] Last Admin: 06/28/21 08:58 Dose: Not Given Documented by: ALEXANDER Non-Admin Reason: Patient Refused Labs CBC & Chem 7: 06/27/21 04:26 06/27/21 04:26 Labs: Laboratory Results - last 24 hr 06/28/21 11:02 PT 21.0 H INR 1.8 H Assessment and Plan (1) Pulmonary embolism: Status: Acute (2) COPD (chronic obstructive pulmonary disease): Status: Acute (3) Acute and chronic respiratory failure with hypoxia: Status: Acute Assessment and Plan: 76-year-old female with a past medical history of rheumatoid arthritis, tobacco dependence, vertebral compression fracture, chronic back pain, iron deficiency anemia, history of recurrent UTIs, history of diastolic heart failure, COPD, ILD, chronic respiratory failure on 4 L of home oxygen, history of left lower extremity DVT? and had been on Eliquis. 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 She left AMA on 06/16/21 because I was worry about my cat . She comes back today with increasing shortness of breath and found by EMS to be severely hypoxic with oxygen saturation in the 60s on 4 liters.? CTA of chest shows?Subsegmental right middle lobe pulmonary emboli. 2.? Worsening bilateral lower lobe consolidations compared to prior. 1.Acute on chronic hypoxic respiratoy failure d/t copd exacerbation, aspiration penumonia Completed antibiotic therapy as per Infectious Disease Continue steroids as ordered 2.Pulmonay embolis, and subclvian artery clot.. Xarelto 15 bid starting 07/24 on hematology advise 3.COPD with exacerbation Bronchodilators by Neb, Solumedrol--> Prednisone PT recommends pulmonary rehab [facility] Stroke Does the patient have a stroke diagnosis?: No VTE Prior VTE?: Yes VTE Risk Level:: Medical - moderate - high VTE Device Contraindication: Treatment Not Tolerated VTE Drug Contraindication: N/A - Med Ordered
--- NOTE | 2021-06-28 14:59 | MHC.CM.PN ---
PATIENT IS NOT WILLING TO SPEAK WITH CASE MANAGEMENT.'SHE IS AWARE OF SHORT TERM REHAB RECOMMENDATIONS AND REFUSING. CASE MANAGEMENT TO ATTEMPT HCP AND NOTE WITH ANY PROGRESS TOWARDS.
[2021-06-28 15:45] VITALS: BP 149/91; PULSE 120; RESP 18; TEMP 36.4; O2SAT 91
--- NOTE | 2021-06-28 16:23 | MHC.CM.PN ---
PATIENT AGREES TO STAY TONIGHT SHE IS AWARE THAT SHE IS ON 12 LITRES O2 SHE ALSO SIGNS HER IMM 06/28/21 AND ASSIGNS TWO AGENTS HER HCP AGENTS. PRIMARY IS NEPHEW DREA AND SECONDARY IS FRIEND/OCULAR PATHOLOGIST, ULISES MURPHY COPY UPLOADED INTO [employer] AND PLACED IN CHART.
--- NOTE | 2021-06-28 16:55 | MHC.SLORD ---
Speech Language Pathology Order Status: When PAINT FORMULATOR attempted to see patient this afternoon x2- Patient was on the phone. When PAINT FORMULATOR returned, was notified by nursing that patient was agitated, expressing she wants to leave. Patient with recurrent aspiration pneumonia- PAINT FORMULATOR will continue to follow.
[2021-06-28 20:00] VITALS: BP 155/77; PULSE 115; RESP 18; TEMP 36.6; O2SAT 92
[2021-06-28] MEDS: Cyanocobalamin (Vitamin B-12) 1,000 MCG TABLET 1000 MCG PO (21:55)
[2021-06-28] MEDS: bisacodyL 5 MG TABLET.DR 10 MG PO (21:55)
[2021-06-28] MEDS: Melatonin 3 MG TABLET 6 MG PO (21:55)
[2021-06-29] VITALS: BP 142/84; PULSE 100; RESP 17; TEMP 36.2; O2SAT 94
[2021-06-29] MEDS: methylPREDNISolone Sod Succ 40 MG/ML VIAL 30 MG IVPUSH ×2 (02:16→09:13)
[2021-06-29 03:52] VITALS: BP 138/84; PULSE 82; RESP 18; TEMP 36.4; O2SAT 95
[2021-06-29] MEDS: Morphine Sulfate 2 MG/ML CARTRIDGE IVPUSH (06:07)
[2021-06-29] MEDS: Omeprazole 40 MG CAPSULE.DR PO (06:07)
[2021-06-29 06:23] LABS: Basophils Percent Auto 0.1 % (0-2); Hematocrit 31.5 % (37.0-47.0); Imm Gran Abs Auto 0.35 X10*3/uL (0.00-0.03); Imm Gran Pct Auto 2.3 % (0.0-0.4); Lymphocytes Absolute Auto 0.4 X10*3/uL (1.2-4.9); Lymphocytes Percent Auto 2.6 % (20-40); MANUAL DIFF FLAG SCAN; Mean Corpuscular HGB Conc 28.6 g/dl (31.0-35.0); Mean Corpuscular Hemoglobin 21.6 pg (27.0-33.0); Mean Corpuscular Volume 75.5 fL (80.0-98.0); Mean Platelet Volume 9.9 fL (9.4-12.3); Monocytes Absolute Auto 0.6 X10*3/uL (0.1-1.2); Neutrophils Absolute Auto 13.8 x10*3/uL (2.0-8.3); Platelet Count 351 X10*3/uL (160-400); Red Blood Count 4.17 X10*6/uL (4.20-5.50); Red Cell Distribution Width 28.8 % (11.0-16.0); SCAN SMEAR FLAG 1; White Blood Count 15.2 X10*3/uL (4.8-10.8)
[2021-06-29 06:28] LABS: INTERNATIONAL NORM RATIO 1.3 (0.9-1.1); Prothrombin Time 14.3 SEC (9.9-13.0)
[2021-06-29 06:40] LABS: SLIDE REVIEW VERIFIED
[2021-06-29 06:46] LABS: Alanine Aminotransferase 22 U/L (0-31); Albumin Level 3.1 g/dL (3.5-5.0); Alkaline Phosphatase 111 U/L (39-117); Anion Gap 11 (12-20); Aspartate Amino Transferase 9 U/L (5-31); Bilirubin Total 0.5 mg/dL (0.0-1.0); Blood Urea Nitrogen 18 mg/dL (9-16); Calcium 9.1 mg/dL (8.4-10.2); Carbon Dioxide 29 mmol/L (22-29); Chloride 104 mmol/L (96-108); Creatinine Clr Calc Pharmacy 67.8; Estimated Glomerular Filt Rate > 60; Glucose Fasting 221 mg/dL (60-99); Potassium 4.7 mmol/L (3.3-5.1); Sodium 139 mmol/L (135-145); Total Protein 5.2 g/dL (6.5-8.0)
[2021-06-29 08:00] VITALS: BP 143/80; PULSE 90; RESP 19; TEMP 36.8; O2SAT 96
[2021-06-29] MEDS: Rivaroxaban 15 MG TABLET PO (09:13)
[2021-06-29] MEDS: Folic Acid 1 MG TABLET PO (09:13)
[2021-06-29] MEDS: Famotidine/PF 20 MG/2 ML VIAL IVPUSH (09:13)
[2021-06-29] MEDS: Docusate Sodium 100 MG CAPSULE PO (09:13)
[2021-06-29] MEDS: Nystatin Oral Susp 500,000 UNIT/5 ML ORAL.SUSP 400000 UNIT PO (09:13)
[2021-06-29] MEDS: Pregabalin 150 MG CAPSULE PO (09:14)
[2021-06-29] MEDS: 0.9 % Sodium Chloride Flush 3 ML SYRINGE IVFLUSH (09:22)
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
--- NOTE | 2021-10-19 15:56 | PM.DS ---
DS: Providers Provider Date of Service: 10/19/21 Date of admission: 06/18/21 03:36 Date of discharge: 06/29/21 Primary care physician: Carlos Alberto Rodriges Consults: 06/18/21 13:56 Consult to Critical Care Routine Consulting Provider: Jaret Fraga Reason for consultation: acute hypoxemic resp failure-pulm embolism /asp pna -level of care Has provider been notified: No 06/19/21 08:11 Consult to Pulmonology Routine Consulting Provider: Gamaliel Correa Reason for consultation: hypoxia/asp pna, pulm embolism Has provider been notified: No 06/19/21 13:30 Consult to Hematology / Oncology Routine Consulting [place] [facility] [place] Reason for consultation: pulm embolism Has provider been notified: No 06/25/21 08:38 Consult to Pulmonology Routine Consulting Provider: Crys Camp Reason for consultation: worsening hypoxia 06/25/21 09:01 Consult to Infectious Diseases Routine Consulting Provider: Marina Goodson Reason for consultation: sepsis, pneumonia 06/29/21 07:21 Consult to Psychiatry Stat Consulting Provider: Psych Covering Reason for consultation: comp[etency eval...thanks DS: Diagnosis Discharge Diagnosis (1) Pulmonary embolism: Status: Acute (2) Recurrent aspiration pneumonia: Status: Acute DS: Summary Hospital Course Hospital Course: 76-year-old female with a past medical history of rheumatoid arthritis, tobacco dependence, vertebral compression fracture, chronic back pain, iron deficiency anemia, history of recurrent UTIs, history of diastolic heart failure, COPD, ILD, chronic respiratory failure on 4 L of home oxygen, history of left lower extremity DVT? and had been on Eliquis. 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 She left AMA on 06/16/21 because I was worry about my cat . She comes back today with increasing shortness of breath and found by EMS to be severely hypoxic with oxygen saturation in the 60s on 4 liters.? CTA of chest shows?Subsegmental right middle lobe pulmonary emboli. 2.? Worsening bilateral lower lobe consolidations compared to prior. She is restarted on IV heparin and given IV abx for presumed aspiration pneumonia. Oxygenation has improved on high flow. Hospital course Patient was once again admitted and started on IV heparin given IV Lasix for pneumonia. Over the next 10 days she was compliant very agitated that she wanted to go home for her cats. On the day of discharge she was adamant about leaving; psych consult was placed for competency and she was found to be competent. Patient signed out AMA; was instructed to return if symptoms did not improve Time Spent with Patient Time attestation: Total time spent providing and/or coordinating discharge services: Discharge coordination time: Greater than 30 minutes Quality: Safe Use of Opioids Does Pt have an Active Cancer Diagnosis on the Problem List?: No Quality: Stroke Does the patient have a stroke diagnosis?: No Physical Exam Vital Signs: Vital Signs: Last Vital Signs Temp 98.3 F 06/29/21 08:00 Pulse 90 06/29/21 08:00 Resp 19 06/29/21 08:00 BP 143/80 H 06/29/21 08:00 Pulse Ox 96 06/29/21 08:00 BMI result Body Mass Index 24.5 Const: Other: no acute distress Resp: Other: clear to auscultation bilaterally no rales rhonchi or wheezes Cardio: Other: no S4; positive S1-S2; no S3 murmurs of to gallops GI: Other: soft nontender nondistended with normoactive bowel sounds Extrem: Other: no edema bilaterally DS: Data Data Completed and Pending Completed studies during hospitalization [Text1]: Procedures Dilation of Left Common Carotid Artery, Percutaneous Approach (06/11/21) Dilation of Upper Artery with Intraluminal Device, Percutaneous Approach (06/11/21) Discharge Plan Discharge Patient Disposition: Left Against Medical Advice Discharge Diagnosis: COPD exacerbatrion Referrals: Carlos Alberto Rodriges [Primary Care Provider] - 1 Week Discharge Medications: No Action bisacodyl [Dulcolax (bisacodyl)] 5 mg tablet,delayed release (DR/EC) 10 mg PO BEDTIME 30 Days Qty: 60 3RF zolpidem 5 mg tablet 5 mg PO BEDTIME PRN (Reason: Insomnia) 0RF pregabalin 150 mg capsule 150 mg PO TID 0RF risedronate 150 mg tablet 1 tab PO QMONTH 0RF Linzess 290 mcg capsule 290 mcg PO BEDTIME 0RF prednisone 20 mg tablet 10 mg PO DAILY 0RF lorazepam 1 mg tablet 1 mg PO DAILY PRN (Reason: Anxiety) 0RF amoxicillin-pot clavulanate [Augmentin] 875-125 mg tablet 1 tab PO BID Qty: 6 0RF prednisone 20 mg tablet 40 mg PO DAILY Qty: 6 0RF cyanocobalamin (vitamin B-12) 1,000 mcg tablet 1,000 mcg PO BEDTIME 0RF omeprazole 40 mg capsule,delayed release(DR/EC) 40 mg PO DAILY@0630 0RF methotrexate sodium 2.5 mg tablet 10 mg PO SA@0900 0RF docusate sodium 100 mg capsule 100 mg PO BID 0RF folic acid 1 mg tablet 1 mg PO BID 0RF oxycodone 5 mg tablet 5 mg PO TID PRN (Reason: Pain) 0RF Anoro Ellipta 62.5-25 mcg/actuation Blister With Device 1 inh INHALATION DAILY 0RF Eliquis 5 mg Tablet 5 mg PO BID Qty: 72 0RF Rx Instructions: take 10mg twice daily for 7 days then 5 mg twice daily Discharge Orders: Discharge Order (Routine); Ordered 10/19/21 Ordered By: Arnold Palomino Diet: advance to usual diet Activity on Discharge: As tolerated Care Plan Goals: AMA Health Concerns: AMA Plan of Treatment: AMA Assessment: AMA Discharge Date/Time: 06/29/21 12:28
== END 2021-06-29 12:28 | disposition left against medical advice (07) | DRG 871 ==
LOC: HO.ED 06-18 01:47 → HO.EDOVER 06-18 03:59 → HO.S3 06-18 13:44 → HO.EDOVER 06-18 14:46 → HO.IMC 06-21 08:52 → HO.S3 06-26 11:13
PROVIDERS: Hospitalist; Internal Medicine; Internal Medicine Pulmonary Disease; Student in an Organized Health Care Education/Training Program; Admitting Provider Internal Medicine; Emergency Provider Emergency Medicine; PCP Hospitalist; Visit Provider Hospitalist
DX: A41.9 Sepsis, unspecified organism (principal); I26.93 Single subsegmental thrombotic pulmonary embolism without acute cor pulmonale; J96.21 Acute and chronic respiratory failure with hypoxia; J69.0 Pneumonitis due to inhalation of food and vomit; I82.B22 Chronic embolism and thrombosis of left subclavian vein; I50.32 Chronic diastolic (congestive) heart failure; J44.1 Chronic obstructive pulmonary disease with (acute) exacerbation; E44.1 Mild protein-calorie malnutrition; I74.2 Embolism and thrombosis of arteries of the upper extremities; B37.0 Candidal stomatitis; Z68.24 Body mass index [BMI] 24.0-24.9, adult; M06.9 Rheumatoid arthritis, unspecified; G89.29 Other chronic pain; S02.2XXA Fracture of nasal bones, initial encounter for closed fracture; W19.XXXA Unspecified fall, initial encounter; F41.9 Anxiety disorder, unspecified; Y93.9 Activity, unspecified; Y92.230 Patient room in hospital as the place of occurrence of the external cause; Z87.440 Personal history of urinary (tract) infections; Z99.81 Dependence on supplemental oxygen; Z87.891 Personal history of nicotine dependence; Z79.01 Long term (current) use of anticoagulants; Z79.52 Long term (current) use of systemic steroids; Z79.899 Other long term (current) drug therapy
CPT/HCPCS: 36415; 36600; 70450; 71045; 71275; 80048; 80053; 80076; 80202; 82565; 82803; 83605; 83735; 84100; 84145; 84484; 85025; 85027; 85379; 85597; 85610; 85613; 85730; 87040; 87086; 87088; 87186; 87635; 92610; 93005; 94640; 94644; 96361; 96365; 96367; 96372; 96375; 99285; 99291; J0295; J0456; J0696; J2060; J2270; J2543; J2920; J2930; J3370; Q9967